=== PATIENT | male | born 1955 | race Caucasian/White ===

== ENCOUNTER 2017-01-23 15:02 | Emergency (ER) | payer MEDICAID ==
[~2017-01-23] VITALS: Ht 180.3 cm; Wt 107.5 kg
--- NOTE | 2017-01-23 15:13 | Emergency Room Report ---
History of Present Illness Time Seen by MD Lemons Presenting Problem in Triage Pt arrived: Presenting Problem: Onset of symptoms date/time:/ or onset unknown for: Treatment Prior to Arrival: [employer] Provided by: Sepsis Risk Assessment: Temp: B/P: MAP: Pulse: Resp: Recent fever? Clinical Suspician of Infection? Mental Status: Sepsis Risk: Have you (or family members/close friends) recently traveled outside the [place]? If Yes, where/when: Have you had exposure to infectious disease within the past month? TB? Other? Specify: Source patient, RN notes reviewed Exam Limitations no limitations Comment Pt has had this feeding tube since September. This morning the tip of the tube came off and he threw it away. He comes to the ED to see if he can get a replacement. He has no other problems at this time Cardiac Chest Pain Chest pain indicative of cardiac No ALLERGIES Coded Allergies: No Known Allergies (01/23/17) Home Medications Reported Medications Levetiracetam (Keppra 500 Mg Tablet) 1,500 MG PO QHS Levetiracetam (Keppra 500 Mg Tablet) 1,000 MG PO DAILY Levothyroxine Sodium (Levothroid) 0.2 MG PO DAILY ASPIRIN (Aspirin) 81 MG PO DAILY Allopurinol (Zyloprim 300MG Tab Generic) 300 MG PO QHS Lisinopril (Zestril 20MG Tab) 20 MG PO QHS Indomethacin (Indocin) 25 MG PO QHS Nortriptyline Hcl 50 MG PO QHS Atorvastatin Calcium (Atorvastatin) 40 MG PO DAILY Lansoprazole (Lansoprazole) 30 MG PO DAILY #30 History Medical History General Angina: No [place]: No Hypertension? Yes Hyperlipidemia? Yes CHF? No COPD? No Asthma? No CVA? Yes Seizures? Yes Diabetes? No GB Disease: No MRSA? No TB? No Cancer? No Immunization Hx DT/Tetanus > 10 Years Ago Surgical Hx Previous Surgery?Y RIGHT KNEE FEEDING TUBE Social History Smoking Hx Packs/day < 1 Pack Alcohol Alcohol: No Review of Systems All Other Systems Reviewed and Negative Constitutional see HPI Gastrointestinal see HPI Physical Exam Vital Signs Vital Signs Date Time Temp Pulse Resp B/P Pulse O2 O2 Flow FiO2 Ox Delivery Rate 01/23 1504 98.3 85 18 112/77 98 General Appearance no apparent distress Respiratory Status No: respiratory distress. Cardiovascular normal exam Gastrointestinal normal bowel sounds, feeding tube with the tip pulled off. 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 No Departure Departure Time of Disposition 152 Disposition DC Home or Self Care(routine) Clinical Impression Primary Impression: PEG tube malfunction Condition STABLE Referrals MICHEAL ABBASI (Family) Additional Instructions Pt's port on his feeding tube was replaced and he is ready to go home. Discharge Counseling Counseled pt/family regarding diagnosis, home care, follow up needs ED Critical Care Critical Care No If Critical Care minutes are documented, the time involved in the performance of seperately reportable procedures was not counted toward critical care time documented. I directly delivered medical care to this critically ill and/or injured patient. Timely evaluation and treatment was necessary to address the significant organ system(s) dysfunction present in this patient. at [id number]
--- NOTE | 2017-01-23 15:13 | Emergency Room Report ---
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 Clinical Suspician of Infection? Mental Status: Sepsis Risk: Have you (or family members/close friends) recently traveled outside the [place]? If Yes, where/when: Have you had exposure to infectious disease within the past month? TB? Other? Specify: Source patient, RN notes reviewed Exam Limitations no limitations Comment Pt has had this feeding tube since September. This morning the tip of the tube came off and he threw it away. He comes to the ED to see if he can get a replacement. He has no other problems at this time Cardiac Chest Pain Chest pain indicative of cardiac No ALLERGIES Coded Allergies: No Known Allergies (01/23/17) Home Medications Reported Medications Levetiracetam (Keppra 500 Mg Tablet) 1,500 MG PO QHS Levetiracetam (Keppra 500 Mg Tablet) 1,000 MG PO DAILY Levothyroxine Sodium (Levothroid) 0.2 MG PO DAILY ASPIRIN (Aspirin) 81 MG PO DAILY Allopurinol (Zyloprim 300MG Tab Generic) 300 MG PO QHS Lisinopril (Zestril 20MG Tab) 20 MG PO QHS Indomethacin (Indocin) 25 MG PO QHS Nortriptyline Hcl 50 MG PO QHS Atorvastatin Calcium (Atorvastatin) 40 MG PO DAILY Lansoprazole (Lansoprazole) 30 MG PO DAILY #30 History Medical History General Angina: No [place]: No Hypertension? Yes Hyperlipidemia? Yes CHF? No COPD? No Asthma? No CVA? Yes Seizures? Yes Diabetes? No GB Disease: No MRSA? No TB? No Cancer? No Immunization Hx DT/Tetanus > 10 Years Ago Surgical Hx Previous Surgery?Y RIGHT KNEE FEEDING TUBE Social History Smoking Hx Packs/day < 1 Pack Alcohol Alcohol: No Review of Systems All Other Systems Reviewed and Negative Constitutional see HPI Gastrointestinal see HPI Physical Exam Vital Signs Vital Signs Date Time Temp Pulse Resp B/P Pulse O2 O2 Flow FiO2 Ox Delivery Rate 01/23 1504 98.3 85 18 112/77 98 General Appearance no apparent distress Respiratory Status No: respiratory distress. Cardiovascular normal exam Gastrointestinal normal bowel sounds, feeding tube with the tip pulled off. 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 No Departure Departure Time of Disposition 152 Disposition DC Home or Self Care(routine) Clinical Impression Primary Impression: PEG tube malfunction Condition STABLE Referrals MICHEAL ABBASI (Family) Additional Instructions Pt's port on his feeding tube was replaced and he is ready to go home. Discharge Counseling Counseled pt/family regarding diagnosis, home care, follow up needs ED Critical Care Critical Care No If Critical Care minutes are documented, the time involved in the performance of seperately reportable procedures was not counted toward critical care time documented. I directly delivered medical care to this critically ill and/or injured patient. Timely evaluation and treatment was necessary to address the significant organ system(s) dysfunction present in this patient. at [id number]
[2017-01-23 15:27] VITALS: BP 110/75
--- OUTSIDE RECORDS SUMMARY | 2017-02-02 04:21 | External Medical Summary Rpt | CCD ---
Author Author , KITTY Organization [facility] Address Unknown Phone Care Team Providers Care Secondary Spanish Teacher Name Role Phone [employer] Unavailable Unavailable INC, [employer] Unavailable Unavailable INC, [employer] [facility], Unavailable Unavailable [facility] ELROY, ELROY Unavailable Unavailable ELROY TRO, Unavailable Unavailable ELROY TRO BATTA BROWN, BATTA BROWN Unavailable Unavailable [facility] Unavailable Unavailable [facility], [facility] BIRRER PAT, BIRRER Unavailable Unavailable PAT AGUAYO NORA, AGUAYO NORA Unavailable Unavailable SUMAYA III ALICIA, Unavailable Unavailable SUMAYA III ALICIA CALLI, CALLI Unavailable Unavailable CALLI LAW, CALLI Unavailable Unavailable LAW [facility], [facility] BROWN TY, BROWN TY Unavailable Unavailable MARY MICAH, MARY Unavailable Unavailable MICAH MOHINI DEL, Unavailable Unavailable MOHINI DEL CAMILLI, CAMILLI Unavailable Unavailable [facility]ANE E[facility], Unavailable Unavailable [facility] CLAYBON LORENZO, CLAYBON Unavailable Unavailable LORENZO [facility] Unavailable Unavailable PHYSICIANS, [facility] Unavailable Unavailable INC, [facility] COUCH, COUCH Unavailable Unavailable YURIDIA SHARLA, Unavailable Unavailable YURIDIA SHARLA [facility] Unavailable Unavailable BEHAVIORAL, [facility] DEVARAJAN VID, Unavailable Unavailable DEVARAJAN VID DAVILA WANDA, DAVILA WANDA Unavailable Unavailable DOERGER, DOERGER Unavailable Unavailable DOMET AP, DOMET AP Unavailable Unavailable [facility], Unavailable Unavailable [facility] LANE JAM, LANE JAM Unavailable Unavailable [facility] Unavailable Unavailable [facility], [facility] MINDA SALDIVAR, MINDA Unavailable Unavailable JANNA FERTIKH VINCENT, FERTIKH Unavailable Unavailable VINCENT EUGENIA MICAH, EUGENIA MICAH Unavailable Unavailable EUGENIA JEFF, EUGENIA JEFF Unavailable Unavailable SABRINA AP, SABRINA Unavailable Unavailable AP JACY CANDE, JACY Unavailable Unavailable CANDE JETER MEGAN, JETER MEGAN Unavailable [facility]available [facility] Un[facility], [facility] Unavailable Unavailable [facility]OC, [facility] Unavailable Unavailable [place] [facility], [facility] [place] [facility], Unavailable Unavailable [facility], Unavailable Unavailable [facility], [facility]available [facility]available [facility] HULLER RAL, HULLER Unavailable Unavailable RAL IMWALLE LLOYD, IMWALLE Unavailable Unavailable LLOYD IN[facility]END[facility] Unavailable Unavailable ANESTHESIOLOGIST, [facility] IN[facility] DISE[facility] Unavailable Unavailable CONSULTAN, INFECTIOUS DISEASE CONSULTAN WICHO SHERMAN, OD, Unavailable Unavailable [facility], [facility] SHERMAN, OD, PSC JIBRINI MHA, JIBRINI Unavailable Unavailable MHA JIBRINI MHA, JIBRINI Unavailable Unavailable MHA COREY MAR, COREY Unavailable Unavailable MAR KALFAS MIN, KALFAS Unavailable Unavailable MIN KEMPINERS, KEMPINERS Unavailable Unavailable KEMPINERS JAM, Unavailable Unavailable KEMPINERS JAM [facility] Unavailable Unavailable IMAGING [facility], [facility] Unavailable Unavailable CARE, [facility] KERMAN ISAIAH, KERMAN Unavailable Unavailable ISAIAH CHELITA GIA, CHELITA GIA Unavailable Unavailable FRIAS, FRIAS Unavailable Unavailable [facility] Unavailable Unavailable 9, [facility] 9 [facility] Unavailable Unavailable ACTION_I, [facility] ACTION_I [facility] N, Unavailable Unavailable [facility] N LUBBERS MARJ, LUBBERS Unavailable Unavailable MARJ AGOSTO BYR, AGOSTO BYR Unavailable Unavailable VANG DOMINGA, Unavailable Unavailable VANG DOMINGA MARY CARMEN AP, MARY CARMEN Unavailable Unavailable AP MCDANNOLD TER, Unavailable Unavailable MCDANNOLD TER MEDEYINLO JASMINA, Unavailable Unavailable MEDEYINLO JASMINA TIO MAR, TIO MAR Unavailable Unavailable Martin, Martin Unavailable Unavailable ARLINE ATT, ARLINE Unavailable Unavailable ATT MILES PAT, MILES PAT Unavailable Unavailable BUNCH BRA, BUNCH Unavailable Unavailable BRA ARGENTINA NORA, ARGENTINA Unavailable Unavailable NORA TONY NORA, TONY Unavailable Unavailable NORA [facility], Unavailable Unavailable [facility] Unavailable Unavailable CARE, [place], [facility], Unavailable Unavailable [facility], [facility], Unavailable Unavailable [facility], Unavailable Unavailable [facility] Unavailable [facility]available [facility] Unavailable Unavailable [facility], [facility] Unavailable Unavailable [facility], [facility] Unavailable Unavailable [facility], [facility] PETTEY JAM, PETTEY Unavailable Unavailable [facility] Unavailable Unavailable [facility], [facility] Unavailable Unavailable [facility], [facility] CEJA GUY, Unavailable Unavailable CEJA GUY [facility] Unavailable Unavailable [place], [facility], [facility] Unavailable Unavailable ROSS GUR, ROSS Unavailable Unavailable GUR POLI CHR, POLI CHR Unavailable Unavailable SCHACK DENIA, SCHACK Unavailable Unavailable DENIA ROCK AP, ROCK Unavailable Unavailable AP RALPH GAR, RALPH Unavailable Unavailable GAR RALPH JAM, RALPH Unavailable Unavailable JAM SCHUSSLER, SCHUSSLER Unavailable Unavailable ANKUR GAR, ANKUR Unavailable Unavailable GAR MORENO PRA, MORENO PRA Unavailable Unavailable QUIRZO BARNEY, QUIROZ BARNEY Unavailable Unavailable [facility] Unavailable Unavailable [facility] Unavailable Unavailable HEALTHCARE EDGE, [facility] Unavailable Unavailable CARE, [facility] Unavailable Unavailable HOSPITAL, [facility], Unavailable Unavailable [facility]available Unavailable JUICE SCALEMAN , [facility] JUICE SCALEMAN [facility] Unavailable Unavailable CENTER, [facility] Unavailable Unavailable MEDICALCENTER, [facility] Unavailable Unavailable PHYSICIANS, [facility] Unavailable Unavailable PHYSICIANS EKG, [facility] Unavailable Unavailable PHYSICIANS END, [facility] Unavailable Unavailable [facility] END, [facility] STEINKAMP NORA, Unavailable Unavailable STEINKAMP NORA [facility], Unavailable Unavailable [facility], Unavailable Unavailable [facility], Unavailable Unavailable [facility] Unavailable Unavailable #5, [facility] UPADHAYAY ROBLES, Unavailable Unavailable UPADHKENY ROBLES VEAZEY AP, VEAZEY Unavailable Unavailable AP WHATLEY, WHATLEY Unavailable Unavailable WELLS NATALIA, WELLS NATALIA Unavailable Unavailable WELLS SEA, WELLS SEA Unavailable Unavailable JAJA, JAJA Unavailable Unavailable MERRY COLON, Unavailable Unavailable MERRY COLON GRAY, GRAY Unavailable Unavailable ARCELIA JR, ARCELIA Unavailable Unavailable JR MONIKA ANT, Unavailable Unavailable MONIKA ANT Purpose Continuity of Care Document - 09-28-2009 through 2016 Problems Code Diagnosis DOS Provider Status [id number] LOC-REL SX 11-08-2016 EPILEPSY [facility] W/SPS NOT HOME CARE INTRACT W/O SE I10 ESSENTIAL 11-08-2016 PRIMARY [facility] HYPERTENSIO [facility] C[facility] N B71282 HEMIPLEGIA 11-08-2016 FLW [facility] CEREBRAL HOME CARE INFARCT AFF LT NON-DOM [id number] DYSPHAGIA 11-08-2016 FOLLOWING [facility] INFARCTION I739 PERIPHERAL 11-08-2016 VASCULAR [facility] DISEASE HOME CARE UNSPECIFIED R1312 DYSPHAGIA 11-08-2016 OROPHARYNGE [facility] AL PHASE HOME CARE C95198 PERSONAL 11-08-2016 HISTORY OF [facility] NICOTINE HOME CARE DEPENDENCE Z931 GASTROSTOMY 11-08-2016 STATUS [facility] G8114 SPASTIC 10-17-2016 HEMIPLEGIA [facility] AFFECTING PHYSICIANS LT NONDOMINANT SIDE R69 ILLNESS 10-17-2016 LKLP CAC UNSPECIFIED INC REGION 9 Z6836 BODY MASS 10-17-2016 INDEX BMI [facility] 36.0-36.9 PHYSICIANS ADULT Z8589 PERSONAL HX 10-17-2016 MALIG [facility] NEOPLASM PHYSICIANS OTH ORGANS & SYSTEMS Z8673 PERSONAL HX 10-17-2016 TIA & [facility] CEREB PHYSICIANS INFARCT NO RESID DEFICIT K222 ESOPHAGEAL 10-06-2016 OBSTRUCTION [facility] PHYSICIANS K9429 OTHER 10-06-2016 COMPLICATIO [facility] NS OF PHYSICIANS GASTROSTOMY R633 FEEDING 10-06-2016 DIFFICULTIE [facility] S PHYSICIANS Z431 ENCOUNTER 10-05-2016 FOR [facility] ATTENTION PHYSICIANS TO GASTROSTOMY C140 MALIGNANT 10-04-2016 NEOPLASM OF [facility]X [facility] UNSPECIFIED EDGE K9423 GASTROSTOMY 10-04-2016 [facility] MALFUNCTION HEALTHCARE EDGE M109 GOUT 10-04-2016 ST UNSPECIFIED [facility] PHYSICIANS R1310 DYSPHAGIA 10-04-2016 ST UNSPECIFIED [facility] PHYSICIANS R52 PAIN 10-04-2016 [facility] UNSPECIFIED CO AMBULANCE TAXIN R531 WEAKNESS 10-04-2016 [facility] CO AMBULANCE TAX[facility] [id number] OTH MECH 10-04-2016 ST COMP OTH GI [facility] IMPL GFT EDGE INIT ENC Z439 ENCOUNTER 10-04-2016 [facility] FOR CO ATTENTION AMBULANCE UNS TAXIN ARTIFICIAL OPENING Z743 NEED FOR 10-04-2016 [facility] CONTINUOUS CO SUPERVISION AMBULANCE TAXIN K9422 GASTROSTOMY 09-12-2016 INFECTION [facility] PHYSICIANS W01661 CELLULITIS 09-12-2016 ST OF TRUNK [facility] UNSPECIFIED PHYSICIANS G4733 OBSTRUCTIVE 08-31-2016 PATIENT SLEEP [facility] INC [facility] ADULT PEDIATRIC M5116 INTERVERTEB 08-15-2016 [facility] D/O C CENTER W/RADICULOP ATHY LUMB RGN M9901 SEGMENTAL & 08-15-2016 [facility] DYSFUNCTION C CENTER CERVICAL REGION M9902 SEGMENTAL & 08-15-2016 [facility] DYSFUNCTION C CENTER THORACIC REGION Y24856 OTHER 08-09-2016 [facility] [place] [facility] INFARCTION R262 DIFFICULTY 08-09-2016 [facility] IN WALKING [place] NOT [place] [facility] ELSEWHERE CLASSIFIED Z4689 ENCOUNTER 08-09-2016 [facility] FITTING & [place] ADJUSTMENT [place] [facility] OT SPEC DEVICES Z993 DEPENDENCE 08-09-2016 [facility] ON [place] WHEELCHAIR [place] [facility] M170 BILATERAL 07-28-2016 PRIMARY [facility] OSTEOARTHRI PHYSICIANS TIS OF KNEE Z6835 BODY MASS 07-28-2016 ST INDEX BMI [facility] 35.0-35.9 PHYSICIANS ADULT B9689 OTH SPEC 07-15-2016 BACTERIAL [facility] AGNT CAUSE PHYSICIANS DZ CLASSIFIED ELSW J0190 ACUTE 07-15-2016 SINUSITIS [facility] UNSPECIFIED PHYSICIANS K219 GASTRO-ESOP 07-15-2016 ST H REFLUX [facility] DISEASE PHYSICIANS WITHOUT ESOPHAGITIS R05 COUGH 07-15-2016 ST [facility] PHYSICIANS R110 NAUSEA 07-15-2016 ST [facility] PHYSICIANS R509 FEVER 07-15-2016 UNSPECIFIED [facility] PHYSICIANS Z6834 BODY MASS 07-15-2016 ST INDEX BMI [facility] 34.0-34.9 PHYSICIANS ADULT E785 HYPERLIPIDE 07-11-2016 ST JULIANE [facility] UNSPECIFIED HEALTHCARE EDGE I951 ORTHOSTATIC 07-11-2016 [facility] HYPOTENSION MED CTR I9589 OTHER 07-11-2016 HYPOTENSION [facility] PHYSICIANS I959 HYPOTENSION 07-11-2016 [facility] UNSPECIFIED OF NOTH M1990 UNSPECIFIED 07-11-2016 [facility] OSTEOARTHRI MED CTR TIS UNSPECIFIED SITE R000 TACHYCARDIA 07-11-2016 [facility] UNSPECIFIED PHYSICIANS R12 HEARTBURN 07-11-2016 ST [facility] HEALTHCARE ED[facility] R7302 IMPAIRED 07-11-2016 GLUCOSE [facility] ORAL EDGE Z08 ENCOUNTER 07-11-2016 ST F/U EXAM [facility] AFTER CMPL PHYSICIANS TX MALIG NEOPLASM D96581 PERSONAL HX 07-11-2016 MAL SADIE [facility] OTH SITE PHYSICIANS LIP ORL CAV&PHARYNX Z923 PERSONAL 07-11-2016 HISTORY OF [facility] IRRADIATION HEALTHCARE EDGE R0602 SHORTNESS 06-15-2016 [facility] OF BREATH CO AMBULANCE TAXIN R062 WHEEZING 06-15-2016 [facility] CO AMBULANCE TAXIN Z452 ENCOUNTER 06-13-2016 ADJUSTMENT& [facility] MGMT HEALTHCARE VASCULAR EDGE ACCESS DEVICE K5909 OTHER 06-06-2016 CONSTIPATIO [facility] N PHYSICIANS E7800 PURE 05-17-2016 HYPERCHOLES [facility] TEROLEMIA PHYSICIANS UNSPECIFIED Z1159 ENCOUNTER 05-17-2016 FOR [facility] SCREENING PHYSICIANS FOR OTHER VIRAL DISEASES Z09 ENC F/U 05-12-2016 ST EXAM AFTR [facility] CMPL TX OTH MED CTR THAN MALIG NEOPLSM E039 HYPOTHYROID 05-09-2016 ST ISM [facility] UNSPECIFIED HEALTHCARE EDGE E669 OBESITY 05-09-2016 UNSPECIFIED [facility] HEALTHCARE EDGE R1314 DYSPHAGIA 05-09-2016 PHARYNGOESO [facility]AL [facility] PHASE EDGE B73184M UNS FB RESP 04-19-2016 ST TRACT PART [facility] UNS CAUS PHYSICIANS OTH INJ INT ENC C760 MALIGNANT 03-29-2016 RADIOLOGY NEOPLASM OF ASSOCIATES HEAD FACE OF NOTH AND NECK I517 CARDIOMEGAL 03-29-2016 ST Y [facility] MED CTR JUICE SCALEM[facility] ST Z7982 CUSTODIAL 03-29-2016 ST CURRENT USE [facility] OF ASPIRIN MED CTR JUICE SCALEMAN ST O75365 OTHER LONG 03-29-2016 ST TERM [facility] CURRENT MED CTR JUICE SCALEMAN DRUG ST THERAPY R2689 OTHER 03-23-2016 [facility] ABNORMALITI CO ES OF GAIT AMBULANCE AND TAXIN MOBILITY L22376 FACIAL 03-23-2016 [facility] WEAKNESS CO AMBULANCE TAXIN R413 OTHER 03-23-2016 [place] AM[facility] R4182 ALTERED 03-23-2016 [place] MENTAL MEDICAL STATUS IMAGING ASS UNSPECIFIED R42 DIZZINESS 03-23-2016 SHAI AND CO GIDDINESS AMBULANCE TAXIN R569 UNSPECIFIED 03-23-2016 [facility]ANS, CONVULSIONS [facility] M179 OSTEOARTHRI 02-23-2016 PATIENT TIS OF KNEE AIDS INC UNSPECIFIED C024 MALIGNANT 02-09-2016 HEAD & NECK NEOPLASM OF SURGERY LINGUAL ASSOC TONSIL R490 DYSPHONIA 02-09-2016 [facility] SURGERY ASSOC R682 DRY MOUTH 02-09-2016 HEAD & NECK UNSPECIFIED SURGERY ASSOC K27637 CELLULITIS 01-19-2016 ST OF BUTTOCK [facility] PHYSICIANS Z23 ENCOUNTER 01-19-2016 ST FOR [facility] IMMUNIZATIO PHYSICIANS N Z6838 BODY MASS 01-19-2016 ST INDEX BMI [facility] 38.0-38.9 PHYSICIANS ADULT E780 PURE 11-06-2015 ST HYPERCHOLES [facility] TEROLEMIA PHYSICIANS M1711 UNILATERAL 11-06-2015 ST PRIMARY [facility] OSTEOARTHRI PHYSICIANS TIS RIGHT KNEE H905 UNSPECIFIED 10-20-2015 ST [facility] SENSORINEUR MED CTR JUICE SCALEMAN AL HEARING ST LOSS K117 DISTURBANCE 10-20-2015 ST S OF [facility] SALIVARY MED CTR JUICE SCALEMAN SECRETION ST J384 EDEMA OF 08-07-2015 HEAD & NECK LARYNX SURGERY ASSOC K81211 ENCOUNTER 08-04-2015 ST FOR OTHER [facility] PREPROCEDUR MED CTR AL EXAMINATION G8110 SPASTIC 08-03-2015 ST HEMIPLEGIA [facility] AFFECTING PHYSICIANS UNSPECIFIED SIDE R1319 OTHER 07-13-2015 ST DYSPHAGIA [facility] MED CTR JUICE SCALEMAN ST I313 PERICARDIAL 07-10-2015 ST EFFUSION [facility] NONINFLAMMA MED CTR JUICE SCALEMAN TORY ST J3800 PARALYSIS 07-10-2015 ST OF VOCAL [facility] CORDS AND MED CTR JUICE SCALEMAN LARYNX ST UNSPECIFIED J90 PLEURAL 07-10-2015 RAD[facility]OLOGY EFFUSION ASSOCIATES NOT OF NOTH ELSEWHERE CLASSIFIED S47927 PERSONAL HX 07-10-2015 ST MAL SADIE [facility] UNS SITE MED CTR JUICE SCALEMAN LIP ORL ST CAV&PHARYNX C099 MALIGNANT 06-30-2015 HEAD & NECK NEOPLASM OF SURGERY TONSIL ASSOC UNSPECIFIED H903 SENSORINEUR 06-30-2015 HEAD & NECK AL HEARING SURGERY LOSS ASSOC BILATERAL H9319 TINNITUS 06-30-2015 HEAD & NECK UNSPECIFIED SURGERY EAR ASSOC I6990 UNS 02-28-2015 PERSONAL SEQUELAE TOUCH HOME UNSPECIFIED CARE OF CEREBROVASC ULAR DISEASE R32 UNSPECIFIED 02-28-2015 PERSONAL URINARY TOUCH HOME INCONTINENC CARE OF E Z26602 REGULAR 02-23-2015 WICHO SHERMAN, OD, BILATERAL PSC H6123 IMPACTED 02-05-2015 HEAD & NECK CERUMEN SURGERY BILATERAL ASSOC Z430 ENCOUNTER 02-05-2015 HEAD & NECK FOR SURGERY ATTENTION ASSOC TO TRACHEOSTOM Y 2749 GOUT, 01-09-2015 ST UNSPECIFIED [facility] PHYSICIANS 85188 UNSPECIFIED 01-09-2015 ST ACUTE [facility] CONJUNCTIVI PHYSICIANS TIS 94172 01-09-2015 LKLP CAC INC REGION 9 9349 FOREIGN 01-09-2015 ST BODY IN [facility] RESPIRATORY PHYSICIANS TREE UNSPECIFIED 2114 BENIGN 01-07-2015 ST NEOPLASM OF [facility] RECTUM AND MED CTR JUICE SCALEMAN ANAL CANAL ST 5690 ANAL AND 01-07-2015 ST. RECTAL [facility] POLYP PHYSICIANS END V1002 PERS HX MAL 01-07-2015 ST NEOPLSM [facility] OTH&UNS MED CTR JUICE SCALEMAN PART ORL ST CAV&PHARYNX V7651 SPECIAL 01-07-2015 ST. SCREENING [facility] FOR PHYSICIANS MALIGNANT END NEOPLASMS COLON 4389 UNSPEC LATE 12-27-2014 PERSONAL EFF TOUCH HOME [place]EREBRVASC [place] [address] UNSPECIFIED 12-27-2014 PERSONAL URINARY TOUCH HOME INCONTINENC CARE OF E 1416 MALIGNANT 12-19-2014 ST NEOPLASM OF [facility] LINGUAL MED CTR JUICE SCALEMAN TONSIL ST 1619 MALIGNANT 12-19-2014 ONCOLOGY NEOPLASM OF HEMATOLOGY LARYNX CARE, IN UNSPECIFIED SITE V6759 OTHER 12-19-2014 ST FOLLOW-UP [facility] EXAMINATION MED CTR JUICE SC[place]EM[place] OTHER ST [address] OCCLUSION&S 11-10-2014 ST TENOSIS [facility] VERTEBRAL PHYSICIANS ARTERY W/INFARCT 7295 PAIN IN 11-10-2014 ST SOFT [facility] TISSUES OF PHYSICIANS LIMB 7871 HEARTBURN 11-10-2014 ST [facility] PHYSICIANS 4618 OTHER ACUTE 09-09-2014 HEAD & NECK SINUSITIS SURGERY ASSOC V672 CHEMOTHERAP 09-09-2014 HEAD & NECK Y FOLLOW-UP SURGERY ASSOC EXAMINATION 1460 MALIGNANT 09-01-2014 ST NEOPLASM OF [facility] TONSIL MED CTR JU[address] ST 15293 OSTEOARTHRO 09-01-2014 ST SIS UNSPEC [facility] WHETHER MED CTR JUICE SCALEMAN GEN/LOC ST ANK&FOOT 61717 OBSTRUCTIVE 08-11-2014 PATIENT SLEEP AIDS INC APNEA 11746 LOSS OF 08-05-2014 [place] [address] UNSPEC 07-03-2014 ST HEMIPLEGIA [facility] AFFECTING PHYSICIANS UNSPEC SIDE 20288 ATAXIA 07-03-2014 ST LATE EFFECT [facility] OF PHYSICIANS CEREBROVASC ULAR DISEASE 4400 ATHEROSCLER 06-24-2014 ST OSIS OF [facility] AORTA MED CTR JUICE SCALEM[facility] ST 5920 CALCULUS OF 06-24-2014 ST KIDNEY [facility] [address]52 UNSPECIFIED 05-02-2014 ST CEREBRAL [facility] ARTERY PHYSICIANS OCCLUSION W/INFARCT 71335 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 STAPH CONSULTAN AUREUS SEPTICEMIA 7907 BACTEREMIA 04-28-2014 INFECTIOUS DISEASE CONSULTAN V153 PERS HX 03-28-2014 ST IRRADIATION [facility] PRESENTING MED CTR JUICE SCALEMAN HAZARDS ST [facility]ALTH V5411 AFTERCARE 03-26-2014 [facility] MEDICAL TRAUMATIC IMAGING ASS FRACTURE UPPER ARM V7260 LABORATORY 03-24-2014 ST EXAMINATION [facility] MED CTR JUICE SCALEMAN UNSPECIFIED ST 36491 OTHER LATE 03-15-2014 PERSONAL EFFECTS OF TOUCH HOME CEREBROVASC CARE OF ULAR DISEASE V441 GASTROSTOMY 03-15-2014 [place] [address] CLOSED 03-14-2014 [place] FRACTURE OF [facility] UNSPECIFIED PART OF HUMERUS 05012 CLOSED 03-14-2014 [facility] FRACTURE OF PHYSICIANS SHAFT OF GROUP HUMERUS 1490 MALIGNANT 03-13-2014 RADIOLOGY NEOPLASM OF ASSOCIATES PHARYNX OF [facility] UNSPECIFIED 1990 OTHER 03-13-2014 ST MALIGNANT [facility] NEOPLASM OF MED CTR JUICE SCALEMAN ST UNSPECIFIED SITE 4730 CHRONIC 03-13-2014 ST MAXILLARY [facility] SINUSITIS MED CTR JUICE SCALEM[facility] ST 7856 ENLARGEMENT 03-13-2014 ST OF LYMPH [facility] NODES MED [facility] [place] [address] [address]87 GENERALIZED 03-07-2014 ST PAIN [facility] [address] 25393 CLOSED 03-07-2014 ST FRACTURE [facility] UNSPEC PART MED CTR JUICE SCALEMAN UPPER END ST HUMERUS 79663 CLOSED 03-07-2014 RADIOLOGY FRACTURE OF ASSOCIATES SURGICAL OF NOT NECK OF HUMERUS 10799 OTHER 03-07-2014 ADVANCED CLOSED TECHNOLOGIE FRACTURES S INC OF UPPER END OF HUMERUS 43239 LEUKOCYTOPE 02-25-2014 ST CHIVO [facility] UNSPECIFIED PHYSICIANS 3670 HYPERMETROP 02-20-2014 WICHO SHERMAN, OD, PSC 58606 VITREOUS 02-20-2014 WICHO SHERMAN, OD, N PSC 38579 VOMITING 02-18-2014 ST ALONE [facility] PHYSICIANS 2449 UNSPECIFIED 02-12-2014 JIBRINI MHA HYPOTHYROID ISM 45617 OTHER 02-12-2014 JIBRINI MHA CONVULSIONS V440 TRACHEOSTOM 02-12-2014 JIBRINI MHA Y STATUS 20731 FEVER 02-05-2014 JIBRINI MHA UNSPECIFIED V580 RADIOTHERAP 01-23-2014 ST Y [facility] CTR JUICE SCALEM[facility] ST V5811 ENCOUNTER 01-23-2014 ST FOR [facility] ANTINEOPLAS MED CTR JUICE SCALEMAN TIC ST CHEMOTHERAP Y V5869 LONG-TERM 01-23-2014 ST (CURRENT) [facility] USE OF MED CTR JUICE SCALEMAN OTHER ST MEDICATIONS 7850 UNSPECIFIED 01-22-2014 JIBRINI MHA TACHYCARDIA 92616 NAUSEA WITH 01-22-2014 JIBRINI MHA VOMITING 07040 ABDOMINAL 01-22-2014 JIBRINI MHA PAIN, UNSPECIFIED SITE 4019 UNSPECIFIED 01-15-2014 JIBRINI MHA ESSENTIAL HYPERTENSIO N 2761 HYPOSMOLALI 01-07-2014 ST TY AND/OR [facility] HYPONATREMI PHYSICIANS A 33772 CHEST PAIN 01-07-2014 ST UNSPECIFIED [facility] PHYSICIANS 1950 MALIGNANT 01-03-2014 ONCOLOGY NEOPLASM OF HEMATOLOGY HEAD FACE CARE, IN AND NECK 50751 NEUTROPENIA 01-03-2014 ST [facility] UNSPECIFIED PHYSICIANS 2859 UNSPECIFIED 12-30-2013 [place] [address] DRUG 12-29-2013 ST INDUCED [facility] NEUTROPENIA MED CTR JUICE SCALEM[facility] ST 4589 UNSPECIFIED 12-29-2013 ST [facility] HYPOTENSION MED [facility] 75434 DYSPLASIA 12-29-2013 ST OF ANUS [facility] PHYSICIANS 37806 OTHER 12-27-2013 RADIOLOGY NONSPECIFIC ASSOCIATES ABNORMAL OF [facility] FINDING OF LUNG FIELD 88224 DEHYDRATION 12-13-2013 ONCOLOGY HEMATOLOGY CARE, [place] 5277 DISTURBANCE 12-13-2013 ONCOLOGY OF HEMATOLOGY SALIVARY CARE, IN SECRETION V5881 FITTING AND 12-04-2013 RADIOLOGY ADJUSTMENT ASSOCIATES OF OF [facility] VASCULAR CATHETER 4660 ACUTE 11-22-2013 [facility] BRONCHITIS POINT C[facility] & REHABILI 7197 DIFFICULTY 11-22-2013 [facility] IN WALKING POINT CARE & REHABILI 19934 MUSCLE 11-22-2013 [facility] WEAKNESS POINT CARE (GENERALIZE & REHABILI D) 74947 DYSPHAGIA 11-22-2013 [facility] UNSPECIFIED POINT CARE & REHABILI V550 ATTENTION 11-22-2013 [facility] TO [facility] TRACHEOSTOM & REHABILI Y V551 ATTENTION 11-22-2013 [facility] TO [facility] GASTROSTOMY & REHABILI V5789 OTHER 11-22-2013 [facility] SPECIFIED [facility] REHABILITAT & REHABILI ION PROCEDURE OTHER 70823 UNSPECIFIED 11-04-2013 [place]AT[place] N [address] UNSPECIFIED 11-01-2013 INDEPENDENT DENTAL CARIES ANESTHESIOL OGIST 1471 MALIGNANT 10-31-2013 [facility]LASM [facility] POSTERIOR OF NOT WALL NASOPHARYNX 2390 NEOPLASM 10-31-2013 RADIOLOGY UNSPECIFIED ASSOCIATES NATURE OF [facility] DIGESTIVE SYSTEM V5882 ENCOUNTER 10-31-2013 RADIOLOGY FITTING&ADJ ASSOCIATES OF [facility] NON-VASCULA R CATHETER NEC 2639 UNSPECIFIED 10-29-2013 INDEPENDENT PROTEIN-LESLIE ANESTHESIOL ORIE OGIST MALNUTRITIO N 7833 FEEDING 10-29-2013 ST DIFFICULTIE [facility] S AND PHYS[facility] MISMANAGEME NT 7842 SWELLING 10-29-2013 ST MASS OR [facility] IN PHYSICIANS HEAD AND NECK 63975 HYPOXEMIA 10-29-2013 ST [facility] 7991 RESPIRATORY 10-28-2013 HEAD & NECK ARREST SURGERY ASSOC 46338 LOC-REL 10-22-2013 ST EPILEPSY & [facility] ES W/SPS FT CHEMO W/O INTRACTABL EPIL 42254 HYPERTROPHY 10-22-2013 INDEPENDENT OF TONSILS ALONE ANESTHESIOL OGIST V1254 PERSONAL HX 10-22-2013 ST TIA & CI [facility] W/O FT CHEMO RESIDUAL DEFICITS V1582 PERS HX 10-22-2013 ST TOBACCO USE [facility] PRESENTING FT CHEMO HAZARDS HEALTH V5866 LONG-TERM 10-22-2013 ST USE OF [facility] ASPIRIN FT CHEMO V7284 UNSPECIFIED 10-22-[facility] VE EKG EXAMINATION V8542 BODY MASS 10-22-2013 ST INDEX [facility] 45.0-49.9 FT CHEMO ADULT 2469 UNSPECIFIED 10-02-2013 ST DISORDER [facility] OF THYROID MED [facility] [address] [address] UNSPECIFIED 10-02-2013 ST SLEEP [facility] APNEA [facility] [facility] V641 SURG/OTH 10-02-2013 ST PROC NOT [facility] DONE MED CTR JUICE SCALEMAN BECAUSE ST CONTRAINDIC ATION 4748 OTHER 09-30-2013 CHRONIC [facility] DISEASE OF [place] TONSILS AND ADENOIDS 33355 OTHER 09-30-2013 DISEASES OF [facility] NASAL FT CHEMO CAVITY AND SINUSES 9330 FOREIGN 09-13-2013 ST BODY IN [place] [facility] 9085 LATE EFFECT 08-29-2013 SHAI OF FOREIGN CO BODY IN AMBULANCE ORIFICE TAXIN 9331 FOREIGN 08-29-2013 [place] BODY IN [facility] LARYNX INC 2724 OTHER AND 07-05-2013 UNSPECIFIED [facility] PHYSICIANS HYPERLIPIDE JULIANE 73202 OSTEOARTHRO 07-05-2013 SIS UNSPEC [facility] WHETHER PHYSICIANS GEN/LOC LOWER LEG [id number] IMPAIRED 07-05-2013 [facility] TEST [id number] OTHER ISSUE 07-05-2013 OF [facility] CERTIFICATE S V700 ROUTINE 07-05-2013 [facility] EXAM@HEALTH CARE FACL 2720 PURE 03-14-2013 HYPERCHOLES [facility] TEROLEMIA [facility] V0481 NEED 03-14-2013 PROPHYLACTI [facility] C [facility] VACCINATION &INOCULATIO N FLU V7644 SPECIAL 03-14-2013 SCREENING [facility] NEOPLASM OF PROSTATE 82411 OBESITY, 02-12-2013 UNSPECIFIED [facility] 54718 OTHER 02-12-2013 [facility] FATIGUE [facility] 11390 OTHER 02-12-2013 [facility] [place] [address] SPASM OF 01-01-2013 [facility] 7840 HEADACHE 10-15-2012 [facility] 7019 UNSPECIFIED 01-18-2012 [facility] HYPERTROPHI PHYSICIANS C&ATROPHIC CONDITION SKIN 7820 DISTURBANCE 01-18-2012 OF [facility] 92965 DIAB W/O 10-28-2011 COMP TYPE [facility] II/UNS NOT PHYSICIANS STATED UNCNTRL 7804 DIZZINESS 06-20-2011 [facility] GIDDINESS 3674 PRESBYOPIA 06-07-2011 WICHO SHERMAN, OD, PSC V571 OTHER 06-02-2011 [facility] [place] [address] OTH 06-07-2010 [facility] [place] [address] HEMIPL 04-28-2010 [facility] DUE CEREBRVASC DISEASE 88177 UNSPEC 01-15-2010 [facility]Y [facility] WITHOUT MEDICALCENT MENTION ER INTRACT EPILEPSY V4589 OTHER 01-15-2010 POSTSURGICA [facility] L STATUS MEDICALCENT OTHER ER 5849 ACUTE 12-11-2009 [facility] FAILURE [facility] UNSPECIFIED 76952 GEN CONVUL 12-10-2009 [facility] EPILEPSY HEALTHCARE W/O MENTION IN INTRACT EPILEPSY 46290 LOC-REL 12-10-2009 [facility] & [facility] W/SPS MED CTR W/INTRACTAB LE EPIL 16851 HTN CKD UNS 12-10-2009 W/CKD [facility] STAGE I [facility]ICALCENT THRU STAGE ER IV/UNS 4439 UNSPECIFIED 12-10-2009 PERIPHERAL [facility] DISEASE ER 5859 CHRONIC 12-10-2009 [facility]NEY [facility] DISEASE MEDICAL[facility]ENT UNSPECIFIED ER 7810 ABNORMAL 12-10-2009 [facility] MOVEMENTS AMBULANCE TAXIN V854 BODY MASS 12-10-2009 INDEX 40 [facility] ADULT ER 4011 ESSENTIAL 11-27-2009 HEAD & NECK HYPERTENSIO SURGERY N, BENIGN [facility] 00910 ACUTE 11-27-2009 HEAD & NECK GINGIVITIS SURGERY NONPLAQUE ASSOC INDUCED 51512 STOMATITIS 11-27-2009 HEAD & NECK AND SURGERY MUCOSITIS ASSOC UNSPECIFIED 7[address] AND 11-17-2009 ST COLLAPSE [facility] 58887 CEREBRAL 11-15-2009 THROMBOSIS [facility] WITH [facility] CTR CEREBRAL INFARCTION 19420 PAIN IN 11-03-2009 [facility] PSC 07414 PAIN IN 09-28-2009 [facility] Allergies, Adverse Reactions, Alerts Clinical Alert Notifications Alert Member has >/= 3 hosp admit & >/= 1 ED visit in 365 days Medications Na ND Rx Da Fi Fi Am Da Di Ph RX Ph St me C No te ll ll ou ys ag ar # ys at rm s nt no ma ic us Or Da si cy ia de te s n re d AT 60 09 10 30 30 00 TO Ac OR 50 -0 -0 .0 00 TA ti VA 52 5- 6- [address] 58 20 20 95 CA AT 00 17 17 69 RE IN 8 33 PH 40 AR MA MG CY TA #5 BL ET LE 16 09 10 15 30 00 TO Ac VE 71 -0 -0 0. 00 TA ti TI 40 5- 6- 00 00 L ve RA 35 20 20 0 95 CA CE 50 17 17 51 RE TA 1 67 M PH 50 AR 0 MA MG CY TA #5 BL ET AL 16 08 09 30 30 00 TO Ac LO 71 -2 -2 .0 00 TA ti PU 40 1- 2- 00 00 L ve RI 04 20 20 95 CA NO 21 17 17 63 RE L 1 15 30 PH 0 AR MG MA CY TA BL #5 ET NO 51 08 09 60 30 00 TO Ac RT 67 -2 -2 .0 00 TA ti RI 24 1- 2- 00 00 L ve PT 00 20 20 95 CA YL 30 17 17 17 RE IN 2 51 E PH HC AR L MA 50 CY MG #5 CA P LI 00 08 09 30 30 00 TO Ac SI 18 -2 -2 .0 00 TA ti NO 50 1- 2- 00 00 L ve MN 62 20 20 94 CA IL 01 17 17 73 RE 0 13 20 PH AR MG MA CY TA BL #5 ET LE 00 08 09 30 30 00 TO Ac VO 37 -0 -0 .0 00 TA ti TH 81 8- 1- 00 00 L ve YR 80 20 20 94 CA OX 31 17 17 44 RE IN 0 95 E PH 50 AR MA MC CY G TA #5 BL ET LE 16 08 09 15 30 00 TO Ac VE 71 -0 -0 0. 00 TA ti TI 40 4- 1- 00 00 L ve RA 35 20 20 0 95 CA CE 50 17 17 51 RE TA 1 67 M PH 50 AR 0 MA MG CY TA #5 BL ET AT 60 07 08 30 30 00 TO Ac OR 50 -2 -2 .0 00 TA ti VA 52 4- 5- [address] 58 20 20 95 CA AT 00 17 17 69 RE IN 8 33 PH 40 AR MA MG CY TA #5 BL ET NO 51 07 08 60 30 00 TO Ac RT 67 -2 -2 .0 00 TA ti RI 24 4- 5- 00 00 L ve PT 00 20 20 95 CA YL 30 17 17 17 RE IN 2 51 E PH HC AR L MA 50 CY MG #5 CA P SM 49 07 08 30 30 00 TO Ac 34 -1 -1 .0 00 TA ti LA 80 7- 8- 00 00 L ve NS 30 20 20 95 CA OP 16 17 17 62 RE RA 1 94 ZO PH LE AR MA DR CY 15 #5 MG CA P ME 00 07 08 12 30 00 TO TO 09 -2 -1 0. 00 TA ti CL 32 2- 8- 00 00 L ve OP 20 20 20 0 94 CA RA 40 17 17 56 RE MS 5 32 DE PH 5 AR MA MG CY TA #5 BL ET AL 16 07 08 30 30 00 TO LO 71 -1 -1 .0 00 TA ti PU 40 8- 8- 00 00 L ve RI 04 20 20 95 CA NO 21 17 17 63 RE L 1 15 30 PH 0 AR MG MA CY TA BL #5 ET LI 00 07 08 30 30 00 TO SI 18 -1 -1 .0 00 TA ti NO 50 7- 8- 00 00 L ve MN 62 20 20 94 CA IL 01 17 17 73 RE 0 13 20 PH AR MG MA CY TA BL #5 ET LE 16 07 08 15 30 00 TO Ac VE 71 -0 -0 0. 00 TA ti TI 40 6- 4- 00 00 L ve RA 35 20 20 0 95 CA CE 50 17 17 51 RE TA 1 67 M PH 50 AR 0 MA MG CY TA #5 BL ET LE 00 07 08 30 30 00 TO Ac VO 37 -0 -0 .0 00 TA ti TH 81 3- 4- 00 00 L ve YR 80 20 20 94 CA OX 31 17 17 44 RE IN 0 95 E PH 50 AR MA MC CY G TA #5 BL ET AT 69 06 07 30 30 00 TO Ac OR 09 -2 -2 .0 00 TA ti VA 70 6- 8- [address] 89 20 20 94 CA AT 91 17 17 18 RE IN 5 06 PH 40 AR MA MG CY TA #5 BL ET ME 00 06 07 12 30 00 TO Ac TO 09 -2 -2 0. 00 TA ti CL 32 6- 8- 00 00 L ve OP 20 20 20 0 94 CA RA 40 17 17 56 RE MS 5 32 DE PH 5 AR MA MG CY TA #5 BL ET ME 61 06 07 30 30 00 TO Ac LO 44 -1 -2 .0 00 TA ti XI 20 9- 1- 00 00 L ve CA 12 20 20 95 CA M 61 17 17 31 RE 7. 0 12 5 PH MG AR MA TA CY BL ET #5 NO 51 06 07 60 30 00 TO RT 67 -1 -2 .0 00 TA ti RI 24 9- 1- 00 00 L ve PT 00 20 20 95 CA YL 30 17 17 17 RE IN 2 51 E PH HC AR L MA 50 CY MG #5 CA P LI 00 06 07 30 30 00 TO SI 18 -1 -0 .0 00 TA ti NO 50 2- 7- 00 00 L ve MN 62 20 20 94 CA IL 01 17 17 73 RE 0 13 20 PH AR MG MA CY TA BL #5 ET AL 16 06 07 30 30 00 TO LO 71 -1 -0 .0 00 TA ti PU 40 2- 7- 00 00 L ve RI 04 20 20 92 CA NO 21 17 17 07 RE L 1 09 30 PH 0 AR MG MA CY TA BL #5 ET LA 55 06 07 30 30 00 TO Ac NS 11 -1 -0 .0 00 TA ti OP 10 2- 7- 00 00 L ve RA 39 20 20 94 CA ZO 90 17 17 37 RE LE [address] AR MA 30 CY MG #5 CA PS UL E LE 16 05 06 15 25 00 TO Ac VE 71 -3 -3 0. 00 TA ti TI 40 0- 0- 00 00 L ve RA 35 20 20 0 95 CA CE 50 17 17 18 RE TA 1 83 M PH 50 AR 0 MA MG CY TA #5 BL ET LE 00 05 06 30 30 00 TO Ac VO 37 -3 -3 .0 00 TA ti TH 81 0- 0- 00 00 L ve YR 80 20 20 94 CA OX 31 17 17 44 RE IN 0 95 E PH 50 AR MA MC CY G TA #5 BL ET NE 00 06 06 28 28 00 TO Ac XI 57 -0 -3 .0 00 TA ti UM 32 1- 0- 00 00 L ve 45 20 20 94 CA 24 02 17 17 56 RE HR 8 31 PH 22 AR .3 MA CY MG #5 CA PS UL E AT 69 05 06 30 30 00 TO Ac OR 09 -2 -2 .0 00 TA ti VA 70 3- 3- [address] 89 20 20 94 CA AT 91 17 17 18 RE IN 5 06 PH 40 AR MA MG CY TA #5 BL ET CE 00 05 06 40 10 00 TO PH 09 -2 -2 0. 00 TA ti AL 34 2- 3- 00 00 L ve EX 17 20 20 0 95 CA IN 77 17 17 11 RE 4 39 25 PH 0 AR MG MA /5 CY ML #5 JANE SP LE 16 05 06 15 30 00 TO VE 71 -0 -0 0. 00 TA ti TI 40 1- 2- 00 00 L ve RA 35 20 20 0 94 CA CE 50 17 17 24 RE TA 1 85 M PH 50 AR 0 MA MG CY TA #5 BL ET LA 55 05 06 30 30 00 TO NS 11 -0 -0 .0 00 TA ti OP 10 5- 2- 00 00 L ve RA 39 20 20 94 CA ZO 90 17 17 37 RE LE [address] AR MA 30 CY MG #5 CA PS UL E AL 16 05 06 30 30 00 TO LO 71 -1 -0 .0 00 TA ti PU 40 2- 2- 00 00 L ve RI 04 20 20 92 CA NO 21 17 17 07 RE L 1 09 30 PH 0 AR MG MA CY TA BL #5 ET NO 51 05 06 60 30 00 TO RT 67 -0 -0 .0 00 TA ti RI 24 8- 2- 00 00 L ve PT 00 20 20 94 CA YL 30 17 17 41 RE IN 2 22 E PH HC AR L MA 50 CY MG #5 CA P LI 00 05 06 30 30 00 TO SI 18 -0 -0 .0 00 TA ti NO 50 8- 2- 00 00 L ve MN 62 20 20 94 CA IL 01 17 17 73 RE 0 13 20 PH AR MG MA CY TA BL #5 ET LE 00 04 05 30 30 00 TO VO 37 -2 -1 .0 00 TA ti TH 81 6- 9- 00 00 L ve YR 80 20 20 94 CA OX 31 17 17 44 RE IN 0 95 E PH 50 AR MA MC CY G TA #5 BL ET ME 61 04 05 30 30 00 TO LO 44 -1 -1 .0 00 TA ti XI 20 9- 2- 00 00 L ve CA 12 20 20 94 CA M 61 17 17 41 RE 7. 0 23 5 PH MG AR MA TA CY BL ET #5 AT 69 04 05 30 30 00 TO OR 09 -2 -1 .0 00 TA ti VA 70 1- 2- [address] 89 20 20 94 CA AT 91 17 17 18 RE IN 5 06 PH 40 AR MA MG CY TA #5 BL ET NE 00 04 05 28 28 00 TO XI 57 -1 -1 .0 00 TA ti UM 32 9- 2- 00 00 L ve 45 20 20 94 CA 24 02 17 17 56 RE HR 8 31 PH 22 AR .3 MA CY MG #5 CA PS UL E LI 00 04 05 30 30 00 TO SI 18 -1 -0 .0 00 TA ti NO 50 0- 5- 00 00 L ve MN 62 20 20 92 CA IL 01 17 17 23 RE 0 59 20 PH AR MG MA CY TA BL #5 ET NO 51 04 05 60 30 00 TO RT 67 -1 -0 .0 00 TA ti RI 24 1- 5- 00 00 L ve PT 00 20 20 94 CA YL 30 17 17 41 RE IN 2 22 E PH HC AR L MA 50 CY MG #5 CA P AL 16 04 05 30 30 00 TO LO 71 -1 -0 .0 00 TA ti PU 40 0- 5- 00 00 L ve RI 04 20 20 92 CA NO 21 17 17 07 RE L 1 09 30 PH 0 AR MG MA CY TA BL #5 ET LA 55 04 04 30 30 00 TO NS 11 -0 -2 .0 00 TA ti OP 10 3- 8- 00 00 L ve RA 39 20 20 94 CA ZO 90 17 17 37 RE LE [address] AR MA 30 CY MG #5 CA PS UL E LE 16 03 04 15 30 00 TO VE 71 -2 -2 0. 00 TA ti TI 40 8- 1- 00 00 L ve RA 35 20 20 0 94 CA CE 50 17 17 24 RE TA 1 85 M PH 50 AR 0 MA MG CY TA #5 BL ET AZ 59 03 04 67 5 00 TO Ac IT 76 -2 -1 .5 00 TA ti HR 23 4- 4- 00 00 L ve OM 13 20 20 94 CA YC 00 17 17 56 RE IN 1 33 PH 20 AR 0 MA MG CY /5 #5 ML JANE SP ME 00 03 04 12 30 00 TO Ac TO 09 -2 -1 0. 00 TA ti CL 32 4- 4- 00 00 L ve OP 20 20 20 0 94 CA RA 40 17 17 56 RE MS 5 32 DE PH 5 AR MA MG CY TA #5 BL ET NE 00 03 04 28 28 00 TO Ac XI 57 -2 -1 .0 00 TA ti UM 32 4- 4- 00 00 L ve 45 20 20 94 CA 24 02 17 17 56 RE HR 8 31 PH 22 AR .3 MA CY MG #5 CA PS UL E MN 00 03 04 12 6 00 TO OM 60 -2 -1 0. 00 TA ti ET 31 1- 4- 00 00 L ve MINAYA 58 20 20 0 94 CA ZI 65 17 17 52 RE NE 8 58 -D PH M AR SY MA RU CY P #5 AT 60 03 04 30 30 00 TO Ac OR 50 -1 -0 .0 00 TA ti VA 52 7- 7- [address] 58 20 20 94 CA AT 00 17 17 18 RE IN 9 06 PH 40 AR MA MG CY TA #5 BL ET NO 51 03 03 60 30 00 TO RT 67 -1 -3 .0 00 TA ti RI 24 0- 1- 00 00 L ve PT 00 20 20 94 CA YL 30 17 17 41 RE IN 2 22 E PH HC AR L MA 50 CY MG #5 CA P LE 00 03 03 30 30 00 TO Ac VO 37 -1 -3 .0 00 TA ti TH 81 1- 1- 00 00 L ve YR 80 20 20 91 CA OX 31 17 17 20 RE IN 0 52 E PH 50 AR MA MC CY G TA #5 BL ET ME 61 03 03 30 30 00 TO Ac LO 44 -1 -3 .0 00 TA ti XI 20 0- 1- 00 00 L ve CA 12 20 20 94 CA M 61 17 17 41 RE 7. 0 23 5 PH MG AR MA TA CY BL ET #5 LA 55 03 03 30 30 00 TO Ac NS 11 -0 -3 .0 00 TA ti OP 10 7- 1- 00 00 L ve RA 39 20 20 94 CA ZO 90 17 17 37 RE LE [address] AR MA 30 CY MG #5 CA PS UL E LI 00 03 03 30 30 00 TO Ac SI 18 -0 -2 .0 00 TA ti NO 50 2- 4- 00 00 L ve MN 62 20 20 92 CA IL 01 17 17 23 RE 0 59 20 PH AR MG MA CY TA BL #5 ET AL 16 02 03 30 30 00 TO Ac LO 72 -2 -2 .0 00 TA ti PU 90 8- 4- 00 00 L ve RI 13 20 20 92 CA NO 51 17 17 07 RE L 6 09 30 PH 0 AR MG MA CY TA BL #5 ET LE 16 02 03 15 30 00 TO Ac VE 71 -2 -1 0. 00 TA ti TI 40 3- 7- 00 00 L ve RA 35 20 20 0 94 CA CE 50 17 17 24 RE TA 1 85 M PH 50 AR 0 MA MG CY TA #5 BL ET DO 49 02 03 20 10 00 TO Ac XY 88 -2 -1 .0 00 TA ti CY 40 3- 7- 00 00 L ve CL 72 20 20 94 CA IN 70 17 17 24 RE E 3 83 MO PH NO AR MA 10 CY 0 MG #5 CA P LE 00 02 03 30 30 00 TO Ac VO 37 -1 -1 .0 00 TA ti TH 81 3- 0- 00 00 L ve YR 80 20 20 91 CA OX 31 17 17 20 RE IN 0 52 E PH 50 AR MA MC CY G TA #5 BL ET AT 60 02 03 30 30 00 TO Ac OR 50 -1 -1 .0 00 TA ti VA 52 3- 0- [address] 58 20 20 92 CA AT 00 17 17 23 RE IN 9 60 PH 40 AR MA MG CY TA #5 BL ET PO 62 02 03 25 15 00 TO Ac LY 17 -1 -1 5. 00 TA ti ET 50 3- 0- 00 00 L ve HY 44 20 20 0 94 CA LE 21 17 17 14 RE NE 5 27 PH GL AR YC MA OL CY 33 #5 50 PO WD AL 16 01 02 30 30 00 TO Ac LO 71 -3 -2 .0 00 TA ti PU 40 0- 4- 00 00 L ve RI 04 20 20 92 CA NO 21 17 17 07 RE L 1 09 30 PH 0 AR MG MA CY TA BL #5 ET LI 00 02 02 30 30 00 TO Ac SI 18 -0 -2 .0 00 TA ti NO 50 1- 4- 00 00 L ve MN 62 20 20 92 CA IL 01 17 17 23 RE 0 59 20 PH AR MG MA CY TA BL #5 ET ME 29 01 02 30 30 00 TO LO 30 -2 -1 .0 00 TA ti XI 00 4- 7- 00 00 L ve CA 12 20 20 92 CA M 41 17 17 12 RE 7. 0 08 5 PH MG AR MA TA CY BL ET #5 NO 51 01 02 60 30 00 TO Ac RT 67 -2 -1 .0 00 TA ti RI 24 4- 7- 00 00 L ve PT 00 20 20 93 CA YL 30 17 17 17 RE IN 2 12 E PH HC AR L MA 50 CY MG #5 CA P LE 16 01 02 15 30 00 TO VE 71 -2 -1 0. 00 TA ti TI 40 5- 7- 00 00 L ve RA 35 20 20 0 90 CA CE 50 17 17 60 RE TA 1 94 M PH 50 AR 0 MA MG CY TA #5 BL ET ME 00 01 02 12 30 00 TO TO 09 -2 -1 0. 00 TA ti CL 32 7- 7- 00 00 L ve OP 20 20 20 0 93 CA RA 40 17 17 98 RE MS 5 85 DE PH 5 AR MA MG CY TA #5 BL ET LA 00 01 02 30 30 00 TO NS 37 -0 -1 .0 00 TA ti OP 88 9- 0- 00 00 L ve RA 03 20 20 92 CA ZO 00 17 17 12 RE LE [address] AR MA 30 CY MG #5 CA PS UL E LE 00 02 30 30 00 TO VO 37 -1 -1 .0 00 TA ti TH 81 7- 0- 00 00 L ve YR 80 20 20 91 CA OX 31 17 17 20 RE IN 0 52 E PH 50 AR MA MC CY G TA #5 BL ET NO 51 12 01 60 30 00 TO Ac RT 67 -2 -2 .0 00 TA ti RI 24 9- 0- 00 00 L ve PT 00 20 20 93 CA YL 30 16 17 17 RE IN 2 12 E PH HC AR L MA 50 CY MG #5 CA P AT 60 12 01 30 30 00 TO Ac OR 50 -2 -1 .0 00 TA ti VA 52 1- 3- [address] 58 20 20 92 CA AT 00 16 17 23 RE IN 9 60 PH 40 AR MA MG CY TA #5 BL ET LA 55 12 01 30 30 00 TO Ac NS 11 -1 -0 .0 00 TA ti OP 10 4- 9- 00 00 L ve RA 39 20 20 92 CA ZO 90 16 17 12 RE LE [address] AR MA 30 CY MG #5 CA PS UL E LE 16 02 02 11 15 30 TO 90 BR Ac VE 71 -1 -1 00 TA 60 OW ti TI 40 1- 7- .0 L 94 N ve RA 35 20 20 00 CA TY CE 50 16 16 RE D TA 1 M PH 50 AR 0 MA MG CY TA #5 BL ET PA 65 01 02 3 30 30 TO 90 SC Ac NT 86 -1 -1 0. TA 39 MINAYA ti OP 20 9- 5- 00 L 32 CK ve RA 56 20 20 0 CA ZO 09 16 16 RE BR LE 0 IA PH N SO AR D MA DR CY 40 #5 MG TA B AL 16 09 02 6 30 30 TO 89 SC Ac LO 71 -1 -1 0. TA 24 MINAYA ti PU 40 8- 2- 00 L 31 CK ve RI 04 20 20 0 CA NO 21 15 16 RE BR L 1 IA 30 PH N 0 AR MG MA CY TA BL #5 ET LI 00 01 02 3 30 30 TO 90 SC Ac SI 18 -0 -0 0. TA 23 MINAYA ti NO 50 4- 9- 00 L 58 FE ve MN 62 20 20 0 CA R IL 01 16 16 RE MS 0 CH 20 PH AE AR L MG MA G CY TA BL #5 ET AT 60 05 02 3 30 30 TO 88 SC Ac OR 50 -0 -0 0. TA 08 MINAYA ti VA 52 4- 9- 00 L [address] 58 20 20 0 CA R AT 00 15 16 RE MS IN 8 CH PH AE 40 AR L MA G MG CY TA #5 BL ET NO 51 12 02 2 60 30 TO 89 SC Ac RT 67 -0 -0 0. TA 99 MINAYA ti RI 24 9- 1- 00 L 82 CK ve PT 00 20 20 0 CA YL 30 15 16 RE BR IN 2 IA E PH N HC AR L MA 50 CY MG #5 CA P LE 16 12 01 6 15 30 TO 90 SC Ac VE 71 -2 -2 00 TA 10 MINAYA ti TI 40 1- 1- .0 L 89 FE ve RA 35 20 20 00 CA R CE 50 15 16 RE MS TA 1 CH M PH AE 50 AR L 0 MA G MG CY TA #5 BL ET PA 65 01 01 3 30 30 TO 90 SC Ac NT 86 -1 -1 0. TA 39 MINAYA ti OP 20 9- 9- 00 L 32 CK ve RA 56 20 20 0 CA ZO 09 16 16 RE BR LE 0 IA PH N SO AR D MA DR CY 40 #5 MG TA B NO 51 12 01 2 60 30 TO 89 SC Ac RT 67 -0 -0 0. TA 99 MINAYA ti RI 24 9- 5- 00 L 82 CK ve PT 00 20 20 0 CA YL 30 15 16 RE BR IN 2 IA E PH N HC AR L MA 50 CY MG #5 CA P AL 16 09 01 6 30 30 TO 89 SC Ac LO 71 -1 -0 0. TA 24 MINAYA ti PU 40 8- 4- 00 L 31 CK ve RI 04 20 20 0 CA NO 21 15 16 RE BR L 1 IA 30 PH N 0 AR MG MA CY TA BL #5 ET AT 60 05 01 3 30 30 TO 88 SC Ac OR 50 -0 -0 0. TA 08 MINAYA ti VA 52 4- 4- 00 L [address] 58 20 20 0 CA R AT 00 15 16 RE MS IN 8 CH PH AE 40 AR L MA G MG CY TA #5 BL ET LI 00 01 01 3 30 30 TO 90 SC Ac SI 59 -0 -0 0. TA 23 MINAYA ti NO 10 4- 4- 00 L 58 FE ve MN 40 20 20 0 CA R IL 81 16 16 RE MS 0 CH 20 PH AE AR L MG MA G CY TA BL #5 ET LE 00 10 01 11 30 30 TO 89 SC Ac VO 78 -2 -0 0. TA 59 MINAYA ti TH 15 7- 4- 00 L 38 FE ve YR 18 20 20 0 CA R OX 11 15 16 RE MS IN 0 CH E PH AE 50 AR L MA G MC CY G TA #5 BL ET LE 16 12 12 6 15 30 TO 90 SC Ac VE 71 -2 -2 00 TA 10 MINAYA ti TI 40 1- 1- .0 L 89 FE ve RA 35 20 20 00 CA R CE 50 15 15 RE MS TA 1 CH M PH AE 50 AR L 0 MA G MG CY TA #5 BL ET AZ 64 12 12 0 60 5 TO 90 SC Ac IT 67 -1 -1 .0 TA 04 MINAYA ti HR 90 4- 4- 00 L 19 CK ve OM 96 20 20 CA YC 10 15 15 RE BR IN 5 IA PH N 25 AR 0 MA MG CY TA #5 BL ET NO 51 12 12 2 60 30 TO 89 SC Ac RT 67 -0 -0 0. TA 99 MINAYA ti RI 24 9- 9- 00 L 82 CK ve PT 00 20 20 0 CA YL 30 15 15 RE BR IN 2 IA E PH N HC AR L MA 50 CY MG #5 CA P AM 00 12 12 0 14 7 TO 89 SC Ac OX 78 -0 -0 0. TA 98 MINAYA ti IC 12 8- 8- 00 L 44 CK ve IL 61 20 20 0 CA LI 37 15 15 RE BR N 6 IA 50 PH N 0 AR MG MA CY CA PS #5 UL E LI 16 08 11 3 30 30 TO 88 SC Ac SI 72 -1 -3 0. TA 97 MINAYA ti NO 90 9- 0- 00 L 33 FE ve MN 19 20 20 0 CA R IL 71 15 15 RE MS 7 CH 20 PH AE AR L MG MA G CY TA BL #5 ET LE 00 10 11 11 30 30 TO 89 SC Ac VO 78 -2 -3 0. TA 59 MINAYA ti TH 15 7- 0- 00 L 38 FE ve YR 18 20 20 0 CA R OX 11 15 15 RE MS IN 0 CH E PH AE 50 AR L MA G MC CY G TA #5 BL ET AT 60 05 11 3 30 30 TO 88 SC Ac OR 50 -0 -3 0. TA 08 MINAYA ti VA 52 4- 0- 00 L [address] 58 20 20 0 CA R AT 00 15 15 RE MS IN 8 CH PH AE 40 AR L MA G MG CY TA #5 BL ET PA 47 07 11 3 30 30 TO 88 SC Ac NT 33 -2 -3 0. TA 71 MINAYA ti OP 50 0- 0- 00 L 17 CK ve RA 58 20 20 0 CA ZO 08 15 15 RE BR LE 1 IA PH N SO AR D MA DR CY 40 #5 MG TA B AL 16 09 11 6 30 30 TO 89 SC Ac LO 71 -1 -3 0. TA 24 MINAYA ti PU 40 8- 0- 00 L 31 CK ve RI 04 20 20 0 CA NO 21 15 15 RE BR L 1 IA 30 PH N 0 AR MG MA CY TA BL #5 ET LE 31 05 11 6 15 30 TO 88 SC Ac VE 72 -0 -1 00 TA 09 MINAYA ti TI 20 5- 6- .0 L 84 FE ve RA 53 20 20 00 CA R CE 71 15 15 RE MS TA 2 CH M PH AE 50 AR L 0 MA G MG CY TA #5 BL ET NO 51 09 11 2 60 30 TO 89 SC Ac RT 67 -0 -0 0. TA 14 MINAYA ti RI 24 8- 9- 00 L 26 CK ve PT 00 20 20 0 CA YL 30 15 15 RE BR IN 2 IA E PH N HC AR L MA 50 CY MG #5 CA P ME 68 11 11 2 30 30 TO 89 SC Ac LO 38 -0 -0 0. TA 64 MINAYA ti XI 20 2- 2- 00 L 74 CK ve CA 05 20 20 0 CA M 10 15 15 RE BR 15 5 IA PH N MG AR MA TA CY BL ET #5 AL 16 09 11 6 30 30 TO 89 SC Ac LO 71 -1 -0 0. TA 24 MINAYA ti PU 40 8- 2- 00 L 31 CK ve RI 04 20 20 0 CA NO 21 15 15 RE BR L 1 IA 30 PH N 0 AR MG MA CY TA BL #5 ET LI 16 08 11 3 30 30 TO 88 SC Ac SI 72 -1 -0 0. TA 97 MINAYA ti NO 90 9- 2- 00 L 33 FE ve MN 19 20 20 0 CA R IL 71 15 15 RE MS 7 CH 20 PH AE AR L MG MA G CY TA BL #5 ET PA 66 07 10 3 30 30 TO 88 SC Ac NT 99 -2 -2 0. TA 71 MINAYA ti OP 30 0- 7- 00 L 17 CK ve RA 06 20 20 0 CA ZO 88 15 15 RE BR LE 5 IA PH N SO AR D MA DR CY 40 #5 MG TA B AT 60 05 10 3 30 30 TO 88 SC Ac OR 50 -0 -2 0. TA 08 MINAYA ti VA 52 4- 7- 00 L [address] 58 20 20 0 CA R AT 00 15 15 RE MS IN 8 CH PH AE 40 AR L MA G MG CY TA #5 BL ET LE 00 10 10 11 30 30 TO 89 SC Ac VO 37 -2 -2 0. TA 59 MINAYA ti TH 81 7- 7- 00 L 38 FE ve YR 80 20 20 0 CA R OX 30 15 15 RE MS IN 1 CH E PH AE 50 AR L MA G MC CY G TA #5 BL ET LE 68 05 10 6 15 30 TO 88 SC Ac VE 00 -0 -1 00 TA 09 MINAYA ti TI 10 5- 2- .0 L 84 FE ve RA 11 20 20 00 CA R CE 70 15 15 RE MS TA 3 CH M PH AE 50 AR L 0 MA G MG CY TA #5 BL ET NO 51 09 10 2 60 30 TO 89 SC Ac RT 67 -0 -0 0. TA 14 MINAYA ti RI 24 8- 5- 00 L 26 CK ve PT 00 20 20 0 CA YL 30 15 15 RE BR IN 2 IA E PH N HC AR L MA 50 CY MG #5 CA P ME 68 07 09 2 30 30 TO 88 SC Ac LO 38 -2 -2 0. TA 71 MINAYA ti XI 20 0- 9- 00 L 36 CK ve CA 05 20 20 0 CA M 10 15 15 RE BR 15 5 IA PH N MG AR MA TA CY BL ET #5 PO 24 09 09 0 10 32 TO 89 SC Ac LY 20 -1 -1 0. TA 24 MINAYA ti MY 80 8- 8- 00 L 30 CK ve XI 31 20 20 0 CA N 51 15 15 RE BR B- 0 IA TM PH N P AR EY MA E CY DR OP #5 S AL 00 09 09 6 30 30 TO 89 SC Ac LO 37 -1 -1 0. TA 24 MINAYA ti PU 80 8- 8- 00 L 31 CK ve RI 18 20 20 0 CA NO 10 15 15 RE BR L 5 IA 30 PH N 0 AR MG MA CY TA BL #5 ET LI 16 08 09 3 30 30 TO 88 SC Ac SI 72 -1 -1 0. TA 97 MINAYA ti NO 90 9- 7- 00 L 33 FE ve MN 19 20 20 0 CA R IL 71 15 15 RE MS 7 CH 20 PH AE AR L MG MA G CY TA BL #5 ET LE 68 05 09 6 15 30 TO 88 SC Ac VE 00 -0 -1 00 TA 09 MINAYA ti TI 10 5- 1- .0 L 84 FE ve RA 11 20 20 00 CA R CE 70 15 15 RE MS TA 3 CH M PH AE 50 AR L 0 MA G MG CY TA #5 BL ET PA 66 07 09 3 30 30 TO 88 SC Ac NT 99 -2 -1 0. TA 71 MINAYA ti OP 30 0- 1- 00 L 17 CK ve RA 06 20 20 0 CA ZO 88 15 15 RE BR LE 5 IA PH N SO AR D MA DR CY 40 #5 MG TA B AT 60 05 09 3 30 30 TO 88 SC Ac OR 50 -0 -1 0. TA 08 MINAYA ti VA 52 4- 1- 00 L [address] 58 20 20 0 CA R AT 00 15 15 RE MS IN 8 CH PH AE 40 AR L MA G MG CY TA #5 BL ET LE 00 12 09 11 30 30 TO 86 SC Ac VO 37 -0 -1 0. TA 73 MINAYA ti TH 81 2- 1- 00 L 82 FE ve YR 80 20 20 0 CA R OX 30 14 15 RE MS IN 1 CH E PH AE 50 AR L MA G MC CY G TA #5 BL ET NO 51 09 09 2 60 30 TO 89 SC Ac RT 67 -0 -0 0. TA 14 MINAYA ti RI 24 8- 8- 00 L 26 CK ve PT 00 20 20 0 CA YL 30 15 15 RE BR IN 2 IA E PH N HC AR L MA 50 CY MG #5 CA P LI 16 08 08 3 30 30 TO 88 SC Ac SI 72 -1 -1 0. TA 97 MINAYA ti NO 90 9- 9- 00 L 33 FE ve MN 19 20 20 0 CA R IL 71 15 15 RE MS 7 CH 20 PH AE AR L MG MA G CY TA BL #5 ET AL 00 06 08 11 30 30 TO 88 SC Ac LO 37 -1 -1 0. TA 42 MINAYA ti PU 80 2- 9- 00 L 15 FE ve RI 18 20 20 0 CA R NO 10 15 15 RE MS L 5 CH 30 PH AE 0 AR L MG MA G CY TA BL #5 ET ME 68 07 08 2 30 30 TO 88 SC Ac LO 38 -2 -1 0. TA 71 MINAYA ti XI 20 0- 9- 00 L 36 CK ve CA 05 20 20 0 CA M 10 15 15 RE BR 15 5 IA PH N MG AR MA TA CY BL ET #5 AT 55 05 08 3 30 30 TO 88 SC Ac OR 11 -0 -1 0. TA 08 MINAYA ti VA 10 4- 0- 00 L [address] 12 20 20 0 CA R AT 30 15 15 RE MS IN 5 CH PH AE 40 AR L MA G MG CY TA #5 BL ET LE 68 05 08 6 15 30 TO 88 SC Ac VE 00 -0 -0 00 TA 09 MINAYA ti TI 10 5- 7- .0 L 84 FE ve RA 11 20 20 00 CA R CE 70 15 15 RE MS TA 3 CH M PH AE 50 AR L 0 MA G MG CY TA #5 BL ET NO 00 06 08 2 60 30 TO 88 SC Ac RT 59 -0 -0 0. TA 37 MINAYA ti RI 15 8- 5- 00 L 38 CK ve PT 78 20 20 0 CA YL 80 15 15 RE BR IN 5 IA E PH N HC AR L MA 50 CY MG #5 CA P LE 00 12 07 11 30 30 TO 86 SC Ac VO 78 -0 -3 0. TA 73 MINAYA ti TH 15 2- 0- 00 L 82 FE ve YR 18 20 20 0 CA R OX 11 14 15 RE MS IN 0 CH E PH AE 50 AR L MA G MC CY G TA #5 BL ET PA 66 07 07 3 30 30 TO 88 SC Ac NT 99 -2 -2 0. TA 71 MINAYA ti OP 30 0- 7- 00 L 17 CK ve RA 06 20 20 0 CA ZO 88 15 15 RE BR LE 5 IA PH N SO AR D MA DR CY 40 #5 MG TA B LI 31 04 07 2 30 30 TO 88 SC Ac SI 72 -2 -2 0. TA 03 MINAYA ti NO 20 8- 0- 00 L 31 FE ve MN 42 20 20 0 CA R IL 00 15 15 RE MS 1 CH 20 PH AE AR L MG MA G CY TA BL #5 ET ME 68 07 07 2 30 30 TO 88 SC Ac LO 38 -2 -2 0. TA 71 MINAYA ti XI 20 0- 0- 00 L 36 CK ve CA 05 20 20 0 CA M 10 15 15 RE BR 15 5 IA PH N MG AR MA TA CY BL ET #5 AL 00 06 07 11 30 30 TO 88 SC Ac LO 59 -1 -2 0. TA 42 MINAYA ti PU 15 2- 0- 00 L 15 FE ve RI 54 20 20 0 CA R NO 40 15 15 RE MS L 5 CH 30 PH AE 0 AR L MG MA G CY TA BL #5 ET LE 68 05 07 6 15 30 TO 88 SC Ac VE 00 -0 -0 00 TA 09 MINAYA ti TI 10 5- 9- .0 L 84 FE ve RA 11 20 20 00 CA R CE 70 15 15 RE MS TA 3 CH M PH AE 50 AR L 0 MA G MG CY TA #5 BL ET NO 00 06 07 2 60 30 TO 88 SC Ac RT 59 -0 -0 0. TA 37 MINAYA ti RI 15 8- 7- 00 L 38 CK ve PT 78 20 20 0 CA YL 80 15 15 RE BR IN 5 IA E PH N HC AR L MA 50 CY MG #5 CA P LE 00 12 07 11 30 30 TO 86 SC Ac VO 78 -0 -0 0. TA 73 MINAYA ti TH 15 2- 3- 00 L 82 FE ve YR 18 20 20 0 CA R OX 11 14 15 RE MS IN 0 CH E PH AE 50 AR L MA G MC CY G TA #5 BL ET AT 55 05 07 3 30 30 TO 88 SC Ac OR 11 -0 -0 0. TA 08 MINAYA ti VA 10 4- 3- 00 L [address] 12 20 20 0 CA R AT 30 15 15 RE MS IN 5 CH PH AE 40 AR L MA G MG CY TA #5 BL ET PA 66 05 06 3 30 30 TO 88 SC Ac NT 99 -2 -2 0. TA 25 HI ti OP 30 2- 9- 00 L 99 ER ve RA 06 20 20 0 CA BE ZO 88 15 15 RE RG LE 5 PH KR SO AR IS D MA TI DR CY L 40 #5 MG TA B AL 00 06 06 11 30 30 TO 88 SC Ac LO 59 -1 -1 0. TA 42 MINAYA ti PU 15 2- 2- 00 L 15 FE ve RI 54 20 20 0 CA R NO 40 15 15 RE MS L 5 CH 30 PH AE 0 AR L MG MA G CY TA BL #5 ET NO 00 06 06 2 60 30 TO 88 SC Ac RT 59 -0 -0 0. TA 37 MINAYA ti RI 15 8- 8- 00 L 38 CK ve PT 78 20 20 0 CA YL 80 15 15 RE BR IN 5 IA E PH N HC AR L MA 50 CY MG #5 CA P LI 16 04 06 2 30 30 TO 88 SC Ac SI 72 -2 -0 0. TA 03 MINAYA ti NO 90 8- 8- 00 L 31 FE ve MN 19 20 20 0 CA R IL 71 15 15 RE MS 7 CH 20 PH AE AR L MG MA G CY TA BL #5 ET LE 68 05 06 6 15 30 TO 88 SC Ac VE 00 -0 -0 00 TA 09 MINAYA ti TI 10 5- 5- .0 L 84 FE ve RA 11 20 20 00 CA R CE 70 15 15 RE MS TA 3 CH M PH AE 50 AR L 0 MA G MG CY TA #5 BL ET LE 00 12 05 11 30 30 TO 86 SC Ac VO 78 -0 -2 0. TA 73 MINAYA ti TH 15 2- 7- 00 L 82 FE ve YR 18 20 20 0 CA R OX 11 14 15 RE MS IN 0 CH E PH AE 50 AR L MA G MC CY G TA #5 BL ET AT 55 05 05 3 30 30 TO 88 SC Ac OR 11 -0 -2 0. TA 08 MINAYA ti VA 10 4- 7- 00 L [address] 12 20 20 0 CA R AT 30 15 15 RE MS IN 5 CH PH AE 40 AR L MA G MG CY TA #5 BL ET PA 62 05 05 3 30 30 TO 88 SC Ac NT 17 -2 -2 0. TA 25 HI ti OP 50 2- 2- 00 L 99 ER ve RA 18 20 20 0 CA BE ZO 14 15 15 RE RG LE 6 PH KR SO AR IS D MA TI DR CY L 40 #5 MG TA B AM 65 05 05 0 20 10 TO 88 KE Ac OX 86 -1 -1 0. TA 22 MP ti -C 20 9- 9- 00 L 04 IN ve LA 50 20 20 0 CA ER V 30 15 15 RE S 87 1 JA 5- PH ME 12 AR S 5 MA J MG CY TA #5 BL ET LE 68 05 05 6 15 30 TO 88 SC Ac VE 00 -0 -0 00 TA 09 MINAYA ti TI 10 5- 5- .0 L 84 FE ve RA 11 20 20 00 CA R CE 70 15 15 RE MS TA 3 CH M PH AE 50 AR L 0 MA G MG CY TA #5 BL ET NO 00 03 05 2 60 30 TO 87 SC Ac RT 59 -0 -0 0. TA 56 MINAYA ti RI 15 4- 4- 00 L 49 FE ve PT 78 20 20 0 CA R YL 80 15 15 RE MS IN 5 CH E PH AE HC AR L L MA G 50 CY MG #5 CA P AT 55 04 04 3 30 30 TO 88 SC Ac OR 11 -3 -3 0. TA 05 MINAYA ti VA 10 0- 0- 00 L [address] 12 20 20 0 CA R AT 30 15 15 RE MS IN 5 CH PH AE 40 AR L MA G MG CY TA #5 BL ET AL 00 06 04 11 30 30 TO 85 SC Ac LO 59 -0 -3 0. TA 28 MINAYA ti PU 15 2- 0- 00 L 63 FE ve RI 54 20 20 0 CA R NO 40 14 15 RE MS L 5 CH 30 PH AE 0 AR L MG MA G CY TA BL #5 ET LI 68 04 04 2 30 30 TO 88 SC Ac SI 00 -2 -2 0. TA 03 MINAYA ti NO 10 8- 8- 00 L 31 FE ve MN 20 20 20 0 CA R IL 80 15 15 RE MS 8 CH 20 PH AE AR L MG MA G CY TA BL #5 ET LE 00 12 04 11 30 30 TO 86 SC Ac VO 78 -0 -1 0. TA 73 MINAYA ti TH 15 2- 6- 00 L 82 FE ve YR 18 20 20 0 CA R OX 11 14 15 RE MS IN 0 CH E PH AE 50 AR L MA G MC CY G TA #5 BL ET LE 68 04 04 6 15 30 TO 84 SC Ac VE 00 -2 -0 00 TA 95 MINAYA ti TI 10 1- 6- .0 L 14 FE ve RA 11 20 20 00 CA R CE 70 14 15 RE MS TA 3 CH M PH AE 50 AR L 0 MA G MG CY TA #5 BL ET NO 00 03 04 2 60 30 TO 87 SC Ac RT 59 -0 -0 0. TA 56 MINAYA ti RI 15 4- 6- 00 L 49 FE ve PT 78 20 20 0 CA R YL 80 15 15 RE MS IN 5 CH E PH AE HC AR L L MA G 50 CY MG #5 CA P AL 00 06 03 11 30 30 TO 85 SC Ac LO 59 -0 -2 0. TA 28 MINAYA ti PU 15 2- 7- 00 L 63 FE ve RI 54 20 20 0 CA R NO 40 14 15 RE MS L 5 CH 30 PH AE 0 AR L MG MA G CY TA BL #5 ET AT 55 04 03 3 30 30 TO 84 SC Ac OR 11 -0 -2 0. TA 80 MINAYA ti VA 10 2- 7- 00 L [address] 12 20 20 0 CA R AT 30 14 15 RE MS IN 5 CH PH AE 40 AR L MA G MG CY TA #5 BL ET LI 68 12 03 2 30 30 TO 87 SC Ac SI 00 -3 -2 0. TA 02 MINAYA ti NO 10 1- 5- 00 L 65 FE ve [place] 20 20 20 0 CA R IL 80 14 15 RE MS 8 CH 20 PH AE AR L MG MA G CY TA BL #5 ET NO 00 03 03 2 60 30 TO 87 SC Ac RT 59 -0 -0 0. TA 56 MINAYA ti RI 15 4- 4- 00 L 49 FE ve PT 78 20 20 0 CA R YL 80 15 15 RE MS IN 5 CH E PH AE HC AR L L MA G 50 CY MG #5 CA P ON 45 03 03 0 30 10 TO 87 SC Ac DA 96 -0 -0 0. TA 56 MINAYA ti NS 30 4- 4- 00 L 62 CK ve ET 53 20 20 0 CA RO 93 15 15 RE BR N 0 IA HC PH N L AR 8 MA MG CY TA #5 BL ET LE 68 04 03 6 15 30 TO 84 SC Ac VE 00 -2 -0 00 TA 95 MINAYA ti TI 10 1- 4- .0 L 14 FE ve RA 11 20 20 00 CA R CE 70 14 15 RE MS TA 3 CH M PH AE 50 AR L 0 MA G MG CY TA #5 BL ET LI 68 12 02 2 30 30 TO 87 SC Ac SI 00 -3 -2 0. TA 02 MINAYA ti NO 10 1- 1- 00 L 65 FE ve MN 20 20 20 0 CA R IL 80 14 15 RE MS 8 CH 20 PH AE AR L MG MA G CY TA BL #5 ET AL 00 06 02 11 30 30 TO 85 SC Ac LO 59 -0 -2 0. TA 28 MINAYA ti PU 15 2- 1- 00 L 63 FE ve RI 54 20 20 0 CA R NO 40 14 15 RE MS L 5 CH 30 PH AE 0 AR L MG MA G CY TA BL #5 ET AT 55 04 02 3 30 30 TO 84 SC Ac OR 11 -0 -1 0. TA 80 MINAYA ti VA 10 2- 9- 00 L [address] 12 20 20 0 CA R AT 30 14 15 RE MS IN 5 CH PH AE 40 AR L MA G MG CY TA #5 BL ET LE 00 12 02 11 30 30 TO 86 SC Ac VO 78 -0 -1 0. TA 73 MINAYA ti TH 15 2- 7- 00 L 82 FE ve YR 18 20 20 0 CA R OX 19 14 15 RE MS IN 2 CH E PH AE 50 AR L MA G MC CY G TA #5 BL ET LE 68 04 01 6 15 30 TO 84 SC Ac VE 00 -2 -2 00 TA 95 MINAYA ti TI 10 1- 9- .0 L 14 FE ve RA 11 20 20 00 CA R CE 70 14 15 RE MS TA 3 CH M PH AE 50 AR L 0 MA G MG CY TA #5 BL ET NO 00 06 01 2 60 30 TO 85 SC Ac RT 59 -0 -2 0. TA 28 MINAYA ti RI 15 2- 9- 00 L 65 FE ve PT 78 20 20 0 CA R YL 80 14 15 RE MS IN 5 CH E PH AE HC AR L L MA G 50 CY MG #5 CA P ON 45 12 01 0 30 10 TO 87 SC Ac DA 96 -3 -2 0. TA 03 MINAYA ti NS 30 1- 8- 00 L 02 CK ve ET 53 20 20 0 CA RO 93 14 15 RE BR N 0 IA HC PH N L AR 8 MA MG CY TA #5 BL ET LI 31 12 12 2 30 30 TO 87 SC Ac SI 72 -3 -3 0. TA 02 MINAYA ti NO 20 1- 1- 00 L 65 FE ve MN 42 20 20 0 CA R IL 01 14 14 RE MS 0 CH 20 PH AE AR L MG MA G CY TA BL #5 ET AL 00 06 12 11 30 30 TO 85 SC Ac LO 59 -0 -3 0. TA 28 MINAYA ti PU 15 2- 0- 00 L 63 FE ve RI 54 20 20 0 CA R NO 40 14 14 RE MS L 5 CH 30 PH AE 0 AR L MG MA G CY TA BL #5 ET ON 45 12 12 0 15 5 TO 86 SC Ac DA 96 -0 -3 0. TA 81 MINAYA ti NS 30 9- 0- 00 L 53 CK ve ET 53 20 20 0 CA RO 93 14 14 RE BR N 0 IA HC PH N L AR 8 MA MG CY TA #5 BL ET LE 68 04 12 6 15 30 TO 84 SC Ac VE 00 -2 -3 00 TA 95 MINAYA ti TI 10 1- 0- .0 L 14 FE ve RA 11 20 20 00 CA R CE 70 14 14 RE MS TA 3 CH M PH AE 50 AR L 0 MA G MG CY TA #5 BL ET AT 60 04 12 3 30 30 TO 84 SC Ac OR 50 -0 -3 0. TA 80 MINAYA ti VA 52 2- 0- 00 L [address] 58 20 20 0 CA R AT 00 14 14 RE MS IN 8 CH PH AE 40 AR L MA G MG CY TA #5 BL ET NO 00 06 12 2 60 30 TO 85 SC Ac RT 59 -0 -3 0. TA 28 MINAYA ti RI 15 2- 0- 00 L 65 FE ve PT 78 20 20 0 CA R YL 80 14 14 RE MS IN 5 CH E PH AE HC AR L L MA G 50 CY MG #5 CA P LE 00 12 12 11 30 30 TO 86 SC Ac VO 78 -0 -3 0. TA 73 MINAYA ti TH 15 2- 0- 00 L 82 FE ve YR 18 20 20 0 CA R OX 19 14 14 RE MS IN 2 CH E PH AE 50 AR L MA G MC CY G TA #5 BL ET LE 00 12 12 11 30 30 TO 86 SC Ac VO 78 -0 -0 0. TA 73 MINAYA ti TH 15 2- 2- 00 L 82 FE ve YR 18 20 20 0 CA R OX 11 14 14 RE MS IN 0 CH E PH AE 50 AR L MA G MC CY G TA #5 BL ET ON 45 12 12 0 30 10 TO 86 SC Ac DA 96 -0 -0 0. TA 74 MINAYA ti NS 30 2- 2- 00 L 00 CK ve ET 53 20 20 0 CA RO 93 14 14 RE BR N 0 IA HC PH N L AR 8 MA MG CY TA #5 BL ET AT 60 04 12 3 30 30 TO 84 SC Ac OR 50 -0 -0 0. TA 80 MINAYA ti VA 52 2- 2- 00 L [address] 58 20 20 0 CA R AT 00 14 14 RE MS IN 8 CH PH AE 40 AR L MA G MG CY TA #5 BL ET LI 00 05 12 2 30 30 TO 85 SC Ac SI 18 -0 -0 0. TA 04 MINAYA ti NO 50 1- 2- 00 L 71 FE ve MN 10 20 20 0 CA R IL 21 14 14 RE MS 0 CH 20 PH AE AR L MG MA G CY TA BL #5 ET AL 51 10 12 0 30 30 TO 86 JI Ac LO 07 -2 -0 0. TA 38 BR ti PU 90 2- 2- 00 L 12 IN ve RI 20 20 20 0 CA I NO 62 14 14 RE MH L 0 AM 30 PH AD 0 AR B MG MA CY TA BL #5 ET NO 00 10 11 0 60 30 TO 86 JI Ac RT 59 -2 -2 0. TA 38 BR ti RI 15 2- 2- 00 L 26 IN ve PT 78 20 20 0 CA I YL 80 14 14 RE MH IN 5 AM E PH AD HC AR B L MA 50 CY MG #5 CA P ON 45 11 11 0 30 10 TO 86 SC Ac DA 96 -1 -1 0. TA 60 MINAYA ti NS 30 4- 9- 00 L 16 CK ve ET 53 20 20 0 CA RO 93 14 14 RE BR N 0 IA HC PH N L AR 8 MA MG CY TA #5 BL ET ON 45 11 11 0 15 5 TO 86 SC Ac DA 96 -1 -1 0. TA 59 MINAYA ti NS 30 4- 4- 00 L 95 CK ve ET 53 20 20 0 CA RO 93 14 14 RE BR N 0 IA HC PH N L AR 8 MA MG CY TA #5 BL ET OX 00 10 10 0 60 15 TO 86 SC Ac YC 40 -2 -2 0. TA 43 MINAYA ti OD 60 8- 8- 00 L 93 CK ve ON 51 20 20 0 CA E- 20 14 14 RE BR AC 5 IA ET PH N AM AR IN MA OP CY HE N #5 5- 32 5 LE 16 10 10 0 75 30 TO 86 JI Ac VE 72 -2 -2 0. TA 38 BR ti TI 90 2- 2- 00 L 23 IN ve RA 06 20 20 0 CA I CE 71 14 14 RE MH TA 2 AM M PH AD 1, AR B 00 MA 0 CY MG #5 TA BL ET ON 45 10 10 0 15 5 TO 86 JI Ac DA 96 -2 -2 0. TA 38 BR ti NS 30 2- 2- 00 L 16 IN ve ET 53 20 20 0 CA I RO 93 14 14 RE MH N 0 AM HC PH AD L AR B 8 MA MG CY TA #5 BL ET AL 00 09 10 5 30 30 HO 84 JI Ac LO 37 -1 -2 0. ME 79 BR ti PU 80 6- 0- 00 19 IN ve RI 18 20 20 0 CA 8 I NO 10 14 14 RE MH L 5 AM 30 PH AD 0 AR B MG MA CY TA BL ET NO 00 09 10 5 60 30 HO 84 JI Ac RT 09 -1 -2 0. ME 79 BR ti RI 30 6- 0- 00 21 IN ve PT 81 20 20 0 CA 0 I YL 20 14 14 RE MH IN 5 AM E PH AD HC AR B L MA 50 CY MG CA P LE 00 09 10 5 30 30 HO 84 JI Ac VO 37 -1 -2 0. ME 79 BR ti TH 81 6- 0- 00 20 IN ve YR 80 20 20 0 CA 5 I OX 91 14 14 RE MH IN 0 AM E PH AD 10 AR B 0 MA MC CY G TA BL ET CE 00 10 10 5 30 2 HO 85 JI Ac FA 33 -0 -2 00 ME 34 BR ti ZO 83 6- 0- .0 94 IN ve LI 50 20 20 00 CA 1 I N 34 14 14 RE MH 1 1 AM G/ PH AD 50 AR B MA ML CY -D EX TR OS E LE 13 09 10 5 60 30 HO 84 JI Ac VE 66 -1 -2 0. ME 79 BR ti TI 80 6- 0- 00 20 IN ve RA 01 20 20 0 CA 3 I CE 76 14 14 RE MH TA 0 AM M PH AD 1, AR B 00 MA 0 CY MG TA BL ET 00 09 10 5 30 30 HO 84 JI Ac PI 90 -1 -1 0. ME 79 BR ti RI 44 6- 9- 00 19 IN ve N 04 20 20 0 CA 9 I 81 07 14 14 RE MH 3 AM MG PH AD AR B CH MA EW CY AB LE TA BL ET FU 00 09 10 5 30 30 HO 84 JI Ac RO 17 -1 -1 0. ME 79 BR ti SE 22 6- 7- 00 21 IN ve MS 90 20 20 0 CA 1 I DE 88 14 14 RE MH 0 AM 20 PH AD AR B MG MA CY TA BL ET CE 00 10 10 5 12 4 HO 85 JI Ac FA 33 -0 -1 00 ME 34 BR ti ZO 83 6- 6- 0. 94 IN ve LI 50 20 20 00 CA 1 I N 34 14 14 0 RE MH 1 1 AM G/ PH AD 50 AR B MA ML CY -D EX TR OS E AT 00 09 10 5 30 30 HO 84 JI Ac OR 37 -1 -1 0. ME 79 BR ti VA 83 6- 6- [address] 95 20 20 0 CA 0 I AT 20 14 14 RE MH IN 5 AM PH AD 40 AR B MA MG CY TA BL ET CE 00 10 10 5 90 3 HO 85 JI Ac FA 33 -0 -1 00 ME 34 BR ti ZO 83 6- 3- .0 94 IN ve LI 50 20 20 00 CA 1 I N 34 14 14 RE MH 1 1 AM G/ PH AD 50 AR B MA ML CY -D EX TR OS E FE 00 10 10 0 20 6 HO 85 JI Ac NT 37 -1 -1 .0 ME 56 BR ti AN 89 3- 3- 00 19 IN ve YL 12 20 20 CA 1 I 39 14 14 RE MH 75 8 AM PH AD MC AR B G/ MA HR CY PA TC H 0 09 10 5 24 12 HO 84 JI Ac -1 -1 00 ME 79 BR ti 6- 1- .0 29 IN ve 20 20 00 CA 2 I 14 14 RE MH AM PH AD AR B MA CY CE 00 10 10 5 12 4 HO 85 JI Ac FA 33 -0 -0 00 ME 34 BR ti ZO 83 6- 9- 0. 94 IN ve LI 50 20 20 00 CA 1 I N 34 14 14 0 RE MH 1 1 AM G/ PH AD 50 AR B MA ML CY -D EX TR OS E OX 00 10 10 0 36 3 HO 85 JI Ac YC 40 -0 -0 0. ME 35 BR ti OD 60 6- 6- 00 85 IN ve ON 51 20 20 0 CA 7 I E- 20 14 14 RE MH AC 5 AM ET PH AD AM AR B IN MA OP CY HE N 5- 32 5 FE 00 10 10 0 10 3 HO 85 JI Ac NT 37 -0 -0 .0 ME 35 BR ti AN 89 6- 6- 00 57 IN ve YL 12 20 20 CA 1 I 39 14 14 RE MH 75 8 AM PH AD MC AR B G/ MA HR CY PA TC H CE 00 10 10 5 90 3 HO 85 JI Ac FA 33 -0 -0 00 ME 34 BR ti ZO 83 6- 6- .0 94 IN ve LI 50 20 20 00 CA 1 I N 34 14 14 RE MH 1 1 AM G/ PH AD 50 AR B MA ML CY -D EX TR OS E ME 00 10 10 5 12 30 HO 85 JI Ac TO 09 -0 -0 00 ME 28 BR ti CL 32 3- 3- .0 23 IN ve OP 20 20 20 00 CA 6 I RA 40 14 14 RE MH MS 5 AM DE PH AD 5 AR B MA MG CY TA BL ET CE 00 09 10 5 12 4 HO 84 JI Ac FA 33 -1 -0 00 ME 79 BR ti ZO 83 6- 2- 0. 30 IN ve LI 50 20 20 00 CA 0 I N 34 14 14 0 RE MH 1 1 AM G/ PH AD 50 AR B MA ML CY -D EX TR OS E ME 57 10 10 5 60 30 HO 85 JI Ac TO 66 -0 -0 0. ME 22 BR ti MN 40 1- 1- 00 74 IN ve OL 47 20 20 0 CA 0 I OL 75 14 14 RE MH 8 AM TA PH AD RT AR B RA MA TE CY 50 MG TA B CE 00 09 09 5 90 3 HO 84 JI Ac FA 33 -1 -2 00 ME 79 BR ti ZO 83 6- 9- .0 30 IN ve LI 50 20 20 00 CA 0 I N 34 14 14 RE MH 1 1 AM G/ PH AD 50 AR B MA ML CY -D EX TR OS E FE 00 09 09 0 10 3 HO 85 JI Ac NT 37 -2 -2 .0 ME 12 BR ti AN 89 7- 7- 00 06 IN ve YL 12 20 20 CA 9 I 39 14 14 RE MH 75 8 AM PH AD MC AR B G/ MA HR CY PA TC H FE 00 09 09 0 50 15 HO 85 JI Ac NT 37 -2 -2 .0 ME 05 BR ti AN 89 5- 5- 00 32 IN ve YL 12 20 20 CA 1 I 19 14 14 RE MH 25 8 AM PH AD MC AR B G/ MA HR CY PA TC H CE 00 09 09 5 12 4 HO 84 JI Ac FA 33 -1 -2 00 ME 79 BR ti ZO 83 6- 5- 0. 30 IN ve LI 50 20 20 00 CA 0 I N 34 14 14 0 RE MH 1 1 AM G/ PH AD 50 AR B MA ML CY -D EX TR OS E OM 00 09 09 5 30 30 HO 85 JI Ac EP 78 -2 -2 0. ME 03 BR ti RA 12 4- 4- 00 49 IN ve ZO 23 20 20 0 CA 2 I LE 31 14 14 RE MH [address] PH AD AR B 20 MA CY MG CA PS UL E CE 00 09 09 5 90 3 HO 84 JI Ac FA 33 -1 -2 00 ME 79 BR ti ZO 83 6- 2- .0 30 IN ve LI 50 20 20 00 CA 0 I N 34 14 14 RE MH 1 1 AM G/ PH AD 50 AR B MA ML CY -D EX TR OS E CE 00 09 09 5 12 4 HO 84 JI Ac FA 33 -1 -1 00 ME 79 BR ti ZO 83 6- 8- 0. 30 IN ve LI 50 20 20 00 CA 0 I N 34 14 14 0 RE MH 1 1 AM G/ PH AD 50 AR B MA ML CY -D EX TR OS E FE 00 09 09 0 10 3 HO 84 JI Ac NT 37 -1 -1 .0 ME 81 BR ti AN 89 7- 7- 00 07 IN ve YL 12 20 20 CA 4 I 19 14 14 RE MH 25 8 AM PH AD MC AR B G/ MA HR CY PA TC H CE 00 09 09 5 90 3 HO 84 JI Ac FA 33 -1 -1 00 ME 79 BR ti ZO 83 6- 6- .0 30 IN ve LI 50 20 20 00 CA 0 I N 34 14 14 RE MH 1 1 AM G/ PH AD 50 AR B MA ML CY -D EX TR OS E FU 00 09 09 5 30 30 HO 84 JI Ac RO 17 -1 -1 0. ME 79 BR ti SE 22 6- 6- 00 21 IN ve MS 90 20 20 0 CA 1 I DE 88 14 14 RE MH 0 AM 20 PH AD AR B MG MA CY TA BL ET LE 13 09 09 5 60 30 HO 84 JI Ac VE 66 -1 -1 0. ME 79 BR ti TI 80 6- 6- 00 20 IN ve RA 01 20 20 0 CA 3 I CE 76 14 14 RE MH TA 0 AM M PH AD 1, AR B 00 MA 0 CY MG TA BL ET LE 00 09 09 5 30 30 HO 84 JI Ac VO 37 -1 -1 0. ME 79 BR ti TH 81 6- 6- 00 20 IN ve YR 80 20 20 0 CA 5 I OX 91 14 14 RE MH IN 0 AM E PH AD 10 AR B 0 MA MC CY G TA BL ET AT 00 09 09 5 30 30 HO 84 JI Ac OR 37 -1 -1 0. ME 79 BR ti VA 83 6- 6- [address] 95 20 20 0 CA 0 I AT 20 14 14 RE MH IN 5 AM PH AD 40 AR B MA MG CY TA BL ET 00 09 09 5 30 30 HO 84 JI Ac PI 90 -1 -1 0. ME 79 BR ti RI 44 6- 6- 00 19 IN ve N 04 20 20 0 CA 9 I 81 07 14 14 RE MH 3 AM MG PH AD AR B CH MA EW CY AB LE TA BL ET NO 00 09 09 5 60 30 HO 84 JI Ac RT 09 -1 -1 0. ME 79 BR ti RI 30 6- 6- 00 21 IN ve PT 81 20 20 0 CA 0 I YL 20 14 14 RE MH IN 5 AM E PH AD HC AR B L MA 50 CY MG CA P ON 00 09 09 5 30 10 HO 84 JI Ac DA 37 -1 -1 0. ME 79 BR ti NS 80 6- 6- 00 20 IN ve ET 34 20 20 0 CA 6 I RO 49 14 14 RE MH N 3 AM HC PH AD L AR B 8 MA MG CY TA BL ET AL 00 09 09 5 30 30 HO 84 JI Ac LO 37 -1 -1 0. ME 79 BR ti PU 80 6- 6- 00 19 IN ve RI 18 20 20 0 CA 8 I NO 10 14 14 RE MH L 5 AM 30 PH AD 0 AR B MG MA CY TA BL ET 0 09 09 5 24 12 HO 84 JI Ac -1 -1 00 ME 79 BR ti 6- 6- .0 29 IN ve 20 20 00 CA 2 I 14 14 RE MH AM PH AD AR B MA CY ME 00 09 09 5 25 13 HO 84 JI Ac TO 37 -1 -1 0. ME 79 BR ti MN 80 6- 6- 00 21 IN ve OL 01 20 20 0 CA 2 I OL 80 14 14 RE MH 5 AM TA PH AD RT AR B RA MA TE CY 25 MG TA B MN 00 09 09 5 40 1 HO 84 JI Ac OC 37 -1 -1 .0 ME 79 BR ti HL 85 6- 6- 00 20 IN ve OR 11 20 20 CA 8 I PE 00 14 14 RE MH RA 1 AM ZI PH AD NE AR B MA 10 CY MG TA B FE 00 09 09 0 50 15 HO 84 SA Ac NT 37 -0 -0 .0 ME 39 PP ti AN 89 2- 2- 00 25 ve YL 12 20 20 CA 7 CH 19 14 14 RE RI [address] PH Y MC AR M G/ MA HR CY PA TC H 0 08 08 5 24 3 HO 83 JI Ac -1 -3 00 ME 93 BR ti 8- 0- .0 87 IN ve 20 20 00 CA 2 I 14 14 RE MH AM PH AD AR B MA CY LE 00 07 08 5 90 9 HO 82 JI Ac VE 37 -1 -3 .0 ME 86 BR ti TI 85 1- 0- 00 50 IN ve RA 61 20 20 CA 5 I CE 50 14 14 RE MH TA 5 AM M PH AD 50 AR B 0 MA MG CY TA BL ET DE 49 08 08 5 20 1 HO 83 JI Ac XA 88 -0 -2 .0 ME 65 BR ti ME 40 7- 6- 00 52 IN ve TH 08 20 20 CA 9 I 70 14 14 RE MH ON 1 AM E PH AD 4 AR B MG MA CY TA BL ET 0 08 08 5 24 3 HO 83 JI Ac -1 -2 00 ME 93 BR ti 8- 5- .0 87 IN ve 20 20 00 CA 2 I 14 14 RE MH AM PH AD AR B MA CY 0 08 08 5 24 3 HO 83 JI Ac -1 -1 00 ME 93 BR ti 8- 8- .0 87 IN ve 20 20 00 CA 2 I 14 14 RE MH AM PH AD AR B MA CY OM 00 07 08 5 18 18 HO 83 JI Ac EP 78 -1 -1 0. ME 01 BR ti RA 12 7- 8- 00 31 IN ve ZO 23 20 20 0 CA 8 I LE 31 14 14 RE MH [address] PH AD AR B 20 MA CY MG CA PS UL E DE 49 08 08 5 80 2 HO 83 JI Ac XA 88 -0 -1 .0 ME 65 BR ti ME 40 7- 7- 00 52 IN ve TH 08 20 20 CA 9 I 70 14 14 RE MH ON 1 AM E PH AD 4 AR B MG MA CY TA BL ET AL 00 07 08 5 18 18 HO 82 JI Ac LO 37 -1 -1 0. ME 86 BR ti PU 80 1- 1- 00 50 IN ve RI 18 20 20 0 CA 1 I NO 10 14 14 RE MH L 5 AM 30 PH AD 0 AR B MG MA CY TA BL ET 00 07 08 5 18 18 HO 82 JI Ac PI 90 -1 -1 0. ME 86 BR ti RI 44 1- 1- 00 50 IN ve N 04 20 20 0 CA 2 I 81 07 14 14 RE MH 3 AM MG PH AD AR B CH MA EW CY AB LE TA BL ET LE 00 07 08 5 19 19 HO 82 JI Ac VO 37 -1 -1 0. ME 86 BR ti TH 81 1- 1- 00 50 IN ve YR 80 20 20 0 CA 6 I OX 91 14 14 RE MH IN 0 AM E PH AD 10 AR B 0 MA MC CY G TA BL ET LI 00 07 08 5 18 18 HO 82 JI Ac SI 18 -1 -1 0. ME 86 BR ti NO 50 1- 1- 00 50 IN ve MN 10 20 20 0 CA 7 I IL 21 14 14 RE MH 0 AM 20 PH AD AR B MG MA CY TA BL ET DE 49 08 08 5 10 3 HO 83 JI Ac XA 88 -0 -0 0. ME 65 BR ti ME 40 7- 7- 00 52 IN ve TH 08 20 20 0 CA 9 I 70 14 14 RE MH ON 1 AM E PH AD 4 AR B MG MA CY TA BL ET MN 00 08 08 5 70 2 HO 83 JI Ac OC 37 -0 -0 .0 ME 65 BR ti HL 85 7- 7- 00 53 IN ve OR 11 20 20 CA 0 I PE 00 14 14 RE MH RA 1 AM ZI PH AD NE AR B MA 10 CY MG TA B ON 00 08 08 5 23 8 HO 83 JI Ac DA 37 -0 -0 0. ME 65 BR ti NS 80 7- 7- 00 53 IN ve ET 34 20 20 0 CA 1 I RO 49 14 14 RE MH N 3 AM HC PH AD L AR B 8 MA MG CY TA BL ET NO 00 07 08 5 20 20 HO 82 JI Ac RT 09 -1 -0 0. ME 86 BR ti RI 30 1- 6- 00 50 IN ve PT 81 20 20 0 CA 0 I YL 20 14 14 RE MH IN 5 AM E PH AD HC AR B L MA 50 CY MG CA P AT 55 07 08 5 20 20 HO 82 JI Ac OR 11 -1 -0 0. ME 86 BR ti VA 10 1- 6- [address] 12 20 20 0 CA 3 I AT 30 14 14 RE MH IN 5 AM PH AD 40 AR B MA MG CY TA BL ET LE 13 07 08 5 40 20 HO 82 JI Ac VE 66 -1 -0 0. ME 86 BR ti TI 80 1- 5- 00 50 IN ve RA 01 20 20 0 CA 4 I CE 76 14 14 RE MH TA 0 AM M PH AD 1, AR B 00 MA 0 CY MG TA BL ET LO 00 07 07 5 20 2 HO 83 JI Ac VE 07 -2 -2 .0 ME 16 BR ti NO 50 2- 2- 00 33 IN ve X 62 20 20 CA 7 I 40 04 14 14 RE MH 0 AM MG PH AD /0 AR B .4 MA CY ML SY RI NG E OM 00 07 07 5 29 29 HO 83 JI Ac EP 78 -1 -1 0. ME 01 BR ti RA 12 7- 7- 00 31 IN ve ZO 23 20 20 0 CA 8 I LE 31 14 14 RE MH [address] PH AD AR B 20 MA CY MG CA PS UL E LE 00 07 07 5 30 30 HO 82 JI Ac VO 37 -1 -1 0. ME 86 BR ti TH 81 1- 1- 00 50 IN ve YR 80 20 20 0 CA 6 I OX 91 14 14 RE MH IN 0 AM E PH AD 10 AR B 0 MA MC CY G TA BL ET LE 13 07 07 5 60 30 HO 82 JI Ac VE 66 -1 -1 0. ME 86 BR ti TI 80 1- 1- 00 50 IN ve RA 01 20 20 0 CA 4 I CE 76 14 14 RE MH TA 0 AM M PH AD 1, AR B 00 MA 0 CY MG TA BL ET 00 07 07 5 30 30 HO 82 JI Ac PI 90 -1 -1 0. ME 86 BR ti RI 44 1- 1- 00 50 IN ve N 04 20 20 0 CA 2 I 81 07 14 14 RE MH 3 AM MG PH AD AR B CH MA EW CY AB LE TA BL ET AL 00 07 07 5 30 30 HO 82 JI Ac LO 37 -1 -1 0. ME 86 BR ti PU 80 1- 1- 00 50 IN ve RI 18 20 20 0 CA 1 I NO 10 14 14 RE MH L 5 AM 30 PH AD 0 AR B MG MA CY TA BL ET NO 00 07 07 5 30 30 HO 82 JI Ac RT 09 -1 -1 0. ME 86 BR ti RI 30 1- 1- 00 50 IN ve PT 81 20 20 0 CA 0 I YL 20 14 14 RE MH IN 5 AM E PH AD HC AR B L MA 50 CY MG CA P AT 00 07 07 5 30 30 HO 82 JI Ac OR 37 -1 -1 0. ME 86 BR ti VA 82 1- 1- [address] 12 20 20 0 CA 3 I AT 17 14 14 RE MH IN 7 AM PH AD 40 AR B MA MG CY TA BL ET LE 68 04 06 6 15 30 TO 84 SC Ac VE 00 -2 -2 00 TA 95 MINAYA ti TI 10 1- 6- .0 L 14 FE ve RA 11 20 20 00 CA R CE 70 14 14 RE MS TA 3 CH M PH AE 50 AR L 0 MA G MG CY TA BL ET LI 68 05 06 2 30 30 TO 85 SC Ac SI 00 -0 -2 0. TA 04 MINAYA ti NO 10 1- 6- 00 L 71 FE ve MN 20 20 20 0 CA R IL 80 14 14 RE MS 8 CH 20 PH AE AR L MG MA G CY TA BL ET AT 60 04 06 3 30 30 TO 84 SC Ac OR 50 -0 -0 0. TA 80 MINAYA ti VA 52 2- 3- 00 L [address] 58 20 20 0 CA R AT 00 14 14 RE MS IN 8 CH PH AE 40 AR L MA G MG CY TA BL ET NO 00 06 06 2 60 30 TO 85 SC Ac RT 59 -0 -0 0. TA 28 MINAYA ti RI 15 2- 2- 00 L 65 FE ve PT 78 20 20 0 CA R YL 80 14 14 RE MS IN 5 CH E PH AE HC AR L L MA G 50 CY MG CA P AL 00 06 06 11 30 30 TO 85 SC Ac LO 59 -0 -0 0. TA 28 MINAYA ti PU 15 2- 2- 00 L 63 FE ve RI 54 20 20 0 CA R NO 40 14 14 RE MS L 5 CH 30 PH AE 0 AR L MG MA G CY TA BL ET LE 68 04 05 6 15 30 TO 84 SC Ac VE 00 -2 -2 00 TA 95 MINAYA ti TI 10 1- 7- .0 L 14 FE ve RA 11 20 20 00 CA R CE 70 14 14 RE MS TA 3 CH M PH AE 50 AR L 0 MA G MG CY TA BL ET LI 68 05 05 2 30 30 TO 85 SC Ac SI 00 -0 -0 0. TA 04 MINAYA ti NO 10 1- 1- 00 L 71 FE ve MN 20 20 20 0 CA R IL 80 14 14 RE MS 8 CH 20 PH AE AR L MG MA G CY TA BL ET AT 60 04 05 3 30 30 TO 84 SC Ac OR 50 -0 -0 0. TA 80 MINAYA ti VA 52 2- 1- 00 L [address] 58 20 20 0 CA R AT 00 14 14 RE MS IN 8 CH PH AE 40 AR L MA G MG CY TA BL ET NO 00 02 05 2 60 30 TO 84 SC Ac RT 59 -1 -0 0. TA 44 MINAYA ti RI 15 8- 1- 00 L 13 FE ve PT 78 20 20 0 CA R YL 80 14 14 RE MS IN 5 CH E PH AE HC AR L L MA G 50 CY MG CA P LE 00 04 05 3 30 30 TO 84 SC Ac VO 78 -0 -0 0. TA 80 MINAYA ti TH 15 2- 1- 00 L 05 FE ve YR 18 20 20 0 CA R OX 41 14 14 RE MS IN 0 CH E PH AE 10 AR L 0 MA G MC CY G TA BL ET LE 68 04 04 6 15 30 TO 84 SC Ac VE 18 -2 -2 00 TA 95 MINAYA ti TI 00 1- 1- .0 L 14 FE ve RA 11 20 20 00 CA R CE 30 14 14 RE MS TA 2 CH M PH AE 50 AR L 0 MA G MG CY TA BL ET MN 68 02 04 3 30 30 TO 84 SC Ac AV 18 -1 -0 0. TA 44 MINAYA ti 00 8- 2- 00 L 12 FE ve TA 48 20 20 0 CA R TI 80 14 14 RE MS N 2 CH SO PH AE DI AR L UM MA G CY 80 MG TA B LI 00 07 04 2 30 30 TO 82 SC Ac SI 18 -3 -0 0. TA 93 MINAYA ti NO 50 1- 2- 00 L 25 FE ve MN 10 20 20 0 CA R IL 21 13 14 RE MS 0 CH 20 PH AE AR L MG MA G CY TA BL ET AT 60 04 04 3 30 30 TO 84 SC Ac OR 50 -0 -0 0. TA 80 MINAYA ti VA 52 2- 2- 00 L [address] 58 20 20 0 CA R AT 00 14 14 RE MS IN 8 CH PH AE 40 AR L MA G MG CY TA BL ET AL 00 05 04 11 30 30 TO 82 SC Ac LO 59 -3 -0 0. TA 50 MINAYA ti PU 15 0- 2- 00 L 79 FE ve RI 54 20 20 0 CA R NO 40 13 14 RE MS L 5 CH 30 PH AE 0 AR L MG MA G CY TA BL ET LE 00 04 04 3 30 30 TO 84 SC Ac VO 78 -0 -0 0. TA 80 MINAYA ti TH 15 2- 2- 00 L 05 FE ve YR 18 20 20 0 CA R OX 41 14 14 RE MS IN 0 CH E PH AE 10 AR L 0 MA G MC CY G TA BL ET LE 68 09 03 6 15 30 TO 83 SC Ac VE 18 -1 -1 00 TA 25 MINAYA ti TI 00 1- 9- .0 L 94 FE ve RA 11 20 20 00 CA R CE 30 13 14 RE MS TA 2 CH M PH AE 50 AR L 0 MA G MG CY TA BL ET NO 00 02 03 2 60 30 TO 84 SC Ac RT 59 -1 -1 0. TA 44 MINAYA ti RI 15 8- 7- 00 L 13 FE ve PT 78 20 20 0 CA R YL 80 14 14 RE MS IN 5 CH E PH AE HC AR L L MA G 50 CY MG CA P LI 00 10 02 2 30 30 TO 83 SC Ac SI 18 -3 -1 0. TA 64 MINAYA ti NO 50 1- 8- 00 L 87 FE ve MN 10 20 20 0 CA R IL 21 13 14 RE MS 0 CH 20 PH AE AR L MG MA G CY TA BL ET LE 68 09 02 6 15 30 TO 83 SC Ac VE 18 -1 -1 00 TA 25 MINAYA ti TI 00 1- 8- .0 L 94 FE ve RA 11 20 20 00 CA R CE 30 13 14 RE MS TA 2 CH M PH AE 50 AR L 0 MA G MG CY TA BL ET LE 00 12 02 11 30 30 TO 83 SC Ac VO 52 -1 -1 0. TA 95 MINAYA ti TH 71 2- 8- 00 L 40 FE ve YR 34 20 20 0 CA R OX 21 13 14 RE MS IN 0 CH E PH AE 50 AR L MA G MC CY G TA BL ET MN 68 02 02 3 30 30 TO 84 SC Ac AV 18 -1 -1 0. TA 44 MINAYA ti 00 8- 8- 00 L 12 FE ve TA 48 20 20 0 CA R TI 80 14 14 RE MS N 2 CH SO PH AE DI AR L UM MA G CY 80 MG TA B NO 00 02 02 2 60 30 TO 84 SC Ac RT 59 -1 -1 0. TA 44 MINAYA ti RI 15 8- 8- 00 L 13 FE ve PT 78 20 20 0 CA R YL 80 14 14 RE MS IN 5 CH E PH AE HC AR L L MA G 50 CY MG CA P AL 00 05 02 11 30 30 TO 82 SC Ac LO 59 -3 -1 0. TA 50 MINAYA ti PU 15 0- 8- 00 L 79 FE ve RI 54 20 20 0 CA R NO 40 13 14 RE MS L 5 CH 30 PH AE 0 AR L MG MA G CY TA BL ET LE 68 09 01 6 15 30 TO 83 SC Ac VE 18 -1 -1 00 TA 25 MINAYA ti TI 00 1- 8- .0 L 94 FE ve RA 11 20 20 00 CA R CE 30 13 14 RE MS TA 2 CH M PH AE 50 AR L 0 MA G MG CY TA BL ET LE 00 12 01 11 30 30 TO 83 SC Ac VO 52 -1 -1 0. TA 95 MINAYA ti TH 71 2- 5- 00 L 40 FE ve YR 34 20 20 0 CA R OX 21 13 14 RE MS IN 0 CH E PH AE 50 AR L MA G MC CY G TA BL ET NO 00 11 01 2 60 30 TO 83 SC Ac RT 59 -0 -1 0. TA 67 MINAYA ti RI 15 4- 5- 00 L 02 FE ve PT 78 20 20 0 CA R YL 80 13 14 RE MS IN 5 CH E PH AE HC AR L L MA G 50 CY MG CA P AL 00 05 01 11 30 30 TO 82 SC Ac LO 59 -3 -0 0. TA 50 MINAYA ti PU 15 0- 6- 00 L 79 FE ve RI 54 20 20 0 CA R NO 40 13 14 RE MS L 5 CH 30 PH AE 0 AR L MG MA G CY TA BL ET MN 68 02 01 3 30 30 TO 81 SC Ac AV 18 -0 -0 0. TA 58 MINAYA ti 00 1- 6- 00 L 78 FE ve TA 48 20 20 0 CA R TI 80 13 14 RE MS N 2 CH SO PH AE DI AR L UM MA G CY 80 MG TA B LI 00 10 12 2 30 30 TO 83 SC Ac SI 18 -3 -3 0. TA 64 MINAYA ti NO 50 1- 1- 00 L 87 FE ve MN 10 20 20 0 CA R IL 21 13 13 RE MS 0 CH 20 PH AE AR L MG MA G CY TA BL ET LE 68 09 12 6 15 30 TO 83 SC Ac VE 18 -1 -1 00 TA 25 MINAYA ti TI 00 1- 6- .0 L 94 FE ve RA 11 20 20 00 CA R CE 30 13 13 RE MS TA 2 CH M PH AE 50 AR L 0 MA G MG CY TA BL ET NO 00 11 12 2 60 30 TO 83 SC Ac RT 59 -0 -1 0. TA 67 MINAYA ti RI 15 4- 6- 00 L 02 FE ve PT 78 20 20 0 CA R YL 80 13 13 RE MS IN 5 CH E PH AE HC AR L L MA G 50 CY MG CA P LE 00 12 12 11 30 30 TO 83 SC Ac VO 52 -1 -1 0. TA 95 MINAYA ti TH 71 2- 2- 00 L 40 FE ve YR 34 20 20 0 CA R OX 21 13 13 RE MS IN 0 CH E PH AE 50 AR L MA G MC CY G TA BL ET MN 68 02 12 3 30 30 TO 81 SC Ac AV 18 -0 -0 0. TA 58 MINAYA ti 00 1- 2- 00 L 78 FE ve TA 48 20 20 0 CA R TI 80 13 13 RE MS N 2 CH SO PH AE DI AR L UM MA G CY 80 MG TA B AL 00 05 12 11 30 30 TO 82 SC Ac LO 59 -3 -0 0. TA 50 MINAYA ti PU 15 0- 2- 00 L 79 FE ve RI 54 20 20 0 CA R NO 40 13 13 RE MS L 5 CH 30 PH AE 0 AR L MG MA G CY TA BL ET LE 68 09 11 6 15 30 TO 83 SC Ac VE 18 -1 -1 00 TA 25 MINAYA ti TI 00 1- 8- .0 L 94 FE ve RA 11 20 20 00 CA R CE 30 13 13 RE MS TA 2 CH M PH AE 50 AR L 0 MA G MG CY TA BL ET LE 00 11 11 2 30 30 TO 83 SC Ac VO 78 -1 -1 0. TA 75 MINAYA ti TH 15 5- 5- 00 L 98 FE ve YR 18 20 20 0 CA R OX 01 13 13 RE MS IN 0 CH E PH AE 25 AR L MA G MC CY G TA BL ET LI 00 10 11 2 30 30 TO 83 SC Ac SI 18 -3 -0 0. TA 64 MINAYA ti NO 50 1- 7- 00 L 87 FE ve MN 10 20 20 0 CA R IL 21 13 13 RE MS 0 CH 20 PH AE AR L MG MA G CY TA BL ET NO 00 11 11 2 60 30 TO 83 SC Ac RT 59 -0 -0 0. TA 67 MINAYA ti RI 15 4- 4- 00 L 02 FE ve PT 78 20 20 0 CA R YL 80 13 13 RE MS IN 5 CH E PH AE HC AR L L MA G 50 CY MG CA P LE 68 09 10 6 15 30 TO 83 SC Ac VE 18 -1 -1 00 TA 25 MINAYA ti TI 00 1- 4- .0 L 94 FE ve RA 11 20 20 00 CA R CE 30 13 13 RE MS TA 2 CH M PH AE 50 AR L 0 MA G MG CY TA BL ET MN 68 02 10 3 30 30 TO 81 SC Ac AV 18 -0 -1 0. TA 58 MINAYA ti 00 1- 1- 00 L 78 FE ve TA 48 20 20 0 CA R TI 80 13 13 RE MS N 2 CH SO PH AE DI AR L UM MA G CY 80 MG TA B AL 00 05 10 11 30 30 TO 82 SC Ac LO 59 -3 -1 0. TA 50 MINAYA ti PU 15 0- 1- 00 L 79 FE ve RI 54 20 20 0 CA R NO 40 13 13 RE MS L 5 CH 30 PH AE 0 AR L MG MA G CY TA BL ET LI 00 07 10 2 30 30 TO 82 SC Ac SI 18 -3 -1 0. TA 93 MINAYA ti NO 50 1- 1- 00 L 25 FE ve MN 10 20 20 0 CA R IL 21 13 13 RE MS 0 CH 20 PH AE AR L MG MA G CY TA BL ET NO 00 07 10 2 60 30 TO 82 SC Ac RT 59 -3 -0 0. TA 93 MINAYA ti RI 15 1- 2- 00 L 24 FE ve PT 78 20 20 0 CA R YL 80 13 13 RE MS IN 5 CH E PH AE HC AR L L MA G 50 CY MG CA P LE 68 09 09 6 15 30 TO 83 SC Ac VE 18 -1 -1 00 TA 25 MINAYA ti TI 00 1- 1- .0 L 94 FE ve RA 11 20 20 00 CA R CE 30 13 13 RE MS TA 2 CH M PH AE 50 AR L 0 MA G MG CY TA #5 BL ET NO 00 07 09 2 60 30 TO 82 SC Ac RT 59 -3 -0 0. TA 93 MINAYA ti RI 15 1- 3- 00 L 24 FE ve PT 78 20 20 0 CA R YL 80 13 13 RE MS IN 5 CH E PH AE HC AR L L MA G 50 CY MG #5 CA P MN 68 02 08 3 30 30 TO 81 SC Ac AV 18 -0 -3 0. TA 58 MINAYA ti 00 1- 0- 00 L 78 FE ve TA 48 20 20 0 CA R TI 80 13 13 RE MS N 2 CH SO PH AE DI AR L UM MA G CY 80 #5 MG TA B AL 00 05 08 11 30 30 TO 82 SC Ac LO 59 -3 -3 0. TA 50 MINAYA ti PU 15 0- 0- 00 L 79 FE ve RI 54 20 20 0 CA R NO 40 13 13 RE MS L 5 CH 30 PH AE 0 AR L MG MA G CY TA BL #5 ET LI 00 07 08 2 30 30 TO 82 SC Ac SI 18 -3 -3 0. TA 93 MINAYA ti NO 50 1- 0- 00 L 25 FE ve MN 10 20 20 0 CA R IL 21 13 13 RE MS 0 CH 20 PH AE AR L MG MA G CY TA BL #5 ET LE 68 02 08 6 15 30 TO 81 SC Ac VE 18 -1 -1 00 TA 70 MINAYA ti TI 00 5- 3- .0 L 71 FE ve RA 11 20 20 00 CA R CE 30 13 13 RE MS TA 2 CH M PH AE 50 AR L 0 MA G MG CY TA BL ET NO 00 07 07 2 60 30 TO 82 SC Ac RT 59 -3 -3 0. TA 93 MINAYA ti RI 15 1- 1- 00 L 24 FE ve PT 78 20 20 0 CA R YL 80 13 13 RE MS IN 5 CH E PH AE HC AR L L MA G 50 CY MG CA P MN 68 02 07 3 30 30 TO 81 SC Ac AV 18 -0 -1 0. TA 58 MINAYA ti 00 1- 7- 00 L 78 FE ve TA 48 20 20 0 CA R TI 80 13 13 RE MS N 2 CH SO PH AE DI AR L UM MA G CY 80 MG TA B AL 00 05 07 11 30 30 TO 82 SC Ac LO 59 -3 -1 0. TA 50 MINAYA ti PU 15 0- 7- 00 L 79 FE ve RI 54 20 20 0 CA R NO 40 13 13 RE MS L 5 CH 30 PH AE 0 AR L MG MA G CY TA BL ET LE 68 02 07 6 15 30 TO 81 SC Ac VE 18 -1 -1 00 TA 70 MINAYA ti TI 00 5- 1- .0 L 71 FE ve RA 11 20 20 00 CA R CE 30 13 13 RE MS TA 2 CH M PH AE 50 AR L 0 MA G MG CY TA BL ET LI 00 07 07 0 30 30 TO 82 SC Ac SI 18 -0 -0 0. TA 77 MINAYA ti NO 50 9- 9- 00 L 54 FE ve MN 10 20 20 0 CA R IL 21 13 13 RE MS 0 CH 20 PH AE AR L MG MA G CY TA BL ET LE 00 05 07 2 30 30 TO 82 SC Ac VO 37 -0 -0 0. TA 34 MINAYA ti TH 81 8- 3- 00 L 41 FE ve YR 80 20 20 0 CA R OX 00 13 13 RE MS IN 1 CH E PH AE 25 AR L MA G MC CY G TA BL ET NO 00 04 06 2 60 30 TO 82 SC Ac RT 59 -1 -2 0. TA 17 MINAYA ti RI 15 5- 8- 00 L 15 FE ve PT 78 20 20 0 CA R YL 80 13 13 RE MS IN 5 CH E PH AE HC AR L L MA G 50 CY MG CA P DI 00 06 06 0 10 5 TO 82 GE Ac AZ 17 -2 -2 0. TA 67 IG ti EP 23 4- 4- 00 L 77 ER ve AM 92 20 20 0 CA 5 68 13 13 RE WI 0 LL MG PH IA AR M TA MA F BL CY ET LE 68 02 06 6 15 30 TO 81 SC Ac VE 18 -1 -1 00 TA 70 MINAYA ti TI 00 5- 1- .0 L 71 FE ve RA 11 20 20 00 CA R CE 30 13 13 RE MS TA 2 CH M PH AE 50 AR L 0 MA G MG CY TA BL ET LE 00 05 06 2 30 30 TO 82 SC Ac VO 37 -0 -0 0. TA 34 MINAYA ti TH 81 8- 5- 00 L 41 FE ve YR 80 20 20 0 CA R OX 00 13 13 RE MS IN 1 CH E PH AE 25 AR L MA G MC CY G TA BL ET AL 00 05 05 11 30 30 TO 82 SC Ac LO 59 -3 -3 0. TA 50 MINAYA ti PU 15 0- 0- 00 L 79 FE ve RI 54 20 20 0 CA R NO 40 13 13 RE MS L 5 CH 30 PH AE 0 AR L MG MA G CY TA BL ET NO 00 04 05 2 60 30 TO 82 SC Ac RT 59 -1 -3 0. TA 17 MINAYA ti RI 15 5- 0- 00 L 15 FE ve PT 78 20 20 0 CA R YL 80 13 13 RE MS IN 5 CH E PH AE HC AR L L MA G 50 CY MG CA P MN 68 02 05 3 30 30 TO 81 SC Ac AV 18 -0 -2 0. TA 58 MINAYA ti 00 1- 2- 00 L 78 FE ve TA 48 20 20 0 CA R TI 80 13 13 RE MS N 2 CH SO PH AE DI AR L UM MA G CY 80 MG TA B LE 68 02 05 6 15 30 TO 81 SC Ac VE 18 -1 -1 00 TA 70 MINAYA ti TI 00 5- 3- .0 L 71 FE ve RA 11 20 20 00 CA R CE 30 13 13 RE MS TA 2 CH M PH AE 50 AR L 0 MA G MG CY TA BL ET LE 00 05 05 2 30 30 TO 82 SC Ac VO 37 -0 -0 0. TA 34 MINAYA ti TH 81 8- 8- 00 L 41 FE ve YR 80 20 20 0 CA R OX 00 13 13 RE MS IN 1 CH E PH AE 25 AR L MA G MC CY G TA BL ET NO 00 04 04 2 60 30 TO 82 SC Ac RT 59 -1 -2 0. TA 17 MINAYA ti RI 15 5- 6- 00 L 15 FE ve PT 78 20 20 0 CA R YL 80 13 13 RE MS IN 5 CH E PH AE HC AR L L MA G 50 CY MG CA P AL 00 05 04 11 30 30 TO 79 SC Ac LO 59 -0 -1 0. TA 42 MINAYA ti PU 15 7- 8- 00 L 42 FE ve RI 54 20 20 0 CA R NO 40 12 13 RE MS L 5 CH 30 PH AE 0 AR L MG MA G CY TA BL ET LE 68 02 04 6 15 30 TO 81 SC Ac VE 18 -1 -1 00 TA 70 MINAYA ti TI 00 5- 5- .0 L 71 FE ve RA 11 20 20 00 CA R CE 30 13 13 RE MS TA 2 CH M PH AE 50 AR L 0 MA G MG CY TA BL ET NO 00 01 03 2 60 30 TO 81 SC Ac RT 59 -2 -2 0. TA 51 MINAYA ti RI 15 4- 8- 00 L 29 FE ve PT 78 20 20 0 CA R YL 80 13 13 RE MS IN 5 CH E PH AE HC AR L L MA G 50 CY MG CA P LE 68 02 03 6 15 30 TO 81 SC Ac VE 18 -1 -1 00 TA 70 MINAYA ti TI 00 5- 5- .0 L 71 FE ve RA 11 20 20 00 CA R CE 30 13 13 RE MS TA 2 CH M PH AE 50 AR L 0 MA G MG CY TA BL ET MN 68 02 03 3 30 30 TO 81 SC Ac AV 18 -0 -0 0. TA 58 MINAYA ti 00 1- 7- 00 L 78 FE ve TA 48 20 20 0 CA R TI 80 13 13 RE MS N 2 CH SO PH AE DI AR L UM MA G CY 80 MG TA B LI 00 07 03 3 90 90 TO 79 SC Ac SI 18 -0 -0 0. TA 88 MINAYA ti NO 50 6- 4- 00 L 56 FE ve MN 10 20 20 0 CA R IL 21 12 13 RE MS 0 CH 20 PH AE AR L MG MA G CY TA BL ET LE 00 11 02 2 30 30 TO 80 SC Ac VO 37 -1 -2 0. TA 90 MINAYA ti TH 81 2- 7- 00 L 11 FE ve YR 80 20 20 0 CA R OX 00 12 13 RE MS IN 1 CH E PH AE 25 AR L MA G MC CY G TA BL ET AL 00 05 02 11 30 30 TO 79 SC Ac LO 59 -0 -2 0. TA 42 MINAYA ti PU 15 7- 7- 00 L 42 FE ve RI 54 20 20 0 CA R NO 40 12 13 RE MS L 5 CH 30 PH AE 0 AR L MG MA G CY TA BL ET NO 00 01 02 2 60 30 TO 81 SC Ac RT 59 -2 -2 0. TA 51 MINAYA ti RI 15 4- 7- 00 L 29 FE ve PT 78 20 20 0 CA R YL 80 13 13 RE MS IN 5 CH E PH AE HC AR L L MA G 50 CY MG CA P LE 68 02 02 6 15 30 TO 81 SC Ac VE 18 -1 -1 00 TA 70 MINAYA ti TI 00 5- 5- .0 L 71 FE ve RA 11 20 20 00 CA R CE 30 13 13 RE MS TA 2 CH M PH AE 50 AR L 0 MA G MG CY TA #5 BL ET MN 68 02 02 3 30 30 TO 81 SC Ac AV 18 -0 -0 0. TA 58 MINAYA ti 00 1- 1- 00 L 78 FE ve TA 48 20 20 0 CA R TI 80 13 13 RE MS N 2 CH SO PH AE DI AR L UM MA G CY 80 #5 MG TA B NO 00 01 01 2 60 30 TO 81 SC Ac RT 59 -2 -2 0. TA 51 MINAYA ti RI 15 4- 4- 00 L 29 FE ve PT 78 20 20 0 CA R YL 80 13 13 RE MS IN 1 CH E PH AE HC AR L L MA G 50 CY MG #5 CA P LE 68 07 01 6 15 30 TO 79 SC Ac VE 18 -1 -1 00 TA 97 MINAYA ti TI 00 9- 6- .0 L 87 FE ve RA 11 20 20 00 CA R CE 30 12 13 RE MS TA 2 CH M PH AE 50 AR L 0 MA G MG CY TA #5 BL ET AL 00 05 01 11 30 30 TO 79 SC Ac LO 59 -0 -0 0. TA 42 MINAYA ti PU 15 7- 9- 00 L 42 FE ve RI 54 20 20 0 CA R NO 40 12 13 RE MS L 5 CH 30 PH AE 0 AR L MG MA G CY TA BL #5 ET LE 00 11 01 2 30 30 TO 80 SC Ac VO 37 -1 -0 0. TA 90 MINAYA ti TH 81 2- 9- 00 L 11 FE ve YR 80 20 20 0 CA R OX 00 12 13 RE MS IN 1 CH E PH AE 25 AR L MA G MC CY G TA #5 BL ET NO 00 10 12 2 60 30 TO 80 SC Ac RT 59 -2 -2 0. TA 75 MINAYA ti RI 15 4- 6- 00 L 26 FE ve PT 78 20 20 0 CA R YL 80 12 12 RE MS IN 1 CH E PH AE HC AR L L MA G 50 CY MG #5 CA P LE 68 07 12 6 15 30 TO 79 SC Ac VE 18 -1 -1 00 TA 97 MINAYA ti TI 00 9- 8- .0 L 87 FE ve RA 11 20 20 00 CA R CE 30 12 12 RE MS TA 2 CH M PH AE 50 AR L 0 MA G MG CY TA #5 BL ET MN 68 01 11 3 30 30 TO 78 SC Ac AV 18 -1 -2 0. TA 47 MINAYA ti 00 8- 3- 00 L 65 FE ve TA 48 20 20 0 CA R TI 80 12 12 RE MS N 2 CH SO PH AE DI AR L UM MA G CY 80 #5 MG TA B NO 00 10 11 2 60 30 TO 80 SC Ac RT 59 -2 -2 0. TA 75 MINAYA ti RI 15 4- 3- 00 L 26 FE ve PT 78 20 20 0 CA R YL 80 12 12 RE MS IN 1 CH E PH AE HC AR L L MA G 50 CY MG #5 CA P AL 00 05 11 11 30 30 TO 79 SC Ac LO 59 -0 -2 0. TA 42 MINAYA ti PU 15 7- 3- 00 L 42 FE ve RI 54 20 20 0 CA R NO 40 12 12 RE MS L 5 CH 30 PH AE 0 AR L MG MA G CY TA BL #5 ET LE 68 07 11 6 15 30 TO 79 SC Ac VE 18 -1 -1 00 TA 97 MINAYA ti TI 00 9- 9- .0 L 87 FE ve RA 11 20 20 00 CA R CE 30 12 12 RE MS TA 2 CH M PH AE 50 AR L 0 MA G MG CY TA #5 BL ET LE 00 11 11 2 30 30 TO 80 SC Ac VO 37 -1 -1 0. TA 90 MINAYA ti TH 81 2- 2- 00 L 11 FE ve YR 80 20 20 0 CA R OX 00 12 12 RE MS IN 1 CH E PH AE 25 AR L MA G MC CY G TA #5 BL ET LI 00 07 11 3 90 90 TO 79 SC Ac SI 18 -0 -0 0. TA 88 MINAYA ti NO 50 6- 7- 00 L 56 FE ve MN 10 20 20 0 CA R IL 21 12 12 RE MS 0 CH 20 PH AE AR L MG MA G CY TA BL #5 ET NO 00 10 10 2 60 30 TO 80 SC Ac RT 59 -2 -2 0. TA 75 MINAYA ti RI 15 4- 4- 00 L 26 FE ve PT 78 20 20 0 CA R YL 80 12 12 RE MS IN 1 CH E PH AE HC AR L L MA G 50 CY MG #5 CA P AL 00 05 10 11 30 30 TO 79 SC Ac LO 59 -0 -1 0. TA 42 MINAYA ti PU 15 7- 8- 00 L 42 FE ve RI 54 20 20 0 CA R NO 40 12 12 RE MS L 5 CH 30 PH AE 0 AR L MG MA G CY TA BL #5 ET LE 68 07 10 6 15 30 TO 79 SC Ac VE 18 -1 -1 00 TA 97 MINAYA ti TI 00 9- 7- .0 L 87 FE ve RA 11 20 20 00 CA R CE 30 12 12 RE MS TA 2 CH M PH AE 50 AR L 0 MA G MG CY TA #5 BL ET MN 68 01 10 3 30 30 TO 78 SC Ac AV 18 -1 -1 0. TA 47 MINAYA ti 00 8- 3- 00 L 65 FE ve TA 48 20 20 0 CA R TI 80 12 12 RE MS N 2 CH SO PH AE DI AR L UM MA G CY 80 #5 MG TA B LE 00 07 10 2 30 30 TO 79 SC Ac VO 37 -0 -0 0. TA 89 MINAYA ti TH 81 9- 3- 00 L 98 FE ve YR 80 20 20 0 CA R OX 00 12 12 RE MS IN 1 CH E PH AE 25 AR L MA G MC CY G TA #5 BL ET NO 00 09 09 0 60 30 TO 80 SC Ac RT 59 -2 -2 0. TA 48 MINAYA ti RI 15 1- 1- 00 L 36 FE ve PT 78 20 20 0 CA R YL 80 12 12 RE MS IN 1 CH E PH AE HC AR L L MA G 50 CY MG #5 CA P LE 68 07 09 6 15 30 TO 79 SC Ac VE 18 -1 -2 00 TA 97 MINAYA ti TI 00 9- 0- .0 L 87 FE ve RA 11 20 20 00 CA R CE 30 12 12 RE MS TA 2 CH M PH AE 50 AR L 0 MA G MG CY TA #5 BL ET AL 00 05 09 11 30 30 TO 79 SC Ac LO 59 -0 -0 0. TA 42 MINAYA ti PU 15 7- 5- 00 L 42 FE ve RI 54 20 20 0 CA R NO 40 12 12 RE MS L 5 CH 30 PH AE 0 AR L MG MA G CY TA BL #5 ET MN 68 01 09 3 30 30 TO 78 SC Ac AV 18 -1 -0 0. TA 47 MINAYA ti 00 8- 5- 00 L 65 FE ve TA 48 20 20 0 CA R TI 80 12 12 RE MS N 2 CH SO PH AE DI AR L UM MA G CY 80 #5 MG TA B NO 00 03 08 5 60 30 TO 78 SC Ac RT 59 -1 -2 0. TA 95 MINAYA ti RI 15 2- 0- 00 L 37 FE ve PT 78 20 20 0 CA R YL 80 12 12 RE MS IN 1 CH E PH AE HC AR L L MA G 50 CY MG #5 CA P LE 00 07 08 2 30 30 TO 79 SC Ac VO 37 -0 -2 0. TA 89 MINAYA ti TH 81 9- 0- 00 L 98 FE ve YR 80 20 20 0 CA R OX 00 12 12 RE MS IN 1 CH E PH AE 25 AR L MA G MC CY G TA #5 BL ET LE 68 07 08 6 15 30 TO 79 SC Ac VE 18 -1 -2 00 TA 97 MINAYA ti TI 00 9- 0- .0 L 87 FE ve RA 11 20 20 00 CA R CE 30 12 12 RE MS TA 2 CH M PH AE 50 AR L 0 MA G MG CY TA #5 BL ET AL 00 05 07 11 30 30 TO 79 SC Ac LO 59 -0 -3 0. TA 42 MINAYA ti PU 15 7- 1- 00 L 42 FE ve RI 54 20 20 0 CA R NO 40 12 12 RE MS L 5 CH 30 PH AE 0 AR L MG MA G CY TA BL #5 ET MN 68 01 07 3 30 30 TO 78 SC Ac AV 18 -1 -3 0. TA 47 MINAYA ti 00 8- 1- 00 L 65 FE ve TA 48 20 20 0 CA R TI 80 12 12 RE MS N 2 CH SO PH AE DI AR L UM MA G CY 80 #5 MG TA B NO 00 03 07 5 60 30 TO 78 SC Ac RT 59 -1 -2 0. TA 95 MINAYA ti RI 15 2- 3- 00 L 37 FE ve PT 78 20 20 0 CA R YL 80 12 12 RE MS IN 1 CH E PH AE HC AR L L MA G 50 CY MG #5 CA P LE 68 07 07 6 15 30 TO 79 SC Ac VE 18 -1 -1 00 TA 97 MINAYA ti TI 00 9- 9- .0 L 87 FE ve RA 11 20 20 00 CA R CE 30 12 12 RE MS TA 2 CH M PH AE 50 AR L 0 MA G MG CY TA #5 BL ET LE 00 07 07 2 30 30 TO 79 SC Ac VO 37 -0 -0 0. TA 89 MINAYA ti TH 81 9- 9- 00 L 98 FE ve YR 80 20 20 0 CA R OX 00 12 12 RE MS IN 1 CH E PH AE 25 AR L MA G MC CY G TA #5 BL ET LI 00 07 07 3 90 90 TO 79 SC Ac SI 18 -0 -0 0. TA 88 MINAYA ti NO 50 6- 6- 00 L 56 FE ve MN 10 20 20 0 CA R IL 21 12 12 RE MS 0 CH 20 PH AE AR L MG MA G CY TA BL #5 ET NO 00 03 06 5 60 30 TO 78 SC Ac RT 59 -1 -2 0. TA 95 MINAYA ti RI 15 2- 1- 00 L 37 FE ve PT 78 20 20 0 CA R YL 80 12 12 RE MS IN 1 CH E PH AE HC AR L L MA G 50 CY MG #5 CA P LE 68 12 06 6 15 30 TO 78 SC Ac VE 18 -2 -2 00 TA 22 MINAYA ti TI 00 0- 1- .0 L 69 FE ve RA 11 20 20 00 CA R CE 30 11 12 RE MS TA 2 CH M PH AE 50 AR L 0 MA G MG CY TA #5 BL ET MN 68 01 06 3 30 30 TO 78 SC Ac AV 18 -1 -1 0. TA 47 MINAYA ti 00 8- 5- 00 L 65 FE ve TA 48 20 20 0 CA R TI 80 12 12 RE MS N 2 CH SO PH AE DI AR L UM MA G CY 80 #5 MG TA B LE 00 03 06 3 90 90 TO 79 SC Ac VO 52 -2 -1 0. TA 07 MINAYA ti TH 71 6- 5- 00 L 23 FE ve YR 34 20 20 0 CA R OX 21 12 12 RE MS IN 0 CH E PH AE 50 AR L MA G MC CY G TA #5 BL ET AL 00 05 06 11 30 30 TO 79 SC Ac LO 59 -0 -1 0. TA 42 MINAYA ti PU 15 7- 5- 00 L 42 FE ve RI 54 20 20 0 CA R NO 40 12 12 RE MS L 5 CH 30 PH AE 0 AR L MG MA G CY TA BL #5 ET LI 00 09 06 11 30 30 TO 77 SC Ac SI 18 -0 -0 0. TA 30 MINAYA ti NO 50 7- 6- 00 L 88 FE ve MN 10 20 20 0 CA R IL 11 11 12 RE MS 0 CH 10 PH AE AR L MG MA G CY TA BL #5 ET ME 68 01 05 6 30 30 TO 78 SC Ac LO 38 -1 -3 0. TA 47 MINAYA ti XI 20 8- 1- 00 L 66 FE ve CA 05 20 20 0 CA R M 10 12 12 RE MS 15 5 CH PH AE MG AR L MA G TA CY BL ET #5 LE 68 12 05 6 15 30 TO 78 SC Ac VE 18 -2 -2 00 TA 22 MINAYA ti TI 00 0- 3- .0 L 69 FE ve RA 11 20 20 00 CA R CE 30 11 12 RE MS TA 2 CH M PH AE 50 AR L 0 MA G MG CY TA #5 BL ET NO 00 03 05 5 60 30 TO 78 SC Ac RT 59 -1 -2 0. TA 95 MINAYA ti RI 15 2- 1- 00 L 37 FE ve PT 78 20 20 0 CA R YL 80 12 12 RE MS IN 1 CH E PH AE HC AR L L MA G 50 CY MG #5 CA P AL 00 05 05 11 30 30 TO 79 SC Ac LO 59 -0 -0 0. TA 42 MINAYA ti PU 15 7- 7- 00 L 42 FE ve RI 54 20 20 0 CA R NO 40 12 12 RE MS L 5 CH 30 PH AE 0 AR L MG MA G CY TA BL #5 ET MN 68 01 05 3 30 30 TO 78 SC Ac AV 18 -1 -0 0. TA 47 MINAYA ti 00 8- 7- 00 L 65 FE ve TA 48 20 20 0 CA R TI 80 12 12 RE MS N 2 CH SO PH AE DI AR L UM MA G CY 80 #5 MG TA B LE 68 12 04 6 15 30 TO 78 SC Ac VE 18 -2 -2 00 TA 22 MINAYA ti TI 00 0- 1- .0 L 69 FE ve RA 11 20 20 00 CA R CE 30 11 12 RE MS TA 2 CH M PH AE 50 AR L 0 MA G MG CY TA #5 BL ET NO 00 03 04 5 60 30 TO 78 SC Ac RT 59 -1 -1 0. TA 95 MINAYA ti RI 15 2- 0- 00 L 37 FE ve PT 78 20 20 0 CA R YL 80 12 12 RE MS IN 1 CH E PH AE HC AR L L MA G 50 CY MG #5 CA P ME 68 01 04 6 30 30 TO 78 SC Ac LO 38 -1 -0 0. TA 47 MINAYA ti XI 20 8- 9- 00 L 66 FE ve CA 05 20 20 0 CA R M 10 12 12 RE MS 15 5 CH PH AE MG AR L MA G TA CY BL ET #5 LI 00 09 04 11 30 0 TO 77 SC Ac SI 18 -0 -0 0. TA 30 MINAYA ti NO 50 7- 3- 00 L 88 FE ve MN 10 20 20 0 CA R IL 11 11 12 RE MS 0 CH 10 PH AE AR L MG MA G CY TA BL #5 ET AL 00 08 04 6 30 0 TO 77 KA Ac LO 59 -2 -0 0. TA 22 LF ti PU 15 6- 3- 00 L 63 ve RI 54 20 20 0 CA NO 40 11 12 RE MS L 5 NA 30 PH C 0 AR MG MA CY TA BL #5 ET LE 00 03 03 3 90 0 TO 79 SC Ac VO 52 -2 -2 0. TA 07 MINAYA ti TH 71 6- 6- 00 L 23 FE ve YR 34 20 20 0 CA R OX 21 12 12 RE MS IN 0 CH E PH AE 50 AR L MA G MC CY G TA #5 BL ET LE 68 12 03 6 15 0 TO 78 SC Ac VE 18 -2 -2 00 TA 22 MINAYA ti TI 00 0- 2- .0 L 69 FE ve RA 11 20 20 00 CA R CE 30 11 12 RE MS TA 2 CH M PH AE 50 AR L 0 MA G MG CY TA #5 BL ET MN 68 01 03 3 30 0 TO 78 SC Ac AV 18 -1 -1 0. TA 47 MINAYA ti 00 8- 7- 00 L 65 FE ve TA 48 20 20 0 CA R TI 80 12 12 RE MS N 2 CH SO PH AE DI AR L UM MA G CY 80 #5 MG TA B NO 00 03 03 5 60 0 TO 78 SC Ac RT 59 -1 -1 0. TA 95 MINAYA ti RI 15 2- 2- 00 L 37 FE ve PT 78 20 20 0 CA R YL 80 12 12 RE MS IN 1 CH E PH AE HC AR L L MA G 50 CY MG #5 CA P AL 00 08 03 6 30 0 TO 77 KA Ac LO 59 -2 -0 0. TA 22 LF ti PU 15 6- 1- 00 L 63 ve RI 54 20 20 0 CA NO 40 11 12 RE MS L 5 NA 30 PH C 0 AR MG MA CY TA BL #5 ET LI 00 09 03 11 30 0 TO 77 SC Ac SI 18 -0 -0 0. TA 30 MINAYA ti NO 50 7- 1- 00 L 88 FE ve MN 10 20 20 0 CA R IL 11 11 12 RE MS 0 CH 10 PH AE AR L MG MA G CY TA BL #5 ET ME 68 01 02 6 30 0 TO 78 SC Ac LO 38 -1 -2 0. TA 47 MINAYA ti XI 20 8- 4- 00 L 66 FE ve CA 05 20 20 0 CA R M 10 12 12 RE MS 15 5 CH PH AE MG AR L MA G TA CY BL ET #5 LE 68 12 02 6 15 0 TO 78 SC Ac VE 18 -2 -2 00 TA 22 MINAYA ti TI 00 0- 1- .0 L 69 FE ve RA 11 20 20 00 CA R CE 30 11 12 RE MS TA 2 CH M PH AE 50 AR L 0 MA G MG CY TA #5 BL ET NO 00 01 02 1 60 0 TO 78 SC Ac RT 59 -0 -0 0. TA 37 MINAYA ti RI 15 9- 9- 00 L 63 FE ve PT 78 20 20 0 CA R YL 80 12 12 RE MS IN 1 CH E PH AE HC AR L L MA G 50 CY MG #5 CA P LI 00 09 02 11 30 0 TO 77 SC Ac SI 18 -0 -0 0. TA 30 MINAYA ti NO 50 7- 1- 00 L 88 FE ve MN 10 20 20 0 CA R IL 11 11 12 RE MS 0 CH 10 PH AE AR L MG MA G CY TA BL #5 ET AL 00 08 02 6 30 0 TO 77 KA Ac LO 59 -2 -0 0. TA 22 LF ti PU 15 6- 1- 00 L 63 ve RI 54 20 20 0 CA NO 40 11 12 RE MS L 5 NA 30 PH C 0 AR MG MA CY TA BL #5 ET TR 65 01 01 3 90 0 TO 78 SC Ac AM 16 -2 -2 0. TA 54 MINAYA ti AD 20 5- 5- 00 L 59 FE ve OL 62 20 20 0 CA R 71 12 12 RE MS HC 1 CH L PH AE 50 AR L MA G MG CY TA #5 BL ET LE 68 12 01 6 15 0 TO 78 SC Ac VE 18 -2 -2 00 TA 22 MINAYA ti TI 00 0- 0- .0 L 69 FE ve RA 11 20 20 00 CA R CE 30 11 12 RE MS TA 2 CH M PH AE 50 AR L 0 MA G MG CY TA #5 BL ET MN 68 01 01 3 30 0 TO 78 SC Ac AV 18 -1 -1 0. TA 47 MINAYA ti 00 8- 8- 00 L 65 FE ve TA 48 20 20 0 CA R TI 80 12 12 RE MS N 2 CH SO PH AE DI AR L UM MA G CY 80 #5 MG TA B ME 68 01 01 6 30 0 TO 78 SC Ac LO 38 -1 -1 0. TA 47 MINAYA ti XI 20 8- 8- 00 L 66 FE ve CA 05 20 20 0 CA R M 10 12 12 RE MS 15 5 CH PH AE MG AR L MA G TA CY BL ET #5 SI 68 11 01 4 30 0 TO 77 SC Ac MV 38 -0 -1 0. TA 81 MINAYA ti 20 2- 7- 00 L 52 FE ve TA 06 20 20 0 CA R TI 90 11 12 RE MS N 5 CH 80 PH AE AR L MG MA G CY TA BL #5 ET NO 00 01 01 1 60 0 TO 78 SC Ac RT 59 -0 -0 0. TA 37 MINAYA ti RI 15 9- 9- 00 L 63 FE ve PT 78 20 20 0 CA R YL 80 12 12 RE MS IN 1 CH E PH AE HC AR L L MA G 50 CY MG #5 CA P LI 00 09 12 11 30 0 TO 77 SC Ac SI 18 -0 -3 0. TA 30 MINAYA ti NO 50 7- 0- 00 L 88 FE ve MN 10 20 20 0 CA R IL 11 11 11 RE MS 0 CH 10 PH AE AR L MG MA G CY TA BL #5 ET AL 00 08 12 6 30 0 TO 77 KA Ac LO 59 -2 -3 0. TA 22 LF ti PU 15 6- 0- 00 L 63 ve RI 54 20 20 0 CA NO 40 11 11 RE MS L 5 NA 30 PH C 0 AR MG MA CY TA BL #5 ET LE 68 12 12 6 15 30 78 SC Ac VE 18 -2 -2 0. 22 MINAYA ti TI 00 0- 0- 00 69 FE ve RA 11 20 20 0 R CE 30 11 11 MS TA 2 CH M AE 50 L 0 G MG TA BL ET SI 68 11 12 4 30 30 77 SC Ac MV 38 -0 -0 .0 81 MINAYA ti 20 2- 7- 00 52 FE ve TA 06 20 20 R TI 90 11 11 MS N 5 CH 80 AE L MG G TA BL ET NO 00 11 12 1 60 30 77 SC Ac RT 59 -0 -0 .0 81 MINAYA ti RI 15 2 7 53 FE ve PT 78 20 20 R YL 80 11 11 MS IN 1 CH E AE HC L L G 50 MG CA P AL 00 08 11 6 30 30 77 KA Ac LO 59 -2 -2 .0 22 LF ti PU 15 6 63 ve RI 54 20 20 NO 40 11 11 MS L 5 NA 30 C 0 MG TA BL ET LI 00 09 11 11 30 30 77 SC Ac SI 18 -0 -2 .0 30 MINAYA ti NO 50 7 3 88 FE ve MN 10 20 20 R IL 11 11 11 MS 0 CH 10 AE L MG G TA BL ET LE 68 11 11 6 15 30 77 SC Ac VE 18 -1 -1 0. 96 MINAYA ti TI 00 58 FE ve RA 11 20 20 0 R CE 30 11 11 MS TA 2 CH M AE 50 L 0 G MG TA BL ET NO 00 11 11 1 60 30 77 SC Ac RT 59 -0 -0 .0 81 MINAYA ti RI 15 53 FE ve PT 78 20 20 R YL 80 11 11 MS IN 1 CH E AE HC L L G 50 MG CA P SI 68 11 11 4 30 30 77 SC Ac MV 38 -0 -0 .0 81 MINAYA ti 20 2 2 00 52 FE ve TA 06 20 20 R TI 90 11 11 MS N 5 CH 80 AE L MG G TA BL ET LI 00 09 10 11 30 30 77 SC Ac SI 18 -0 -2 .0 30 MINAYA ti NO 50 88 FE ve MN 10 20 20 R IL 11 11 11 MS 0 CH 10 AE L MG G TA BL ET LE 68 09 10 1 15 30 77 SC Ac VE 18 -1 -1 0. 40 MINAYA ti TI 00 99 FE ve RA 11 20 20 0 R CE 30 11 11 MS TA 2 CH M AE 50 L 0 G MG TA BL ET AC 64 10 10 3 90 90 77 SC Ac TO 76 -1 -1 .0 66 MINAYA ti S 40 02 FE ve 45 45 20 20 R 12 11 11 MS MG 4 CH AE TA L BL G ET TR 65 10 10 5 60 30 77 SC Ac AM 16 -1 -1 .0 66 MINAYA ti AD 20 13 FE ve OL 62 20 20 R 71 11 11 MS HC 1 CH L AE 50 L G MG TA BL ET AL 00 08 10 6 30 30 77 KA Ac LO 59 -2 -1 .0 22 LF ti PU 15 6- 3- 00 63 ve RI 54 20 20 NO 40 11 11 MS L 5 NA 30 C 0 MG TA BL ET NO 00 09 10 1 60 30 77 SC Ac RT 59 -0 -0 .0 27 MINAYA ti RI 15 2- 7- 00 87 FE ve PT 78 20 20 R YL 80 11 11 MS IN 1 CH E AE HC L L G 50 MG CA P SI 68 04 10 4 30 30 76 KA Ac MV 38 -0 -0 .0 08 LF ti 20 8- 1 00 95 ve TA 06 20 20 TI 90 11 11 MS N 5 NA 80 C MG TA BL ET LE 68 09 09 1 15 30 77 SC Ac VE 18 -1 -1 0. 40 MINAYA ti TI 00 99 FE ve RA 11 20 20 0 R CE 30 11 11 MS TA 2 CH M AE 50 L 0 G MG TA BL ET LI 00 09 09 11 30 30 77 SC Ac SI 18 -0 -0 .0 30 MINAYA ti NO 50 88 FE ve MN 10 20 20 R IL 11 11 11 MS 0 CH 10 AE L MG G TA BL ET NO 00 09 09 1 60 30 77 SC Ac RT 59 -0 -0 .0 27 MINAYA ti RI 15 2- 2- 00 87 FE ve PT 78 20 20 R YL 80 11 11 MS IN 1 CH E AE HC L L G 50 MG CA P AL 00 08 08 6 30 30 77 KA Ac LO 59 -2 -2 .0 22 LF ti PU 15 6- 6- 00 63 ve RI 54 20 20 NO 40 11 11 MS L 5 NA 30 C 0 MG TA BL ET LE 68 07 08 1 15 30 76 KA Ac VE 18 -1 -1 0. 88 LF ti TI 00 5 6 00 68 ve RA 11 20 20 0 CE 30 11 11 MS TA 2 NA M C 50 0 MG TA BL ET NO 00 01 08 3 60 30 75 KA Ac RT 59 -2 -0 .0 42 LF ti RI 15 8- 2- 00 31 ve PT 78 20 20 YL 80 11 11 MS IN 1 NA E C HC L 50 MG CA P SI 68 04 08 4 30 30 76 KA Ac MV 38 -0 -0 .0 08 LF ti 20 8- 2 00 95 ve TA 06 20 20 TI 90 11 11 MS N 5 NA 80 C MG TA BL ET LI 00 04 07 3 30 30 76 SC Ac SI 18 -1 -2 .0 13 MINAYA ti NO 50 4- 8- 00 54 CK ve MN 10 20 20 IL 11 11 11 BR 0 IA 10 N MG TA BL ET LE 68 07 07 1 15 30 76 KA Ac VE 18 -1 -1 0. 88 LF ti TI 00 5- 5- 00 68 ve RA 11 20 20 0 CE 30 11 11 MS TA 2 NA M C 50 0 MG TA BL ET AL 00 03 07 3 30 30 75 KA Ac LO 59 -2 -1 .0 94 LF ti PU 15 3- 3- 00 44 ve RI 54 20 20 NO 40 11 11 MS L 5 NA 30 C 0 MG TA BL ET NO 00 01 06 3 60 30 75 KA Ac RT 59 -2 -2 .0 42 LF ti RI 15 8- 9- 00 31 ve PT 78 20 20 YL 80 11 11 MS IN 1 NA E C HC L 50 MG CA P AC 00 06 06 0 60 30 76 KA Ac ET 40 -2 -2 .0 75 LF ti AM 60 8- 8- 00 38 ve IN 48 20 20 OP 41 11 11 MS HE 0 NA N- C CO D #3 TA BL ET SI 68 04 06 4 30 30 76 KA Ac MV 38 -0 -2 .0 08 LF ti 20 8- 0- 00 95 ve TA 06 20 20 TI 90 11 11 MS N 5 NA 80 C MG TA BL ET HY 00 06 06 1 30 [address] 17 -2 -2 .0 68 LF ti OC 22 0- 0- 00 50 ve HL 08 20 20 OR 38 11 11 MS OT 0 NA HI C AZ ID E 25 MG TA B LI 00 04 06 3 30 30 76 SC Ac SI 18 -1 -2 .0 13 MINAYA ti NO 50 4- 0- 00 54 CK ve MN 10 20 20 IL 11 11 11 BR 0 IA 10 N MG TA BL ET LE 68 05 06 1 15 30 76 KA Ac VE 18 -1 -1 0. 41 LF ti TI 00 7- 6- 00 34 ve RA 11 20 20 0 CE 30 11 11 MS TA 2 NA M C 50 0 MG TA BL ET NO 00 01 05 3 60 30 75 KA Ac RT 59 -2 -3 .0 42 LF ti RI 15 8- 1- 00 31 ve PT 78 20 20 YL 80 11 11 MS IN 1 NA E C HC L 50 MG CA P AL 00 03 05 3 30 30 75 KA Ac LO 59 -2 -3 .0 94 LF ti PU 15 3 44 ve RI 54 20 20 NO 40 11 11 MS L 5 NA 30 C 0 MG TA BL ET SI 68 04 05 4 30 30 76 KA Ac MV 38 -0 -1 .0 08 LF ti 20 95 ve TA 06 20 20 TI 90 11 11 MS N 5 NA 80 C MG TA BL ET LE 68 05 05 1 15 30 76 KA Ac VE 18 -1 -1 0. 41 LF ti TI 00 34 ve RA 11 20 20 0 CE 30 11 11 MS TA 2 NA M C 50 0 MG TA BL ET LI 00 04 05 3 30 30 76 SC Ac SI 18 -1 -1 .0 13 MINAYA ti NO 50 54 CK ve MN 10 20 20 IL 11 11 11 BR 0 IA 10 N MG TA BL ET HY 00 12 05 1 30 [address] 17 -1 -0 .0 03 LF ti OC 22 95 ve HL 08 20 20 OR 38 10 11 MS OT 0 NA HI C AZ ID E 25 MG TA B AC 00 01 05 2 60 30 75 KA Ac ET 40 -3 -0 .0 43 LF ti AM 60 70 ve IN 48 20 20 OP 41 11 11 MS HE 0 NA N- C CO D #3 TA BL ET NO 00 03 04 1 60 30 75 KA Ac RT 59 -2 -2 .0 93 LF ti RI 15 10 ve PT 78 20 20 YL 80 11 11 MS IN 1 NA E C HC L 50 MG CA P AL 00 03 04 3 30 30 75 KA Ac LO 59 -2 -1 .0 94 LF ti PU 15 3 44 ve RI 54 20 20 NO 40 11 11 MS L 5 NA 30 C 0 MG TA BL ET LE 68 03 04 1 15 30 75 KA Ac VE 18 -2 -1 0. 92 LF ti TI 00 43 ve RA 11 20 20 0 CE 30 11 11 MS TA 2 NA M C 50 0 MG TA BL ET LI 00 04 04 3 30 30 76 SC Ac SI 18 -1 -1 .0 13 MINAYA ti NO 50 4- 54 CK ve MN 10 20 20 IL 11 11 11 BR 0 IA 10 N MG TA BL ET SI 68 04 04 4 30 30 76 KA Ac MV 38 -0 -0 .0 08 LF ti 20 95 ve TA 06 20 20 TI 90 11 11 MS N 5 NA 80 C MG TA BL ET AL 00 03 03 3 30 30 75 KA Ac LO 59 -2 -2 .0 94 LF ti PU 15 3 44 ve RI 54 20 20 NO 40 11 11 MS L 5 NA 30 C 0 MG TA BL ET NO 00 03 03 1 60 30 75 KA Ac RT 59 -2 -2 .0 93 LF ti RI 15 2 00 10 ve PT 78 20 20 YL 80 11 11 MS IN 1 NA E C HC L 50 MG CA P LE 68 03 03 1 15 30 75 KA Ac VE 18 -2 -2 0. 92 LF ti TI 00 43 ve RA 11 20 20 0 CE 30 11 11 MS TA 2 NA M C 50 0 MG TA BL ET LI 00 01 03 2 30 30 75 KA Ac SI 18 -1 -1 .0 27 LF ti NO 50 05 ve MN 10 20 20 IL 11 11 11 MS 0 NA 10 C MG TA BL ET NO 00 11 03 1 30 30 74 KA Ac RT 59 -0 -0 .0 73 LF ti RI 15 93 ve PT 78 20 20 YL 80 10 11 MS IN 1 NA E C HC L 50 MG CA P AC 00 01 02 2 60 30 75 KA Ac ET 40 -3 -2 .0 43 LF ti AM 60 70 ve IN 48 20 20 OP 41 11 11 MS HE 0 NA N- C CO D #3 TA BL ET AL 53 12 02 2 30 30 74 KA Ac LO 48 -0 -1 .0 95 LF ti PU 90 3 06 ve RI 15 20 20 NO 71 10 11 MS L 0 NA 30 C 0 MG TA BL ET LE 68 01 02 1 15 30 75 KA Ac VE 18 -1 -1 0. 33 LF ti TI 00 36 ve RA 11 20 20 0 CE 30 11 11 MS TA 2 NA M C 50 0 MG TA BL ET LI 00 01 02 2 30 30 75 KA Ac SI 18 -1 -1 .0 27 LF ti NO 50 1- 4- 00 05 ve MN 10 20 20 IL 11 11 11 MS 0 NA 10 C MG TA BL ET AC 00 01 01 2 60 30 75 KA Ac ET 40 -3 -3 .0 43 LF ti AM 60 1- 00 70 ve IN 48 20 20 OP 41 11 11 MS HE 0 NA N- C CO D #3 TA BL ET NO 00 01 01 3 60 30 75 KA Ac RT 59 -2 -2 .0 42 LF ti RI 15 8 8- 00 31 ve PT 78 20 20 YL 80 11 11 MS IN 1 NA E C HC L 50 MG CA P HY 00 12 01 1 [address] 17 -1 -1 .0 03 LF ti OC 22 4 8 00 95 ve HL 08 20 20 OR 38 10 11 MS OT 0 NA HI C AZ ID E 25 MG TA B LE 68 01 01 1 15 30 75 KA Ac VE 18 -1 -1 0. 33 LF ti TI 00 8 36 ve RA 11 20 20 0 CE 30 11 11 MS TA 2 NA M C 50 0 MG TA BL ET SI 68 01 01 1 30 30 75 KA Ac MV 38 -1 -1 .0 33 LF ti 20 8 37 ve TA 06 20 20 TI 90 11 11 MS N 5 NA 80 C MG TA BL ET NO 00 11 01 1 30 30 74 KA Ac RT 59 -0 -1 .0 73 LF ti RI 15 9- 3- 00 93 ve PT 78 20 20 YL 80 10 11 MS IN 1 NA E C HC L 50 MG CA P LI 00 01 01 2 30 30 75 KA Ac SI 18 -1 -1 .0 27 LF ti NO 50 1- 1- 05 ve MN 10 20 20 IL 11 11 11 MS 0 NA 10 C MG TA BL ET AL 00 12 01 2 30 30 74 KA Ac LO 59 -0 -1 .0 95 LF ti PU 15 3- 0- 00 06 ve RI 54 20 20 NO 40 10 11 MS L 5 NA 30 C 0 MG TA BL ET AC 00 12 12 0 60 30 75 FCO Ac ET 40 -1 -1 .0 02 MINAYA ti AM 60 0- 5- 00 10 NA ve IN 48 20 20 N OP 41 10 10 PE HE 0 RR N- Y CO K D #3 TA BL ET NO 00 11 12 1 30 30 74 KA Ac RT 59 -1 -1 .0 79 LF ti RI 15 6- 4- 00 63 ve PT 78 20 20 YL 80 10 10 MS IN 1 NA E C HC L 50 MG CA P LE 68 11 12 1 15 30 74 KA Ac VE 18 -1 -1 0. 77 LF ti TI 00 2- 3- 00 12 ve RA 11 20 20 0 CE 30 10 10 MS TA 2 NA M C 50 0 MG TA BL ET HY 00 10 12 1 [address] 17 -1 -0 .0 50 LF ti OC 22 3- 9- 00 20 ve HL 08 20 20 OR 38 10 10 MS OT 0 NA HI C AZ ID E 25 MG TA B LI 00 10 12 1 30 30 74 KA Ac SI 18 -1 -0 .0 50 LF ti NO 50 3 9 21 ve MN 10 20 20 IL 21 10 10 MS 0 NA 20 C MG TA BL ET AL 00 12 12 2 30 30 74 KA Ac LO 59 -0 -0 .0 95 LF ti PU 15 3- 3- 06 ve RI 54 20 20 NO 40 10 10 MS L 5 NA 30 C 0 MG TA BL ET AM 00 11 11 0 20 10 74 KA Ac OX 78 -2 -2 .0 89 LF ti IC 15 9- 9- 00 53 ve IL 06 20 20 LI 10 10 10 MS N 1 NA 87 C 5 MG TA BL ET IN 00 08 11 2 90 30 73 KA Ac DO 09 -0 -2 .0 92 LF ti ME 34 4- 2- 00 73 ve TH 03 20 20 AC 00 10 10 MS IN 5 NA C 50 MG CA PS UL E AC 00 11 11 0 60 30 74 KA Ac ET 40 -1 -1 .0 81 LF ti AM 60 7- 7- 00 33 ve IN 48 20 20 OP 41 10 10 MS HE 0 NA N- C CO D #3 TA BL ET NO 00 11 11 1 30 30 74 KA Ac RT 59 -1 -1 .0 79 LF ti RI 15 6- 6- 00 63 ve PT 78 20 20 YL 80 10 10 MS IN 1 NA E C HC L 50 MG CA P LE 68 11 11 1 15 30 74 KA Ac VE 18 -1 -1 0. 77 LF ti TI 00 2- 2- 00 12 ve RA 11 20 20 0 CE 30 10 10 MS TA 2 NA M C 50 0 MG TA BL ET SI 68 10 11 1 30 30 74 KA Ac MV 38 -0 -0 .0 42 LF ti 20 5- 1- 00 30 ve TA 06 20 20 TI 90 10 10 MS N 5 NA 80 C MG TA BL ET HY 00 10 11 1 [address] 17 -1 -0 .0 50 LF ti OC 22 3- 1- 00 20 ve HL 08 20 20 OR 38 10 10 MS OT 0 NA HI C AZ ID E 25 MG TA B CA 68 09 10 2 60 30 74 KA Ac RV 38 -0 -2 .0 18 LF ti ED 20 7- 5- 00 41 ve IL 09 20 20 OL 30 10 10 MS 5 NA 6. C 25 MG TA BL ET NO 00 02 10 3 30 30 72 KA Ac RT 59 -0 -1 .0 41 LF ti RI 15 3 8 76 ve PT 78 20 20 YL 80 10 10 MS IN 1 NA E C HC L 50 MG CA P LE 68 08 10 3 12 30 74 KA Ac VE 18 -2 -1 0. 06 LF ti TI 00 0- 8- 08 ve RA 11 20 20 0 CE 30 10 10 MS TA 2 NA M C 50 0 MG TA BL ET CI 65 05 10 4 15 30 74 KA Ac TA 86 -2 -1 .0 07 LF ti LO 20 6- 3- 00 05 ve MN 00 20 20 AM 70 10 10 MS 5 NA HB C R 40 MG TA BL ET LI 00 05 10 0 28 28 74 KA Ac SI 18 -1 -1 .0 47 LF ti NO 50 0- 1- 00 15 ve MN 10 20 20 IL 21 10 10 MS 0 NA 20 C MG TA BL ET SI 68 10 10 1 30 30 74 KA Ac MV 38 -0 -0 .0 42 LF ti 20 5- 5- 00 30 ve TA 06 20 20 TI 90 10 10 MS N 5 NA 80 C MG TA BL ET HY 00 05 10 0 [address] 17 -1 -0 .0 41 LF ti OC 22 0- 4- 00 63 ve HL 08 20 20 OR 38 10 10 MS OT 0 NA HI C AZ ID E 25 MG TA B IN 00 08 10 2 90 30 73 KA Ac DO 09 -0 -0 .0 92 LF ti ME 34 4- 1- 00 73 ve TH 03 20 20 AC 00 10 10 MS IN 5 NA C 50 MG CA PS UL E AC 00 09 10 0 60 30 74 KA Ac ET 40 -1 -0 .0 27 LF ti AM 60 5- 1- 00 03 ve IN 48 20 20 OP 41 10 10 MS HE 0 NA N- C CO D #3 TA BL ET LE 68 08 09 3 12 30 74 KA Ac VE 18 -2 -2 0. 06 LF ti TI 00 0- 1- 00 08 ve RA 11 20 20 0 CE 31 10 10 MS TA 6 NA M C 50 0 MG TA BL ET NO 00 02 09 3 30 30 72 KA Ac RT 59 -0 -1 .0 41 LF ti RI 15 3- 0- 00 76 ve PT 78 20 20 YL 80 10 10 MS IN 1 NA E C HC L 50 MG CA P CA 68 09 09 2 60 30 74 KA Ac RV 38 -0 -0 .0 18 LF ti ED 20 7- 7- 00 41 ve IL 09 20 20 OL 30 10 10 MS 5 NA 6. C 25 MG TA BL ET SI 68 12 09 0 30 30 74 KA Ac MV 38 -3 -0 .0 15 LF ti 20 1- 2- 00 27 ve TA 06 20 20 TI 90 09 10 MS N 5 NA 80 C MG TA BL ET CI 65 08 08 4 15 30 74 KA Ac TA 16 -2 -2 .0 07 LF ti LO 20 3- 3- 00 05 ve MN 05 20 20 AM 45 10 10 MS 0 NA HB C R 40 MG TA BL ET AC 00 08 08 0 60 30 74 KA Ac ET 40 -2 -2 .0 06 LF ti AM 60 0- 0- 00 07 ve IN 48 20 20 OP 41 10 10 MS HE 0 NA N- C CO D #3 TA BL ET LE 68 08 08 3 12 30 74 KA Ac VE 18 -2 -2 0. 06 LF ti TI 00 0- 0- 00 08 ve RA 11 20 20 0 CE 31 10 10 MS TA 6 NA M C 50 0 MG TA BL ET IN 00 08 08 2 90 30 73 KA Ac DO 09 -0 -0 .0 92 LF ti ME 34 4- 4- 00 73 ve TH 03 20 20 AC 00 10 10 MS IN 1 NA C 50 MG CA PS UL E Immunization Name Date Rout CVX Reac Dose Comm Prov Is Faci e tion ent ider Refu lity Give sed n IIV4 09-[address] 7-20 RAFT SHEFALI VACC 16 TRO ABET H PRES PHYS RV ICIA FREE NS 0.5 ML FOR IM USE PPSV 04-[address] 23 1-20 RAFT SHEFALI VACC 16 TRO ABET INE H 2 PHYS YRS ICIA OR NS OLDE R FOR SUBQ /IM USE IIV3 11-[address] 1-20 AMY SHEFALI VACC 13 AP ABET INE H SPLI PHYS T ICIA VIRU NS S 0.5 ML DOSA GE IM USE IIV3 11-[address] 6-20 AMY SHEFALI VACC 12 AP ABET H PRES PHYS ERVA ICIA TIVE NS FREE 0.5 ML DOSA GE IM USE IIV3 11-[address] 9-20 SHEFALI SHEFALI VACC 10 ABET ABET INE H H SPLI PHYS PHYS T ICIA ICIA VIRU NS NS S 0.5 ML DOSA GE IM USE Procedures Procedure DOS Code Location Performer Comment DIRECT G0299 [facility] RN 7 BARBARA BARBAR[facility] HOME HOME HOME HEALTH/HO CARE CARE SPICE SET EA 15 MIN DIRECT G0299 [facility] RN 7 BARBARA BARBARA HOME HOME HOME HEALTH/HO CARE CARE SPICE SET EA 15 MIN DIRECT G0299 [facility] RN 7 BARBARA BARBARA HOME HOME HOME HEALTH/HO CARE CARE SPICE SET EA 15 MIN NONEMERGE A0130 [facility] 7 INC TRANSPORT TRANSPORT REGION 9 ATION CO ATION: L MARYCRUZ Vanegas VAN DIRECT G0299 [facility] SNS RN 7 BARBARA BARBARA HOME HOME HOME HEALTH/HO CARE CARE SPICE SET EA 15 MIN THER 15834 [facility] PROPH/DX 7 BARBARA JIMENEZ NJX EA SEQL IV HEALTHCAR HEALTHCAR PUSH E АНДРЕЙ CHIANG SBST/DRUG FAC OBSERVATI 72817 [facility] ON CARE 7 BARBARA ALFARO DISCHARGE PHYSICIAN MANAGEMEN S T INJECTION J0131 ST 7 BARBARA JIMENEZ ACETAMINO PHEN 10 HEALTHCAR HEALTHCAR MG E EDGE E EDGE INJECTION J1642 [facility] HEPARIN 7 BARBARA JIMENEZ SODIUM PER 10 HEALTHCAR HEALTHCAR UNITS E EDGE E EDGE INJECTION J1650 [facility] 7 BARBARA BARBARA ENOXAPARI N SODIUM HEALTHCAR HEALTHCAR 10 MG E EDGE E EDGE POTASSIUM 91330 [facility] SERUM 7 BARBARA BARBARA PLASMA/WH OLE BLOOD HEALTHCAR HEALTHCAR E EDGE E EDGE THERAPEUT 88935 [facility] IC 7 BARBARA BARBARA PROPHYLAC TIC/DX HEALTHCAR HEALTHCAR INJECTION E EDGE E EDGE SUBQ/IM NONEMERGE A0130 [facility] 7 INC TRANSPORT TRANSPORT REGION 9 ATION CO ATION: L [facility] 40099 [facility] DISCHARGE 7 BARBARA JR NASH MANAGEMEN PHYSICIAN T > 30 S MIN THERAPEUT 91276 [facility] IC 7 BARBARA BARBARA PROPHYLAC TIC/DX HEALTHCAR HEALTHCAR INJECTION E EDGE E EDGE SUBQ/[place] [address] [facility] MAGNESIUM 7 BARBARA BARBARA HEALTHCAR HEALTHCAR E EDGE E EDGE INJECTION J1650 [facility] 7 BARBARARED JIMENEZ ENOXAPARI N SODIUM HEALTHCAR HEALTHCAR 10 MG E EDGE E EDGE INJECTION J0131 [facility] 7 BARBARA BARBARA ACETAMINO PHEN 10 HEALTHCAR HEALTHCAR MG E EDGE E EDGE INJECTION J2250 [facility] 7 BARBARA BARBARA MIDAZOLAM HCL PER HEALTHCAR HEALTHCAR 1 MG E EDGE E EDGE MOD SED 47402 [facility] SAME 7 BARBARA PHYS/QHP INITIAL PHYSICIAN 15 MINS S 5/> YRS MOD SED 23283 [facility] SAME 7 BARBARA PHYS/QHP EACH ADDL PHYSICIAN 15 MINS S PREALBUMI 73108 [facility] N 7 BARBARA BARBARA HEALTHCAR HEALTHCAR E EDGE E EDGE EGD 29765 [facility] PERCUTANE 7 BARBARA OUS PLACEMENT PHYSICIAN S GASTROSTO MY TUBE THER 05997 [facility] PROPH/DX 7 BARBARA BARBARA NJX EA SEQL IV HEALTHCAR HEALTHCAR PUSH E EDGE E EDGE SBST/DRUG FAC INJECTION J1200 [place] [address] BARBARAJOSAFAT JIMENEZ DIPHENHYD RAMINE HEALTHCAR HEALTHCAR HCL UP TO E EDGE E EDGE 50 MG INJECTION J3010 [facility] FENTANYL 7 BARBARAJOSAFAT JIMENEZ CITRATE 0.1 MG HEALTHCAR HEALTHCAR E EDGE E EDGE MODERATE G0500 [facility] SEDAT 7 BARBARARED JIMENEZ SRVC PROV SAME HEALTHCAR HEALTHCAR [place] [address] [facility] INFUSION 7 BARBARA BARBARA HYDRATION EACH HEALTHCAR HEALTHCAR [place] [address] [facility] INFUSION 7 BARBARA BARBARA HYDRATION EACH HEALTHCAR HEALTHCAR ADDITIONA E EDGE E EDGE L HOUR [facility] G0378 [facility] OBSERVATI 7 BARBARA JIMENEZ ON SERVICE HEALTHCAR HEALTHCAR PER HOUR E EDGE E EDGE THER 77785 [facility] PROPH/DX 7 BARBARA JIMENEZ NJX EA SEQL IV HEALTHCAR HEALTHCAR PUSH E EDGE E EDGE SBST/DRUG FAC SBSQ 06352 [facility] 7 BARBARA JR CARE/DAY 25 PHYSICIAN MINUTES S INJECTION J0131 [place] [address] BARBARA JIMENEZ ACETAMINO PHEN 10 HEALTHCAR HEALTHCAR MG E EDGE E EDGE INJECTION J1650 [place] [address] BARBARA JIMENEZ ENOXAPARI N SODIUM HEALTHCAR HEALTHCAR 10 MG E EDGE E EDGE INITIAL 88635 [facility] 7 BARBARA CONSULT NEW/ESTAB PHYSICIAN PT 80 S MIN THERAPEUT 78693 [facility] IC 7 BARBARA BARBARA PROPHYLAC TIC/DX HEALTHCAR HEALTHCAR INJECTION E EDGE E EDGE SUBQ/IM THERAPEUT 41903 [facility] IC 7 BARBARA BARBARA PROPHYLAC TIC/DX HEALTHCAR HEALTHCAR INJECTION E EDGE E EDGE SUBQ/IM THER 99522 [facility] PROPH/DX 7 BARBARA BARBARA NJX IV PUSH HEALTHCAR HEALTHCAR SINGLE/1S E EDGE E EDGE T SBST/DRUG INJECTION J0131 ST 7 BARBARA BARBARA ACETAMINO PHEN 10 HEALTHCAR HEALTHCAR MG E EDGE E EDGE INJECTION J2270 [facility] MORPHINE 7 BARBARA BARBARA SULFATE UP TO 10 HEALTHCAR HEALTHCAR MG E EDGE E EDGE GROUND A0425 SHAI SHAI MILEAGE 7 CO CO PER AMBULANCE AMBULANCE STATUTE TAXIN TAXIN MILE AMBULANCE A0429 SHAI SHAI SERVICE 7 CO CO BLS AMBULANCE AMBULANCE EMERGENCY TAXIN TAXIN TRANSPORT INITIAL [address]/DAY 50 [place] [address] [facility] INFUSION 7 BARBARA BARBARA HYDRATION EACH HEALTHCAR HEALTHCAR ADDITIONA E EDGE E EDGE L HOUR NONEMERGE A0130 [facility] 7 INC TRANSPORT TRANSPORT REGION 9 ATION CO ATION: Alexandru WILLAMS PWR K0823 PATIENT PATIENT GRP 2 STD 7 AIDS INC AIDS INC CAPTAINS CHAIR PT TO &=300 LBS ACCSS E0973 PATIENT PATIENT ADJUSTBL 7 AIDS INC AIDS INC HT DTACH ARMRST CMPL ASSMBL EA CHIROPRAC 55661 [facility] TIC 7 CHIROPRAC CHIROPRAC MANIPULAT TIC TIC SUR[facility]DRA [place] CENTER CENTER SPINAL 1-2 REGIONS NONEMERGE A0130 [facility] 7 INC TRANSPORT TRANSPORT REGION 9 ATION CO ATION: Alexandru WILLAMS PHYSICAL 37329 [facility] 7 EVALU[facility]IO [facility] [place] COMPLEX 20 MINS NONEMERGE A0130 [facility] 7 INC TRANSPORT TRANSPORT REGION 9 ATION CO ATION: Alexandru WILLAMS NONEMERGE A0130 [facility] 7 INC TRANSPORT TRANSPORT REGION 9 ATION CO ATION: Alexandru WILLAMS NONEMERGE A0130 [facility] 7 INC COMMUNITY TRANSPORT REGION 9 ACTION_I ATION: MARYCRUZ Vanegas VAN INJECTION J1642 ST [facility] HEPARIN 7 BARBARA BARBARA SODIUM PER 10 HEALTHCAR HEALTHCAR UNITS E EDGE E EDGE THER [address] PROPH/DX 7 BARBARA BARBARA NJX IV PUSH HEALTHCAR HEALTHCAR SINGLE/1S E EDGE E EDGE T SBST/DRUG ECG [address] ROUTINE 7 BARBARA BARBARA ECG W/LEAST HEALTHCAR HEALTHCAR 12 LDS E EDGE E EDGE TRCG ONLY W/O I&R BASIC [address] METABOLIC 7 BARBARA BARBARA PANEL CALCIUM HEALTHCAR HEALTHCAR TOTAL E EDGE E EDGE COLLECTIO [address] N VENOUS 7 BARBARA BARBARA BLOOD VENIPUNCT HEALTHCAR HEALTHCAR URE E EDGE E EDGE ECG [address] ST JAJA ROUTINE 7 BARBARA ECG MED CTR W/LEAST 12 LDS I&R ONLY RADIOLOGI 64505 RADIOLOGY DOERGER C EXAM 7 CHEST 2 ASSOCIATE VIEWS S OF [facility] [place]ONT[place] [address] TROPONIN 7 BARBARA BARBARA QUANTITAT SURENDRA HEALTHCAR HEALTHCAR E EDGE E EDGE BLOOD [address] COUNT 7 BARBARA BARBARA COMPLETE AUTO&AUTO HEALTHCAR HEALTHCAR [place] [address] INFUSION 7 BARBARA BARBARA HYDRATION EACH HEALTHCAR HEALTHCAR [place] [address] LACTATE 7 BARBARA BARBARA HEALTHCAR HEALTHCAR E EDGE E EDGE NONEMERGE A0130 [facility] 7 INC TRANSPORT TRANSPORT REGION 9 ATION CO ATION: Alexandru WILLAMS AMB A0427 SHAI SHAI SERVICE 7 CO CO ALS AMBULANCE AMBULANCE EMERGENCY TAXIN TAXIN TRANSPORT LEVEL 1 RADIOLOGI 86919 RADIOLOGY DOERGER C EXAM 7 CHEST 2 ASSOCIATE VIEWS S OF [facility] FRONTAL&L ATERAL GROUND A0425 SHAI SHAI MILEAGE 7 CO CO PER AMBULANCE AMBULANCE STATUTE TAXIN TAXIN MILE IRRIGAJ 03184 [facility] IMPLNTD 7 BARBARAJOSAFAT BATISTABETH VENOUS ACCESS HEALTHCAR HEALTHCAR DRUG E EDGE E EDGE DELIVERY SYST NONEMERGE A0130 [facility] 7 INC TRANSPORT TRANSPORT REGION 9 ATION CO ATION: Alexandru WILLAMS HEPATITIS G0472 [facility] C ABO SC 7 BARBARA BARBARA IND HIGH RISK&OTH HEALTHCAR HEALTHCAR CVRD E EDGE E EDGE INDIC NONEMERGE A0130 [facility] 7 INC TRANSPORT TRANSPORT REGION 9 ATION CO ATION: Alexandru WILLAMS HEPATIC 49756 [facility] FUNCTION 7 BARBARA BARBARA PANEL HEALTHCAR HEALTHCAR E EDGE E EDGE LIPID 64773 [facility] PANEL 7 BARBARA BARBARA HEALTHCAR HEALTHCAR E EDGE E EDGE IRRIGAJ 28903 [facility] IMPLNTD 7 BARBARA BARBARA VENOUS ACCESS HEALTHCAR HEALTHCAR DRUG E EDGE E EDGE DELIVERY SYST COLLECTIO 17353 [facility] N VENOUS 7 BARBARA BARBARA BLOOD VENIPUNCT HEALTHCAR HEALTHCAR URE E EDGE E EDGE BLOOD 14108 [facility] COUNT 7 BARBARA BARBARA COMPLETE AUTO&AUTO HEALTHCAR HEALTHCAR DIFRNTL E EDGE E EDGE WBC NONEMERGE A0130 [facility] 7 INC TRANSPORT TRANSPORT REGION 9 ATION CO ATION: Alexandru WILLAMS COMPREHEN 90221 [facility] SIVE 7 BARBARA BARBARA METABOLIC PANEL HEALTHCAR HEALTHCAR E EDGE E EDGE INJECTION J0131 [facility] 7 BARBARA BARBARA ACETAMINO PHEN 10 HEALTHCAR HEALTHCAR MG E EDGE E EDGE INJECTION J2250 [facility] MID[facility]OLAM HCL PER HEALTHCAR HEALTHCAR 1 MG E EDGE E EDGE NONEMERGE A0130 [facility] 7 INC TRANSPORT TRANSPORT REGION 9 ATION CO ATION: Alexandru SANTA 60928 ANESTHESI CAMILLI UPPER GI 7 A GROUP ENDOSCOPY PRACTICE PROXIMAL TO DUODENUM EGD [address] PERCUTANE 7 BARBARA BARBARA OUS PLACEMENT HEALTHCAR HEALTHCAR E EDGE E EDGE GASTROSTO MY TUBE INJECTION J0295 ST ST AMPCLLN 7 BARBARA BARBARA SODIUM/JANE LBACTAM HEALTHCAR HEALTHCAR SODIUM-1. E EDGE E EDGE 5 G NONEMERGE A0130 [facility] 7 INC TRANSPORT TRANSPORT REGION 9 ATION CO ATION: Alexandru WILLAMS NONEMERGE A0130 [facility] 6 INC TRANSPORT TRANSPORT REGION 9 ATION CO ATION: Alexandru WILLAMS NONEMERGE A0130 [facility] 6 INC TRANSPORT TRANSPORT REGION 9 ATION CO ATION: Alexandru WILLAMS MOTION [address] FLUOR 6 BARBARA BARBARA EVAL MED CTR MED CTR SWLNG JUICE SCALEMAN ST J[place] ST FUNCJ C/[place] [address] SWALLOWIN 6 BARBARA BARBARA G MED CTR MED CTR DYSFUNCTI JUICE SCALEMAN ST JUICE SCALEMAN ST ON&/ORAL FUNCJ FEEDING SWALLOWIN [address] G FUNCJ 6 BARBARA BARBARA W/CINERAD MED CTR MED CTR IOGRAPY/V JUICE SCALEMAN ST JUICE SCALEMAN ST IDRADIOG LOCM Q9967 ST ST 300-399 6 BARBARA BARBARA MG/ML MED CTR MED CTR IODINE JUICE SCALEMAN ST JUICE SCALEMAN ST CONCENTRA TION PER ML CT SOFT 14063 RADIOLOGY WELLS SEA TISSUE 6 NECK ASSOCIATE W/CONTRAS S OF NOTH T MATERIAL INJECTION J1642 ST ST HEPARIN 6 BARBARA BARBARA SODIUM MED CTR MED CTR PER [address] UNITS CREATININ [address] E BLOOD 6 BARBARA BARBARA MED CTR MED CTR JUICE SCALEMAN ST JUICE SCALEMAN ST CT THORAX 50883 RADIOLOGY TONY 6 NORA W/CONTRAS ASSOCIATE T S OF NOT MATERIAL THER 65208 [place] [facility] PROPH/DX 6 [facility] NJX IV INC INC PUSH SINGLE/1S T SBST/DRUG COMPREHEN 80455 [place] [facility] SIVE 6 [facility] METABOLIC INC INC PANEL DRUG 84448 [facility] SCREEN 6 [facility] QUANTITAT INC INC SURENDRA LEVETIRAC ETAM CREATINE 81121 [facility] KINASE 6 [place] [address] [facility] HEAD/BRAI 6 [facility] N W/O INC INC CONTRAST MATERIAL RADIOLOGI 63061 [place] [facility] C 6 [facility] EXAMINATI INC INC ON CHEST SINGLE VIEW FRONTAL DRUG TEST G0481 [facility] DEFINITV [address] ID INC INC METH P DAY 8-14 DRUG CL GROUND A0425 SHAI SHAI MILEAGE 6 CO CO PER AMBULANCE AMBULANCE STATUTE TAXIN TAXIN MILE AMBULANCE A0429 SHAI SHAI SERVICE 6 CO CO BLS AMBULANCE AMBULANCE EMERGENCY TAXIN TAXIN TRANSPORT BLOOD 83993 [facility] COUNT 6 [facility] COMPLETE INC INC AUTO&[place] [address] [place] [facility] TROPONIN 6 [facility] QUANTITAT INC INC SURENDRA URNLS DIP 33932 [place] [facility] 6 [facility] STICK/TAB INC INC LET REAGENT AUTO MICROSCOP Y CREATINE 49155 [place] [facility] KINASE MB 6 [facility] FRACTION INC INC ONLY HOSPITAL G[address] [facility] ST OUTPATIEN 6 BARBARARED JIMENEZ T CLIN MED CTR MED CTR VISIT JUICE SCALEMAN ST JUICE SCALEMAN ST ASSESS & MGMT PT NONEMERGE A0130 [facility] 6 INC TRANSPORT TRANSPORT REGION 9 ATION CO ATION: L MARYCRUZ WILLAMS NONEMERGE A0130 [facility] 6 INC TRANSPORT TRANSPORT REGION 9 ATION CO ATION: L WHEELCHAI R VAN PWR WC E2361 PATIENT PATIENT ACSS 22NF 6 AIDS INC AIDS INC SEALED LEAD ACID BATTRY EA REPR/SRVC K0739 PATIENT PATIENT DME NOT 6 AIDS INC AIDS INC O2 RQR TECH CMPNT PER 15 MINS NONEMERGE A0130 [facility] 6 INC TRANSPORT TRANSPORT REGION 9 ATION CO ATION: Alexandru WILLAMS NONEMERGE A0130 [facility] 6 INC TRANSPORT TRANSPORT REGION 9 ATION CO ATION: Alexandru WILLAMS INJECTION J1642 [facility] HEPARIN 6 BARBARA BARBARA SODIUM MED CTR MED CTR PER [address] UNITS IRRIGAJ [address] IMPLNTD 6 BARBARA BARBARA VENOUS MED CTR MED CTR ACCESS JUICE SCALEMAN ST JUICE SCALEMAN ST DRUG DELIVERY SYST LARYNGOSC 82292 HEAD & KEMPINERS OPY 6 NECK JAM FLEXIBLE SURGERY DIAGNOSTI ASSOC C NONEMERGE A0130 [facility] 6 INC TRANSPORT TRANSPORT REGION 9 ATION CO ATION: Alexandru WILLAMS NONEMERGE A0130 [facility] 6 INC TRANSPORT TRANSPORT REGION 9 ATION CO ATION: Alexandru WILLAMS IM ADM [id number] [facility] PRQ ID 6 BARBARA TRO SUBQ/IM NJXS 1 PHYSICIAN VACCINE S IIV4 VACC 46570 [facility] PRESRV 6 BARBARA TRO FREE 0.5 ML FOR IM PHYSICIAN USE S NONEMERGE A0130 [facility] 6 INC TRANSPORT TRANSPORT REGION 9 ATION CO ATION: Alexandru WILLAMS NONEMERGE A0130 [facility] 6 INC TRANSPORT TRANSPORT REGION 9 ATION CO ATION: Alexandru WILLAMS LIPID [address] PANEL 6 BARBARA BARBARA MED CTR MED CTR JUICE SCALEMAN ST JUICE SCALEMAN ST HEPATIC [address] FUNCTION 6 BARBARA BARBARA PANEL MED CTR MED CTR JUICE SCALEMAN ST JUICE SCALEMAN ST NONEMERGE A0130 [facility] 6 INC TRANSPORT TRANSPORT REGION 9 ATION CO ATION: Alexandru WILLAMS NONEMERGE A0130 [facility] 6 INC TRANSPORT TRANSPORT REGION 9 ATION CO ATION: Alexandru Vanegas VAN NONEMERGE A0130 [facility] 6 INC TRANSPORT TRANSPORT REGION 9 ATION CO ATION: Alexandru WILLAMS NONEMERGE A0130 [facility] 6 INC TRANSPORT TRANSPORT REGION 9 ATION CO ATION: Alexandru Vanegas VAN NONEMERGE A0130 [facility] 6 INC TRANSPORT TRANSPORT REGION 9 ATION CO ATION: Alexandru WILLAMS NONEMERGE A0130 [facility] 6 INC TRANSPORT TRANSPORT REGION 9 ATION CO ATION: Alexandru WILLAMS NONEMERGE A0130 [facility] 6 INC TRANSPORT TRANSPORT REGION 9 ATION CO ATION: Alexandru WILLAMS ANES 14532 ANESTHESI MUCENSKI ESOPH 6 A GROUP CAT THYRD PRACTICE LARYNX TRACH & LYMPH NECK 1YR LARYNGOSC 80847 HEAD & KEMPINERS OPY W/WO 6 NECK TRACHEOSC SURGERY OPY DX ASSOC EXCEPT NONEMERGE A0130 [facility] 6 INC TRANSPORT TRANSPORT REGION 9 ATION CO ATION: Alexandru WILLAMS NONEMERGE A0130 [facility] 6 INC TRANSPORT TRANSPORT REGION 9 ATION CO ATION: Alexandru Vanegas VAN ECG [address] MCDANNOLD ROUTINE [address] ECG MED CTR W/LEAST 12 LDS I&R ONLY PPSV23 [address] [facility] VACCINE 2 6 BARBARA TRO YRS OR OLDER FOR PHYSICIAN SUBQ/IM S USE HEPATIC [address] FUNCTION 6 [facility] BARBAR[facility] PANEL MED CTR MED CTR JUICE SCALEMAN ST JUICE SCALEMAN ST LIPID [address] PANEL 6 [facility] BARBARA MED CTR MED CTR JUICE SCALEMAN ST JUICE SCALEMAN ST NONEMERGE A0130 [facility] 6 INC TRANSPORT TRANSPORT REGION 9 ATION CO ATION: Alexandru WILLAMS IM ADM [address] ST ELROY PRQ ID 6 BARBARA TRO SUBQ/IM NJXS 1 PHYSICIAN VACCINE S NONEMERGE A0130 [facility] 6 INC TRANSPORT TRANSPORT REGION 9 ATION CO ATION: Alexandru WILLAMS NONEMERGE A0130 [facility] 6 INC TRANSPORT TRANSPORT REGION 9 ATION CO ATION: Alexandru WILLAMS SWALLOWIN [address] G FUNCJ 6 BARBARA BARBARA W/CINERAD MED CTR MED CTR IOGRAPY/V JUICE SCALEMAN ST JUICE SCALEMAN ST IDRADIOG MOTION [address] FLUOR 6 BARBARA BARBARA EVAL MED CTR MED CTR SWLNG JUICE SCALEMAN ST JUICE SCALEMAN ST FUNCJ C/V REC INJECTION [id number] ST ST HEPARIN 6 BARBARA BARBARA SODIUM MED CTR MED CTR PER [address] JUICE [address] UNITS CT THORAX [address] 6 BARBARA BARBARA W/CONTRAS MED CTR MED CTR T JUICE SCALEMAN ST JUICE SCALEMAN ST MATERIAL NONEMERGE A0130 [facility] 6 INC TRANSPORT TRANSPORT REGION 9 ATION CO ATION: Alexandru WILLAMS CT SOFT [address] TISSUE 6 BARBARA BARBARA NECK MED CTR MED CTR W/CONTRAS JUICE SCALEMAN ST JUICE SCALEMAN ST T MATERIAL LOCM Q9967 ST ST [phone] 6 BARBARA BARBARA MG/ML MED CTR MED CTR IODINE JUICE SCALEMAN ST JUICE SCALEMAN ST CONCENTRA TION PER ML NONEMERGE A0130 [facility] 6 INC TRANSPORT TRANSPORT REGION 9 ATION CO ATION: Alexandru WILLAMS LARYNGOSC 16000 HEAD & KEMPINERS OPY 6 NECK JAM FLEXIBLE SURGERY DIAGNOSTI ASSOC C NONEMERGE A0130 [facility] 6 INC TRANSPORT TRANSPORT REGION 9 ATION CO ATION: Alexandru Vanegas VAN COMPRE 26214 HEAD & BATTA BROWN AUDIOMETR 6 NECK Y SURGERY THRESHOLD ASSOC EVAL SP RECOGNIJ TYMPANOME 15944 HEAD & BATTA BROWN TRY 6 NECK SURGERY ASSOC NONEMERGE A0130 [facility] 6 INC TRANSPORT TRANSPORT REGION 9 ATION CO ATION: Alexandru WILLAMS RADIOLOGI 33095 RADIOLOGY BUNCH C EXAM 6 BRA CHEST 2 ASSOCIATE VIEWS S OF [facility] FRONTAL&L ATERAL NONEMERGE A0130 [facility] 6 INC TRANSPORT TRANSPORT REGION 9 ATION CO ATION: Alexandru WILLAMS NONEMERGE A0130 [facility] 6 INC TRANSPORT TRANSPORT REGION 9 ATION CO ATION: Alexandru WILLAMS NONEMERGE A0130 [facility] 6 INC TRANSPORT TRANSPORT REGION 9 ATION CO ATION: Alexandru WILLAMS COMPREHEN 70450 ONCOLOGY CALLI SIVE 6 HEMATOLOG LAW METABOLIC Y CARE, PANEL IN BLOOD 66432 ONCOLOGY CALLI COUNT 6 HEMATOLOG LAW COMPLETE Y CARE, AUTO&AUTO IN DIFRNTL WBC COLLECTIO 32682 ONCOLOGY CALLI N 6 HEMATOLOG LAW CAPILLARY Y CARE, BLOOD IN SPECIMEN DETERMINA [address], REFRACTIV OD, PSC E STATE NONEMERGE A0130 [facility] 5 INC TRANSPORT TRANSPORT REGION 9 ATION CO ATION: Alexandru WILLAMS OPHTH [address], XM&EVAL OD, PSC COMPRHNSV ESTAB PT 1/> ADLT SZD [id number] PERSONAL PERSONAL DISPBL 5 TOUCH TOUCH INCONT HOME PENITENTIARY CARE PROD OF OF UNDWEAR XTRA LG EA NONEMERGE A0130 LKLP CAC BENNETTS NCY 5 INC TRANSPORT TRANSPORT REGION 9 ATION CO ATION: Alexandru MAEAApolinar 39165 ONCOLOGY EUGENIA MICAH IMPLNTD 5 HEMATOLOG VENOUS Y CARE, ACCESS IN DRUG DELIVERY SYST REMOVAL 25299 HEAD & KEMPINERS IMPACTED 5 NECK JAM CERUMEN SURGERY INSTRUMEN ASSOC TATION UNILAT LARYNGOSC 11845 HEAD & KEMPINERS OPY 5 NECK JAM FLEXIBLE SURGERY DIAGNOSTI ASSOC C NONEMERGE A0130 L[facility] CAC [facility] NCY 5 INC TRANSPORT TRANSPORT REGION 9 ATION CO ATION: Alexandru WILLAMS NONEMERGE A0130 LKLP CAC [facility] NCY 5 INC TRANSPORT TRANSPORT REGION 9 ATION CO ATION: Alexandru WILLAMS NONEMERGE A0130 [facility] NCY 5 INC TRANSPORT TRANSPORT REGION 9 [place]ION [place]: [place] [address] SURG 5 BARBARA JIMENEZ PATHOLOGY MED CTR MED CTR JUICE SCALEMAN ST JUICE SCALEMAN ST GROSS&AP [place]COPIC [place]AM [place] [address] W/RMVL 5 BARBARA JIMENEZ OF TUMOR POLYP PHYSICIAN PHYSICIAN LESION S END S END SNARE TQ NONEMERGE A0130 [facility] NC[facility] 5 INC TRANSPORT TRANSPORT REGION 9 ATION CO ATION: Alexandru WILLAMS NONEMERGE A0130 [facility] CAC [facility] NCY 5 INC TRANSPORT TRANSPORT REGION 9 ATION CO ATION: Alexandru WILLAMS NONEMERGE A0130 L[facility] CAC [facility] NCY 5 INC TRANSPORT TRANSPORT REGION 9 ATION CO ATION: Alexandru WILLAMS NONEMERGE A0130 L[facility] CAC [facility] NCY 5 INC TRANSPORT TRANSPORT REGION 9 ATION CO ATION: Alexandru WILLAMS NONEMERGE A0130 [facility] CAC [facility] NCY 5 INC TRANSPORT TRANSPORT REGION 9 ATION CO ATION: Alexandru WILLAMS IRRIGAJ 35956 ONCOLOGY CALLI IMPLNTD 5 HEMATOLOG LAW VENOUS Y CARE, ACCESS IN DRUG DELIVERY SYST ADLT SZD T4528 PERSONAL PERSONAL DISPBL 5 TOUCH TOUCH INCONT HOME PENITENTIARY CARE PROD OF OF UNDWEAR XTRA LG EA ADLT SZD T4528 PERSONAL PERSONAL DISPBL 5 TOUCH TOUCH INCONT HOME PENITENTIARY CARE PROD OF OF UNDWEAR XTRA LG EA NONEMERGE A0130 LK[facility] CAC [facility] NCY 5 INC TRANSPORT TRANSPORT REGION 9 ATION CO ATION: Alexandru MAEAApolinar 84549 ONCOLOGY EUGENIA MICAH IMPLNTD 5 HEMATOLOG VENOUS Y CARE, ACCESS IN DRUG DELIVERY SYST LARYNGOSC 32046 HEAD & KEMPINERS OPY 5 NECK JAM FLEXIBLE SURGERY DIAGNOSTI ASSOC C NONEMERGE A0130 L[facility] CAC [facility] NCY 5 INC TRANSPORT TRANSPORT REGION 9 ATION CO ATION: Alexandru WILLAMS RADEX [address] FOOT 5 BARBARA BARBARA COMPLETE MED CTR MED CTR MINIMUM [address] VIEWS NONEMERGE A0130 [facility] NC[facility] 5 INC TRANSPORT TRANSPORT REGION 9 ATION CO ATION: Alexandru WILLAMS RADIOLOGI [address] C EXAM 5 BARBARA BARBARA CHEST 2 MED CTR MED CTR VIEWS JUICE SCALEMAN ST JUICE SCALEMAN ST FRONTAL&L ATERAL NONEMERGE A0130 [facility] NCY 5 INC TRANSPORT TRANSPORT REGION 9 ATION CO ATION: Alexandru WILLAMS ADLT SZD T4528 PERSONAL PERSONAL DISPBL 5 TOUCH TOUCH INCONT HOME PENITENTIARY CARE PROD OF OF UNDWEAR XTRA LG EA NONEMERGE A0130 [facility] NC[facility] 5 INC TRANSPORT TRANSPORT REGION 9 ATION CO ATION: Alexandru WILLAMS PWR WC E2361 PATIENT PATIENT ACSS 22NF 5 AIDS INC AIDS INC SEALED LEAD ACID BATTRY EA REPR/SRVC K0739 PATIENT PATIENT DME NOT 5 AIDS INC AIDS INC O2 RQR TECH CMPNT PER 15 MINS NONEMERGE A0130 [facility] 5 INC TRANSPORT TRANSPORT REGION 9 ATION CO ATION: Alexandru FERREIRA 14001 ONCOLOGY CALLI SIVE 5 HEMATOLOG LAW METABOLIC Y CARE, PANEL IN BLOOD 41798 ONCOLOGY CALLI COUNT 5 HEMATOLOG LAW COMPLETE Y CARE, AUTO&AUTO IN DIFRNTL WBC NONEMERGE A0130 [facility] 5 INC TRANSPORT TRANSPORT REGION 9 ATION CO ATION: Alexandru WILLAMS ADLT SZD T4528 PERSONAL PERSONAL DISPBL 5 TOUCH TOUCH INCONT HOME PENITENTIARY CARE PROD OF OF UNDWEAR XTRA LG EA NONEMERGE A0130 [facility] NC[facility] 5 INC TRANSPORT TRANSPORT REGION 9 ATION CO ATION: Alexandru WILLAMS GLUC BLD [address] GLUC MNTR 5 BARBARA BARBARA DEV MED CTR MED CTR CLEARED JUICE SCALEMAN ST JUICE [place] [address] IMAGING [address] MED CTR MED CTR ATTENUATI JUICE SCALEMAN ST JUICE SCALEMAN ST ON SKULL BASE MID-THIGH IRRIGAJ 30683 ONCOLOGY LUCINDA IMPLNTD 5 HEMATOLOG N ISAIAH VENOUS Y CARE, ACCESS IN DRUG DELIVERY SYST NONEMERGE A0130 [facility] 5 INC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 ST JUICE SCALEMAN ST FLDS PLACEMENT THERAPEUT 89308 BRIDGE BRIDGE ACTVITY 4 POINT POINT DIRECT PT CARE & CARE & CONTACT REHABILI REHABILI EACH 15 [place] [address] BRIDGE BRIDGE 1/> AREAS 4 PO[place]INT EA 15 CARE & CARE & MIN GAIT REHABILI REHABILI TRAINJ W/STAIR THERAPEUT 04244 BRIDGE BRIDGE IC PX 1/> 4 POINT POINT AREAS CARE & CARE & EACH 15 REHABILI REHABILI MIN EXERCISES RADIATION 10167 ONCOLOGY MORENO PRA 4 HEMATOLOG TREATMENT Y CARE, IN MANAGEMEN T 5 TREATMENT S THERAPEUT 55447 BRIDGE BRIDGE IC PX 1/> 4 POINT POINT AREAS CARE & CARE & EACH 15 [place] [address] BRIDGE BRIDGE 1/> AREAS 4 [place] EACH 15 CARE & CARE & MIN REHABILI REHABILI NEUROMUSC REEDUCA THERAPEUT 92940 BRIDGE BRIDGE ACTVITY 4 POINT POINT DIRECT PT CARE & CARE & CONTACT REHABILI REHABILI EACH [address] TREATMENT 4 BARBARA BARBARA MED CTR MED CTR PROCEDURE JUICE SCALEMAN ST JUICE SCALEMAN ST NTSTY [address] MODUL 4 BARBARA BARBARA DLVR MED CTR MED CTR 1/FURNACE FILLER JUICE SCALEMAN ST JUICE SCALEMAN ST FLDS/[place] [address] GUIDANCE 4 BARBARA BARBARA RADIATION MED CTR MED CTR THERAPY JUICE SCALEMAN ST JUICE SCALEMAN ST FLDS PLACEMENT NONEMERGE A0130 LKLP CAC LKLP NCY 4 INC COMM[facility] TRANSPORT REGION 9 ACTION_I ATION: MARYCRUZ WILLAMS NONEMERGE A0130 LKLP CAC LKLP NCY 4 INC [facility] TRANSPORT REGION 9 ACTION_[place]: [place] [address] GUIDANCE 4 BARBARA BARBARA RADIATION MED CTR MED CTR THERAPY JUICE SCALEMAN ST JUICE SCALEMAN ST FLDS PLACEMENT NTSTY [address] MODUL 4 BARBARA BARBARA DLVR MED CTR MED CTR 1/FURNACE FILLER JUICE SCALEMAN ST JUICE SCALEMAN ST FLDS/ARCS [place] BLOOD 25860 ONCOLOGY CALLI COUNT 4 HEMATOLOG LAW COMPLETE Y CARE, AUTO&AUTO IN DIFRNTL WBC CONTINUIN [address] ST [address] G MEDICAL 4 BARBARA BARBARA PHYSICS MED CTR MED CTR CONSLTJ JUICE SCALEMAN ST JUICE SCALEMAN ST [place] WK COMPREHEN 45501 ONCOLOGY ONCOLOGY SIVE 4 HEMATOLOG HEMATOLOG METABOLIC Y CARE, Y CARE, PANEL IN [place] NTSTY [address] MODUL 4 BARBARA BARBARA DLVR MED CTR MED CTR 1/FURNACE FILLER JUICE SCALEMAN ST JUICE SCALEMAN ST FLDS/[place] [address] GUIDANCE 4 BARBARA BARBARA RADIATION MED CTR MED CTR THERAPY JUICE SCALEMAN ST JUICE SCALEMAN ST FLDS PLACEMENT NONEMERGE A0130 LKLP CAC LKLP NCY 4 INC COMMUNITY TRANSPORT REGION 9 ACTION_I ATION: MARYCRUZ WILLAMS NONEMERGE A0130 LKLP CAC LKLP NCY 4 INC COMMUNITY TRANSPORT REGION 9 ACTION_[place]: [place] [address] GUIDANCE 4 BARBARA BARBARA RADIATION MED CTR MED CTR THERAPY JUICE SCALEMAN ST JUICE SCALEMAN ST FLDS PLACEMENT NTSTY [address] MODUL 4 BARBARA BARBARA DLVR MED CTR MED CTR 1/FURNACE FILLER JUICE SCALEMAN ST JUICE SCALEMAN ST FLDS/ARCS [place] [address] SIMULAJ-A 4 BARBARA BARBARA IDED MED CTR MED CTR FIELD JUICE SCALEMAN ST JUICE SCALEMAN ST SETTING SIMPLE THERAPEUT 21594 BRIDGE BRIDGE IC PX 1/> 4 POINT POINT AREAS CARE & CARE & EACH 15 [place] [address] BRIDGE BRIDGE 1/> AREAS 4 PO[place] POINT EA 15 CARE & CARE & MIN GAIT REHABILI REHABILI TRAINJ W/STAIR THERAPEUT 94341 BRIDGE BRIDGE ACTVITY 4 POINT POINT DIRECT PT CARE & CARE & CONTACT REHABILI REHABILI EACH 15 MIN THERAPEUT 49775 BRIDGE BRIDGE IC PX 1/> 4 POINT POINT AREAS CARE & CARE & EACH 15 [place] [address] BRIDGE BRIDGE 1/> AREAS 4 PO[place]INT EA 15 CARE & CARE & MIN GAIT REHABILI REHABILI TRAINJ W/STAIR THERAPEUT 81565 BRIDGE BRIDGE IC PX 1/> 4 POINT POINT AREAS CARE & CARE & EACH 15 REHABILI REHABILI MIN EXERCISES THERAPEUT 65391 BRIDGE BRIDGE IC PX 1/> 4 POINT POINT AREAS CARE & CARE & EACH 15 REHABILI REHABILI MIN EXERCISES SELF-CARE 85734 BRIDGE BRIDGE /HOME 4 POINT POINT MGMT CARE & CARE & TRAINING REHABILI REHABILI EACH 15 [place] [address] BRIDGE BRIDGE 1/> AREAS 4 PO[place] POINT EA 15 CARE & CARE & MIN GAIT REHABILI REHABILI TRAINJ W/STAIR SPEC [address] MEDICAL 4 BARBARA JIMENEZ RADJ MED CTR MED CTR PHYSICS JUICE SCALEMAN ST JUICE SCALEMAN ST CONSLTJ MLC IMRT [address] DESIGN & 4 BARBARAJOSAFAT [facility] MED CTR ION PER JUICE SCALEMAN ST [place] [address] BRIDGE BRIDGE 1/> AREAS 4 PO[place] EA 15 CARE & CARE & MIN GAIT REHABILI REHABILI TRAINJ W/STAIR THERAPEUT 46945 BRIDGE BRIDGE ACTVITY 4 POINT POINT DIRECT PT CARE & CARE & CONTACT REHABILI REHABILI EACH [address] RADIATION 4 BARBARAJOSAFAT VITALETH MED CTR MED CTR DOSIMETRY JUICE SCALEMAN ST JUICE SCALEMAN ST CALCULATI ON NTSTY [address] ST [address] MODUL 4 BARBARA BARBARA RADTHX MED CTR MED CTR PLN JUICE SCALEMAN ST JUICE SCALEMAN ST DOSE-VOL HISTOS THERAPEUT 95096 BRIDGE BRIDGE IC PX 1/> 4 POINT POINT AREAS CARE & CARE & EACH 15 REHABILI REHABILI MIN EXERCISES THERAPEUT 79826 BRIDGE BRIDGE IC PX 1/> 4 POINT POINT AREAS CARE & CARE & EACH 15 [place] [address] BRIDGE BRIDGE 1/> AREAS 4 [place]INT EACH 15 CARE & CARE & MIN REHABILI [place] [address] BRIDGE BRIDGE 1/> AREAS 4 PO[place]INT EA 15 CARE & CARE & MIN GAIT REHABILI REHABILI TRAINJ W/[place] [address] BRIDGE BRIDGE SWALLOWIN 4 POINT POINT G CARE & CARE & DYSFUNCTI REHABILI REHABILI ON&/[place] [address] BRIDGE BRIDGE SWALLOWIN 4 POINT POINT G CARE & CARE & DYSFUNCTI REHABILI REHABILI ON&/[place] [address] BRIDGE BRIDGE 1/> AREAS 4 PO[place]INT EA 15 CARE & CARE & MIN GAIT REHABILI REHABILI TRAINJ W/STAIR THERAPEUT 64026 BRIDGE BRIDGE IC PX 1/> 4 POINT POINT AREAS CARE & CARE & EACH 15 [place] [address] BRIDGE BRIDGE SWALLOWIN 4 POINT POINT G CARE & CARE & DYSFUNCTI REHABILI REHABILI ON&/[place] [address] BRIDGE CUMBERLAN 1/> AREAS 4 [place] EACH 15 CARE & BEHAVIORA MIN REHABILI L NEUROMUSC REEDUCA THERAPEUT 75414 BRIDGE BRIDGE IC PX 1/> 4 POINT POINT AREAS CARE & CARE & EACH 15 REHABILI REHABILI MIN EXERCISES SELF-CARE 56272 BRIDGE BRIDGE /HOME 4 POINT POINT MGMT CARE & CARE & TRAINING REHABILI REHABILI EACH 15 [place] [address] BRIDGE BRIDGE 1/> AREAS 4 [place] EA 15 CARE & CARE & MIN GAIT REHABILI REHABILI TRAINJ W/[place] [address] BRIDGE CUMBERLAN 1/> AREAS 4 [place] EA 15 CARE & BEHAVIORA MIN GAIT REHABILI L TRAINJ W/STAIR THERAPEUT 71184 BRIDGE BRIDGE ACTVITY 4 POINT POINT DIRECT PT CARE & CARE & CONTACT REHABILI REHABILI EACH 15 MIN THERAPEUT 45818 BRIDGE BRIDGE IC PX 1/> 4 POINT POINT AREAS CARE & CARE & EACH 15 [place] [address] BRIDGE BRIDGE SWALLOWIN 4 POINT POINT G CARE & CARE & DYSFUNCTI REHABILI REHABILI ON&/[place] [address] BRIDGE BRIDGE SWALLOWIN 4 POINT POINT G CARE & CARE & DYSFUNCTI REHABILI REHABILI ON&/ORAL FUNCJ FEEDING THERAPEUT 78554 BRIDGE BRIDGE IC PX 1/> 4 POINT POINT AREAS CARE & CARE & EACH 15 [place] [address] BRIDGE BRIDGE 1/> AREAS 4 [place]INT EACH 15 CARE & CARE & MIN REHABILI REHABILI NEUROMUSC REEDUCA SELF-CARE 94849 BRIDGE BRIDGE /HOME 4 POINT POINT MGMT CARE & CARE & TRAINING REHABILI REHABILI EACH 15 [place] [address] BRIDGE BRIDGE 1/> AREAS 4 [place] EA 15 CARE & CARE & MIN GAIT REHABILI REHABILI TRAINJ W/[place] [address] BRIDGE BRIDGE 1/> AREAS 4 [place] EA 15 CARE & CARE & MIN GAIT REHABILI REHABILI TRAINJ W/STAIR SELF-CARE 67719 BRIDGE BRIDGE /HOME 4 POINT POINT MGMT CARE & CARE & TRAINING REHABILI REHABILI EACH 15 MINUTES THERAPEUT 94338 BRIDGE BRIDGE IC PX 1/> 4 POINT POINT AREAS CARE & CARE & EACH 15 [place] [address] BRIDGE BRIDGE SWALLOWIN 4 POINT POINT G CARE & CARE & DYSFUNCTI REHABILI REHABILI ON&/[place] [address] BRIDGE BRIDGE SWALLOWIN 4 POINT POINT G CARE & CARE & DYSFUNCTI REHABILI REHABILI ON&/ORAL FUNCJ FEEDING THERAPEUT 93926 BRIDGE BRIDGE IC PX 1/> 4 POINT POINT AREAS CARE & CARE & EACH 15 REHABILI REHABILI MIN EXERCISES SELF-CARE 71272 BRIDGE BRIDGE /HOME 4 POINT POINT MGMT CARE & CARE & TRAINING REHABILI REHABILI EACH 15 [place] [address] BRIDGE BRIDGE 1/> AREAS 4 [place]INT EA 15 CARE & CARE & MIN GAIT REHABILI REHABILI TRAINJ W/STAIR THERAPEUT 23249 ONCOLOGY JOSH STRAUSS IC 4 HEMATOLOG RADIOLOGY Y CARE, TX IN PLANNING COMPLEX THERAPEUT 15013 BRIDGE BRIDGE ACTVITY 4 POINT POINT DIRECT PT CARE & CARE & CONTACT REHABILI REHABILI EACH 15 [place] 55054 ONCOLOGY JOSH STRAUSS SIMULAJ-A 4 HEMATOLOG IDED [place], [place] [address] DEVICES 4 BARBARA JIMENEZ DESIGN & MED CTR MED CTR CONSTRUCT JUICE SCALEMAN ST JUICE SCALEMAN ST ION COMPLEX UNLIS [address] MEDICAL 4 BARBARA VITALETH RADJ MED CTR MED CTR DOSIM TX JUICE SCALEMAN [place] [address] RADIOLOGY [facility] GUIDANCE 4 RADIATION ASSOCIATE THERAPY S OF [facility] FLDS PLACEMENT THERAPEUT 03107 BRIDGE BRIDGE IC PX 1/> 4 POINT POINT AREAS CARE & CARE & EACH 15 REHABILI REHABILI MIN EXERCISES THERAPEUT 73305 BRIDGE BRIDGE IC PX 1/> 4 POINT POINT AREAS CARE & CARE & EACH 15 [place] [address] BRIDGE BRIDGE SWALLOWIN 4 POINT POINT G CARE & CARE & DYSFUNCTI REHABILI REHABILI ON&/ORAL FUNCJ FEEDING THERAPEUT 10404 BRIDGE BRIDGE ACTVITY 4 POINT POINT DIRECT PT CARE & CARE & CONTACT REHABILI REHABILI EACH [address] [place] [address] BRIDGE BRIDGE 1/> AREAS 4 [place] EA 15 CARE & CARE & MIN GAIT REHABILI REHABILI TRAINJ W/[place] [address] BRIDGE CUMBERLAN 1/> AREAS 4 [place] EA 15 CARE & BEHAVIORA MIN GAIT [place]HABIL[place] L TRAINJ W/[place] [address] BRIDGE BRIDGE SWALLOWIN 4 POINT POINT G CARE & CARE & DYSFUNCTI REHABILI REHABILI ON&/ORAL FUNCJ FEEDING THERAPEUT 56765 BRIDGE BRIDGE IC PX 1/> 4 POINT POINT AREAS CARE & CARE & EACH 15 REHABILI REHABILI MIN EXERCISES THERAPEUT 82260 BRIDGE BRIDGE IC PX 1/> 4 PO[place] POINT AREAS CARE & CARE & EACH 15 [place] [address] BRIDGE BRIDGE SWALLOWIN 4 POINT POINT G CARE & CARE & DYSFUNCTI REHABILI REHABILI ON&/[place] [address] BRIDGE BRIDGE 1/> AREAS 4 [place] EA 15 CARE & CARE & MIN GAIT REHABILI REHABILI TRAINJ W/STAIR THERAPEUT 86272 BRIDGE CUMBERLAN ACTVITY 4 [place] DIRECT PT CARE & BEHAVIORA CONTACT REHABILI L EACH 15 MIN TX SPEECH 46686 BRIDGE BRIDGE LANG 4 POINT POINT VOICE CARE & CARE & COMMJ REHABILI REHABILI &/CROWN IRONER Y PROC IND TX SPEECH 46373 BRIDGE BRIDGE LANG 4 [place]INT VOICE CARE & CARE & COMMJ REHABILI REHABILI &/CROWN IRONER Y PROC IND THERAPEUT 68937 BRIDGE BRIDGE ACTVITY 4 POINT POINT DIRECT PT CARE & CARE & CONTACT REHABILI REHABILI EACH [address] [place] [address] BRIDGE BRIDGE 1/> AREAS 4 [place] EA 15 CARE & CARE & MIN GAIT REHABILI REHABILI TRAINJ W/[place] [address] BRIDGE BRIDGE SWALLOWIN 4 POINT POINT G CARE & CARE & DYSFUNCTI REHABILI REHABILI ON&/ORAL FUNCJ FEEDING THERAPEUT 11403 BRIDGE BRIDGE IC PX 1/> 4 POINT POINT AREAS CARE & CARE & EACH 15 [place] [address] BRIDGE BRIDGE 1/> AREAS 4 [place] EACH 15 CARE & CARE & MIN REHABILI REHABILI NEUROMUSC REEDUCA SELF-CARE 61710 BRIDGE BRIDGE /HOME 4 POINT POINT MGMT CARE & CARE & TRAINING REHABILI REHABILI EACH 15 MINUTES PHYSICAL 31252 BRIDGE BRIDGE THERAPY 4 POINT POINT EVALUATIO CARE & CARE & N REHABILI REHABILI EVAL 23079 BRIDGE BRIDGE ORAL&PHAR 4 PO[place] YNGEAL CARE & CARE & SWLNG REHABILI REHABILI FUNCJ INITIAL 07719 JIBRINI JIBRINI NURSING [facility] CARE/DAY 45 MINUTES THERAPEUT 62293 BR[place] BR[place] ACTVITY 4 POINT POINT DIRECT PT CARE & CARE & CONTACT REHABILI REHABILI EACH 15 MIN OCCUPATIO 92498 BR[place] BR[place] NAL 4 [place] THERAPY CARE & CARE & EVALUATIO REHABILI REHABILI N ALVEOLOPL [address] ASTY 4 BARBARASARAH VITALETH FT [facility] ANESTHESI 82634 INDEPENDE CLAYBON A 4 NT LORENZO INTRAORAL ANESTHESI WITH OLOGIST BIOPSY NOS SBSQ 85480 [facility] 4 NECK JAM CARE/DAY SURG[place] [address] [place] [address] RADIOLOGY [facility]GOSTO BYR GUIDANCE 4 RADIATION ASSOCIATE [place] [address] ONCOLOGY JOSH STRAUSS DEVICES 4 HEMATOLOG DESIGN & Y CARE, CONSTRUCT IN ION COMPLEX [place]ER [place] 62400 ONCOLOGY JOSH STRAUSS SIMULAJ-A 4 HEMATOLOG IDED Y CARE, FIELD IN SETTING COMPLEX THERAPEUT 87254 ONCOLOGY [facility] IC 4 HEMATOLOG RADIOLOGY Y CARE, TX IN PLANNING COMPLEX SBSQ 13411 ONCOLOGY [facility] 4 HEMATOLOG CARE/DAY Y CARE, 15 IN MINUTES SBSQ [id number] CARE/DAY 25 PHYSICIAN MINUTES S PET 95886 RADIOLOGY [facility] [address] ASSOCIATE ATTENUATI S OF NOTH ON SKULL BASE MID-THIGH ANES 77448 [facility] 4 NT NORA ENDOSCOPY ANESTHESI PROXIMAL OLOGIST TO DUODENUM EGD 95047 [facility] PERCUTANE 4 [facility] OUS PLACEMENT PHYSICIAN S GASTROSTO MY TUBE SBSQ 75947 [facility] 4 NECK CARE/DAY SURGERY 15 ASSOC MINUTES INITIAL 03862 [facility] INPATIENT 4 [facility] CONSULT NEW/ESTAB PHYSICIAN PT 80 S MIN SBSQ [address] JASMINA CARE/DAY 25 PHYSICIAN MINUTES S SBSQ 33518 [facility] 4 NECK CARE/DAY SURGERY 15 ASSOC MINUTES SBSQ [address]191 [place] [address] NECK AP CARE/DAY SURGERY 25 ASSOC MINUTES RADIOLOGI 33938 RADIOLOGY [facility] 4 EXAMINATI ASSOCIATE ON CHEST S OF NOTH [place]ING[place] FRONTAL SBSQ [address] JASMINA CARE/DAY 25 PHYSICIAN MINUTES S SBSQ 45694 ONCOLOGY [place] [address] HEMATOLOG LAW CARE/DAY Y CARE, [address]BSQ [address] [facility] 4 BARBARA VINCENT CARE/DAY 35 PHYSICIAN MINUTES S SBSQ 94700 [facility] 4 [place] VINCENT CARE/DAY 35 PHYSICIAN MINUTES S INITIAL 55367 ONCOLOGY [facility] 4 HEMATOLOG LAW CARE/DAY Y CARE, 70 IN MINUTES ANES 55466 [facility] 4 NT N ANT THYRD ANESTHESI LARYNX OLOGIST TRACH & LYMPH NECK [address] [facility]KUR ROUTINE 4 BARBARA GAR ECG W/LEAST PHYSICIAN 12 LDS S EKG I&R ONLY PATH [address] [facility] CONSLTJ 4 BARBARA [place] SURG 1ST MED CTR BLK [place]CT[place] [address] [place] [address] [facility] SURG 4 [facility]BARA [facility] PATHOLOGY MED CTR GROSS&AP ROSCOPIC EXAM INITIAL 58009 [facility] INPATIENT 4 BARBARA VINCENT CONSULT NEW/ESTAB PHYSICIAN PT 80 S MIN RADIOLOGI 31692 RADIOLOGY RALPH C 4 GAR EXAMINATI ASSOCIATE ON CHEST S OF NOT SINGLE VIEW FRONTAL PHARYNGEA [address] L BIOPSY 4 BARBARA BARBARA FT FT CHEMO MCLAIN LARYNGOSC [address] OPY AND 4 BARBARA BARBARA OTHER FT FT TRACHEOSC CHEMO CHEMO OPY CONT [address] INVASIVE 4 BARBARA BARBARA MECH VENT FT FT < 96 CHEMO MCLAIN CONSECUTI VE HOURS TEMPORARY [address] 4 BARBARA BARBARA TRACHEOST FT FT STEVE CHEMO MCLAIN NONEMERGE A0130 [facility] 4 INC TRANSPORT TRANSPORT REGION 9 ATION CO ATION: Alexandru Vanegas VAN NONEMERGE A0130 [facility] 4 INC TRANSPORT TRANSPORT REGION 9 ATION CO ATION: Alexandru WILLAMS ECG [address] ROUTINE 4 BARBARA BARBARA ECG MED CTR MED CTR W/LEAST JUICE SCALEMAN ST JUICE SCALEMAN ST 12 LDS TRCG ONLY W/O I&R ECG [address] ST TIO MAR ROUTINE 4 BARBARA ECG MED CTR W/LEAST 12 LDS I&R ONLY CT THORAX [address] 4 BARBARA BARBARA W/CONTRAS FT FT T CHEMO CHEMO MATERIAL NONEMERGE A0130 [facility] 4 INC TRANSPORT TRANSPORT REGION 9 [facility] THUMB REGION ATION: Alexandru MARYCRUZ WILLAMS CT SOFT [address] TISSUE 4 BARBARA BARBARA NECK FT FT W/CONTRAS CHEMO CHEMO T MATERIAL ADLT SZD T4528 PERSONAL PERSONAL DISPBL 4 TOUCH TOUCH INCONT HOME PENITENTIARY CARE PROD OF OF UNDWEAR XTRA LG EA NONEMERGE A0130 [facility] NCY 4 INC [facility]SP[facility]: Alexandru MARYCRUZ WILLAMS LARYNGOSC 46774 HEAD & KEMPINERS OPY 4 NECK JAM FLEXIBLE SURGERY DIAGNOSTI ASSOC C NONEMERGE A0130 [facility]ANI[facility] NC[facility] 4 INC TRANSPORT TRANSPORT REGION 9 [facility] THUMB REGION ATION: Alexandru MARYCRUZ WILLAMS RESP ASST E0470 CONV[facility]ARE CONVACARE DEVC 4 SERVICES SERVICES BI-LEVL INC INC PRSS CAPABILIT Y W/O BACKU HUMDIFIR E0562 CONVACARE CONVACARE HEATED 4 SERVICES SERVICES USED INC INC W/POS ARWAY PRESSURE DEVICE AMBULANCE A0429 SHAI SHAI SERVICE 4 CO CO BLS AMBULANCE AMBULANCE EMERGENCY TAXIN TAXIN TRANSPORT GROUND A0425 SHAI SHAI MILEAGE 4 CO CO PER AMBULANCE AMBULANCE STATUTE TAXIN TAXIN MILE ADLT D T4528 PERSONAL PERSONAL DISPBL 4 TOUCH TOUCH INCONT HOME PENITENTIARY CARE PROD OF OF UNDWEAR XTRA LG EA HUMDIFIR E0562 CONVACARE CONVACARE HEATED 4 SERVICES SERVICES USED INC INC W/POS ARWAY PRESSURE DEVICE RESP ASST E0470 CONVACARE CONVACARE DEVC 4 SERVICES SERVICES BI-LEVL INC INC PRSS CAPABILIT Y W/O BACKU BASIC [address] METABOLIC 4 BARBARA BARBARA PANEL MED CTR MED CTR CALCIUM JUICE SCALEM[address] JU[address] SC[address] ST TOTAL HEMOGLOBI [address] N 4 BARBARA BARBARA GLYCOSYLA MED CTR MED CTR CASSIUS A1C JUICE SCAL[address] LIPID [address] PANEL 4 BARBARA BARBARA MED CTR MED CTR JUICE [address] HEPAT[address] FUNCTION 4 BARBARA BARBARA PANEL MED CTR MED CTR [address] [address] THYROID 4 BARBARA BARBARA STIMULATI MED CTR MED CTR NG JU[address] JUICE SCALEMAN ST HORMONE TSH RESP ASST E0470 CONVACARE CONVACARE DEVC 4 SERVICES SERVICES BI-LEVL INC INC PRSS CAPABILIT Y W/O BACKU HUMDIFIR E0562 CONVACARE CONVACARE HEATED 4 SERVICES SERVICES USED INC INC W/POS ARWAY PRESSURE DEVICE ADLT SZD T4528 PERSONAL PERSONAL DISPBL 4 TOUCH TOUCH INCONT HOME PENITENTIARY CARE PROD OF OF UNDWEAR XTRA LG EA NONEMERGE A0130 [facility] 4 INC TRANSPORT TRANSPORT REGION 9 ATION CO ATION: Alexandru WILLAMS NONEMERGE A0130 [facility] 4 INC TRANSPORT TRANSPORT REGION 9 ATION CO ATION: Alexandru WILLAMS POLYSOM [address]01[address] [facility] PAT 6/>YRS 4 BARBARA SLEEP MED CTR W/CPAP 4/> [place] [address] PROSTATE 3 BARBARA BARBARA SPECIFIC MED CTR MED CTR ANTIGEN JUICE SCALEMAN ST JUICE [facility] [facility] T[facility]PATIC [address] FUNCTION 3 BARBARA BARBARA PANEL MED CTR MED CTR JUICE SCALEMAN ST [facility] IIV[address] VACCINE 3 BARBARA AP SPLIT VIRUS 0.5 PHYSICIAN ML S DOSAGE IM USE HEMOGLOBI [address] N 3 BARBARA BARBARA GLYCOSYLA MED CTR MED CTR CASSIUS A1C JUICE SCALEMAN ST JUICE [address]ALEMAN [address] BASIC [address] METABOLIC 3 BARBARA BARBARA PANEL MED CTR MED CTR CALCIUM JUICE SCALEMAN ST JUICE [facility] ST TOTAL COLLECTIO [address] N VENOUS 3 BARBARA AP BLOOD VENIPUNCT PHYSICIAN URE S ADLT SZD T4528 PERSONAL PERSONAL DISPBL 3 TOUCH TOUCH INCONT HOME PENITENTIARY CARE [place]OD [place] [address] THYROID 3 BARBARA BARBARA STIMULATI MED CTR MED CTR NG JUICE SCALEMAN ST JUICE SCALEMAN ST HORMONE TSH ADLT SZD T4528 PERSONAL PERSONAL DISPBL 3 TOUCH TOUCH INCONT HOME PENITENTIARY CARE PROD OF OF UNDWEAR XTRA LG EA POLYSOM [address] ST MILES PAT 6/>YRS 3 BARBARA SLEEP 4/> MED CTR ADDL RHIANNA ATTND NONEMERGE A0130 LKLP CAC [facility] NCY 3 INC TRANSPORT TRANSPORT REGION 9 ATION CO ATION: Alexandru WILLAMS OPHTH [address], XM&EVAL OD, PSC COMPRE NEW PT 1/> VST DETERMINA [address], REFRACTIV OD, PSC E STATE NONEMERGE A0130 LKLP CAC [facility] NCY 3 INC TRANSPORT TRANSPORT REGION 9 ATION CO ATION: Alexandru WILLAMS ADLT SZD T4528 PERSONAL PERSONAL DISPBL 3 TOUCH TOUCH INCONT HOME PENITENTIARY CARE PROD OF OF UNDWEAR XTRA LG EA NONEMERGE A0130 LKLP CAC [facility] NCY 3 INC TRANSPORT TRANSPORT REGION 9 [place]: [place] [address] RADIOLOGY HARROD HEAD/BRAI 3 ISAIAH N W/O ASSOCIATE CONTRAST S OF NOT MATERIAL ECG [address] ST HULLER ROUTINE 3 BARBARA RAL ECG MED CTR W/LEAST 12 LDS I&R ONLY GROUND A0425 SHAI SHAI MILEAGE 3 CO CO PER AMBULANCE AMBULANCE STATUTE TAXIN TAXIN MILE AMB A0427 SHAI SHAI SERVICE 3 CO CO ALS AMBULANCE AMBULANCE EMERGENCY TAXIN TAXIN TRANSPORT LEVEL 1 ADLT SZD T4528 PERSONAL PERSONAL DISPBL 3 TOUCH TOUCH INCONT HOME PENITENTIARY CARE PROD OF OF UNDWEAR XTRA LG EA IIV3 VACC [address] 2 BARBARA [facility] PRESERVAT SURENDRA FREE PHYSICIAN 0.5 ML S DOSAGE IM USE REMOVAL [address] SKN TAGS 2 BARBARA MIC FURNACE FILLER FIBRQ TAGS ANY PHYSICIAN AREA S UPW/15 REPR/SRVC K0739 THE THE DME NOT 2 SCOOTER SCOOTER O2 RQR STORE STORE TECH CMPNT [place] [address] [place] [address] THYROID 2 BARBARA BARBARA STIMULATI NG MEDICALCE MEDICALCE [place] [address] PROSTATE 2 BARBARA BARBARA SPECIFIC ANTIGEN MEDICALCE MEDICALCE TOTAL NTER NTER AMB A0427 SHAI SHAI SERVICE 2 CO CO ALS AMBULANCE AMBULANCE EMERGENCY TAXIN TAXIN TRANSPORT LEVEL 1 GROUND A0425 SHAI SHAI MILEAGE 2 CO CO PER AMBULANCE AMBULANCE STATUTE TAXIN TAXIN MILE BASIC [address] METABOLIC 2 BARBARA BARBARA PANEL CALCIUM MEDICALCE MEDICALCE TOTAL NTER NTER HEMOGLOBI [address] N 2 BARBARA BARBARA GLYCOSYLA CASSIUS A1C MEDICALCE MEDICALCE NTER NTER COLLECTIO 20467 ST ROCK N VENOUS 2 BARBARA MIC BLOOD VENIPUNCT PHYSICIAN URE S HEPATIC [address] ST [address] FUNCTION 2 BARBARA BARBARA PANEL MEDICALCE MEDICALCE NTER NTER LIPID [address] PANEL 2 BARBARA BARBARA MEDICALCE MEDICALCE NTER NTER NONEMERGE A0100 LK KESHACOX BRANSON NCY 2 COMMUNITY TRANSPORT TRANSPORT ACTION ATION CO ATION; L TAXI ALBUMIN [address] ST URINE 2 BARBARA BARBARA MICROALBU MIN MEDICALCE MEDICAL[place] [address] THYROID 2 BARBARA BARBARA STIMULATI NG MEDICALCE MEDICAL[place] [address] FREE 2 BARBARAJOSAFAT JIMENEZ THYROXINE MEDICALCE MEDICALCE NTER NTER CREATININ [address] E OTHER 2 BARBARARED VITALETH SOURCE MEDICALCE MEDICALCE NTER NTER REPR/SRVC K0739 THE THE DME NOT 2 SCOOTER SCOOTER O2 RQR STORE STORE TECH CMPNT PER 15 MINS PWR WC K0825 THE THE GRP 2 2 SCOOTER SCOOTER HEVY DUTY STORE STORE CAPT CHAIR PT [phone] LBS PWR WC [id number] THE THE ACSS 22NF 2 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 2 Rhiannon SHERMAN EHR XM&EVAL OD, PSC COMPRE NEW PT 1/> VST DETERMINA 35525 [facility] Wood [facility] 2 Rhiannon SHERMAN EHR REFRACTIV OD, PSC E STATE PHYSICAL 37177 [facility] 2 EVALUATIO [facility] [place] NONEMERGE A0100 LKLP BENCOX BRANSON NCY 2 COMMUNITY TRANSPORT TRANSPORT ACTION ATION CO ATION; L TAXI COMPREHEN [address] SIVE 1 BARBARA JIMENEZ METABOLIC PANEL MEDICALCE MEDICALCE NTER NTER BLOOD [address] COUNT 1 BARBARA JIMENEZ COMPLETE AUTO&AUTO MEDICALCE MEDICALCE DIFRNTL NTER NTER WBC GROUND A0425 SHAI SHAI MILEAGE 1 CO CO PER AMBULANCE AMBULANCE STATUTE TAXIN TAXIN MILE ECG [address] ST MOHINI ROUTINE 1 BARBARA DEL ECG MED CTR W/LEAST 12 LDS I&R ONLY COLLECTIO [address] N VENOUS 1 BARBARA JIMENEZ BLOOD VENIPUNCT MEDICALCE MEDICALCE URE NTER NTER ECG [address] ROUTINE 1 BARBARA VITALETH ECG W/LEAST MEDICALCE MEDICALCE 12 LDS NTER NTER TRCG ONLY W/O I&R AMB A0427 SHAI SHAI SERVICE 1 CO CO ALS AMBULANCE AMBULANCE EMERGENCY TAXIN TAXIN TRANSPORT LEVEL [address] BLOOD 1 BARBARA BARBARA REAGENT STRIP [place] [address] BLOOD/URI 1 BARBARA BARBARA C ACID MEDICALCE MEDICALCE NTER NTER HEMOGLOBI [address] N 1 BARBARA BARBARA GLYCOSYLA CASSIUS A1C MEDICALCE MEDICALCE NTER NTER BASIC [address] METABOLIC 1 BARBARA BARBARA PANEL CALCIUM MEDICALCE MEDICALCE TOTAL NTER NTER LIPID [address] [facility] NTER NTER HEPATIC [address] FUNCTION 1 BARBARA BARBARA PANEL MEDICALCE MEDICALCE NTER NTER THERAPEUT [address] IC PX 1/> 1 [facility] E[facility] 15 MIN EXERCISES NONEMERGE A0100 LKLP [facility]TS NCY 1 COMMUNITY TRANSPORT TRANSPORT ACTION ATION CO ATION; L TAXI THERAPEUT [address] IC PX 1/> 1 [facility] 15 MIN EXERCISES NONEMERGE A0100 LKLP [facility]TS NCY 1 COMMUNITY TRANSPORT TRANSPORT ACTION ATION CO ATION; L TAXI NONEMERGE A0100 LKLP [facility] NCY 1 COMMUNITY TRANSPORT TRANSPORT ACTION ATION CO ATION; L TAXI NONEMERGE A0100 LKLP [facility] NCY 1 COMMUNITY TRANSPORT TRANSPORT ACTION ATION CO ATION; L TAXI THERAPEUT [address] ST ST IC PX 1/> 1 [facility] 15 MIN EXERCISES THERAPEUT [address] IC PX 1/> 0 [facility] 15 MIN EXERCISES NONEMERG A0120 LKLP LKLP TRNSPRT: 0 [facility] ACTION N [facility] AREA/OT SYS NONEMERG A0120 LKLP LKLP TRNSPRT: 0 [facility] ACTION N AKN AREA/OTH SYS THERAPEUT [address] IC PX 1/> 0 [facility] 15 MIN EXERCISES THERAPEUT [address] IC PX 1/> 0 [facility] 15 MIN EXERCISES PHYSICAL [address] THERAPY 0 [facility] N NONEMERG A0120 LK LK TRNSPRT: 0 [facility] ACTION N AKN AREA/OTH SYS NONEMERG A0120 LK LK TRNSPRT: 0 [facility] ACTION N AKN AREA/OTH SYS NONEMERG A0120 LK LK TRNSPRT: 0 [facility] ACTION N AKN AREA/OTH SYS IIV3 [address] VACCINE 0 BARBARA BARBARA SPLIT VIRUS 0.5 PHYSICIAN PHYSICIAN ML S S DOSAGE IM USE HEPATIC [address] FUNCTION 0 BARBARA BARBARA PANEL MEDICALCE MEDICALCE NTER NTER LIPID [address] PANEL 0 BARBARA BARBARA MEDICALCE MEDICALCE NTER NTER BASIC [address] METABOLIC 0 BARBARA BARBARA PANEL CALCIUM MEDICALCE [place] [address] BLOOD/URI 0 BARBARA BARBARA C ACID MEDICALCE MEDICALCE NTER NTER AMB A0427 SHAI SHAI SERVICE 0 CO CO ALS AMBULANCE AMBULANCE EMERGENCY TAXIN TAXIN TRANSPORT LEVEL [address] 0 BARBARA BARBARA STICK/TAB LET RGNT MEDICALCE MEDICALCE NON-AUTO NTER NTER W/[place] [address] MAGNESIUM 0 BARBARA BARBARA MEDICALCE MEDICALCE NTER NTER BASIC [address] METABOLIC 0 BARBARA BARBARA PANEL CALCIUM MEDICALCE MEDICALCE TOTAL NTER NTER BLOOD [address] COUNT 0 BARBARA BARBARA COMPLETE AUTO&AUTO MEDICALCE MEDICALCE DIFRNTL NTER NTER WBC GROUND A0425 SHAI SHAI MILEAGE 0 CO CO PER AMBULANCE AMBULANCE STATUTE TAXIN TAXIN MILE COLLECTIO [address] N VENOUS 0 BARBARA BARBARA BLOOD VENIPUNCT MEDICALCE MEDICALCE URE NTER [facility] [address] [place] DISCHARGE 0 BARBARA MIN DAY MANAGEMEN PHYSICIAN T 30 S MIN/< SBSQ 82047 [facility] 0 S CARE/DAY HEALTHCAR 25 E IN MINUTES ELECTROEN 31676 [facility] CEPHALOGR 0 S AM W/REC HEALTHCAR AWAKE&ASL E IN EEP RADIOLOGI 23021 RADIOLOGY YURIDIA C 0 SHARLA EXAMINATI ASSOCIATE ON CHEST S PSC SINGLE VIEW FRONTAL MRI BRAIN 56018 RADIOLOGY ARLINE BRAIN 0 ATT STEM W/O ASSOCIATE W/[place] [address] RADIOLOGY YURIDIA HEAD/BRAI 0 SHARLA N W/O ASSOCIATE CONTRAST S PSC MATERIAL ECG [address] ST TIO MAR ROUTINE 0 BARBARA ECG MED CTR W/LEAST 12 LDS I&R ONLY GROUND A0425 SHAI SHAI MILEAGE 0 CO CO PER AMBULANCE AMBULANCE STATUTE TAXIN TAXIN MILE AMBULANCE A0429 SHAI SHAI SERVICE 0 CO CO BLS AMBULANCE AMBULANCE EMERGENCY TAXIN TAXIN TRANSPORT INITIAL 55342 [facility] 0 S CARE/DAY HEALTHCAR 50 E IN MINUTES ECG [address] ST TIO MAR ROUTINE 0 BARBARA ECG MED CTR W/LEAST 12 LDS I&R ONLY HOSPITAL [address] [facility] DISCHARGE 0 BARBARA AP DAY MANAGEMEN PHYSICIAN T 30 S MIN/< CT SOFT 87895 RADIOLOGY [place] TISSUE 0 NORA NECK ASSOCIATE W/CONTRAS S PSC T MATERIAL ELECTROEN 19465 FIOR GALLARDO TY CEPHALOGR 0 S AM W/REC HEALTHCAR AWAKE&ASL E IN EEP MRA NECK 00103 RADIOLOGY RADIOLOGY W/O 0 &W/CONTRA ASSOCIATE ASSOCIATE ST S PSC S PSC MATERIAL MRI BRAIN 96870 RADIOLOGY SUMAYA BRAIN 0 III ALICIA STEM W/O ASSOCIATE W/CONTRAS S PSC T MATERIAL ECG 44683 [facility] MAR ROUTINE 0 BARBARA ECG MED CTR W/LEAST 12 LDS I&R ONLY INITIAL 83352 [facility] 0 BARBARA AP CARE/DAY 70 PHYSICIAN MINUTES S ECG 11909 [facility] MAR ROUTINE 0 BARBARA ECG MED CTR W/LEAST 12 LDS I&R ONLY GROUND A0425 SHAI SHAI MILEAGE 0 CO CO PER AMBULANCE AMBULANCE STATUTE SERVI SERVI MILE RADIOLOGI 25435 RADIOLOGY RALPH C 0 JAM EXAMINATI ASSOCIATE ON CHEST S PSC SINGLE VIEW FRONTAL AMB A0427 SHAI SHAI SERVICE 0 CO CO ALS AMBULANCE AMBULANCE EMERGENCY SERVI SERVI TRANSPORT LEVEL 1 AMB A0422 SHAI SHAI OXYGEN&O2 0 CO CO SUPPLIES AMBULANCE AMBULANCE LIFE SERVI SERVI SUSTAININ G SITUATION 3D [address] RENDERING 0 [facility]PROC[facility] SS SUPERVISI ON CT LOWER [address] EXTREMITY 0 [facility] CONTRAST MATERIAL RADEX [address] SHOULDER 0 [facility] MINIMUM [address] C EXAM 0 [facility] COMPLETE 4/MORE VIEWS Encounters Encounter Start End Date Code Location Performer Type Date HOME [address] [facility], 7 7 BARBARA INPATIENT HOME CARE OFFICE 24862 [facility] 7 7 BARBARA T VISIT 15 PHYSICIAN MINUTES S HOME [facility], 7 7 BARBARA INPATIENT HOME CARE EMERGENCY 12542 7 7 BARBARA DEPARTMEN T VISIT HEALTHCAR HIGH/URGE E EDGE NT SEVERITY [facility] ST - 7 7 BARBARA OUTPATIEN T HEALTHCAR E EDGE OFFICE 30713 [facility] 7 7 BARBARA T VISIT 25 PHYSICIAN MINUTES [facility] 7 [facility] [place] OFF[facility] 23483 [facility] 7 7 BARBARA T VISIT 25 PHYSICIAN MINUTES S OFFICE 65368 [facility] 7 7 BARBARA T VISIT 15 PHYSICIAN [address] S [facility] - 7 7 BARBARA OUTPATIEN T HEALTHCAR E EDGE OFFICE 96277 [facility] 7 7 BARBARA T VISIT 5 MINUTES HEALTHCAR E EDGE OFFICE 16507 [facility] BARBARA L T VISIT 25 PHYSICIAN MINUTES S EMERGENCY 29857 [facility] DE[facility] 7 7 EMERGENCY VISIT HIGH PHYSICIAN SEVERITY& S THREAT FUNCJ EMERGENCY 83998 7 7 BARBARA DEPARTMEN T VISIT HEALTHCAR MODERATE E EDGE SEVERITY EMERGENCY 02136 [facility] 7 7 EMERGENCY DEPARTMEN T VISIT PHYSICIAN HIGH/URGE S NT SEVERITY [facility]OSPITAL ST - 7 7 BARBARA OUTPATIEN T HEALTHCAR E EDGE OFFICE 48413 [facility] 7 7 BARBARA T VISIT 25 PHYSICIAN MINUTES S OFFICE 27649 [facility] 7 7 BARBARA T VISIT 25 PHYSICIAN MINUTES [facility] - 7 7 BARBARA OUTPATIEN T HEALTHCAR E EDGE OFFICE 52537 [facility] 7 7 BARBARA T VISIT MED CTR [address] - 7 7 BARBARA OUTPATIEN T HEALTHCAR E [facility] - 7 7 BARBARA OUTPATIEN T HEALTHCAR E EDGE OFFICE 48295 [facility] 7 7 BARBARA T VISIT 25 PHYSICIAN MINUTES S OFFICE 07420 [facility] 6 6 BARBARA TRO T VISIT 15 PHYSICIAN MINUTES [facility] - 6 6 BARBARA OUTPATIEN MED CTR T [facility] [place] [facility] - 6 6 BARBARA OUTPATIEN MED CTR T [facility] [place] - 6 6 [facility] OUTPATIEN INC T EMERGENCY 67360 [facility]T DEPT 6 6 PHYSICIAN AP VISIT S, [facility] HIGH SEVERITY& THREAT [facility]J EMERGENCY [address]24 [place] 6 6 [facility] DEPARTMEN INC T VISIT MODERATE SEVERITY OFFICE 31801 [facility]Y [facility] 6 HEMATOLOG T VISIT Y CARE, [address] - 6 6 BARBARA OUTPATIEN MED CTR T [facility] [place] [facility] - 6 6 BARBARA OUTPATIEN MED CTR T [facility] 75520 [facility] OUTPATIEN 6 6 NECK JAM T VISIT SURGERY 15 ASSOC MINUTES OFFICE 93708 [facility] 6 6 BARBARA TRO T VISIT 15 PHYSICIAN MINUTES [facility] ST - 6 6 BARBARA OUTPATIEN MED CTR T JUICE SC[address]EMAN [facility] OFFICE [address] [facility] E[facility] OUTPATIEN 6 6 BARBARA TRO T VISIT [address] - 6 6 BARBARA OUTPATIEN MED CTR T JUICE [facility] OFFICE [address] ST OUTPATIEN 6 6 BARBARA T VISIT 5 MED CTR MINUTES JUICE SCALEMAN ST OFFICE 60395 [facility] OUT[facility] 6 6 NECK JAM T VISIT SURGERY [address] - 6 6 BARBARA OUTPATIEN MED CTR T JUICE SCALEMAN OFFICE 92061 ST E[facility]OY OUTPATIEN 6 6 BARBARA TRO T VISIT 25 PHYSICIAN MINUTES [facility] - 6 6 BARBARA OUTPATIEN MED CTR T JUICE SCALEMAN [facility] ST - 6 6 BARBARA OUTPATIEN MED CTR T [facility] OFFICE 54874 [facility] OUTPATIEN 6 6 NECK JAM T VISIT SURGERY 25 ASSOC MINUTES OFFICE 99948 [facility] OUTPATIEN 6 6 BARBARA T VISIT 25 PHYSICIAN MINUTES S OFFICE [address]36 ST OUTPATIEN 6 6 BARBARA T VISIT 5 MED CTR MINUTES JUICE SCALEMAN ST OFFICE 97292 ONCOLOGY [facility]A OUTPATIEN 6 6 HEMATOLOG T VISIT Y CARE, [address] - 6 6 BARBARA OUTPATIEN MED CTR T JUICE SCALEMAN OFFICE 54828 ONCOLOGY CALLI OUTPATIEN 6 6 HEMATOLOG LAW T VISIT Y CARE, 15 IN MINUTES HOME [facility], 5 5 TOUCH OTHER HOME CARE OF HOME PERSONAL HEALTH, 5 5 TOUCH INPATIENT HOME CARE OF OFFICE 58973 [facility] OUTPATIEN 5 5 NECK JAM T VISIT SURGERY 15 ASSOC MINUTES HOME P[facility], 5 5 TOUCH OTHER HOME CARE OF OFFICE 16354 [facility] OUTPATIEN 5 5 BARBARA DENIA T VISIT 15 PHYSICIAN MINUTES S [facility] [address] - 5 5 BARBARA OUTPATIEN MED CTR T JUICE SCALEMAN [facility] HOME PERSONAL HEALTH, 5 5 TOUCH OTHER HOME CARE OF OFFICE 52050 ONCOLOGY [facility] OUTPATIEN 5 5 HEMATOLOG T VISIT Y CARE, 25 IN MIN[address] OFFICE [address] ST OUTPATIEN 5 5 BARBARA T VISIT 5 MED CTR MINUTES [facility] - 5 5 BARBARA OUTPATIEN MED CTR T JUICE SCALEMAN [facility] HOME PERSONAL HEALTH, 5 5 TOUCH OTHER HOME CARE OF OFFICE 80840 [facility] OUTPATIEN 5 5 BARBARA DENIA T VISIT 25 PHYSICIAN MINUTES S OFFICE 90517 ONCOLOGY CALLI OUTPATIEN 5 5 HEMATOLOG LAW T VISIT Y CARE, 15 IN MINUTES HOME PERSONAL HEALTH, 5 5 TOUCH OTHER HOME CARE OF HOME PERSONAL HEALTH, 5 5 TOUCH OUTPATIEN HOME CARE T OF HOME PERSONAL HEALTH, 5 5 TOUCH OTHER HOME CARE OF OFFICE 72240 [facility] OUTPATIEN 5 5 NECK JAM T VISIT SURGERY 15 ASSOC MINUTES HOME PERSONAL HEALTH, 5 5 TOUCH OUTPATIEN HOME CARE T OF HOSPITAL ST - 5 5 BARBARA OUTPATIEN MED CTR T JUICE SCALEMAN [facility] HOME PERSONAL HEALTH, 5 5 TOUCH OTHER HOME CARE OF OFFICE 56928 [facility] OUTPATIEN 5 5 BARBARA DENIA T VISIT 15 PHYSICIAN MINUTES S HOME [facility], 5 5 TOUCH OUTPATIEN HOME CARE T OF OFFICE 63368 ONCOLOGY MORENO PRA OUTPATIEN 5 5 HEMATOLOG T VISIT Y CARE, 25 IN MINUTES OFFICE 16908 ONCOLOGY LUCINDA OUTPATIEN 5 5 HEMATOLOG N ISAIAH T VISIT Y CARE, 15 IN MINUTES HOME PERSONAL HEALTH, 5 5 TOUCH OTHER HOME CARE OF OFFICE 44512 [facility] OUTPATIEN 5 5 BARBARA DENIA T VISIT 25 PHYSICIAN [address] [facility] - 5 5 BARBARA OUTPATIEN MED CTR T JUICE SC[facility]EMAN [facility] HOME PERSONAL HEALTH, 5 5 TOUCH OUTPATIEN HOME CARE T OF OFFICE 99898 ONCOLOGY MORENO PRA OUTPATIEN 5 5 HEMATOLOG T VISIT Y CARE, 25 IN MINUTES HOME PERSONAL HEALTH, 5 5 TOUCH OUTPATIEN HOME CARE T OF HOME PERSONAL HEALTH, 5 5 TOUCH OTHER HOME CARE OF HOME PERSONAL HEALTH, 5 5 TOUCH OTHER HOME CARE OF HOME PERSONAL HEALTH, 5 5 TOUCH OUTPATIEN HOME CARE T OF OFFICE 73040 ONCOLOGY CALLI OUTPATIEN 5 5 HEMATOLOG LAW T VISIT Y CARE, [address] - 5 5 BARBARA OUTPATIEN MED CTR T JUICE SCALEMAN [facility] OFFICE [address]7866 [facility] OUTPATIEN 5 5 BARBARA DENIA T VISIT 25 PHYSICIAN MINUTES S OFFICE 07760 INFECTIOU DEVARAJAN OUTPATIEN 5 5 S DISEASE VID T VISIT 25 CONSULTAN MINUTES OFFICE 36577 ST OUTPATIEN 4 4 BARBARA T VISIT 5 MED CTR MINUTES [facility] ST - 4 4 BARBARA OUTPATIEN MED CTR T [facility] [place] - 4 4 [facility] OUTPATIEN INC T OFFICE 00125 INFECTIOU DEVARAJAN OUTPATIEN 4 4 S DISEASE VID T VISIT 25 CONSULTAN MINUTES [facility] ST - 4 4 BARBARA OUTPATIEN MED CTR T [facility] PERSONAL HE[facility], 4 4 TOUCH OUTPATIEN HOME CARE T OF [place]ITAL [place] - 4 4 [facility]PATIEN INC [facility] ST - 4 4 BARBARA OUTPATIEN MED CTR T [facility] PERSONAL HE[facility], 4 4 TOUCH OTHER HOME CARE OF HOME PERSONAL HEALTH, 4 4 TOUCH OUTPATIEN HOME CARE T OF HOSPITAL ST - 4 4 BARBARA OUTPATIEN MED CTR T [facility] EMERGENCY 96743 [facility] 4 4 BARBARA DEPARTMEN MED CTR T VISIT MODERATE SEVERITY HOME PERSONAL HEALTH, 4 4 TOUCH OUTPATIEN HOME CARE T OF HOSPITAL ST - 4 4 BARBARA OUTPATIEN MED CTR T [facility] PERSONAL HE[facility], 4 4 TOUCH OUTPATIEN HOME CARE T OF HOME PERSONAL HEALTH, 4 4 TOUCH OUTPATIEN HOME CARE T OF OFFICE 84971 [facility] OUTPATIEN 4 4 BARBARA DENIA T VISIT 25 PHYSICIAN MINUTES S OFFICE 17101 INFECTIOU DEVARAJAN OUTPATIEN 4 4 S DISEASE VID T VISIT 40 CONSULTAN MINUTES OFFICE 56251 [facility] OUT[facility] 4 4 NECK JAM T VISIT SURGERY 10 ASSOC MINUTES OFFICE 62687 [facility] OUTPATIEN 4 4 NECK JAM T VISIT SURGERY 15 ASSOC MINUTES OFFICE 08314 ONCOLOGY CALLI OUTPATIEN 4 4 HEMATOLOG LAW T VISIT Y CARE, [address] - 4 4 BARBARA OUTPATIEN MED CTR T [facility] [place] [facility] - 4 4 BARBARA OUTPATIEN MED CTR T [facility] [place] [facility] - 4 4 BARBARA INPATIENT MED CTR [facility] OFFICE 10772 [facility] CONSULTAT 4 4 BARBARA ION NEW/ESTAB PHYSICIAN PATIENT S 60 MIN EMERGENCY 93084 [facility] DEPT 4 4 BARBARA MICAH VISIT MED CTR HIGH SEVERITY& THREAT FUNCJ OFFICE 11066 ONCOLOGY POLI CHR OUTPATIEN 4 4 HEMATOLOG T VISIT Y CARE, [address] - 4 4 BARBARA OUTPATIEN MED CTR T [facility] OFFICE 87419 ONCOLOGY POLI CHR OUTPATIEN 4 4 HEMATOLOG T VISIT Y CARE, 25 IN MINUTES OFFICE 79778 ONCOLOGY CALLI OUTPATIEN 4 4 HEMATOLOG LAW T VISIT Y CARE, [address] - 4 4 BARBARA OUTPATIEN MED CTR T [facility] 4 4 POINT - OTHER [facility] - 4 4 BARBARA OUTPATIEN MED CTR T [facility] OFFICE [address]89 ST OUTPATIEN 4 4 BARBARA T VISIT 5 MED CTR MINUTES [facility] 4 4 POINT - OTHER [facility] - [address] [facility] PERSONAL HEALTH, 4 4 TOUCH OTHER HOME CARE OF HOSPITAL ST - 4 4 BARBARA OUTPATIEN MED CTR [facility] - 4 4 BARBARA OUTPATIEN FT T CHEMO HOME PERSONAL HEALTH, 4 4 TOUCH OUTPATIEN HOME CARE T OF OFFICE 54155 [facility] 4 4 NECK JAM ION SURGERY NEW/ESTAB ASSOC PATIENT 80 MIN OFFICE 75368 [facility] OUTPATIEN 4 4 BARBARA DENIA T VISIT 25 PHYSICIAN MINUTES S [facility] [place] - 4 4 [facility] OUTPATIEN INC [place] [address] [place] 4 4 [facility] DEPARTMEN INC T VISIT LOW/MODER SEVERITY EMERGENCY 84314 [facility] 4 4 CHERIE DEPARTMEN EMERGENCY T VISIT PHYS MODERATE SEVERITY HOME PERSONAL HEALTH, 4 4 TOUCH OUTPATIEN HOME CARE T OF HOME PERSONAL HEALTH, 4 4 TOUCH OTHER HOME CARE OF HOME PERSONAL HEALTH, 4 4 TOUCH OTHER HOME CARE OF HOSPITAL ST - 4 4 BARBARA OUTPATIEN MED CTR T JUICE SCALEMAN PERIODIC [address] [facility] 4 4 [facility] AP E MED EST PATIENT PHYSICIAN 40-64YRS S HOME PERSONAL HEALTH, 4 4 TOUCH OTHER HOME CARE OF HOME PERSONAL HEALTH, 4 4 TOUCH OUTPATIEN HOME CARE T OF HOME PERSONAL HEALTH, 4 4 TOUCH OTHER HOME CARE OF [facility] ST - 4 4 [facility] OUTPATIEN [facility] CTR T JUICE SCALEMAN HOME PERSONAL HEALTH, 4 4 TOUCH OTHER HOME CARE OF HOME PERSONAL HEALTH, 3 3 TOUCH OTHER HOME CARE OF OFFICE [address]1862 ST OUTPATIEN 3 3 [facility] T VISIT 5 MED CTR MINUTES [facility] - 3 3 [facility] T JUICE SCALEMAN OFFICE [address] [facility] PAT OUTPATIEN 3 3 [facility] T VISIT MED CTR [address] - 3 3 [facility] OUTPATIEN MED [facility] T JUICE SCALEMAN HOME PERSONAL HEALTH, 3 3 TOUCH OUTPATIEN HOME CARE T OF HOME PERSONAL HEALTH, 3 3 TOUCH OTHER HOME CARE OF HOME PERSONAL HEALTH, 3 3 TOUCH OUTPATIEN HOME CARE T OF HOSPITAL ST - 3 3 [facility] OUTPATIEN MEDICAL T CENTER HOME PERSONAL HEALTH, 3 3 TOUCH OTHER HOME CARE OF OFFICE [address] [facility] PAT CONSULTAT 3 3 [facility] ION MED CTR NEW/ESTAB PATIENT 60 MIN OFFICE 98214 [facility] TY CONSULTAT 3 3 [facility] ION NEW/ESTAB PHYSICIAN PATIENT S 60 MIN HOME PERSONAL HEALTH, 3 3 TOUCH OTHER HOME CARE OF HOME PERSONAL HEALTH, 3 3 TOUCH OUTPATIEN HOME CARE T OF HOME PERSONAL HEALTH, 3 3 TOUCH OTHER HOME CARE OF OFFICE [address] [facility] [place] OUT[facility] 3 3 [facility] AP T VISIT 25 PHYSICIAN MINUTES S HOME PERSONAL HEALTH, 3 3 TOUCH OTHER HOME CARE OF EMERGENCY [address]79[address] ST [facility] 3 3 [facility] CANDE DEPARTMEN MED CTR T VISIT MODERATE SEVERITY EMERGENCY 74947 ST [facility] DEPT 3 3 [facility] CANDE VISIT MED CTR HIGH SEVERITY& THREAT FUNCJ HOME PERSONAL HEALTH, 3 3 TOUCH OTHER HOME CARE OF HOME PERSONAL HEALTH, 3 3 TOUCH OTHER HOME CARE OF HOME PERSONAL HEALTH, 3 3 TOUCH OUTPATIEN HOME CARE T OF HOME PERSONAL HEALTH, 3 3 TOUCH OTHER HOME CARE OF HOME PERSONAL HEALTH, 3 3 TOUCH OTHER HOME CARE OF HOME PERSONAL HEALTH, 3 3 TOUCH OTHER HOME CARE OF HOME PERSONAL HEALTH, 3 3 TOUCH OTHER HOME CARE OF HOME PERSONAL HEALTH, 3 3 TOUCH OTHER HOME CARE OF HOME PERSONAL HEALTH, 2 2 TOUCH OTHER HOME CARE OF HOME PERSONAL HEALTH, 2 2 TOUCH OTHER HOME CARE OF HOME PERSONAL HEALTH, 2 2 TOUCH OTHER HOME CARE OF HOME PERSONAL HEALTH, 2 2 TOUCH OTHER HOME CARE OF HOME PERSONAL HEALTH, 2 2 TOUCH OTHER HOME CARE OF OFFICE 90117 [facility] 2 2 BARBARA DE SOUZA T VISIT [address] [facility] - 2 2 [facility] MEDICALCE NTER HOME PERSONAL HEALTH, 2 2 TOUCH OTHER HOME CARE OF HOME PERSONAL HEALTH, 2 2 TOUCH OTHER HOME CARE OF HOME PERSONAL HEALTH, 2 2 TOUCH OTHER HOME CARE OF HOME PERSONAL HEALTH, 2 2 TOUCH OTHER HOME CARE OF HOME PERSONAL HEALTH, 2 2 TOUCH OTHER HOME CARE OF HOSPITAL ST - 2 2 [facility] T MEDICALCE NTER HOME PERSONAL HEALTH, 2 2 TOUCH OTHER HOME CARE [facility] - 2 2 TH OUTPATIEN [facility] [place] [facility] PERSONAL HEALTH, 2 2 TOUCH OTHER HOME CARE OF HOME PERSONAL HEALTH, 2 2 TOUCH OTHER HOME CARE OF HOME PERSONAL HEALTH, 1 1 TOUCH OTHER HOME CARE OF OFFICE 16530 [facility] 1 2 BARBARA AP T VISIT 15 PHYSICIAN MINUTES S OFFICE 04070 [facility] 1 2 [place] AP T VISIT 25 PHYSICIAN MINUTES S EMERGENCY 96229 [facility] DEPARTMEN MED CTR T VISIT HIGH/URGE NT SEVERITY EMERGENCY [address] ST 1 1 [facility] DEPARTMEN T VISIT MEDICALCE MODERATE NTER SEVERITY HOSPITAL ST - 1 1 [facility] OUTPATIEN T MEDICALCE NTER HOME PERSONAL HEALTH, 1 1 TOUCH OTHER HOME CARE OF OFFICE [id number] [facility] 1 1 [place] AP T VISIT [address] [facility] - 1 1 BARBARAJOSAFAT PEREZPATIEN T MEDICALCE NTER HOME PERSONAL HEALTH, 1 1 TOUCH OTHER HOME CARE OF HOME PERSONAL HEALTH, 1 1 TOUCH OTHER HOME CARE OF HOME PERSONAL HEALTH, 1 1 TOUCH OTHER HOME CARE OF HOME PERSONAL HEALTH, 1 1 TOUCH OTHER HOME CARE OF [facility] PERSONAL HEALTH, 1 1 TOUCH OTHER HOME CARE OF [facility] PERSONAL HE[facility], 1 1 TOUCH OTHER HOME CARE OF [facility] PERSONAL HEALTH, 1 1 TOUCH OTHER HOME [facility]ARE [facility], 1 1 TOUCH OTHER HOME CARE OF OFFICE [id number] [facility] 1 1 BARBAR[place] MIN T VISIT [address] [facility] - 1 1 [facility] T HOME PERSONAL HEALTH, 1 1 TOUCH OTHER HOME CARE OF OFFICE 52697 [facility] 1 1 [place]BAR[place] MIN T VISIT [address] [facility] - 1 1 [facility] T HOME PERSONAL HEALTH, 1 1 TOUCH OTHER HOME CARE [facility] - [facility] 45230 [facility] G[facility]ARDO [facility]1983 0 0 S T VISIT HEALTHCAR 25 E IN MINUTES HOME PERSONAL HEALTH, 0 0 TOUCH OTHER HOME CARE OF OFFICE 52732 [facility] 0 0 [place] MIN T VISIT 25 PHYSICIAN MINUTES S [facility] - 0 0 [place] OUTPATIEN T MEDICALCE NTER HOME PERSONAL HEALTH, 0 0 TOUCH OTHER HOME CARE OF HOME PERSONAL HEALTH, 0 0 TOUCH OTHER HOME CARE OF EMERGENCY [id number] ST 0 0 [place] DEPARTMEN T VISIT MEDICALCE HIGH/URGE NTER NT SEVERITY [facility] ST - 0 0 [place] OUTPATIEN T MEDICALCE NTER HOME [facility]AL [facility], 0 0 TOUCH OTHER HOME CARE OF [facility] ST - 0 0 [place] INPATIENT MEDICALCE NTER EMERGENCY 90217 [facility] [place] AP VISIT MED CTR HIGH SEVERITY& THREAT FUNCJ OFFICE [id number] [facility] 0 0 NECK ION SURGERY NEW/ESTAB ASSOC PATIENT 40 MIN OFFICE 46849 [facility] 0 0 [place] MIN T VISIT 25 PHYSICIAN MINUTES S EMERGENCY 12452 [facility] DEPT 0 0 [place] PAT VISIT MED CTR HIGH SEVERITY& THREAT [facility] ST - 0 0 [facility] - 0 0 [facility]
--- OUTSIDE RECORDS SUMMARY | 2017-02-02 04:21 | External Medical Summary Rpt | CCD ---
Author Author , KITTY Organization [facility] Address Unknown Phone Care Team Providers Care Performance Management Consultant Name Role Phone [employer] Unavailable Unavailable [...] Unavailable YURIDIA SHARLA, Unavailable Unavailable YURIDIA SHARLA [facility] Unavailable Unavailable BEHAVIORAL, [facility] DEVARAJAN VID, Unavailable Unavailable DEVARAJAN VID DAVILA WANDA, DAVILA WANDA Unavailable Unavailable DOERGER, DOERGER Unavailable Unavailable DOMET AP, DOMET AP Unavailable Unavailable [facility], Unavailable Unavailable [facility] LANE JAM, LANE JAM Unavailable Unavailable [facility] Unavailable Unavailable CENTER, [facility] MINDA SALDIVAR, MINDA Unavailable Unavailable [...] Unavailable ASSOC, [facility] Unavailable Unavailable [place], [facility] [place] [facility], Unavailable Unavailable [facility], Unavailable Unavailable [facility] [...] Unavailable KEMPINERS JAM, Unavailable Unavailable KEMPINERS JAM [facility] Unavailable Unavailable IMAGING ASS, [facility] Unavailable Unavailable CARE, [facility] KERMAN ISAIAH, KERMAN Unavailable Unavailable ISAIAH CHELITA GIA, CHELITA GIA Unavailable Unavailable FRIAS, FRIAS Unavailable Unavailable [facility] Unavailable Unavailable 9, [facility] Unavailable Unavailable ACTION_I, [facility] ACTION_I [facility] N, Unavailable Unavailable [facility] N LUBBERS MARJ, LUBBERS Unavailable [...] Unavailable [facility] Unavailable Unavailable [facility], [facility] Unavailable Unavailable [facility], [facility] CEJA GUY, Unavailable Unavailable CEJA GUY [facility] Unavailable Unavailable [place], [facility], [facility] Unavailable Unavailable ROSS GUR, ROSS Unavailable Unavailable GUR POLI CHR, POLI CHR Unavailable Unavailable SCHACK DENIA, SCHACK Unavailable Unavailable DENIA ROCK AP, ROCK Unavailable Unavailable AP RALPH GAR, RALPH Unavailable Unavailable GAR RALPH JAM, RALPH Unavailable Unavailable JAM SCHUSSLER, SCHUSSLER Unavailable Unavailable ANKUR GAR, ANKUR Unavailable Unavailable GAR MORENO PRA, MORENO PRA Unavailable Unavailable QUIROZ BARNEY, QUIROZ BARNEY Unavailable Unavailable [facility] Unavailable Unavailable [facility] Unavailable Unavailable [facility]ARE [facility], [facility] Unavailable Unavailable CARE, [facility] Unavailable Unavailable HOSPITAL, [facility], [facility]available Unavailable [facility] Unavailable Unavailable [facility] , [facility]available Unavailable CENTER, [facility] Unavailable Unavailable [facility]ICAL[facility]ENTER, [facility] Unavailable Unavailable PHYSICIANS, [facility] [...] Unavailable AP WHATLEY, WHATLEY Unavailable Unavailable WELLS ANTALIA, WELLS NATALIA Unavailable Unavailable WELLS SEA, WELLS SEA Unavailable Unavailable JAJA, JAJA Unavailable Unavailable MERRY COLON, Unavailable Unavailable MERRY COLON GRAY, GRAY Unavailable Unavailable ARCELIA JR, ARCELIA Unavailable Unavailable JR MONIKA ANT, Unavailable Unavailable MONIKA ANT Purpose Continuity of Care Document - 09-28-2009 through 2016 Problems Code Diagnosis DOS Provider Status [id number] LOC-REL SX 11-08-2016 EPILEPSY [facility] W/SPS NOT HOME CARE INTRACT W/O SE I10 ESSENTIAL 11-08-2016 PRIMARY [place] HYPERTENSIO HOME CARE N R12118 HEMIPLEGIA 11-08-2016 FLW [facility] CEREBRAL HOME CARE INFARCT AFF LT NON-DOM E83012 DYSPHAGIA 11-08-2016 FOLLOWING [place] CEREBRAL HOME CARE INFARCTION I739 PERIPHERAL 11-08-2016 VASCULAR [place] DISEASE HOME CARE UNSPECIFIED R1312 DYSPHAGIA 11-08-2016 OROPHARYNGE [facility] AL PHASE HOME CARE [id number] PERSONAL 11-08-2016 HISTORY OF [facility] NICOTINE HOME [...] OBSTRUCTION [facility] PHYSICIANS K9429 OTHER 10-06-2016 COMPLICATIO B[facility] NS OF PHYSICIANS GASTROSTOMY R633 FEEDING 10-06-2016 [...] R531 WEAKNESS 10-04-2016 [facility] CO AMBULANCE TAXIN [id number] OTH MECH 10-04-2016 ST COMP OTH GI [facility]OS [facility] IMPL GFT EDGE INIT ENC Z439 ENCOUNTER 10-04-2016 [facility] FOR CO ATTENTION AMBULANCE UNS TAXIN ARTIFICIAL OPENING Z743 NEED FOR 10-04-2016 [facility] CONTINUOUS CO SUPERVISION AMBULANCE TAXIN K9422 GASTROSTOMY 09-12-2016 INFECTION [facility] PHYSICIANS [id number] CELLULITIS 09-12-2016 ST OF TRUNK [facility] UNSPECIFIED PHYSICIANS G4733 OBSTRUCTIVE 08-31-2016 PATIENT SLEEP AIDS INC [facility] ADULT PEDIATRIC M5116 INTERVERTEB 08-15-2016 [facility] D/[facility] C C[facility] W/RADICULOP ATHY LUMB RGN M9901 SEGMENTAL & 08-15-2016 [facility] DYSFUNCTION C CENTER CERVICAL REGION M9902 SEGMENTAL & 08-15-2016 [facility] DYSFUNCTION C CENTER THORACIC REGION Z80338 OTHER 08-09-2016 [facility] SEQUELAE OF [place] [facility] INFARCTION [...] [facility] AFTER CMPL PHYSICIANS [place] MALIG NEOPLASM H22951 PERSONAL HX 07-11-2016 MAL SADIE [facility] OTH [...] [facility] HEALTHCARE EDGE R1314 DYSPHAGIA 05-09-2016 PHARYNGOESO [place] [facility] PHASE EDGE [id number] UNS FB RESP 04-19-2016 ST TRACT PART [facility] UNS CAUS PHYSICIANS OTH INJ INT ENC C760 MALIGNANT 03-29-2016 RADIOLOGY NEOPLASM OF ASSOCIATES HEAD FACE OF NOTH AND NECK I517 CARDIOMEGAL 03-29-2016 ST Y [facility] ST Z7982 MCC 03-29-2016 ST CURRENT USE [facility] OF ASPIRIN MED CTR [facility] ST A67726 OTHER LONG 03-29-2016 ST TERM [facility] CURRENT MED CTR [facility] DRUG ST THERAPY R2689 OTHER 03-23-2016 [facility] ABNORMALITI CO ES OF GAIT AMBULANCE AND TAXIN MOBILITY X07698 FACIAL 03-23-2016 [facility] WEAKNESS CO AMBULANCE TAXIN R413 OTHER 03-23-2016 [place] [facility] R4182 ALTERED 03-23-2016 [place] [facility] STATUS IMAGING ASS UNSPECIFIED R42 DIZZINESS 03-23-2016 [facility] AND CO GIDDINESS AMBULANCE TAXIN R569 UNSPECIFIED 03-23-2016 [facility] PHYSICIANS, CONVULSIONS [facility] M179 OSTEOARTHRI 02-23-2016 PATIENT TIS OF KNEE AIDS INC UNSPECIFIED C024 MALIGNANT 02-09-2016 HEAD & NECK NEOPLASM OF SURGERY LINGUAL ASSOC TONSIL R490 DYSPHONIA 02-09-2016 [facility] SURGERY ASS[facility] R682 DRY MOUTH 02-09-2016 HEAD & NECK UNSPECIFIED SURGERY ASSOC A43411 CELLULITIS 01-19-2016 ST OF BUTTOCK [facility] PHYSICIANS Z23 ENCOUNTER 01-19-2016 ST FOR [facility] IMMUNIZATIO PHYSICIANS N Z6838 BODY MASS 01-19-2016 ST INDEX BMI [facility] 38.0-38.9 PHYSICIANS ADULT E780 PURE 11-06-2015 ST HYPERCHOLES [facility] TEROLEMIA PHYSICIANS M1711 UNILATERAL 11-06-2015 ST PRIMARY [facility] OSTEOARTHRI PHYSICIANS TIS RIGHT KNEE H905 UNSPECIFIED 10-20-2015 ST [facility] SENSORINEUR MED CTR [facility] AL HEARING ST LOSS K117 DISTURBANCE 10-20-2015 ST S OF [facility] SALIVARY MED [facility] SECRETION ST J384 EDEMA OF 08-07-2015 HEAD & NECK LARYNX SURGERY ASSOC C42423 ENCOUNTER 08-04-2015 ST FOR OTHER [facility] PREPROCEDUR MED CTR AL EXAMINATION G8110 SPASTIC 08-03-2015 ST HEMIPLEGIA [facility] AFFECTING PHYSICIANS UNSPECIFIED SIDE R1319 OTHER 07-13-2015 ST DYSPHAGIA [facility] ST I313 PERICARDIAL 07-10-2015 ST EFFUSION [facility] NONINFLAMMA MED CTR [facility] TORY ST J3800 PARALYSIS 07-10-2015 ST OF VOCAL [facility] CORDS AND MED CTR [facility] LARYNX ST UNSPECIFIED J90 PLEURAL 07-10-2015 RADIOLOGY EFFUSION ASSOCIATES NOT OF NOTH ELSEWHERE CLASSIFIED P43199 PERSONAL HX 07-10-2015 ST MAL SADIE [facility] UNS SITE MED CTR [facility] LIP ORL ST CAV&PHARYNX C099 MALIGNANT 06-30-2015 HEAD & NECK NEOPLASM OF SURGERY TONSIL ASSOC UNSPECIFIED H903 SENSORINEUR 06-30-2015 HEAD & NECK AL HEARING SURGERY LOSS ASSOC BILATERAL H9319 TINNITUS 06-30-2015 HEAD & NECK UNSPECIFIED SURGERY EAR ASSOC I6990 UNS 02-28-2015 PERSONAL SEQUELAE TOUCH HOME UNSPECIFIED CARE OF CEREBROVASC ULAR DISEASE R32 UNSPECIFIED 02-28-2015 PERSONAL URINARY TOUCH HOME INCONTINENC CARE OF E K72085 REGULAR 02-23-2015 WICHO SHERMAN, OD, BILATERAL PSC H6123 IMPACTED 02-05-2015 HEAD & NECK CERUMEN SURGERY BILATERAL ASSOC Z430 ENCOUNTER 02-05-2015 HEAD & NECK FOR SURGERY ATTENTION ASSOC TO TRACHEOSTOM Y 2749 GOUT, 01-09-2015 ST UNSPECIFIED [facility] PHYSICIANS 05059 UNSPECIFIED 01-09-2015 ST ACUTE [facility] [place]YSICIANS [place] 54925 01-09-2015 [facility] 9 9349 FOREIGN 01-09-2015 ST BODY IN [facility] RESPIRATORY PHYSICIANS TREE UNSPECIFIED 2114 BENIGN 01-07-2015 ST NEOPLASM OF [facility] RECTUM AND MED CTR [facility] ANAL CANAL ST 5690 ANAL AND 01-07-2015 ST. RECTAL [facility] POLYP PHYSICIANS END V1002 PERS HX MAL 01-07-2015 ST NEOPLSM [facility] OTH&UNS MED CTR [facility] PART ORL ST CAV&PHARYNX V7651 SPECIAL 01-07-2015 ST. SCREENING [facility] FOR PHYSICIANS MALIGNANT END NEOPLASMS COLON 4389 UNSPEC LATE 12-27-2014 PERSONAL EFF TOUCH HOME CEREBRVASC CARE [place]ASC DZ 76822 UNSPECIFIED 12-27-2014 PERSONAL URINARY TOUCH HOME INCONTINENC CARE OF E 1416 MALIGNANT 12-19-2014 ST NEOPLASM OF [facility] LINGUAL MED [facility] TONSIL ST 1619 MALIGNANT 12-19-2014 ONCOLOGY NEOPLASM OF HEMATOLOGY LARYNX CARE, IN UNSPECIFIED SITE V6759 OTHER 12-19-2014 ST FOLLOW-UP [facility] EXAMINATION MED CTR [facility] OTHER ST [address]368 OCCLUSION&S 11-10-2014 ST TENOSIS [facility] VERTEBRAL PHYSICIANS ARTERY W/INFARCT 7295 PAIN IN 11-10-2014 ST SOFT [facility] TISSUES OF PHYSICIANS LIMB 7871 HEARTBURN 11-10-2014 ST [facility] PHYSICIANS 4618 OTHER ACUTE 09-09-2014 HEAD & NECK SINUSITIS SURGERY ASSOC V672 CHEMOTHERAP 09-09-2014 HEAD & NECK Y FOLLOW-UP SURGERY ASSOC EXAMINATION 1460 MALIGNANT 09-01-2014 ST NEOPLASM OF [facility] TONSIL MED CTR [facility] 13303 OSTEOARTHRO 09-01-2014 ST SIS UNSPEC [facility] WHETHER MED CTR [facility] GEN/LOC ST ANK&FOOT 49104 OBSTRUCTIVE 08-11-2014 PATIENT SLEEP AIDS INC APNEA 26789 LOSS OF 08-05-2014 [place] [address] UNSPEC 07-03-2014 ST HEMIPLEGIA [facility] AFFECTING PHYSICIANS UNSPEC SIDE 15427 ATAXIA 07-03-2014 ST LATE EFFECT [facility] OF PHYSICIANS CEREBROVASC ULAR DISEASE 4400 ATHEROSCLER 06-24-2014 ST OSIS OF [facility] AORTA MED CTR [facility] ST 5920 CALCULUS OF 06-24-2014 ST KIDNEY [facility] 77693 UNSPECIFIED 05-02-2014 ST CEREBRAL [facility] ARTERY PHYSICIANS OCCLUSION W/INFARCT 98537 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 STAPH CONSULTAN AUREUS SEPTICEMIA 7907 BACTEREMIA 04-28-2014 INFECTIOUS DISEASE CONSULTAN V153 PERS HX 03-28-2014 ST IRRADIATION [facility] PRESENTING MED CTR [facility] HAZARDS ST HEALTH V5411 AFTERCARE 03-26-2014 [facility] TRAUM[facility] IM[facility]ING ASS FRACTURE UPPER ARM V7260 LABORATORY 03-24-2014 ST EXAMINATION [facility] UNSPECIFIED ST 46681 OTHER LATE 03-15-2014 PERSONAL EFFECTS OF TOUCH HOME CEREBROVASC CARE OF ULAR DISEASE V441 GASTROSTOMY 03-15-2014 [place] [address] CLOSED 03-14-2014 [place] FRACTURE OF MEM HOSP INC UNSPECIFIED PART OF HUMERUS 70579 CLOSED 03-14-2014 [facility] FRACTURE OF PHYSICIANS SHAFT OF GROUP HUMERUS 1490 MALIGNANT 03-13-2014 RADIOLOGY NEOPLASM OF ASSOCIATES PHARYNX OF [facility] UNSPECIFIED 1990 OTHER 03-13-2014 ST MALIGNANT [facility] NEOPLASM OF MED CTR [facility] WOMEN[facility] ST UNSPECIFIED SITE 4730 CHRONIC 03-13-2014 ST MAXILLARY [facility] SINUSITIS MED CTR [facility] ST 7856 ENLARGEMENT 03-13-2014 ST OF LYMPH [facility] NODES [facility] [facility] [address] GENERALIZED 03-07-2014 ST PAIN [facility] 10993 CLOSED 03-07-2014 ST FRACTURE [facility] UNSPEC PART MED CTR [facility] UPPER END ST HUMERUS 22938 CLOSED 03-07-2014 RADIOLOGY FRACTURE OF ASSOCIATES SURGICAL OF NOT NECK OF HUMERUS 83815 OTHER 03-07-2014 ADVANCED CLOSED TECHNOLOGIE FRACTURES S INC OF UPPER END OF HUMERUS 53571 LEUKOCYTOPE 02-25-2014 ST CHIVO [facility] UNSPECIFIED PHYSICIANS 3670 HYPERMETROP 02-20-2014 WICHO SHERMAN, OD, PSC 32981 VITREOUS 02-20-2014 WICHO SHERMAN, OD, N PSC 97806 VOMITING 02-18-2014 ST ALONE [facility] PHYSICIANS 2449 UNSPECIFIED 02-12-2014 [place]IBRINI [place] HYPOTHYROID [place]M 79384 OTHER 02-12-2014 JIBRINI MHA CONVULSIONS V440 TRACHEOSTOM 02-12-2014 JIBRINI MHA Y STATUS 62476 FEVER 02-05-2014 JIBRINI MHA UNSPECIFIED V580 RADIOTHERAP 01-23-2014 ST Y [facility] ST V5811 ENCOUNTER 01-23-2014 ST FOR [facility] ANTINEOPLAS MED CTR [facility] TIC ST CHEMOTHERAP Y V5869 LONG-TERM 01-23-2014 ST (CURRENT) [facility] USE OF MED CTR [facility] OTHER ST MEDICATIONS 7850 UNSPECIFIED 01-22-2014 JIBRINI MHA TACHYCARDIA 61152 NAUSEA WITH 01-22-2014 JIBRINI MHA VOMITING 95389 ABDOMINAL 01-22-2014 JIBRINI MHA PAIN, UNSPECIFIED SITE 4019 UNSPECIFIED 01-15-2014 JIBRINI MHA ESSENTIAL HYPERTENSIO N 2761 HYPOSMOLALI 01-07-2014 ST TY AND/OR [facility] HYPONATREMI PHYSICIANS A 99887 CHEST PAIN 01-07-2014 ST UNSPECIFIED [facility] PHYSICIANS 1950 MALIGNANT 01-03-2014 ONCOLOGY NEOPLASM OF HEMATOLOGY HEAD FACE CARE, IN AND NECK 34727 NEUTROPENIA 01-03-2014 ST [facility] UNSPECIFIED PHYSICIANS 2859 UNSPECIFIED 12-30-2013 [place] [address] DRUG 12-29-2013 ST INDUCED [facility] NEUTROPENIA MED CTR [facility] ST 4589 UNSPECIFIED 12-29-2013 ST [facility] HYPOTENSION MED CTR [facility] [address]185 DYSPLASIA 12-29-2013 ST OF ANUS [facility] PHYSICIANS 65780 OTHER 12-27-2013 RADIOLOGY NONSPECIFIC ASSOCIATES ABNORMAL OF [facility] FINDING OF LUNG FIELD 14481 DEHYDRATION 12-13-2013 ONCOLOGY HEMATOLOGY CARE, IN 5277 DISTURBANCE 12-13-2013 ONCOLOGY OF HEMATOLOGY SALIVARY CARE, IN SECRETION V5881 FITTING AND 12-04-2013 RAD[facility] ADJUSTMENT ASSOCIATES OF OF [facility] VASCULAR CATHETER 4660 ACUTE 11-22-2013 [facility] BRONCHITIS [facility] & REHABILI 7197 DIFFICULTY 11-22-2013 [facility] IN WALKING POINT CARE & REHABILI 49844 MUSCLE 11-22-2013 [facility] WEAKNESS POINT CARE (GENERALIZE & REHABILI D) 44715 DYSPHAGIA 11-22-2013 [facility] UNSPECIFIED POINT CARE & REHABILI V550 ATTENTION 11-22-2013 [facility] TO POINT CARE TRACHEOSTOM & REHABILI Y V551 ATTENTION 11-22-2013 [facility] TO POINT CARE GASTROSTOMY & REHABILI V5789 OTHER 11-22-2013 [facility] SPECIFIED POINT CARE REHABILITAT & REHABILI ION PROCEDURE OTHER 30769 UNSPECIFIED 11-04-2013 JIBRINI MHA CONSTIPATIO N 42367 UNSPECIFIED 11-01-2013 INDEPENDENT DENTAL CARIES ANESTHESIOL OGIST 1471 MALIGNANT 10-31-2013 RADIOLOGY NEOPLASM ASSOCIATES POSTERIOR OF NOT WALL NASOPHARYNX 2390 NEOPLASM 10-31-2013 RADIOLOGY UNSPECIFIED ASSOCIATES NATURE OF [facility] DIGESTIVE SYSTEM V5882 ENCOUNTER 10-31-2013 RADIOLOGY FITTING&ADJ ASSOCIATES OF [facility] NON-VASCULA R CATHETER NEC 2639 UNSPECIFIED 10-29-2013 INDEPENDENT PROTEIN-LESLIE ANESTHESIOL ORIE OGIST MALNUTRITIO N 7833 FEEDING 10-29-2013 ST DIFFICULTIE [facility] S AND PHYSICIANS MISMANAGEME NT 7842 SWELLING 10-29-2013 ST MASS OR [facility] LUMP IN PHYSICIANS HEAD AND NECK 34369 HYPOXEMIA 10-29-2013 ST [facility] PHYSICIANS 7991 RESPIRATORY 10-28-2013 HEAD & NECK ARREST SURGERY ASSOC 07714 LOC-REL 10-22-2013 ST EPILEPSY & [facility] ES W/SPS FT CHEMO W/O INTRACTABL EPIL 08919 HYPERTROPHY 10-22-2013 INDEPENDENT OF TONSILS ALONE ANESTHESIOL OGIST V1254 PERSONAL HX 10-22-2013 ST TIA & CI [facility] W/O FT CHEMO RESIDUAL DEFICITS V1582 PERS HX 10-22-2013 ST TOBACCO USE [facility] PRESENTING FT CHEMO HAZARDS HEALTH V5866 LONG-TERM 10-22-2013 ST USE OF [facility] ASPIRIN FT CHEMO V7284 UNSPECIFIED 10-22-2013 [facility] PRE-OPERATI PHYSICIANS VE EKG EXAMINATION V8542 BODY MASS 10-22-2013 ST INDEX [facility] 45.0-49.9 FT CHEMO ADULT 2469 UNSPECIFIED 10-02-2013 ST DISORDER [facility] OF THYROID MED [facility] [place] [address] UNSPECIFIED 10-02-2013 ST SLEEP [facility] APNEA MED CTR [facility] ST V641 SURG/OTH 10-02-2013 ST PROC NOT [facility] DONE MED CTR [facility] BECAUSE ST CONTRAINDIC ATION 4748 OTHER 09-30-2013 CHRONIC [facility] DISEASE OF [place] MCALIN TONSILS AND ADENOIDS 80674 OTHER 09-30-2013 DISEASES OF [facility] NASAL FT CHEMO CAVITY AND SINUSES 9330 FOREIGN 09-13-2013 ST BODY IN [place] PHARYNX PHYSICIANS 9085 LATE EFFECT 08-29-2013 [facility] OF FOREIGN CO BODY IN AMBULANCE ORIFICE TAXIN 9331 FOREIGN 08-29-2013 [place] BODY IN MEM [facility]OS[facility] LARYNX INC 2724 OTHER AND 07-05-2013 UNSPECIFIED [facility] PHYSICIANS HYPERLIPIDE JULIANE 16798 OSTEOARTHRO 07-05-2013 SIS UNSPEC [facility] WHETHER PHYSICIANS GEN/LOC LOWER LEG 41819 IMPAIRED 07-05-2013 GLUCOSE [place] TOLERANCE PHYSICIANS TEST V6809 OTHER ISSUE 07-05-2013 OF MEDICAL [facility] PHYSICIANS CERTIFICATE S V700 ROUTINE 07-05-2013 GENERAL [facility] MEDICAL PHYSICIANS EXAM@HEALTH CARE FACL 2720 PURE 03-14-2013 HYPERCHOLES [facility] TEROLEMIA PHYSICIANS V0481 NEED 03-14-2013 PROPHYLACTI [facility] C PHYSICIANS VACCINATION &INOCULATIO N FLU V7644 SPECIAL 03-14-2013 SCREENING [place] MALIGNANT PHYSICIANS NEOPLASM OF PROSTATE 28241 OBESITY, 02-12-[address] [facility] 57254 OTHER 02-12-2013 MALAISE AND [place] FATIGUE [facility] 64293 OTHER 02-12-2013 [facility] [place] [address] SPASM OF 01-01-2013 MUSCLE [facility] PHYSICIANS 7840 HEADACHE 10-15-2012 [facility] ASSOCI[facility] OF [facility] 7019 UNSPECIFIED 01-18-2012 [facility] HYPERTROPHI PHYSICIANS C&ATROPHIC CONDITION SKIN 7820 DISTURBANCE 01-18-2012 OF SKIN [place] SENSATION PHYSICIANS 54000 DIAB W/O 10-28-2011 COMP TYPE [place] II/UNS NOT PHYSICIANS STATED UNCNTRL 7804 DIZZINESS 06-20-2011 [facility] GIDDINESS 3674 PRESBYOPIA 06-07-2011 WICHO SHERMAN, OD, PSC V571 OTHER 06-02-2011 [facility] [place] [address] OTH 06-07-2010 [facility] [place] [address] HEMIPL 04-28-2010 [facility] UNSPEC SIDE HOSPITAL DUE CEREBRVASC DISEASE 14634 UNSPEC 01-15-2010 [facility] [place] WITHOUT MEDICALCENT MENTION ER INTRACT EPILEPSY V4589 OTHER 01-15-2010 POSTSURGICA [place] L STATUS MEDICALCENT OTHER ER 5849 ACUTE 12-11-2009 KIDNEY [place] FAILURE PHYSICIANS UNSPECIFIED 28285 GEN CONVUL 12-10-2009 [facility] E[facility] HEALTHCARE W/O MENTION IN INTRACT EPILEPSY 04770 LOC-REL 12-10-2009 EPILEPSY & [facility] ES W/SPS MED CTR W/INTRACTAB LE EPIL 87007 HTN CKD UNS 12-10-2009 W/CKD [facility] STAGE I MEDICALCENT THRU STAGE ER IV/UNS 4439 UNSPECIFIED 12-10-2009 PERIPHERAL [place] VASCULAR MEDICALCENT DISEASE ER 5859 CHRONIC 12-10-2009 KIDNEY [place] DISEASE MEDICALCENT UNSPECIFIED ER 7810 ABNORMAL 12-10-2009 [facility] INVOLUNTARY CO MOVEMENTS AMBULANCE TAXIN V854 BODY MASS 12-10-2009 INDEX 40 [facility] AND OVER MEDICALCENT ADULT ER 4011 ESSENTIAL 11-27-2009 HEAD & NECK HYPERTENSIO SURGERY N, BENIGN ASSOC 71946 ACUTE 11-27-2009 HEAD & NECK GINGIVITIS SURGERY NONPLAQUE ASSOC INDUCED 64945 STOMATITIS 11-27-2009 HEAD & NECK AND SURGERY MUCOSITIS ASSOC UNSPECIFIED 7802 SYNCOPE AND 11-17-2009 ST COLLAPSE [place] PHYSICIANS 75747 CEREBRAL 11-15-2009 THROMBOSIS [place] WITH MED CTR CEREBRAL INFARCTION 34130 PAIN IN 11-03-2009 RADIOLOGY JOINT, ASSOCIATES LOWER LEG PSC 80075 PAIN IN 09-28-2009 [facility] Allergies, Adverse Reactions, Alerts Clinical [...] 50 1- 2- 00 00 L ve SC 62 20 20 94 CA IL 01 [...] CA RA 40 17 17 56 RE GA 5 32 DE PH 5 AR MA [...] 50 7- 8- 00 00 L ve SC 62 20 20 94 CA IL 01 [...] CA RA 40 17 17 56 RE GA 5 32 DE PH 5 AR MA [...] 50 2- 7- 00 00 L ve SC 62 20 20 94 CA IL 01 [...] 50 8- 2- 00 00 L ve SC 62 20 20 94 CA IL 01 [...] 50 0- 5- 00 00 L ve SC 62 20 20 92 CA IL 01 [...] CA RA 40 17 17 56 RE GA 5 32 DE PH 5 AR MA [...] CY MG #5 CA PS UL E SC 00 03 04 12 6 00 TO [...] 50 2- 4- 00 00 L ve SC 62 20 20 92 CA IL 01 [...] 50 1- 4- 00 00 L ve SC 62 20 20 92 CA IL 01 [...] CA RA 40 17 17 98 RE GA 5 85 DE PH 5 AR MA [...] 4- 9- 00 L 58 FE ve SC 62 20 20 0 CA R IL 01 16 16 RE GA 0 CH 20 PH AE AR L MG MA G CY TA BL #5 ET AT 60 05 02 3 30 30 TO 88 SC Ac OR 50 -0 -0 0. TA 08 MINAYA ti VA 52 4- 9- 00 L [address] 58 20 20 0 CA R AT 00 15 16 RE GA IN 8 CH PH AE 40 AR [...] CA R CE 50 15 16 RE GA TA 1 CH M PH AE 50 [...] CA R AT 00 15 16 RE GA IN 8 CH PH AE 40 AR L MA G MG CY TA #5 BL ET LI 00 01 01 3 30 30 TO 90 SC Ac SI 59 -0 -0 0. TA 23 MINAYA ti NO 10 4- 4- 00 L 58 FE ve SC 40 20 20 0 CA R [place] 81 16 16 RE GA 0 CH 20 PH AE AR L MG MA G CY TA BL #5 ET LE 00 10 01 11 30 30 TO 89 SC Ac VO 78 -2 -0 0. TA 59 MINAYA ti TH 15 7- 4- 00 L 38 FE ve YR 18 20 20 0 CA R OX 11 15 16 RE GA IN 0 CH E PH AE 50 AR L MA G MC CY G TA #5 BL ET LE 16 12 12 6 15 30 TO 90 SC Ac VE 71 -2 -2 00 TA 10 MINAYA ti TI 40 1- 1- .0 L 89 FE ve RA 35 20 20 00 CA R CE 50 15 15 RE GA TA 1 CH M PH AE 50 [...] 9- 0- 00 L 33 FE ve SC 19 20 20 0 CA R [place] 71 15 15 RE GA 7 CH 20 PH AE AR L MG MA G CY TA BL #5 ET LE 00 10 11 11 30 30 TO 89 SC Ac VO 78 -2 -3 0. TA 59 MINAYA ti TH 15 7- 0- 00 L 38 FE ve YR 18 20 20 0 CA R OX 11 15 15 RE GA IN 0 CH E PH AE 50 AR L MA G MC CY G TA #5 BL ET AT 60 05 11 3 30 30 TO 88 SC Ac OR 50 -0 -3 0. TA 08 MINAYA ti VA 52 4- 0- 00 L [address] 58 20 20 0 CA R AT 00 15 15 RE GA IN 8 CH PH AE 40 AR [...] CA R CE 71 15 15 RE GA TA 2 CH M PH AE 50 [...] 9- 2- 00 L 33 FE ve SC 19 20 20 0 CA R [place] 71 15 15 RE GA 7 CH 20 PH AE AR L [...] CA R AT 00 15 15 RE GA IN 8 CH PH AE 40 AR L MA G MG CY TA #5 BL ET LE 00 10 10 11 30 30 TO 89 SC Ac VO 37 -2 -2 0. TA 59 MINAYA ti TH 81 7- 7- 00 L 38 FE ve YR 80 20 20 0 CA R OX 30 15 15 RE GA IN 1 CH E PH AE 50 AR L MA G MC CY G TA #5 BL ET LE 68 05 10 6 15 30 TO 88 SC Ac VE 00 -0 -1 00 TA 09 MINAYA ti TI 10 5- 2- .0 L 84 FE ve RA 11 20 20 00 CA R CE 70 15 15 RE GA TA 3 CH M PH AE 50 [...] 9- 7- 00 L 33 FE ve SC 19 20 20 0 CA R [place] 71 15 15 RE GA 7 CH 20 PH AE AR L MG MA G CY TA BL #5 ET LE 68 05 09 6 15 30 TO 88 SC Ac VE 00 -0 -1 00 TA 09 MINAYA ti TI 10 5- 1- .0 L 84 FE ve RA 11 20 20 00 CA R CE 70 15 15 RE GA TA 3 CH M PH AE 50 [...] CA R AT 00 15 15 RE GA IN 8 CH PH AE 40 AR L MA G MG CY TA #5 BL ET LE 00 12 09 11 30 30 TO 86 SC Ac VO 37 -0 -1 0. TA 73 MINAYA ti TH 81 2- 1- 00 L 82 FE ve YR 80 20 20 0 CA R OX 30 14 15 RE GA IN 1 CH E PH AE 50 [...] 9- 9- 00 L 33 FE ve SC 19 20 20 0 CA R [place] 71 15 15 RE GA 7 CH 20 PH AE AR L MG MA G CY TA BL #5 ET AL 00 06 08 11 30 30 TO 88 SC Ac LO 37 -1 -1 0. TA 42 MINAYA ti PU 80 2- 9- 00 L 15 FE ve RI 18 20 20 0 CA R NO 10 15 15 RE GA L 5 CH 30 PH AE 0 [...] CA R AT 30 15 15 RE GA IN 5 CH PH AE 40 AR L MA G MG CY TA #5 BL ET LE 68 05 08 6 15 30 TO 88 SC Ac VE 00 -0 -0 00 TA 09 MINAYA ti TI 10 5- 7- .0 L 84 FE ve RA 11 20 20 00 CA R CE 70 15 15 RE GA TA 3 CH M PH AE 50 [...] CA R OX 11 14 15 RE GA IN 0 CH E PH AE 50 [...] 8- 0- 00 L 31 FE ve SC 42 20 20 0 CA R [place] 00 15 15 RE GA 1 CH 20 PH AE AR L [...] CA R NO 40 15 15 RE GA L 5 CH 30 PH AE 0 AR L MG MA G CY TA BL #5 ET LE 68 05 07 6 15 30 TO 88 SC Ac VE 00 -0 -0 00 TA 09 MINAYA ti TI 10 5- 9- .0 L 84 FE ve RA 11 20 20 00 CA R CE 70 15 15 RE GA TA 3 CH M PH AE 50 [...] CA R OX 11 14 15 RE GA IN 0 CH E PH AE 50 AR L MA G MC CY G TA #5 BL ET AT 55 05 07 3 30 30 TO 88 SC Ac OR 11 -0 -0 0. TA 08 MINAYA ti VA 10 4- 3- 00 L [address] 12 20 20 0 CA R AT 30 15 15 RE GA IN 5 CH PH AE 40 AR [...] CA R NO 40 15 15 RE GA L 5 CH 30 PH AE 0 [...] 8- 8- 00 L 31 FE ve SC 19 20 20 0 CA R [place] 71 15 15 RE GA 7 CH 20 PH AE AR L MG MA G CY TA BL #5 ET LE 68 05 06 6 15 30 TO 88 SC Ac VE 00 -0 -0 00 TA 09 MINAYA ti TI 10 5- 5- .0 L 84 FE ve RA 11 20 20 00 CA R CE 70 15 15 RE GA TA 3 CH M PH AE 50 AR L 0 MA G MG CY TA #5 BL ET LE 00 12 05 11 30 30 TO 86 SC Ac VO 78 -0 -2 0. TA 73 MINAYA ti TH 15 2- 7- 00 L 82 FE ve YR 18 20 20 0 CA R OX 11 14 15 RE GA IN 0 CH E PH AE 50 AR L MA G MC CY G TA #5 BL ET AT 55 05 05 3 30 30 TO 88 SC Ac OR 11 -0 -2 0. TA 08 MINAYA ti VA 10 4- 7- 00 L [address] 12 20 20 0 CA R AT 30 15 15 RE GA IN 5 CH PH AE 40 AR [...] CA R CE 70 15 15 RE GA TA 3 CH M PH AE 50 AR L 0 MA G MG CY TA #5 BL ET NO 00 03 05 2 60 30 TO 87 SC Ac RT 59 -0 -0 0. TA 56 MINAYA ti RI 15 4- 4- 00 L 49 FE ve PT 78 20 20 0 CA R YL 80 15 15 RE GA IN 5 CH E PH AE HC AR L L MA G 50 CY MG #5 CA P AT 55 04 04 3 30 30 TO 88 SC Ac OR 11 -3 -3 0. TA 05 MINAYA ti VA 10 0- 0- 00 L [address] 12 20 20 0 CA R AT 30 15 15 RE GA IN 5 CH PH AE 40 AR L MA G MG CY TA #5 BL ET AL 00 06 04 11 30 30 TO 85 SC Ac LO 59 -0 -3 0. TA 28 MINAYA ti PU 15 2- 0- 00 L 63 FE ve RI 54 20 20 0 CA R NO 40 14 15 RE GA L 5 CH 30 PH AE 0 AR L MG MA G CY TA BL #5 ET LI 68 04 04 2 30 30 TO 88 SC Ac SI 00 -2 -2 0. TA 03 MINAYA ti NO 10 8- 8- 00 L 31 FE ve SC 20 20 20 0 CA R [place] 80 15 15 RE GA 8 CH 20 PH AE AR L MG MA G CY TA BL #5 ET LE 00 12 04 11 30 30 TO 86 SC Ac VO 78 -0 -1 0. TA 73 MINAYA ti TH 15 2- 6- 00 L 82 FE ve YR 18 20 20 0 CA R OX 11 14 15 RE GA IN 0 CH E PH AE 50 AR L MA G MC CY G TA #5 BL ET LE 68 04 04 6 15 30 TO 84 SC Ac VE 00 -2 -0 00 TA 95 MINAYA ti TI 10 1- 6- .0 L 14 FE ve RA 11 20 20 00 CA R CE 70 14 15 RE GA TA 3 CH M PH AE 50 AR L 0 MA G MG CY TA #5 BL ET NO 00 03 04 2 60 30 TO 87 SC Ac RT 59 -0 -0 0. TA 56 MINAYA ti RI 15 4- 6- 00 L 49 FE ve PT 78 20 20 0 CA R YL 80 15 15 RE GA IN 5 CH E PH AE HC AR L L MA G 50 CY MG #5 CA P AL 00 06 03 11 30 30 TO 85 SC Ac LO 59 -0 -2 0. TA 28 MINAYA ti PU 15 2- 7- 00 L 63 FE ve RI 54 20 20 0 CA R NO 40 14 15 RE GA L 5 CH 30 PH AE 0 AR L MG MA G CY TA BL #5 ET AT 55 04 03 3 30 30 TO 84 SC Ac OR 11 -0 -2 0. TA 80 MINAYA ti VA 10 2- 7- 00 L [address] 12 20 20 0 CA R AT 30 14 15 RE GA IN 5 CH PH AE 40 AR L MA G MG CY TA #5 BL ET LI 68 12 03 2 30 30 TO 87 SC Ac SI 00 -3 -2 0. TA 02 MINAYA ti NO 10 1- 5- 00 L 65 FE ve SC 20 20 20 0 CA R [place] 80 14 15 RE GA 8 CH 20 PH AE AR L MG MA G CY TA BL #5 ET NO 00 03 03 2 60 30 TO 87 SC Ac RT 59 -0 -0 0. TA 56 MINAYA ti RI 15 4- 4- 00 L 49 FE ve PT 78 20 20 0 CA R YL 80 15 15 RE GA IN 5 CH E PH AE HC [...] CA R CE 70 14 15 RE GA TA 3 CH M PH AE 50 AR L 0 MA G MG CY TA #5 BL ET LI 68 12 02 2 30 30 TO 87 SC Ac SI 00 -3 -2 0. TA 02 MINAYA ti NO 10 1- 1- 00 L 65 FE ve SC 20 20 20 0 CA R [place] 80 14 15 RE GA 8 CH 20 PH AE AR L MG MA G CY TA BL #5 ET AL 00 06 02 11 30 30 TO 85 SC Ac LO 59 -0 -2 0. TA 28 MINAYA ti PU 15 2- 1- 00 L 63 FE ve RI 54 20 20 0 CA R NO 40 14 15 RE GA L 5 CH 30 PH AE 0 AR L MG MA G CY TA BL #5 ET AT 55 04 02 3 30 30 TO 84 SC Ac OR 11 -0 -1 0. TA 80 MINAYA ti VA 10 2- 9- 00 L [address] 12 20 20 0 CA R AT 30 14 15 RE GA IN 5 CH PH AE 40 AR L MA G MG CY TA #5 BL ET LE 00 12 02 11 30 30 TO 86 SC Ac VO 78 -0 -1 0. TA 73 MINAYA ti TH 15 2- 7- 00 L 82 FE ve YR 18 20 20 0 CA R OX 19 14 15 RE GA IN 2 CH E PH AE 50 AR L MA G MC CY G TA #5 BL ET LE 68 04 01 6 15 30 TO 84 SC Ac VE 00 -2 -2 00 TA 95 MINAYA ti TI 10 1- 9- .0 L 14 FE ve RA 11 20 20 00 CA R CE 70 14 15 RE GA TA 3 CH M PH AE 50 AR L 0 MA G MG CY TA #5 BL ET NO 00 06 01 2 60 30 TO 85 SC Ac RT 59 -0 -2 0. TA 28 MINAYA ti RI 15 2- 9- 00 L 65 FE ve PT 78 20 20 0 CA R YL 80 14 15 RE GA IN 5 CH E PH AE HC [...] 1- 1- 00 L 65 FE ve SC 42 20 20 0 CA R IL 01 14 14 RE GA 0 CH 20 PH AE AR L MG MA G CY TA BL #5 ET AL 00 06 12 11 30 30 TO 85 SC Ac LO 59 -0 -3 0. TA 28 MINAYA ti PU 15 2- 0- 00 L 63 FE ve RI 54 20 20 0 CA R NO 40 14 14 RE GA L 5 CH 30 PH AE 0 [...] CA R CE 70 14 14 RE GA TA 3 CH M PH AE 50 AR L 0 MA G MG CY TA #5 BL ET AT 60 04 12 3 30 30 TO 84 SC Ac OR 50 -0 -3 0. TA 80 MINAYA ti VA 52 2- 0- 00 [address] 58 20 20 0 CA R AT 00 14 14 RE GA IN 8 CH PH AE 40 AR L MA G MG CY TA #5 BL ET NO 00 06 12 2 60 30 TO 85 SC Ac RT 59 -0 -3 0. TA 28 MINAYA ti RI 15 2- 0- 00 L 65 FE ve PT 78 20 20 0 CA R YL 80 14 14 RE GA IN 5 CH E PH AE HC AR L L MA G 50 CY MG #5 CA P LE 00 12 12 11 30 30 TO 86 SC Ac VO 78 -0 -3 0. TA 73 MINAYA ti TH 15 2- 0- 00 L 82 FE ve YR 18 20 20 0 CA R OX 19 14 14 RE GA IN 2 CH E PH AE 50 AR L MA G MC CY G TA #5 BL ET LE 00 12 12 11 30 30 TO 86 SC Ac VO 78 -0 -0 0. TA 73 MINAYA ti TH 15 2- 2- 00 L 82 FE ve YR 18 20 20 0 CA R OX 11 14 14 RE GA IN 0 CH E PH AE 50 [...] CA R AT 00 14 14 RE GA IN 8 CH PH AE 40 AR L MA G MG CY TA #5 BL ET LI 00 05 12 2 30 30 TO 85 SC Ac SI 18 -0 -0 0. TA 04 MINAYA ti NO 50 1- 2- 00 L 71 FE ve SC 10 20 20 0 CA R IL 21 14 14 RE GA 0 CH 20 PH AE AR L [...] 22 6- 7- 00 21 IN ve GA 90 20 20 0 CA 1 I [...] I RA 40 14 14 RE MH GA 5 AM DE PH AD 5 AR [...] -0 -0 0. ME 22 BR ti SC 40 1- 1- 00 74 IN ve [...] 22 6- 6- 00 21 IN ve GA 90 20 20 0 CA 1 I [...] -1 -1 0. ME 79 BR ti SC 80 6- 6- 00 21 IN ve OL 01 20 20 0 CA 2 I OL 80 14 14 RE MH 5 AM TA PH AD RT AR B RA MA TE CY 25 MG TA B SC 00 09 09 5 40 1 HO [...] 50 1- 1- 00 50 IN ve SC 10 20 20 0 CA 7 I [...] B MG MA CY TA BL ET SC 00 08 08 5 70 2 HO [...] CA R CE 70 14 14 RE GA TA 3 CH M PH AE 50 AR L 0 MA G MG CY TA BL ET LI 68 05 06 2 30 30 TO 85 SC Ac SI 00 -0 -2 0. TA 04 MINAYA ti NO 10 1- 6- 00 L 71 FE ve SC 20 20 20 0 CA R IL 80 14 14 RE GA 8 CH 20 PH AE AR L MG MA G CY TA BL ET AT 60 04 06 3 30 30 TO 84 SC Ac OR 50 -0 -0 0. TA 80 MINAYA ti VA 52 2- 3- 00 L [address] 58 20 20 0 CA R AT 00 14 14 RE GA IN 8 CH PH AE 40 AR L MA G MG CY TA BL ET NO 00 06 06 2 60 30 TO 85 SC Ac RT 59 -0 -0 0. TA 28 MINAYA ti RI 15 2- 2- 00 L 65 FE ve PT 78 20 20 0 CA R YL 80 14 14 RE GA IN 5 CH E PH AE HC AR L L MA G 50 CY MG CA P AL 00 06 06 11 30 30 TO 85 SC Ac LO 59 -0 -0 0. TA 28 MINAYA ti PU 15 2- 2- 00 L 63 FE ve RI 54 20 20 0 CA R NO 40 14 14 RE GA L 5 CH 30 PH AE 0 AR L MG MA G CY TA BL ET LE 68 04 05 6 15 30 TO 84 SC Ac VE 00 -2 -2 00 TA 95 MINAYA ti TI 10 1- 7- .0 L 14 FE ve RA 11 20 20 00 CA R CE 70 14 14 RE GA TA 3 CH M PH AE 50 AR L 0 MA G MG CY TA BL ET LI 68 05 05 2 30 30 TO 85 SC Ac SI 00 -0 -0 0. TA 04 MINAYA ti NO 10 1- 1- 00 L 71 FE ve SC 20 20 20 0 CA R IL 80 14 14 RE GA 8 CH 20 PH AE AR L MG MA G CY TA BL ET AT 60 04 05 3 30 30 TO 84 SC Ac OR 50 -0 -0 0. TA 80 MINAYA ti VA 52 2- 1- 00 L [address] 58 20 20 0 CA R AT 00 14 14 RE GA IN 8 CH PH AE 40 AR L MA G MG CY TA BL ET NO 00 02 05 2 60 30 TO 84 SC Ac RT 59 -1 -0 0. TA 44 MINAYA ti RI 15 8- 1- 00 L 13 FE ve PT 78 20 20 0 CA R YL 80 14 14 RE GA IN 5 CH E PH AE HC AR L L MA G 50 CY MG CA P LE 00 04 05 3 30 30 TO 84 SC Ac VO 78 -0 -0 0. TA 80 MINAYA ti TH 15 2- 1- 00 L 05 FE ve YR 18 20 20 0 CA R OX 41 14 14 RE GA IN 0 CH E PH AE 10 AR L 0 MA G MC CY G TA BL ET LE 68 04 04 6 15 30 TO 84 SC Ac VE 18 -2 -2 00 TA 95 MINAYA ti TI 00 1- 1- .0 L 14 FE ve RA 11 20 20 00 CA R CE 30 14 14 RE GA TA 2 CH M PH AE 50 AR L 0 MA G MG CY TA BL ET SC 68 02 04 3 30 30 TO 84 SC Ac AV 18 -1 -0 0. TA 44 MINAYA ti 00 8- 2- 00 L 12 FE ve TA 48 20 20 0 CA R TI 80 14 14 RE GA N 2 CH SO PH AE DI AR L UM MA G CY 80 MG TA B LI 00 07 04 2 30 30 TO 82 SC Ac SI 18 -3 -0 0. TA 93 MINAYA ti NO 50 1- 2- 00 L 25 FE ve SC 10 20 20 0 CA R IL 21 13 14 RE GA 0 CH 20 PH AE AR L MG MA G CY TA BL ET AT 60 04 04 3 30 30 TO 84 SC Ac OR 50 -0 -0 0. TA 80 MINAYA ti VA 52 2- 2- 00 L [address] 58 20 20 0 CA R AT 00 14 14 RE GA IN 8 CH PH AE 40 AR L MA G MG CY TA BL ET AL 00 05 04 11 30 30 TO 82 SC Ac LO 59 -3 -0 0. TA 50 MINAYA ti PU 15 0- 2- 00 L 79 FE ve RI 54 20 20 0 CA R NO 40 13 14 RE GA L 5 CH 30 PH AE 0 AR L MG MA G CY TA BL ET LE 00 04 04 3 30 30 TO 84 SC Ac VO 78 -0 -0 0. TA 80 MINAYA ti TH 15 2- 2- 00 L 05 FE ve YR 18 20 20 0 CA R OX 41 14 14 RE GA IN 0 CH E PH AE 10 AR L 0 MA G MC CY G TA BL ET LE 68 09 03 6 15 30 TO 83 SC Ac VE 18 -1 -1 00 TA 25 MINAYA ti TI 00 1- 9- .0 L 94 FE ve RA 11 20 20 00 CA R CE 30 13 14 RE GA TA 2 CH M PH AE 50 AR L 0 MA G MG CY TA BL ET NO 00 02 03 2 60 30 TO 84 SC Ac RT 59 -1 -1 0. TA 44 MINAYA ti RI 15 8- 7- 00 L 13 FE ve PT 78 20 20 0 CA R YL 80 14 14 RE GA IN 5 CH E PH AE HC AR L L MA G 50 CY MG CA P LI 00 10 02 2 30 30 TO 83 SC Ac SI 18 -3 -1 0. TA 64 MINAYA ti NO 50 1- 8- 00 L 87 FE ve SC 10 20 20 0 CA R IL 21 13 14 RE GA 0 CH 20 PH AE AR L MG MA G CY TA BL ET LE 68 09 02 6 15 30 TO 83 SC Ac VE 18 -1 -1 00 TA 25 MINAYA ti TI 00 1- 8- .0 L 94 FE ve RA 11 20 20 00 CA R CE 30 13 14 RE GA TA 2 CH M PH AE 50 AR L 0 MA G MG CY TA BL ET LE 00 12 02 11 30 30 TO 83 SC Ac VO 52 -1 -1 0. TA 95 MINAYA ti TH 71 2- 8- 00 L 40 FE ve YR 34 20 20 0 CA R OX 21 13 14 RE GA IN 0 CH E PH AE 50 AR L MA G MC CY G TA BL ET SC 68 02 02 3 30 30 TO 84 SC Ac AV 18 -1 -1 0. TA 44 MINAYA ti 00 8- 8- 00 L 12 FE ve TA 48 20 20 0 CA R TI 80 14 14 RE GA N 2 CH SO PH AE DI AR L UM MA G CY 80 MG TA B NO 00 02 02 2 60 30 TO 84 SC Ac RT 59 -1 -1 0. TA 44 MINAYA ti RI 15 8- 8- 00 L 13 FE ve PT 78 20 20 0 CA R YL 80 14 14 RE GA IN 5 CH E PH AE HC AR L L MA G 50 CY MG CA P AL 00 05 02 11 30 30 TO 82 SC Ac LO 59 -3 -1 0. TA 50 MINAYA ti PU 15 0- 8- 00 L 79 FE ve RI 54 20 20 0 CA R NO 40 13 14 RE GA L 5 CH 30 PH AE 0 AR L MG MA G CY TA BL ET LE 68 09 01 6 15 30 TO 83 SC Ac VE 18 -1 -1 00 TA 25 MINAYA ti TI 00 1- 8- .0 L 94 FE ve RA 11 20 20 00 CA R CE 30 13 14 RE GA TA 2 CH M PH AE 50 AR L 0 MA G MG CY TA BL ET LE 00 12 01 11 30 30 TO 83 SC Ac VO 52 -1 -1 0. TA 95 MINAYA ti TH 71 2- 5- 00 L 40 FE ve YR 34 20 20 0 CA R OX 21 13 14 RE GA IN 0 CH E PH AE 50 AR L MA G MC CY G TA BL ET NO 00 11 01 2 60 30 TO 83 SC Ac RT 59 -0 -1 0. TA 67 MINAYA ti RI 15 4- 5- 00 L 02 FE ve PT 78 20 20 0 CA R YL 80 13 14 RE GA IN 5 CH E PH AE HC AR L L MA G 50 CY MG CA P AL 00 05 01 11 30 30 TO 82 SC Ac LO 59 -3 -0 0. TA 50 MINAYA ti PU 15 0- 6- 00 L 79 FE ve RI 54 20 20 0 CA R NO 40 13 14 RE GA L 5 CH 30 PH AE 0 AR L MG MA G CY TA BL ET SC 68 02 01 3 30 30 TO 81 SC Ac AV 18 -0 -0 0. TA 58 MINAYA ti 00 1- 6- 00 L 78 FE ve TA 48 20 20 0 CA R TI 80 13 14 RE GA N 2 CH SO PH AE DI AR L UM MA G CY 80 MG TA B LI 00 10 12 2 30 30 TO 83 SC Ac SI 18 -3 -3 0. TA 64 MINAYA ti NO 50 1- 1- 00 L 87 FE ve SC 10 20 20 0 CA R IL 21 13 13 RE GA 0 CH 20 PH AE AR L MG MA G CY TA BL ET LE 68 09 12 6 15 30 TO 83 SC Ac VE 18 -1 -1 00 TA 25 MINAYA ti TI 00 1- 6- .0 L 94 FE ve RA 11 20 20 00 CA R CE 30 13 13 RE GA TA 2 CH M PH AE 50 AR L 0 MA G MG CY TA BL ET NO 00 11 12 2 60 30 TO 83 SC Ac RT 59 -0 -1 0. TA 67 MINAYA ti RI 15 4- 6- 00 L 02 FE ve PT 78 20 20 0 CA R YL 80 13 13 RE GA IN 5 CH E PH AE HC AR L L MA G 50 CY MG CA P LE 00 12 12 11 30 30 TO 83 SC Ac VO 52 -1 -1 0. TA 95 MINAYA ti TH 71 2- 2- 00 L 40 FE ve YR 34 20 20 0 CA R OX 21 13 13 RE GA IN 0 CH E PH AE 50 AR L MA G MC CY G TA BL ET SC 68 02 12 3 30 30 TO 81 SC Ac AV 18 -0 -0 0. TA 58 MINAYA ti 00 1- 2- 00 L 78 FE ve TA 48 20 20 0 CA R TI 80 13 13 RE GA N 2 CH SO PH AE DI AR L UM MA G CY 80 MG TA B AL 00 05 12 11 30 30 TO 82 SC Ac LO 59 -3 -0 0. TA 50 MINAYA ti PU 15 0- 2- 00 L 79 FE ve RI 54 20 20 0 CA R NO 40 13 13 RE GA L 5 CH 30 PH AE 0 AR L MG MA G CY TA BL ET LE 68 09 11 6 15 30 TO 83 SC Ac VE 18 -1 -1 00 TA 25 MINAYA ti TI 00 1- 8- .0 L 94 FE ve RA 11 20 20 00 CA R CE 30 13 13 RE GA TA 2 CH M PH AE 50 AR L 0 MA G MG CY TA BL ET LE 00 11 11 2 30 30 TO 83 SC Ac VO 78 -1 -1 0. TA 75 MINAYA ti TH 15 5- 5- 00 L 98 FE ve YR 18 20 20 0 CA R OX 01 13 13 RE GA IN 0 CH E PH AE 25 AR L MA G MC CY G TA BL ET LI 00 10 11 2 30 30 TO 83 SC Ac SI 18 -3 -0 0. TA 64 MINAYA ti NO 50 1- 7- 00 L 87 FE ve SC 10 20 20 0 CA R IL 21 13 13 RE GA 0 CH 20 PH AE AR L MG MA G CY TA BL ET NO 00 11 11 2 60 30 TO 83 SC Ac RT 59 -0 -0 0. TA 67 MINAYA ti RI 15 4- 4- 00 L 02 FE ve PT 78 20 20 0 CA R YL 80 13 13 RE GA IN 5 CH E PH AE HC AR L L MA G 50 CY MG CA P LE 68 09 10 6 15 30 TO 83 SC Ac VE 18 -1 -1 00 TA 25 MINAYA ti TI 00 1- 4- .0 L 94 FE ve RA 11 20 20 00 CA R CE 30 13 13 RE GA TA 2 CH M PH AE 50 AR L 0 MA G MG CY TA BL ET SC 68 02 10 3 30 30 TO 81 SC Ac AV 18 -0 -1 0. TA 58 MINAYA ti 00 1- 1- 00 L 78 FE ve TA 48 20 20 0 CA R TI 80 13 13 RE GA N 2 CH SO PH AE DI AR L UM MA G CY 80 MG TA B AL 00 05 10 11 30 30 TO 82 SC Ac LO 59 -3 -1 0. TA 50 MINAYA ti PU 15 0- 1- 00 L 79 FE ve RI 54 20 20 0 CA R NO 40 13 13 RE GA L 5 CH 30 PH AE 0 AR L MG MA G CY TA BL ET LI 00 07 10 2 30 30 TO 82 SC Ac SI 18 -3 -1 0. TA 93 MINAYA ti NO 50 1- 1- 00 L 25 FE ve SC 10 20 20 0 CA R IL 21 13 13 RE GA 0 CH 20 PH AE AR L MG MA G CY TA BL ET NO 00 07 10 2 60 30 TO 82 SC Ac RT 59 -3 -0 0. TA 93 MINAYA ti RI 15 1- 2- 00 L 24 FE ve PT 78 20 20 0 CA R YL 80 13 13 RE GA IN 5 CH E PH AE HC AR L L MA G 50 CY MG CA P LE 68 09 09 6 15 30 TO 83 SC Ac VE 18 -1 -1 00 TA 25 MINAYA ti TI 00 1- 1- .0 L 94 FE ve RA 11 20 20 00 CA R CE 30 13 13 RE GA TA 2 CH M PH AE 50 AR L 0 MA G MG CY TA #5 BL ET NO 00 07 09 2 60 30 TO 82 SC Ac RT 59 -3 -0 0. TA 93 MINAYA ti RI 15 1- 3- 00 L 24 FE ve PT 78 20 20 0 CA R YL 80 13 13 RE GA IN 5 CH E PH AE HC AR L L MA G 50 CY MG #5 CA P SC 68 02 08 3 30 30 TO 81 SC Ac AV 18 -0 -3 0. TA 58 MINAYA ti 00 1- 0- 00 L 78 FE ve TA 48 20 20 0 CA R TI 80 13 13 RE GA N 2 CH SO PH AE DI AR L UM MA G CY 80 #5 MG TA B AL 00 05 08 11 30 30 TO 82 SC Ac LO 59 -3 -3 0. TA 50 MINAYA ti PU 15 0- 0- 00 L 79 FE ve RI 54 20 20 0 CA R NO 40 13 13 RE GA L 5 CH 30 PH AE 0 AR L MG MA G CY TA BL #5 ET LI 00 07 08 2 30 30 TO 82 SC Ac SI 18 -3 -3 0. TA 93 MINAYA ti NO 50 1- 0- 00 L 25 FE ve SC 10 20 20 0 CA R IL 21 13 13 RE GA 0 CH 20 PH AE AR L MG MA G CY TA BL #5 ET LE 68 02 08 6 15 30 TO 81 SC Ac VE 18 -1 -1 00 TA 70 MINAYA ti TI 00 5- 3- .0 L 71 FE ve RA 11 20 20 00 CA R CE 30 13 13 RE GA TA 2 CH M PH AE 50 AR L 0 MA G MG CY TA BL ET NO 00 07 07 2 60 30 TO 82 SC Ac RT 59 -3 -3 0. TA 93 MINAYA ti RI 15 1- 1- 00 L 24 FE ve PT 78 20 20 0 CA R YL 80 13 13 RE GA IN 5 CH E PH AE HC AR L L MA G 50 CY MG CA P SC 68 02 07 3 30 30 TO 81 SC Ac AV 18 -0 -1 0. TA 58 MINAYA ti 00 1- 7- 00 L 78 FE ve TA 48 20 20 0 CA R TI 80 13 13 RE GA N 2 CH SO PH AE DI AR L UM MA G CY 80 MG TA B AL 00 05 07 11 30 30 TO 82 SC Ac LO 59 -3 -1 0. TA 50 MINAYA ti PU 15 0- 7- 00 L 79 FE ve RI 54 20 20 0 CA R NO 40 13 13 RE GA L 5 CH 30 PH AE 0 AR L MG MA G CY TA BL ET LE 68 02 07 6 15 30 TO 81 SC Ac VE 18 -1 -1 00 TA 70 MINAYA ti TI 00 5- 1- .0 L 71 FE ve RA 11 20 20 00 CA R CE 30 13 13 RE GA TA 2 CH M PH AE 50 AR L 0 MA G MG CY TA BL ET LI 00 07 07 0 30 30 TO 82 SC Ac SI 18 -0 -0 0. TA 77 MINAYA ti NO 50 9- 9- 00 L 54 FE ve SC 10 20 20 0 CA R IL 21 13 13 RE GA 0 CH 20 PH AE AR L MG MA G CY TA BL ET LE 00 05 07 2 30 30 TO 82 SC Ac VO 37 -0 -0 0. TA 34 MINAYA ti TH 81 8- 3- 00 L 41 FE ve YR 80 20 20 0 CA R OX 00 13 13 RE GA IN 1 CH E PH AE 25 AR L MA G MC CY G TA BL ET NO 00 04 06 2 60 30 TO 82 SC Ac RT 59 -1 -2 0. TA 17 MINAYA ti RI 15 5- 8- 00 L 15 FE ve PT 78 20 20 0 CA R YL 80 13 13 RE GA IN 5 CH E PH AE HC [...] CA R CE 30 13 13 RE GA TA 2 CH M PH AE 50 AR L 0 MA G MG CY TA BL ET LE 00 05 06 2 30 30 TO 82 SC Ac VO 37 -0 -0 0. TA 34 MINAYA ti TH 81 8- 5- 00 L 41 FE ve YR 80 20 20 0 CA R OX 00 13 13 RE GA IN 1 CH E PH AE 25 AR L MA G MC CY G TA BL ET AL 00 05 05 11 30 30 TO 82 SC Ac LO 59 -3 -3 0. TA 50 MINAYA ti PU 15 0- 0- 00 L 79 FE ve RI 54 20 20 0 CA R NO 40 13 13 RE GA L 5 CH 30 PH AE 0 AR L MG MA G CY TA BL ET NO 00 04 05 2 60 30 TO 82 SC Ac RT 59 -1 -3 0. TA 17 MINAYA ti RI 15 5- 0- 00 L 15 FE ve PT 78 20 20 0 CA R YL 80 13 13 RE GA IN 5 CH E PH AE HC AR L L MA G 50 CY MG CA P SC 68 02 05 3 30 30 TO 81 SC Ac AV 18 -0 -2 0. TA 58 MINAYA ti 00 1- 2- 00 L 78 FE ve TA 48 20 20 0 CA R TI 80 13 13 RE GA N 2 CH SO PH AE DI AR L UM MA G CY 80 MG TA B LE 68 02 05 6 15 30 TO 81 SC Ac VE 18 -1 -1 00 TA 70 MINAYA ti TI 00 5- 3- .0 L 71 FE ve RA 11 20 20 00 CA R CE 30 13 13 RE GA TA 2 CH M PH AE 50 AR L 0 MA G MG CY TA BL ET LE 00 05 05 2 30 30 TO 82 SC Ac VO 37 -0 -0 0. TA 34 MINAYA ti TH 81 8- 8- 00 L 41 FE ve YR 80 20 20 0 CA R OX 00 13 13 RE GA IN 1 CH E PH AE 25 AR L MA G MC CY G TA BL ET NO 00 04 04 2 60 30 TO 82 SC Ac RT 59 -1 -2 0. TA 17 MINAYA ti RI 15 5- 6- 00 L 15 FE ve PT 78 20 20 0 CA R YL 80 13 13 RE GA IN 5 CH E PH AE HC AR L L MA G 50 CY MG CA P AL 00 05 04 11 30 30 TO 79 SC Ac LO 59 -0 -1 0. TA 42 MINAYA ti PU 15 7- 8- 00 L 42 FE ve RI 54 20 20 0 CA R NO 40 12 13 RE GA L 5 CH 30 PH AE 0 AR L MG MA G CY TA BL ET LE 68 02 04 6 15 30 TO 81 SC Ac VE 18 -1 -1 00 TA 70 MINAYA ti TI 00 5- 5- .0 L 71 FE ve RA 11 20 20 00 CA R CE 30 13 13 RE GA TA 2 CH M PH AE 50 AR L 0 MA G MG CY TA BL ET NO 00 01 03 2 60 30 TO 81 SC Ac RT 59 -2 -2 0. TA 51 MINAYA ti RI 15 4- 8- 00 L 29 FE ve PT 78 20 20 0 CA R YL 80 13 13 RE GA IN 5 CH E PH AE HC AR L L MA G 50 CY MG CA P LE 68 02 03 6 15 30 TO 81 SC Ac VE 18 -1 -1 00 TA 70 MINAYA ti TI 00 5- 5- .0 L 71 FE ve RA 11 20 20 00 CA R CE 30 13 13 RE GA TA 2 CH M PH AE 50 AR L 0 MA G MG CY TA BL ET SC 68 02 03 3 30 30 TO 81 SC Ac AV 18 -0 -0 0. TA 58 MINAYA ti 00 1- 7- 00 L 78 FE ve TA 48 20 20 0 CA R TI 80 13 13 RE GA N 2 CH SO PH AE DI AR L UM MA G CY 80 MG TA B LI 00 07 03 3 90 90 TO 79 SC Ac SI 18 -0 -0 0. TA 88 MINAYA ti NO 50 6- 4- 00 L 56 FE ve SC 10 20 20 0 CA R IL 21 12 13 RE GA 0 CH 20 PH AE AR L MG MA G CY TA BL ET LE 00 11 02 2 30 30 TO 80 SC Ac VO 37 -1 -2 0. TA 90 MINAYA ti TH 81 2- 7- 00 L 11 FE ve YR 80 20 20 0 CA R OX 00 12 13 RE GA IN 1 CH E PH AE 25 AR L MA G MC CY G TA BL ET AL 00 05 02 11 30 30 TO 79 SC Ac LO 59 -0 -2 0. TA 42 MINAYA ti PU 15 7- 7- 00 L 42 FE ve RI 54 20 20 0 CA R NO 40 12 13 RE GA L 5 CH 30 PH AE 0 AR L MG MA G CY TA BL ET NO 00 01 02 2 60 30 TO 81 SC Ac RT 59 -2 -2 0. TA 51 MINAYA ti RI 15 4- 7- 00 L 29 FE ve PT 78 20 20 0 CA R YL 80 13 13 RE GA IN 5 CH E PH AE HC AR L L MA G 50 CY MG CA P LE 68 02 02 6 15 30 TO 81 SC Ac VE 18 -1 -1 00 TA 70 MINAYA ti TI 00 5- 5- .0 L 71 FE ve RA 11 20 20 00 CA R CE 30 13 13 RE GA TA 2 CH M PH AE 50 AR L 0 MA G MG CY TA #5 BL ET SC 68 02 02 3 30 30 TO 81 SC Ac AV 18 -0 -0 0. TA 58 MINAYA ti 00 1- 1- 00 L 78 FE ve TA 48 20 20 0 CA R TI 80 13 13 RE GA N 2 CH SO PH AE DI AR L UM MA G CY 80 #5 MG TA B NO 00 01 01 2 60 30 TO 81 SC Ac RT 59 -2 -2 0. TA 51 MINAYA ti RI 15 4- 4- 00 L 29 FE ve PT 78 20 20 0 CA R YL 80 13 13 RE GA IN 1 CH E PH AE HC AR L L MA G 50 CY MG #5 CA P LE 68 07 01 6 15 30 TO 79 SC Ac VE 18 -1 -1 00 TA 97 MINAYA ti TI 00 9- 6- .0 L 87 FE ve RA 11 20 20 00 CA R CE 30 12 13 RE GA TA 2 CH M PH AE 50 AR L 0 MA G MG CY TA #5 BL ET AL 00 05 01 11 30 30 TO 79 SC Ac LO 59 -0 -0 0. TA 42 [facility]AY[facility] ti PU 15 7- 9- 00 L 42 FE ve RI 54 20 20 0 CA R NO 40 12 13 RE GA L 5 CH 30 PH AE 0 AR L MG MA G CY TA BL #5 ET LE 00 11 01 2 30 30 TO 80 SC Ac VO 37 -1 -0 0. TA 90 MINAYA ti TH 81 2- 9- 00 L 11 FE ve YR 80 20 20 0 CA R OX 00 12 13 RE GA IN 1 CH E PH AE 25 AR L MA G MC CY G TA #5 BL ET NO 00 10 12 2 60 30 TO 80 SC Ac RT 59 -2 -2 0. TA 75 MINAYA ti RI 15 4- 6- 00 L 26 FE ve PT 78 20 20 0 CA R YL 80 12 12 RE GA IN 1 CH E PH AE HC AR L L MA G 50 CY MG #5 CA P LE 68 07 12 6 15 30 TO 79 SC Ac VE 18 -1 -1 00 TA 97 MINAYA ti TI 00 9- 8- .0 L 87 FE ve RA 11 20 20 00 CA R CE 30 12 12 RE GA TA 2 CH M PH AE 50 AR L 0 MA G MG CY TA #5 BL ET SC 68 01 11 3 30 30 TO 78 SC Ac AV 18 -1 -2 0. TA 47 MINAYA ti 00 8- 3- 00 L 65 FE ve TA 48 20 20 0 CA R TI 80 12 12 RE GA N 2 CH SO PH AE DI AR L UM MA G CY 80 #5 MG TA B NO 00 10 11 2 60 30 TO 80 SC Ac RT 59 -2 -2 0. TA 75 MINAYA ti RI 15 4- 3- 00 L 26 FE ve PT 78 20 20 0 CA R YL 80 12 12 RE GA IN 1 CH E PH AE HC AR L L MA G 50 CY MG #5 CA P AL 00 05 11 11 30 30 TO 79 SC Ac LO 59 -0 -2 0. TA 42 [facility]AYA ti PU 15 7- 3- 00 L 42 FE ve RI 54 20 20 0 CA R NO 40 12 12 RE GA L 5 CH 30 PH AE 0 AR L MG MA G CY TA BL #5 ET LE 68 07 11 6 15 30 TO 79 SC Ac VE 18 -1 -1 00 TA 97 MINAYA ti TI 00 9- 9- .0 L 87 FE ve RA 11 20 20 00 CA R CE 30 12 12 RE GA TA 2 CH M PH AE 50 AR L 0 MA G MG CY TA #5 BL ET LE 00 11 11 2 30 30 TO 80 SC Ac VO 37 -1 -1 0. TA 90 MINAYA ti TH 81 2- 2- 00 L 11 FE ve YR 80 20 20 0 CA R OX 00 12 12 RE GA IN 1 CH E PH AE 25 AR L MA G MC CY G TA #5 BL ET LI 00 07 11 3 90 90 TO 79 SC Ac SI 18 -0 -0 0. TA 88 MINAYA ti NO 50 6- 7- 00 L 56 FE ve SC 10 20 20 0 CA R IL 21 12 12 RE GA 0 CH 20 PH AE AR L MG MA G CY TA BL #5 ET NO 00 10 10 2 60 30 TO 80 SC Ac RT 59 -2 -2 0. TA 75 MINAYA ti RI 15 4- 4- 00 L 26 FE ve PT 78 20 20 0 CA R YL 80 12 12 RE GA IN 1 CH E PH AE HC AR L L MA G 50 CY MG #5 CA P AL 00 05 10 11 30 30 TO 79 SC Ac LO 59 -0 -1 0. TA 42 [facility]AYA ti PU 15 7- 8- 00 L 42 FE ve RI 54 20 20 0 CA R NO 40 12 12 RE GA L 5 CH 30 PH AE 0 AR L MG MA G CY TA BL #5 ET LE 68 07 10 6 15 30 TO 79 SC Ac VE 18 -1 -1 00 TA 97 MINAYA ti TI 00 9- 7- .0 L 87 FE ve RA 11 20 20 00 CA R CE 30 12 12 RE GA TA 2 CH M PH AE 50 AR L 0 MA G MG CY TA #5 BL ET SC 68 01 10 3 30 30 TO 78 SC Ac AV 18 -1 -1 0. TA 47 MINAYA ti 00 8- 3- 00 L 65 FE ve TA 48 20 20 0 CA R TI 80 12 12 RE GA N 2 CH SO PH AE DI AR L UM MA G CY 80 #5 MG TA B LE 00 07 10 2 30 30 TO 79 SC Ac VO 37 -0 -0 0. TA 89 MINAYA ti TH 81 9- 3- 00 L 98 FE ve YR 80 20 20 0 CA R OX 00 12 12 RE GA IN 1 CH E PH AE 25 AR L MA G MC CY G TA #5 BL ET NO 00 09 09 0 60 30 TO 80 SC Ac RT 59 -2 -2 0. TA 48 MINAYA ti RI 15 1- 1- 00 L 36 FE ve PT 78 20 20 0 CA R YL 80 12 12 RE GA IN 1 CH E PH AE HC AR L L MA G 50 CY MG #5 CA P LE 68 07 09 6 15 30 TO 79 SC Ac VE 18 -1 -2 00 TA 97 MINAYA ti TI 00 9- 0- .0 L 87 FE ve RA 11 20 20 00 CA R CE 30 12 12 RE GA TA 2 CH M PH AE 50 AR L 0 MA G MG CY TA #5 BL ET AL 00 05 09 11 30 30 TO 79 SC Ac LO 59 -0 -0 0. TA 42 MINAYA ti PU 15 7- 5- 00 L 42 FE ve RI 54 20 20 0 CA R NO 40 12 12 RE GA L 5 CH 30 PH AE 0 AR L MG MA G CY TA BL #5 ET SC 68 01 09 3 30 30 TO 78 SC Ac AV 18 -1 -0 0. TA 47 MINAYA ti 00 8- 5- 00 L 65 FE ve TA 48 20 20 0 CA R TI 80 12 12 RE GA N 2 CH SO PH AE DI AR L UM MA G CY 80 #5 MG TA B NO 00 03 08 5 60 30 TO 78 SC Ac RT 59 -1 -2 0. TA 95 MINAYA ti RI 15 2- 0- 00 L 37 FE ve PT 78 20 20 0 CA R YL 80 12 12 RE GA IN 1 CH E PH AE HC AR L L MA G 50 CY MG #5 CA P LE 00 07 08 2 30 30 TO 79 SC Ac VO 37 -0 -2 0. TA 89 MINAYA ti TH 81 9- 0- 00 L 98 FE ve YR 80 20 20 0 CA R OX 00 12 12 RE GA IN 1 CH E PH AE 25 AR L MA G MC CY G TA #5 BL ET LE 68 07 08 6 15 30 TO 79 SC Ac VE 18 -1 -2 00 TA 97 MINAYA ti TI 00 9- 0- .0 L 87 FE ve RA 11 20 20 00 CA R CE 30 12 12 RE GA TA 2 CH M PH AE 50 AR L 0 MA G MG CY TA #5 BL ET AL 00 05 07 11 30 30 TO 79 SC Ac LO 59 -0 -3 0. TA 42 MINAYA ti PU 15 7- 1- 00 L 42 FE ve RI 54 20 20 0 CA R NO 40 12 12 RE GA L 5 CH 30 PH AE 0 AR L MG MA G CY TA BL #5 ET SC 68 01 07 3 30 30 TO 78 SC Ac AV 18 -1 -3 0. TA 47 MINAYA ti 00 8- 1- 00 L 65 FE ve TA 48 20 20 0 CA R TI 80 12 12 RE GA N 2 CH SO PH AE DI AR L UM MA G CY 80 #5 MG TA B NO 00 03 07 5 60 30 TO 78 SC Ac RT 59 -1 -2 0. TA 95 MINAYA ti RI 15 2- 3- 00 L 37 FE ve PT 78 20 20 0 CA R YL 80 12 12 RE GA IN 1 CH E PH AE HC AR L L MA G 50 CY MG #5 CA P LE 68 07 07 6 15 30 TO 79 SC Ac VE 18 -1 -1 00 TA 97 MINAYA ti TI 00 9- 9- .0 L 87 FE ve RA 11 20 20 00 CA R CE 30 12 12 RE GA TA 2 CH M PH AE 50 AR L 0 MA G MG CY TA #5 BL ET LE 00 07 07 2 30 30 TO 79 SC Ac VO 37 -0 -0 0. TA 89 MINAYA ti TH 81 9- 9- 00 L 98 FE ve YR 80 20 20 0 CA R OX 00 12 12 RE GA IN 1 CH E PH AE 25 AR L MA G MC CY G TA #5 BL ET LI 00 07 07 3 90 90 TO 79 SC Ac SI 18 -0 -0 0. TA 88 MIANYA ti NO 50 6- 6- 00 L 56 FE ve SC 10 20 20 0 CA R IL 21 12 12 RE GA 0 CH 20 PH AE AR L MG MA G CY TA BL #5 ET NO 00 03 06 5 60 30 TO 78 SC Ac RT 59 -1 -2 0. TA 95 MINAYA ti RI 15 2- 1- 00 L 37 FE ve PT 78 20 20 0 CA R YL 80 12 12 RE GA IN 1 CH E PH AE HC AR L L MA G 50 CY MG #5 CA P LE 68 12 06 6 15 30 TO 78 SC Ac VE 18 -2 -2 00 TA 22 MINAYA ti TI 00 0- 1- .0 L 69 FE ve RA 11 20 20 00 CA R CE 30 11 12 RE GA TA 2 CH M PH AE 50 AR L 0 MA G MG CY TA #5 BL ET SC 68 01 06 3 30 30 TO 78 SC Ac AV 18 -1 -1 0. TA 47 MINAYA ti 00 8- 5- 00 L 65 FE ve TA 48 20 20 0 CA R TI 80 12 12 RE GA N 2 CH SO PH AE DI AR L UM MA G CY 80 #5 MG TA B LE 00 03 06 3 90 90 TO 79 SC Ac VO 52 -2 -1 0. TA 07 MINAYA ti TH 71 6- 5- 00 L 23 FE ve YR 34 20 20 0 CA R OX 21 12 12 RE GA IN 0 CH E PH AE 50 AR L MA G MC CY G TA #5 BL ET AL 00 05 06 11 30 30 TO 79 SC Ac LO 59 -0 -1 0. TA 42 MINAYA ti PU 15 7- 5- 00 L 42 FE ve RI 54 20 20 0 CA R NO 40 12 12 RE GA L 5 CH 30 PH AE 0 AR L MG MA G CY TA BL #5 ET LI 00 09 06 11 30 30 TO 77 SC Ac SI 18 -0 -0 0. TA 30 MINAYA ti NO 50 7- 6- 00 L 88 FE ve SC 10 20 20 0 CA R IL 11 11 12 RE GA 0 CH 10 PH AE AR L MG MA G CY TA BL #5 ET ME 68 01 05 6 30 30 TO 78 SC Ac LO 38 -1 -3 0. TA 47 MINAYA ti XI 20 8- 1- 00 L 66 FE ve CA 05 20 20 0 CA R M 10 12 12 RE GA 15 5 CH PH AE MG AR L MA G TA CY BL ET #5 LE 68 12 05 6 15 30 TO 78 SC Ac VE 18 -2 -2 00 TA 22 MINAYA ti TI 00 0- 3- .0 L 69 FE ve RA 11 20 20 00 CA R CE 30 11 12 RE GA TA 2 CH M PH AE 50 AR L 0 MA G MG CY TA #5 BL ET NO 00 03 05 5 60 30 TO 78 SC Ac RT 59 -1 -2 0. TA 95 MINAYA ti RI 15 2- 1- 00 L 37 FE ve PT 78 20 20 0 CA R YL 80 12 12 RE GA IN 1 CH E PH AE HC AR L L MA G 50 CY MG #5 CA P AL 00 05 05 11 30 30 TO 79 SC Ac LO 59 -0 -0 0. TA 42 MINAYA ti PU 15 7- 7- 00 L 42 FE ve RI 54 20 20 0 CA R NO 40 12 12 RE GA L 5 CH 30 PH AE 0 AR L MG MA G CY TA BL #5 ET SC 68 01 05 3 30 30 TO 78 SC Ac AV 18 -1 -0 0. TA 47 MIANYA ti 00 8- 7- 00 L 65 FE ve TA 48 20 20 0 CA R TI 80 12 12 RE GA N 2 CH SO PH AE DI AR L UM MA G CY 80 #5 MG TA B LE 68 12 04 6 15 30 TO 78 SC Ac VE 18 -2 -2 00 TA 22 MINAYA ti TI 00 0- 1- .0 L 69 FE ve RA 11 20 20 00 CA R CE 30 11 12 RE GA TA 2 CH M PH AE 50 AR L 0 MA G MG CY TA #5 BL ET NO 00 03 04 5 60 30 TO 78 SC Ac RT 59 -1 -1 0. TA 95 MINAYA ti RI 15 2- 0- 00 L 37 FE ve PT 78 20 20 0 CA R YL 80 12 12 RE GA IN 1 CH E PH AE HC AR L L MA G 50 CY MG #5 CA P ME 68 01 04 6 30 30 TO 78 SC Ac LO 38 -1 -0 0. TA 47 MINAYA ti XI 20 8- 9- 00 L 66 FE ve CA 05 20 20 0 CA R M 10 12 12 RE GA 15 5 CH PH AE MG AR L MA G TA CY BL ET #5 LI 00 09 04 11 30 0 TO 77 SC Ac SI 18 -0 -0 0. TA 30 MINAYA ti NO 50 7- 3- 00 L 88 FE ve SC 10 20 20 0 CA R IL 11 11 12 RE GA 0 CH 10 PH AE AR L MG MA G CY TA BL #5 ET AL 00 08 04 6 30 0 TO 77 KA Ac LO 59 -2 -0 0. TA 22 LF ti PU 15 6- 3- 00 L 63 ve RI 54 20 20 0 CA NO 40 11 12 RE GA L 5 NA 30 PH C 0 AR MG MA CY TA BL #5 ET LE 00 03 03 3 90 0 TO 79 SC Ac VO 52 -2 -2 0. TA 07 MINAYA ti TH 71 6- 6- 00 L 23 FE ve YR 34 20 20 0 CA R OX 21 12 12 RE GA IN 0 CH E PH AE 50 AR L MA G MC CY G TA #5 BL ET LE 68 12 03 6 15 0 TO 78 SC Ac VE 18 -2 -2 00 TA 22 MINAYA ti TI 00 0- 2- .0 L 69 FE ve RA 11 20 20 00 CA R CE 30 11 12 RE GA TA 2 CH M PH AE 50 AR L 0 MA G MG CY TA #5 BL ET SC 68 01 03 3 30 0 TO 78 SC Ac AV 18 -1 -1 0. TA 47 MINAYA ti 00 8- 7- 00 L 65 FE ve TA 48 20 20 0 CA R TI 80 12 12 RE GA N 2 CH SO PH AE DI AR L UM MA G CY 80 #5 MG TA B NO 00 03 03 5 60 0 TO 78 SC Ac RT 59 -1 -1 0. TA 95 MINAYA ti RI 15 2- 2- 00 L 37 FE ve PT 78 20 20 0 CA R YL 80 12 12 RE GA IN 1 CH E PH AE HC AR L L MA G 50 CY MG #5 CA P AL 00 08 03 6 30 0 TO 77 KA Ac LO 59 -2 -0 0. TA 22 LF ti PU 15 6- 1- 00 L 63 ve RI 54 20 20 0 CA NO 40 11 12 RE GA L 5 NA 30 PH C 0 AR MG MA CY TA BL #5 ET LI 00 09 03 11 30 0 TO 77 SC Ac SI 18 -0 -0 0. TA 30 MINAYA ti NO 50 7- 1- 00 L 88 FE ve SC 10 20 20 0 CA R IL 11 11 12 RE GA 0 CH 10 PH AE AR L MG MA G CY TA BL #5 ET ME 68 01 02 6 30 0 TO 78 SC Ac LO 38 -1 -2 0. TA 47 MINAYA ti XI 20 8- 4- 00 L 66 FE ve CA 05 20 20 0 CA R M 10 12 12 RE GA 15 5 CH PH AE MG AR L MA G TA CY BL ET #5 LE 68 12 02 6 15 0 TO 78 SC Ac VE 18 -2 -2 00 TA 22 MINAYA ti TI 00 0- 1- .0 L 69 FE ve RA 11 20 20 00 CA R CE 30 11 12 RE GA TA 2 CH M PH AE 50 AR L 0 MA G MG CY TA #5 BL ET NO 00 01 02 1 60 0 TO 78 SC Ac RT 59 -0 -0 0. TA 37 MINAYA ti RI 15 9- 9- 00 L 63 FE ve PT 78 20 20 0 CA R YL 80 12 12 RE GA IN 1 CH E PH AE HC AR L L MA G 50 CY MG #5 CA P LI 00 09 02 11 30 0 TO 77 SC Ac SI 18 -0 -0 0. TA 30 MINAYA ti NO 50 7- 1- 00 L 88 FE ve SC 10 20 20 0 CA R IL 11 11 12 RE GA 0 CH 10 PH AE AR L MG MA G CY TA BL #5 ET AL 00 08 02 6 30 0 TO 77 KA Ac LO 59 -2 -0 0. TA 22 LF ti PU 15 6- 1- 00 L 63 ve RI 54 20 20 0 CA NO 40 11 12 RE GA L 5 NA 30 PH C 0 AR MG MA CY TA BL #5 ET TR 65 01 01 3 90 0 TO 78 SC Ac AM 16 -2 -2 0. TA 54 MINAYA ti AD 20 5- 5- 00 L 59 FE ve OL 62 20 20 0 CA R 71 12 12 RE GA HC 1 CH L PH AE 50 AR L MA G MG CY TA #5 BL ET LE 68 12 01 6 15 0 TO 78 SC Ac VE 18 -2 -2 00 TA 22 MINAYA ti TI 00 0- 0- .0 L 69 FE ve RA 11 20 20 00 CA R CE 30 11 12 RE GA TA 2 CH M PH AE 50 AR L 0 MA G MG CY TA #5 BL ET SC 68 01 01 3 30 0 TO 78 SC Ac AV 18 -1 -1 0. TA 47 MINAYA ti 00 8- 8- 00 L 65 FE ve TA 48 20 20 0 CA R TI 80 12 12 RE GA N 2 CH SO PH AE DI AR L UM MA G CY 80 #5 MG TA B ME 68 01 01 6 30 0 TO 78 SC Ac LO 38 -1 -1 0. TA 47 MINAYA ti XI 20 8- 8- 00 L 66 FE ve CA 05 20 20 0 CA R M 10 12 12 RE GA 15 5 CH PH AE MG AR L MA G TA CY BL ET #5 SI 68 11 01 4 30 0 TO 77 SC Ac MV 38 -0 -1 0. TA 81 MINAYA ti 20 2- 7- 00 L 52 FE ve TA 06 20 20 0 CA R TI 90 11 12 RE GA N 5 CH 80 PH AE AR L MG MA G CY TA BL #5 ET NO 00 01 01 1 60 0 TO 78 SC Ac RT 59 -0 -0 0. TA 37 MINAYA ti RI 15 9- 9- 00 L 63 FE ve PT 78 20 20 0 CA R YL 80 12 12 RE GA IN 1 CH E PH AE HC AR L L MA G 50 CY MG #5 CA P LI 00 09 12 11 30 0 TO 77 SC Ac SI 18 -0 -3 0. TA 30 MINAYA ti NO 50 7- 0- 00 L 88 FE ve SC 10 20 20 0 CA R IL 11 11 11 RE GA 0 CH 10 PH AE AR L MG MA G CY TA BL #5 ET AL 00 08 12 6 30 0 TO 77 KA Ac LO 59 -2 -3 0. TA 22 LF ti PU 15 6- 0- 00 L 63 ve RI 54 20 20 0 CA NO 40 11 11 RE GA L 5 NA 30 PH C 0 AR MG MA CY TA BL #5 ET LE 68 12 12 6 15 30 78 SC Ac VE 18 -2 -2 0. 22 MINAYA ti TI 00 0- 0- 00 69 FE ve RA 11 20 20 0 R CE 30 11 11 GA TA 2 CH M AE 50 L 0 G MG TA BL ET SI 68 11 12 4 30 30 77 SC Ac MV 38 -0 -0 .0 81 MINAYA ti 20 2- 7- 00 52 FE ve TA 06 20 20 R TI 90 11 11 GA N 5 CH 80 AE L MG G TA BL ET NO 00 11 12 1 60 30 77 SC Ac RT 59 -0 -0 .0 81 MINAYA ti RI 15 2 7 53 FE ve PT 78 20 20 R YL 80 11 11 GA IN 1 CH E AE HC L L G 50 MG CA P AL 00 08 11 6 30 30 77 KA Ac LO 59 -2 -2 .0 22 LF ti PU 15 6 63 ve RI 54 20 20 NO 40 11 11 GA L 5 NA 30 C 0 MG TA BL ET LI 00 09 11 11 30 30 77 SC Ac SI 18 -0 -2 .0 30 MINAYA ti NO 50 7 3 88 FE ve SC 10 20 20 R IL 11 11 11 GA 0 CH 10 AE L MG G TA BL ET LE 68 11 11 6 15 30 77 SC Ac VE 18 -1 -1 0. 96 MINAYA ti TI 00 58 FE ve RA 11 20 20 0 R CE 30 11 11 GA TA 2 CH M AE 50 L 0 G MG TA BL ET NO 00 11 11 1 60 30 77 SC Ac RT 59 -0 -0 .0 81 MINAYA ti RI 15 53 FE ve PT 78 20 20 R YL 80 11 11 GA IN 1 CH E AE HC L L G 50 MG CA P SI 68 11 11 4 30 30 77 SC Ac MV 38 -0 -0 .0 81 MINAYA ti 20 2 2 00 52 FE ve TA 06 20 20 R TI 90 11 11 GA N 5 CH 80 AE L MG G TA BL ET LI 00 09 10 11 30 30 77 SC Ac SI 18 -0 -2 .0 30 MINAYA ti NO 50 88 FE ve SC 10 20 20 R IL 11 11 11 GA 0 CH 10 AE L MG G TA BL ET LE 68 09 10 1 15 30 77 SC Ac VE 18 -1 -1 0. 40 MINAYA ti TI 00 99 FE ve RA 11 20 20 0 R CE 30 11 11 GA TA 2 CH M AE 50 L 0 G MG TA BL ET AC 64 10 10 3 90 90 77 SC Ac TO 76 -1 -1 .0 66 MINAYA ti S 40 02 FE ve 45 45 20 20 R 12 11 11 GA MG 4 CH AE TA L BL G ET TR 65 10 10 5 60 30 77 SC Ac AM 16 -1 -1 .0 66 MINAYA ti AD 20 13 FE ve OL 62 20 20 R 71 11 11 GA HC 1 CH L AE 50 L G MG TA BL ET AL 00 08 10 6 30 30 77 KA Ac LO 59 -2 -1 .0 22 LF ti PU 15 6- 3- 00 63 ve RI 54 20 20 NO 40 11 11 GA L 5 NA 30 C 0 MG TA BL ET NO 00 09 10 1 60 30 77 SC Ac RT 59 -0 -0 .0 27 MINAYA ti RI 15 2- 7- 00 87 FE ve PT 78 20 20 R YL 80 11 11 GA IN 1 CH E AE HC L L G 50 MG CA P SI 68 04 10 4 30 30 76 KA Ac MV 38 -0 -0 .0 08 LF ti 20 8- 1 00 95 ve TA 06 20 20 TI 90 11 11 GA N 5 NA 80 C MG TA BL ET LE 68 09 09 1 15 30 77 SC Ac VE 18 -1 -1 0. 40 MINAYA ti TI 00 99 FE ve RA 11 20 20 0 R CE 30 11 11 GA TA 2 CH M AE 50 L 0 G MG TA BL ET LI 00 09 09 11 30 30 77 SC Ac SI 18 -0 -0 .0 30 MINAYA ti NO 50 88 FE ve SC 10 20 20 R IL 11 11 11 GA 0 CH 10 AE L MG G TA BL ET NO 00 09 09 1 60 30 77 SC Ac RT 59 -0 -0 .0 27 MINAYA ti RI 15 2- 2- 00 87 FE ve PT 78 20 20 R YL 80 11 11 GA IN 1 CH E AE HC L L G 50 MG CA P AL 00 08 08 6 30 30 77 KA Ac LO 59 -2 -2 .0 22 LF ti PU 15 6- 6- 00 63 ve RI 54 20 20 NO 40 11 11 GA L 5 NA 30 C 0 MG TA BL ET LE 68 07 08 1 15 30 76 KA Ac VE 18 -1 -1 0. 88 LF ti TI 00 5 6 00 68 ve RA 11 20 20 0 CE 30 11 11 GA TA 2 NA M C 50 0 MG TA BL ET NO 00 01 08 3 60 30 75 KA Ac RT 59 -2 -0 .0 42 LF ti RI 15 8- 2- 00 31 ve PT 78 20 20 YL 80 11 11 GA IN 1 NA E C HC L 50 MG CA P SI 68 04 08 4 30 30 76 KA Ac MV 38 -0 -0 .0 08 LF ti 20 8- 2 00 95 ve TA 06 20 20 TI 90 11 11 GA N 5 NA 80 C MG TA BL ET LI 00 04 07 3 30 30 76 SC Ac SI 18 -1 -2 .0 13 MINAYA ti NO 50 4- 8- 00 54 CK ve SC 10 20 20 IL 11 11 11 BR 0 IA 10 N MG TA BL ET LE 68 07 07 1 15 30 76 KA Ac VE 18 -1 -1 0. 88 LF ti TI 00 5- 5- 00 68 ve RA 11 20 20 0 CE 30 11 11 GA TA 2 NA M C 50 0 MG TA BL ET AL 00 03 07 3 30 30 75 KA Ac LO 59 -2 -1 .0 94 LF ti PU 15 3- 3- 00 44 ve RI 54 20 20 NO 40 11 11 GA L 5 NA 30 C 0 MG TA BL ET NO 00 01 06 3 60 30 75 KA Ac RT 59 -2 -2 .0 42 LF ti RI 15 8- 9- 00 31 ve PT 78 20 20 YL 80 11 11 GA IN 1 NA E C HC L 50 MG CA P AC 00 06 06 0 60 30 76 KA Ac ET 40 -2 -2 .0 75 LF ti AM 60 8- 8- 00 38 ve IN 48 20 20 OP 41 11 11 GA HE 0 NA N- C CO D #3 TA BL ET SI 68 04 06 4 30 30 76 KA Ac MV 38 -0 -2 .0 08 LF ti 20 8- 0- 00 95 ve TA 06 20 20 TI 90 11 11 GA N 5 NA 80 C MG TA BL ET HY 00 06 06 1 30 [address] 17 -2 -2 .0 68 LF ti OC 22 0- 0- 00 50 ve HL 08 20 20 OR 38 11 11 GA OT 0 NA HI C AZ ID E 25 MG TA B LI 00 04 06 3 30 30 76 SC Ac SI 18 -1 -2 .0 13 MINAYA ti NO 50 4- 0- 00 54 CK ve SC 10 20 20 IL 11 11 11 BR 0 IA 10 N MG TA BL ET LE 68 05 06 1 15 30 76 KA Ac VE 18 -1 -1 0. 41 LF ti TI 00 7- 6- 00 34 ve RA 11 20 20 0 CE 30 11 11 GA TA 2 NA M C 50 0 MG TA BL ET NO 00 01 05 3 60 30 75 KA Ac RT 59 -2 -3 .0 42 LF ti RI 15 8- 1- 00 31 ve PT 78 20 20 YL 80 11 11 GA IN 1 NA E C HC L 50 MG CA P AL 00 03 05 3 30 30 75 KA Ac LO 59 -2 -3 .0 94 LF ti PU 15 3 44 ve RI 54 20 20 NO 40 11 11 GA L 5 NA 30 C 0 MG TA BL ET SI 68 04 05 4 30 30 76 KA Ac MV 38 -0 -1 .0 08 LF ti 20 95 ve TA 06 20 20 TI 90 11 11 GA N 5 NA 80 C MG TA BL ET LE 68 05 05 1 15 30 76 KA Ac VE 18 -1 -1 0. 41 LF ti TI 00 34 ve RA 11 20 20 0 CE 30 11 11 GA TA 2 NA M C 50 0 MG TA BL ET LI 00 04 05 3 30 30 76 SC Ac SI 18 -1 -1 .0 13 MINAYA ti NO 50 54 CK ve SC 10 20 20 IL 11 11 11 BR 0 IA 10 N MG TA BL ET HY 00 12 05 1 30 [address] 17 -1 -0 .0 03 LF ti OC 22 95 ve HL 08 20 20 OR 38 10 11 GA OT 0 NA HI C AZ ID E 25 MG TA B AC 00 01 05 2 60 30 75 KA Ac ET 40 -3 -0 .0 43 LF ti AM 60 70 ve IN 48 20 20 OP 41 11 11 GA HE 0 NA N- C CO D #3 TA BL ET NO 00 03 04 1 60 30 75 KA Ac RT 59 -2 -2 .0 93 LF ti RI 15 10 ve PT 78 20 20 YL 80 11 11 GA IN 1 NA E C HC L 50 MG CA P AL 00 03 04 3 30 30 75 KA Ac LO 59 -2 -1 .0 94 LF ti PU 15 3 44 ve RI 54 20 20 NO 40 11 11 GA L 5 NA 30 C 0 MG TA BL ET LE 68 03 04 1 15 30 75 KA Ac VE 18 -2 -1 0. 92 LF ti TI 00 43 ve RA 11 20 20 0 CE 30 11 11 GA TA 2 NA M C 50 0 MG TA BL ET LI 00 04 04 3 30 30 76 SC Ac SI 18 -1 -1 .0 13 MINAYA ti NO 50 4- 54 CK ve SC 10 20 20 IL 11 11 11 BR 0 IA 10 N MG TA BL ET SI 68 04 04 4 30 30 76 KA Ac MV 38 -0 -0 .0 08 LF ti 20 95 ve TA 06 20 20 TI 90 11 11 GA N 5 NA 80 C MG TA BL ET AL 00 03 03 3 30 30 75 KA Ac LO 59 -2 -2 .0 94 LF ti PU 15 3 44 ve RI 54 20 20 NO 40 11 11 GA L 5 NA 30 C 0 MG TA BL ET NO 00 03 03 1 60 30 75 KA Ac RT 59 -2 -2 .0 93 LF ti RI 15 2 00 10 ve PT 78 20 20 YL 80 11 11 GA IN 1 NA E C HC L 50 MG CA P LE 68 03 03 1 15 30 75 KA Ac VE 18 -2 -2 0. 92 LF ti TI 00 43 ve RA 11 20 20 0 CE 30 11 11 GA TA 2 NA M C 50 0 MG TA BL ET LI 00 01 03 2 30 30 75 KA Ac SI 18 -1 -1 .0 27 LF ti NO 50 05 ve SC 10 20 20 IL 11 11 11 GA 0 NA 10 C MG TA BL ET NO 00 11 03 1 30 30 74 KA Ac RT 59 -0 -0 .0 73 LF ti RI 15 93 ve PT 78 20 20 YL 80 10 11 GA IN 1 NA E C HC L 50 MG CA P AC 00 01 02 2 60 30 75 KA Ac ET 40 -3 -2 .0 43 LF ti AM 60 70 ve IN 48 20 20 OP 41 11 11 GA HE 0 NA N- C CO D #3 TA BL ET AL 53 12 02 2 30 30 74 KA Ac LO 48 -0 -1 .0 95 LF ti PU 90 3 06 ve RI 15 20 20 NO 71 10 11 GA L 0 NA 30 C 0 MG TA BL ET LE 68 01 02 1 15 30 75 KA Ac VE 18 -1 -1 0. 33 LF ti TI 00 36 ve RA 11 20 20 0 CE 30 11 11 GA TA 2 NA M C 50 0 MG TA BL ET LI 00 01 02 2 30 30 75 KA Ac SI 18 -1 -1 .0 27 LF ti NO 50 1- 4- 00 05 ve SC 10 20 20 IL 11 11 11 GA 0 NA 10 C MG TA BL ET AC 00 01 01 2 60 30 75 KA Ac ET 40 -3 -3 .0 43 LF ti AM 60 1- 00 70 ve IN 48 20 20 OP 41 11 11 GA HE 0 NA N- C CO D #3 TA BL ET NO 00 01 01 3 60 30 75 KA Ac RT 59 -2 -2 .0 42 LF ti RI 15 8 8- 00 31 ve PT 78 20 20 YL 80 11 11 GA IN 1 NA E C HC L 50 MG CA P HY 00 12 01 1 30 [address] 17 -1 -1 .0 03 LF ti OC 22 4 8 00 95 ve HL 08 20 20 OR 38 10 11 GA OT 0 NA HI C AZ ID E 25 MG TA B LE 68 01 01 1 15 30 75 KA Ac VE 18 -1 -1 0. 33 LF ti TI 00 8 36 ve RA 11 20 20 0 CE 30 11 11 GA TA 2 NA M C 50 0 MG TA BL ET SI 68 01 01 1 30 30 75 KA Ac MV 38 -1 -1 .0 33 LF ti 20 8 37 ve TA 06 20 20 TI 90 11 11 GA N 5 NA 80 C MG TA BL ET NO 00 11 01 1 30 30 74 KA Ac RT 59 -0 -1 .0 73 LF ti RI 15 9- 3- 00 93 ve PT 78 20 20 YL 80 10 11 GA IN 1 NA E C HC L 50 MG CA P LI 00 01 01 2 30 30 75 KA Ac SI 18 -1 -1 .0 27 LF ti NO 50 1- 1- 05 ve SC 10 20 20 IL 11 11 11 GA 0 NA 10 C MG TA BL ET AL 00 12 01 2 30 30 74 KA Ac LO 59 -0 -1 .0 95 LF ti PU 15 3- 0- 00 06 ve RI 54 20 20 NO 40 10 11 GA L 5 NA 30 C 0 MG [...] 78 20 20 YL 80 10 10 GA IN 1 NA E C HC L 50 MG CA P LE 68 11 12 1 15 30 74 KA Ac VE 18 -1 -1 0. 77 LF ti TI 00 2- 3- 00 12 ve RA 11 20 20 0 CE 30 10 10 GA TA 2 NA M C 50 0 MG TA BL ET HY 00 10 12 1 30 [address] 17 -1 -0 .0 50 LF ti OC 22 3- 9- 00 20 ve HL 08 20 20 OR 38 10 10 GA OT 0 NA HI C AZ ID E 25 MG TA B LI 00 10 12 1 30 30 74 KA Ac SI 18 -1 -0 .0 50 LF ti NO 50 3 9 21 ve SC 10 20 20 IL 21 10 10 GA 0 NA 20 C MG TA BL ET AL 00 12 12 2 30 30 74 KA Ac LO 59 -0 -0 .0 95 LF ti PU 15 3- 3- 06 ve RI 54 20 20 NO 40 10 10 GA L 5 NA 30 C 0 MG TA BL ET AM 00 11 11 0 20 10 74 KA Ac OX 78 -2 -2 .0 89 LF ti IC 15 9- 9- 00 53 ve IL 06 20 20 LI 10 10 10 GA N 1 NA 87 C 5 MG TA BL ET IN 00 08 11 2 90 30 73 KA Ac DO 09 -0 -2 .0 92 LF ti ME 34 4- 2- 00 73 ve TH 03 20 20 AC 00 10 10 GA IN 5 NA C 50 MG CA PS UL E AC 00 11 11 0 60 30 74 KA Ac ET 40 -1 -1 .0 81 LF ti AM 60 7- 7- 00 33 ve IN 48 20 20 OP 41 10 10 GA HE 0 NA N- C CO D #3 TA BL ET NO 00 11 11 1 30 30 74 KA Ac RT 59 -1 -1 .0 79 LF ti RI 15 6- 6- 00 63 ve PT 78 20 20 YL 80 10 10 GA IN 1 NA E C HC L 50 MG CA P LE 68 11 11 1 15 30 74 KA Ac VE 18 -1 -1 0. 77 LF ti TI 00 2- 2- 00 12 ve RA 11 20 20 0 CE 30 10 10 GA TA 2 NA M C 50 0 MG TA BL ET SI 68 10 11 1 30 30 74 KA Ac MV 38 -0 -0 .0 42 LF ti 20 5- 1- 00 30 ve TA 06 20 20 TI 90 10 10 GA N 5 NA 80 C MG TA BL ET HY 00 10 11 1 30 [address] 17 -1 -0 .0 50 LF ti OC 22 3- 1- 00 20 ve HL 08 20 20 OR 38 10 10 GA OT 0 NA HI C AZ ID E 25 MG TA B CA 68 09 10 2 60 30 74 KA Ac RV 38 -0 -2 .0 18 LF ti ED 20 7- 5- 00 41 ve IL 09 20 20 OL 30 10 10 GA 5 NA 6. C 25 MG TA BL ET NO 00 02 10 3 30 30 72 KA Ac RT 59 -0 -1 .0 41 LF ti RI 15 3 8 76 ve PT 78 20 20 YL 80 10 10 GA IN 1 NA E C HC L 50 MG CA P LE 68 08 10 3 12 30 74 KA Ac VE 18 -2 -1 0. 06 LF ti TI 00 0- 8- 08 ve RA 11 20 20 0 CE 30 10 10 GA TA 2 NA M C 50 0 MG TA BL ET CI 65 05 10 4 15 30 74 KA Ac TA 86 -2 -1 .0 07 LF ti LO 20 6- 3- 00 05 ve SC 00 20 20 AM 70 10 10 GA 5 NA HB C R 40 MG TA BL ET LI 00 05 10 0 28 28 74 KA Ac SI 18 -1 -1 .0 47 LF ti NO 50 0- 1- 00 15 ve SC 10 20 20 IL 21 10 10 GA 0 NA 20 C MG TA BL ET SI 68 10 10 1 30 30 74 KA Ac MV 38 -0 -0 .0 42 LF ti 20 5- 5- 00 30 ve TA 06 20 20 TI 90 10 10 GA N 5 NA 80 C MG TA BL ET HY 00 05 10 0 28 [address] 17 -1 -0 .0 41 LF ti OC 22 0- 4- 00 63 ve HL 08 20 20 OR 38 10 10 GA OT 0 NA HI C AZ ID E 25 MG TA B IN 00 08 10 2 90 30 73 KA Ac DO 09 -0 -0 .0 92 LF ti ME 34 4- 1- 00 73 ve TH 03 20 20 AC 00 10 10 GA IN 5 NA C 50 MG CA PS UL E AC 00 09 10 0 60 30 74 KA Ac ET 40 -1 -0 .0 27 LF ti AM 60 5- 1- 00 03 ve IN 48 20 20 OP 41 10 10 GA HE 0 NA N- C CO D #3 TA BL ET LE 68 08 09 3 12 30 74 KA Ac VE 18 -2 -2 0. 06 LF ti TI 00 0- 1- 00 08 ve RA 11 20 20 0 CE 31 10 10 GA TA 6 NA M C 50 0 MG TA BL ET NO 00 02 09 3 30 30 72 KA Ac RT 59 -0 -1 .0 41 LF ti RI 15 3- 0- 00 76 ve PT 78 20 20 YL 80 10 10 GA IN 1 NA E C HC L 50 MG CA P CA 68 09 09 2 60 30 74 KA Ac RV 38 -0 -0 .0 18 LF ti ED 20 7- 7- 00 41 ve IL 09 20 20 OL 30 10 10 GA 5 NA 6. C 25 MG TA BL ET SI 68 12 09 0 30 30 74 KA Ac MV 38 -3 -0 .0 15 LF ti 20 1- 2- 00 27 ve TA 06 20 20 TI 90 09 10 GA N 5 NA 80 C MG TA BL ET CI 65 08 08 4 15 30 74 KA Ac TA 16 -2 -2 .0 07 LF ti LO 20 3- 3- 00 05 ve SC 05 20 20 AM 45 10 10 GA 0 NA HB C R 40 MG TA BL ET AC 00 08 08 0 60 30 74 KA Ac ET 40 -2 -2 .0 06 LF ti AM 60 0- 0- 00 07 ve IN 48 20 20 OP 41 10 10 GA HE 0 NA N- C CO D #3 TA BL ET LE 68 08 08 3 12 30 74 KA Ac VE 18 -2 -2 0. 06 LF ti TI 00 0- 0- 00 08 ve RA 11 20 20 0 CE 31 10 10 GA TA 6 NA M C 50 0 MG TA BL ET IN 00 08 08 2 90 30 73 KA Ac DO 09 -0 -0 .0 92 LF ti ME 34 4- 4- 00 73 ve TH 03 20 20 AC 00 10 10 GA IN 1 NA C 50 MG CA [...] DOS Code Location Performer Comment DIRECT G0299 [facility] RN [facility]HO CARE CARE SPICE SET EA 15 MIN DIRECT G0299 [facility] RN 7 [facility]/HO CARE CARE SPICE SET EA 15 MIN DIRECT G0299 [facility] RN 7 [facility] HOME HE[facility]/HO CARE CARE SPICE SET EA 15 MIN NONEMERGE A0130 [facility] 7 INC TRANSPORT TRANSPORT REGION 9 ATION CO ATION: L MARYCRUZ Vanegas VAN DIRECT G0299 [facility] SNS RN 7 BARBARA [facility] HOME HOME HOME HEALTH/HO CARE CARE SPICE SET EA 15 MIN THER [id number] [facility] PROPH/DX 7 BARBARA JIMENEZ NJX EA SEQL IV HEALTHCAR HEALTHCAR PUSH E АНДРЕЙ CHIANG SBST/DRUG FAC OBSERVATI 39844 [facility] ON CARE 7 BARBARA ALFARO DISCHARGE PHYSICIAN MANAGEMEN S T INJECTION J0131 ST 7 BARBARA JIMENEZ ACETAMINO PHEN 10 HEALTHCAR HEALTHCAR MG E EDGE E EDGE INJECTION J1642 [facility] HEPARIN 7 BARBARA JIMENEZ SODIUM PER 10 HEALTHCAR HEALTHCAR UNITS E EDGE E EDGE INJECTION J1650 [facility] 7 BARBARA BARBARA ENOXAPARI N SODIUM HEALTHCAR HEALTHCAR 10 MG E EDGE E EDGE POTASSIUM [id number] [facility] SERUM 7 BARBARA BARBARA PLASMA/WH OLE BLOOD HEALTHCAR HEALTHCAR E EDGE E EDGE THERAPEUT 09313 [facility] IC 7 BARBARA BARBARA PROPHYLAC TIC/DX HEALTHCAR HEALTHCAR INJECTION E EDGE E EDGE SUBQ/IM NONEMERGE A0130 LKLP CAC [facility] NCY 7 INC TRANSPORT TRANSPORT REGION 9 ATION CO ATION: L [facility] [id number] [facility] DISCHARGE 7 BARBARA JR NASH MANAGEMEN PHYSICIAN T > 30 S MIN THERAPEUT 93701 [facility] IC 7 BARBARA BARBARA PROPHYLAC TIC/DX HEALTHCAR HEALTHCAR INJECTION E EDGE E EDGE SUBQ/[place] [address] [facility] MAGNESIUM 7 BARBARA BARBARA HEALTHCAR HEALTHCAR E EDGE E EDGE INJECTION J1650 [facility] 7 BARBARARED JIMENEZ ENOXAPARI N SODIUM HEALTHCAR HEALTHCAR 10 MG E EDGE E EDGE INJECTION J0131 [facility] 7 BARBARA BARBARA ACETAMINO PHEN 10 HEALTHCAR HEALTHCAR MG E EDGE E EDGE INJECTION J2250 [facility] 7 BARBARA BARBARA MIDAZOLAM HCL PER HEALTHCAR HEALTHCAR 1 MG E EDGE E EDGE MOD SED 94181 [facility] SAME 7 BARBARA PHYS/QHP INITIAL PHYSICIAN 15 MINS S 5/> YRS MOD SED 15747 [facility] SAME 7 BARBARA PHYS/QHP EACH ADDL PHYSICIAN 15 MINS S PREALBUMI [id number] [facility] N 7 BARBARA BARBARA HEALTHCAR HEALTHCAR E EDGE E EDGE EGD 89768 [facility] PERCUTANE 7 BARBARA OUS PLACEMENT PHYSICIAN S GASTROSTO MY TUBE THER 31431 [facility] PROPH/DX 7 BARBARA BARBARA NJX EA SEQL IV HEALTHCAR HEALTHCAR PUSH E EDGE E EDGE SBST/DRUG FAC INJECTION J1200 [place] [address] BARBARAJOSAFAT JIMENEZ DIPHENHYD RAMINE HEALTHCAR HEALTHCAR HCL UP TO E EDGE E EDGE 50 MG INJECTION J3010 [facility] FENTANYL 7 BARBARAJOSAFAT JIMENEZ CITRATE 0.1 MG HEALTHCAR HEALTHCAR E EDGE E EDGE MODERATE G0500 [facility] SEDAT 7 BARBARARED JIMENEZ SRVC PROV SAME HEALTHCAR HEALTHCAR PHYS [place] [address] [facility] INFUSION 7 BARBARA BARBARA HYDRATION EACH HEALTHCAR HEALTHCAR [place] [address] [facility] INFUSION 7 BARBARA BARBARA HYDRATION EACH HEALTHCAR HEALTHCAR ADDITIONA E EDGE E EDGE L [facility] G0378 [facility] OBSERVATI 7 BARBARA JIMENEZ ON SERVICE HEALTHCAR HEALTHCAR PER HOUR E EDGE E EDGE THER 35064 [facility] PROPH/DX 7 BARBARA JIMENEZ NJX EA SEQL IV HEALTHCAR HEALTHCAR PUSH E EDGE E EDGE SBST/DRUG FAC SBSQ 26873 [facility] 7 BARBARA JR CARE/DAY 25 PHYSICIAN MINUTES S INJECTION J0131 [place] [address] BARBARA JIMENEZ ACETAMINO PHEN 10 HEALTHCAR HEALTHCAR MG E EDGE E EDGE INJECTION J1650 [place] [address] BARBARA JIMENEZ ENOXAPARI N SODIUM HEALTHCAR HEALTHCAR 10 MG E EDGE E EDGE INITIAL [address] [facility] 7 BARBARA CONSULT NEW/ESTAB PHYSICIAN PT 80 S MIN THERAPEUT [address]40 [facility] IC 7 BARBARA BARBARA PROPHYLAC TIC/DX HEALTHCAR HEALTHCAR INJECTION E EDGE E EDGE SUBQ/IM THERAPEUT 88560 [facility] IC 7 BARBARA BARBARA PROPHYLAC TIC/DX HEALTHCAR HEALTHCAR INJECTION E EDGE E EDGE SUBQ/IM THER 71127 [facility] PROPH/DX 7 BARBARA BARBARA NJX IV PUSH HEALTHCAR HEALTHCAR SINGLE/1S E EDGE E EDGE T SBST/DRUG INJECTION J0131 ST 7 BARBARA BARBARA ACETAMINO PHEN 10 HEALTHCAR HEALTHCAR MG E EDGE E EDGE INJECTION J2270 [facility] MORPHINE 7 BARBARA BARBARA SULFATE UP TO 10 HEALTHCAR HEALTHCAR MG E EDGE E EDGE GROUND A0425 SHAI SHAI MILEAGE 7 CO CO PER AMBULANCE AMBULANCE STATUTE TAXIN TAXIN MILE AMBULANCE A0429 SHAI SHAI SERVICE 7 CO CO BLS AMBULANCE AMBULANCE EMERGENCY TAXIN TAXIN TRANSPORT INITIAL [address]/DAY [place] [address] [facility] INFUSION 7 BARBARA BARBARA HYDRATION EACH HEALTHCAR [...] HT DTACH ARMRST CMPL ASSMBL EA CHIROPRAC [address]228 [facility] TIC 7 CHIROPRAC CHIROPRAC MANIPULAT TIC TIC [facility] CENTER SPINAL 1-2 REGIONS NONEMERGE A0130 LK[facility] CAC [facility] 7 INC TRANSPORT TRANSPORT REGION 9 ATION CO ATION: Alexandru WILLAMS PHYSICAL 99367 [facility] THERAP[facility] 7 [facility] [...] [facility]ALTH[facility] UNITS E EDGE E EDGE THER [address] PROPH/DX 7 BARBARA BARBARA NJX IV PUSH HEALTHCAR HEALTHCAR SINGLE/1S E EDGE E EDGE T SBST/DRUG ECG [address] ROUTINE 7 BARBARA BARBARA ECG W/LEAST HEALTHCAR HEALTHCAR 12 LDS E EDGE E EDGE TRCG ONLY W/O I&R BASIC [address] METABOLIC 7 BARBARA BARBARA PANEL CALCIUM HEALTHCAR HEALTHCAR TOTAL E EDGE E EDGE COLLECTIO [address] N VENOUS 7 BARBARA BARBARA BLOOD VENIPUNCT HEALTHCAR HEALTHCAR URE E EDGE E EDGE ECG [address] ST JAJA ROUTINE 7 BARBARA ECG MED CTR W/LEAST 12 LDS I&R ONLY RADIOLOGI 43177 RADIOLOGY DOERGER C EXAM 7 CHEST 2 ASSOCIATE VIEWS S OF [facility] [place] [address] TROPONIN 7 BARBARA BARBARA QUANTITAT SURNEDRA HEALTHCAR HEALTHCAR E EDGE E EDGE BLOOD [address] COUNT 7 BARBARA BARBARA COMPLETE AUTO&AUTO HEALTHCAR HEALTHCAR [place] [address] INFUSION 7 BARBARA BARBARA HYDRATION EACH HEALTHCAR HEALTHCAR ADDITION[place] [address] LACTATE 7 BARBARA BARBARA HEALTHCAR HEALTHCAR E EDGE E EDGE NONEMERGE A0130 [facility] 7 INC TRANSPORT TRANSPORT REGION 9 ATION CO ATION: Alexandru WILLAMS AMB A0427 SHAI SHAI SERVICE 7 CO CO ALS AMBULANCE AMBULANCE EMERGENCY TAXIN TAXIN TRANSPORT LEVEL 1 RADIOLOGI 54379 RADIOLOGY DOERGER C EXAM 7 CHEST 2 ASSOCIATE VIEWS S OF [facility] FRONTAL&L ATERAL GROUND A0425 SHAI SHAI MILEAGE 7 CO CO PER AMBULANCE AMBULANCE STATUTE TAXIN TAXIN MILE IRRIGAJ 51520 [facility] IMPLNTD 7 BARBARAJOSAFAT BATISTABETH VENOUS ACCESS HEALTHCAR HEALTHCAR DRUG E EDGE E EDGE DELIVERY SYST NONEMERGE A0130 LKLP CAC [facility] NCY 7 INC TRANSPORT TRANSPORT REGION 9 ATION CO ATION: Alexandru WILLAMS HEPATITIS G0472 [facility] C ABO SC 7 BARBARA BARBARA IND HIGH RISK&OTH HEALTHCAR HEALTHCAR CVRD E EDGE E EDGE INDIC NONEMERGE A0130 [facility] 7 INC TRANSPORT TRANSPORT REGION 9 ATION CO ATION: Alexandru WILLAMS HEPATIC 56855 [facility] FUNCTION 7 BARBARA BARBARA PANEL HEALTHCAR HEALTHCAR E EDGE E EDGE LIPID 45385 [facility] PANEL 7 BARBARA BARBARA HEALTHCAR HEALTHCAR E EDGE E EDGE IRRIGAJ 40188 [facility] IMPLNTD 7 BARBARA BARBARA VENOUS ACCESS HEALTHCAR HEALTHCAR DRUG E EDGE E EDGE DELIVERY SYST COLLECTIO 54192 [facility] N VENOUS 7 BARBARA BARBARA BLOOD VENIPUNCT HEALTHCAR HEALTHCAR URE E EDGE E EDGE BLOOD 68666 [facility] COUNT 7 BARBARA BARBARA COMPLETE AUTO&AUTO HEALTHCAR HEALTHCAR DIFRNTL E EDGE E EDGE WBC NONEMERGE A0130 [facility] 7 INC TRANSPORT TRANSPORT REGION 9 ATION CO ATION: Alexandru WILLAMS COMPREHEN 37191 [facility] SIVE 7 BARBARA BARBARA METABOLIC PANEL HEALTHCAR HEALTHCAR E EDGE E EDGE INJECTION J0131 [facility] 7 BARBARA BARBARA ACETAMINO PHEN 10 HEALTHCAR HEALTHCAR MG E EDGE E EDGE INJECTION J2250 [facility] 7 [facility] PER HEALTHCAR HEALTHCAR 1 MG E EDGE E EDGE NONEMERGE A0130 [facility] 7 INC TRANSPORT TRANSPORT REGION 9 ATION CO ATION: Alexandru SANTA 90239 ANESTHESI CAMILLI UPPER GI 7 A GROUP ENDOSCOPY PRACTICE PROXIMAL TO DUODENUM EGD [address] PERCUTANE 7 BARBARA BARBARA OUS [...] 9 ATION CO ATION: Alexandru WILLAMS MOTION [address] FLUOR 6 BARBARA BARBARA EVAL MED CTR MED CTR SWLNG [facility]ESPERSON [facility] SALESPERSON [facility] [place] FUNCJ C/[place] [address] SWALLOWIN 6 BARBARA BARBARA G MED CTR MED CTR DYSFUNCTI [facility]ERSON [facility]ESPERSON [facility] ON&/ORAL FUNCJ FEEDING SWALLOWIN [address] G FUNCJ 6 BARBARA BARBARA W/CINERAD MED CTR MED CTR IOGRAPY/V [facility]ESPERSON [facility]ESPERSON [facility] IDRADIOG LOCM Q[address] 300-399 6 BARBARA BARBARA MG/ML MED CTR MED CTR IODINE SALESPERSON [facility] SALESPERSON [facility] CONCENTRA TION PER ML CT SOFT 58385 RADIOLOGY WELLS SEA TISSUE 6 NECK ASSOCIATE W/CONTRAS S OF NOTH T MATERIAL INJECTION J1642 ST ST HEPARIN 6 BARBARA BARBARA SODIUM MED CTR MED CTR PER [address]ESPERSON [facility] UNITS CREATININ [address] E BLOOD 6 BARBARA BARBARA MED CTR MED CTR SALESPERSON [facility] SALESPERSON [facility] CT THORAX 31214 RADIOLOGY TONY 6 NORA W/CONTRAS ASSOCIATE T S OF NOT MAT[place] [address] [place] PROPH/DX 6 [facility] NJX IV INC INC PUSH SINGLE/1S T SBST/DRUG COMPREHEN 60401 [place] SIVE 6 [facility] METABOLIC INC INC PANEL [place]UG 87046 [place] SCREEN 6 [facility] QUANTITAT INC INC SURENDRA LEVETIRAC ETAM CREATINE 80974 [place] KINASE 6 [place] [place] [address] [place] HEAD/BRAI 6 [facility] N W/O INC INC CONTRAST MATERIAL RADIOLOGI 24968 [place] C 6 [facility] MEM [...] AMBULANCE AMBULANCE EMERGENCY TAXIN TAXIN TRANSPORT BLOOD 93977 [place] COUNT 6 [facility] COMPLETE INC INC AUTO&[place] [address] [place] TROPONIN 6 [facility] QUANTITAT INC INC SURENDRA URNLS DIP 29966 [place] 6 [facility] STICK/TAB INC INC LET REAGENT AUTO MICROSCOP Y CREATINE 41752 [place] KINASE MB 6 [facility] FRACTION INC INC ONLY H[facility] G0463 ST ST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 SALESPERSON WOMEN[facility]ATS ST SC WK THERAPEUT 83702 [place] IC PX 1/> 4 [place] AREAS CARE & CARE & EACH 15 REHABILI REHABILI MIN EXERCISES NONEMERGE A0130 LKLP CAC LKLP NCY 4 INC [facility] 9 ACTION_I ATION: GAYLACHETNAHillary WILLAMS NONEMERGE A0130 LKLP CAC LKLP NCY 4 INC [facility] 9 ACTION_[place]: [place] [address] GUIDANCE 4 BARBARA BARBARA RADIATION MED CTR MED CTR THERAPY SALESPERSON [facility]EN[facility] ST SALESPERSON WOMEN[facility]ATS ST FLDS PLACEMENT NTSTY [address] MODUL 4 BARBARA BARBARA DLVR MED CTR MED CTR 1/CENTER CONSULTANT SALESPERSON WOMEN[facility] ST SALESPERSON WOMEN'S HATS ST FLDS/ARCS SC TX SESSION NTSTY [address] MODUL 4 BARBARA BARBARA DLVR MED CTR MED CTR 1/CENTER CONSULTANT SALESPERSON WOMEN[facility] ST SALESPERSON WOMEN'[facility]ATS ST FLDS/[place] [address] GUIDANCE 4 BARBARA BARBARA RADIATION MED CTR MED CTR THERAPY SALESPERSON WOMEN[facility] ST SALESPERSON WOMEN'[facility] ST FLDS PLACEMENT THERAPEUT 74871 [place] IC PX 1/> 4 [place] AREAS CARE & CARE & EACH 15 REHABILI REHABILI MIN EXERCISES RADIATION 99372 ONCOLOGY MORENO PRA 4 HEMATOLOG TREATMENT Y CARE, IN MANAGEMEN T 5 [place] [address] [place] 1/> AREAS 4 [place] EA 15 CARE & CARE & MIN GAIT REHABILI REHABILI TRAINJ W/STAIR THERAPEUT 84938 [place] IC PX 1/> 4 [place] AREAS CARE & CARE & EACH 15 REHABILI REHABILI MIN EXERCISES INJECTION J1453 ONCOLOGY POLI CHR 4 HEMATOLOG FOSAPREPI Y CARE, TANT 1 [place] [address] ST MAGNESIUM 4 BARBARA BARBARA MED CTR MED CTR SALESPERSON [facility] ST SALESPERSON [facility]OMEN[facility] ST COMPREHEN 67912 ONCOLOGY CALLI SIVE 4 HEMATOLOG LAW METABOLIC Y CARE[place] [address] [facility]UIDANCE 4 BARBARA BARBARA RADIATION MED CTR MED CTR THERAPY SALESPERSON [facility]OMEN[facility] ST SALESPERSON WOMEN'[facility] ST FLDS PLACEMENT NTSTY 09187 [facility] MODUL 4 [place] DLVR MED CTR COMM CARE 1/CENTER CONSULTANT SALESPERSON WOMEN'S HATS ST FLDS/ARCS SC TX SESSION BLOOD 44410 ONCOLOGY CALLI COUNT 4 HEMATOLOG LAW COMPLETE Y CARE, AUTO&AUTO IN DIFRNTL WBC THERAPEUT 94458 ONCOLOGY POLI CHR IC 4 HEMATOLOG INJECTION Y CARE, IV PUSH IN EACH NEW DRUG COLLECTIO 93542 ONCOLOGY POLI CHR N 4 HEMATOLOG CAPILLARY Y CARE, BLOOD IN SPECIMEN NONEMERGE A0130 LKLP CAC LKLP NCY 4 [facility] TRANSPORT REGION 9 ACTION_I ATION: MARYCRUZ Vanegas VAN INJECTION J9060 ONCOLOGY POLI CHR 4 HEMATOLOG CISPLATIN Y CARE, POWDER IN OR SOLUTION 10 MG INJECTION J2469 ONCOLOGY POLI CHR 4 HEMATOLOG PALONOSET Y CARE, VICENTE HCL IN 25 MCG CHEMOTX 55330 ONCOLOGY POLI CHR ADMN IV 4 HEMATOLOG NFS TQ UP Y CARE, 1 HR IN SBST/[place] [address] ONCOLOGY POLI CHR INFUSION 4 HEMATOLOG THER Y CARE, PROPH IN ADDL SE[place]ENT[place] L [place] [address] ONCOLOGY POLI CHR INFUSION 4 HEMATOLOG HYDRATION Y CARE, EACH IN ADDITIONA L HOUR NTSTY 94480 [facility] MODUL 4 [place] DLVR MED CTR COMM CARE 1/CENTER CONSULTANT SALESPERSON WOMEN[facility]ATS ST FLDS/[place] [address] ST GUIDANCE 4 BARBARA BARBARA RADIATION MED CTR MED CTR THERAPY SALESPERSON [facility] ST SALESPERSON [facility] [place] [address] [place] 1/> AREAS 4 [place] EACH 15 CARE & CARE & MIN REHABILI REHABILI NEUROMUSC REEDUCA THERAPEUT 61842 [place] IC PX 1/> 4 [place] AREAS CARE & CARE & EACH 15 REHABILI REHABILI MIN EXERCISES THERAPEUT 48915 [place] IC PX 1/> 4 [place] AREAS CARE & CARE & EACH 15 [place] [address] [place] 1/> AREAS 4 [place] EACH 15 CARE & CARE & [place] [address] [facility] GUIDANCE 4 BARBARA BARBARA RADIATION MED CTR MED CTR THERAPY SALESPERSON [facility]EN[facility] ST SALESPERSON WOMEN[facility] ST FLDS PLACEMENT NTSTY [address]74 ST MODUL 4 BARBARA BARBARA DLVR MED CTR MED CTR 1/CENTER CONSULTANT SALESPERSON WOMEN[facility]ATS ST SALESPERSON WOMEN'S HATS ST FLDS/ARCS SC TX SESSION CONTINUIN 25441 [facility] MEDICAL 4 BARBARA BARBARA PHYSICS MED CTR MED CTR CONSLTJ SALESPERSON WOMEN'S HATS ST SALESPERSON WOMEN'S HATS ST SC WK NONEMERGE A0130 LKLP CAC LKLP NCY 4 [facility] TRANSPORT REGION 9 ACTION_I ATION: MARYCRUZ WILLAMS NONEMERGE A0130 LKLP CAC LKLP NCY 4 INC [facility] 9 ACTION_I ATION: MARYCRUZ WILLAMS NTSTY [address] MODUL 4 BARBARA BARBARA DLVR MED CTR MED CTR 1/CENTER CONSULTANT SALESPERSON W[facility]EN[facility]ATS ST SALESPERSON WOMEN'S HATS ST FLDS/ARCS SC TX SESSION THERAPEUT 95792 [place] ACTVITY 4 [place] DIRECT PT CARE & CARE & CONTACT REHABILI REHABILI E[place] [address] [place] [address] GUIDANCE 4 BARBARA BARBARA RADIATION MED CTR MED CTR THERAPY SALESPERSON [facility] ST SALESPERSON WOMEN[facility]ATS ST FLDS PLACEMENT THERAPEUT 51444 [place] IC PX 1/> 4 [place] AREAS CARE & CARE & EACH 15 REHABILI REHABILI MIN EXERCISES THERAPEUT 55555 [place] IC PX 1/> 4 [place] AREAS CARE & CARE & EACH 15 REHABILI REHABILI MIN EXERCISES RADIATION 11246 ONCOLOGY MORENO PRA 4 HEMATOLOG TREATMENT Y CARE, IN MANAGEMEN T 5 [place] [address] [place] 1/> AREAS 4 [place] EA 15 CARE & CARE & MIN GAIT REHABILI REHABILI TRAINJ W/[place] [address] GUIDANCE 4 BARBARA BARBARA RADIATION MED CTR MED CTR THERAPY SALESPERSON [facility]EN[facility] ST SALESPERSON WOMEN[facility]ATS ST FLDS PLACEMENT NTSTY [address] MODUL 4 BARBARA BARBARA DLVR MED CTR MED CTR 1/CENTER CONSULTANT SALESPERSON WOMEN[facility] HATS ST SALESPERSON WOMEN'S HATS ST FLDS/ARCS SC TX SESSION NONEMERGE A0130 LKLP CAC LKLP NCY 4 INC [facility] 9 ACTION_I ATION: MARYCRUZ WILLAMS NONEMERGE A0130 LKLP CAC LKLP NCY 4 INC [facility] 9 ACTION_I ATION: MARYCRUZ WILLAMS CHEMOTX 04455 ONCOLOGY CALLI ADMN IV 4 HEMATOLOG LAW NFS TQ UP Y CARE, 1 HR IN SBST/DRUG INJECTION J2469 ONCOLOGY CALLI 4 HEMATOLOG LAW PALONOSET Y CARE, VICENTE HCL IN 25 MCG INJECTION J9060 ONCOLOGY CALLI 4 HEMATOLOG LAW CISPLATIN Y CARE, POWDER IN OR SOLUTION 10 [place] [address] ONCOLOGY CALLI INFUSION 4 HEMATOLOG LAW THER Y CARE, PROPH IN ADDL SEQUENTIA L TO [address] MODUL 4 BARBARA BARBARA DLVR MED CTR MED CTR 1/CENTER CONSULTANT SALESPERSON [facility]EN[facility]ATS ST SALESPERSON WOMEN'S H[facility] ST FLDS/[place] [address] [facility]UIDANCE 4 BARBARA BARBARA RADIATION MED CTR MED CTR THERAPY SALESPERSON WOMEN[facility]ATS ST SALESPERSON WOMEN[facility]ATS ST FLDS PLACEMENT BLOOD 87094 ONCOLOGY CALLI COUNT 4 HEMATOLOG LAW COMPLETE Y CARE, AUTO&AUTO IN DIFRNTL WBC THERAPEUT 83540 ONCOLOGY CALLI IC 4 HEMATOLOG LAW INJECTION Y CARE, IV PUSH IN EACH NEW DRUG COMPREHEN 35976 ONCOLOGY CALLI SIVE 4 HEMATOLOG LAW METABOLIC Y CARE, PANEL IN INJECTION J1453 ONCOLOGY CALLI 4 HEMATOLOG LAW FOSAPREPI Y CARE, TANT 1 [place] [address] [place] 1/> AREAS 4 [place] EACH 15 CARE & CARE & MIN REHABILI REHABILI NEUROMUSC REEDUCA THERAPEUT 86120 [place] IC PX 1/> 4 [place] AREAS CARE & CARE & EACH 15 REHABILI REHABILI MIN EXERCISES SELF-CARE 36699 [place] /HOME 4 [place] MGMT CARE & CARE & TRAINING REHABILI REHABILI EACH [address] [place] [address] GUIDANCE 4 BARBARA BARBARA RADIATION MED CTR MED CTR THERAPY SALESPERSON [facility]OMEN[facility] ST SALESPERSON WOMEN[facility] ST FLDS PLACEMENT NTSTY [address] MODUL 4 BARBARA BARBARA DLVR MED CTR MED CTR 1/CENTER CONSULTANT SALESPERSON WOMEN[facility]ATS ST SALESPERSON WOMEN'S HATS ST FLDS/ARCS SC TX SESSION NONEMERGE A0130 LKLP CAC LKLP NCY 4 INC [facility]SP[facility] REGION 9 ACTION_I ATION: MARYCRUZ WILLAMS NONEMERGE A0130 LKLP CAC LKLP NCY 4 INC [facility] TRANSPORT REGION 9 ACTION_I ATION: MARYCRUZ WILLAMS NTSTY [address] MODUL 4 BARBARA BARBARA DLVR MED CTR MED CTR 1/CENTER CONSULTANT SALESPERSON WOMEN[facility]ATS ST SALESPERSON WOMEN'[facility]ATS ST FLDS/[place] [address] GUIDANCE 4 BARBARA BARBARA RADIATION MED CTR MED CTR THERAPY SALESPERSON [facility] SALESPERSON [facility] FLDS PLACEMENT [place] VASC [address] ACCESS 4 BARBARA BARBARA SITS VSL MED CTR MED CTR PATENCY SALESPERSON [facility] SALESPERSON [facility] ST NDL ENTRY INSJ [address] TUNNELED 4 BARBARA BARBARA CTR VAD MED CTR MED CTR W/SUBQ SALESPERSON WOMEN[facility] ST SALESPERSON WOMEN[facility] HATS ST PORT AGE 5 YR/> CONTINUIN [address] G MEDICAL 4 BARBARA BARBARA PHYSICS MED CTR MED CTR CONSLTJ SALESPERSON WOMEN[facility] ST SALESPERSON WOMEN[facility]ATS ST SC WK FLUORO 24246 RADIOLOGY [place] CENTRAL 4 BRA VENOUS ASSOCIATE ACCESS S OF [facility] DEV PLACEMENT PROTHROMB 09027 [facility] IN TIME 4 [place] MED CTR COMM CARE SALESPERSON WOMEN[facility]S HATS ST THERAPEUT 68140 [place] IC PX 1/> 4 [place] AREAS CARE & CARE & EACH 15 REHABILI REHABILI MIN EXERCISES BLOOD [address] COUNT 4 BARBARA BARBARA COMPLETE MED CTR MED CTR AUTO&AUTO SALESPERSON [facility] ST SALESPERSON WOMEN[facility]ATS ST DIFRNTL WBC COLLECTIO [address] N VENOUS 4 BARBARA BARBARA BLOOD MED CTR MED CTR VENIPUNCT SALESPERSON WOMEN[facility] ST SALESP[place] [address] [place] 1/> AREAS 4 [place] EA 15 CARE & CARE & MIN GAIT REHABILI REHABILI TRAINJ W/[place] [address] GUIDANCE 4 BARBARA BARBARA RADIATION MED CTR MED CTR THERAPY SALESPERSON WOMEN[facility] ST SALESPERSON WOMEN[facility] ST FLDS PLACEMENT NTSTY [address] MODUL 4 BARBARA BABR[place] DLVR MED CTR MED CTR 1/CENTER CONSULTANT SALESPERSON WOMEN'S HATS ST SALESPERSON WOMEN'S HATS ST FLDS/ARCS SC TX SESSION NONEMERGE A0130 LKLP CAC LKLP NCY 4 INC [facility]SP[facility] REGION 9 ACTION_I ATION: MARYCRUZ WILLAMS NONEMERGE A0130 LKLP CAC LKLP NCY 4 INC [facility] TRANSPORT REGION 9 ACTION_I ATION: MARYCRUZ WILLAMS NTSTY [address] MODUL 4 BARBARA BARBARA DLVR MED CTR MED CTR 1/CENTER CONSULTANT SALESPERSON WOMEN[facility]ATS ST SALESPERSON WOMEN'[facility]ATS ST FLDS/[place] [address] GUIDANCE 4 BARBARA BARBARA RADIATION MED CTR MED CTR THERAPY SALESPERSON WOMEN[facility] ST SALESPERSON WOMEN'[facility]ATS ST FLDS PLACEMENT THERAPEUT 01663 [place] ACTVITY 4 [place] DIRECT PT CARE & CARE & CONTACT REHABILI REHABILI EACH [address] [place] [address] [place] 1/> AREAS 4 [place] EA 15 CARE & CARE & MIN GAIT REHABILI REHABILI TRAINJ W/STAIR THERAPEUT 75295 [facility] IC PX 1/> 4 [place] AREAS CARE & CARE & EACH 15 REHABILI REHABILI MIN EXERCISES RADIATION 53720 ONCOLOGY MORENO PRA 4 HEMATOLOG TREATMENT Y CARE, IN MANAGEMEN T 5 TREATMENT S THERAPEUT 16801 [place] IC PX 1/> 4 [place] AREAS CARE & CARE & EACH 15 [place] [address] [place] 1/> AREAS 4 [place] EACH 15 CARE & CARE & MIN REHABILI REHABILI NEUROMUSC REEDUCA THERAPEUT 17809 [place] ACTVITY 4 [place] DIRECT PT CARE & CARE & CONTACT REHABILI REHABILI EACH 15 MIN [address] TREATMENT 4 BARBARA BARBARA MED CTR MED CTR PROCEDURE SALESPERSON [facility]OMEN[facility] ST SALESPERSON WOM[facility] ST NTSTY [address] MODUL 4 BARBARA BARBARA DLVR MED CTR MED CTR 1/CENTER CONSULTANT SALESPERSON WOMEN'[facility] HATS ST SALESPERSON WOMEN'[facility] ST FLDS/[place] [address] GUIDANCE 4 BARBARA BARBARA RADIATION MED CTR MED CTR THERAPY SALESPERSON WOMEN'S HATS ST SALESPERSON WOMEN'S HATS ST FLDS PLACEMENT NONEMERGE A0130 LKLP CAC LKLP NCY 4 INC [facility] TRANSPORT REGION 9 ACTION_I ATION: MARYCRUZ WILLAMS NONEMERGE A0130 LKLP CAC LKLP NCY 4 INC COMM[facility] TRANSPORT REGION 9 ACTION_[place]: [place] [address] GUIDANCE 4 BARBARA BARBARA RADIATION MED CTR MED CTR THERAPY SALESPERSON WOMEN[facility]ATS ST SALESPERSON WOMEN[facility]ATS ST FLDS PLACEMENT NTSTY [address] MODUL 4 BARBARA BARBARA DLVR MED CTR MED CTR 1/CENTER CONSULTANT SALESPERSON WOMEN[facility]ATS ST SALESPERSON WOMEN'S HATS ST FLDS/ARCS SC TX SESSION BLOOD 10897 ONCOLOGY CALLI COUNT 4 HEMATOLOG LAW COMPLETE Y CARE, AUTO&AUTO IN DIFRNTL WBC CONTINUIN [address] G MEDICAL 4 BARBARA BARBARA PHYSICS MED CTR MED CTR CONSLTJ SALESPERSON WOMEN[facility]ATS ST SALESPERSON WOMEN[facility] HATS ST SC WK COMPREHEN 23057 ONCOLOGY ONCOLOGY SIVE 4 HEMATOLOG HEMATOLOG METABOLIC Y CARE, Y CARE, PANEL IN [place] NTSTY [address] MODUL 4 BARBARA BARBARA DLVR MED CTR MED CTR 1/CENTER CONSULTANT SALESPERSON WOMEN[facility]ATS ST SALESPERSON WOMEN'S [facility]ATS ST FLDS/[place] [address] GUIDANCE 4 BARBARA BARBARA RADIATION MED CTR MED CTR THERAPY SALESPERSON WOMEN'S HATS ST SALESPERSON WOMEN'S HATS ST FLDS PLACEMENT NONEMERGE A0130 LKLP CAC LKLP NCY 4 INC [facility] TRANSPORT REGION 9 ACTION_I ATION: MARYCRUZ WILLAMS NONEMERGE A0130 LKLP CAC LKLP NCY 4 INC COMMUNITY TRANSPORT REGION 9 ACTION_[place]: [place] [address] GUIDANCE 4 BARBARA BARBARA RADIATION MED CTR MED CTR THERAPY SALESPERSON WOMEN[facility] ST SALESPERSON WOMEN'S HATS ST FLDS PLACEMENT NTSTY [address] MODUL 4 BARBARA BARBARA DLVR MED CTR MED CTR 1/CENTER CONSULTANT SALESPERSON WOMEN[facility]ATS ST SALESPERSON WOMEN'S HATS ST FLDS/ARCS [place] S[place] [address] SIMULAJ-A 4 BARBARA BARBARA IDED MED CTR MED CTR FIELD SALESPERSON [facility] ST SALESPERSON WOMEN[facility] ST SETTING SIMPLE THERAPEUT 53266 [place] IC PX 1/> 4 [place] AREAS CARE & CARE & EACH 15 [place] [address] [place] 1/> AREAS 4 [place] EA 15 CARE & CARE & MIN GAIT REHABILI REHABILI TRAINJ W/STAIR THERAPEUT 15704 [place] ACTVITY 4 [place] DIRECT PT CARE & CARE & CONTACT REHABILI REHABILI EACH 15 MIN THERAPEUT 54278 [place] IC PX 1/> 4 [place] AREAS CARE & CARE & EACH 15 [place] [address] [place] 1/> AREAS 4 [place] EA 15 CARE & CARE & MIN GAIT REHABILI REHABILI TRAINJ W/STAIR THERAPEUT 50928 [place] IC PX 1/> 4 [place] AREAS CARE & CARE & EACH 15 REHABILI REHABILI MIN EXERCISES THERAPEUT 80387 [place] IC PX 1/> 4 [place] AREAS CARE & CARE & EACH 15 REHABILI REHABILI MIN EXERCISES SELF-CARE 26277 [place] /HOME 4 [place] MGMT CARE & CARE & TRAINING REHABILI REHABILI EACH 15 [place] [address] [place] 1/> AREAS 4 [place] EA 15 CARE & CARE & MIN GAIT REHABILI REHABILI TRAINJ W/STAIR SPEC [address] MEDICAL 4 BARBARA JIMENEZ RADJ MED CTR MED CTR PHYSICS SALESPERSON [facility] ST SALESPERSON WOM[facility] CONSLTJ MLC IMRT [address] [facility] & [facility] ION PER SALESPERSON WOMEN'[facility] HATS ST SALESPERSON [facility] [address] [place] 1/> AREAS 4 [place] EA 15 CARE & CARE & MIN GAIT REHABILI REHABILI TRAINJ W/STAIR THERAPEUT 47873 [place] ACTVITY 4 [place] DIRECT PT CARE & CARE & CONTACT REHABILI REHABILI EACH [address] RADIATION 4 BARBARAJOSAFAT VITALETH MED CTR MED CTR DOSIMETRY SALESPERSON [facility] SALESPERSON [facility] CALCULATI ON NTSTY [address] MODUL 4 BARBARA BARBARA RADTHX MED [facility] MED [facility] PLN SALESPERSON [facility] SALESPERSON [facility] DOSE-VOL HISTOS THERAPEUT 41628 BRIDGE BRIDGE IC PX 1/> 4 POINT POINT AREAS CARE & CARE & EACH 15 REHABILI REHABILI MIN EXERCISES THERAPEUT 16669 BRIDGE BRIDGE IC PX 1/> 4 POINT POINT AREAS CARE & CARE & EACH 15 [place] [address] BRIDGE BRIDGE 1/> AREAS 4 POINT POINT EACH 15 CARE & CARE & MIN REHABILI [place] [address] BRIDGE BRIDGE 1/> AREAS 4 POINT POINT EA 15 CARE & CARE & MIN GAIT REHABILI REHABILI TRAINJ W/[place] [address] BRIDGE BRIDGE SWALLOWIN 4 POINT POINT G CARE & CARE & DYSFUNCTI REHABILI REHABILI ON&/[place] [address] BRIDGE BRIDGE SWALLOWIN 4 POINT POINT G CARE & CARE & DYSFUNCTI REHABILI REHABILI ON&/[place] [address] BRIDGE BRIDGE 1/> AREAS 4 POINT POINT EA 15 CARE & CARE & MIN GAIT REHABILI REHABILI TRAINJ W/STAIR THERAPEUT 05853 BRIDGE BRIDGE IC PX 1/> 4 POINT POINT AREAS CARE & CARE & EACH 15 [place]HAB[place] [address] BRIDGE BRIDGE SWALLOWIN 4 POINT POINT G CARE & CARE & DYSFUNCTI REHABILI REHABILI ON&/[place] [address] BRIDGE CUMBERLAN 1/> AREAS 4 [place] EACH 15 CARE & BEHAVIORA MIN REHABILI L NEUROMUSC REEDUCA THERAPEUT 55742 BRIDGE BRIDGE IC PX 1/> 4 POINT POINT AREAS CARE & CARE & EACH 15 REHABILI REHABILI MIN EXERCISES SELF-CARE 93685 BRIDGE BRIDGE /HOME 4 POINT POINT MGMT CARE & CARE & TRAINING REHABILI REHABILI EACH 15 [place] [address] BRIDGE BRIDGE 1/> AREAS 4 POINT POINT EA 15 CARE & CARE & MIN GAIT REHABILI REHABILI TRAINJ W/[place] [address] BRIDGE CUMBERLAN 1/> AREAS 4 [place] EA 15 CARE & BEHAVIORA MIN GAIT REHABILI L TRAINJ W/STAIR THERAPEUT 49396 BRIDGE BRIDGE ACTVITY 4 POINT POINT DIRECT PT CARE & CARE & CONTACT REHABILI REHABILI EACH 15 MIN THERAPEUT 30993 BRIDGE BRIDGE IC PX 1/> 4 POINT POINT AREAS CARE & CARE & EACH 15 [place] [address] BRIDGE BRIDGE SWALLOWIN 4 POINT POINT G CARE & CARE & DYSFUNCTI REHABILI REHABILI ON&/[place] [address] BRIDGE BRIDGE SWALLOWIN 4 POINT POINT G CARE & CARE & DYSFUNCTI REHABILI REHABILI ON&/ORAL FUNCJ FEEDING THERAPEUT 89653 BRIDGE BRIDGE IC PX 1/> 4 POINT POINT AREAS CARE & CARE & EACH 15 [place] [address] BRIDGE BRIDGE 1/> AREAS 4 POINT POINT EACH 15 CARE & CARE & MIN REHABILI REHABILI NEUROMUSC REEDUCA SELF-CARE 38143 BRIDGE BRIDGE /HOME 4 POINT POINT MGMT CARE & CARE & TRAINING REHABILI REHABILI EACH 15 [place] [address] BRIDGE BRIDGE 1/> AREAS 4 POINT POINT EA 15 CARE & CARE & MIN GAIT REHABILI REHABILI TRAINJ W/[place] [address] BRIDGE BRIDGE 1/> AREAS 4 POINT POINT EA 15 CARE & CARE & MIN GAIT REHABILI REHABILI TRAINJ W/STAIR SELF-CARE 40806 BRIDGE BRIDGE /HOME 4 POINT POINT MGMT CARE & CARE & TRAINING REHABILI REHABILI EACH 15 MINUTES THERAPEUT 28994 BRIDGE BRIDGE IC PX 1/> 4 POINT POINT AREAS CARE & CARE & EACH 15 [place] [address] BRIDGE BRIDGE SWALLOWIN 4 POINT POINT G CARE & CARE & DYSFUNCTI REHABILI REHABILI ON&/[place] [address] BRIDGE BRIDGE SWALLOWIN 4 POINT POINT G CARE & CARE & DYSFUNCTI REHABILI REHABILI ON&/ORAL FUNCJ FEEDING THERAPEUT 98120 BRIDGE BRIDGE IC PX 1/> 4 POINT POINT AREAS CARE & CARE & EACH 15 REHABILI REHABILI MIN EXERCISES SELF-CARE 43959 BRIDGE BRIDGE /HOME 4 POINT POINT MGMT CARE & CARE & TRAINING REHABILI REHABILI EACH [address] [place] [address] BRIDGE BRIDGE 1/> AREAS 4 POINT POINT EA 15 CARE & CARE & MIN GAIT REHABILI REHABILI TRAINJ W/STAIR THERAPEUT 58101 ONCOLOGY JOSH STRAUSS IC 4 HEMATOLOG RADIOLOGY Y CARE, [place] IN PLANNING COMPLEX THERAPEUT 79908 [facility] [facility] ACTVITY 4 [place] DIRECT PT CARE & CARE & CONTACT REHABILI REHABILI EACH 15 MIN THER RAD 34607 ONCOLOGY JOSH STRAUSS SIMULAJ-A 4 HEMATOLOG IDED [place], [place] [address] DEVICES 4 BARBARA JIMENEZ DESIGN & MED CTR MED CTR CONSTRUCT SALESPERSON WOMEN'S HATS ST SALESPERSON WOMEN[facility] ST ION COMPLEX UNLIS [address] MEDICAL 4 BARBARA VITALETH RADJ MED CTR MED CTR DOSIM TX SALESPERSON WOMEN'S HATS ST SALESPERSON [place] [address] RADIOLOGY [facility] GUIDANCE 4 RADIATION ASSOCIATE THERAPY S OF [facility] FLDS PLACEMENT THERAPEUT 90042 [place] IC PX 1/> 4 [place] AREAS CARE & CARE & EACH 15 REHABILI REHABILI MIN EXERCISES THERAPEUT 56387 [place] IC PX 1/> 4 [place] AREAS CARE & CARE & EACH 15 [place] [address] [place] SWALLOWIN 4 POINT POINT G CARE & CARE & DYSFUNCTI REHABILI REHABILI ON&/ORAL FUNCJ FEEDING THERAPEUT 23272 [facility] ACTVITY 4 PO[place]INT DIRECT PT CARE & CARE & CONTACT REHABILI REHABILI EACH [place] [address] [place] 1/> AREAS 4 [place] EA 15 CARE & CARE & MIN GAIT REHABILI REHABILI TRAINJ W/[place] [address] BR[place]GE CUMBERLAN 1/> AREAS [place] EA 15 CARE & BEHAVIORA MIN GAIT [place]HABIL[place] L TRAINJ W/[place] [address] [place] SWALLOWIN 4 [place] G CARE & CARE & DYSFUNCTI REHABILI REHABILI ON&/ORAL FUNCJ FEEDING THERAPEUT 89895 [place] IC PX 1/> 4 [place] AREAS CARE & CARE & EACH 15 REHABILI REHABILI MIN EXERCISES THERAPEUT 71590 [place] IC PX 1/> 4 POINT [place]INT AREAS CARE & CARE & EACH 15 [place] [address] [place] SWALLOWIN 4 POINT POINT G CARE & CARE & DYSFUNCTI REHABILI REHABILI ON&/[place] [address] [place] 1/> AREAS 4 [place] EA 15 CARE & CARE & MIN GAIT REHABILI REHABILI TRAINJ W/STAIR THERAPEUT 81417 [place] ACTVITY 4 [place] DIRECT PT CARE & BEHAVIORA CONTACT REHABILI L EACH 15 MIN TX SPEECH 92446 [place] LANG 4 [place] VOICE CARE & CARE & COMMJ REHABILI REHABILI &/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 Y PROC IND [place] SPEECH 64200 [place] LANG 4 [place] VOICE CARE & CARE & COMMJ REHABILI REHABILI &/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 Y PROC IND THERAPEUT 74908 [facility] ACTVITY 4 [place] DIRECT PT CARE & CARE & CONTACT REHABILI REHABILI EACH [address] [place] [address] [place] 1/> AREAS 4 [place] EA 15 CARE & CARE & MIN GAIT REHABILI REHABILI TRAINJ W/[place] [address] [place] SWALLOWIN 4 [place] G CARE & CARE & DYSFUNCTI REHABILI REHABILI ON&/ORAL FUNCJ FEEDING THERAPEUT 75107 [place] IC PX 1/> 4 [place] AREAS CARE & CARE & EACH 15 [place] [address] [place] 1/> AREAS 4 [place] EACH 15 CARE & CARE & MIN REHABILI REHABILI NEUROMUSC REEDUCA SELF-CARE 09940 [place] /HOME 4 [place] MGMT CARE & CARE & TRAINING REHABILI REHABILI EACH 15 MINUTES PHYSICAL 12733 [facility] [facility] THERAPY 4 [place] EVALUATIO CARE & CARE & N REHABILI REHABILI EVAL 85229 [facility] ORAL&PHAR 4 [place] YNGEAL CARE & CARE & SWLNG REHABILI REHABILI FUNCJ INITIAL 59178 JIBRINI JIBRINI NURSING 4 [facility] FACILITY CARE/DAY 45 MINUTES THERAPEUT 97164 [place] ACTVITY 4 [place] DIRECT PT CARE & CARE & CONTACT REHABILI REHABILI EACH 15 MIN OCCUPATIO 85396 [place] NAL 4 [place] THERAPY CARE & CARE & EVALUATIO REHABILI REHABILI N ALVEOLOPL [address] ASTY 4 BARBARASARAH VITALETH FT [facility] ANESTHESI 53759 INDEPENDE CLAYBON A 4 NT LORENZO INTRAORAL ANESTHESI WITH OLOGIST BIOPSY NOS SBSQ 54205 [facility] 4 NECK JAM CARE/DAY SURG[place] [address] [place] [address] RADIOLOGY AGOSTO BYR GUIDANCE 4 RADIATION ASSOCIATE [place] [address] ONCOLOGY JOSH STRAUSS DEVICES 4 HEMATOLOG DESIGN & Y CARE, CONSTRUCT IN ION COMPLEX [place]ER RAD 81718 ONCOLOGY JOSH STRAUSS SIMULAJ-A 4 HEMATOLOG IDED Y CARE, FIELD IN SETTING COMPLEX THERAPEUT 08722 ONCOLOGY [facility] IC 4 HEMATOLOG RADIOLOGY Y CARE, [place] IN PLANNING COMPLEX SBSQ 69072 ONCOLOGY [facility] 4 HEMATOLOG CARE/DAY Y CARE, 15 IN MINUTES SBSQ [address] CARE/DAY 25 [place] [address] RADIOLOGY YURIDIA IMAGING [address] ASSOCIATE ATTENUATI S OF NOTH ON SKULL BASE MID-THIGH ANES 26858 [facility] UPP[facility] GI 4 NT NORA ENDOSCOPY ANESTHESI PROXIMAL OLOGIST TO DUODENUM EGD 47727 [facility] PERCUTANE 4 [facility] OUS PLACEMENT PHYSICIAN S GASTROSTO MY TUBE SBSQ 34394 [facility] 4 NECK CARE/DAY SURGERY 15 ASSOC MINUTES INITIAL 45112 [facility] INPATIENT 4 [facility] CONSULT NEW/ESTAB PHYSICIAN PT 80 S MIN SBSQ [address] JASMINA CARE/DAY 25 PHYSICIAN MINUTES S SBSQ 00338 [facility] 4 NECK CARE/DAY SURGERY 15 ASSOC MINUTES SBSQ 27105 [place] [address] NECK AP CARE/DAY SURGERY 25 ASSOC MINUTES RADIOLOGI 75241 RADIOLOGY [facility] 4 EXAMINATI ASSOCIATE ON CHEST S OF NOTH [place] FRONTAL SBSQ [address] JASMINA CARE/DAY 25 PHYSICIAN MINUTES S SBSQ 47331 ONCOLOGY [place] [address] HEMATOLOG LAW CARE/DAY Y CARE, [address] [facility] 4 BARBARA VINCENT CARE/DAY 35 PHYSICIAN MINUTES S SBSQ 06373 [facility] 4 [place] VINCENT CARE/DAY 35 PHYSICIAN MINUTES S INITIAL 63015 ONCOLOGY [facility] 4 HEMATOLOG LAW CARE/DAY Y CARE, 70 IN MINUTES ANES 93558 [facility] 4 NT N ANT THYRD ANESTHESI LARYNX OLOGIST TRACH & LYMPH NECK [address] ANKUR ROUTINE 4 BARBARA GAR ECG W/LEAST PHYSICIAN 12 LDS S EKG I&R ONLY PATH [address] [facility] CONSLTJ 4 BARBARA DOMINGA SURG 1ST MED CTR BLK [place]CT[place] 1 [place] [address] [facility] SURG 4 BARBARA DOMINGA PATHOLOGY MED CTR GROSS&AP ROSCOPIC EXAM INITIAL 39787 [facility] INPATIENT 4 BARBARA VINCENT CONSULT NEW/ESTAB PHYSICIAN PT 80 S MIN RADIOLOGI 63582 RADIOLOGY RALPH C 4 GAR EXAMINATI ASSOCIATE [...] BARBARA BARBARA TRACHEOST FT FT STEVE CHEMO MLCAIN NONEMERGE A0130 LKLP CAC BENNETTS NCY 4 INC TRANSPORT TRANSPORT REGION 9 ATION CO ATION: Alexandru Vanegas VAN NONEMERGE A0130 LKLP CAC BENNETTS NCY 4 INC TRANSPORT TRANSPORT REGION 9 ATION CO ATION: Alexandru WILLAMS ECG [address] ROUTINE 4 BARBARA BARBARA ECG MED CTR MED CTR W/LEAST SALESPERSON WOMEN'S HATS ST SALESPERSON WOMEN'S HATS ST 12 LDS TRCG ONLY W/O I&R ECG [address]58 ST TIO MAR ROUTINE 4 BARBARA ECG MED CTR W/LEAST 12 LDS I&R ONLY CT THORAX [address] 4 BARBARA BARBARA W/CONTRAS FT FT T CHEMO CHEMO MATERIAL NONEMERGE A0130 LKLP CAC DANIELS NCY 4 INC TRANSPORT TRANSPORT REGION 9 [facility] ATION: Alexandru MARYCRUZ WILLAMS CT SOFT [address] TISSUE 4 BARBARA BARBARA NECK FT FT W/CONTRAS CHEMO CHEMO T MATERIAL ADLT SZD T4528 PERSONAL PERSONAL DISPBL 4 TOUCH TOUCH INCONT HOME CORRECTION CARE PROD OF OF UNDWEAR XTRA LG EA NONEMERGE A0130 LKLP CAC KESHANETTS NCY 4 INC TRANSPORT TRANSPORT REGION 9 [facility] ATION: Alexandru MARYCRUZ WILLAMS LARYNGOSC 40528 [facility] & KEMPINERS OPY 4 NECK JAM FLEXIBLE SURGERY DIAGNOSTI ASSOC C NONEMERGE A0130 LKLP CAC DANIELS NCY 4 INC TRANSPORT TRANSPORT REGION 9 [facility] ATION: Alexandru MARYCRUZ WILLAMS RESP ASST E0470 [...] PERSONAL DISPBL 4 TOUCH TOUCH INCONT HOME CORRECTION CARE PROD OF OF UNDWEAR XTRA LG EA HUMDIFIR E0562 [facility] HEATED 4 SERVICES SERVICES USED INC INC W/POS ARWAY PRESSURE DEVICE RESP ASST E0470 [facility] DEVC 4 SERVICES SERVICES BI-LEVL INC INC PRSS CAPABILIT Y W/O BACKU BASIC [address] METABOLIC 4 BARBARA BARBARA PANEL MED CTR MED CTR CALCIUM SALESPERSON WOMEN[facility]S HATS ST SALESPERSON WOMEN[facility]S HATS ST TOTAL HEMOGLOBI [address] N 4 BARBARA BARBARA GLYCOSYLA MED CTR MED CTR CASSIUS A1C SALESPERSON WOMEN[facility]S HATS ST SALESPERSON WOMEN'S HATS ST LIPID [address] PANEL 4 BARBARA BARBARA MED CTR MED CTR SALESPERSON WOMEN'S HATS ST SALESPERSON WOMEN[facility]ATS ST HEPATIC [address] FUNCTION 4 BARBARA BARBARA PANEL MED CTR MED CTR SALESPERSON WOMEN'S HATS [place] [address] THYROID 4 BARBARA BARBARA STIMULATI MED CTR MED CTR NG SALESPERSON WOMEN'S HATS ST SALESPERSON WOMEN'S HATS ST HORMONE TSH RESP ASST E0470 CON[facility]ARE CONVACARE DEVC 4 SERVICES SERVICES BI-LEVL INC INC PRSS CAPABILIT Y W/O BACKU HUMDIFIR E0562 CONV[facility]ARE CONVACARE HEATED 4 SERVICES SERVICES USED INC INC W/POS ARWAY PRESSURE DEVICE ADLT SZD T4528 PERSONAL PERSONAL DISPBL 4 TOUCH TOUCH INCONT HOME CORRECTION CARE PROD OF OF UNDWEAR XTRA LG EA NONEMERGE A0130 LKLP CAC BENNETTS NCY 4 INC TRANSPORT TRANSPORT REGION 9 ATION CO ATION: Alexandru WILLAMS NONEMERGE A0130 LKLP CAC BENNETTS NCY 4 INC TRANSPORT TRANSPORT REGION 9 ATION CO ATION: Alexandru WILLAMS POLYSOM [address] [facility] [place] PAT 6/>YRS 4 BARBARA SLEEP MED CTR W/CPAP 4/> [place] [address] PROSTATE 3 BARBARA BARBARA SPECIFIC MED CTR MED CTR ANTIGEN SALESPERSON WOMEN'S HATS ST SALESPERSON WOMEN'[facility] HATS ST TOTAL HEPATIC [address] FUNCTION 3 BARBARA BARBARA PANEL MED CTR MED CTR SALESPERSON WOMEN'S HATS ST SALESPERSON WOMEN'S HATS ST IIV3 [address] [place] VACCINE 3 BARBARA AP SPLIT VIRUS 0.5 PHYSICIAN ML S DOSAGE IM USE HEMOGLOBI [address] N 3 BARBARA BARBARA GLYCOSYLA MED CTR MED CTR CASSIUS A1C SALESPERSON WOMEN'S HATS ST SALESPERSON WOMEN'S HATS ST BASIC [address] METABOLIC 3 BARBARA BARBARA PANEL MED CTR MED CTR CALCIUM SALESPERSON WOMEN'S HATS ST SALESPERSON WOMEN'S HATS ST TOTAL COLLECTIO 07797 ST ROCK N VENOUS 3 BARBARA AP BLOOD VENIPUNCT PHYSICIAN URE S ADLT SZD T4528 PERSONAL PERSONAL DISPBL 3 TOUCH TOUCH INCONT HOME CORRECTION CARE [place] [address] THYROID 3 BARBARA BARBARA STIMULATI MED CTR MED CTR NG SALESPERSON WOMEN'S HATS ST SALESPERSON WOMEN'S HATS ST HORMONE TSH ADLT SZD T4528 PERSONAL PERSONAL DISPBL 3 TOUCH TOUCH INCONT HOME CORRECTION CARE PROD OF OF UNDWEAR XTRA LG EA POLYSOM 63945 ST MILES PAT 6/>YRS 3 BARBARA SLEEP 4/> MED CTR ADDL RHIANNA ATTND NONEMERGE A0130 LKLP CAC [facility]EN[facility]TS NCY 3 INC TRANSPORT TRANSPORT REGION 9 ATION CO ATION: Alexandru WILLAMS OPHTH [address], XM&EVAL OD, PSC COMPRE NEW PT 1/> VST DETERMINA [address], REFRACTIV OD, PSC E STATE NONEMERGE A0130 LKLP CAC BENNETTS NCY 3 INC TRANSPORT TRANSPORT REGION 9 ATION CO ATION: Alexandru WILLAMS ADLT SZD T4528 PERSONAL PERSONAL DISPBL 3 TOUCH TOUCH INCONT HOME CORRECTION CARE PROD OF OF UNDWEAR XTRA LG EA NONEMERGE A0130 LKLP CAC BENNETTS NCY 3 INC TRANSPORT TRANSPORT REGION 9 [place]: [place] [address] RADIOLOGY CHANTILLY HEAD/BRAI 3 ISAIAH N W/O ASSOCIATE CONTRAST S OF NOT MATERIAL ECG [address] ST HULLER ROUTINE 3 BARBARA RAL ECG MED CTR W/LEAST 12 LDS I&R ONLY GROUND A0425 SHAI SHAI MILEAGE 3 CO CO PER AMBULANCE AMBULANCE STATUTE TAXIN TAXIN MILE AMB A0427 SHAI SHAI SERVICE 3 CO CO ALS AMBULANCE AMBULANCE EMERGENCY TAXIN TAXIN TRANSPORT LEVEL 1 ADLT SZD T4528 PERSONAL PERSONAL DISPBL 3 TOUCH TOUCH INCONT HOME CORRECTION CARE PROD OF OF UNDWEAR XTRA LG EA IIV3 VACC [address] 2 BARBARA [facility] PRESERVAT SURENDRA FREE PHYSICIAN 0.5 ML S DOSAGE IM USE REMOVAL [address] [facility] SKN TAGS 2 BARBARA [facility]ENTER CONSULTANT FIBRQ TAGS ANY PHYSICIAN AREA S UPW/15 REPR/SRVC K0739 THE THE DME NOT 2 SCOOTER SCOOTER O2 RQR STORE STORE TECH CMPNT PER [address] [place] [address] THYROID 2 BARBARA BARBARA STIMULATI NG MEDICALCE MEDICAL[place] [address] PROSTATE 2 BARBARA BARBARA SPECIFIC ANTIGEN MEDICALCE MEDICALCE TOTAL NTER NTER AMB A0427 SHAI SHAI SERVICE 2 CO CO ALS AMBULANCE AMBULANCE EMERGENCY TAXIN TAXIN TRANSPORT LEVEL 1 GROUND A0425 SHAI SHAI MILEAGE 2 CO CO PER AMBULANCE AMBULANCE STATUTE TAXIN TAXIN MILE BASIC [address] METABOLIC 2 BARBARA BARBARA PANEL CALCIUM MEDICALCE MEDICALCE TOTAL NTER NTER HEMOGLOBI [address] N 2 BARBARA BARBARA GLYCOSYLA CASSIUS A1C MEDICALCE MEDICALCE NTER NTER COLLECTIO 98127 ST ROCK N VENOUS 2 BARBARA MIC BLOOD VENIPUNCT PHYSICIAN URE S HEPATIC [address] FUNCTION 2 BARBARA BARBARA PANEL MEDICALCE MEDICALCE NTER NTER LIPID [address] PANEL 2 BARBARA BARBARA MEDICALCE MEDICALCE NTER NTER NONEMERGE A0100 LK [facility] NCY 2 COMMUNITY TRANSPORT TRANSPORT ACTION ATION CO ATION; L TAXI ALBUMIN [address] ST ST URINE 2 BARBARA BARBARA MICROALBU MIN MEDICALCE MEDICAL[place] [address] THYROID 2 BARBARA BARBARA STIMULATI NG MEDICALCE MEDICAL[place] [address] FREE 2 BARBARAJOSAFAT JIMEENZ THYROXINE MEDICALCE MEDICALCE NTER NTER CREATININ [address] E OTHER 2 BARBARARED VITALETH SOURCE MEDICALCE MEDICALCE NTER NTER REPR/SRVC K0739 THE THE DME NOT 2 SCOOTER SCOOTER O2 RQR STORE STORE TECH CMPNT PER 15 MINS PWR WC K0825 THE THE GRP 2 2 SCOOTER SCOOTER HEVY DUTY STORE STORE CAPT CHAIR PT 301-450 LBS PWR WC E2361 THE THE ACSS 22NF 2 SCOOTER 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 [place] NONEMERGE A0100 LKLP [facility] NCY 2 COMMUNITY TRANSPORT TRANSPORT ACTION ATION CO ATION; L TAXI COMPREHEN [address] SIVE 1 BARBARA JIMENEZ METABOLIC PANEL MEDICALCE MEDICALCE NTER NTER BLOOD [address] COUNT 1 BARBARA JIMENEZ COMPLETE AUTO&AUTO MEDICALCE MEDICALCE DIFRNTL NTER NTER WBC GROUND A0425 SHAI SHAI MILEAGE 1 CO CO PER AMBULANCE AMBULANCE STATUTE TAXIN TAXIN MILE ECG [address] ST MOHINI ROUTINE 1 BARBARA DEL ECG MED CTR W/LEAST 12 LDS I&R ONLY COLLECTIO [address] N VENOUS 1 BARBARA JIMENEZ BLOOD VENIPUNCT MEDICALCE MEDICALCE URE NTER NTER ECG [address] ROUTINE 1 BARBARA VITALETH ECG W/LEAST MEDICALCE MEDICALCE 12 LDS NTER NTER TRCG ONLY W/O I&R AMB A0427 SHAI SHAI SERVICE 1 CO CO ALS AMBULANCE AMBULANCE EMERGENCY TAXIN TAXIN TRANSPORT LEVEL [address] BLOOD 1 BARBARA BARBARA REAGENT STRIP [place] [address] BLOOD/URI 1 BARBARA BARBARA C ACID MEDICALCE MEDICALCE NTER NTER HEMOGLOBI [address] N 1 BARBARA BARBARA GLYCOSYLA CASSIUS A1C MEDICALCE MEDICALCE NTER NTER BASIC [address] METABOLIC 1 BARBARA BARBARA PANEL CALCIUM MEDICALCE MEDICALCE TOTAL NTER NTER LIPID [address] PANEL 1 BARBARASYMMES [facility]OSPITAL[facility] MEDICALCE MEDICALCE NTER NTER HEPATIC [address] FUNCTION 1 BARBARA BABRARA PANEL MEDICALCE MEDICALCE NTER NTER THERAPEUT [address] IC PX 1/> 1 [facility] E[facility] 15 MIN EXERCISES NONEMERGE A0100 LKLP BENNETTS NCY 1 COMMUNITY TRANSPORT TRANSPORT ACTION ATION CO ATION; L TAXI THERAPEUT [address] IC PX 1/> 1 [facility] 15 MIN EXERCISES NONEMERGE A0100 LKLP BEN[place]TS NCY 1 COMMUNITY TRANSPORT TRANSPORT ACTION ATION CO ATION; L TAXI NONEMERGE A0100 LKLP [place]TS NCY 1 COMMUNITY TRANSPORT TRANSPORT ACTION ATION CO ATION; L TAXI NONEMERGE A0100 LKLP [place] NCY 1 COMMUNITY TRANSPORT TRANSPORT ACTION ATION CO ATION; L TAXI THERAPEUT [address] IC PX 1/> 1 [facility] 15 MIN EXERCISES THERAPEUT [address] IC PX 1/> 0 [facility] 15 MIN EXERCISES NONEMERG A0120 LKLP LKLP TRNSPRT: 0 [facility] ACTION N [facility] AREA/OT SYS NONEMERG A0120 LKLP LKLP TRNSPRT: 0 [facility] ACTION N SDN AREA/OTH SYS THERAPEUT [address] IC PX 1/> 0 [facility] 15 MIN EXERCISES THERAPEUT [address] IC PX 1/> 0 [facility] 15 MIN EXERCISES PHYSICAL [address] THERAPY 0 [facility] N NONEMERG A0120 LK LK TRNSPRT: 0 [facility] ACTION N SDN AREA/OTH SYS NONEMERG A0120 LK LK TRNSPRT: 0 [facility] ACTION N SDN AREA/OTH SYS NONEMERG A0120 LK LK TRNSPRT: 0 [facility] ACTION N SDN AREA/OTH SYS IIV3 [address] VACCINE 0 BARBARA BARBARA SPLIT VIRUS 0.5 PHYSICIAN PHYSICIAN ML S S DOSAGE IM USE HEPATIC [address] FUNCTION 0 BARBARA BARBARA PANEL MEDICALCE MEDICALCE NTER NTER LIPID [address] PANEL 0 BARBARA BARBARA MEDICALCE MEDICALCE NTER NTER BASIC [address] METABOLIC 0 BARBARA BARBARA PANEL CALCIUM MEDICALCE [place] [address] BLOOD/URI 0 BARBARA BARBARA C ACID MEDICALCE MEDICALCE NTER NTER AMB A0427 SHAI SHAI SERVICE 0 CO CO ALS AMBULANCE AMBULANCE EMERGENCY TAXIN TAXIN TRANSPORT LEVEL [address] 0 BARBARA BARBARA STICK/TAB LET RGNT MEDICALCE MEDICALCE NON-AUTO NTER NTER W/[place] [address] MAGNESIUM 0 BARBARA BARBARA MEDICALCE MEDICALCE NTER NTER BASIC [address] METABOLIC 0 BARBARA BARBARA PANEL CALCIUM MEDICALCE MEDICALCE TOTAL NTER NTER BLOOD [address] COUNT 0 BARBARA BARBARA COMPLETE AUTO&AUTO MEDICALCE MEDICALCE DIFRNTL NTER NTER WBC GROUND A0425 SHAI SHAI MILEAGE 0 CO CO PER AMBULANCE AMBULANCE STATUTE TAXIN TAXIN MILE COLLECTIO [address] N VENOUS 0 BARBARA BARBARA BLOOD VENIPUNCT MEDICALCE MEDICALCE URE NTER [facility] [address] ST [place] DISCHARGE 0 BARBARA MIN DAY MANAGEMEN PHYSICIAN T 30 S MIN/< SBSQ 52439 [facility] 0 S CARE/DAY HEALTHCAR 25 E IN MINUTES ELECTROEN 23549 [facility] CEPHALOGR 0 S AM W/REC HEALTHCAR AWAKE&ASL E IN EEP RADIOLOGI 32027 RADIOLOGY YURIDIA C 0 SHARLA EXAMINATI ASSOCIATE ON CHEST S PSC SINGLE VIEW FRONTAL MRI BRAIN 54192 RADIOLOGY ARLINE BRAIN 0 ATT STEM W/O ASSOCIATE W/[place] [address] RADIOLOGY YURIDIA HEAD/BRAI 0 SHARLA N W/O ASSOCIATE CONTRAST S PSC MATERIAL ECG [address] ST TIO MAR ROUTINE 0 BARBARA ECG MED CTR W/LEAST 12 LDS I&R ONLY GROUND A0425 SHAI SHAI MILEAGE 0 CO CO PER AMBULANCE AMBULANCE STATUTE TAXIN TAXIN MILE AMBULANCE A0429 SHAI SHAI SERVICE 0 CO CO BLS AMBULANCE AMBULANCE EMERGENCY TAXIN TAXIN TRANSPORT INITIAL 58346 [facility] 0 S CARE/DAY HEALTHCAR 50 E IN MINUTES ECG [address] ST TIO MAR ROUTINE 0 BARBARA ECG MED CTR W/LEAST 12 LDS I&R ONLY HOSPITAL [address] [facility] DISCHARGE 0 BARBARA AP DAY MANAGEMEN PHYSICIAN T 30 S MIN/< CT SOFT 15005 RADIOLOGY [place] TISSUE 0 NORA NECK ASSOCIATE W/CONTRAS S PSC T MATERIAL ELECTROEN 54924 FIOR GALLARDO TY CEPHALOGR 0 S AM W/REC HEALTHCAR AWAKE&ASL E IN EEP MRA NECK 45459 RADIOLOGY RADIOLOGY W/O 0 &W/CONTRA ASSOCIATE ASSOCIATE ST S PSC S PSC MATERIAL MRI BRAIN 45247 RADIOLOGY SUMAYA BRAIN 0 III ALICIA STEM W/O ASSOCIATE W/CONTRAS S PSC T MATERIAL ECG 09817 [facility] MAR ROUTINE 0 BARBARA ECG MED CTR W/LEAST 12 LDS I&R ONLY INITIAL 33989 [facility] 0 BARBARA AP CARE/DAY 70 PHYSICIAN MINUTES S ECG 87769 [facility] MAR ROUTINE 0 BARBARA ECG MED CTR W/LEAST 12 LDS I&R ONLY GROUND A0425 SHAI SHAI MILEAGE 0 CO CO PER AMBULANCE AMBULANCE STATUTE SERVI SERVI MILE RADIOLOGI 04573 RADIOLOGY RALPH C 0 JAM EXAMINATI ASSOCIATE ON CHEST S PSC SINGLE VIEW FRONTAL AMB A0427 SHAI SHAI SERVICE 0 CO CO ALS AMBULANCE AMBULANCE EMERGENCY SERVI SERVI TRANSPORT LEVEL 1 AMB A0422 SHAI SHAI OXYGEN&O2 0 CO CO SUPPLIES AMBULANCE AMBULANCE LIFE SERVI SERVI SUSTAININ G SITUATION 3D [address] RENDERING 0 [facility] SS SUPERVISI ON [facility] LOWER [address] EXTREMITY 0 [facility] CONTRAST MATERIAL RADEX [address] SHOULDER 0 [facility] MINIMUM [address] C EXAM 0 [facility] COMPLETE 4/MORE VIEWS Encounters Encounter Start End Date Code Location Performer Type Date HOME [address] [facility] 7 7 BARBARA INPATIENT HOME CARE OFFICE 32693 [facility] 7 7 BARBARA T VISIT 15 PHYSICIAN MINUTES S HOME [facility], 7 7 BARBARA INPATIENT HOME CARE EMERGENCY 73632 7 7 BARBARA DEPARTMEN T VISIT [facility] HIGH/URGE E [facility] - 7 7 BARBARA OUTPATIEN T [facility] E EDGE OFFICE 03111 [facility] 7 7 [facility] T VISIT 25 PHYSICIAN MINUTES [facility] [place] [facility] 82104 [facility] 7 7 [facility] T VISIT 25 PHYSICIAN MINUTES S OFFICE 50761 [facility] access hospital 7 7 [facility] T VISIT 15 PHYSICIAN MINUTES S [facility] - 7 7 [facility] OUTPATIEN T HEALTHCAR E EDGE OFFICE 49626 [facility] 7 7 [facility] T VISIT 5 MINUTES HEALTHCAR E EDGE OFFICE 88035 [facility] 7 7 [facility] L T VISIT 25 PHYSICIAN MINUTES S EMERGENCY 00876 [facility] DE[facility] 7 7 EMERGENCY VISIT HIGH PHYSICIAN SEVERITY& S THREAT [facility] EMERGENCY 20997 7 7 [facility] DEPARTMEN T VISIT HEALTHCAR MODERATE E EDGE SEVERITY EMERGENCY 86867 [facility] 7 7 EMERGENCY DEPARTMEN T VISIT PHYSICIAN HIGH/URGE S NT SEVERITY [facility] ST - 7 7 [facility] OUTPATIEN T HEALTHCAR E EDGE OFFICE 88053 [facility] 7 7 [facility] T VISIT 25 PHYSICIAN MINUTES S OFFICE 60523 [facility] T VISIT 25 PHYSICIAN MINUTES [facility] - 7 7 [facility] OUTPATIEN T HEALTHCAR E EDGE OFFICE 02850 [facility] 7 [facility] T VISIT [facility] [address] - 7 7 [facility] - 7 7 [facility] OUTPATIEN T HEALTHCAR E EDGE OFFICE 01483 [facility] 7 [facility] T VISIT 25 PHYSICIAN MINUTES S OFFICE 58714 [facility] 6 6 [facility] TRO T VISIT 15 PHYSICIAN MINUTES [facility] - 6 6 [facility] OUTPATIEN MED CTR T [facility] ST - 6 6 [facility] OUTPATIEN MED CTR T [facility] [place] - 6 6 [facility] OUTPATIEN INC T EMERGENCY 56154 [facility] DEPT 6 6 PHYSICIAN AP VISIT S, [facility] HIGH SEVERITY& THREAT FUNJ EMERGENCY 37175 [place] 6 6 MEM HOS[facility] DEPARTMEN INC T VISIT MODERATE SEVERITY OFFICE 29969 [facility] HEMATOLOG T VISIT Y CARE, [address] - 6 6 [facility] OUTPATIEN [facility] T [facility] ST - 6 6 [facility] OUTPATIEN MED CTR T [facility] 40878 [facility] OUT[facility] 6 6 NECK JAM T VISIT SURGERY 15 ASSOC MINUTES OFFICE 11156 [facility] 6 6 [facility] TRO T VISIT 15 PHYSICIAN MINUTES [facility] - 6 6 [facility] OFF[facility] [address] [facility] OUTPATIEN 6 6 [facility] TRO T VISIT [address] [facility] - 6 6 [facility]EN [facility] OFFICE [address] ST OUTPATIEN 6 6 [facility] T VISIT 5 MED CTR MINUTES [facility] OFFICE 16486 [facility] 6 6 NECK JAM T VISIT SURGERY [address] - 6 6 [facility] [address] [facility] OUTPATIEN 6 6 [facility] TRO T VISIT 25 PHYSICIAN MINUTES [facility] - 6 6 [facility] OUTPATIEN MED CTR T [facility] ST - 6 6 [facility] OUTPATIEN [facility] OFF[facility] 59525 [facility] OUTPAT[facility] 6 6 NECK JAM T VISIT SURGERY 25 ASSOC MINUTES OFFICE [address] [facility] OUTPATIEN 6 6 [facility] T VISIT 25 PHYSICIAN MINUTES [address] OFFICE [address] ST OUTPATIEN 6 6 [facility] T VISIT 5 MED CTR MINUTES [facility] OFFICE 99736 [facility]A OUTPATIEN 6 6 HEMATOLOG T VISIT Y CARE, [address] - 6 6 [facility] OUTPATIEN [facility] T [facility] OFFICE 81665 ONCOL[facility]Y CALLI OUTPATIEN 6 6 HEMATOLOG LAW T VISIT Y CARE, 15 IN MINUTES HOME PERSONAL HEALTH, 5 5 TOUCH OTHER HOME CARE OF HOME PERSONAL HEALTH, 5 5 TOUCH INPATIENT HOME CARE OF OFFICE 29118 [facility] OUTPATIEN 5 5 NECK JAM T VISIT SURGERY 15 ASSOC MINUTES HOME PERSONAL HEALTH, 5 5 TOUCH OTHER HOME CARE OF OFFICE [address] [facility] OUTPATIEN 5 5 [facility] DENIA T VISIT 15 PHYSICIAN MINUTES S [facility] - 5 5 [facility] OUTPATIEN MED CTR T [facility] HOME PERSONAL HEALTH, 5 5 TOUCH OTHER HOME CARE OF OFFICE 50830 ONCOLOGY MORENO PRA OUTPATIEN 5 5 HEMATOLOG T VISIT Y CARE, 25 IN MIN[address] OFF[address] OUTPATIEN 5 5 BARBARA T VISIT 5 MED CTR MINUTES [facility] - 5 5 [facility] OUTPATIEN MED CTR T [facility] HOME PERSONAL HEALTH, 5 5 TOUCH OTHER HOME CARE OF OFFICE 670[address] [facility] OUTPATIEN 5 5 BARBARA DENIA T VISIT 25 PHYSICIAN MINUTES S OFFICE 99809 ONCOLOGY CALLI OUTPATIEN 5 5 HEMATOLOG LAW T VISIT Y CARE, 15 IN MINUTES HOME PERSONAL HEALTH, 5 5 TOUCH OTHER HOME CARE OF HOME PERSONAL HEALTH, 5 5 TOUCH OUTPATIEN HOME CARE T OF HOME PERSONAL HEALTH, 5 5 TOUCH OTHER HOME CARE OF OFFICE 21818 [facility] OUTPATIEN 5 5 NECK JAM T VISIT SURGERY 15 ASSOC MINUTES HOME PERSONAL HEALTH, 5 5 TOUCH OUTPATIEN HOME CARE T OF HOSPITAL ST - 5 5 [facility] OUTPATIEN MED CTR T [facility] HOME PERSONAL HEALTH, 5 5 TOUCH OTHER HOME CARE OF OFFICE [address] [facility] OUTPATIEN 5 5 BARBARA DENIA T VISIT 15 PHYSICIAN MINUTES S HOME PERSONAL HEALTH, 5 5 TOUCH OUTPATIEN HOME CARE T OF OFFICE 89160 ONCOLOGY MORENO PRA OUTPATIEN 5 5 HEMATOLOG T VISIT Y CARE, 25 IN MINUTES OFFICE 58456 ONCOLOGY LUCINDA OUTPATIEN 5 5 HEMATOLOG N ISAIAH T VISIT Y CARE, 15 IN MINUTES HOME PERSONAL HEALTH, 5 5 TOUCH OTHER HOME CARE OF OFFICE [address] [facility] OUTPATIEN 5 5 BARBARA DENIA T VISIT [address] PHYSIC[address] [facility] - 5 5 [facility] OUTPATIEN MED CTR T [facility] HOME PERSONAL HEALTH, 5 5 TOUCH OUTPATIEN HOME CARE T OF OFFICE 54465 ONCOLOGY MORENO PRA OUTPATIEN 5 5 HEMATOLOG T VISIT Y CARE, 25 IN MINUTES HOME PERSONAL HEALTH, 5 5 TOUCH OUTPATIEN HOME CARE T OF HOME PERSONAL HEALTH, 5 5 TOUCH OTHER HOME CARE OF HOME PERSONAL HEALTH, 5 5 TOUCH OTHER HOME CARE OF HOME PERSONAL HEALTH, 5 5 TOUCH OUTPATIEN HOME CARE T OF OFFICE 38735 ONCOLOGY CALLI OUTPATIEN 5 5 HEMATOLOG LAW T VISIT Y CARE, [address] - 5 5 [facility] OUTPATIEN MED CTR T [facility] OFFICE 736[address] [facility] OUTPATIEN 5 5 BARBAR[facility] DENIA T VISIT 25 PHYSICIAN MINUTES S OFFICE 92518 INFECTIOU DEVARAJAN OUTPATIEN 5 5 S DISEASE VID T VISIT 25 CONSULTAN MINUTES OFFICE 54512 ST OUTPATIEN 4 4 [facility]BAR[facility] T VISIT 5 MED CTR MINUTES [facility] - 4 4 [facility] OUTPATIEN MED CTR T [facility] [place] - [facility] 4 [facility] OUTPATIEN INC T OFFICE 89597 INFECTIOU DEVARAJAN OUTPATIEN 4 4 S DISEASE VID T VISIT 25 CONSULTAN MINUTES [facility] ST - 4 4 [facility] OUTPATIEN MED CTR T [facility] PERSONAL HEALTH, 4 4 TOUCH OUTPATIEN HOME CARE T [facility] [place] - 4 4 [facility]EN INC [facility] ST - 4 4 [facility] OUTPATIEN MED CTR T [facility] PERSONAL [facility], 4 4 TOUCH OTHER HOME CARE OF HOME PERSONAL HEALTH, 4 4 TOUCH OUTPATIEN HOME CARE T OF HOSPITAL ST - 4 4 [facility] OUTPATIEN MED CTR T [facility] EMERGENCY 04595 [facility] 4 4 [facility] DEPARTMEN MED CTR T VISIT MODERATE SEVERITY HOME PERSONAL HEALTH, 4 4 TOUCH OUTPATIEN HOME CARE T OF HOSPITAL ST - 4 4 [facility] OUTPATIEN MED CTR T [facility] P[facility], 4 4 TOUCH OUTPATIEN HOME CARE T OF HOME PERSONAL HEALTH, 4 4 TOUCH OUTPATIEN HOME CARE T OF OFFICE [address]2502 [facility] OUTPATIEN 4 4 [place] DENIA T VISIT 25 PHYSICIAN MINUTES S OFFICE 49650 INFECTIOU DEVARAJAN OUTPATIEN 4 4 S DISEASE VID T VISIT 40 CONSULTAN MINUTES OFFICE 91330 [facility] OUT[facility] 4 4 NECK JAM T VISIT SURGERY 10 ASSOC MINUTES OFFICE 21342 [facility] OUTPATIEN 4 4 NECK JAM T VISIT SURGERY 15 ASSOC MINUTES OFFICE 78667 ONCOLOGY CALLI OUTPATIEN 4 4 HEMATOLOG LAW T VISIT Y CARE, [address] - 4 4 [facility] OUTPATIEN MED CTR T [facility] ST - 4 4 [facility] OUTPATIEN MED CTR T [facility] ST - 4 4 [facility] INPATIENT MED CTR [facility] OFFICE 18264 [facility] CONSULTAT 4 4 BARBARA ION NEW/ESTAB PHYSICIAN PATIENT S 60 MIN EMERGENCY 46869 [facility] DEPT 4 4 BARBARA MICAH VISIT MED CTR HIGH SEVERITY& THREAT FUNCJ OFFICE 42187 ONCOLOGY POLI CHR OUTPATIEN 4 4 HEMATOLOG T VISIT Y CARE, [address] - 4 4 [facility] OUTPATIEN MED CTR T [facility] OFFICE 06146 ONCOLOGY POLI CHR OUTPATIEN 4 4 HEMATOLOG T VISIT Y CARE, 25 IN MINUTES OFFICE 88619 ONCOLOGY CALLI OUTPATIEN 4 4 HEMATOLOG LAW T VISIT Y CARE, [address] - 4 4 [facility] OUTPATIEN MED CTR T [facility] 4 4 POINT - [facility] - 4 4 [facility] OUTPATIEN MED CTR T [facility] OFFICE [address] ST OUTPATIEN 4 4 BARBARA T VISIT 5 MED CTR MINUTES [facility] 4 4 POINT - OTHER [facility] - 4 4 [facility] INPATIENT [facility] PERSONAL HEALTH, 4 4 TOUCH OTHER HOME CARE OF HOSPITAL ST - 4 4 [facility] OUTPATIEN MED CTR T [facility] - 4 4 [facility]A OUTPATIEN FT T CHEMO HOME PERSONAL HEALTH, 4 4 TOUCH OUTPATIEN HOME CARE T OF OFFICE 67320 [facility] 4 4 NECK JAM ION SURGERY NEW/ESTAB ASSOC PATIENT 80 MIN OFFICE 96878 [facility] OUTPATIEN 4 4 BARBAR[place] DENIA T VISIT 25 PHYSICIAN MINUTES S [facility] [place] - 4 4 [facility] OUTPATIEN INC [place]Y [address] [place] 4 4 [facility] DEPARTMEN INC T VISIT LOW/MODER SEVERITY EMERGENCY 52810 [facility] 4 4 CHERIE DEPARTMEN EMERGENCY T VISIT PHYS MODERATE SEVERITY HOME PERSONAL HEALTH, 4 4 TOUCH OUTPATIEN HOME CARE T OF HOME PERSONAL HEALTH, 4 4 TOUCH OTHER HOME CARE OF HOME PERSONAL HEALTH, 4 4 TOUCH OTHER HOME CARE OF HOSPITAL ST - 4 4 [facility] OUTPATIEN MED CTR T [facility] [address] [facility] 4 4 BARBARA AP E MED EST PATIENT PHYSICIAN 40-64YRS S HOME PERSONAL HEALTH, 4 4 TOUCH OTHER HOME CARE OF HOME PERSONAL HEALTH, 4 4 TOUCH OUTPATIEN HOME CARE T OF HOME PERSONAL HEALTH, 4 4 TOUCH OTHER HOME CARE OF HOSPITAL ST - 4 4 [facility] OUTPATIEN MED CTR T [facility] HOME PERSONAL HEALTH, 4 4 TOUCH OTHER HOME CARE OF HOME PERSONAL HEALTH, 3 3 TOUCH OTHER HOME CARE OF OFFICE 09064 ST OUTPATIEN 3 3 BARBARA T VISIT 5 MED CTR MINUTES [facility] - 3 3 [facility] OUTPATIEN MED CTR T [facility]ICE [address] [facility] OUTPATIEN 3 3 BARBRAA T VISIT MED CTR [address] - 3 3 [facility]A OUTPATIEN MED CTR T [facility] HOME PERSONAL HEALTH, 3 3 TOUCH OUTPATIEN HOME CARE T OF HOME PERSONAL HEALTH, 3 3 TOUCH OTHER HOME CARE OF HOME PERSONAL HEALTH, 3 3 TOUCH OUTPATIEN HOME CARE T OF HOSPITAL ST - 3 3 [facility] OUTPATIEN [facility]ICAL T CENTER HOME PERSONAL HEALTH, 3 3 TOUCH OTHER HOME CARE OF OFFICE [address] [facility] PAT CONSULTAT 3 3 BARBARA ION MED CTR NEW/ESTAB PATIENT 60 MIN OFFICE 35576 [facility] TY CONSULTAT 3 3 BARBARA ION NEW/ESTAB PHYSICIAN PATIENT S 60 MIN HOME PERSONAL HEALTH, 3 3 TOUCH OTHER HOME CARE OF HOME PERSONAL HEALTH, 3 3 TOUCH OUTPATIEN HOME CARE T OF HOME PERSONAL HEALTH, 3 3 TOUCH OTHER HOME CARE OF OFFICE [address] [facility] OUTPATIEN 3 3 BARBARA AP T VISIT 25 PHYSICIAN MINUTES S HOME PERSONAL HEALTH, 3 3 TOUCH OTHER HOME CARE OF EMERGENCY 65297 ST [facility] 3 3 [facility] CANDE DEPARTMEN MED CTR T VISIT MODERATE SEVERITY EMERGENCY 61130 ST [facility] DEPT 3 3 BARBARA CANDE [...] 2 TOUCH OTHER HOME CARE OF OFFICE 75958 [facility] 2 2 BARBARA DE SOUZA T VISIT [address] [facility] - 2 2 [facility] HOME PERSONAL HEALTH, 2 2 TOUCH OTHER HOME CARE OF HOME PERSONAL HEALTH, 2 2 TOUCH OTHER HOME CARE OF HOME PERSONAL HEALTH, 2 2 TOUCH OTHER HOME CARE OF HOME PERSONAL HEALTH, 2 2 TOUCH OTHER HOME CARE OF HOME PERSONAL HEALTH, 2 2 TOUCH OTHER HOME CARE OF [facility] ST - 2 2 [facility] PERSONAL HEALTH, 2 2 TOUCH OTHER HOME [facility] [address] [place] [facility] HOME PERSONAL HEALTH, 2 2 TOUCH OTHER HOME CARE OF HOME PERSONAL HEALTH, 2 2 TOUCH OTHER HOME CARE OF HOME PERSONAL HEALTH, 1 1 TOUCH OTHER HOME CARE OF OFFICE 20130 [facility] 1 2 BARBARA AP T VISIT 15 PHYSICIAN MINUTES S OFFICE 41928 [facility] 1 2 BARBARA AP T VISIT 25 PHYSICIAN MINUTES S EMERGENCY [address] [facility] N GUY DEPARTMEN MED CTR T VISIT HIGH/URGE NT SEVERITY EMERGENCY 88669 ST 1 1 BARBARA DEPARTMEN T VISIT MEDICALCE MODERATE NTER SEVERITY [facility]OSPITAL ST - 1 1 [facility] OUTPATIEN T MEDICALCE NTER HOME PERSONAL HEALTH, 1 1 TOUCH OTHER HOME CARE OF OFFICE 99696 [facility] 1 1 BARBARA AP T VISIT 25 [...] CARE OF [facility] ST - [facility], 1 1 TOUCH OTHER HOME CARE OF OFFICE 14672 [facility] 1 1 BARBARA MIN T VISIT [address] [facility] - 1 1 [facility] T HOME PERSONAL HEALTH, 1 1 TOUCH OTHER HOME CARE OF OFFICE 21686 [facility] 1 1 BARBARA MIN T VISIT [address] [facility] - 1 1 [facility] T HOME PERSONAL HEALTH, 1 1 TOUCH OTHER HOME CARE [facility] 47285 FIOR GALLARDO [facility] 0 0 S T VISIT HEALTHCAR 25 E IN MINUTES HOME PERSONAL HEALTH, 0 0 TOUCH OTHER HOME CARE OF OFFICE 10016 [facility] 0 0 BARBARA MIN T VISIT 25 PHYSICIAN MINUTES S [facility] ST - 0 0 [facility]BARA OUTPATIEN T MEDICALCE NTER HOME PERSONAL HEALTH, 0 0 TOUCH OTHER HOME CARE OF HOME PERSONAL HEALTH, 0 0 TOUCH OTHER HOME CARE OF EMERGENCY 42609 ST 0 0 BARBARA DEPARTMEN T VISIT MEDICALCE HIGH/URGE NTER NT SEVERITY [facility] ST - 0 0 [facility] OUTPATIEN T MEDICALCE NTER HOME PERSONAL HEALTH, 0 0 TOUCH OTHER HOME CARE OF H[facility]PITAL ST - 0 0 [facility] INPATIENT MEDICALCE NTER [facility]ERGENCY 25223 [facility]A AP VISIT MED CTR HIGH SEVERITY& THREAT FUNCJ OFFICE 21733 [facility] 0 0 NECK ION SURGERY NEW/ESTAB ASSOC PATIENT 40 MIN OFFICE 53440 [facility] 0 0 BARBARA MIN T VISIT 25 PHYSICIAN MINUTES S EMERGENCY 75105 [facility] 0 0 BAR[facility]A PAT VISIT MED CTR HIGH [facility]VERITY& THREAT [facility] ST - 0 0 [facility] - 0 0 [facility]
--- OUTSIDE RECORDS SUMMARY | 2017-02-02 04:47 | External Medical Summary Rpt | CCD ---
Author Author , KITTY Organization KITTY Address Unknown Phone [email or web address] Care Team Providers Care Hooker On Name Role Phone [employer] Unavailable Unavailable INC, [employer] Unavailable Unavailable INC, [employer] [facility], Unavailable Unavailable [facility] ELROY, ELROY Unavailable Unavailable ELROY TRO, Unavailable Unavailable ELROY TRO BATTA BROWN, BATTA BROWN Unavailable Unavailable [facility] Unavailable [facility] BIRRER PAT, BIRRER Unavailable Unavailable PAT PARNELL ALL, PARNELL ALL Unavailable Unavailable AGUAYO NORA, AGUAYO NORA Unavailable Unavailable SUMAYA III ALICIA, Unavailable Unavailable SUMAYA III ALICIA BRANDSER GUY, Unavailable Unavailable BRANDSER GUY CALLI, CALLI Unavailable Unavailable CALLI LAW, CALLI [...] Unavailable YURIDIA SHARLA, Unavailable Unavailable YURIDIA SHARLA [facility] Unavailable Unavailable BEHAVIORAL, [facility] DEVARAJAN VID, Unavailable Unavailable DEVARAJAN VID DAVILA WANDA, DAVILA WANDA Unavailable Unavailable DOERGER, DOERGER Unavailable Unavailable DOERGER KIR, DOERGER Unavailable Unavailable KIR DOMET AP, DOMET AP Unavailable Unavailable [facility], Unavailable Unavailable [facility] LANE JAM, LANE JAM Unavailable Unavailable [facility] Unavailable Unavailable CENTER, [facility] MINDA JANNA, MINDA Unavailable Unavailable JANNA FERTIKH VINCENT, FERTIKH Unavailable Unavailable VINCENT EUGENIA MICAH, EUGENIA MICAH Unavailable Unavailable EUGENIA JEFF, EUGENIA JEFF Unavailable Unavailable SABRINA AP, SABRINA Unavailable Unavailable AP JACY CANDE, JACY Unavailable Unavailable CANDE JETER MEGAN, JETER MEGAN Unavailable Unavailable [facility] Unavailable Unavailable INC, [facility] Unavailable Unavailable [facility], [facility] Unavailable Unavailable [place], [facility] [place] [facility], Unavailable Unavailable [facility], Unavailable Unavailable [facility] [...] Unavailable [facility] J[facility], Unavailable Unavailable [facility] KERRI CHR, KERRI Unavailable Unavailable [facility] Unavailable Unavailable [facility], [facility] Unavailable Unavailable CARE, [facility] KERMAN ISAIAH, KERMAN Unavailable Unavailable ISAIAH CHELITA GIA, CHELITA GIA Unavailable Unavailable FRIAS, FRIAS Unavailable Unavailable [facility] Unavailable Unavailable 9, [facility] 9 [facility] Unavailable Unavailable ACTION_I, [facility] ACTION_I [facility] N, Unavailable Unavailable [facility] N LUBBERS MARJ, LUBBERS Unavailable [...] MILES PAT, MILES PAT Unavailable Unavailable BUNCH THE, BUNCH Unavailable Unavailable THE ARGENTINA NORA, ARGENTINA Unavailable Unavailable NORA TONY [...] Unavailable [facility] Unavailable Unavailable OF NOTH, [facility] Unavailable Unavailable [facility], [facility] CEJA GUY, Unavailable Unavailable CEJA GUY [facility] Unavailable Unavailable IN, [facility] ROEBKER JAM, ROEBKER Unavailable Unavailable JAM DARYL MAR, DARYL Unavailable Unavailable MAR BLAIR ZAH, BLAIR ZAH Unavailable Unavailable ROSS GUR, ROSS Unavailable Unavailable GUR POLI CHR, POLI CHR Unavailable Unavailable SCHACK DENIA, SCHACK Unavailable Unavailable DENIA ROCK AP, ROCK Unavailable Unavailable AP RALPH GAR, RALPH Unavailable Unavailable GAR RALPH JAM, RALPH Unavailable Unavailable RACQUEL SCHUSSLER, SCHUSSLER Unavailable Unavailable ANKUR GAR, ANKUR Unavailable Unavailable GAR MORENO PRA, MORENO PRA Unavailable Unavailable QUIROZ BARNEY, QUIROZ BARNEY Unavailable Unavailable [facility] Unavailable Unavailable CHEMO, [facility] Unavailable Unavailable [facility], [facility] Unavailable Unavailable CARE, [facility] Unavailable [facility]available [facility], [facility], Unavailable Unavailable [facility] Unavailable Unavailable 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 , [facility] Unavailable Unavailable BLOOMERY, [facility] Unavailable Unavailable MEDICAL[facility]ENTER, [facility] Unavailable Unavailable PHYSICIANS, [facility] Unavailable Unavailable PHYSICIANS EKG, [facility] Unavailable Unavailable PH[facility]ICIANS END, [facility] Unavailable Unavailable [facility] END, [facility] STEINKAMP NORA, Unavailable Unavailable STEINKAMP NORA [facility], Unavailable Unavailable [facility], Unavailable Unavailable [facility], Unavailable Unavailable [facility] Unavailable Unavailable #5, [facility] ROBLES, Unavailable Unavailable [facility] VEAZEY AP, VEAZEY Unavailable Unavailable AP WHATLEY, WHATLEY Unavailable Unavailable WELLS NATALIA, [facility]LL[facility] NATALIA Unavailable Unavailable WELLS SEA, WELLS SEA Unavailable Unavailable JAJA, JAJA Unavailable Unavailable MERRY ISAIAH, Unavailable Unavailable WINQUITAMANN ISAIAH GRAY, GRAY Unavailable Unavailable WYROBINSON JR, WYENANDT Unavailable Unavailable JR MONIKA ANT, Unavailable Unavailable MONIKA ANT Purpose Continuity of Care Document - 09-28-2009 through 2016 Problems Code Diagnosis DOS Provider Status [id number] LOC-REL SX 11-08-2016 EPILEPSY [facility] W/SPS NOT HOME CARE INTRACT W/O SE I10 ESSENTIAL 11-08-2016 PRIMARY [facility] HYPERTENSIO HOME CARE N B32489 HEMIPLEGIA 11-08-2016 FLW [facility] CEREBRAL HOME CARE INFARCT AFF LT NON-DOM M00441 DYSPHAGIA 11-08-2016 FOLLOWING [facility] CERE[facility]AL [facility] C[facility] INFARCTION I739 PERIPHERAL 11-08-2016 VASCULAR [facility] DISEASE HOME CARE UNSPECIFIED R1312 DYSPHAGIA 11-08-2016 OROPHARYNGE [facility] AL PHASE HOME CARE [id number] PERSONAL 11-08-2016 HISTORY OF [facility] NICOTINE HOME [...] ATTENTION PHYSICIANS TO GASTROSTOMY C140 MALIGNANT 10-04-2016 ST NEOPLASM OF [facility]X [facility] UNSPECIFIED EDGE K9423 GASTROSTOMY 10-04-2016 ST [facility] MALFUNCTION HEALTHCARE EDGE M109 GOUT 10-04-2016 ST UNSPECIFIED [facility] PHYSICIANS R1310 DYSPHAGIA 10-04-2016 ST UNSPECIFIED [facility] PHYSICIANS R52 PAIN 10-04-2016 [facility] UNSPECIFIED CO AMBULANCE TAXIN R531 WEAKNESS 10-04-2016 [facility] CO AMBULANCE TAXIN H57368G OTH MECH 10-04-2016 ST COMP OTH GI [facility] PROS [facility] IMPL GFT EDGE INIT ENC Z439 ENCOUNTER 10-04-2016 [facility] FOR CO ATTENTION AMBULANCE UNS TAXIN ARTIFICIAL OPENING Z743 NEED FOR 10-04-2016 [facility] CONTINUOUS CO SUPERVISION AMBULANCE TAXIN K9422 GASTROSTOMY 09-12-2016 ST INFECTION [facility] PHYSICIANS U11332 CELLULITIS 09-12-2016 ST OF TRUNK [facility] UNSPECIFIED PHYSICIANS G4733 OBSTRUCTIVE 08-31-2016 PATIENT SLEEP AIDS INC [facility] ADULT PEDIATRIC M5116 INTERVERTEB 08-15-2016 [facility] D/O C CENTER W/RADICULOP ATHY LUMB RGN M9901 SEGMENTAL & 08-15-2016 [facility] DYSFUNCTION C CENTER CERVICAL REGION M9902 SEGMENTAL & 08-15-2016 [facility] DYSFUNCTION C CENTER THORACIC REGION V48296 OTHER 08-09-2016 [facility] [facility] [place] [facility] INFARCTION R262 DIFFICULTY 08-09-2016 [facility] WALKING [place] [facility] ELSEWHERE CLASSIFIED Z4689 ENCOUNTER 08-09-2016 [facility] [facility] [place] [facility] OTH SPEC DEVICES Z993 DEPENDENCE 08-09-2016 [facility] WHE[place]IR [place] [facility] M170 BILATERAL 07-28-2016 ST PRIMARY [facility] OSTEOARTHRI PHYSICIANS TIS OF KNEE Z6835 BODY MASS 07-28-2016 ST INDEX BMI [facility] 35.0-35.9 PHYSICIANS ADULT B9689 OTH SPEC 07-15-2016 ST BACTERIAL [facility] AGNT CAUSE PHYSICIANS DZ CLASSIFIED ELSW J0190 ACUTE 07-15-2016 ST SINUSITIS [facility] UNSPECIFIED PHYSICIANS K219 GASTRO-ESOP 07-15-2016 ST H REFLUX [facility] DISEASE PHYSICIANS WITHOUT ESOPHAGITIS R05 COUGH 07-15-2016 ST [facility] PHYSICIANS R110 NAUSEA 07-15-2016 ST [facility] PHYSICIANS R509 FEVER 07-15-2016 UNSPECIFIED [facility] PHYSICIANS Z6834 BODY MASS 07-15-2016 INDEX BMI [facility] [facility] 34.0-34.9 PHYSICIANS ADULT E785 HYPERLIPIDE 07-11-2016 JULIANE [facility] UNSPECIFIED HEALTHCARE EDGE I951 ORTHOSTATIC 07-11-2016 [facility] HYPOTENSION MED CTR I9589 OTHER 07-11-2016 HYPOTENSION [facility] PHYSICIANS I959 HYPOTENSION 07-11-2016 [facility] UNSPECIFIED OF NOTH M1990 UNSPECIFIED 07-11-2016 [facility] OSTEOARTHRI MED CTR TIS UNSPECIFIED SITE R000 TACHYCARDIA 07-11-2016 [facility] UNSPECIFIED PHYSICIANS R12 HEARTBURN 07-11-2016 [facility] ED[facility] R7302 IMPAIRED 07-11-2016 GLUCOSE [facility] ORAL EDGE Z08 ENCOUNTER 07-11-2016 ST F/U EXAM [facility] AFTER CMPL PHYSICIANS [place] MALIG NEOPLASM I03051 PERSONAL HX 07-11-2016 MAL SADIE [facility] OTH [...] CTR THAN MALIG NEOPLSM E039 HYPOTHYROID 05-09-2016 ISM [facility] UNSPECIFIED HEALTHCARE EDGE E669 OBESITY 05-09-2016 UNSPECIFIED [facility]CARE ED[facility] R1314 DYSPHAGIA 05-09-2016 [facility] PHASE [facility] G90700R UNS FB RESP 04-19-2016 ST TRACT PART [facility] UNS CAUS PHYSICIANS OTH INJ INT ENC C760 MALIGNANT 03-29-2016 RADIOLOGY NEOPLASM OF ASSOCIATES HEAD FACE OF NOTH AND NECK I517 CARDIOMEGAL 03-29-2016 Y [facility] MED CTR 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 ST Z7982 SKILLED NURSING 03-29-2016 ST CURRENT USE [facility] OF ASPIRIN MED CTR 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 ST K05000 OTHER LONG 03-29-2016 ST TERM [facility] CURRENT MED CTR 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 DRUG ST THERAPY R2689 OTHER 03-23-2016 [facility] ABNORMALITI CO ES OF GAIT AMBULANCE AND TAXIN MOBILITY T24703 FACIAL 03-23-2016 [facility] WEAKNESS CO AMBULANCE TAXIN R413 OTHER 03-23-2016 [facility] R4182 ALTERED 03-23-2016 [place] [facility] STATUS [facility] ASS UNSPECIFIED R42 DIZZINESS 03-23-2016 [facility] AND CO GIDDINESS AMBULANCE TAXIN R569 UNSPECIFIED 03-23-2016 MICHELLE PHYSICIANS, CONVULSIONS [facility] M179 OSTEOARTHRI 02-23-2016 PATIENT TIS OF KNEE AIDS INC UNSPECIFIED C024 MALIGNANT 02-09-2016 HEAD & NECK NEOPLASM OF SURGERY LINGUAL ASSOC TONSIL R490 DYSPHONIA 02-09-2016 HEAD & NECK SURGERY ASSOC R682 DRY MOUTH 02-09-2016 HEAD & NECK UNSPECIFIED SURGERY ASSOC F81601 CELLULITIS 01-19-2016 ST OF BUTTOCK [facility] PHYSICIANS Z23 ENCOUNTER 01-19-2016 ST FOR [facility] IMMUNIZATIO PHYSICIANS N Z6838 BODY MASS 01-19-2016 ST INDEX BMI [facility] 38.0-38.9 PHYSICIANS ADULT E780 PURE 11-06-2015 ST HYPERCHOLES [facility] TEROLEMIA PHYSICIANS M1711 UNILATERAL 11-06-2015 ST PRIMARY [facility] OSTEOARTHRI PHYSICIANS TIS RIGHT KNEE H905 UNSPECIFIED 10-20-2015 [facility] SENSORINEUR MED CTR 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 AL HEARING ST LOSS K117 DISTURBANCE 10-20-2015 ST S OF [facility] SALIVARY MED CTR 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 SECRETION ST J384 EDEMA OF 08-07-2015 HEAD & NECK LARYNX SURGERY ASSOC J50647 ENCOUNTER 08-04-2015 ST FOR OTHER [facility] PREPROCEDUR MED CTR AL EXAMINATION G8110 SPASTIC 08-03-2015 ST HEMIPLEGIA [facility] AFFECTING PHYSICIANS UNSPECIFIED SIDE R1319 OTHER 07-13-2015 ST DYSPHAGIA [facility] MED CTR 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 ST I313 PERICARDIAL 07-10-2015 ST EFFUSION [facility] NONINFLAMMA MED CTR 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 TORY ST J3800 PARALYSIS 07-10-2015 ST OF VOCAL [facility] CORDS AND MED CTR 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 LARYNX ST UNSPECIFIED J90 PLEURAL 07-10-2015 RADIOLOGY EFFUSION ASSOCIATES NOT OF NOT ELSEWHERE CLASSIFIED S84972 PERSONAL HX 07-10-2015 ST MAL SADIE [facility] UNS SITE MED CTR 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 LIP ORL ST CAV&PHARYNX C099 MALIGNANT 06-30-2015 HEAD & NECK NEOPLASM OF SURGERY TONSIL ASSOC UNSPECIFIED H903 SENSORINEUR 06-30-2015 HEAD & NECK AL HEARING SURGERY LOSS ASSOC BILATERAL H9319 TINNITUS 06-30-2015 HEAD & NECK UNSPECIFIED SURGERY EAR ASSOC I6990 UNS 02-28-2015 PERSONAL SEQUELAE TOUCH HOME UNSPECIFIED CARE OF CEREBROVASC ULAR DISEASE R32 UNSPECIFIED 02-28-2015 PERSONAL URINARY TOUCH HOME INCONTINENC CARE OF E G80962 REGULAR 02-23-2015 WICHO SHERMAN, OD, BILATERAL PSC H6123 IMPACTED 02-05-2015 HEAD & NECK CERUMEN SURGERY BILATERAL ASSOC Z430 ENCOUNTER 02-05-2015 HEAD & NECK FOR SURGERY ATTENTION ASSOC TO TRACHEOSTOM Y 2749 GOUT, 01-09-[address] ST UNSPECIFIED [facility] PHYSICIANS 82816 UNSPECIFIED 01-09-2015 ST ACUTE [facility] CONJUNCTIVI PHYSICIANS TIS 89173 01-09-2015 L[facility] CAC INC REGION 9 9349 FOREIGN 01-09-2015 ST BODY IN [facility] RESPIRATORY PHYSICIANS TREE UNSPECIFIED 2114 BENIGN 01-07-2015 ST NEOPLASM OF [facility] RECTUM AND MED CTR 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 ANAL CANAL ST 5690 ANAL AND 01-07-2015 ST. RECTAL [facility] POLYP PHYSICIANS END V1002 PERS HX MAL 01-07-2015 ST NEOPLSM [facility] OTH&UNS MED CTR 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 PART ORL ST CAV&PHARYNX V7651 SPECIAL 01-07-2015 ST. SCREENING [facility] FOR PHYSICIANS MALIGNANT END NEOPLASMS COLON 4389 UNSPEC LATE 12-27-2014 PERSONAL EFF TOUCH HOME CEREBRVASC [place] [address]782 UNSPECIFIED 12-27-2014 PERSONAL URINARY TOUCH HOME INCONTINENC CARE OF E 1416 MALIGNANT 12-19-2014 ST NEOPLASM OF [facility] LINGUAL MED CTR 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 TONSIL ST 1619 MALIGNANT 12-19-2014 ONCOLOGY NEOPLASM OF HEMATOLOGY LARYNX CARE, IN UNSPECIFIED SITE V6759 OTHER 12-19-2014 ST FOLLOW-UP [facility] EXAMINATION MED CTR 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 OTHER ST 60794 OCCLUSION&S 11-10-2014 ST TENOSIS [facility] VERTEBRAL PHYSICIANS ARTERY W/INFARCT 7295 PAIN IN 11-10-2014 ST SOFT [facility] TISSUES OF PHYSICIANS LIMB 7871 HEARTBURN 11-10-2014 ST [facility] PHYSICIANS 4618 OTHER ACUTE 09-09-2014 HEAD & NECK SINUSITIS SURGERY ASSOC V672 CHEMOTHERAP 09-09-2014 HEAD & NECK Y FOLLOW-UP SURGERY ASSOC EXAMINATION 1460 MALIGNANT 09-01-2014 ST NEOPLASM OF [facility] TONSIL MED CTR 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 ST 77352 OSTEOARTHRO 09-01-2014 ST SIS UNSPEC [facility] WHETHER MED CTR 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 GEN/LOC ST ANK&FOOT 48453 OBSTRUCTIVE 08-11-2014 PATIENT SLEEP AIDS INC APNEA 18091 LOSS OF 08-05-2014 [place] [address] UNSPEC 07-03-2014 ST HEMIPLEGIA [facility] AFFECTING PHYSICIANS UNSPEC SIDE 12988 ATAXIA 07-03-2014 ST LATE EFFECT [facility] OF PHYSICIANS CEREBROVASC ULAR DISEASE 4400 ATHEROSCLER 06-24-2014 ST OSIS OF [facility] AORTA MED CTR 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 ST 5920 CALCULUS OF 06-24-2014 ST KIDNEY [facility] MED CTR 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 [facility] [address]7490 UNSPECIFIED 05-02-2014 ST CEREBRAL [facility] ARTERY PHYSICIANS OCCLUSION W/INFARCT 82101 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 STAPH CONSULTAN AUREUS SEPTICEMIA 7907 BACTEREMIA 04-28-2014 INFECTIOUS DISEASE CONSULTAN V153 PERS HX 03-28-2014 ST IRRADIATION [facility] PRESENTING MED CTR 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 HAZARDS ST HEALTH V5411 AFTERCARE 03-26-2014 [facility] MEDICAL TRAUMATIC IMAGING ASS FRACTURE UPPER ARM V7260 LABORATORY 03-24-2014 ST EXAMINATION [facility] MED [facility] 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 UNSPECIFIED ST 94598 OTHER LATE 03-15-2014 PERSONAL EFFECTS OF TOUCH HOME CEREBROVASC CARE OF ULAR DISEASE V441 GASTROSTOMY 03-15-2014 [place] [address] CLOSED 03-14-2014 [place] FRACTURE OF [facility] UNSPECIFIED PART OF HUMERUS 54460 CLOSED 03-14-2014 [facility] FRACTURE OF PHYSICIANS SHAFT OF GROUP HUMERUS 1490 MALIGNANT 03-13-2014 RADIOLOGY NEOPLASM OF ASSOCIATES PHARYNX OF [facility] UNSPECIFIED 1991 OTHER 03-13-2014 ST MALIGNANT [facility] NEOPLASM OF MED CTR 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 ST UNSPECIFIED SITE 4730 CHRONIC 03-13-2014 ST MAXILLARY [facility] SINUSITIS MED CTR 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 ST 7856 ENLARGEMENT 03-13-2014 ST OF LYMPH [facility] NODES MED CTR 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 [facility] [address]23 GENERALIZED 03-07-2014 ST PAIN [facility] 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 ST 18568 CLOSED 03-07-2014 ST FRACTURE [facility] UNSPEC PART MED CTR 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 UPPER END ST HUMERUS 14028 CLOSED 03-07-2014 RADIOLOGY FRACTURE OF ASSOCIATES SURGICAL OF [facility] NECK OF HUMERUS 20975 OTHER 03-07-2014 ADVANCED CLOSED TECHNOLOGIE FRACTURES S INC OF UPPER END OF HUMERUS 34091 LEUKOCYTOPE 02-25-2014 ST CHIVO [facility] UNSPECIFIED PHYSICIANS 3670 HYPERMETROP 02-20-2014 WICHO SHERMAN, OD, PSC 62248 VITREOUS 02-20-2014 WICHO SHERMAN, OD, N PSC 78651 VOMITING 02-18-2014 ST ALONE [facility] PHYSICIANS 2449 UNSPECIFIED 02-12-2014 JIBRINI MHA HYPOTHYROID ISM 93021 OTHER 02-12-2014 JIBRINI MHA CONVULSIONS V440 TRACHEOSTOM 02-12-2014 JIBRINI MHA Y STATUS 67137 FEVER 02-05-2014 JIBRINI MHA UNSPECIFIED V580 RADIOTHERAP 01-23-2014 ST Y [facility] MED CTR 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 ST V5811 ENCOUNTER 01-23-2014 ST FOR [facility] ANTINEOPLAS MED CTR 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 TIC ST CHEMOTHERAP Y V5869 LONG-TERM 01-23-2014 ST (CURRENT) [facility] USE OF MED CTR 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 OTHER ST MEDICATIONS 7850 UNSPECIFIED 01-22-2014 JIBRINI MHA TACHYCARDIA 69120 NAUSEA WITH 01-22-2014 JIBRINI MHA VOMITING 87153 ABDOMINAL 01-22-2014 JIBRINI MHA PAIN, UNSPECIFIED SITE 4019 UNSPECIFIED 01-15-2014 JIBRINI MHA ESSENTIAL HYPERTENSIO N 2761 HYPOSMOLALI 01-07-2014 ST TY AND/OR [facility] HYPONATREMI PHYSICIANS A 29685 CHEST PAIN 01-07-2014 ST UNSPECIFIED [facility] PHYSICIANS 1950 MALIGNANT 01-03-2014 ONCOLOGY NEOPLASM OF HEMATOLOGY HEAD FACE CARE, IN AND NECK 27966 NEUTROPENIA 01-03-2014 ST [facility] UNSPECIFIED PHYSICIANS 2859 UNSPECIFIED 12-30-2013 [place] [address] DRUG 12-29-2013 ST INDUCED [facility] NEUTROPENIA MED CTR 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 ST 4589 UNSPECIFIED 12-29-2013 ST [facility] HYPOTENSION MED CTR 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 ST 18575 DYSPLASIA 12-29-2013 ST OF ANUS [facility] PHYSICIANS 19184 OTHER 12-27-2013 RADIOLOGY NONSPECIFIC ASSOCIATES ABNORMAL OF [facility] FINDING OF LUNG FIELD 22104 DEHYDRATION 12-13-2013 ONCOLOGY HEMATOLOGY CARE, IN 5277 DISTURBANCE 12-13-2013 ONCOLOGY OF HEMATOLOGY SALIVARY CARE, IN SECRETION V5881 FITTING AND 12-04-2013 RADI[facility] ADJUSTMENT ASSOCIATES OF OF [facility] VASCULAR CATHETER 4660 ACUTE 11-22-2013 [facility] BRONCHITIS [facility] & REHABILI 7197 DIFFICULTY 11-22-2013 [facility] IN WALKING POINT CARE & REHABILI 55823 MUSCLE 11-22-2013 [facility] WEAKNESS POINT CARE (GENERALIZE & REHABILI D) 80569 DYSPHAGIA 11-22-2013 [facility] UNSPECIFIED POINT CARE & REHABILI V550 ATTENTION 11-22-2013 [facility] TO POINT CARE TRACHEOSTOM & REHABILI Y V551 ATTENTION 11-22-2013 [facility] TO POINT CARE GASTROSTOMY & REHABILI V5789 OTHER 11-22-2013 [facility] SPECIFIED POINT CARE REHABILITAT & REHABILI ION PROCEDURE OTHER 92883 UNSPECIFIED 11-04-2013 JIBRINI MHA CONSTIPATIO N 45792 UNSPECIFIED 11-01-2013 INDEPENDENT DENTAL CARIES ANESTHESIOL OGIST 1471 MALIGNANT 10-31-2013 RADIOLOGY NEOPLASM ASSOCIATES POSTERIOR OF NOT WALL NASOPHARYNX 2390 NEOPLASM 10-31-2013 RADIOLOGY UNSPECIFIED ASSOCIATES NATURE OF [facility] DIGESTIVE SYSTEM V5882 ENCOUNTER 10-31-2013 RADIOLOGY FITTING&ADJ ASSOCIATES OF [facility] NON-VASCULA R CATHETER NEC 2639 UNSPECIFIED 10-29-2013 INDEPENDENT PROTEIN-LESLIE ANESTHESIOL ORIE OGIST MALNUTRITIO N 7833 FEEDING 10-29-2013 ST ROYALIE [facility] S AND PHYSICIANS MISMANAGEME NT 7842 SWELLING 10-29-2013 ST MASS OR [facility] LUMP IN PHYSICIANS HEAD AND NECK 65613 HYPOXEMIA 10-29-2013 ST [facility] PHYSICIANS 7991 RESPIRATORY 10-28-2013 HEAD & NECK ARREST SURGERY ASSOC 92121 LOC-REL 10-22-2013 ST EPILEPSY & [facility] ES W/SPS FT CHEMO W/O INTRACTABL EPIL 35427 HYPERTROPHY 10-22-2013 INDEPENDENT OF TONSILS ALONE ANESTHESIOL OGIST V1254 PERSONAL HX 10-22-2013 ST TIA & CI [facility] W/O FT CHEMO RESIDUAL DEFICITS V1582 PERS HX 10-22-2013 ST TOBACCO USE [facility] PRESENTING FT CHEMO [facility] V5866 LONG-TERM 10-22-2013 ST USE OF [facility] ASPIRIN FT CHEMO V7284 UNSPECIFIED 10-22-2013 ST [facility] PRE-OPERATI PHYSICIANS VE EKG EXAMINATION V8542 BODY MASS 10-22-2013 ST INDEX [facility] 45.0-49.9 FT CHEMO ADULT 2469 UNSPECIFIED 10-02-2013 ST DISORDER [facility] OF THYROID MED CTR 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 ST 69647 UNSPECIFIED 10-02-2013 ST SLEEP [facility] APNEA MED CTR 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 ST V641 SURG/OTH 10-02-2013 ST PROC NOT [facility] DONE MED CTR 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 BECAUSE ST CONTRAINDIC ATION 4748 OTHER 09-30-2013 ST CHRONIC [facility] DISEASE OF FT CHEMO TONSILS AND ADENOIDS 63319 OTHER 09-30-2013 ST DISEASES OF [facility] NASAL FT CHEMO CAVITY AND SINUSES 9330 FOREIGN 09-13-2013 ST BODY IN [facility] PHARYNX PHYSICIANS 9085 LATE EFFECT 08-29-2013 SHAI OF FOREIGN CO BODY IN AMBULANCE ORIFICE TAXIN 9331 FOREIGN 08-29-2013 [place] BODY IN [facility] LARYNX INC 2724 OTHER AND 07-05-[address] UNSPECIFIED [facility] PHYSICIANS HYPERLIPIDE JULIANE 54901 OSTEOARTHRO 07-05-2013 ST SIS UNSPEC [facility] WHETHER PHYSICIANS GEN/LOC LOWER LEG 23414 IMPAIRED 07-05-2013 GLUCOSE [facility] TOLERANCE PHYSICIANS TEST V6809 OTHER ISSUE 07-05-2013 OF MEDICAL [facility] PHYSICIANS CERTIFICATE S V700 ROUTINE 07-05-2013 GENERAL [facility] MEDICAL PHYSICIANS EXAM@HEALTH CARE FACL 2720 PURE 03-14-2013 ST HYPERCHOLES [facility] TEROLEMIA PHYSICIANS V0481 NEED 03-14-2013 PROPHYLACTI [facility] C PHYSICIANS VACCINATION &INOCULATIO N FLU V7644 SPECIAL 03-14-2013 SCREENING [facility] MALIGNANT PHYSICIANS NEOPLASM OF PROSTATE 82633 OBESITY, 02-12-2013 UNSPECIFIED [facility] 68243 OTHER 02-12-2013 [facility] FATIGUE [facility] 09282 OTHER 02-12-2013 [facility] [place] [address] SPASM OF 01-01-2013 MUSCLE [facility] 7840 HEADACHE 10-15-2012 [facility] 7019 UNSPECIFIED 01-18-2012 [facility] HYPERTROPHI PHYSICIANS C&ATROPHIC CONDITION SKIN 7820 DISTURBANCE 01-18-2012 OF SKIN [facility] SENSATION PHYSICIANS 69527 DIAB W/O 10-28-2011 COMP TYPE [facility] II/UNS NOT PHYSICIANS STATED UNCNTRL 7804 DIZZINESS 06-20-2011 [facility] GIDDINESS 3674 PRESBYOPIA 06-07-2011 [facility]ERMAN OD, PSC V571 OTHER 06-02-2011 [facility] [place] [address] OTH 06-07-2010 [facility] [place] [address] HEMIPL 04-28-2010 [facility] UNSPEC SIDE HOSPITAL DUE CEREBRVASC DISEASE 87857 UNSPEC 01-15-2010 EPILEPSY [facility] WITHOUT MEDICALCENT MENTION ER INTRACT EPILEPSY V4589 OTHER 01-15-2010 POSTSURGICA [facility] L STATUS MEDICALCENT OTHER ER 5849 ACUTE 12-11-2009 KIDNEY [facility] FAILURE PHYSICIANS UNSPECIFIED 18912 GEN CONVUL 12-10-2009 [facility] EPILEPSY HEALTHCARE W/O MENTION IN INTRACT EPILEPSY 75443 LOC-REL 12-10-2009 E[facility]LEPSY & [facility] ES W/SPS MED CTR W/INTRACTAB LE EPIL 85515 HTN CKD UNS 12-10-2009 ST W/CKD [facility] STAGE I MEDICALCENT THRU STAGE ER IV/UNS 4439 UNSPECIFIED 12-10-2009 PERIPHERAL [facility] VASCULAR [facility]ICAL[facility]ENT DISEASE ER 5859 CHRONIC 12-10-2009 KIDNEY [facility] DISEASE [facility]ICAL[facility]ENT UNSPECIFIED ER 7810 ABNORMAL 12-10-2009 [facility] TAXIN V854 BODY MASS 12-10-2009 ST INDEX 40 [facility] AND OVER [facility]ICAL[facility] ADULT ER 4011 ESSENTIAL 11-27-2009 HEAD & NECK HYPERTENSIO SURGERY N, [facility] 44602 ACUTE 11-27-2009 HEAD & NECK GINGIVITIS SURGERY NONPLAQUE ASSOC INDUCED 86005 STOMATITIS 11-27-2009 HEAD & NECK AND SURGERY MUCOSITIS ASSOC UNSPECIFIED 7802 SYNCOPE AND 11-17-2009 [facility] PHYSICIANS 03028 CEREBRAL 11-15-2009 [facility] WITH MED CTR CEREBRAL INFARCTION 45499 PAIN IN 11-03-2009 [facility] LOWER LEG PSC 92582 PAIN IN 09-28-2009 [facility] [facility] Medic[facility] Na ND Rx Da Fi Fi Am Da Di Ph RX Ph St me C No te ll ll ou ys ag ar # ys at rm s nt no ma ic us Or Da si cy ia de te s n re d LE 16 09 10 15 30 00 TO Ac VE 71 -0 -0 0. 00 TA ti TI 40 5- 6- 00 00 L ve RA 35 20 20 0 95 CA CE 50 17 17 51 RE TA 1 67 M PH 50 AR 0 MA MG CY TA #5 BL ET AT 60 09 10 30 30 00 [...] 50 1- 2- 00 00 L ve NC 62 20 20 94 CA IL 01 17 17 73 RE 0 13 20 PH AR MG MA CY TA BL #5 ET LE 16 08 09 15 30 00 TO Ac VE 71 -0 -0 0. 00 TA ti TI 40 4- 1- 00 00 L ve RA 35 20 20 0 95 CA CE 50 17 17 51 RE TA 1 67 M PH 50 AR 0 MA MG CY TA #5 BL ET LE 00 08 09 30 30 00 TO Ac VO 37 -0 -0 .0 00 TA ti TH 81 8- 1- 00 00 L ve YR 80 20 20 94 CA OX 31 17 17 44 RE IN 0 95 E PH 50 AR MA MC CY G TA #5 BL ET AT 60 07 [...] 00 07 08 12 30 00 TO Ac TO 09 -2 -1 0. 00 TA ti CL 32 2- 8- 00 00 L ve OP 20 20 20 0 94 CA RA 40 17 17 56 RE NE 5 32 DE PH 5 AR MA MG CY TA #5 BL ET AL 16 07 08 30 30 00 TO Ac LO 71 -1 -1 .0 00 TA ti PU 40 8- 8- 00 00 L ve RI 04 20 20 95 CA NO 21 17 17 63 RE L 1 15 30 PH 0 AR MG MA CY TA BL #5 ET LI 00 07 08 30 30 00 TO Ac SI 18 -1 -1 .0 00 TA ti NO 50 7- 8- 00 00 L ve NC 62 20 20 94 CA IL 01 [...] CA RA 40 17 17 56 RE NE 5 32 DE PH 5 AR MA [...] 50 2- 7- 00 00 L ve NC 62 20 20 94 CA IL 01 [...] 55 06 07 30 30 00 TO NS 11 -1 -0 .0 00 TA [...] CY TA #5 BL ET NE 00 06 06 28 28 00 TO Ac XI 57 -0 -3 .0 00 TA ti UM 32 1- 0- 00 00 L ve 45 20 20 94 CA 24 02 17 17 56 RE HR 8 31 PH 22 AR .3 MA CY MG #5 CA PS UL E LE 00 05 06 30 30 00 TO Ac VO 37 -3 -3 .0 00 TA ti TH 81 0- 0- 00 00 L ve YR 80 20 20 94 CA OX 31 17 17 44 RE IN 0 95 E PH 50 AR MA MC CY G TA #5 BL ET AT 69 05 06 30 30 00 [...] 50 8- 2- 00 00 L ve NC 62 20 20 94 CA IL 01 17 17 73 RE 0 13 20 PH AR MG MA CY TA BL #5 ET LE 00 04 05 30 30 00 TO Ac VO 37 -2 -1 .0 00 TA ti TH 81 6- 9- 00 00 L ve YR 80 20 20 94 CA OX 31 17 17 44 RE IN 0 95 E PH 50 AR MA MC CY G TA #5 BL ET AT 69 04 05 30 30 00 TO Ac OR 09 -2 -1 .0 00 TA ti VA 70 1- 2- [address] 89 20 20 94 CA AT 91 17 17 18 RE IN 5 06 PH 40 AR MA MG CY TA #5 BL ET NE 00 04 05 28 28 00 TO Ac XI 57 -1 -1 .0 00 TA ti UM 32 9- 2- 00 00 L ve 45 20 20 94 CA 24 02 17 17 56 RE HR 8 31 PH 22 AR .3 MA CY MG #5 CA PS UL E ME 61 04 05 30 30 00 TO LO 44 -1 -1 .0 00 TA ti XI 20 9- 2- 00 00 L ve CA 12 20 20 94 CA M 61 17 17 41 RE 7. 0 23 5 PH MG AR MA TA CY BL ET #5 LI 00 04 05 30 30 00 TO SI 18 -1 -0 .0 00 TA ti NO 50 0- 5- 00 00 L ve NC 62 20 20 92 CA IL 01 [...] CA RA 40 17 17 56 RE NE 5 32 DE PH 5 AR MA [...] CY MG #5 CA PS UL E NC 00 03 04 12 6 00 TO [...] 00 03 03 30 30 00 TO SI 18 -0 -2 .0 00 TA ti NO 50 2- 4- 00 00 L ve NC 62 20 20 92 CA IL 01 17 17 23 RE 0 59 20 PH AR MG MA CY TA BL #5 ET AL 16 02 03 30 30 00 TO LO 72 -2 -2 .0 00 TA ti PU 90 8- 4- 00 00 L ve RI 13 20 20 92 CA NO 51 17 17 07 RE L 6 09 30 PH 0 AR MG MA CY TA BL #5 ET LE 16 02 03 15 30 00 TO VE 71 -2 -1 0. 00 TA ti TI 40 3- 7- 00 00 L ve RA 35 20 20 0 94 CA CE 50 17 17 24 RE TA 1 85 M PH 50 AR 0 MA MG CY TA #5 BL ET DO 49 02 03 20 10 00 TO XY 88 -2 -1 .0 00 TA ti CY 40 3- 7- 00 00 L ve CL 72 20 20 94 CA IN 70 17 17 24 RE E 3 83 MO PH NO AR MA 10 CY 0 MG #5 CA P LE 00 02 03 30 30 00 TO VO 37 -1 -1 .0 00 TA ti TH 81 3- 0- 00 00 L ve YR 80 20 20 91 CA OX 31 17 17 20 RE IN 0 52 E PH 50 AR MA MC CY G TA #5 BL ET AT 60 02 03 30 30 00 TO OR 50 -1 -1 .0 00 TA ti VA 52 3- 0- [address] 58 20 20 92 CA AT 00 17 17 23 RE IN 9 60 PH 40 AR MA MG CY TA #5 BL ET PO 62 02 03 25 15 00 TO LY 17 -1 -1 5. 00 TA ti ET 50 3- 0- 00 00 L ve HY 44 20 20 0 94 CA LE 21 17 17 14 RE NE 5 27 PH GL AR YC MA OL CY 33 #5 50 PO WD AL 16 01 02 30 30 00 TO LO 71 -3 -2 .0 00 TA ti PU 40 0- 4- 00 00 L ve RI 04 20 20 92 CA NO 21 17 17 07 RE L 1 09 30 PH 0 AR MG MA CY TA BL #5 ET LI 00 02 02 30 30 00 TO SI 18 -0 -2 .0 00 TA ti NO 50 1- 4- 00 00 L ve NC 62 20 20 92 CA IL 01 17 17 23 RE 0 59 20 PH AR MG MA CY TA BL #5 ET ME 29 02 30 30 00 TO LO 30 -2 -1 .0 00 TA ti XI 00 4- 7- 00 00 L ve CA 12 20 20 92 CA M 41 17 17 12 RE 7. 0 08 5 PH MG AR MA TA CY BL ET #5 NO 51 01 02 60 30 00 TO RT 67 -2 -1 .0 00 TA [...] CY TA #5 BL ET ME 00 02 12 30 00 TO TO 09 -2 -1 0. 00 TA ti CL 32 7- 7- 00 00 L ve OP 20 20 20 0 93 CA RA 40 17 17 98 RE NE 5 85 DE PH 5 AR MA MG CY TA #5 BL ET LA 00 02 30 30 00 TO NS 37 [...] TA #5 BL ET NO 51 12 60 30 00 TO RT 67 -2 -2 .0 00 TA ti RI 24 9- 0- 00 00 L ve PT 00 20 20 93 CA YL 30 16 17 17 RE IN 2 12 E PH HC AR L MA 50 CY MG #5 CA P AT 60 12 01 30 30 00 TO OR 50 -2 -1 .0 00 TA [...] 4- 9- 00 L 58 FE ve NC 62 20 20 0 CA R IL 01 16 16 RE NE 0 CH 20 PH AE AR L MG MA G CY TA BL #5 ET AT 60 05 02 3 30 30 TO 88 SC Ac OR 50 -0 -0 0. TA 08 MINAYA ti VA 52 4- 9- 00 L [address] 58 20 20 0 CA R AT 00 15 16 RE NE IN 8 CH PH AE 40 AR [...] CA R CE 50 15 16 RE NE TA 1 CH M PH AE 50 [...] CA R AT 00 15 16 RE NE IN 8 CH PH AE 40 AR L MA G MG CY TA #5 BL ET LI 00 01 01 3 30 30 TO 90 SC Ac SI 59 -0 -0 0. TA 23 MINAYA ti NO 10 4- 4- 00 L 58 FE ve NC 40 20 20 0 CA R IL 81 16 16 RE NE 0 CH 20 PH AE AR L MG MA G CY TA BL #5 ET LE 00 10 01 11 30 30 TO 89 SC Ac VO 78 -2 -0 0. TA 59 MINAYA ti TH 15 7- 4- 00 L 38 FE ve YR 18 20 20 0 CA R OX 11 15 16 RE NE IN 0 CH E PH AE 50 AR L MA G MC CY G TA #5 BL ET LE 16 12 12 6 15 30 TO 90 SC Ac VE 71 -2 -2 00 TA 10 MINAYA ti TI 40 1- 1- .0 L 89 FE ve RA 35 20 20 00 CA R CE 50 15 15 RE NE TA 1 CH M PH AE 50 [...] 9- 0- 00 L 33 FE ve NC 19 20 20 0 CA R IL 71 15 15 RE NE 7 CH 20 PH AE AR L MG MA G CY TA BL #5 ET LE 00 10 11 11 30 30 TO 89 SC Ac VO 78 -2 -3 0. TA 59 MINAYA ti TH 15 7- 0- 00 L 38 FE ve YR 18 20 20 0 CA R OX 11 15 15 RE NE IN 0 CH E PH AE 50 AR L MA G MC CY G TA #5 BL ET AT 60 05 11 3 30 30 TO 88 SC Ac OR 50 -0 -3 0. TA 08 MINAYA ti VA 52 4- 0- 00 L [address] 58 20 20 0 CA R AT 00 15 15 RE NE IN 8 CH PH AE 40 AR [...] CA R CE 71 15 15 RE NE TA 2 CH M PH AE 50 [...] AR MA TA CY BL ET #5 LI 16 08 11 3 30 30 TO 88 SC Ac SI 72 -1 -0 0. TA 97 MINAYA ti NO 90 9- 2- 00 L 33 FE ve NC 19 20 20 0 CA R IL 71 15 15 RE NE 7 CH 20 PH AE AR L MG MA G CY TA BL #5 ET AL 16 09 11 6 30 30 TO 89 SC Ac LO 71 -1 -0 0. TA 24 MINAYA ti PU 40 8- 2- 00 L 31 CK ve RI 04 20 20 0 CA NO 21 15 15 RE BR L 1 IA 30 PH N 0 AR MG MA CY TA BL #5 ET PA 66 [...] CA R AT 00 15 15 RE NE IN 8 CH PH AE 40 AR L MA G MG CY TA #5 BL ET LE 00 10 10 11 30 30 TO 89 SC Ac VO 37 -2 -2 0. TA 59 MINAYA ti TH 81 7- 7- 00 L 38 FE ve YR 80 20 20 0 CA R OX 30 15 15 RE NE IN 1 CH E PH AE 50 AR L MA G MC CY G TA #5 BL ET LE 68 05 10 6 15 30 TO 88 SC Ac VE 00 -0 -1 00 TA 09 MINAYA ti TI 10 5- 2- .0 L 84 FE ve RA 11 20 20 00 CA R CE 70 15 15 RE NE TA 3 CH M PH AE 50 [...] 9- 7- 00 L 33 FE ve NC 19 20 20 0 CA R IL 71 15 15 RE NE 7 CH 20 PH AE AR L MG MA G CY TA BL #5 ET LE 68 05 09 6 15 30 TO 88 SC Ac VE 00 -0 -1 00 TA 09 MINAYA ti TI 10 5- 1- .0 L 84 FE ve RA 11 20 20 00 CA R CE 70 15 15 RE NE TA 3 CH M PH AE 50 [...] CA R AT 00 15 15 RE NE IN 8 CH PH AE 40 AR L MA G MG CY TA #5 BL ET LE 00 12 09 11 30 30 TO 86 SC Ac VO 37 -0 -1 0. TA 73 MINAYA ti TH 81 2- 1- 00 L 82 FE ve YR 80 20 20 0 CA R OX 30 14 15 RE NE IN 1 CH E PH AE 50 [...] 9- 9- 00 L 33 FE ve NC 19 20 20 0 CA R IL 71 15 15 RE NE 7 CH 20 PH AE AR L MG MA G CY TA BL #5 ET AL 00 06 08 11 30 30 TO 88 SC Ac LO 37 -1 -1 0. TA 42 MINAYA ti PU 80 2- 9- 00 L 15 FE ve RI 18 20 20 0 CA R NO 10 15 15 RE NE L 5 CH 30 PH AE 0 [...] CA R AT 30 15 15 RE NE IN 5 CH PH AE 40 AR L MA G MG CY TA #5 BL ET LE 68 05 08 6 15 30 TO 88 SC Ac VE 00 -0 -0 00 TA 09 MINAYA ti TI 10 5- 7- .0 L 84 FE ve RA 11 20 20 00 CA R CE 70 15 15 RE NE TA 3 CH M PH AE 50 [...] CA R OX 11 14 15 RE NE IN 0 CH E PH AE 50 [...] CY 40 #5 MG TA B AL 00 06 07 11 30 30 TO 88 SC Ac LO 59 -1 -2 0. TA 42 MINAYA ti PU 15 2- 0- 00 L 15 FE ve RI 54 20 20 0 CA R NO 40 15 15 RE NE L 5 CH 30 PH AE 0 AR L MG MA G CY TA BL #5 ET LI 31 04 07 2 30 30 TO 88 SC Ac SI 72 -2 -2 0. TA 03 MINAYA ti NO 20 8- 0- 00 L 31 FE ve NC 42 20 20 0 CA R IL 00 15 15 RE NE 1 CH 20 PH AE AR L [...] AR MA TA CY BL ET #5 LE 68 05 07 6 15 30 TO 88 SC Ac VE 00 -0 -0 00 TA 09 MINAYA ti TI 10 5- 9- .0 L 84 FE ve RA 11 20 20 00 CA R CE 70 15 15 RE NE TA 3 CH M PH AE 50 [...] CA R OX 11 14 15 RE NE IN 0 CH E PH AE 50 AR L MA G MC CY G TA #5 BL ET AT 55 05 07 3 30 30 TO 88 SC Ac OR 11 -0 -0 0. TA 08 MINAYA ti VA 10 4- 3- 00 L [address] 12 20 20 0 CA R AT 30 15 15 RE NE IN 5 CH PH AE 40 AR [...] CA R NO 40 15 15 RE NE L 5 CH 30 PH AE 0 [...] 8- 8- 00 L 31 FE ve NC 19 20 20 0 CA R IL 71 15 15 RE NE 7 CH 20 PH AE AR L MG MA G CY TA BL #5 ET LE 68 05 06 6 15 30 TO 88 SC Ac VE 00 -0 -0 00 TA 09 MINAYA ti TI 10 5- 5- .0 L 84 FE ve RA 11 20 20 00 CA R CE 70 15 15 RE NE TA 3 CH M PH AE 50 AR L 0 MA G MG CY TA #5 BL ET LE 00 12 05 11 30 30 TO 86 SC Ac VO 78 -0 -2 0. TA 73 MINAYA ti TH 15 2- 7- 00 L 82 FE ve YR 18 20 20 0 CA R OX 11 14 15 RE NE IN 0 CH E PH AE 50 AR L MA G MC CY G TA #5 BL ET AT 55 05 05 3 30 30 TO 88 SC Ac OR 11 -0 -2 0. TA 08 MINAYA ti VA 10 4- 7- 00 L [address] 12 20 20 0 CA R AT 30 15 15 RE NE IN 5 CH PH AE 40 AR [...] CA R CE 70 15 15 RE NE TA 3 CH M PH AE 50 AR L 0 MA G MG CY TA #5 BL ET NO 00 03 05 2 60 30 TO 87 SC Ac RT 59 -0 -0 0. TA 56 MINAYA ti RI 15 4- 4- 00 L 49 FE ve PT 78 20 20 0 CA R YL 80 15 15 RE NE IN 5 CH E PH AE HC AR L L MA G 50 CY MG #5 CA P AT 55 04 04 3 30 30 TO 88 SC Ac OR 11 -3 -3 0. TA 05 MINAYA ti VA 10 0- 0- 00 L [address] 12 20 20 0 CA R AT 30 15 15 RE NE IN 5 CH PH AE 40 AR L MA G MG CY TA #5 BL ET AL 00 06 04 11 30 30 TO 85 SC Ac LO 59 -0 -3 0. TA 28 MINAYA ti PU 15 2- 0- 00 L 63 FE ve RI 54 20 20 0 CA R NO 40 14 15 RE NE L 5 CH 30 PH AE 0 AR L MG MA G CY TA BL #5 ET LI 68 04 04 2 30 30 TO 88 SC Ac SI 00 -2 -2 0. TA 03 MINAYA ti NO 10 8- 8- 00 L 31 FE ve NC 20 20 20 0 CA R IL 80 15 15 RE NE 8 CH 20 PH AE AR L MG MA G CY TA BL #5 ET LE 00 12 04 11 30 30 TO 86 SC Ac VO 78 -0 -1 0. TA 73 MINAYA ti TH 15 2- 6- 00 L 82 FE ve YR 18 20 20 0 CA R OX 11 14 15 RE NE IN 0 CH E PH AE 50 AR L MA G MC CY G TA #5 BL ET LE 68 04 04 6 15 30 TO 84 SC Ac VE 00 -2 -0 00 TA 95 MINAYA ti TI 10 1- 6- .0 L 14 FE ve RA 11 20 20 00 CA R CE 70 14 15 RE NE TA 3 CH M PH AE 50 AR L 0 MA G MG CY TA #5 BL ET NO 00 03 04 2 60 30 TO 87 SC Ac RT 59 -0 -0 0. TA 56 MINAYA ti RI 15 4- 6- 00 L 49 FE ve PT 78 20 20 0 CA R YL 80 15 15 RE NE IN 5 CH E PH AE HC AR L L MA G 50 CY MG #5 CA P AL 00 06 03 11 30 30 TO 85 SC Ac LO 59 -0 -2 0. TA 28 MINAYA ti PU 15 2- 7- 00 L 63 FE ve RI 54 20 20 0 CA R NO 40 14 15 RE NE L 5 CH 30 PH AE 0 AR L MG MA G CY TA BL #5 ET AT 55 04 03 3 30 30 TO 84 SC Ac OR 11 -0 -2 0. TA 80 MINAYA ti VA 10 2- 7- 00 L [address] 12 20 20 0 CA R AT 30 14 15 RE NE IN 5 CH PH AE 40 AR L MA G MG CY TA #5 BL ET LI 68 12 03 2 30 30 TO 87 SC Ac SI 00 -3 -2 0. TA 02 MINAYA ti NO 10 1- 5- 00 L 65 FE ve NC 20 20 20 0 CA R IL 80 14 15 RE NE 8 CH 20 PH AE AR L MG MA G CY TA BL #5 ET LE 68 04 03 6 15 30 TO 84 SC Ac VE 00 -2 -0 00 TA 95 MINAYA ti TI 10 1- 4- .0 L 14 FE ve RA 11 20 20 00 CA R CE 70 14 15 RE NE TA 3 CH M PH AE 50 AR L 0 MA G MG CY TA #5 BL ET NO 00 03 03 2 60 30 TO 87 SC Ac RT 59 -0 -0 0. TA 56 MINAYA ti RI 15 4- 4- 00 L 49 FE ve PT 78 20 20 0 CA R YL 80 15 15 RE NE IN 5 CH E PH AE HC [...] TA #5 BL ET AL 00 06 02 11 30 30 TO 85 SC Ac LO 59 -0 -2 0. TA 28 MINAYA ti PU 15 2- 1- 00 L 63 FE ve RI 54 20 20 0 CA R NO 40 14 15 RE NE L 5 CH 30 PH AE 0 AR L MG MA G CY TA BL #5 ET LI 68 12 02 2 30 30 TO 87 SC Ac SI 00 -3 -2 0. TA 02 MINAYA ti NO 10 1- 1- 00 L 65 FE ve NC 20 20 20 0 CA R IL 80 14 15 RE NE 8 CH 20 PH AE AR L MG MA G CY TA BL #5 ET AT 55 04 02 3 30 30 TO 84 SC Ac OR 11 -0 -1 0. TA 80 MINAYA ti VA 10 2- 9- 00 L [address] 12 20 20 0 CA R AT 30 14 15 RE NE IN 5 CH PH AE 40 AR L MA G MG CY TA #5 BL ET LE 00 12 02 11 30 30 TO 86 SC Ac VO 78 -0 -1 0. TA 73 MINAYA ti TH 15 2- 7- 00 L 82 FE ve YR 18 20 20 0 CA R OX 19 14 15 RE NE IN 2 CH E PH AE 50 AR L MA G MC CY G TA #5 BL ET NO 00 06 01 2 60 30 TO 85 SC Ac RT 59 -0 -2 0. TA 28 MINAYA ti RI 15 2- 9- 00 L 65 FE ve PT 78 20 20 0 CA R YL 80 14 15 RE NE IN 5 CH E PH AE HC AR L L MA G 50 CY MG #5 CA P LE 68 04 01 6 15 30 TO 84 SC Ac VE 00 -2 -2 00 TA 95 MINAYA ti TI 10 1- 9- .0 L 14 FE ve RA 11 20 20 00 CA R CE 70 14 15 RE NE TA 3 CH M PH AE 50 AR L 0 MA G MG CY TA #5 BL ET ON 45 12 01 0 30 10 [...] 1- 1- 00 L 65 FE ve NC 42 20 20 0 CA R IL 01 14 14 RE NE 0 CH 20 PH AE AR L MG MA G CY TA BL #5 ET LE 68 04 12 6 15 30 TO 84 SC Ac VE 00 -2 -3 00 TA 95 MINAYA ti TI 10 1- 0- .0 L 14 FE ve RA 11 20 20 00 CA R CE 70 14 14 RE NE TA 3 CH M PH AE 50 AR L 0 MA G MG CY TA #5 BL ET AL 00 06 12 11 30 30 TO 85 SC Ac LO 59 -0 -3 0. TA 28 MINAYA ti PU 15 2- 0- 00 L 63 FE ve RI 54 20 20 0 CA R NO 40 14 14 RE NE L 5 CH 30 PH AE 0 AR L MG MA G CY TA BL #5 ET AT 60 04 12 3 30 30 TO 84 SC Ac OR 50 -0 -3 0. TA 80 MINAYA ti VA 52 2- 0- 00 L [address] 58 20 20 0 CA R AT 00 14 14 RE NE IN 8 CH PH AE 40 AR L MA G MG CY TA #5 BL ET NO 00 06 12 2 60 30 TO 85 SC Ac RT 59 -0 -3 0. TA 28 MINAYA ti RI 15 2- 0- 00 L 65 FE ve PT 78 20 20 0 CA R YL 80 14 14 RE NE IN 5 CH E PH AE HC AR L L MA G 50 CY MG #5 CA P LE 00 12 12 11 30 30 TO 86 SC Ac VO 78 -0 -3 0. TA 73 MINAYA ti TH 15 2- 0- 00 L 82 FE ve YR 18 20 20 0 CA R OX 19 14 14 RE NE IN 2 CH E PH AE 50 AR L MA G MC CY G TA #5 BL ET ON 45 12 12 0 15 5 TO 86 SC Ac DA 96 -0 -3 0. TA 81 MINAYA ti NS 30 9- 0- 00 L 53 CK ve ET 53 20 20 0 CA RO 93 14 14 RE BR N 0 IA HC PH N L AR 8 MA MG CY TA #5 BL ET ON 45 12 [...] CA R AT 00 14 14 RE NE IN 8 CH PH AE 40 AR L MA G MG CY TA #5 BL ET LI 00 05 12 2 30 30 TO 85 SC Ac SI 18 -0 -0 0. TA 04 MINAYA ti NO 50 1- 2- 00 L 71 FE ve NC 10 20 20 0 CA R IL 21 14 14 RE NE 0 CH 20 PH AE AR L MG MA G CY TA BL #5 ET LE 00 12 12 11 30 30 TO 86 SC Ac VO 78 -0 -0 0. TA 73 MINAYA ti TH 15 2- 2- 00 L 82 FE ve YR 18 20 20 0 CA R OX 11 14 14 RE NE IN 0 CH E PH AE 50 AR L MA G MC CY G TA #5 BL ET AL 51 10 12 0 30 [...] CY HE N #5 5- 32 5 ON 45 10 10 0 15 5 TO 86 JI Ac DA 96 -2 -2 0. TA 38 BR ti NS 30 2- 2- 00 L 16 IN ve ET 53 20 20 0 CA I RO 93 14 14 RE MH N 0 AM HC PH AD L AR B 8 MA MG CY TA #5 BL ET LE 16 10 10 0 75 30 TO 86 JI Ac VE 72 -2 -2 0. TA 38 BR ti TI 90 2- 2- 00 L 23 IN ve RA 06 20 20 0 CA I CE 71 14 14 RE MH TA 2 AM M PH AD 1, AR B 00 MA 0 CY MG #5 TA BL ET AL 00 09 10 5 30 30 HO 84 JI Ac LO 37 -1 -2 0. ME 79 BR ti PU 80 6- 0- 00 19 IN ve RI 18 20 20 0 CA 8 I NO 10 14 14 RE MH L 5 AM 30 PH AD 0 AR B MG MA CY TA BL ET LE 13 09 10 5 60 30 HO 84 JI Ac VE 66 -1 -2 0. ME 79 BR ti TI 80 6- 0- 00 20 IN ve RA 01 20 20 0 CA 3 I CE 76 14 14 RE MH TA 0 AM M PH AD 1, AR B 00 MA 0 CY MG TA BL ET CE 00 10 10 5 30 2 HO 85 JI Ac FA 33 -0 -2 00 ME 34 BR ti ZO 83 6- 0- .0 94 IN ve LI 50 20 20 00 CA 1 I N 34 14 14 RE MH 1 1 AM G/ PH AD 50 AR B MA ML CY -D EX TR OS E LE 00 09 10 5 30 30 HO 84 JI Ac VO 37 -1 -2 0. ME 79 BR ti TH 81 6- 0- 00 20 IN ve YR 80 20 20 0 CA 5 I OX 91 14 14 RE MH IN 0 AM E PH AD 10 AR B 0 MA MC CY G TA BL ET NO 00 09 10 5 60 30 HO 84 JI Ac RT 09 -1 -2 0. ME 79 BR ti RI 30 6- 0- 00 21 IN ve PT 81 20 20 0 CA 0 I YL 20 14 14 RE MH IN 5 AM E PH AD HC AR B L MA 50 CY MG CA P 00 09 10 5 30 30 HO [...] 22 6- 7- 00 21 IN ve NE 90 20 20 0 CA 1 I DE 88 14 14 RE MH 0 AM 20 PH AD AR B MG MA CY TA BL ET AT 00 09 10 5 30 30 [...] -D EX TR OS E CE 00 10 10 5 90 3 [...] I RA 40 14 14 RE MH NE 5 AM DE PH AD 5 AR [...] -0 -0 0. ME 22 BR ti NC 40 1- 1- 00 74 IN ve [...] OS E FE 00 09 09 0 50 15 HO 85 JI Ac NT 37 -2 -2 .0 ME 05 BR ti AN 89 5- 5- 00 32 IN ve YL 12 20 20 CA 1 I 19 14 14 RE MH 25 8 AM PH AD MC AR B G/ MA HR CY PA TC H OM 00 09 09 5 30 30 [...] 22 6- 6- 00 21 IN ve NE 90 20 20 0 CA 1 I [...] -1 -1 0. ME 79 BR ti NC 80 6- 6- 00 21 IN ve OL 01 20 20 0 CA 2 I OL 80 14 14 RE MH 5 AM TA PH AD RT AR B RA MA TE CY 25 MG TA B NC 00 09 09 5 40 1 HO [...] MG MA CY TA BL ET LE 00 07 08 [...] 50 1- 1- 00 50 IN ve NC 10 20 20 0 CA 7 I [...] EW CY AB LE TA BL ET ON 00 08 08 5 23 8 HO 83 JI Ac DA 37 -0 -0 0. ME 65 BR ti NS 80 7- 7- 00 53 IN ve ET 34 20 20 0 CA 1 I RO 49 14 14 RE MH N 3 AM HC PH AD L AR B 8 MA MG CY TA BL ET NC 00 08 08 5 70 2 HO 83 JI Ac OC 37 -0 -0 .0 ME 65 BR ti HL 85 7- 7- 00 53 IN ve OR 11 20 20 CA 0 I PE 00 14 14 RE MH RA 1 AM ZI PH AD NE AR B MA 10 CY MG TA B DE 49 08 08 5 10 3 [...] CA R CE 70 14 14 RE NE TA 3 CH M PH AE 50 AR L 0 MA G MG CY TA BL ET LI 68 05 06 2 30 30 TO 85 SC Ac SI 00 -0 -2 0. TA 04 MINAYA ti NO 10 1- 6- 00 L 71 FE ve NC 20 20 20 0 CA R IL 80 14 14 RE NE 8 CH 20 PH AE AR L MG MA G CY TA BL ET AT 60 04 06 3 30 30 TO 84 SC Ac OR 50 -0 -0 0. TA 80 MINAYA ti VA 52 2- 3- 00 [address] 58 20 20 0 CA R AT 00 14 14 RE NE IN 8 CH PH AE 40 AR L MA G MG CY TA BL ET NO 00 06 06 2 60 30 TO 85 SC Ac RT 59 -0 -0 0. TA 28 MINAYA ti RI 15 2- 2- 00 L 65 FE ve PT 78 20 20 0 CA R YL 80 14 14 RE NE IN 5 CH E PH AE HC AR L L MA G 50 CY MG CA P AL 00 06 06 11 30 30 TO 85 SC Ac LO 59 -0 -0 0. TA 28 MINAYA ti PU 15 2- 2- 00 L 63 FE ve RI 54 20 20 0 CA R NO 40 14 14 RE NE L 5 CH 30 PH AE 0 AR L MG MA G CY TA BL ET LE 68 04 05 6 15 30 TO 84 SC Ac VE 00 -2 -2 00 TA 95 MINAYA ti TI 10 1- 7- .0 L 14 FE ve RA 11 20 20 00 CA R CE 70 14 14 RE NE TA 3 CH M PH AE 50 AR L 0 MA G MG CY TA BL ET LI 68 05 05 2 30 30 TO 85 SC Ac SI 00 -0 -0 0. TA 04 MINAYA ti NO 10 1- 1- 00 L 71 FE ve NC 20 20 20 0 CA R IL 80 14 14 RE NE 8 CH 20 PH AE AR L MG MA G CY TA BL ET AT 60 04 05 3 30 30 TO 84 SC Ac OR 50 -0 -0 0. TA 80 MINAYA ti VA 52 2- 1- 00 [address] 58 20 20 0 CA R AT 00 14 14 RE NE IN 8 CH PH AE 40 AR L MA G MG CY TA BL ET NO 00 02 05 2 60 30 TO 84 SC Ac RT 59 -1 -0 0. TA 44 MINAYA ti RI 15 8- 1- 00 L 13 FE ve PT 78 20 20 0 CA R YL 80 14 14 RE NE IN 5 CH E PH AE HC AR L L MA G 50 CY MG CA P LE 00 04 05 3 30 30 TO 84 SC Ac VO 78 -0 -0 0. TA 80 MINAYA ti TH 15 2- 1- 00 L 05 FE ve YR 18 20 20 0 CA R OX 41 14 14 RE NE IN 0 CH E PH AE 10 AR L 0 MA G MC CY G TA BL ET LE 68 04 04 6 15 30 TO 84 SC Ac VE 18 -2 -2 00 TA 95 MINAYA ti TI 00 1- 1- .0 L 14 FE ve RA 11 20 20 00 CA R CE 30 14 14 RE NE TA 2 CH M PH AE 50 AR L 0 MA G MG CY TA BL ET NC 68 02 04 3 30 30 TO 84 SC Ac AV 18 -1 -0 0. TA 44 MINAYA ti 00 8- 2- 00 L 12 FE ve TA 48 20 20 0 CA R TI 80 14 14 RE NE N 2 CH SO PH AE DI AR L UM MA G CY 80 MG TA B LI 00 07 04 2 30 30 TO 82 SC Ac SI 18 -3 -0 0. TA 93 MINAYA ti NO 50 1- 2- 00 L 25 FE ve NC 10 20 20 0 CA R IL 21 13 14 RE NE 0 CH 20 PH AE AR L MG MA G CY TA BL ET AT 60 04 04 3 30 30 TO 84 SC Ac OR 50 -0 -0 0. TA 80 MINAYA ti VA 52 2- 2- 00 L [address] 58 20 20 0 CA R AT 00 14 14 RE NE IN 8 CH PH AE 40 AR L MA G MG CY TA BL ET AL 00 05 04 11 30 30 TO 82 SC Ac LO 59 -3 -0 0. TA 50 MINAYA ti PU 15 0- 2- 00 L 79 FE ve RI 54 20 20 0 CA R NO 40 13 14 RE NE L 5 CH 30 PH AE 0 AR L MG MA G CY TA BL ET LE 00 04 04 3 30 30 TO 84 SC Ac VO 78 -0 -0 0. TA 80 MINAYA ti TH 15 2- 2- 00 L 05 FE ve YR 18 20 20 0 CA R OX 41 14 14 RE NE IN 0 CH E PH AE 10 AR L 0 MA G MC CY G TA BL ET LE 68 09 03 6 15 30 TO 83 SC Ac VE 18 -1 -1 00 TA 25 MINAYA ti TI 00 1- 9- .0 L 94 FE ve RA 11 20 20 00 CA R CE 30 13 14 RE NE TA 2 CH M PH AE 50 AR L 0 MA G MG CY TA BL ET NO 00 02 03 2 60 30 TO 84 SC Ac RT 59 -1 -1 0. TA 44 MINAYA ti RI 15 8- 7- 00 L 13 FE ve PT 78 20 20 0 CA R YL 80 14 14 RE NE IN 5 CH E PH AE HC AR L L MA G 50 CY MG CA P LI 00 10 02 2 30 30 TO 83 SC Ac SI 18 -3 -1 0. TA 64 MINAYA ti NO 50 1- 8- 00 L 87 FE ve NC 10 20 20 0 CA R IL 21 13 14 RE NE 0 CH 20 PH AE AR L MG MA G CY TA BL ET LE 68 09 02 6 15 30 TO 83 SC Ac VE 18 -1 -1 00 TA 25 MINAYA ti TI 00 1- 8- .0 L 94 FE ve RA 11 20 20 00 CA R CE 30 13 14 RE NE TA 2 CH M PH AE 50 AR L 0 MA G MG CY TA BL ET LE 00 12 02 11 30 30 TO 83 SC Ac VO 52 -1 -1 0. TA 95 MINAYA ti TH 71 2- 8- 00 L 40 FE ve YR 34 20 20 0 CA R OX 21 13 14 RE NE IN 0 CH E PH AE 50 AR L MA G MC CY G TA BL ET NC 68 02 02 3 30 30 TO 84 SC Ac AV 18 -1 -1 0. TA 44 MINAYA ti 00 8- 8- 00 L 12 FE ve TA 48 20 20 0 CA R TI 80 14 14 RE NE N 2 CH SO PH AE DI AR L UM MA G CY 80 MG TA B NO 00 02 02 2 60 30 TO 84 SC Ac RT 59 -1 -1 0. TA 44 MINAYA ti RI 15 8- 8- 00 L 13 FE ve PT 78 20 20 0 CA R YL 80 14 14 RE NE IN 5 CH E PH AE HC AR L L MA G 50 CY MG CA P AL 00 05 02 11 30 30 TO 82 SC Ac LO 59 -3 -1 0. TA 50 MINAYA ti PU 15 0- 8- 00 L 79 FE ve RI 54 20 20 0 CA R NO 40 13 14 RE NE L 5 CH 30 PH AE 0 AR L MG MA G CY TA BL ET LE 68 09 01 6 15 30 TO 83 SC Ac VE 18 -1 -1 00 TA 25 MINAYA ti TI 00 1- 8- .0 L 94 FE ve RA 11 20 20 00 CA R CE 30 13 14 RE NE TA 2 CH M PH AE 50 AR L 0 MA G MG CY TA BL ET LE 00 12 01 11 30 30 TO 83 SC Ac VO 52 -1 -1 0. TA 95 MINAYA ti TH 71 2- 5- 00 L 40 FE ve YR 34 20 20 0 CA R OX 21 13 14 RE NE IN 0 CH E PH AE 50 AR L MA G MC CY G TA BL ET NO 00 11 01 2 60 30 TO 83 SC Ac RT 59 -0 -1 0. TA 67 MINAYA ti RI 15 4- 5- 00 L 02 FE ve PT 78 20 20 0 CA R YL 80 13 14 RE NE IN 5 CH E PH AE HC AR L L MA G 50 CY MG CA P AL 00 05 01 11 30 30 TO 82 SC Ac LO 59 -3 -0 0. TA 50 MINAYA ti PU 15 0- 6- 00 L 79 FE ve RI 54 20 20 0 CA R NO 40 13 14 RE NE L 5 CH 30 PH AE 0 AR L MG MA G CY TA BL ET NC 68 02 01 3 30 30 TO 81 SC Ac AV 18 -0 -0 0. TA 58 MINAYA ti 00 1- 6- 00 L 78 FE ve TA 48 20 20 0 CA R TI 80 13 14 RE NE N 2 CH SO PH AE DI AR L UM MA G CY 80 MG TA B LI 00 10 12 2 30 30 TO 83 SC Ac SI 18 -3 -3 0. TA 64 MINAYA ti NO 50 1- 1- 00 L 87 FE ve NC 10 20 20 0 CA R IL 21 13 13 RE NE 0 CH 20 PH AE AR L MG MA G CY TA BL ET LE 68 09 12 6 15 30 TO 83 SC Ac VE 18 -1 -1 00 TA 25 MINAYA ti TI 00 1- 6- .0 L 94 FE ve RA 11 20 20 00 CA R CE 30 13 13 RE NE TA 2 CH M PH AE 50 AR L 0 MA G MG CY TA BL ET NO 00 11 12 2 60 30 TO 83 SC Ac RT 59 -0 -1 0. TA 67 MNIAYA ti RI 15 4- 6- 00 L 02 FE ve PT 78 20 20 0 CA R YL 80 13 13 RE NE IN 5 CH E PH AE HC AR L L MA G 50 CY MG CA P LE 00 12 12 11 30 30 TO 83 SC Ac VO 52 -1 -1 0. TA 95 MINAYA ti TH 71 2- 2- 00 L 40 FE ve YR 34 20 20 0 CA R OX 21 13 13 RE NE IN 0 CH E PH AE 50 AR L MA G MC CY G TA BL ET NC 68 02 12 3 30 30 TO 81 SC Ac AV 18 -0 -0 0. TA 58 MINAYA ti 00 1- 2- 00 L 78 FE ve TA 48 20 20 0 CA R TI 80 13 13 RE NE N 2 CH SO PH AE DI AR L UM MA G CY 80 MG TA B AL 00 05 12 11 30 30 TO 82 SC Ac LO 59 -3 -0 0. TA 50 MINAYA ti PU 15 0- 2- 00 L 79 FE ve RI 54 20 20 0 CA R NO 40 13 13 RE NE L 5 CH 30 PH AE 0 AR L MG MA G CY TA BL ET LE 68 09 11 6 15 30 TO 83 SC Ac VE 18 -1 -1 00 TA 25 MINAYA ti TI 00 1- 8- .0 L 94 FE ve RA 11 20 20 00 CA R CE 30 13 13 RE NE TA 2 CH M PH AE 50 AR L 0 MA G MG CY TA BL ET LE 00 11 11 2 30 30 TO 83 SC Ac VO 78 -1 -1 0. TA 75 MINAYA ti TH 15 5- 5- 00 L 98 FE ve YR 18 20 20 0 CA R OX 01 13 13 RE NE IN 0 CH E PH AE 25 AR L MA G MC CY G TA BL ET LI 00 10 11 2 30 30 TO 83 SC Ac SI 18 -3 -0 0. TA 64 MINAYA ti NO 50 1- 7- 00 L 87 FE ve NC 10 20 20 0 CA R IL 21 13 13 RE NE 0 CH 20 PH AE AR L MG MA G CY TA BL ET NO 00 11 11 2 60 30 TO 83 SC Ac RT 59 -0 -0 0. TA 67 MINAYA ti RI 15 4- 4- 00 L 02 FE ve PT 78 20 20 0 CA R YL 80 13 13 RE NE IN 5 CH E PH AE HC AR L L MA G 50 CY MG CA P LE 68 09 10 6 15 30 TO 83 SC Ac VE 18 -1 -1 00 TA 25 MINAYA ti TI 00 1- 4- .0 L 94 FE ve RA 11 20 20 00 CA R CE 30 13 13 RE NE TA 2 CH M PH AE 50 AR L 0 MA G MG CY TA BL ET NC 68 02 10 3 30 30 TO 81 SC Ac AV 18 -0 -1 0. TA 58 MINAYA ti 00 1- 1- 00 L 78 FE ve TA 48 20 20 0 CA R TI 80 13 13 RE NE N 2 CH SO PH AE DI AR L UM MA G CY 80 MG TA B AL 00 05 10 11 30 30 TO 82 SC Ac LO 59 -3 -1 0. TA 50 MINAYA ti PU 15 0- 1- 00 L 79 FE ve RI 54 20 20 0 CA R NO 40 13 13 RE NE L 5 CH 30 PH AE 0 AR L MG MA G CY TA BL ET LI 00 07 10 2 30 30 TO 82 SC Ac SI 18 -3 -1 0. TA 93 MINAYA ti NO 50 1- 1- 00 L 25 FE ve NC 10 20 20 0 CA R IL 21 13 13 RE NE 0 CH 20 PH AE AR L MG MA G CY TA BL ET NO 00 07 10 2 60 30 TO 82 SC Ac RT 59 -3 -0 0. TA 93 MINAYA ti RI 15 1- 2- 00 L 24 FE ve PT 78 20 20 0 CA R YL 80 13 13 RE NE IN 5 CH E PH AE HC AR L L MA G 50 CY MG CA P LE 68 09 09 6 15 30 TO 83 SC Ac VE 18 -1 -1 00 TA 25 MINAYA ti TI 00 1- 1- .0 L 94 FE ve RA 11 20 20 00 CA R CE 30 13 13 RE NE TA 2 CH M PH AE 50 AR L 0 MA G MG CY TA #5 BL ET NO 00 07 09 2 60 30 TO 82 SC Ac RT 59 -3 -0 0. TA 93 MINAYA ti RI 15 1- 3- 00 L 24 FE ve PT 78 20 20 0 CA R YL 80 13 13 RE NE IN 5 CH E PH AE HC AR L L MA G 50 CY MG #5 CA P NC 68 02 08 3 30 30 TO 81 SC Ac AV 18 -0 -3 0. TA 58 MINAYA ti 00 1- 0- 00 L 78 FE ve TA 48 20 20 0 CA R TI 80 13 13 RE NE N 2 CH SO PH AE DI AR L UM MA G CY 80 #5 MG TA B AL 00 05 08 11 30 30 TO 82 SC Ac LO 59 -3 -3 0. TA 50 MINAYA ti PU 15 0- 0- 00 L 79 FE ve RI 54 20 20 0 CA R NO 40 13 13 RE NE L 5 CH 30 PH AE 0 AR L MG MA G CY TA BL #5 ET LI 00 07 08 2 30 30 TO 82 SC Ac SI 18 -3 -3 0. TA 93 MINAYA ti NO 50 1- 0- 00 L 25 FE ve NC 10 20 20 0 CA R IL 21 13 13 RE NE 0 CH 20 PH AE AR L MG MA G CY TA BL #5 ET LE 68 02 08 6 15 30 TO 81 SC Ac VE 18 -1 -1 00 TA 70 MINAYA ti TI 00 5- 3- .0 L 71 FE ve RA 11 20 20 00 CA R CE 30 13 13 RE NE TA 2 CH M PH AE 50 AR L 0 MA G MG CY TA BL ET NO 00 07 07 2 60 30 TO 82 SC Ac RT 59 -3 -3 0. TA 93 MINAYA ti RI 15 1- 1- 00 L 24 FE ve PT 78 20 20 0 CA R YL 80 13 13 RE NE IN 5 CH E PH AE HC AR L L MA G 50 CY MG CA P NC 68 02 07 3 30 30 TO 81 SC Ac AV 18 -0 -1 0. TA 58 MINAYA ti 00 1- 7- 00 L 78 FE ve TA 48 20 20 0 CA R TI 80 13 13 RE NE N 2 CH SO PH AE DI AR L UM MA G CY 80 MG TA B AL 00 05 07 11 30 30 TO 82 SC Ac LO 59 -3 -1 0. TA 50 MINAYA ti PU 15 0- 7- 00 L 79 FE ve RI 54 20 20 0 CA R NO 40 13 13 RE NE L 5 CH 30 PH AE 0 AR L MG MA G CY TA BL ET LE 68 02 07 6 15 30 TO 81 SC Ac VE 18 -1 -1 00 TA 70 MINAYA ti TI 00 5- 1- .0 L 71 FE ve RA 11 20 20 00 CA R CE 30 13 13 RE NE TA 2 CH M PH AE 50 AR L 0 MA G MG CY TA BL ET LI 00 07 07 0 30 30 TO 82 SC Ac SI 18 -0 -0 0. TA 77 MINAYA ti NO 50 9- 9- 00 L 54 FE ve NC 10 20 20 0 CA R IL 21 13 13 RE NE 0 CH 20 PH AE AR L MG MA G CY TA BL ET LE 00 05 07 2 30 30 TO 82 SC Ac VO 37 -0 -0 0. TA 34 MINAYA ti TH 81 8- 3- 00 L 41 FE ve YR 80 20 20 0 CA R OX 00 13 13 RE NE IN 1 CH E PH AE 25 AR L MA G MC CY G TA BL ET NO 00 04 06 2 60 30 TO 82 SC Ac RT 59 -1 -2 0. TA 17 MINAYA ti RI 15 5- 8- 00 L 15 FE ve PT 78 20 20 0 CA R YL 80 13 13 RE NE IN 5 CH E PH AE HC [...] CA R CE 30 13 13 RE NE TA 2 CH M PH AE 50 AR L 0 MA G MG CY TA BL ET LE 00 05 06 2 30 30 TO 82 SC Ac VO 37 -0 -0 0. TA 34 MINAYA ti TH 81 8- 5- 00 L 41 FE ve YR 80 20 20 0 CA R OX 00 13 13 RE NE IN 1 CH E PH AE 25 AR L MA G MC CY G TA BL ET AL 00 05 05 11 30 30 TO 82 SC Ac LO 59 -3 -3 0. TA 50 MINAYA ti PU 15 0- 0- 00 L 79 FE ve RI 54 20 20 0 CA R NO 40 13 13 RE NE L 5 CH 30 PH AE 0 AR L MG MA G CY TA BL ET NO 00 04 05 2 60 30 TO 82 SC Ac RT 59 -1 -3 0. TA 17 MINAYA ti RI 15 5- 0- 00 L 15 FE ve PT 78 20 20 0 CA R YL 80 13 13 RE NE IN 5 CH E PH AE HC AR L L MA G 50 CY MG CA P NC 68 02 05 3 30 30 TO 81 SC Ac AV 18 -0 -2 0. TA 58 MINAYA ti 00 1- 2- 00 L 78 FE ve TA 48 20 20 0 CA R TI 80 13 13 RE NE N 2 CH SO PH AE DI AR L UM MA G CY 80 MG TA B LE 68 02 05 6 15 30 TO 81 SC Ac VE 18 -1 -1 00 TA 70 MINAYA ti TI 00 5- 3- .0 L 71 FE ve RA 11 20 20 00 CA R CE 30 13 13 RE NE TA 2 CH M PH AE 50 AR L 0 MA G MG CY TA BL ET LE 00 05 05 2 30 30 TO 82 SC Ac VO 37 -0 -0 0. TA 34 MINAYA ti TH 81 8- 8- 00 L 41 FE ve YR 80 20 20 0 CA R OX 00 13 13 RE NE IN 1 CH E PH AE 25 AR L MA G MC CY G TA BL ET NO 00 04 04 2 60 30 TO 82 SC Ac RT 59 -1 -2 0. TA 17 MINAYA ti RI 15 5- 6- 00 L 15 FE ve PT 78 20 20 0 CA R YL 80 13 13 RE NE IN 5 CH E PH AE HC AR L L MA G 50 CY MG CA P AL 00 05 04 11 30 30 TO 79 SC Ac LO 59 -0 -1 0. TA 42 MINAYA ti PU 15 7- 8- 00 L 42 FE ve RI 54 20 20 0 CA R NO 40 12 13 RE NE L 5 CH 30 PH AE 0 AR L MG MA G CY TA BL ET LE 68 02 04 6 15 30 TO 81 SC Ac VE 18 -1 -1 00 TA 70 MINAYA ti TI 00 5- 5- .0 L 71 FE ve RA 11 20 20 00 CA R CE 30 13 13 RE NE TA 2 CH M PH AE 50 AR L 0 MA G MG CY TA BL ET NO 00 01 03 2 60 30 TO 81 SC Ac RT 59 -2 -2 0. TA 51 MINAYA ti RI 15 4- 8- 00 L 29 FE ve PT 78 20 20 0 CA R YL 80 13 13 RE NE IN 5 CH E PH AE HC AR L L MA G 50 CY MG CA P LE 68 02 03 6 15 30 TO 81 SC Ac VE 18 -1 -1 00 TA 70 MINAYA ti TI 00 5- 5- .0 L 71 FE ve RA 11 20 20 00 CA R CE 30 13 13 RE NE TA 2 CH M PH AE 50 AR L 0 MA G MG CY TA BL ET NC 68 02 03 3 30 30 TO 81 SC Ac AV 18 -0 -0 0. TA 58 MINAYA ti 00 1- 7- 00 L 78 FE ve TA 48 20 20 0 CA R TI 80 13 13 RE NE N 2 CH SO PH AE DI AR L UM MA G CY 80 MG TA B LI 00 07 03 3 90 90 TO 79 SC Ac SI 18 -0 -0 0. TA 88 MINAYA ti NO 50 6- 4- 00 L 56 FE ve NC 10 20 20 0 CA R IL 21 12 13 RE NE 0 CH 20 PH AE AR L MG MA G CY TA BL ET LE 00 11 02 2 30 30 TO 80 SC Ac VO 37 -1 -2 0. TA 90 MINAYA ti TH 81 2- 7- 00 L 11 FE ve YR 80 20 20 0 CA R OX 00 12 13 RE NE IN 1 CH E PH AE 25 AR L MA G MC CY G TA BL ET AL 00 05 02 11 30 30 TO 79 SC Ac LO 59 -0 -2 0. TA 42 MINAYA ti PU 15 7- 7- 00 L 42 FE ve RI 54 20 20 0 CA R NO 40 12 13 RE NE L 5 CH 30 PH AE 0 AR L MG MA G CY TA BL ET NO 00 01 02 2 60 30 TO 81 SC Ac RT 59 -2 -2 0. TA 51 MINAYA ti RI 15 4- 7- 00 L 29 FE ve PT 78 20 20 0 CA R YL 80 13 13 RE NE IN 5 CH E PH AE HC AR L L MA G 50 CY MG CA P LE 68 02 02 6 15 30 TO 81 SC Ac VE 18 -1 -1 00 TA 70 MINAYA ti TI 00 5- 5- .0 L 71 FE ve RA 11 20 20 00 CA R CE 30 13 13 RE NE TA 2 CH M PH AE 50 AR L 0 MA G MG CY TA #5 BL ET NC 68 02 02 3 30 30 TO 81 SC Ac AV 18 -0 -0 0. TA 58 MINAYA ti 00 1- 1- 00 L 78 FE ve TA 48 20 20 0 CA R TI 80 13 13 RE NE N 2 CH SO PH AE DI AR L UM MA G CY 80 #5 MG TA B NO 00 01 01 2 60 30 TO 81 SC Ac RT 59 -2 -2 0. TA 51 MINAYA ti RI 15 4- 4- 00 L 29 FE ve PT 78 20 20 0 CA R YL 80 13 13 RE NE IN 1 CH E PH AE HC AR L L MA G 50 CY MG #5 CA P LE 68 07 01 6 15 30 TO 79 SC Ac VE 18 -1 -1 00 TA 97 MINAYA ti TI 00 9- 6- .0 L 87 FE ve RA 11 20 20 00 CA R CE 30 12 13 RE NE TA 2 CH M PH AE 50 AR L 0 MA G MG CY TA #5 BL ET AL 00 05 01 11 30 30 TO 79 SC Ac LO 59 -0 -0 0. TA 42 MINAYA ti PU 15 7- 9- 00 L 42 FE ve RI 54 20 20 0 CA R NO 40 12 13 RE NE L 5 CH 30 PH AE 0 AR L MG MA G CY TA BL #5 ET LE 00 11 01 2 30 30 TO 80 SC Ac VO 37 -1 -0 0. TA 90 MINAYA ti TH 81 2- 9- 00 L 11 FE ve YR 80 20 20 0 CA R OX 00 12 13 RE NE IN 1 CH E PH AE 25 AR L MA G MC CY G TA #5 BL ET NO 00 10 12 2 60 30 TO 80 SC Ac RT 59 -2 -2 0. TA 75 MINAYA ti RI 15 4- 6- 00 L 26 FE ve PT 78 20 20 0 CA R YL 80 12 12 RE NE IN 1 CH E PH AE HC AR L L MA G 50 CY MG #5 CA P LE 68 07 12 6 15 30 TO 79 SC Ac VE 18 -1 -1 00 TA 97 MINAYA ti TI 00 9- 8- .0 L 87 FE ve RA 11 20 20 00 CA R CE 30 12 12 RE NE TA 2 CH M PH AE 50 AR L 0 MA G MG CY TA #5 BL ET NC 68 01 11 3 30 30 TO 78 SC Ac AV 18 -1 -2 0. TA 47 MINAYA ti 00 8- 3- 00 L 65 FE ve TA 48 20 20 0 CA R TI 80 12 12 RE NE N 2 CH SO PH AE DI AR L UM MA G CY 80 #5 MG TA B NO 00 10 11 2 60 30 TO 80 SC Ac RT 59 -2 -2 0. TA 75 MINAYA ti RI 15 4- 3- 00 L 26 FE ve PT 78 20 20 0 CA R YL 80 12 12 RE NE IN 1 CH E PH AE HC AR L L MA G 50 CY MG #5 CA P AL 00 05 11 11 30 30 TO 79 SC Ac LO 59 -0 -2 0. TA 42 MINAYA ti PU 15 7- 3- 00 L 42 FE ve RI 54 20 20 0 CA R NO 40 12 12 RE NE L 5 CH 30 PH AE 0 AR L MG MA G CY TA BL #5 ET LE 68 07 11 6 15 30 TO 79 SC Ac VE 18 -1 -1 00 TA 97 MINAYA ti TI 00 9- 9- .0 L 87 FE ve RA 11 20 20 00 CA R CE 30 12 12 RE NE TA 2 CH M PH AE 50 AR L 0 MA G MG CY TA #5 BL ET LE 00 11 11 2 30 30 TO 80 SC Ac VO 37 -1 -1 0. TA 90 MINAYA ti TH 81 2- 2- 00 L 11 FE ve YR 80 20 20 0 CA R OX 00 12 12 RE NE IN 1 CH E PH AE 25 AR L MA G MC CY G TA #5 BL ET LI 00 07 11 3 90 90 TO 79 SC Ac SI 18 -0 -0 0. TA 88 MINAYA ti NO 50 6- 7- 00 L 56 FE ve NC 10 20 20 0 CA R IL 21 12 12 RE NE 0 CH 20 PH AE AR L MG MA G CY TA BL #5 ET NO 00 10 10 2 60 30 TO 80 SC Ac RT 59 -2 -2 0. TA 75 MINAYA ti RI 15 4- 4- 00 L 26 FE ve PT 78 20 20 0 CA R YL 80 12 12 RE NE IN 1 CH E PH AE HC AR L L MA G 50 CY MG #5 CA P AL 00 05 10 11 30 30 TO 79 SC Ac LO 59 -0 -1 0. TA 42 MINAYA ti PU 15 7- 8- 00 L 42 FE ve RI 54 20 20 0 CA R NO 40 12 12 RE NE L 5 CH 30 PH AE 0 AR L MG MA G CY TA BL #5 ET LE 68 07 10 6 15 30 TO 79 SC Ac VE 18 -1 -1 00 TA 97 MINAYA ti TI 00 9- 7- .0 L 87 FE ve RA 11 20 20 00 CA R CE 30 12 12 RE NE TA 2 CH M PH AE 50 AR L 0 MA G MG CY TA #5 BL ET NC 68 01 10 3 30 30 TO 78 SC Ac AV 18 -1 -1 0. TA 47 MINAYA ti 00 8- 3- 00 L 65 FE ve TA 48 20 20 0 CA R TI 80 12 12 RE NE N 2 CH SO PH AE DI AR L UM MA G CY 80 #5 MG TA B LE 00 07 10 2 30 30 TO 79 SC Ac VO 37 -0 -0 0. TA 89 MINAYA ti TH 81 9- 3- 00 L 98 FE ve YR 80 20 20 0 CA R OX 00 12 12 RE NE IN 1 CH E PH AE 25 AR L MA G MC CY G TA #5 BL ET NO 00 09 09 0 60 30 TO 80 SC Ac RT 59 -2 -2 0. TA 48 MINAYA ti RI 15 1- 1- 00 L 36 FE ve PT 78 20 20 0 CA R YL 80 12 12 RE NE IN 1 CH E PH AE HC AR L L MA G 50 CY MG #5 CA P LE 68 07 09 6 15 30 TO 79 SC Ac VE 18 -1 -2 00 TA 97 MINAYA ti TI 00 9- 0- .0 L 87 FE ve RA 11 20 20 00 CA R CE 30 12 12 RE NE TA 2 CH M PH AE 50 AR L 0 MA G MG CY TA #5 BL ET AL 00 05 09 11 30 30 TO 79 SC Ac LO 59 -0 -0 0. TA 42 MINAYA ti PU 15 7- 5- 00 L 42 FE ve RI 54 20 20 0 CA R NO 40 12 12 RE NE L 5 CH 30 PH AE 0 AR L MG MA G CY TA BL #5 ET NC 68 01 09 3 30 30 TO 78 SC Ac AV 18 -1 -0 0. TA 47 MINAYA ti 00 8- 5- 00 L 65 FE ve TA 48 20 20 0 CA R TI 80 12 12 RE NE N 2 CH SO PH AE DI AR L UM MA G CY 80 #5 MG TA B NO 00 03 08 5 60 30 TO 78 SC Ac RT 59 -1 -2 0. TA 95 MINAYA ti RI 15 2- 0- 00 L 37 FE ve PT 78 20 20 0 CA R YL 80 12 12 RE NE IN 1 CH E PH AE HC AR L L MA G 50 CY MG #5 CA P LE 00 07 08 2 30 30 TO 79 SC Ac VO 37 -0 -2 0. TA 89 MINAYA ti TH 81 9- 0- 00 L 98 FE ve YR 80 20 20 0 CA R OX 00 12 12 RE NE IN 1 CH E PH AE 25 AR L MA G MC CY G TA #5 BL ET LE 68 07 08 6 15 30 TO 79 SC Ac VE 18 -1 -2 00 TA 97 MINAYA ti TI 00 9- 0- .0 L 87 FE ve RA 11 20 20 00 CA R CE 30 12 12 RE NE TA 2 CH M PH AE 50 AR L 0 MA G MG CY TA #5 BL ET AL 00 05 07 11 30 30 TO 79 SC Ac LO 59 -0 -3 0. TA 42 MINAYA ti PU 15 7- 1- 00 L 42 FE ve RI 54 20 20 0 CA R NO 40 12 12 RE NE L 5 CH 30 PH AE 0 AR L MG MA G CY TA BL #5 ET NC 68 01 07 3 30 30 TO 78 SC Ac AV 18 -1 -3 0. TA 47 MINAYA ti 00 8- 1- 00 L 65 FE ve TA 48 20 20 0 CA R TI 80 12 12 RE NE N 2 CH SO PH AE DI AR L UM MA G CY 80 #5 MG TA B NO 00 03 07 5 60 30 TO 78 SC Ac RT 59 -1 -2 0. TA 95 MINAYA ti RI 15 2- 3- 00 L 37 FE ve PT 78 20 20 0 CA R YL 80 12 12 RE NE IN 1 CH E PH AE HC AR L L MA G 50 CY MG #5 CA P LE 68 07 07 6 15 30 TO 79 SC Ac VE 18 -1 -1 00 TA 97 MINAYA ti TI 00 9- 9- .0 L 87 FE ve RA 11 20 20 00 CA R CE 30 12 12 RE NE TA 2 CH M PH AE 50 AR L 0 MA G MG CY TA #5 BL ET LE 00 07 07 2 30 30 TO 79 SC Ac VO 37 -0 -0 0. TA 89 MINAYA ti TH 81 9- 9- 00 L 98 FE ve YR 80 20 20 0 CA R OX 00 12 12 RE NE IN 1 CH E PH AE 25 AR L MA G MC CY G TA #5 BL ET LI 00 07 07 3 90 90 TO 79 SC Ac SI 18 -0 -0 0. TA 88 MINAYA ti NO 50 6- 6- 00 L 56 FE ve NC 10 20 20 0 CA R IL 21 12 12 RE NE 0 CH 20 PH AE AR L MG MA G CY TA BL #5 ET NO 00 03 06 5 60 30 TO 78 SC Ac RT 59 -1 -2 0. TA 95 MINAYA ti RI 15 2- 1- 00 L 37 FE ve PT 78 20 20 0 CA R YL 80 12 12 RE NE IN 1 CH E PH AE HC AR L L MA G 50 CY MG #5 CA P LE 68 12 06 6 15 30 TO 78 SC Ac VE 18 -2 -2 00 TA 22 MINAYA ti TI 00 0- 1- .0 L 69 FE ve RA 11 20 20 00 CA R CE 30 11 12 RE NE TA 2 CH M PH AE 50 AR L 0 MA G MG CY TA #5 BL ET NC 68 01 06 3 30 30 TO 78 SC Ac AV 18 -1 -1 0. TA 47 MINAYA ti 00 8- 5- 00 L 65 FE ve TA 48 20 20 0 CA R TI 80 12 12 RE NE N 2 CH SO PH AE DI AR L UM MA G CY 80 #5 MG TA B LE 00 03 06 3 90 90 TO 79 SC Ac VO 52 -2 -1 0. TA 07 MINAYA ti TH 71 6- 5- 00 L 23 FE ve YR 34 20 20 0 CA R OX 21 12 12 RE NE IN 0 CH E PH AE 50 AR L MA G MC CY G TA #5 BL ET AL 00 05 06 11 30 30 TO 79 SC Ac LO 59 -0 -1 0. TA 42 MINAYA ti PU 15 7- 5- 00 L 42 FE ve RI 54 20 20 0 CA R NO 40 12 12 RE NE L 5 CH 30 PH AE 0 AR L MG MA G CY TA BL #5 ET LI 00 09 06 11 30 30 TO 77 SC Ac SI 18 -0 -0 0. TA 30 MINAYA ti NO 50 7- 6- 00 L 88 FE ve NC 10 20 20 0 CA R IL 11 11 12 RE NE 0 CH 10 PH AE AR L MG MA G CY TA BL #5 ET ME 68 01 05 6 30 30 TO 78 SC Ac LO 38 -1 -3 0. TA 47 MINAYA ti XI 20 8- 1- 00 L 66 FE ve CA 05 20 20 0 CA R M 10 12 12 RE NE 15 5 CH PH AE MG AR L MA G TA CY BL ET #5 LE 68 12 05 6 15 30 TO 78 SC Ac VE 18 -2 -2 00 TA 22 MINAYA ti TI 00 0- 3- .0 L 69 FE ve RA 11 20 20 00 CA R CE 30 11 12 RE NE TA 2 CH M PH AE 50 AR L 0 MA G MG CY TA #5 BL ET NO 00 03 05 5 60 30 TO 78 SC Ac RT 59 -1 -2 0. TA 95 MINAYA ti RI 15 2- 1- 00 L 37 FE ve PT 78 20 20 0 CA R YL 80 12 12 RE NE IN 1 CH E PH AE HC AR L L MA G 50 CY MG #5 CA P AL 00 05 05 11 30 30 TO 79 SC Ac LO 59 -0 -0 0. TA 42 MINAYA ti PU 15 7- 7- 00 L 42 FE ve RI 54 20 20 0 CA R NO 40 12 12 RE NE L 5 CH 30 PH AE 0 AR L MG MA G CY TA BL #5 ET NC 68 01 05 3 30 30 TO 78 SC Ac AV 18 -1 -0 0. TA 47 MINAYA ti 00 8- 7- 00 L 65 FE ve TA 48 20 20 0 CA R TI 80 12 12 RE NE N 2 CH SO PH AE DI AR L UM MA G CY 80 #5 MG TA B LE 68 12 04 6 15 30 TO 78 SC Ac VE 18 -2 -2 00 TA 22 MINAYA ti TI 00 0- 1- .0 L 69 FE ve RA 11 20 20 00 CA R CE 30 11 12 RE NE TA 2 CH M PH AE 50 AR L 0 MA G MG CY TA #5 BL ET NO 00 03 04 5 60 30 TO 78 SC Ac RT 59 -1 -1 0. TA 95 MINAYA ti RI 15 2- 0- 00 L 37 FE ve PT 78 20 20 0 CA R YL 80 12 12 RE NE IN 1 CH E PH AE HC AR L L MA G 50 CY MG #5 CA P ME 68 01 04 6 30 30 TO 78 SC Ac LO 38 -1 -0 0. TA 47 MINAYA ti XI 20 8- 9- 00 L 66 FE ve CA 05 20 20 0 CA R M 10 12 12 RE NE 15 5 CH PH AE MG AR L MA G TA CY BL ET #5 LI 00 09 04 11 30 0 TO 77 SC Ac SI 18 -0 -0 0. TA 30 MINAYA ti NO 50 7- 3- 00 L 88 FE ve NC 10 20 20 0 CA R IL 11 11 12 RE NE 0 CH 10 PH AE AR L MG MA G CY TA BL #5 ET AL 00 08 04 6 30 0 TO 77 KA Ac LO 59 -2 -0 0. TA 22 LF ti PU 15 6- 3- 00 L 63 ve RI 54 20 20 0 CA NO 40 11 12 RE NE L 5 NA 30 PH C 0 AR MG MA CY TA BL #5 ET LE 00 03 03 3 90 0 TO 79 SC Ac VO 52 -2 -2 0. TA 07 MINAYA ti TH 71 6- 6- 00 L 23 FE ve YR 34 20 20 0 CA R OX 21 12 12 RE NE IN 0 CH E PH AE 50 AR L MA G MC CY G TA #5 BL ET LE 68 12 03 6 15 0 TO 78 SC Ac VE 18 -2 -2 00 TA 22 MINAYA ti TI 00 0- 2- .0 L 69 FE ve RA 11 20 20 00 CA R CE 30 11 12 RE NE TA 2 CH M PH AE 50 AR L 0 MA G MG CY TA #5 BL ET NC 68 01 03 3 30 0 TO 78 SC Ac AV 18 -1 -1 0. TA 47 MINAYA ti 00 8- 7- 00 L 65 FE ve TA 48 20 20 0 CA R TI 80 12 12 RE NE N 2 CH SO PH AE DI AR L UM MA G CY 80 #5 MG TA B NO 00 03 03 5 60 0 TO 78 SC Ac RT 59 -1 -1 0. TA 95 MINAYA ti RI 15 2- 2- 00 L 37 FE ve PT 78 20 20 0 CA R YL 80 12 12 RE NE IN 1 CH E PH AE HC AR L L MA G 50 CY MG #5 CA P AL 00 08 03 6 30 0 TO 77 KA Ac LO 59 -2 -0 0. TA 22 LF ti PU 15 6- 1- 00 L 63 ve RI 54 20 20 0 CA NO 40 11 12 RE NE L 5 NA 30 PH C 0 AR MG MA CY TA BL #5 ET LI 00 09 03 11 30 0 TO 77 SC Ac SI 18 -0 -0 0. TA 30 MINAYA ti NO 50 7- 1- 00 L 88 FE ve NC 10 20 20 0 CA R IL 11 11 12 RE NE 0 CH 10 PH AE AR L MG MA G CY TA BL #5 ET ME 68 01 02 6 30 0 TO 78 SC Ac LO 38 -1 -2 0. TA 47 MINAYA ti XI 20 8- 4- 00 L 66 FE ve CA 05 20 20 0 CA R M 10 12 12 RE NE 15 5 CH PH AE MG AR L MA G TA CY BL ET #5 LE 68 12 02 6 15 0 TO 78 SC Ac VE 18 -2 -2 00 TA 22 MINAYA ti TI 00 0- 1- .0 L 69 FE ve RA 11 20 20 00 CA R CE 30 11 12 RE NE TA 2 CH M PH AE 50 AR L 0 MA G MG CY TA #5 BL ET NO 00 01 02 1 60 0 TO 78 SC Ac RT 59 -0 -0 0. TA 37 MINAYA ti RI 15 9- 9- 00 L 63 FE ve PT 78 20 20 0 CA R YL 80 12 12 RE NE IN 1 CH E PH AE HC AR L L MA G 50 CY MG #5 CA P LI 00 09 02 11 30 0 TO 77 SC Ac SI 18 -0 -0 0. TA 30 MINAYA ti NO 50 7- 1- 00 L 88 FE ve NC 10 20 20 0 CA R IL 11 11 12 RE NE 0 CH 10 PH AE AR L MG MA G CY TA BL #5 ET AL 00 08 02 6 30 0 TO 77 KA Ac LO 59 -2 -0 0. TA 22 LF ti PU 15 6- 1- 00 L 63 ve RI 54 20 20 0 CA NO 40 11 12 RE NE L 5 NA 30 PH C 0 AR MG MA CY TA BL #5 ET TR 65 01 01 3 90 0 TO 78 SC Ac AM 16 -2 -2 0. TA 54 MINAYA ti AD 20 5- 5- 00 L 59 FE ve OL 62 20 20 0 CA R 71 12 12 RE NE HC 1 CH L PH AE 50 AR L MA G MG CY TA #5 BL ET LE 68 12 01 6 15 0 TO 78 SC Ac VE 18 -2 -2 00 TA 22 MINAYA ti TI 00 0- 0- .0 L 69 FE ve RA 11 20 20 00 CA R CE 30 11 12 RE NE TA 2 CH M PH AE 50 AR L 0 MA G MG CY TA #5 BL ET NC 68 01 01 3 30 0 TO 78 SC Ac AV 18 -1 -1 0. TA 47 MINAYA ti 00 8- 8- 00 L 65 FE ve TA 48 20 20 0 CA R TI 80 12 12 RE NE N 2 CH SO PH AE DI AR L UM MA G CY 80 #5 MG TA B ME 68 01 01 6 30 0 TO 78 SC Ac LO 38 -1 -1 0. TA 47 MINAYA ti XI 20 8- 8- 00 L 66 FE ve CA 05 20 20 0 CA R M 10 12 12 RE NE 15 5 CH PH AE MG AR L MA G TA CY BL ET #5 SI 68 11 01 4 30 0 TO 77 SC Ac MV 38 -0 -1 0. TA 81 MINAYA ti 20 2- 7- 00 L 52 FE ve TA 06 20 20 0 CA R TI 90 11 12 RE NE N 5 CH 80 PH AE AR L MG MA G CY TA BL #5 ET NO 00 01 01 1 60 0 TO 78 SC Ac RT 59 -0 -0 0. TA 37 MINAYA ti RI 15 9- 9- 00 L 63 FE ve PT 78 20 20 0 CA R YL 80 12 12 RE NE IN 1 CH E PH AE HC AR L L MA G 50 CY MG #5 CA P LI 00 09 12 11 30 0 TO 77 SC Ac SI 18 -0 -3 0. TA 30 MINAYA ti NO 50 7- 0- 00 L 88 FE ve NC 10 20 20 0 CA R IL 11 11 11 RE NE 0 CH 10 PH AE AR L MG MA G CY TA BL #5 ET AL 00 08 12 6 30 0 TO 77 KA Ac LO 59 -2 -3 0. TA 22 LF ti PU 15 6- 0- 00 L 63 ve RI 54 20 20 0 CA NO 40 11 11 RE NE L 5 NA 30 PH C 0 AR MG MA CY TA BL #5 ET LE 68 12 12 6 15 30 78 SC Ac VE 18 -2 -2 0. 22 MINAYA ti TI 00 0- 0- 00 69 FE ve RA 11 20 20 0 R CE 30 11 11 NE TA 2 CH M AE 50 L 0 G MG TA BL ET SI 68 11 12 4 30 30 77 SC Ac MV 38 -0 -0 .0 81 MINAYA ti 20 2- 7- 00 52 FE ve TA 06 20 20 R TI 90 11 11 NE N 5 CH 80 AE L MG G TA BL ET NO 00 11 12 1 60 30 77 SC Ac RT 59 -0 -0 .0 81 MINAYA ti RI 15 2- 7- 00 53 FE ve PT 78 20 20 R YL 80 11 11 NE IN 1 CH E AE HC L L G 50 MG CA P AL 00 08 11 6 30 30 77 KA Ac LO 59 -2 -2 .0 22 LF ti PU 15 6- 3 00 63 ve RI 54 20 20 NO 40 11 11 NE L 5 NA 30 C 0 MG TA BL ET LI 00 09 11 11 30 30 77 SC Ac SI 18 -0 -2 .0 30 MINAYA ti NO 50 7- 3 88 FE ve NC 10 20 20 R IL 11 11 11 NE 0 CH 10 AE L MG G TA BL ET LE 68 11 11 6 15 30 77 SC Ac VE 18 -1 -1 0. 96 MINAYA ti TI 00 58 FE ve RA 11 20 20 0 R CE 30 11 11 NE TA 2 CH M AE 50 L 0 G MG TA BL ET NO 00 11 11 1 60 30 77 SC Ac RT 59 -0 -0 .0 81 MINAYA ti RI 15 2 7 53 FE ve PT 78 20 20 R YL 80 11 11 NE IN 1 CH E AE HC L L G 50 MG CA P SI 68 11 11 4 30 30 77 SC Ac MV 38 -0 -0 .0 81 MINAYA ti 20 2- 2- 00 52 FE ve TA 06 20 20 R TI 90 11 11 NE N 5 CH 80 AE L MG G TA BL ET LI 00 09 10 11 30 30 77 SC Ac SI 18 -0 -2 .0 30 MINAYA ti NO 50 7 88 FE ve NC 10 20 20 R IL 11 11 11 NE 0 CH 10 AE L MG G TA BL ET LE 68 09 10 1 15 30 77 SC Ac VE 18 -1 -1 0. 40 MINAYA ti TI 00 99 FE ve RA 11 20 20 0 R CE 30 11 11 NE TA 2 CH M AE 50 L 0 G MG TA BL ET AC 64 10 10 3 90 90 77 SC Ac TO 76 -1 -1 .0 66 MINAYA ti S 40 4- 4- 02 FE ve 45 45 20 20 R 12 11 11 NE MG 4 CH AE TA L BL G ET TR 65 10 10 5 60 30 77 SC Ac AM 16 -1 -1 .0 66 MINAYA ti AD 20 4 13 FE ve OL 62 20 20 R 71 11 11 NE HC 1 CH L AE 50 L G MG TA BL ET AL 00 08 10 6 30 30 77 KA Ac LO 59 -2 -1 .0 22 LF ti PU 15 6- 3- 00 63 ve RI 54 20 20 NO 40 11 11 NE L 5 NA 30 C 0 MG TA BL ET NO 00 09 10 1 60 30 77 SC Ac RT 59 -0 -0 .0 27 MINAYA ti RI 15 2- 7- 00 87 FE ve PT 78 20 20 R YL 80 11 11 NE IN 1 CH E AE HC L L G 50 MG CA P SI 68 04 10 4 30 30 76 KA Ac MV 38 -0 -0 .0 08 LF ti 20 8- 00 95 ve TA 06 20 20 TI 90 11 11 NE N 5 NA 80 C MG TA BL ET LE 68 09 09 1 15 30 77 SC Ac VE 18 -1 -1 0. 40 MINAYA ti TI 00 9 99 FE ve RA 11 20 20 0 R CE 30 11 11 NE TA 2 CH M AE 50 L 0 G MG TA BL ET LI 00 09 09 11 30 30 77 SC Ac SI 18 -0 -0 .0 30 MINAYA ti NO 50 7 7 88 FE ve NC 10 20 20 R IL 11 11 11 NE 0 CH 10 AE L MG G TA BL ET NO 00 09 09 1 60 30 77 SC Ac RT 59 -0 -0 .0 27 MINAYA ti RI 15 2- 2- 00 87 FE ve PT 78 20 20 R YL 80 11 11 NE IN 1 CH E AE HC L L G 50 MG CA P AL 00 08 08 6 30 30 77 KA Ac LO 59 -2 -2 .0 22 LF ti PU 15 6- 6 00 63 ve RI 54 20 20 NO 40 11 11 NE L 5 NA 30 C 0 MG TA BL ET LE 68 07 08 1 15 30 76 KA Ac VE 18 -1 -1 0. 88 LF ti TI 00 5 00 68 ve RA 11 20 20 0 CE 30 11 11 NE TA 2 NA M C 50 0 MG TA BL ET NO 00 01 08 3 60 30 75 KA Ac RT 59 -2 -0 .0 42 LF ti RI 15 8- 2- 00 31 ve PT 78 20 20 YL 80 11 11 NE IN 1 NA E C HC L 50 MG CA P SI 68 04 08 4 30 30 76 KA Ac MV 38 -0 -0 .0 08 LF ti 20 8- 2 00 95 ve TA 06 20 20 TI 90 11 11 NE N 5 NA 80 C MG TA BL ET LI 00 04 07 3 30 30 76 SC Ac SI 18 -1 -2 .0 13 MINAYA ti NO 50 4- 8- 00 54 CK ve NC 10 20 20 IL 11 11 11 BR 0 IA 10 N MG TA BL ET LE 68 07 07 1 15 30 76 KA Ac VE 18 -1 -1 0. 88 LF ti TI 00 5- 5 00 68 ve RA 11 20 20 0 CE 30 11 11 NE TA 2 NA M C 50 0 MG TA BL ET AL 00 03 07 3 30 30 75 KA Ac LO 59 -2 -1 .0 94 LF ti PU 15 3- 3- 00 44 ve RI 54 20 20 NO 40 11 11 NE L 5 NA 30 C 0 MG TA BL ET NO 00 01 06 3 60 30 75 KA Ac RT 59 -2 -2 .0 42 LF ti RI 15 8 9 31 ve PT 78 20 20 YL 80 11 11 NE IN 1 NA E C HC L 50 MG CA P AC 00 06 06 0 60 30 76 KA Ac ET 40 -2 -2 .0 75 LF ti AM 60 8- 8- 00 38 ve IN 48 20 20 OP 41 11 11 NE HE 0 NA N- C CO D #3 TA BL ET SI 68 04 06 4 30 30 76 KA Ac MV 38 -0 -2 .0 08 LF ti 20 8- 0- 00 95 ve TA 06 20 20 TI 90 11 11 NE N 5 NA 80 C MG TA BL ET HY 00 06 06 1 30 [address] 17 -2 -2 .0 68 LF ti OC 22 0- 0- 00 50 ve HL 08 20 20 OR 38 11 11 NE OT 0 NA HI C AZ ID E 25 MG TA B LI 00 04 06 3 30 30 76 SC Ac SI 18 -1 -2 .0 13 MINAYA ti NO 50 4- 0- 00 54 CK ve NC 10 20 20 IL 11 11 11 BR 0 IA 10 N MG TA BL ET LE 68 05 06 1 15 30 76 KA Ac VE 18 -1 -1 0. 41 LF ti TI 00 7 6 00 34 ve RA 11 20 20 0 CE 30 11 11 NE TA 2 NA M C 50 0 MG TA BL ET NO 00 01 05 3 60 30 75 KA Ac RT 59 -2 -3 .0 42 LF ti RI 15 8- 1- 00 31 ve PT 78 20 20 YL 80 11 11 NE IN 1 NA E C HC L 50 MG CA P AL 00 03 05 3 30 30 75 KA Ac LO 59 -2 -3 .0 94 LF ti PU 15 3- 44 ve RI 54 20 20 NO 40 11 11 NE L 5 NA 30 C 0 MG TA BL ET SI 68 04 05 4 30 30 76 KA Ac MV 38 -0 -1 .0 08 LF ti 20 8 95 ve TA 06 20 20 TI 90 11 11 NE N 5 NA 80 C MG TA BL ET LE 68 05 05 1 15 30 76 KA Ac VE 18 -1 -1 0. 41 LF ti TI 00 34 ve RA 11 20 20 0 CE 30 11 11 NE TA 2 NA M C 50 0 MG TA BL ET LI 00 04 05 3 30 30 76 SC Ac SI 18 -1 -1 .0 13 MINAYA ti NO 50 4 54 CK ve NC 10 20 20 IL 11 11 11 BR 0 IA 10 N MG TA BL ET HY 00 12 05 1 30 [address] 17 -1 -0 .0 03 LF ti OC 22 4 95 ve HL 08 20 20 OR 38 10 11 NE OT 0 NA HI C AZ ID E 25 MG TA B AC 00 01 05 2 60 30 75 KA Ac ET 40 -3 -0 .0 43 LF ti AM 60 1- 4 00 70 ve IN 48 20 20 OP 41 11 11 NE HE 0 NA N- C CO D #3 TA BL ET NO 00 03 04 1 60 30 75 KA Ac RT 59 -2 -2 .0 93 LF ti RI 15 2 10 ve PT 78 20 20 YL 80 11 11 NE IN 1 NA E C HC L 50 MG CA P AL 00 03 04 3 30 30 75 KA Ac LO 59 -2 -1 .0 94 LF ti PU 15 3 00 44 ve RI 54 20 20 NO 40 11 11 NE L 5 NA 30 C 0 MG TA BL ET LE 68 03 04 1 15 30 75 KA Ac VE 18 -2 -1 0. 92 LF ti TI 00 1 8 43 ve RA 11 20 20 0 CE 30 11 11 NE TA 2 NA M C 50 0 MG TA BL ET LI 00 04 04 3 30 30 76 SC Ac SI 18 -1 -1 .0 13 MINAYA ti NO 50 4- 4- 00 54 CK ve NC 10 20 20 IL 11 11 11 BR 0 IA 10 N MG TA BL ET SI 68 04 04 4 30 30 76 KA Ac MV 38 -0 -0 .0 08 LF ti 20 8- 8 00 95 ve TA 06 20 20 TI 90 11 11 NE N 5 NA 80 C MG TA BL ET AL 00 03 03 3 30 30 75 KA Ac LO 59 -2 -2 .0 94 LF ti PU 15 3- 3 00 44 ve RI 54 20 20 NO 40 11 11 NE L 5 NA 30 C 0 MG TA BL ET NO 00 03 03 1 60 30 75 KA Ac RT 59 -2 -2 .0 93 LF ti RI 15 2- 2- 00 10 ve PT 78 20 20 YL 80 11 11 NE IN 1 NA E C HC L 50 MG CA P LE 68 03 03 1 15 30 75 KA Ac VE 18 -2 -2 0. 92 LF ti TI 00 43 ve RA 11 20 20 0 CE 30 11 11 NE TA 2 NA M C 50 0 MG TA BL ET LI 00 01 03 2 30 30 75 KA Ac SI 18 -1 -1 .0 27 LF ti NO 50 05 ve NC 10 20 20 IL 11 11 11 NE 0 NA 10 C MG TA BL ET NO 00 11 03 1 30 30 74 KA Ac RT 59 -0 -0 .0 73 LF ti RI 15 9 7 93 ve PT 78 20 20 YL 80 10 11 NE IN 1 NA E C HC L 50 MG CA P AC 00 01 02 2 60 30 75 KA Ac ET 40 -3 -2 .0 43 LF ti AM 60 70 ve IN 48 20 20 OP 41 11 11 NE HE 0 NA N- C CO D #3 TA BL ET AL 53 12 02 2 30 30 74 KA Ac LO 48 -0 -1 .0 95 LF ti PU 90 3- 6 06 ve RI 15 20 20 NO 71 10 11 NE L 0 NA 30 C 0 MG TA BL ET LE 68 01 02 1 15 30 75 KA Ac VE 18 -1 -1 0. 33 LF ti TI 00 8 6 36 ve RA 11 20 20 0 CE 30 11 11 NE TA 2 NA M C 50 0 MG TA BL ET LI 00 01 02 2 30 30 75 KA Ac SI 18 -1 -1 .0 27 LF ti NO 50 1- 4- 00 05 ve NC 10 20 20 IL 11 11 11 NE 0 NA 10 C MG TA BL ET AC 00 01 01 2 60 30 75 KA Ac ET 40 -3 -3 .0 43 LF ti AM 60 1- 1- 00 70 ve IN 48 20 20 OP 41 11 11 NE HE 0 NA N- C CO D #3 TA BL ET NO 00 01 01 3 60 30 75 KA Ac RT 59 -2 -2 .0 42 LF ti RI 15 8- 8- 00 31 ve PT 78 20 20 YL 80 11 11 NE IN 1 NA E C HC L 50 MG CA P HY 00 12 01 1 30 [address] 17 -1 -1 .0 03 LF ti OC 22 4 8 00 95 ve HL 08 20 20 OR 38 10 11 NE OT 0 NA HI C AZ ID E 25 MG TA B LE 68 01 01 1 15 30 75 KA Ac VE 18 -1 -1 0. 33 LF ti TI 00 8 36 ve RA 11 20 20 0 CE 30 11 11 NE TA 2 NA M C 50 0 MG TA BL ET SI 68 01 01 1 30 30 75 KA Ac MV 38 -1 -1 .0 33 LF ti 20 8 8- 00 37 ve TA 06 20 20 TI 90 11 11 NE N 5 NA 80 C MG TA BL ET NO 00 11 01 1 30 30 74 KA Ac RT 59 -0 -1 .0 73 LF ti RI 15 9- 3- 00 93 ve PT 78 20 20 YL 80 10 11 NE IN 1 NA E C HC L 50 MG CA P LI 00 01 01 2 30 30 75 KA Ac SI 18 -1 -1 .0 27 LF ti NO 50 1- 1- 00 05 ve NC 10 20 20 IL 11 11 11 NE 0 NA 10 C MG TA BL ET AL 00 12 01 2 30 30 74 KA Ac LO 59 -0 -1 .0 95 LF ti PU 15 3- 0- 00 06 ve RI 54 20 20 NO 40 10 11 NE L 5 NA 30 C 0 MG [...] 78 20 20 YL 80 10 10 NE IN 1 NA E C HC L 50 MG CA P LE 68 11 12 1 15 30 74 KA Ac VE 18 -1 -1 0. 77 LF ti TI 00 2 3 12 ve RA 11 20 20 0 CE 30 10 10 NE TA 2 NA M C 50 0 MG TA BL ET HY 00 10 12 1 30 [address] 17 -1 -0 .0 50 LF ti OC 22 3 9 00 20 ve HL 08 20 20 OR 38 10 10 NE OT 0 NA HI C AZ ID E 25 MG TA B LI 00 10 12 1 30 30 74 KA Ac SI 18 -1 -0 .0 50 LF ti NO 50 21 ve NC 10 20 20 IL 21 10 10 NE 0 NA 20 C MG TA BL ET AL 00 12 12 2 30 30 74 KA Ac LO 59 -0 -0 .0 95 LF ti PU 15 3 06 ve RI 54 20 20 NO 40 10 10 NE L 5 NA 30 C 0 MG TA BL ET AM 00 11 11 0 20 10 74 KA Ac OX 78 -2 -2 .0 89 LF ti IC 15 9 9 53 ve IL 06 20 20 LI 10 10 10 NE N 1 NA 87 C 5 MG TA BL ET IN 00 08 11 2 90 30 73 KA Ac DO 09 -0 -2 .0 92 LF ti ME 34 4- 2- 00 73 ve TH 03 20 20 AC 00 10 10 NE IN 5 NA C 50 MG CA PS UL E AC 00 11 11 0 60 30 74 KA Ac ET 40 -1 -1 .0 81 LF ti AM 60 7- 7- 00 33 ve IN 48 20 20 OP 41 10 10 NE HE 0 NA N- C CO D #3 TA BL ET NO 00 11 11 1 30 30 74 KA Ac RT 59 -1 -1 .0 79 LF ti RI 15 6- 6 00 63 ve PT 78 20 20 YL 80 10 10 NE IN 1 NA E C HC L 50 MG CA P LE 68 11 11 1 15 30 74 KA Ac VE 18 -1 -1 0. 77 LF ti TI 00 2 2 12 ve RA 11 20 20 0 CE 30 10 10 NE TA 2 NA M C 50 0 MG TA BL ET SI 68 10 11 1 30 30 74 KA Ac MV 38 -0 -0 .0 42 LF ti 20 5- 1- 00 30 ve TA 06 20 20 TI 90 10 10 NE N 5 NA 80 C MG TA BL ET HY 00 10 11 1 [address] 17 -1 -0 .0 50 LF ti OC 22 3- 1- 00 20 ve HL 08 20 20 OR 38 10 10 NE OT 0 NA HI C AZ ID E 25 MG TA B CA 68 09 10 2 60 30 74 KA Ac RV 38 -0 -2 .0 18 LF ti ED 20 7- 5- 00 41 ve IL 09 20 20 OL 30 10 10 NE 5 NA 6. C 25 MG TA BL ET NO 00 02 10 3 30 30 72 KA Ac RT 59 -0 -1 .0 41 LF ti RI 15 3- 8- 76 ve PT 78 20 20 YL 80 10 10 NE IN 1 NA E C HC L 50 MG CA P LE 68 08 10 3 12 30 74 KA Ac VE 18 -2 -1 0. 06 LF ti TI 00 0- 8- 08 ve RA 11 20 20 0 CE 30 10 10 NE TA 2 NA M C 50 0 MG TA BL ET CI 65 05 10 4 15 30 74 KA Ac TA 86 -2 -1 .0 07 LF ti LO 20 6- 3- 00 05 ve NC 00 20 20 AM 70 10 10 NE 5 NA HB C R 40 MG TA BL ET LI 00 05 10 0 28 28 74 KA Ac SI 18 -1 -1 .0 47 LF ti NO 50 0- 1- 00 15 ve NC 10 20 20 IL 21 10 10 NE 0 NA 20 C MG TA BL ET SI 68 10 10 1 30 30 74 KA Ac MV 38 -0 -0 .0 42 LF ti 20 5- 5- 00 30 ve TA 06 20 20 TI 90 10 10 NE N 5 NA 80 C MG TA BL ET HY 00 05 10 0 [address] 17 -1 -0 .0 41 LF ti OC 22 0- 4- 00 63 ve HL 08 20 20 OR 38 10 10 NE OT 0 NA HI C AZ ID E 25 MG TA B IN 00 08 10 2 90 30 73 KA Ac DO 09 -0 -0 .0 92 LF ti ME 34 4- 1- 00 73 ve TH 03 20 20 AC 00 10 10 NE IN 5 NA C 50 MG CA PS UL E AC 00 09 10 0 60 30 74 KA Ac ET 40 -1 -0 .0 27 LF ti AM 60 5- 1- 00 03 ve IN 48 20 20 OP 41 10 10 NE HE 0 NA N- C CO D #3 TA BL ET LE 68 08 09 3 12 30 74 KA Ac VE 18 -2 -2 0. 06 LF ti TI 00 0- 1- 00 08 ve RA 11 20 20 0 CE 31 10 10 NE TA 6 NA M C 50 0 MG TA BL ET NO 00 02 09 3 30 30 72 KA Ac RT 59 -0 -1 .0 41 LF ti RI 15 3- 0- 00 76 ve PT 78 20 20 YL 80 10 10 NE IN 1 NA E C HC L 50 MG CA P CA 68 09 09 2 60 30 74 KA Ac RV 38 -0 -0 .0 18 LF ti ED 20 7- 7- 00 41 ve IL 09 20 20 OL 30 10 10 NE 5 NA 6. C 25 MG TA BL ET SI 68 12 09 0 30 30 74 KA Ac MV 38 -3 -0 .0 15 LF ti 20 1- 2- 00 27 ve TA 06 20 20 TI 90 09 10 NE N 5 NA 80 C MG TA BL ET CI 65 08 08 4 15 30 74 KA Ac TA 16 -2 -2 .0 07 LF ti LO 20 3- 3- 00 05 ve NC 05 20 20 AM 45 10 10 NE 0 NA HB C R 40 MG TA BL ET AC 00 08 08 0 60 30 74 KA Ac ET 40 -2 -2 .0 06 LF ti AM 60 0- 0- 00 07 ve IN 48 20 20 OP 41 10 10 NE HE 0 NA N- C CO D #3 TA BL ET LE 68 08 08 3 12 30 74 KA Ac VE 18 -2 -2 0. 06 LF ti TI 00 0- 0- 00 08 ve RA 11 20 20 0 CE 31 10 10 NE TA 6 NA M C 50 0 MG TA BL ET IN 00 08 08 2 90 30 73 KA Ac DO 09 -0 -0 .0 92 LF ti ME 34 4- 4- 00 73 ve TH 03 20 20 AC 00 10 10 NE IN 1 NA C 50 MG CA PS UL E Immunization Name Date Rout CVX Reac Dose Comm Prov Is Faci e tion ent ider Refu lity Give sed n IIV4 09-[address] 7-20 RAFT SHEFALI VACC 16 TRO ABET H PRES PHYS RV ICIA FREE NS 0.5 ML FOR IM USE PPSV 04-[address] 23 1-20 RAFT SHEFALI VACC [...] DOS Code Location Performer Comment DIRECT [id number] [facility] RN [facility] HOME HOME HOME HEALTH/HO CARE CARE SPICE SET EA 15 MIN DIRECT G0299 [facility] RN 7 [facility] HOME HOME HOME HEALTH/HO CARE CARE SPICE SET EA 15 MIN DIRECT G0299 [facility]HO CARE CARE SPICE SET EA 15 MIN NONEMERGE A0130 [facility] 7 INC TRANSPORT TRANSPORT REGION 9 ATION CO ATION: Alexandru Vanegas VAN DIRECT G0299 [facility] RN [facility]/HO CARE CARE SPICE SET EA 15 MIN THER 35569 [facility] PROPH/DX 7 BARBARA BARBARA NJX EA SEQL IV HEALTHCAR HEALTHCAR PUSH E EDGE E EDGE SBST/DRUG FAC NONEMERGE A0130 [facility] 7 INC TRANSPORT TRANSPORT REGION 9 ATION CO ATION: Alexandru Vanegas VAN INJECTION J0131 [facility] 7 BARBARA BARBARA ACETAMINO PHEN 10 HEALTHCAR HEALTHCAR MG E EDGE E EDGE INJECTION J1642 [facility] HEPARIN 7 BARBARA BARBARA SODIUM PER 10 HEALTHCAR HEALTHCAR UNITS E EDGE E EDGE INJECTION J1650 [facility] 7 BARBARA BARBARA ENOXAPARI N SODIUM HEALTHCAR HEALTHCAR 10 MG E EDGE E EDGE THERAPEUT 38423 [facility] IC 7 BARBARA BARBARA PROPHYLAC TIC/DX HEALTHCAR HEALTHCAR INJECTION E EDGE E EDGE SUBQ/IM OBSERVATI 59027 [facility] ON CARE 7 BARBARA JR DISCHARGE PHYSICIAN MANAGEMEN S T POTASSIUM 51574 [facility] SERUM 7 BARBARA BARBARA PLASMA/WH OLE BLOOD HEALTHCAR [place] [address] [facility] MAGNESIUM 7 BARBARA BARBARA HEALTHCAR HEALTHCAR E EDGE E ED[place] [address] [facility] 7 BARBARA PHYS/QHP INITIAL PHYSICIAN 15 MINS S 5/> YRS MODERATE G0500 [facility] SEDAT 7 BARBARA BARBARA SRVC PROV SAME HEALTHCAR HEALTHCAR PHYS PERF E EDGE E EDGE [facility] 11953 [facility] DIS[facility] 7 BARBARA JR DAY MANAGEMEN PHYSICIAN T > 30 S MIN THERAPEUT 77207 [facility] IC 7 BARBARA BARBARA PROPHYLAC TIC/DX HEALTHCAR HEALTHCAR INJECTION E EDGE E EDGE SUBQ/IM MOD SED 48404 [facility] 7 BARBARA PHYS/QHP EACH ADDL PHYSICIAN 15 MINS S INJECTION J1650 [facility] 7 BARBARA BARBARA ENOXAPARI N SODIUM HEALTHCAR HEALTHCAR 10 MG E EDGE E EDGE INJECTION J2250 [facility] 7 BARBARA BARBARA MIDAZOLAM HCL PER HEALTHCAR HEALTHCAR 1 MG E EDGE E EDGE PREALBUMI 11603 [facility] N 7 BARBARA BARBARA HEALTHCAR HEALTHCAR E EDGE E EDGE INJECTION J0131 [facility] 7 BARBARA BARBARA ACETAMINO PHEN 10 HEALTHCAR HEALTHCAR MG E EDGE E EDGE EGD 37125 [facility] PERCUTANE 7 BARBARA OUS PLACEMENT PHYSICIAN S GASTROSTO MY TUBE THER 41347 [facility] PROPH/DX 7 BARBARARED JIMENEZ NJX EA SEQL IV HEALTHCAR HEALTHCAR PUSH E EDGE E EDGE SBST/DRUG FAC INJECTION J1200 [place] [address] BARBARA BARBARA DIPHENHYD RAMINE HEALTHCAR HEALTHCAR HCL UP TO E EDGE E EDGE 50 MG INJECTION J3010 [facility] FENTANYL 7 BARBARA BARBARA CITRATE 0.1 [place] [address] [facility] INFUSION 7 BARBARA BARBARA HYDRATION EACH HEALTHCAR HEALTHCAR [place] [address] [facility] INFUSION 7 BARBARA BARBARA HYDRATION EACH HEALTHCAR HEALTHCAR ADDITIONA E EDGE E EDGE L HOUR THER [address]86 [facility] PROPH/DX 7 BARBARAJOSAFAT JIMENEZ NJX EA SEQL IV HEALTHCAR HEALTHCAR PUSH E EDGE E EDGE SBST/DRUG FAC HOSPITAL G0378 [facility] OBSERVATI 7 BARBARA JIMENEZ ON SERVICE HEALTHCAR HEALTHCAR PER HOUR E EDGE E EDGE INITIAL 06876 [facility] INPATIENT 7 BARBARA CONSULT NEW/ESTAB PHYSICIAN PT 80 S MIN INJECTION J0131 [place] [address] BARBARA JIMENEZ ACETAMINO PHEN 10 HEALTHCAR HEALTHCAR MG E EDGE E EDGE INJECTION J1650 [place] [address] BARBARA BARBARA ENOXAPARI N SODIUM HEALTHCAR HEALTHCAR 10 MG E EDGE E EDGE THERAPEUT 60442 [facility] IC 7 BARBARASARAH JIMENEZ PROPHYLAC TIC/DX HEALTHCAR HEALTHCAR INJECTION E EDGE E EDGE SUBQ/IM SBSQ 84179 [place] [address] BARBARA JR CARE/DAY 25 PHYSICIAN MINUTES S AMBULANCE A0429 SHAI SHAI SERVICE 7 CO CO BLS AMBULANCE AMBULANCE EMERGENCY TAXIN TAXIN TRANSPORT THER 81527 [facility] PROPH/DX 7 BARBARA BARBARA NJX IV PUSH HEALTHCAR HEALTHCAR SINGLE/1S E EDGE E EDGE T SBST/DRUG GROUND A0425 SHAI SHAI MILEAGE 7 CO CO PER AMBULANCE AMBULANCE STATUTE TAXIN TAXIN MILE THERAPEUT 13398 [facility] IC 7 BARBARA BARBARA PROPHYLAC TIC/DX HEALTHCAR HEALTHCAR INJECTION E EDGE E EDGE SUBQ/IM INITIAL 23052 [facility] 7 [facility] CARE/DAY 50 PHYSICIAN MINUTES S INJECTION J0131 [facility] 7 BARBARA BARBARA ACETAMINO PHEN 10 HEALTHCAR HEALTHCAR MG E EDGE E EDGE INJECTION J2270 [facility] MORPHINE 7 BARBARA BARBARA SULFATE UP TO 10 HEALTH[place] [address] [facility] INFUSION 7 BARBARA BARBARA HYDRATION EACH HEALTHCAR HEALTHCAR ADDITIONA E EDGE E EDGE L HOUR NONEMERGE A0130 [facility] 7 INC TRANSPORT TRANSPORT REGION 9 ATION CO ATION: Alexandru WILLAMS WC ACCSS E0973 PATIENT PATIENT ADJUSTBL 7 AIDS INC AIDS INC HT DTACH ARMRST CMPL ASSMBL EA PWR K0823 PATIENT PATIENT GRP 2 STD 7 AIDS INC AIDS INC CAPTAINS CHAIR PT TO &=300 LBS CHIROPRAC 69942 [facility] TIC 7 CHIROPRA CHIROPRAC MANIPULAT TIC TIC [facility] [place] CENTER CENTER SPINAL 1-2 REGIONS NONEMERGE A0130 [facility] 7 INC TRANSPORT TRANSPORT REGION 9 ATION CO ATION: Alexandru WILLAMS PHYSICAL 26095 [facility] EVAL[facility] [place] COMPLEX 20 MINS NONEMERGE A0130 [facility] 7 INC TRANSPORT TRANSPORT REGION 9 ATION CO ATION: Alexandru WILLAMS NONEMERGE A0130 [facility] 7 INC TRANSPORT TRANSPORT REGION 9 ATION CO ATION: L MARYCRUZ Vanegas VAN NONEMERGE A0130 [facility] CAC [facility] NCY 7 INC COMMUNITY TRANSPORT REGION 9 ACTION_I ATION: MARYCRUZ Vanegas VAN ECG [address] ST JAJA ROUTINE 7 BARBARA ECG MED CTR W/LEAST 12 LDS I&[place] [address] INFUSION 7 BARBARA BARBARA HYDRATION EACH HEALTHCAR HEALTHCAR ADDITION[place] [address] LACTATE 7 BARBARA BARBARA HEALTHCAR HEALTHCAR E EDGE E EDGE RADIOLOGI [address] ST ST C EXAM 7 BARBARA BARBARA CHEST 2 VIEWS HEALTHCAR HEALTHCAR FRONTAL&L E EDGE E EDGE ATERAL BASIC [address] METABOLIC 7 BARBARA BARBARA PANEL CALCIUM HEALTHCAR HEALTHCAR TOTAL E EDGE E EDGE THER [address] PROPH/DX 7 BARBARA BARBARA NJX IV PUSH HEALTHCAR HEALTHCAR SINGLE/1S E EDGE E EDGE T SBST/DRUG INJECTION J1642 ST ST HEPARIN 7 BARBARA BARBARA SODIUM PER 10 HEALTHCAR HEALTH[place] [address] TROPONIN 7 BARBARA BARBARA QUANTITAT SURENDRA HEALTHCAR HEALTHCAR E EDGE E EDGE BLOOD [address] COUNT 7 BARBARA BARBARA COMPLETE AUTO&AUTO HEALTHCAR HEALTHCAR DIFRNTL E EDGE E EDGE WBC ECG [address] ROUTINE 7 BARBARA BARBARA ECG W/LEAST HEALTHCAR HEALTHCAR 12 LDS E EDGE E EDGE TRCG ONLY W/O I&R COLLECTIO [address] N VENOUS 7 BARBARA BARBARA BLOOD VENIPUNCT HEALTHCAR HEALTHCAR URE E EDGE E EDGE NONEMERGE A0130 [facility] 7 INC TRANSPORT TRANSPORT REGION 9 ATION CO ATION: L MARYCRUZ Vanegas VAN RADIOLOGI 63123 RADIOLOGY DOERGER C EXAM 7 CHEST 2 ASSOCIATE VIEWS S OF NOTH FRONTAL&L ATERAL GROUND A0425 SHAI SHAI MILEAGE 7 CO CO PER AMBULANCE AMBULANCE STATUTE TAXIN TAXIN MILE AMB A0427 SHAI SHAI SERVICE 7 CO CO ALS AMBULANCE AMBULANCE EMERGENCY TAXIN TAXIN TRANSPORT LEVEL 1 IRRIGAJ 94049 [facility] IMPLNTD 7 [facility] VENOUS ACCESS HEALTHCAR HEALTHCAR DRUG E EDGE E EDGE DELIVERY SYST NONEMERGE A0130 [facility] 7 INC TRANSPORT TRANSPORT REGION 9 ATION CO ATION: Alexandru WILLAMS NONEMERGE A0130 [facility] 7 INC TRANSPORT TRANSPORT REGION 9 ATION CO ATION: Alexandru WILLAMS LIPID 56750 [facility] PANEL 7 [facility] HEALTHCAR HEALTHCAR E EDGE E EDGE HEPATIC 41891 [facility] FUNCTION 7 [facility] PANEL HEALTHCAR HEALTHCAR E EDGE E EDGE HEPATITIS G0472 [facility] C ABO SC 7 [facility] IND HIGH RISK&OTH HEALTHCAR HEALTHCAR CVRD E EDGE E EDGE INDIC COLLECTIO 82576 [facility] N VENOUS 7 [facility] BLOOD VENIPUNCT HEALTHCAR HEALTHCAR URE E EDGE E EDGE IRRIGAJ 96490 [facility] IMPLNTD 7 [facility] VENOUS ACCESS HEALTHCAR HEALTHCAR DRUG E EDGE E EDGE DELIVERY SYST BLOOD 20597 [facility] COUNT 7 [facility] COMPLETE AUTO&AUTO HEALTHCAR HEALTHCAR DIFRNTL E EDGE E EDGE WBC NONEMERGE A0130 [facility] 7 INC TRANSPORT TRANSPORT REGION 9 ATION CO ATION: Alexandru WILLAMS COMPREHEN 73607 [facility] SIVE 7 [facility] METABOLIC PANEL HEALTHCAR HEALTHCAR E EDGE E EDGE EGD 59286 [facility] PERCUTANE 7 [facility] OUS PLACEMENT HEALTHCAR HEALTHCAR E EDGE E EDGE GASTROSTO MY TUBE NONEMERGE A0130 [facility] 7 INC TRANSPORT TRANSPORT REGION 9 ATION CO ATION: Alexandru Vanegas VAN INJECTION J0295 ST ST AMPCLLN 7 BARBARA BARBARA SODIUM/JANE LBACTAM HEALTHCAR HEALTHCAR SODIUM-1. E EDGE E EDGE [address] 7 BARBARA BARBARA MIDAZOLAM HCL PER HEALTHCAR HEALTHCAR 1 MG E EDGE E EDGE INJECTION J01[address] ST [address] 7 BARBARA BARBARA ACETAMINO PHEN 10 HEALTHCAR HEALTHCAR MG E EDGE E EDGE ANES 90213 ANESTHESI CAMILLI UPPER GI 7 A GROUP ENDOSCOPY PRACTICE PROXIMAL TO DUODENUM NONEMERGE A0130 [facility] 7 INC TRANSPORT TRANSPORT REGION 9 ATION CO ATION: Alexandru WILLAMS NONEMERGE A0130 [facility] 6 INC TRANSPORT TRANSPORT REGION 9 ATION CO ATION: Alexandru WILLAMS NONEMERGE A0130 [facility] 6 INC TRANSPORT TRANSPORT REGION 9 ATION CO ATION: Alexandru Vanegas VAN MOTION [address] FLUOR 6 BARBARA BARBARA EVAL MED CTR MED CTR SWLNG 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 ST 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 ST FUNCJ C/[place] [address] SWALLOWIN 6 BARBARA BARBARA G MED CTR MED CTR DYSFUNCTI 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 ST 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 ST ON&/ORAL FUNCJ FEEDING SWALLOWIN [address] G FUNCJ 6 BARBARA BARBARA W/CINERAD MED CTR MED CTR IOGRAPY/V 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 ST 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 ST IDRADIOG CT SOFT 03776 RADIOLOGY WELLS SEA TISSUE 6 NECK ASSOCIATE W/CONTRAS S OF NOTH T MATERIAL CT THORAX 46083 RADIOLOGY TONY 6 NORA W/CONTRAS ASSOCIATE T S OF NOTH MATERIAL INJECTION J1642 ST ST HEPARIN 6 BARBARA BARBARA SODIUM MED CTR MED CTR PER 10 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 ST 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 ST UNITS CREATININ [address] E BLOOD 6 BARBARA BARBARA MED CTR MED CTR 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 ST 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 ST LOCM Q9967 ST ST 300-399 6 BARBARA BARBARA MG/ML MED CTR MED CTR IODINE 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 ST [facility] ST CONCENTRA TION PER [place] [address] [place] [facility] PROPH/DX 6 [facility] NJX IV INC INC PUSH SINGLE/1S T SBST/DRUG AMBULANCE A0429 SHAI SHAI SERVICE 6 CO CO BLS AMBULANCE AMBULANCE EMERGENCY TAXIN TAXIN TRANSPORT GROUND A0425 SHAI SHAI MILEAGE 6 CO CO PER AMBULANCE AMBULANCE STATUTE TAXIN TAXIN MILE DRUG TEST G0481 [place] [facility] DEFINITV [address] ID INC INC METH P DAY 8-14 [place] [address] [place] [facility] TROPONIN 6 [facility] QUANTITAT INC INC SURENDRA BLOOD 19494 [place] [facility] COUNT 6 [facility] COMPLETE INC INC AUTO&AUTO DIFRNTL WBC URNLS DIP 38213 [place] [facility] 6 [facility] STICK/TAB INC INC LET REAGENT AUTO MICROSCOP Y RADIOLOGI 15726 [place] [facility] C 6 MEDICAL EXAMINATI IMAGING [place] [address] [place] [facility] HEAD/BRAI 6 MEDICAL N W/O IMAGING CONTRAST ASS MATERIAL CREATINE 17015 [place] [facility] KINASE MB 6 [facility] FRACTION INC INC ONLY DRUG 44789 [place] [facility] SCREEN 6 [facility] QUANTITAT INC INC SURENDRA LEVETIRAC ETAM COMPREHEN 53606 [place] [facility] SIVE 6 [facility] METABOLIC INC INC PANEL CREATINE 28133 [place] [facility] KINASE 6 [facility] TOTAL INC INC HOSPITAL G0463 ST ST OUTPATIEN 6 BARBARA BARBARA T CLIN MED CTR MED CTR VISIT 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 ST [facility] ST ASSESS & MGMT PT NONEMERGE A0130 [facility] KERRY DUMONT NCY 6 INC TRANSPORT TRANSPORT REGION 9 ATION CO ATION: L MARYCRUZ WILLAMS NONEMERGE A0130 [facility] 6 INC TRANSPORT TRANSPORT REGION 9 ATION CO ATION: Alexandru WILLAMS REPR/SRVC [id number] PATIENT PATIENT DME NOT 6 AIDS INC AIDS INC O2 RQR TECH CMPNT PER 15 MINS PWR WC E2361 PATIENT PATIENT ACSS 22NF 6 AIDS INC AIDS INC SEALED LEAD ACID BATTRY EA NONEMERGE A0130 [facility] 6 INC TRANSPORT TRANSPORT REGION 9 ATION CO ATION: Alexandru WILLAMS NONEMERGE A0130 [facility] 6 INC TRANSPORT TRANSPORT REGION 9 ATION CO ATION: Alexandru WILLAMS IRRIGAJ [address] IMPLNTD 6 BARBARA BARBARA VENOUS MED CTR MED CTR ACCESS 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 ST 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 ST DRUG DELIVERY SYST INJECTION J1642 ST ST HEPARIN 6 BARBARA BARBARA SODIUM MED CTR MED CTR PER 10 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 ST 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 ST UNITS LARYNGOSC 64806 HEAD & KEMPINERS OPY 6 NECK JAM FLEXIBLE SURGERY DIAGNOSTI ASSOC C NONEMERGE A0130 [facility] 6 INC TRANSPORT TRANSPORT REGION 9 ATION CO ATION: Alexandru WILLAMS NONEMERGE A0130 [facility] 6 INC TRANSPORT TRANSPORT REGION 9 ATION CO ATION: Alexandru WILLAMS IIV4 VACC [address] [facility] PRESRV 6 BARBARA TRO FREE 0.5 ML FOR IM PHYSICIAN USE S IM ADM [address] [facility] PRQ ID 6 BARBARA TRO SUBQ/IM NJXS 1 PHYSICIAN VACCINE S NONEMERGE A0130 [facility] 6 INC TRANSPORT TRANSPORT REGION 9 ATION CO ATION: Alexandru WILLAMS NONEMERGE A0130 [facility] 6 INC TRANSPORT TRANSPORT REGION 9 ATION CO ATION: Alexandru WILLAMS HEPATIC [address] FUNCTION 6 BARBARA BARBARA PANEL MED CTR MED CTR 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 ST 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 ST LIPID [address] PANEL 6 [facility] CTR 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 ST 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 ST NONEMERGE A0130 [facility]Y [...] 9 ATION CO ATION: Alexandru WILLAMS ANES 22158 ANESTHESI MUCENSKI ESOPH 6 A GROUP CAT THYRD PRACTICE LARYNX TRACH & LYMPH NECK 1YR LARYNGOSC 61183 HEAD & KEMPINERS OPY W/WO 6 NECK TRACHEOSC SURGERY OPY DX ASSOC EXCEPT NONEMERGE A0130 [facility] 6 INC TRANSPORT TRANSPORT REGION 9 ATION CO ATION: Alexandru WILLAMS NONEMERGE A0130 [facility] 6 INC TRANSPORT TRANSPORT REGION 9 ATION CO ATION: Alexandru WILLAMS ECG [address] MCDANNOLD ROUTINE [address] ECG MED CTR W/LEAST 12 LDS I&R ONLY NONEMERGE A0130 [facility] 6 INC TRANSPORT TRANSPORT REGION 9 ATION CO ATION: Alexandru WILLAMS PPSV23 [address] [facility] VACCINE 2 6 BARBARA TRO YRS OR OLDER FOR PHYSICIAN SUBQ/IM S USE LIPID [address] PANEL 6 BARBARA BARBARA MED CTR MED CTR 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 ST 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 ST HEPATIC [address] FUNCTION 6 BARBARA BARBARA PANEL MED CTR MED CTR 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 ST 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 ST IM ADM [address]0836 [facility] PRQ ID 6 BARBARA TRO SUBQ/IM NJXS 1 PHYSICIAN VACCINE S NONEMERGE A0130 [facility] 6 INC TRANSPORT TRANSPORT REGION 9 ATION CO ATION: Alexandru WILLAMS NONEMERGE A0130 [facility] 6 INC TRANSPORT TRANSPORT REGION 9 ATION CO ATION: Alexandru WILLAMS MOTION [address] FLUOR 6 BARBARA BARBARA EVAL MED CTR MED CTR SWLNG 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 ST 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 ST FUNCJ C/V REC SWALLOWIN [address] G FUNCJ 6 BARBARA BARBARA W/CINERAD MED CTR MED CTR IOGRAPY/V 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 ST 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 ST IDRADIOG CT SOFT [address] TISSUE 6 BARBARA BARBARA NECK MED CTR MED CTR W/CONTRAS 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 ST 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 ST T MATERIAL CT THORAX [address] 6 BARBARA BARBARA W/CONTRAS MED CTR MED CTR T 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 ST 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 ST MATERIAL NONEMERGE A0130 [facility] 6 INC TRANSPORT TRANSPORT REGION 9 ATION CO ATION: Alexandru WILLAMS INJECTION J1642 ST ST HEPARIN 6 BARBARA BARBARA SODIUM MED CTR MED CTR PER 10 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 ST 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 ST UNITS LOCM Q9967 ST ST 300-399 6 BARBARA BARBARA MG/ML MED CTR MED CTR IODINE 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 ST 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 ST CONCENTRA TION PER ML NONEMERGE A0130 [facility] 6 INC TRANSPORT TRANSPORT REGION 9 ATION CO ATION: Alexandru WILLAMS NONEMERGE A0130 [facility] 6 INC TRANSPORT TRANSPORT REGION 9 ATION CO ATION: Alexandru WILLAMS COMPRE 12788 HEAD & BATTA BROWN AUDIOMETR 6 NECK Y SURGERY THRESHOLD ASSOC EVAL SP RECOGNIJ TYMPANOME 46009 HEAD & BATTA BROWN TRY 6 NECK SURGERY ASSOC LARYNGOSC 46125 HEAD & KEMPINERS OPY 6 NECK JAM FLEXIBLE SURGERY DIAGNOSTI ASSOC C NONEMERGE A0130 [facility] 6 INC TRANSPORT TRANSPORT REGION 9 ATION CO ATION: Alexandru WILLAMS NONEMERGE A0130 [facility] 6 INC TRANSPORT TRANSPORT REGION 9 ATION CO ATION: Alexandru WILLAMS RADIOLOGI [address] C EXAM 6 ABRBARA BARBARA CHEST 2 MED CTR MED CTR VIEWS 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 ST 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 ST FRONTAL&L ATERAL NONEMERGE A0130 [facility] 6 INC TRANSPORT TRANSPORT REGION 9 ATION CO ATION: Alexandru WILLAMS NONEMERGE A0130 [facility] 6 INC TRANSPORT TRANSPORT REGION 9 ATION CO ATION: Alexandru WILLAMS COMPREHEN 59694 ONCOLOGY CALLI SIVE 6 HEMATOLOG LAW METABOLIC Y CARE, PANEL IN BLOOD 70588 ONCOLOGY CALLI COUNT 6 HEMATOLOG LAW COMPLETE Y CARE, AUTO&AUTO IN DIFRNTL WBC COLLECTIO 26723 ONCOLOGY CALLI N 6 HEMATOLOG LAW CAPILLARY Y CARE, BLOOD IN SPECIMEN DETERMINA [address], REFRACTIV OD, PSC E STATE NONEMERGE A0130 [facility] 5 INC TRANSPORT TRANSPORT REGION 9 ATION CO ATION: Alexandru WILLAMS OPHTH [id number] 5 [address], XM&EVAL OD, PSC COMPRHNSV ESTAB PT 1/> ADLT SZD [id number] PERSONAL PERSONAL DISPBL 5 TOUCH TOUCH INCONT HOME INTERMEDIATE CARE PROD OF OF UNDWEAR XTRA LG EA NONEMERGE A0130 [facility] 5 INC TRANSPORT TRANSPORT REGION 9 ATION CO ATION: Alexandru WILLAMS IRRIGAJ 10668 ONCOLOGY EUGENIA MICAH IMPLNTD 5 HEMATOLOG VENOUS Y CARE, ACCESS IN DRUG DELIVERY SYST NONEMERGE A0130 [facility] 5 INC TRANSPORT TRANSPORT REGION 9 ATION CO ATION: Alexandru WILLAMS REMOVAL 03052 HEAD & KEMPINERS IMPACTED 5 NECK JAM CERUMEN SURGERY INSTRUMEN ASSOC TATION UNILAT LARYNGOSC 78845 HEAD & KEMPINERS OPY 5 NECK JAM FLEXIBLE SURGERY DIAGNOSTI ASSOC C NONEMERGE A0130 [facility] 5 INC TRANSPORT TRANSPORT REGION 9 ATION CO ATION: Alexandru WILLAMS NONEMERGE A0130 [facility] 5 INC TRANSPORT TRANSPORT REGION 9 ATION [place]: [place] [address] SURG 5 [facility]BAR[facility]IMENEZ PATHOLOGY MED CTR MED CTR 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 ST 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 ST GROSS&[place] [address] W/RMVL 5 BARBARA JIMENEZ OF [...] REGION 9 ATION CO ATION: Alexandru WILLAMS IRRIGAApolinar 43420 ONCOLOGY CALLI IMPLNTD 5 HEMATOLOG LAW VENOUS Y CARE, ACCESS IN DRUG DELIVERY SYST ADLT SZD T4528 PERSONAL PERSONAL DISPBL 5 TOUCH TOUCH INCONT HOME INTERMEDIATE CARE PROD OF OF UNDWEAR XTRA LG EA ADLT SZD T4528 PERSONAL PERSONAL DISPBL 5 TOUCH TOUCH INCONT HOME INTERMEDIATE CARE PROD OF OF UNDWEAR XTRA LG EA IRRIGAJ 42224 ONCOLOGY EUGENIA MICAH IMPLNTD 5 HEMATOLOG VENOUS Y CARE, ACCESS IN DRUG DELIVERY SYST NONEMERGE A0130 [facility] 5 INC TRANSPORT TRANSPORT REGION 9 ATION CO ATION: Alexandru WILLAMS LARYNGOSC 70789 HEAD & KEMPINERS OPY 5 NECK JAM FLEXIBLE SURGERY DIAGNOSTI ASSOC C NONEMERGE A0130 [facility] 5 INC TRANSPORT TRANSPORT REGION 9 ATION CO ATION: Alexandru WILLAMS RADIOLOGI [address] C EXAM 5 BARBARA BARBARA CHEST 2 MED CTR MED CTR VIEWS 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 ST 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 ST FRONTAL&L ATERAL RADEX [address] FOOT 5 BARBARA BARBARA COMPLETE MED CTR MED CTR MINIMUM 3 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 ST 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 ST VIEWS NONEMERGE A0130 [facility] 5 INC TRANSPORT TRANSPORT REGION 9 ATION CO ATION: Alexandru WILLAMS NONEMERGE A0130 LKLP CAC [facility] NCY 5 INC TRANSPORT TRANSPORT REGION 9 ATION CO ATION: Alexandru WILLAMS ADLT SZD [id number] PERSONAL PERSONAL DISPBL 5 TOUCH TOUCH INCONT HOME INTERMEDIATE CARE PROD OF OF UNDWEAR XTRA LG EA NONEMERGE A0130 LKLP CAC [facility] NCY 5 INC TRANSPORT TRANSPORT REGION 9 ATION CO ATION: Alexandru WILLAMS PWR WC [id number] PATIENT PATIENT ACSS 22NF 5 AIDS INC AIDS INC SEALED LEAD ACID BATTRY EA REPR/SRVC [id number] PATIENT PATIENT DME NOT 5 AIDS INC AIDS INC O2 RQR TECH CMPNT PER 15 MINS COMPREHEN 59713 ONCOLOGY CALLI SIVE 5 HEMATOLOG LAW METABOLIC Y CARE, PANEL IN BLOOD 85130 ONCOLOGY CALLI COUNT 5 HEMATOLOG LAW COMPLETE Y CARE, AUTO&AUTO IN DIFRNTL WBC NONEMERGE A0130 LKLP CAC [facility] NC[facility] 5 INC TRANSPORT TRANSPORT REGION 9 ATION CO ATION: Alexandru WILLAMS NONEMERGE A0130 LKLP CAC [facility] NCY 5 INC TRANSPORT TRANSPORT REGION 9 ATION CO ATION: Alexandru WILLAMS ADLT SZD T4528 PERSONAL PERSONAL DISPBL 5 TOUCH TOUCH INCONT HOME INTERMEDIATE CARE PROD [place] [address] IMAGING [address] MED CTR ATTENUATI 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 ST 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 ST ON SKULL BASE MID-THIGH NONEMERGE A0130 LKLP CAC [facility] NCY 5 INC TRANSPORT TRANSPORT REGION 9 ATION CO ATION: Alexandru WILLAMS GLUC BLD [address] GLUC MNTR 5 BARBARA BARBARA DEV MED CTR MED CTR CLEARED 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 ST 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 ST FDA SPEC HOME USE NONEMERGE A0130 LKLP CAC [facility] NCY 5 INC TRANSPORT TRANSPORT REGION 9 ATION CO ATION: Alexandru MORRIS 55787 ONCOLOGY [place] IMPLNTD 5 HEMATOLOG N ISAIAH VENOUS Y CARE, ACCESS IN DRUG DELIVERY SYST NONEMERGE A0130 LKLP CAC [facility] NC[facility] 5 INC TRANSPORT TRANSPORT REGION 9 ATION CO ATION: Alexandru WILLAMS ADLT SZD T4528 PERSONAL PERSONAL DISPBL 5 TOUCH TOUCH INCONT HOME INTERMEDIATE CARE PROD OF OF UNDWEAR XTRA LG EA ADLT SZD T4528 PERSONAL PERSONAL DISPBL 5 TOUCH TOUCH INCONT HOME INTERMEDIATE CARE PROD OF OF UNDWEAR XTRA LG EA NONEMERGE A0130 LKLP CAC [facility] NCY 5 INC TRANSPORT TRANSPORT REGION 9 ATION CO ATION: Alexandru WILLAMS NONEMERGE A0130 LKLP CAC [facility] 5 INC TRANSPORT TRANSPORT REGION 9 ATION CO ATION: Alexandru WILLAMS BLOOD [address] COUNT 5 BARBARA BARBARA COMPLETE MED CTR MED CTR 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 ST COMPREHEN [address] SIVE 5 BARBARA BARBARA METABOLIC MED CTR MED CTR 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 ST W/ID ISOLATES RADEX [address] [place] [facility]UM[facility] 4 [facility] MINIMUM 2 [place] [address] [facility] PETTEY HUMERAL 4 PHYSICIAN JAM SHAFT S GROUP FRACTURE W/O MANIPULAT ION CT SOFT 50138 RADIOLOGY AGOSTO BYR TISSUE 4 NECK ASSOCIATE W/CONTRAS S OF [facility] T MATERIAL NONEMERGE A0130 LKLP CAC [facility] NCY 4 INC TRANSPORT TRANSPORT REGION 9 ATION CO ATION: Alexandru WILLAMS NONEMERGE A0130 LKLP CAC [facility] 4 INC TRANSPORT TRANSPORT REGION 9 ATION CO ATION: Alexandru WILLAMS SHOULDER L3650 ADVANCED ADVANCED ORTHOSIS 4 TECHNOLOG TECHNOLOG FIG 8 IES INC IES INC ABDUCT RESTRAINE R PREFAB RADEX [address] SHOULDER 4 BARBARA BARBARA COMPLETE MED CTR MED CTR MINIMUM 2 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 ST 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 ST VIEWS NONEMERGE A0130 LKLP CAC [facility] NCY 4 INC TRANSPORT TRANSPORT REGION 9 ATION CO ATION: Alexandru MARYCRUZ WILLAMS NONEMERGE A0130 LKLP CAC [facility] NCY 4 INC TRANSPORT TRANSPORT REGION 9 ATION CO ATION: Alexandru Vanegas ЕКАТЕИРНА BLOOD [address] COUNT 4 BARBARA JIMENEZ COMPLETE MED CTR MED CTR AUTO&AUTO 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 ST 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 ST DIFRNTL WBC COMPREHEN [address] SIVE 4 P & S SURGERY CENTERZABETH METABOLIC MED CTR MED CTR PANEL 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 ST 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 ST COLLECTIO [address] ST SCHACK N VENOUS 4 BARBARA DENIA BLOOD VENIPUNCT PHYSICIAN WHITNEY S ENTRAL F B4152 PERSONAL PERSONAL NUTRITION 4 TOUCH TOUCH CMPL LESLIE HOME INTERMEDIATE CARE DENSE OF OF INTACT NUTRNTS NONEMERGE A0130 LKLP CAC [facility] 4 INC [facility]SP[facility]: Alexandru MARYRCUZ WILLAMS DETERMINA [address], REFRACTIV OD, PSC E STATE ADLT SZD T4528 PERSONAL PERSONAL DISPBL 4 TOUCH TOUCH INCONT HOME INTERMEDIATE CARE PROD OF OF UNDWEAR XTRA LG EA OPHTH [address], XM&EVAL OD, PSC COMPRHNSV ESTAB PT 1/> NURSING 91770 [facility] F[facility] 4 MHA MHA DISCHARGE MANAGEMEN T 30 MINUTES NONEMERG A0120 LKLP CAC LKLP TRNSPRT: 4 INC [facility] REGION 9 N MTN AREA/OTH SYS SBSQ 33200 [facility] NURSING 4 MHA MHA FACIL CARE/DAY MINOR COMPLJ 15 MIN LARYNGOSC 61133 HEAD & KEMPINERS OPY 4 NECK JAM FLEXIBLE SURGERY DIAGNOSTI ASSOC C NONEMERG A0120 LKLP CAC LKLP TRNSPRT: 4 [facility] MINI-BUS REGION 9 N MTN AREA/OTH SYS NONEMERGE A0130 LKLP CAC LKLP NCY 4 INC COMM[facility]ITY [facility] TRANSPORT REGION 9 ACTION_I ATION: MARYCRUZ WILLAMS CONTINUIN [address] G MEDICAL 4 BARBARA BARBARA PHYSICS MED CTR MED CTR CONSLTJ 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 ST 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 ST NC WK RADIATION 63566 ONCOLOGY MORENO PRA 4 HEMATOLOG TREATMENT Y CARE, IN MANAGEMEN [place] [address] [place] [address] GUIDANCE 4 BARBARA BARBARA RADIATION MED CTR MED CTR THERAPY 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 ST 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 ST FLDS PLACEMENT NTSTY [address] MODUL 4 BARBARA BARBARA DLVR MED CTR MED CTR 1/MANAGER RESIDENTIAL 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 ST 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 ST FLDS/ARCS [place] SESSION NTSTY [address] MODUL 4 BARBARA BARBARA DLVR MED CTR MED CTR 1/MANAGER RESIDENTIAL 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 ST 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 ST FLDS/[place] [address] GUIDANCE 4 BARBARA BARBARA RADIATION MED CTR MED CTR THERAPY 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 ST 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 ST FLDS PLACEMENT NONEMERGE A0130 LKLP CAC LKLP NCY [facility] TRANSPORT REGION 9 ACTION_I ATION: MARYCRUZ WILLAMS NONEMERGE A0130 LKLP CAC LKLP NCY 4 [facility] TRANSPORT REGION 9 ACTION_[place]: [place] [address] GUIDANCE 4 BARBARA BARBARA RADIATION MED CTR MED CTR THERAPY 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 ST 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 ST FLDS PLACEMENT NTSTY [address] MODUL 4 BARBARA BARBRAA DLVR MED CTR MED CTR 1/MANAGER RESIDENTIAL 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 ST 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 ST FLDS/ARCS [place] SESSION NTSTY [address] MODUL 4 BARBARA BARBARA DLVR MED CTR MED CTR 1/MANAGER RESIDENTIAL 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 ST 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 ST FLDS/[place] [address] GUIDANCE 4 BARBARA BARBARA RADIATION MED CTR MED CTR THERAPY 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 ST 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 ST FLDS PLACEMENT COLLECTIO 82908 ONCOLOGY CALLI N 4 HEMATOLOG LAW CAPILLARY Y CARE, BLOOD IN SPECIMEN BLOOD 38138 ONCOLOGY CALLI COUNT 4 HEMATOLOG LAW COMPLETE Y CARE, AUTO&AUTO IN DIFRNTL WBC THERAPEUT [address] IC 4 BARBARA BARBARA INJECTION MED CTR MED CTR IV PUSH 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 ST 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 ST EACH NEW DRUG CHEMOTHER [address] APY ADMN 4 BARBARA BARBARA IV MED CTR MED CTR INFUSION 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 ST 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 ST TQ EA HR CONTINUIN [address] ST ST G MEDICAL 4 BARBARA BARBARA PHYSICS MED CTR MED CTR CONSLTJ 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 ST 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 [address] ST INFUSION 4 BARBARA BARBARA THER MED CTR MED CTR PROPH 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 ST 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 ST ADDL SEQUENTIA L TO [address] ADMN IV 4 BARBARA BARBARA NFS TQ UP MED CTR MED CTR 1 HR 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 ST 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 ST 1/ SBST/DRUG SBSQ 41386 J[facility]I JIBRINI NURSING 4 MHA MHA FACIL CARE/DAY NEW PROBLEM 25 MIN NONEMERGE A0130 LKLP CAC LKLP NCY 4 INC COMMUNITY TRANSPORT REGION 9 ACTION_I [place]: [place] [address] GUIDANCE 4 BARBARA BARBARA RADIATION MED CTR MED CTR THERAPY 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 ST 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 ST FLDS PLACEMENT NTSTY [address] MODUL 4 BARBARA BABRARA DLVR MED CTR MED CTR 1/MANAGER RESIDENTIAL 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 ST 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 ST FLDS/ARCS [place] SESSION NTSTY [address] MODUL 4 BARBARA BARBARA DLVR MED CTR MED CTR 1/MANAGER RESIDENTIAL 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 ST 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 ST FLDS/[place] [address] GUIDANCE 4 BARBARA BARBARA RADIATION MED CTR MED CTR THERAPY 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 ST 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 ST FLDS PLACEMENT NONEMERGE A0130 LKLP CAC LKLP NCY 4 INC COMMUNITY TRANSPORT REGION 9 ACTION_I ATION: MARYCRUZ Vanegas VAN RADIATION 47235 ONCOLOGY [place] PRA 4 HEMATOLOG TREATMENT Y CARE, IN MANAGEMEN T 5 TREATMENT S CONTINUIN [address] G MEDICAL 4 BARBARA BARBARA PHYSICS MED CTR MED CTR CONSLTJ 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 ST 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 ST NC WK NONEMERGE A0130 LKLP CAC LKLP NCY 4 INC COMMUNITY TRANSPORT REGION 9 ACTION_[place]: [place] [address] ONCOLOGY MINDA GUIDANCE 4 HEMATOLOG JANNA RADIATION Y CARE, THERAPY IN FLDS PLACEMENT NTSTY [address] MODUL 4 BARBARA BARBARA DLVR MED CTR MED CTR 1/MANAGER RESIDENTIAL 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 ST 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 ST FLDS/ARCS [place] SESSION SBSQ 80199 J[facility]I J[facility]I NURSING 4 MHA MHA FACIL CARE/DAY NEW PROBLEM 25 MIN NONEMERGE A0130 LKLP CAC LKLP NCY 4 INC COMMUNITY TRANSPORT REGION 9 ACTION_I ATION: MARYCRUZ WILLAMS NTSTY [address] MODUL 4 BARBARA BARBARA DLVR MED CTR MED CTR 1/MANAGER RESIDENTIAL 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 ST 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 ST FLDS/[place] [address] GUIDANCE 4 BARBARA BARBARA RADIATION MED CTR MED CTR THERAPY 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 ST 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 [address] GUIDANCE 4 BARBARA BARBARA RADIATION MED CTR MED CTR THERAPY 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 ST 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 ST FLDS PLACEMENT NTSTY [address] MODUL 4 BARBARA BARBARA DLVR MED CTR MED CTR 1/MANAGER RESIDENTIAL 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 ST 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 ST FLDS/ARCS NC TX SESSION INITIAL 21559 [facility]I [facility]I NURSING 4 MHA MHA FACILITY CARE/DAY 45 MINUTES NONEMERGE A0130 LKLP CAC LKLP NCY 4 INC COMMUNITY TRANSPORT REGION 9 ACTION_I ATION: MARYCRUZ WILLAMS NONEMERGE A0130 LKLP CAC LKLP NCY 4 INC COMMUNITY TRANSPORT REGION 9 ACTION_I ATION: MARYCRUZ WILLAMS [facility] [address] [facility] 4 BARBARA BARBARA PHYSICS MED CTR MED CTR CONSLTJ 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 ST 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 ST [place] NTSTY [address] MODUL 4 BARBARA BARBARA DLVR MED CTR MED CTR 1/MANAGER RESIDENTIAL 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 ST 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 ST FLDS/[place] [address] ONCOLOGY MINDA GUIDANCE 4 HEMATOLOG JANNA RADIATION Y CARE, [place] [address] GUIDANCE 4 BARBARA BARBARA RADIATION MED CTR MED CTR THERAPY 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 ST 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 ST FLDS PLACEMENT NTSTY [address] MODUL 4 BARBARA BARBARA DLVR MED CTR MED CTR 1/MANAGER RESIDENTIAL 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 ST 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 ST FLDS/ARCS NC TX SESSION RADIATION 37645 ONCOLOGY [place] PRA 4 HEMATOLOG TREATMENT Y CARE, IN MANAGEMEN T 5 TREATMENT S NONEMERGE A0130 LKLP CAC LKLP NCY 4 INC COMMUNITY TRANSPORT REGION 9 ACTION_I ATION: MARYCRUZ WILLAMS NONEMERGE A0130 LKLP CAC LKLP NCY 4 INC COMMUNITY TRANSPORT REGION 9 ACTION_I ATION: MARYCRUZ WILLAMS NTSTY [address] MODUL 4 BARBARA BARBARA DLVR MED CTR MED CTR 1/MANAGER RESIDENTIAL 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 ST 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 ST FLDS/[place] [address] [facility] GUIDANCE 4 BARBARA BARBARA RADIATION MED CTR MED CTR THERAPY 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 ST [facility] 68[address] [facility] MANAG[facility]EN PHYSICIAN T > 30 S MIN [facility] [address] ROBLES CARE/DAY 25 PHYSICIAN MINUTES S [facility] 32201 [facility] 4 S DISEASE VID CARE/DAY 35 CONSULTAN MINUTES SBSQ 85611 [facility] 4 BARBARA GUR CARE/DAY 25 PHYSICIAN MINUTES S SBSQ [address] CARE/DAY 25 PHYSICIAN MINUTES S [facility] 27953 [facility] 4 S DISEASE VID CARE/DAY 25 CONSULTAN MINUTES [facility] 75794 [facility] 4 HEMATOLOG CARE/DAY Y CARE, 15 IN MINUTES TRANSFUSI 9904 ST ON OF 4 BARBARA BARBARA PACKED MED CTR MED CTR CELLS 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 ST 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 ST SBSQ 82458 [facility] 4 BARBARA GUR CARE/DAY 25 PHYSICIAN MINUTES S SBSQ 27489 ONCOLOGY [facility] 4 HEMATOLOG N ISAIAH CARE/DAY Y CARE, 35 IN MINUTES SBSQ 87926 ONCOLOGY [facility] 4 HEMATOLOG N ISAIAH CARE/DAY Y CARE, 35 IN MINUTES SBSQ 17457 [facility] 4 BARBARA GUR CARE/DAY 25 PHYSICIAN MINUTES S SBSQ 08866 [facility] 4 BARBARA GUR CARE/DAY 25 PHYSICIAN MINUTES S [facility] 56328 ONCOLOGY [facility] 4 HEMATOLOG N [facility] CARE/DAY Y CARE, 35 IN MINUTES SBSQ 22618 ONCOLOGY [facility] 4 HEMATOLOG N [facility] CARE/DAY Y CARE, 35 IN MINUTES CV STRS 63601 [facility] TST 4 BARBARA CORONADO XERS&/OR RX CONT PHYSICIAN ECG I&R S ONLY SBSQ 92260 [facility] 4 BARBARA GUR CARE/DAY 25 PHYSICIAN MINUTES S CV STRS 98832 [facility] TST 4 BARBARA CORONADO XERS&/OR RX CONT PHYSICIAN ECG W/O S I&R RADIOLOGI 81077 RADIOLOGY RALPH C 4 GAR EXAMINATI ASSOCIATE ON CHEST S OF NOTH [place] [facility] [address] [facility] 4 HEMATOLOG N [facility] CARE/DAY Y CARE, 35 IN MINUTES ECHO 93616 [facility] TTHRC R-T 4 BARBARA 2D W/WOM-MOD PHYSICIAN E COMPL S SPEC&COLR D INITIAL 84949 [facility] 4 S DISEASE VID CARE/DAY 70 CONSULTAN MINUTES [facility] 78445 ONCOLOGY [facility] 4 HEMATOLOG N [facility] CARE/DAY Y CARE, 35 IN MINUTES INITIAL 96370 [facility] INPATIENT 4 BARBARA [place] NEW/ESTAB PHYSICIAN PT 80 S [place] [address] DAVIL[facility] WANDA L SPECT 4 [facility] PHYSICIAN S SBSQ 68267 [facility] 4 [facility]/DAY 25 PHYSICIAN MINUTES S GROUND A0425 [facility] MILEAGE 4 FIRE & FIRE & PER EMS EMS STATUTE MILE NONEMERGE A0130 LKLP CAC LKLP NCY 4 INC COMM[facility] TRANSPORT REGION 9 ACTION_I ATION: MARYCRUZ WILLAMS INITIAL 13782 [facility] 4 BARBARA GUR CARE/DAY 50 PHYSICIAN MINUTES S ECG [address] [facility] ROUTINE 4 BARBARA RAL ECG MED CTR W/LEAST 12 LDS I&R ONLY RADIOLOGI 44649 RADIOLOGY [facility] C 4 MARJ EXAMINATI ASSOCIATE ON CHEST S OF NOTH [place]ONTAL AMB A0427 [facility] SERVICE 4 FIRE & FIRE & ALS EMS EMS EMERGENCY TRANSPORT LEVEL 1 NONEMERGE A0130 LKLP CAC LKLP NCY 4 INC COMM[facility] TRANSPORT REGION 9 ACTION_I ATION: MARYCRUZ WILLAMS NONEMERGE A0130 LKLP CAC LKLP NCY 4 [facility] TRANSPORT REGION 9 ACTION_I ATION: MARYCRUZ WILLAMS NTSTY [address] MODUL 4 BARBARA BARBARA DLVR MED CTR MED CTR 1/MANAGER RESIDENTIAL 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 ST 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 ST FLDS/[place] [address] ONCOLOGY [facility] GUIDANCE 4 HEMATOLOG L[place] RADIATION Y CARE, [place] [address] GUIDANCE 4 BARBARA BARBARA RADIATION MED CTR MED CTR THERAPY 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 ST 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 [address] MAGNESIUM 4 BARBARA BARBARA MED CTR MED CTR 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 ST 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 ST INJECTION J1453 ONCOLOGY POLI CHR 4 HEMATOLOG FOSAPREPI Y CARE, TANT 1 [place] [address]STY [address] MODUL 4 BARBARA BARBARA DLVR MED CTR MED CTR 1/MANAGER RESIDENTIAL 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 ST 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 ST FLDS/ARCS [place] TX SESSION COLLECTIO 54760 ONCOLOGY POLI CHR N 4 HEMATOLOG CAPILLARY Y CARE, BLOOD IN SPECIMEN NONEMERGE A0130 LKLP CAC LKLP NCY 4 INC [facility] TRANSPORT REGION 9 ACTION_[place]: [place] [address] ONCOLOGY [facility] THERAPY 4 HEMATOLOG PROPHYLAX Y CARE, IS/DX IN CONCURREN T NFS BLOOD 53072 ONCOLOGY POLI CHR COUNT 4 HEMATOLOG COMPLETE Y CARE, AUTO&AUTO IN DIFRNTL WBC CHEMOTX 63553 ONCOLOGY POLI CHR ADMN IV 4 HEMATOLOG NFS TQ UP Y CARE, 1 HR IN SBST/DRUG INJECTION J2469 ONCOLOGY POLI CHR 4 HEMATOLOG [place] Y CARE, VICENTE HCL IN 25 MCG INJECTION J9060 ONCOLOGY POLI CHR 4 HEMATOLOG CISPLATIN Y CARE, POWDER IN OR SOLUTION 10 [place] [address] ONCOLOGY POLI CHR INFUSION 4 HEMATOLOG HYDRATION Y CARE, [place] [address] ONCOLOGY POLI CHR INFUSION 4 HEMATOLOG THER Y CARE, PROPH IN ADDL SEQUENTIA L TO 1 HR THERAPEUT 74816 ONCOLOGY POLI CHR IC 4 HEMATOLOG INJECTION Y CARE, IV PUSH IN EACH NEW DRUG RADIATION 09390 ONCOLOGY JOSH STRAUSS 4 HEMATOLOG TREATMENT Y CARE, IN MANAGEMEN T 5 TREATMENT S COMPREHEN 15041 ONCOLOGY POLI CHR SIVE 4 HEMATOLOG METABOLIC Y CARE, PANEL IN NONEMERGE A0130 LKLP CAC LKLP NCY 4 [facility] TRANSPORT REGION 9 ACTION_I ATION: MARYCRUZ WILLAMS THERAPEUT 33545 [place] IC PX 1/> 4 [place] ARE[place] CARE & CARE & EACH 15 REHABILI REHABILI MIN EXERCISES THERAPEUT 50688 [place] ACTVITY 4 [place] DIRECT PT CARE & CARE & CONTACT REHABILI REHABILI EACH 15 MIN THERAPEUT 45652 [place] IC PX 1/> 4 [place] AREAS CARE & CARE & EACH [address] [place] [address] ONCOLOGY JOSH STRAUSS GUIDANCE 4 HEMATOLOG RADIATION Y CARE, THERAPY IN FLDS PLACEMENT NTSTY [address] MODUL 4 BARBARA BARBARA DLVR MED CTR MED CTR 1/MANAGER RESIDENTIAL 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 ST 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 ST FLDS/ARCS NC TX SESSION NONEMERGE A0130 LKLP CAC LKLP NCY 4 INC COMMUNITY TRANSPORT REGION 9 ACTION_I ATION: MARYCRUZ WILLAMS NONEMERGE A0130 LKLP CAC LKLP NCY 4 INC COMMUNITY TRANSPORT REGION 9 ACTION_[place]: [place] [address] GUIDANCE 4 BARBARA BARBARA RADIATION MED CTR MED CTR THERAPY 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 ST 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 ST FLDS PLACEMENT NTSTY [address] MODUL 4 BARBARA BARBARA DLVR MED CTR MED CTR 1/MANAGER RESIDENTIAL 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 ST 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 ST FLDS/ARCS [place] SESSION NTSTY [address] MODUL 4 BARBARA BARBARA DLVR MED CTR MED CTR 1/MANAGER RESIDENTIAL 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 ST 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 ST FL[place] [address] GUIDANCE 4 BARBARA BARBARA RADIATION MED CTR MED CTR THERAPY 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 ST 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 ST FLDS PLACEMENT NONEMERGE A0130 LKLP CAC LKLP NCY 4 INC COMMUNITY TRANSPORT REGION 9 ACTION_I ATION: MARYCRUZ WILLAMS THERAPEUT 42070 [place] IC PX 1/> 4 [place] AREAS CARE & CARE & EACH 15 REHABILI REHABILI MIN EXERCISES THERAPEUT 78364 [place] ACTVITY 4 [place] DIRECT PT CARE & CARE & CONTACT REHABILI REHABILI [place]ACH 15 [place] [address] [place] 1/> AREAS 4 [place] EA 15 CARE & CARE & MIN GAIT REHABILI REHABILI TRAINJ W/STAIR CONTINUIN [address] [facility] 4 BARBARA BARBARA PHYSICS MED CTR MED CTR CONSLTJ 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 ST 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 ST NC WK NONEMERGE A0130 LKLP CAC LKLP NCY 4 INC COMMUNITY TRANSPORT REGION 9 ACTION_[place]: [place] [address] GUIDANCE 4 BARBARA BARBARA RADIATION MED CTR MED CTR THERAPY 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 ST 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 ST FLDS PLACEMENT NTSTY [address] MODUL 4 BARBARA BARBARA DLVR MED CTR MED CTR 1/MANAGER RESIDENTIAL 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 ST 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 ST FLDS/ARCS [place] SESSION NTSTY [address] MODUL 4 BARBARA BARBARA DLVR MED CTR MED CTR 1/MANAGER RESIDENTIAL 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 ST 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 ST FLDS/[place] [address] GUIDANCE 4 BARBARA BARBARA RADIATION MED CTR MED CTR THERAPY 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 ST 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 ST FLDS PLACEMENT RADIATION 62013 ONCOLOGY [facility] PRA 4 HEMATOLOG TREATMENT Y CARE, IN MANAGEMEN T [place] [address] [place] 1/> AREAS 4 [place] EA 15 CARE & CARE & MIN GAIT REHABILI REHABILI TRAINJ W/STAIR THERAPEUT 81801 [place] IC PX 1/> 4 [place] AREAS CARE & CARE & EACH 15 REHABILI REHABILI MIN EXERCISES THERAPEUT 57421 [place] IC PX 1/> 4 [place] AREAS CARE & CARE & EACH 15 REHABILI REHABILI MIN EXERCISES BLOOD 78800 ONCOLOGY CALLI COUNT 4 HEMATOLOG LAW COMPLETE Y CARE, AUTO&AUTO IN DIFRNTL WBC COMPREHEN 12922 ONCOLOGY CALLI SIVE 4 HEMATOLOG LAW METABOLIC Y CARE, PANEL IN THERAPEUT 35599 ONCOLOGY POLI CHR IC 4 HEMATOLOG INJECTION Y CARE, [place] [address] ONCOLOGY POLI CHR INFUSION 4 HEMATOLOG HYDRATION Y CARE, [place] [address] ONCOLOGY POLI CHR INFUSION 4 HEMATOLOG THER Y CARE, PROPH IN ADDL SEQUENTIA L TO 1 HR INJECTION J9060 ONCOLOGY POLI CHR 4 HEMATOLOG CISPLATIN Y CARE, POWDER IN OR SOLUTION 10 MG INJECTION J2469 ONCOLOGY POLI CHR 4 HEMATOLOG PALONOSET Y CARE, VICENTE HCL IN 25 MCG CHEMOTX 10143 ONCOLOGY POLI CHR ADMN IV 4 HEMATOLOG NFS TQ UP Y CARE, 1 HR IN SBST/[place] [address] GUIDANCE 4 [facility] CTR THERAPY 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 ST 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 ST FLDS PLACEMENT NONEMERGE A0130 LKLP CAC LKLP NCY 4 INC COMMUNITY TRANSPORT REGION 9 ACTION_I ATION: MARYCRUZ Vanegas VAN INJECTION J1453 ONCOLOGY POLI CHR 4 HEMATOLOG FOSAPREPI Y CARE, T[place] 1 [place] [address] MAGNESIUM 4 [facility] 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 ST 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 ST NTSTY 83587 [facility] MODUL 4 [place] [facility] COMM CARE 1/MANAGER RESIDENTIAL 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 ST FLDS/ARCS [place] SESSION COLLECTIO 03310 ONCOLOGY POLI CHR N 4 HEMATOLOG CAPILLARY Y CARE, BLOOD IN SPECIMEN NTSTY 55820 [facility] MOD[facility] 4 [place] [facility] COMM CARE 1/MANAGER RESIDENTIAL 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 ST FLDS/[place] [address] [place] 1/> AREAS 4 [place] EACH 15 CARE & CARE & MIN REHABIL[place] [address] GUIDANCE 4 [facility] MED CTR THERAPY 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 ST 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 ST FLDS PLACEMENT THERAPEUT 06254 [place] PX 1/> 4 [place] AREAS CARE & CARE & EACH 15 REHABILI REHABILI MIN EXERCISES THERAPEUT 83309 [place] PX 1/> 4 [place] AREAS CARE & CARE & EACH 15 [place] [address] [place] 1/> AREAS 4 [place] EACH 15 CARE & CARE & MIN REHABILI REHABILI NEUROMUSC REEDUCA CONTINUIN [address] G MEDICAL 4 [facility] PHYS[facility] MED CTR CONSLTJ 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 ST 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 [address] GUIDANCE 4 [facility] THERAPY 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 ST 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 ST FLDS PLACEMENT NONEMERGE A0130 LKLP CAC LKLP [facility] COMMUNITY TRANSPORT REGION 9 ACTION_I ATION: MARYCRUZ WILLAMS NTSTY [address]22 ST MODUL 4 BARBARA BARBARA DLVR MED CTR MED CTR 1/MANAGER RESIDENTIAL 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 ST 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 ST FLDS/ARCS [place] S[place] NTSTY [address] MODUL 4 BARBARA BARBARA DLVR MED CTR MED CTR 1/MANAGER RESIDENTIAL 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 ST 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 ST FLDS/[place] [address] GUIDANCE 4 BARBARA BARBARA RADIATION MED CTR MED CTR THERAPY 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 ST 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 ST FLDS PLACEMENT THERAPEUT 61669 [place] IC PX 1/> 4 [place] AREAS CARE & CARE & EACH 15 REHABILI REHABILI MIN EXERCISES NONEMERGE A0130 LKLP CAC LKLP [facility] COMMUNITY TRANSPORT REGION 9 ACTION_I ATION: MARYCRUZ WILLAMS THERAPEUT 54522 [place] ACTVITY 4 [place] DIRECT PT CARE & CARE & CONTACT REHABILI REHABILI [place]ACH 15 [place] [address] [place] 1/> AREAS 4 [place] EA 15 CARE & CARE & MIN GAIT REHABILI REHABILI TRAINJ W/STAIR THERAPEUT 54263 [place] IC PX 1/> 4 [place] AREAS CARE & CARE & EACH 15 REHABILI REHABILI MIN EXERCISES RADIATION 75233 ONCOLOGY [facility] 4 HEMATOLOG TREATMENT Y CARE, [place]NA[place]EM[place] [address] [place] [address] GUIDANCE 4 BARBARA BARBARA RADIATION MED CTR MED CTR THERAPY SOLAR INSTALLATION SUPERVISOR ST SOLAR INSTALLATION SUPERVISOR ST FLDS PLACEMENT NTSTY [address] MODUL 4 BARBARA BARBARA DLVR MED CTR MED CTR 1/MANAGER RESIDENTIAL SOLAR INSTALLATION SUPERVISOR ST SOLAR INSTALLATION SUPERVISOR ST FLDS/ARCS NC TX SESSION NONEMERGE A0130 LKLP CAC LKLP [facility] COMMUNITY TRANSPORT REGION 9 ACTION_I ATION: MARYCRUZ WILLAMS NTSTY [address] MODUL 4 BARBARA BARBARA DLVR MED CTR MED CTR 1/MANAGER RESIDENTIAL SOLAR INSTALLATION SUPERVISOR ST SOLAR INSTALLATION SUPERVISOR ST FLDS/ARCS NC TX SESSION NONEMERGE A0130 LKLP CAC LKLP [facility] COMMUNITY TRANSPORT REGION 9 ACTION_[place]: [place] [address] GUIDANCE 4 BARBARA BARBARA RADIATION MED CTR MED CTR THERAPY SOLAR INSTALLATION SUPERVISOR ST SOLAR INSTALLATION SUPERVISOR ST FLDS PLACEMENT INJECTION J1453 ONCOLOGY CALLI 4 HEMATOLOG LAW FOSAPREPI Y CARE, TANT 1 MG IN COMPREHEN 49238 ONCOLOGY CALLI SIVE 4 HEMATOLOG LAW METABOLIC Y CARE, PANEL IN THERAPEUT 61561 ONCOLOGY CALLI IC 4 HEMATOLOG LAW INJECTION Y CARE, [place] [address] ONCOLOGY CALLI INFUSION 4 HEMATOLOG LAW THER Y CARE, PROPH IN ADDL SEQUENTIA L TO 1 HR CHEMOTX 59457 ONCOLOGY CALLI ADMN IV 4 HEMATOLOG LAW NFS TQ UP Y CARE, 1 HR IN SBST/DRUG INJECTION J9060 ONCOLOGY CALLI 4 HEMATOLOG LAW CISPLATIN Y CARE, POWDER IN OR SOLUTION 10 MG INJECTION J2469 ONCOLOGY CALLI 4 HEMATOLOG LAW PALONOSET Y CARE, VICENTE HCL IN 25 MCG BLOOD 79108 ONCOLOGY CALLI COUNT 4 HEMATOLOG LAW COMPLETE Y CARE, AUTO&AUTO IN DIFRNTL WBC THERAPEUT 98933 [place] PX 1/> 4 [place] AREAS CARE & CARE & EACH 15 [place] [address] [place] 1/> AREAS 4 [place] EACH 15 CARE & CARE & MIN REHABILI REHABILI NEUROMUSC REEDUCA SELF-CARE 66917 [place] /HOME 4 [place] MGMT CARE & CARE & TRAINING REHABILI REHABILI EACH [address] [place] [address] GUIDANCE 4 BARBARA BARBARA RADIATION MED CTR MED CTR THERAPY SOLAR INSTALLATION SUPERVISOR ST SOLAR INSTALLATION SUPERVISOR ST FLDS PLACEMENT NONEMERGE A0130 LKLP CAC LKLP [facility] INC COMMUNITY TRANSPORT REGION 9 ACTION_I ATION: MARYCRUZ WILLAMS NTSTY [address] MODUL 4 BARBARA BARBARA DLVR MED CTR MED CTR 1/MANAGER RESIDENTIAL SOLAR INSTALLATION SUPERVISOR ST SOLAR INSTALLATION SUPERVISOR ST FLDS/ARCS [place] SESSION NTSTY [address] MODUL 4 BARBARA BARBARA DLVR MED CTR MED CTR 1/MANAGER RESIDENTIAL SOLAR INSTALLATION SUPERVISOR ST SOLAR INSTALLATION SUPERVISOR ST FLDS/ARCS NC TX SESSION NONEMERGE A0130 LKLP CAC LKLP [facility] COMMUNITY TRANSPORT REGION 9 ACTION_[place]: [place] [address] ONCOLOGY [facility] GUIDANCE 4 HEMATOLOG LLOYD RADIATION Y CARE, THERAPY IN FLDS PLACEMENT VASC [address] ACCESS 4 BARBARA BARBARA SITS VSL MED CTR MED CTR PATENCY SOLAR INSTALLATION SUPERVISOR ST SOLAR INSTALLATION SUPERVISOR ST NDL ENTRY INSJ [address] TUNNELED 4 BARBARA BARBARA CTR VAD MED CTR MED CTR W/SUBQ SOLAR INSTALLATION SUPERVISOR ST SOLAR INSTALLATION SUPERVISOR ST PORT AGE 5 YR/> [place]UORO [address] CENTRAL 4 BARBARA BARBARA VENOUS MED CTR MED CTR ACCESS SOLAR INSTALLATION SUPERVISOR ST SOLAR INSTALLATION SUPERVISOR ST DEV PLACEMENT CONTINUIN 03508 ST ST G MEDICAL 4 BARBARA BARBARA PHYSICS MED CTR MED CTR CONSLTJ SOLAR INSTALLATION SUPERVISOR ST SOLAR INSTALLATION SUPERVISOR ST NC WK THERAPEUT 92403 [place] IC PX 1/> 4 [place] AREAS CARE & CARE & EACH 15 REHABILI REHABILI MIN EXERCISES BLOOD [address] COUNT 4 BARBARA BARBARA COMPLETE MED CTR MED CTR AUTO&AUTO SOLAR INSTALLATION SUPERVISOR ST SOLAR INSTALLATION SU[place] [address] [place] 1/> AREAS 4 [place] EA 15 CARE & CARE & MIN GAIT REHABILI REHABILI TRAINJ W/STAIR COLLECTIO [address] ST ST N VENOUS 4 BARBARA BARBARA BLOOD MED CTR MED CTR VENIPUNCT SOLAR INSTALLATION SUPERVISOR ST SOLAR INSTALLATION SUPERVISOR ST URE PROTHROMB 17987 [facility] IN TIME 4 [place] RIVER MED CTR COMM CARE SOL[place] [address] ONCOLOGY MINDA GUIDANCE 4 HEMATOLOG JANNA RADIATION Y CARE, THERAPY IN FLDS PLACEMENT NONEMERGE A0130 LKLP CAC LKLP [facility] TRANSPORT REGION 9 ACTION_I ATION: MARYCRUZ WILLAMS NTSTY [address] MODUL 4 BARBARA BARBARA DLVR MED CTR MED CTR 1/MANAGER RESIDENTIAL SOLAR INSTALLATION SUPERVISOR ST SOLAR INSTALLATION SUPERVISOR ST FLDS/ARCS NC TX SESSION NTSTY [address] MODUL 4 BARBARA BARBARA DLVR MED CTR MED CTR 1/MANAGER RESIDENTIAL SOLAR INSTALLATION SUPERVISOR ST SOLAR INSTALLATION SUPERVISOR ST FLDS/[place] [address] GUIDANCE 4 BARBARA BARBARA RADIATION MED CTR MED CTR THERAPY SOLAR INSTALLATION SUPERVISOR ST SOLAR INSTALLATION SUPERVISOR ST FLDS PLACEMENT NONEMERGE A0130 LKLP CAC LKLP [facility] COMMUNITY TRANSPORT REGION 9 ACTION_[place]: [place] [address] [place] 1/> AREAS 4 [place] EA 15 CARE & CARE & MIN GAIT REHABILI REHABILI TRAINJ W/STAIR THERAPEUT 43942 [place] ACTVITY 4 [place] DIRECT PT CARE & CARE & CONTACT REHABILI REHABILI EACH 15 MIN THERAPEUT 18652 [place] IC PX 1/> 4 [place] AREAS CARE & CARE & EACH 15 REHABILI REHABILI MIN EXERCISES RADIATION 24459 ONCOLOGY [facility] 4 HEMATOLOG TREATMENT Y CARE, IN MANAGEMEN T 5 TREATMENT S THERAPEUT 66506 [place] IC PX 1/> 4 [place] AREAS CARE & CARE & EACH 15 [place] [address] [place] 1/> AREAS 4 [place] EACH 15 CARE & CARE & MIN REHABILI REHABILI NEUROMUSC REEDUCA THERAPEUT 13832 [place] ACTVITY 4 [place] DIRECT PT CARE & CARE & CONTACT REHABILI REHABILI EACH 15 MIN SPECIAL [address] TREATMENT 4 BARBARA BARBARA MED CTR MED CTR PROCEDURE SOLAR INSTALLATION SUPERVISOR ST SOLAR INSTALLATION SUPERVISOR ST NONEMERGE A0130 LKLP CAC LKLP [facility] COMMUNITY TRANSPORT REGION 9 ACTION_[place]: [place] [address] GUIDANCE 4 BARBARA BARBARA RADIATION MED CTR MED CTR THERAPY SOLAR INSTALLATION SUPERVISOR ST SOLAR INSTALLATION SUPERVISOR ST FLDS PLACEMENT NTSTY [address] MODUL 4 BARBARA BARBARA DLVR MED CTR MED CTR 1/MANAGER RESIDENTIAL SOLAR INSTALLATION SUPERVISOR ST SOLAR INSTALLATION SUPERVISOR ST FLDS/ARCS [place] SESSION NTSTY [address] MODUL 4 BARBARA BARBARA DLVR MED CTR MED CTR 1/MANAGER RESIDENTIAL SOLAR INSTALLATION SUPERVISOR ST SOLAR INSTALLATION SUPERVISOR ST [place] [address] GUIDANCE 4 BARBARA BARBARA RADIATION MED CTR MED CTR THERAPY SOLAR INSTALLATION SUPERVISOR ST SOLAR INSTALLATION SUPERVISOR ST FLDS PLACEMENT NONEMERGE A0130 LKLP CAC LKLP NCY [facility] TRANSPORT REGION 9 ACTION_I ATION: MARYCRUZ WILLAMS BLOOD 42501 ONCOLOGY CALLI COUNT 4 HEMATOLOG LAW COMPLETE Y CARE, AUTO&AUTO IN DIFRNTL WBC COMPREHEN 17868 ONCOLOGY ONCOLOGY SIVE 4 HEMATOLOG HEMATOLOG METABOLIC Y CARE, Y CARE, PANEL IN IN CONTINUIN [address] G MEDICAL 4 BARBARA BARBARA PHYSICS MED CTR MED CTR CONSLTJ SOLAR INSTALLATION SUPERVISOR ST SOLAR INSTALLATION SUPERVISOR ST NC WK NONEMERGE A0130 LKLP CAC LKLP NCY [facility] TRANSPORT REGION 9 ACTION_I ATION: MARYCRUZ WILLAMS NTSTY [address] MODUL 4 BARBARA BARBARA DLVR MED CTR MED CTR 1/MANAGER RESIDENTIAL SOLAR INSTALLATION SUPERVISOR ST SOLAR INSTALLATION SUPERVISOR ST FLDS/[place] [address] GUIDANCE 4 BARBARA BARBARA RADIATION MED CTR MED CTR THERAPY SOLAR INSTALLATION SUPERVISOR ST SOLAR INSTALLATION [place] [address] GUIDANCE 4 BARBARA BARBARA RADIATION MED CTR MED CTR THERAPY SOLAR INSTALLATION SUPERVISOR ST SOLAR INSTALLATION SUPERVISOR ST FLDS PLACEMENT NTSTY [address] MODUL 4 BARBARA BARBARA DLVR MED CTR MED CTR 1/MANAGER RESIDENTIAL SOLAR INSTALLATION SUPERVISOR ST SOLAR INSTALLATION SUPERVISOR ST FLDS/ARCS NC TX SESSION NONEMERGE A0130 LKLP CAC LKLP [facility] TRANSPORT REGION 9 ACTION_I ATION: [place]CRU[place] [address] SIMULAJ-A 4 BARBARA BARBARA IDED MED CTR MED CTR FIELD SOLAR INSTALLATION SUPERVISOR ST SOLAR INSTALLATION SUPERVISOR ST SETTING SIMPLE THERAPEUT 69448 [place] PX 1/> 4 [place] AREAS CARE & CARE & EACH 15 [place] [address] [place] 1/> AREAS 4 [place] EA 15 CARE & CARE & MIN GAIT REHABILI REHABILI TRAINJ W/STAIR THERAPEUT 38271 [place] ACTVITY 4 [place] DIRECT PT CARE & CARE & CONTACT REHABILI REHABILI EACH 15 MIN THERAPEUT 17663 [place] IC PX 1/> 4 [place] AREAS CARE & CARE & EACH 15 [place] [address] [place] 1/> AREAS 4 [place] EA 15 CARE & CARE & MIN GAIT REHABILI REHABILI TRAINJ W/STAIR THERAPEUT 05860 [place] IC PX 1/> 4 [place] AREAS CARE & CARE & EACH 15 REHABILI REHABILI MIN EXERCISES THERAPEUT 75762 [place] IC PX 1/> 4 [place] AREAS CARE & CARE & EACH 15 [place] [address] [place] 1/> AREAS 4 [place] EA 15 CARE & CARE & MIN GAIT REHABILI REHABILI TRAINJ W/STAIR SELF-CARE 66598 [place] /HOME 4 [place] MGMT CARE & CARE & TRAINING REHABILI REHABILI EACH [address] MEDICAL 4 BARBARA BARBARA RADJ MED CTR MED CTR PHYSICS SOLAR INSTALLATION SUPERVISOR ST SOLAR INSTALLATION SUPERVISOR ST CONSLTJ MLC IMRT [address] DESIGN & 4 BARBARA BARBARA CONSTRUCT MED CTR MED CTR ION PER SOLAR INSTALLATION SUPERVISOR ST SOLAR INSTALLATION SUPERVISOR ST IMRT PLAN NTSTY [address] MODUL 4 BARBARA BARBARA RADTHX MED CTR MED CTR PLN SOLAR INSTALLATION SUPERVISOR ST SOLAR INSTALLATION SUPER[place] [address] [place] 1/> AREAS 4 [place] EA 15 CARE & CARE & MIN GAIT REHABILI REHABILI TRAINJ W/STAIR THERAPEUT 47211 [place] ACTVITY 4 [place] DIRECT PT CARE & CARE & CONTACT REHABILI REHABILI EACH 15 MIN THERAPEUT 38041 [place] IC PX 1/> 4 [place] AREAS CARE & CARE & EACH 15 REHABILI REHABILI MIN EXERCISES BASIC [address] RADIATION 4 BARBARA BARBARA MED CTR MED CTR DOSIMETRY SOLAR INSTALLATION SUPERVISOR ST SOLAR INSTALLATION [place] [address] [place] 1/> AREAS 4 [place] EACH 15 CARE & CARE & MIN REHABILI REHABILI NEUROMUSC REEDUCA THERAPEUT 51084 [place] IC PX 1/> 4 [place] AREAS CARE & CARE & EACH 15 [place] [address] [place] 1/> AREAS 4 [place] EA 15 CARE & CARE & MIN GAIT REHABILI REHABILI TRAINJ W/[place] [address] [place] SWALLOWIN 4 [place] G CARE & CARE & DYSFUNCTI REHABILI REHABILI ON&/[place] [address] [place] SWALLOWIN 4 [place] G CARE & CARE & DYSFUNCTI REHABILI REHABILI ON&/[place] [address] [place] 1/> AREAS 4 [place] EA 15 CARE & CARE & MIN GAIT REHABILI REHABILI TRAINJ W/STAIR THERAPEUT 67520 [place] IC PX 1/> 4 [place] AREAS CARE & CARE & EACH 15 [place] [address] [place] SWALLOWIN 4 [place] G CARE & CARE & DYSFUNCTI REHABILI REHABILI ON&/ORAL FUNCJ FEEDING SELF-CARE 42198 [place] /HOME 4 [place] MGMT CARE & CARE & TRAINING REHABILI REHABILI EACH 15 MINUTES THERAPEUT 07109 [place] IC PX 1/> 4 [place] AREAS CARE & CARE & EACH 15 [place] [address] [place] 1/> AREAS 4 [place] EA 15 CARE & CARE & MIN GAIT REHABILI REHABILI TRAINJ W/[place] [address] [place]UM[place] 1/> AREAS 4 [place] EACH 15 CARE & BEHAVIORA [place] [address] [place]UM[place]LAN 1/> AREAS 4 [place] EA 15 CARE & BEHAVIORA MIN GAIT REHABILI L TRAINJ W/STAIR THERAPEUT 82083 [place] ACTVITY 4 [place] DIRECT PT CARE & CARE & CONTACT REHABILI REHABILI EACH 15 MIN THERAPEUT 79146 [place] IC PX 1/> 4 [place] AREAS CARE & CARE & EACH 15 [place] [address] [place] SWALLOWIN 4 [place] G CARE & CARE & DYSFUNCTI REHABILI REHABILI ON&/[place] [address] [place] SWALLOWIN 4 [place] G CARE & CARE & DYSFUNCTI REHABILI REHABILI ON&/ORAL FUNCJ FEEDING SELF-CARE 47128 [place] /HOME 4 [place] MGMT CARE & CARE & TRAINING REHABILI REHABILI EACH 15 MINUTES THERAPEUT 92995 [place] IC PX 1/> 4 [place] AREAS CARE & CARE & EACH 15 [place] [address] [place] 1/> AREAS 4 [place] EA 15 CARE & CARE & MIN GAIT REHABILI REHABILI TRAINJ W/[place] [address] [place] 1/> AREAS 4 [place] EACH 15 CARE & CARE & MIN REHABILI [place] [address] [place] 1/> AREAS 4 [place] EA 15 CARE & CARE & MIN GAIT REHABILI REHABILI TRAINJ W/STAIR THERAPEUT 93226 [place] IC PX 1/> 4 [place] AREAS CARE & CARE & EACH 15 REHABILI REHABILI MIN EXERCISES SELF-CARE 22520 [place] /HOME 4 [place] MGMT CARE & CARE & TRAINING REHABILI REHABILI EACH 15 [place] [address] [place] SWALLOWIN 4 [place] G CARE & CARE & DYSFUNCTI REHABILI REHABILI ON&/[place] [address] [place] SWALLOWIN 4 [place] G CARE & CARE & DYSFUNCTI REHABILI REHABILI ON&/ORAL FUNCJ FEEDING SELF-CARE 94378 [place] /HOME 4 [place] MGMT CARE & CARE & TRAINING REHABILI REHABILI EACH 15 MINUTES THERAPEUT 95957 [place] IC PX 1/> 4 [place] AREAS CARE & CARE & EACH 15 [place] [address] [place] 1/> AREAS 4 [place] EA 15 CARE & CARE & MIN GAIT REHABILI REHABILI TRAINJ W/STAIR THERAPEUT 25616 [place] ACTVITY 4 [place] DIRECT PT CARE & CARE & CONTACT REHABILI REHABILI EACH 15 [place] 47162 ONCOLOGY JOSH DIAZ-A 4 HEMATOLOG IDED Y CARE, FIELD IN SETTING COMPLEX THERAPEUT 01528 [place] IC PX 1/> 4 [place] AREAS CARE & CARE & EACH 15 REHABILI REHABILI MIN EXERCISES THERAPEUT 97424 ONCOLOGY MORENO PRA IC 4 HEMATOLOG RADIOLOGY Y CARE, [place] [address] GUIDANCE 4 [facility] RADIATION MED CTR MED CTR THERAPY SOLAR INSTALLATION SUPERVISOR ST SOLAR INSTALLATION [place] [address] DEVICES 4 [facility] DESIGN & MED CTR MED CTR CONSTRUCT SOLAR INSTALLATION SUPERVISOR ST SOLAR INSTALLATION SUPERVISOR ST ION COMPLEX UNLIS [address] MEDICAL 4 BARBARA BARBARA RADJ MED CTR MED CTR DOSIM TX SOLAR INSTALLATION SUPERVISOR ST SOLAR INSTALLATION [place] [address] [place] SWALLOWIN 4 [place] G CARE & CARE & DYSFUNCTI REHABILI REHABILI ON&/ORAL FUNCJ FEEDING THERAPEUT 28638 [place] IC PX 1/> 4 [place] AREAS CARE & CARE & EACH 15 REHABILI REHABILI MIN EXERCISES THERAPEUT 31705 [place] ACTVITY 4 [place] DIRECT PT CARE & CARE & CONTACT REHABILI REHABILI EACH 15 [place] [address] [place] 1/> AREAS 4 [place] EA 15 CARE & CARE & MIN GAIT REHABILI REHABILI TRAINJ W/[place] [address] [place]UMBERLAN 1/> AREAS 4 [place] EA 15 CARE & BEHAVIORA MIN GAIT REHABILI L TRAINJ W/STAIR THERAPEUT 83498 [place] IC PX 1/> 4 [place] AREAS CARE & CARE & EACH 15 [place] [address] [place] SWALLOWIN 4 [place] G CARE & CARE & DYSFUNCTI REHABILI REHABILI ON&/[place] [address] [place] SWALLOWIN 4 [place] G CARE & CARE & DYSFUNCTI REHABILI REHABILI ON&/ORAL FUNCJ FEEDING TX SPEECH 41521 [place] LANG 4 [place] VOICE CARE & CARE & COMMJ REHABILI REHABILI &/TALENT DEVELOPMENT MANAGER Y PROC IND THERAPEUT 49541 [place] IC PX 1/> 4 [place] AREAS CARE & CARE & EACH 15 [place] [address] [place] 1/> AREAS 4 [place] EA 15 CARE & CARE & MIN GAIT REHABILI REHABILI TRAINJ W/STAIR THERAPEUT 17511 [place] ACTVITY 4 [place] DIRECT PT CARE & BEHAVIORA CONTACT REHABILI L EACH 15 MIN EVAL 72255 [place] ORAL&PHAR 4 [place] YNGEAL CARE & CARE & SWLNG REHABILI REHABILI FUNCJ THERAPEUT 89033 [place] ACTVITY 4 [place] DIRECT PT CARE & CARE & CONTACT REHABILI REHABILI EACH 15 [place] [address] [place] 1/> AREAS 4 [place] EA 15 CARE & CARE & MIN GAIT REHABILI REHABILI TRAINJ W/STAIR THERAPEUT 71049 [place] IC PX 1/> 4 [place] AREAS CARE & CARE & EACH 15 REHABILI REHABILI MIN EXERCISES PHYSICAL 00731 [place] THERAPY 4 [place] EVALUATIO CARE & CARE & N REHABILI REHABILI TX SPEECH 25019 [place] LANG 4 [place] VOICE CARE & CARE & COMMJ REHABILI REHABILI &/T[place]ENT [place] [address] [place] SWALLOWIN 4 [place] G CARE & CARE & DYSFUNCTI REHABILI REHABILI ON&/ORAL FUNCJ FEEDING SELF-CARE 71020 [place] /HOME 4 [place] MGMT CARE & CARE & TRAINING REHABILI REHABILI EACH 15 [place] [address] [place] 1/> AREAS 4 [place] EACH 15 CARE & CARE & MIN REHABILI REHABILI NEUROMUSC REEDUCA INITIAL 18630 JIBRINI JIBRINI NURSING [facility] CARE/DAY 45 MINUTES OCCUPATIO 97278 [place] NAL 4 [place] THERAPY CARE & CARE & EVALUATIO REHABILI REHABILI N THERAPEUT 58846 [place] ACTVITY 4 [place] DIRECT PT CARE & CARE & CONTACT REHABILI REHABILI EACH 15 MIN ANESTHESI 69094 INDEPENDE CLAYBON A 4 NT LORENZO INTRAORAL ANESTHESI WITH OLOGIST BIOPSY NOS SBSQ 15766 [facility] 4 NECK JAM CARE/DAY SURGERY 15 ASSOC MINUTES ALVEOLOPL 245 [facility] ASTY 4 BARBARA BARBAAR [place] [address] RADIOLOGY AGOSTO BYR GUIDANCE 4 RADIATION ASSOCIATE [place] [address] ONCOLOGY MORENO RICA DEVICES 4 HEMATOLOG DESIGN & Y CARE, CONSTRUCT IN ION COMPLEX THER RAD 74808 ONCOLOGY JOSH STRAUSS SIMULAJ-A 4 HEMATOLOG IDED Y CARE, FIELD IN SETTING COMPLEX THERAPEUT 37683 ONCOLOGY [facility] IC 4 HEMATOLOG RADIOLOGY Y CARE, TX IN PLANNING COMPLEX SBSQ 69451 [facility] 4 [facility] CARE/DAY 25 PHYSICIAN MINUTES S SBSQ 54724 [place] [address] NECK THE CARE/DAY SURGERY 15 ASSOC MINUTES ANES 28173 INDEPENDE ROSANGELA UPPER GI 4 NT NORA ENDOSCOPY ANESTHESI PROXIMAL OLOGIST TO DUODENUM EGD 40792 [facility] PERCUTANE 4 [facility] OUS PLACEMENT PHYSICIAN S GASTROSTO MY TUBE PET 97669 RADIOLOGY YURIDIA IMAGING [address] ASSOCIATE ATTENUATI S OF NOTH ON SKULL BASE MID-THIGH INITIAL 47023 [facility] INPATIENT 4 [facility] CONSULT NEW/ESTAB PHYSICIAN PT 80 S MIN SBSQ 42036 [place] [address] NECK CARE/DAY SURGERY 15 ASSOC MINUTES SBSQ 82892 [facility] 4 NECK CARE/DAY SURGERY 15 ASSOC MINUTES SBSQ [address] CARE/DAY 25 PHYSICIAN MINUTES S SBSQ 19460 [place] [address] NECK AP CARE/DAY SURGERY 25 ASSOC MINUTES RADIOLOGI 68548 RADIOLOGY ART IVAN ASSOCIATE ON CHEST S OF NOTH [place] FRONTAL SBSQ [address] CARE/DAY 25 PHYSICIAN MINUTES S SBSQ 90653 ONCOLOGY [place] [address] HEMATOLOG LAW CARE/DAY Y CARE, 25 IN MINUTES SBSQ 85122 [facility] 4 BARBARA VINCENT CARE/DAY 35 PHYSICIAN MINUTES S SBSQ 35511 [facility] 4 BARBARA VINCENT CARE/DAY 35 PHYSICIAN MINUTES S INITIAL 53914 ONCOLOGY [facility] 4 HEMATOLOG LAW CARE/DAY Y CARE, 70 IN MINUTES PHARYNGEA [address] L BIOPSY 4 BARBARA BARBARA FT FT CHEMO CHEMO CONT [address] INVASIVE 4 BARBARA BARBARA MECH VENT FT FT < 96 CHEMO [place] CONSECUTI VE HOURS TEMPORARY [address] 4 BARBARA BARBARA TRACHEOST FT FT STEVE CHEMO MCLAIN LARYNGOSC [address] OPY AND 4 BARBARA BARBARA OTHER FT FT TRACHEOSC CHEMO MCLAIN OPY PATH 12611 [facility] CONSLTJ 4 BARBARA DOMINGA SURG 1ST MED CTR BLK [place] 1 [place] [address] ST VANG SURG 4 BARBARA DOMINGA PATHOLOGY MED CTR GROSS&AP ROSCOPIC EXAM INITIAL 43801 [facility] 4 BARBARA VINCENT CONSULT NEW/ESTAB PHYSICIAN PT 80 S MIN ECG [address] ANKUR ROUTINE 4 BARBARA GAR ECG W/LEAST PHYSICIAN 12 LDS S EKG I&R ONLY RADIOLOGI 84125 RADI[facility] RALPH C 4 GAR EXAMINATI ASSOCIATE ON CHEST S OF NOTH [place] [facility] N ANT THYRD ANESTHESI LARYNX OLOGIST TRACH & LYMPH NECK 1YR NONEMERGE A0130 [facility]Y 4 INC TRANSPORT TRANSPORT REGION 9 ATION CO ATION: Alexandru WILLAMS NONEMERGE A0130 [facility] 4 INC TRANSPORT TRANSPORT REGION 9 ATION CO ATION: Alexandru WILLAMS ECG [address] ROUTINE 4 BARBARA BARBARA ECG MED CTR MED CTR W/LEAST SOLAR INSTALLATION SUPERVISOR ST SOLAR INSTALLATION SUPERVISOR ST 12 LDS TRCG ONLY W/O I&R ECG [address]18 ST TIO MAR ROUTINE 4 BARBARA ECG MED CTR W/LEAST 12 LDS I&R ONLY CT THORAX 91913 RADIOLOGY KERRI 4 CHR W/CONTRAS ASSOCIATE T S OF NOTH MATERIAL CT SOFT 68917 RADIOLOGY DARYL TISSUE 4 MAR NECK ASSOCIATE W/CONTRAS S OF NOTH T MATERIAL NONEMERGE A0130 [facility] 4 INC TRANSPORT TRANSPORT REGION 9 ATION CO ATION: Alexandru Vanegas VAN ADLT D T4528 PERSONAL PERSONAL DISPBL 4 TOUCH TOUCH INCONT HOME INTERMEDIATE CARE PROD OF OF UNDWEAR XTRA LG EA LARYNGOSC 94207 [facility] OPY 4 NECK JAM FLEXIBLE SURGERY DIAGNOSTI ASSOC C NONEMERGE A0130 [facility] 4 INC TRANSPORT TRANSPORT REGION 9 ATION CO ATION: Alexandru WILLAMS NONEMERGE A0130 [facility] 4 INC TRANSPORT TRANSPORT REGION 9 ATION CO ATION: Alexandru WILLAMS RESP ASST E0470 [facility]ARE CONVACARE DEVC [...] PERSONAL DISPBL 4 TOUCH TOUCH INCONT HOME INTERMEDIATE CARE PROD OF OF UNDWEAR XTRA LG EA HUMDIFIR E0562 [facility]ARE CONVACARE HEATED 4 SERVICES SERVICES USED INC INC W/POS ARWAY PRESSURE DEVICE RESP ASST E0470 [facility]VAC[facility] DEVC 4 SERVICES SERVICES BI-LEVL INC INC PRSS CAPABILIT Y W/O BACKU BASIC [address] METABOLIC 4 BARBARA BARBARA PANEL MED CTR MED CTR CALCIUM SOLAR INSTALLATION SUPERVISOR ST SOLAR [place] [address] THYROID 4 P & S SURGERY CENTERZABETH STIMULATI MED CTR MED CTR NG SOLAR INSTALLATION SUPERVISOR ST SOLAR INSTALLATION SUPERVISOR ST HORMONE TSH LIPID [address] PANEL [facility] MED [facility] MED CTR SOLAR INSTALLATION SUPERVISOR ST SOLAR INSTALLATION SUPERVISOR ST HEPATIC [address] FUNCTION [facility] PANEL MED CTR MED CTR SOLAR INSTALLATION SUPERVISOR ST SOLAR INSTALLATION SUPERVISOR ST HEMOGLOBI [address] [facility] GLYCOSYLA MED CTR MED CTR CASSIUS A1C SOLAR INSTALLATION SUPERVISOR ST SOLAR INSTALLATION SUPERVISOR ST RESP ASST E0470 CONVACARE CONVACARE DEVC 4 SERVICES SERVICES BI-LEVL INC INC PRSS CAPABILIT Y W/O BACKU HUMDIFIR E0562 CONVACARE CONVACARE HEATED 4 SERVICES SERVICES USED INC INC W/POS ARWAY PRESSURE DEVICE ADLT SZD T4528 PERSONAL PERSONAL DISPBL 4 TOUCH TOUCH INCONT HOME INTERMEDIATE CARE PROD OF OF UNDWEAR XTRA LG EA NONEMERGE A0130 [facility] 4 INC TRANSPORT TRANSPORT REGION 9 ATION CO ATION: Alexandru WILLAMS NONEMERGE A0130 [facility] 4 INC TRANSPORT TRANSPORT REGION 9 ATION CO ATION: Alexandru WILLAMS POLYSOM [address] 6/>YRS 4 BARBARA BARBARA SLEEP MED CTR MED CTR W/CPAP SOLAR INSTALLATION SUPERVISOR ST SOLAR INSTALLATION SUPERVISOR ST 4/> ADDL RHIANNA ATTND HEPATIC [address] FUNCTION 3 P & S SURGERY CENTERZABETH PANEL MED CTR MED CTR SOLAR INSTALLATION SUPERVISOR ST SOLAR INSTALLATION SUPERVISOR ST HEMOGLOBI [address] N [address] [facility] GLYCOSYLA MED CTR MED CTR CASSIUS A1C SOLAR INSTALLATION SUPERVISOR ST SOLAR INSTALLATION SUPERVISOR ST IIV[address] ROCK VACCINE 3 BARBARA PA SPLIT VIRUS 0.5 PHYSICIAN ML S DOSAGE IM USE ADLT SZD T4528 PERSONAL PERSONAL DISPBL 3 TOUCH TOUCH INCONT HOME INTERMEDIATE CARE PROD OF OF UNDWEAR XTRA LG EA BASIC [address] ST ST METABOLIC 3 BARBARA BARBARA PANEL MED CTR MED CTR CALCIUM SOLAR INSTALLATION SUPERVISOR ST SOLAR [place] [address] THYROID 3 BARBARA BARBARA STIMULATI MED CTR MED CTR NG SOLAR INSTALLATION SUPERVISOR ST SOLAR INSTALLATION [place] [address] PROSTATE [address] [facility] SPECIFIC MED CTR MED CTR ANTIGEN SOLAR INSTALLATION SUPERVISOR ST SOLAR INSTALLATION SUPERVISOR ST TOTAL COLLECTIO [address] ST ROCK N VENOUS 3 [facility] BLOOD VENIPUNCT PHYSICIAN WHITNEY GUPTA SZD T4528 PERSONAL PERSONAL DISPBL 3 TOUCH TOUCH INCONT HOME INTERMEDIATE CARE PROD OF OF UNDWEAR XTRA LG EA POLYSOM [address] 6/>YRS 3 BARBARA BARBARA SLEEP 4/> MEDICAL MEDICAL ADDL CENTER CENTER RHIANNA ATTND NONEMERGE A0130 LKLP CAC BENNETTS NCY 3 INC TRANSPORT TRANSPORT REGION 9 ATION CO ATION: Alexandru WILLAMS DETERMINA [address], REFRACTIV OD, PSC E STATE OPHTH [address] MEDICAL 3 L[address], XM&EVAL OD, PSC COMPRE NEW PT 1/> VST NONEMERGE A0130 LKLP CAC BENNETTS NCY 3 INC TRANSPORT TRANSPORT REGION 9 ATION CO ATION: Alexandru WILLAMS ADLT SZD T4528 PERSONAL PERSONAL DISPBL 3 TOUCH TOUCH INCONT HOME INTERMEDIATE CARE PROD OF OF UNDWEAR XTRA LG EA NONEMERGE A0130 LKLP CAC BENNETTS NCY 3 INC TRANSPORT TRANSPORT REGION 9 ATION CO ATION: Alexandru WILLAMS ECG [address] [facility] ROUTINE 3 BARBARA RAL ECG MED CTR W/LEAST 12 LDS I&[place] [address] RADIOLOGY [place]GE HEAD/BRAI 3 ISAIAH N W/O ASSOCIATE CONTRAST S OF NOT MATERIAL GROUND A0425 SHAI SHAI MILEAGE 3 CO CO PER AMBULANCE AMBULANCE STATUTE TAXIN TAXIN MILE AMB A0427 SHAI SHAI SERVICE 3 CO CO ALS AMBULANCE AMBULANCE EMERGENCY TAXIN TAXIN TRANSPORT LEVEL 1 ADLT SZD T4528 PERSONAL PERSONAL DISPBL 3 TOUCH TOUCH INCONT HOME INTERMEDIATE CARE PROD OF OF JAIDA SHOOK LG EA IIV3 VACC [address] ROCK 2 BARBARA AP PRESERVAT SURENDRA FREE PHYSICIAN 0.5 ML S DOSAGE IM USE REMOVAL 66324 [facility] SKN TAGS 2 BARBARA AP MANAGER RESIDENTIAL FIBRQ TAGS ANY PHYSICIAN AREA S UPW/15 REPR/SRVC [id number] THE THE DME NOT 2 SCOOTER SCOOTER O2 RQR STORE STORE TECH CMPNT [place] [address] [place] [address] THYROID 2 BARBARA BARBARA STIMULATI NG MEDICALCE MEDICAL[place] [address] PROSTATE 2 BARBARA BARBARA SPECIFIC ANTIGEN MEDICALCE MEDICALCE TOTAL NTER NTER AMB A0427 SHAI SHAI SERVICE 2 CO CO ALS AMBULANCE AMBULANCE EMERGENCY TAXIN TAXIN TRANSPORT LEVEL 1 GROUND A0425 SHAI SHAI MILEAGE 2 CO CO PER AMBULANCE AMBULANCE STATUTE TAXIN TAXIN MILE HEPATIC [address] FUNCTION 2 BARBARA BARBARA PANEL MEDICALCE MEDICALCE NTER NTER LIPID [address] ST [address] PANEL 2 BARBARA BARBARA MEDICALCE MEDICALCE NTER NTER HEMOGLOBI [address] N 2 BARBARA BARBARA GLYCOSYLA CASSIUS A1C MEDICALCE MEDICALCE NTER NTER BASIC [address] METABOLIC 2 BARBARA BARBARA PANEL CALCIUM MEDICALCE MEDICALCE TOTAL NTER NTER CREATININ [address] E OTHER 2 BARBARA BARBARA SOURCE [place] [address] FREE 2 BARBARA BARBARA THYROXINE [place]ICAL[place] [address] THYROID 2 BARBARA BARBARA STIMULATI NG MEDICALCE MEDICALCE HORMONE NTER NTER TSH [facility]GE A0100 [facility] TRANSPORT ACTION ATION CO ATION; L TAXI ALBUMIN [address] URINE 2 BARBARARED JIMENEZ MICROALBU MIN MEDICALCE MEDICALCE QUANTIATI NTER NTER VE COLLECTIO 38219 ST ROCK N VENOUS 2 BARBARA AP BLOOD VENIPUNCT PHYSICIAN URE S PWR K0825 THE THE GRP 2 2 SCOOTER SCOOTER HEVY DUTY STORE STORE CAPT CHAIR PT [phone] LBS REPR/SRVC [id number] THE THE DME NOT 2 SCOOTER SCOOTER O2 RQR STORE STORE TECH CMPNT PER 15 MINS PWR E2361 THE THE ACSS 22NF 2 SCOOTER SCOOTER 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 Rhiannon SHERMAN EHR REFRACTIV OD, PSC E STATE PHYSICAL 64523 [facility] [place] NONEMERGE A0100 [facility] 2 COMMUNITY TRANSPORT TRANSPORT ACTION ATION CO ATION; L TAXI BLOOD [address]23[address] ST ST COUNT 1 BARBARA JIMENEZ COMPLETE AUTO&AUTO MEDICALCE MEDICALCE DIFRNTL NTER NTER WBC COMPREHEN [address] SIVE 1 BARBARA BARBARA METABOLIC PANEL MEDICALCE MEDICALCE NTER NTER ECG [address] ST MOHINI ROUTINE 1 BARBARA DEL ECG MED CTR W/LEAST 12 LDS I&R ONLY GLUCOSE [address] BLOOD 1 BARBARA BARBARA REAGENT STRIP MEDICALCE MEDICALCE NTER NTER ECG [address] ROUTINE 1 BARBARA BARBARA ECG W/LEAST MEDICALCE MEDICALCE 12 LDS NTER NTER TRCG ONLY W/O I&R GROUND A0425 SHAI SHAI MILEAGE 1 CO CO PER AMBULANCE AMBULANCE STATUTE TAXIN TAXIN MILE AMB A0427 SHAI SHAI SERVICE 1 CO CO ALS AMBULANCE AMBULANCE EMERGENCY TAXIN TAXIN TRANSPORT LEVEL [address] N VENOUS [address] [facility] BLOOD VENIPUNCT MEDICALCE MEDICALCE URE NTER NTER LIPID [address] PANEL 1 BARBARA BARBARA MEDICALCE MEDICALCE NTER NTER HEPATIC [address] FUNCTION 1 BARBARA BARBARA PANEL MEDICALCE MEDICALCE NTER NTER HEMOGLOBI [address] N [facility] CASSIUS A1C [place] [address] BLOOD/URI [address] [facility] C ACID MEDICALCE MEDICALCE NTER NTER BASIC [address] METABOLIC [address] [facility] PANEL CALCIUM MEDICALCE MEDICALCE TOTAL NTER NTER THERAPEUT [address] IC PX 1/> 1 [facility] EACH 15 MIN EXERCISES NONEMERGE A0100 [facility] 1 COMMUNITY TRANSPORT TRANSPORT ACTION ATION CO ATION; L TAXI THERAPEUT [address] IC PX 1/> 1 [facility] EACH 15 MIN EXERCISES NONEMERGE A0100 LKLP [facility] NCY 1 COMMUNITY TRANSPORT TRANSPORT ACTION ATION CO ATION; L TAXI NONEMERGE A0100 LKLP [facility] NCY 1 COMMUNITY TRANSPORT TRANSPORT ACTION ATION CO ATION; L TAXI NONEMERGE A0100 LK [facility]TS NCY 1 COMMUNITY TRANSPORT TRANSPORT ACTION ATION CO ATION; L TAXI THERAPEUT [address] IC PX 1/> 1 [facility] EACH 15 MIN EXERCISES THERAPEUT [address] IC PX 1/> 0 [facility] EACH 15 MIN EXERCISES NONEMERG A0120 LKLP LKLP TRNSPRT: 0 [facility] ACTION N [facility]/OT SYS THERAPEUT [address] IC PX 1/> 0 [facility] EACH 15 MIN EXERCISES NONEMERG A0120 LKLP LKLP TRNSPRT: 0 [facility] MINI-BUS ACTION N [facility]/OT SYS THERAPEUT [address] IC PX 1/> 0 [facility] EACH 15 MIN EXERCISES PHYSICAL [address] THERAPY 0 [facility] N NONEMERG A0120 LKLP LKLP TRNSPRT: 0 [facility]-BUS ACTION N [facility]/OT SYS NONEMERG A0120 LKLP LKLP TRNSPRT: 0 [facility] ACTION N [facility]/OT SYS HEPATIC [address] FUNCTION 0 BARBARA BARBARA PANEL MEDICALCE MEDICALCE NTER NTER LIPID [address] PANEL 0 BARBARA BARBARA MEDICALCE MEDICALCE NTER NTER NONEMERG A0120 LKLP LKLP TRNSPRT: 0 [facility] ACTION N [facility]/OT SYS IIV3 [address] VACCINE 0 BARBARA BARBARA SPLIT VIRUS 0.5 PHYSICIAN PHYSICIAN ML S S DOSAGE IM USE BASIC [address] ST ST METABOLIC 0 BARBARA BARBARA PANEL CALCIUM MEDICALCE [place] [address] BLOOD/URI 0 BARBARA BARBARA C ACID MEDICALCE MEDICALCE NTER NTER BASIC [address] METABOLIC 0 BARBARA BARBARA PANEL CALCIUM MEDICALCE MEDICALCE TOTAL NTER NTER URNLS DIP [address] 0 BARBARA BARBARA STICK/TAB LET RGNT MEDICALCE MEDICALCE NON-AUTO NTER NTER W/O MICRSCP GROUND A0425 SHAI SHAI MILEAGE 0 CO CO PER AMBULANCE AMBULANCE STATUTE TAXIN TAXIN MILE BLOOD [address] COUNT 0 BARBARA BARBARA COMPLETE AUTO&AUTO MEDICALCE MEDICALCE DIFRNTL NTER NTER WBC AMB A0427 SHAI SHAI SERVICE 0 CO CO ALS AMBULANCE AMBULANCE EMERGENCY TAXIN TAXIN TRANSPORT L[place] [address] [place] [address] MAGNESIUM 0 ABRBARA BARBARA MEDICALCE MEDICALCE NTER NTER COLLECTIO [address] N [facility]OUS [facility] VENIPUNCT MEDICALCE MEDICALCE [facility] [address] [facility] [place] DISCHARGE 0 BARBARA MIN DAY MANAGEMEN PHYSICIAN T 30 S MIN/< SBSQ 96789 [facility] 0 S CARE/DAY HEALTHCAR 25 E IN MINUTES ELECTROEN 56240 [facility] CEPHALOGR 0 S AM W/REC HEALTHCAR AWAKE&[place] [address] RADIOLOGY YURIDIA HEAD/BRAI 0 SHARLA N W/O ASSOCIATE CONTRAST S PSC MATERIAL MRI BRAIN 34699 RADIOLOGY ARLINE BRAIN 0 ATT STEM W/O ASSOCIATE W/CONTRAS S PSC T MATERIAL RADIOLOGI 53934 RADIOLOGY YURIDIA C 0 SHARLA EXAMINATI ASSOCIATE ON CHEST S PSC [place] FRONTAL ECG [address] ST TIO MAR ROUTINE 0 BARBARA ECG MED CTR W/LEAST 12 LDS I&R ONLY GROUND A0425 SHAI SHAI MILEAGE 0 CO CO PER AMBULANCE AMBULANCE STATUTE TAXIN TAXIN MILE AMBULANCE A0429 SHAI SHAI SERVICE 0 CO CO BLS AMBULANCE AMBULANCE EMERGENCY TAXIN TAXIN TRANSPORT INITIAL 89529 [facility] 0 BARBARA AP CARE/DAY 50 PHYSICIAN MINUTES S ECG [address] TIO MAR ROUTINE 0 BARBARA ECG MED CTR W/LEAST 12 LDS I&R ONLY CT SOFT 72538 RADIOLOGY [place] TISSUE 0 NORA NECK ASSOCIATE W/CONTRAS S PSC T MATERIAL [facility] 01953 [facility] DISCHARGE 0 BARBARA AP DAY MANAGEMEN PHYSICIAN T 30 S MIN/< INITIAL 62988 [facility] 0 BARBARA AP CARE/DAY 70 PHYSICIAN MINUTES S MRI BRAIN 84338 RADIOLOGY SUMAYA BRAIN 0 III ALICIA STEM W/O ASSOCIATE W/CONTRAS S PSC T MATERIAL ELECTROEN 72103 FIOR GALLARDO TY CEPHALOGR 0 S AM W/REC HEALTHCAR AWAKE&ASL E IN EEP ECG 37554 [facility] ROUTINE 0 BARBARA ECG MED CTR W/LEAST 12 LDS I&R ONLY MRA NECK 39042 RADIOLOGY RADIOLOGY W/O 0 &W/CONTRA ASSOCIATE ASSOCIATE ST S PSC S PSC MATERIAL GROUND A0425 SHAI SHAI MILEAGE 0 CO CO PER AMBULANCE AMBULANCE STATUTE SERVI SERVI MILE ECG 67813 [facility] MAR ROUTINE 0 BARBARA ECG MED CTR W/LEAST 12 LDS I&R ONLY RADIOLOGI 73188 RADIOLOGY RALPH C 0 JAM EXAMINATI ASSOCIATE ON CHEST S PSC [place] FRONTAL AMB A0422 SHAI SHAI OXYGEN&O2 0 CO CO SUPPLIES AMBULANCE AMBULANCE LIFE SERVI SERVI SUSTAININ G SITUATION AMB A0427 SHAI SHAI SERVICE 0 CO CO ALS AMBULANCE AMBULANCE EMERGENCY SERVI SERVI TRANSPORT LEVEL 1 CT LOWER 00008 RADIOLOGY BRANDSER EXTREMITY 0 GUY W/O ASSOCIATE CONTRAST S PSC MATERIAL 3D 55933 RADIOLOGY BRANDSER RENDERING 0 GUY W/INTERP ASSOCIATE & S PSC POSTPROCE SS SUPERVISI ON RADIOLOGI 77571 RADIOLOGY DOERGER C EXAM 0 KIR KNEE ASSOCIATE COMPLETE S PSC 4/MORE VIEWS RADEX 13394 RADIOLOGY ROEBKER SHOULDER 0 JAM COMPLETE ASSOCIATE MINIMUM 2 S PSC VIEWS Encounters Encounter Start End Date Code Location Performer Type Date HOME [place] [address] 7 [facility] HOME INTERMEDIATE [facility], 7 7 BARBARA INPATIENT HOME CARE OFFICE 59814 [facility] T VISIT 15 PHYSICIAN MINUTES S HOME [facility], 7 7 BARBARA INPATIENT HOME CARE [facility] - 7 7 BARBARA OUTPATIEN [facility] 06328 7 7 BARBARA DEPARTMEN T VISIT HEALTHCAR HIGH/URGE E EDGE NT SEVERITY OFFICE 34438 [facility] 7 7 BARBARA T VISIT 25 PHYSICIAN MINUTES [facility] 7 [facility] [place] OFFICE 95222 [facility] 7 7 BARBARA T VISIT 25 PHYSICIAN MINUTES S OFFICE 37596 [facility] 7 7 BARBARA T VISIT 15 PHYSICIAN MINUTES S OFFICE 09744 [facility] 7 7 BARBARA T VISIT 5 MINUTES [facility] 76637 7 7 BARBARA DEPARTMEN T VISIT [facility]ALTHCAR MODERATE E EDGE SEVERITY OFFICE 60325 [facility] 7 7 BARBARA L T VISIT 25 PHYSICIAN MINUTES S EMERGENCY 37142 [facility] 7 7 EMERGENCY VISIT HIGH PHYSICIAN SEVERITY& S THREAT [facility] ST - 7 7 BARBARA OUTPATIEN T [facility] 82276 [facility] 7 7 EMERGENCY DEPARTMEN T VISIT PHYSICIAN HIGH/URGE S NT SEVERITY [facility] ST - 7 7 BARBARA OUTPATIEN T [facility] OFFICE 58705 [facility] 7 7 BARBARA T VISIT [address] - 7 7 BARBARA OUTPATIEN T [facility] OFFICE 09796 [facility] T VISIT 25 PHYSICIAN MINUTES S OFFICE 75760 [facility] 7 BAR[facility]A T VISIT MED CTR [address] - 7 7 [facility]BAR[facility] 7 BARBARA OUTPATIEN T [facility]ALTH[facility] E EDGE OFFICE 12890 [facility] BARBARA T VISIT 25 PHYSICIAN MINUTES S OFFICE 97011 [facility] 6 6 BARBARA TRO T VISIT 15 PHYSICIAN MINUTES [facility] ST - 6 6 BARBARA OUTPATIEN MED CTR [facility] ST - 6 6 BARBARA OUTPATIEN MED CTR T [facility] EMERGENCY 57642 MICHELLE BENNETT DEPT 6 6 PHYSICIAN AP VISIT S, [facility] HIGH SEVERITY& THREAT [facility] [place] 63009 [place] 6 6 [facility] DEPARTMEN INC T VISIT MODERATE SEVERITY [place]OSP[place] - 6 6 [facility] OUTPATIEN INC T OFFICE 05074 ONCOLOGY [facility] OUTPATIEN 6 6 HEMATOLOG T VISIT Y CARE, 15 IN MINUTES [facility] ST - 6 6 BARBARA OUTPATIEN MED CTR T [facility] ST - 6 6 BARBARA OUTPATIEN MED CTR T [facility] OFFICE 13943 [facility] OUTPATIEN 6 6 NECK JAM T VISIT SURGERY 15 ASSOC MINUTES OFFICE 77038 [facility] 6 6 BARBARA TRO T VISIT 15 PHYSICIAN MINUTES [facility] ST - 6 6 BARBARA OUTPATIEN MED CTR T [facility] OFFICE [address] ST [facility] OUTPATIEN 6 6 BARBARA TRO T VISIT 25 PHYSICIAN MINUTES S OFFICE [address]291 ST OUTPATIEN 6 6 BARBARA T VISIT 5 MED CTR MINUTES [facility] ST - 6 6 BARBARA OUTPATIEN MED CTR T [facility] OFFICE 23002 [facility] OUTPATIEN 6 6 NECK JAM T VISIT SURGERY 15 ASSOC MINUTES OFFICE [address] [facility] E[facility] OUTPATIEN 6 6 BARBARA TRO T VISIT 25 PHYSICIAN MINUTES [facility] ST - 6 6 BARBARA OUTPATIEN MED CTR T [facility] ST - 6 6 BARBARA OUTPATIEN MED CTR T [facility] ST - 6 6 BARBARA OUTPATIEN MED CTR T [facility] OFFICE 14599 [facility] OUTPATIEN 6 6 NECK JAM T VISIT SURGERY 25 ASSOC MINUTES OFFICE 36795 [facility] OUTPATIEN 6 6 BARBARA T VISIT 25 PHYSICIAN MINUTES [facility] ST - 6 6 BARBARA OUTPATIEN MED CTR T [facility] OFFICE [address]02 ST OUTPATIEN 6 6 BRABARA T VISIT 5 MED CTR MINUTES [facility] OFFICE 97809 ON[facility]Y [facility] OUTPATIEN 6 6 HEMATOLOG T VISIT Y CARE, 25 IN MINUTES OFFICE 97307 ONCOLOGY CALLI OUTPATIEN 6 6 HEMATOLOG LAW T VISIT Y CARE, 15 IN MINUTES [facility], 5 5 TOUCH OTHER HOME CARE OF HOME PERSONAL HEALTH, 5 5 TOUCH INPATIENT HOME CARE OF OFFICE 37385 [facility] OUTPATIEN 5 5 NECK JAM T VISIT SURGERY 15 ASSOC MINUTES HOME PERSON[facility] HEALTH, 5 5 TOUCH OTHER HOME CARE OF OFFICE 16934 [facility] OUT[facility]IEN 5 5 BARBARA DENIA T VISIT 15 PHYSICIAN MIN[address] S [facility] [address] - 5 5 BARBARA OUTPATIEN MED CTR T 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 ST HOME PERSONAL HEALTH, 5 5 TOUCH OTHER HOME CARE OF OFFICE 35865 ST OUTPATIEN 5 5 BARBARA T VISIT 5 MED CTR MINUTES SOLAR INSTALLATION SUPERVISOR ST OFFICE 78297 ONCOLOGY [facility] OUTPATIEN 5 5 HEMATOLOG T VISIT Y CARE, [address] - 5 5 BARBARA OUTPATIEN MED CTR T 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 ST HOME PERSONAL HEALTH, 5 5 TOUCH OTHER HOME CARE OF OFFICE 22793 [facility] OUTPATIEN 5 5 BARBARA DENIA T VISIT 25 PHYSICIAN MINUTES S OFFICE 44524 ONCOLOGY CALLI OUTPATIEN 5 5 HEMATOLOG LAW T VISIT Y CARE, 15 IN MINUTES HOME PERSONAL HEALTH, 5 5 TOUCH OTHER HOME CARE OF HOME PERSONAL HEALTH, 5 5 TOUCH OUTPATIEN HOME CARE T OF HOME PERSONAL HEALTH, 5 5 TOUCH OTHER HOME CARE OF OFFICE 80439 [facility] OUTPATIEN 5 5 NECK JAM T VISIT SURGERY 15 ASSOC MINUTES HOME PERSONAL HEALTH, 5 5 TOUCH OUTPATIEN HOME CARE T OF HOSPITAL ST - 5 5 BARBARA OUTPATIEN MED CTR T 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 ST HOME PERSONAL HEALTH, 5 5 TOUCH OTHER HOME CARE OF OFFICE 12[address] [facility] OUT[facility]IEN 5 5 BARBARA DENIA T VISIT 15 PHYSICIAN MINUTES S HOME PERSONAL HEALTH, 5 5 TOUCH OUTPATIEN HOME CARE T OF OFFICE 24417 ONCOL[facility]Y [facility] OUTPATIEN 5 5 HEMATOLOG T VISIT Y CARE, 25 IN MINUTES OFFICE 17525 ONCOLOGY LUCINDA OUTPATIEN 5 5 HEMATOLOG N ISAIAH T VISIT Y CARE, 15 IN MINUTES HOME PERSONAL HEALTH, 5 5 TOUCH OTHER HOME CARE OF OFFICE 48693 [facility] OUT[facility]IEN 5 5 BARBARA DENIA T VISIT [address]YSIC[address] [facility] - 5 5 BARBARA OUTPATIEN MED CTR T 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 ST HOME 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 HEALTH, 5 5 TOUCH OUTPATIEN HOME CARE T OF OFFICE 21292 ONCOLOGY M[facility]ENO PRA OUTPATIEN 5 5 HEMATOLOG T VISIT Y CARE, 25 IN MINUTES HOME PERSONAL HEALTH, 5 5 TOUCH OUTPATIEN HOME CARE T OF HOME PERSONAL HEALTH, 5 5 TOUCH OTHER HOME CARE OF HOME PERSONAL HEALTH, 5 5 TOUCH OTHER HOME CARE OF HOME PERSONAL HEALTH, 5 5 TOUCH OUTPATIEN HOME CARE T OF OFFICE 35517 ONCOLOGY CALLI OUTPATIEN 5 5 HEMATOLOG LAW T VISIT Y CARE, 15 IN [address] OFFICE [address] [facility] OUT[facility]IEN 5 5 BARBARA DENIA T VISIT [address]IC[address] [facility] - 5 5 BARBARA OUTPATIEN MED CTR T SOLAR INSTALLATION SUPERVISOR ST OFFICE 44898 INFECTIOU DEVARAJAN OUTPATIEN 5 5 S DISEASE VID T VISIT 25 [place] [address] [facility] [facility] - 4 4 BARBARA OUTPATIEN MED CTR T SOLAR INSTALLATION SUPERVISOR OFFICE [address]5061 ST OUTPATIEN 4 4 BARBARA T VISIT 5 MED CTR MINUTES [facility] [place] - 4 4 [facility] OUTPATIEN INC T OFFICE 51311 INFECTIOU DEVARAJAN OUTPATIEN 4 4 S DISEASE VID T VISIT [address] [place] [address] - 4 4 BARBARA OUTPATIEN MED CTR T [facility] HOME PERSONAL HEALTH, 4 4 TOUCH OUTPATIEN HOME CARE T OF [place]ITAL [place] - 4 4 [facility] OUTPATIEN INC [facility]PITAL ST - 4 4 BARBARA OUTPATIEN MED CTR T [facility] PERSONAL HEALTH, 4 4 TOUCH OTHER HOME CARE OF HOME PERSONAL HEALTH, 4 4 TOUCH OUTPATIEN HOME CARE T OF HOSPITAL ST - 4 4 BARBARA OUTPATIEN MED CTR T [facility] EMERGENCY 81460 [facility] 4 4 BARBARA DEPARTMEN MED CTR T VISIT MODERATE SEVERITY HOME PERSONAL HEALTH, 4 4 TOUCH OUTPATIEN HOME CARE T OF HOSPITAL ST - 4 4 BARBARA OUTPATIEN MED CTR T [facility] HOME PERSONAL HEALTH, 4 4 TOUCH OUTPATIEN HOME CARE T OF HOME PERSONAL HEALTH, 4 4 TOUCH OUTPATIEN HOME CARE T OF OFFICE 57752 [facility] OUTPATIEN 4 4 BARBARA DENIA T VISIT 25 PHYSICIAN MINUTES S OFFICE 05109 INFECTIOU DEVARAJAN OUTPATIEN 4 4 S DISEASE VID T VISIT 40 CONSULT[place] MINUTES OFFICE 87822 [facility] OUTPATIEN 4 4 NECK JAM T VISIT SURGERY 10 ASSOC MINUTES OFFICE 99943 [facility] OUTPATIEN 4 4 NECK JAM T VISIT SURGERY [address] - 4 4 BARBARA OUTPATIEN MED CTR T SOLAR INSTALLATION SUPERVISOR ST OFFICE 90969 ONCOLOGY CALLI OUTPATIEN 4 4 HEMATOLOG LAW T VISIT Y CARE, [address] - 4 4 BARBARA OUTPATIEN MED CTR T SOLAR INSTALLATION SUPERVISOR [facility] ST - 4 4 BARBARA INPATIENT MED CTR SOLAR INSTALLATION SUPERVISOR OFFICE 18387 [facility] CONSULTAT 4 4 BARBARA ION NEW/ESTAB PHYSICIAN PATIENT S 60 MIN EMERGENCY 53903 [facility] DEPT 4 4 BARBARA MICAH VISIT MED CTR HIGH SEVERITY& THREAT FUNCJ OFFICE 05854 ONCOLOGY POLI CHR OUTPATIEN 4 4 HEMATOLOG T VISIT Y CARE, [address] - 4 4 BARBARA OUTPATIEN MED CTR T [facility] OFFICE 63651 ONCOLOGY POLI CHR OUTPATIEN 4 4 HEMATOLOG T VISIT Y CARE, 25 IN MINUTES OFFICE 33537 ONCOLOGY CALLI OUTPATIEN 4 4 HEMATOLOG LAW T VISIT Y CARE, [address] - 4 4 BARBARA OUTPATIEN MED CTR T [facility] 4 4 POINT - OTHER [facility] - 4 4 BARBARA OUTPATIEN MED CTR T [facility] OFFICE 35250 ST OUTPATIEN 4 4 BARBARA T VISIT 5 MED CTR MINUTES [facility] 4 4 POINT - OTHER [facility] ST - 4 4 BARBARA INPATIENT [facility] PERSONAL HEALTH, 4 4 TOUCH OTHER HOME CARE OF HOSPITAL ST - 4 4 BARBARA OUTPATIEN MED CTR T SOLAR INSTALLATION SUPERVISOR HOSPITAL ST - 4 4 BARBARA OUTPATIEN FT T CHEMO HOME PERSONAL HEALTH, 4 4 TOUCH OUTPATIEN HOME CARE T OF OFFICE 14026 [facility] 4 4 NECK JAM ION SURGERY NEW/ESTAB ASSOC PATIENT 80 MIN OFFICE [id number] [facility] OUTPATIEN 4 4 [facility] DENIA T VISIT 25 PHYSICIAN MINUTES S [facility] [place] - 4 4 [facility] OUTPATIEN INC T [place]ER[place]ENCY [address]66 [place] 4 4 [facility] DEPARTMEN INC T VISIT LOW/MODER SEVERITY EMERGENCY 16938 [facility] 4 4 CHERIE DEPARTMEN EMERGENCY T VISIT PHYS MODERATE SEVERITY HOME PERSONAL HEALTH, 4 4 TOUCH OUTPATIEN HOME CARE T OF HOME PERSONAL HEALTH, 4 4 TOUCH OTHER HOME CARE OF HOME PERSONAL HEALTH, 4 4 TOUCH OTHER HOME CARE OF [facility] ST - 4 4 [facility] OUTPATIEN MED CTR T SOLAR INSTALLATION SUPERVISOR PERIODIC [address] [facility] 4 4 [facility] AP E MED EST PATIENT PHYSICIAN 40-64YRS S HOME PERSONAL HEALTH, 4 4 TOUCH OTHER HOME CARE OF HOME PERSONAL HEALTH, 4 4 TOUCH OUTPATIEN HOME CARE T OF HOME PERSONAL HEALTH, 4 4 TOUCH OTHER HOME CARE OF [facility] ST - 4 4 [facility] OUTPATIEN MED CTR T SOLAR INSTALLATION SUPERVISOR HOME PERSONAL HEALTH, 4 4 TOUCH OTHER HOME CARE OF HOME PERSONAL HEALTH, 3 3 TOUCH OTHER HOME CARE OF OFFICE 03227 ST OUTPATIEN 3 3 [facility] T VISIT 5 MED CTR MINUTES [facility] SUPER[facility] - 3 3 [facility] OUTPATIEN MED CTR T SOLAR INSTALLATION SUPERVISOR OFFICE [address] [facility] PAT OUTPATIEN 3 3 [facility] T VISIT MED CTR [address] - 3 3 [facility] OUTPATIEN MED CTR T SOLAR INSTALLATION SUPERVISOR HOME PERSONAL HEALTH, 3 3 TOUCH OUTPATIEN HOME CARE T OF HOME PERSONAL HEALTH, 3 3 TOUCH OTHER HOME CARE OF HOME PERSONAL HEALTH, 3 3 TOUCH OUTPATIEN HOME CARE T OF HOSPITAL ST - 3 3 [facility] OUTPATIEN MEDICAL T CENTER HOME PERSONAL HEALTH, 3 3 TOUCH OTHER HOME CARE OF OFFICE [address] [facility] PAT CONSULTAT 3 3 [facility] ION MED CTR NEW/ESTAB PATIENT 60 MIN OFFICE 28414 PA[facility] TY CONSULTAT 3 3 [facility] ION NEW/ESTAB PHYSICIAN PATIENT S 60 MIN HOME PERSONAL HEALTH, 3 3 TOUCH OTHER HOME CARE OF HOME PERSONAL HEALTH, 3 3 TOUCH OUTPATIEN HOME CARE T OF HOME PERSONAL HEALTH, 3 3 TOUCH OTHER HOME CARE OF OFFICE [address] [facility] [place] OUTPATIEN 3 3 [facility] AP T VISIT 25 PHYSICIAN MINUTES S HOME PERSONAL HEALTH, 3 3 TOUCH OTHER HOME CARE OF EMERGENCY [address]24[address] ST [facility]AC[facility] DEPT 3 3 [facility] CANDE VISIT MED CTR HIGH SEVERITY& THREAT [facility] EMERGENCY [address] ST JACY 3 3 [facility] CANDE DEPARTMEN MED CTR T VISIT MODERATE SEVERITY HOME PERSONAL HEALTH, 3 3 TOUCH OTHER [...] OF HOSPITAL ST - 2 2 [facility]ado MEDICALDIVYA NT OFFICE 10027 [facility] 2 2 BARBARA DE SOUZA T VISIT 25 PHYSICIAN MINUTES S HOME PERSONAL HEALTH, 2 2 TOUCH OTHER HOME CARE OF HOME PERSONAL HEALTH, 2 2 TOUCH OTHER HOME CARE OF HOME PERSONAL HEALTH, 2 2 TOUCH OTHER HOME CARE OF HOME PERSONAL HEALTH, 2 2 TOUCH OTHER HOME CARE OF HOME PERSONAL HEALTH, 2 2 TOUCH OTHER HOME CARE OF HOSPITAL ST - 2 2 [facility] HOME PERSONAL HEALTH, 2 2 TOUCH OTHER HOME CARE OF HOSPITAL HEALTHSOU - [facility] 2 2 TOUCH OTHER HOME CARE OF HOME PERSONAL HEALTH, 2 2 TOUCH OTHER HOME CARE OF [facility] PERSONAL HEALTH, 1 1 TOUCH OTHER HOME CARE OF OFFICE [id number] [facility] 1 2 [place] AP T VISIT 15 PHYSICIAN MINUTES S OFFICE [id number] [facility] 1 2 [place] AP T VISIT 25 PHYSICIAN MINUTES S EMERGENCY 20535 ST 1 1 [place] DEPARTMEN T VISIT MEDICALCE MODERATE NTER SEVERITY [facility]PITAL ST - 1 1 [place] OUTPATIEN T MEDICALCE NTER EMERGENCY 48432 [facility] 1 1 [facility]AFAT [facility] VISIT HIGH/URGE NT SEVERITY HOME PERSONAL HEALTH, 1 1 TOUCH OTHER HOME CARE OF [facility] ST - 1 1 [facility] 14461 [facility] 1 1 [place] AP T VISIT 25 PHYSICIAN MINUTES S HOME PERSONAL HEALTH, 1 1 TOUCH OTHER [...] CARE OF HOSPITAL ST - [facility], 1 1 TOUCH OTHER HOME CARE [facility] OFFICE [id number] [facility] MIN T VISIT 25 PHYSICIAN MINUTES S [facility] - 1 1 [facility] T HOME PERSONAL HEALTH, 1 1 TOUCH OTHER HOME CARE [facility] OFFICE 41237 [facility] [place] MIN T VISIT 25 PHYSICIAN MINUTES [facility] ST - 1 1 [facility] T HOME PERSONAL HEALTH, 1 1 TOUCH OTHER [facility] 38066 [facility]ALLARD[facility] OUTPATI 0 0 S T VISIT [facility] 25 E IN MINUTES HOME PERSONAL HEALTH, 0 0 TOUCH OTHER HOME CARE OF OFFICE 64405 [facility] 0 0 [place] MIN T VISIT 25 PHYSICIAN MINUTES [facility] ST - 0 0 [place] OUTPATIEN T MEDICALCE NTER HOME PERSONAL HEALTH, 0 0 TOUCH OTHER HOME CARE OF HOME PERSONAL HEALTH, 0 0 TOUCH OTHER [facility] ST - 0 0 [facility] OUTPATIEN T MEDICALCE NTER EMERGENCY 96423 JACY 0 0 [facility] CANDE DEPARTMEN MED CTR T VISIT HIGH/URGE NT SEVERITY HOME PERSONAL HEALTH, 0 0 TOUCH OTHER HOME CARE OF EMERGENCY 29732 [facility] DEPT 0 0 [facility] AP VISIT MED CTR HIGH SEVERITY& [facility] INPATIENT MEDICALCE NTER OFFICE 89533 [facility] 0 0 NECK ION SURGERY NEW/ESTAB ASSOC PATIENT 40 MIN OFFICE 09166 [facility] 0 0 [place] MIN T VISIT 25 PHYSICIAN MINUTES S EMERGENCY 36654 [facility] DEPT 0 0 [place] PAT VISIT MED CTR HIGH SEVERITY& THREAT [facility] ST - 0 0 [facility] ST - 0 0 [facility]
--- OUTSIDE RECORDS SUMMARY | 2017-02-02 04:47 | External Medical Summary Rpt | CCD ---
Author Author , [facility] Organization [facility] Address Unknown Phone Care Team Providers Care Manager Media Relations Name Role Phone [employer] Unavailable Unavailable [...] ALICIA, Unavailable Unavailable SUMAYA III ALICIA BRANDSER UGY, Unavailable Unavailable BRANDSER GUY CALLI, CALLI Unavailable [...] [facility] COUCH, COUCH Unavailable Unavailable YRUIDIA SHARLA, Unavailable Unavailable YURIDIA SHARLA [facility] Unavailable Unavailable BEHAVIORAL, [facility] DEVARAJAN VID, Unavailable Unavailable DEVARAJAN VID DAVILA WANDA, DAVILA WANDA Unavailable Unavailable DOERGER, DOERGER Unavailable Unavailable DOERGER KIR, DOERGER Unavailable Unavailable KIR DOMET AP, DOMET AP Unavailable Unavailable [facility], Unavailable Unavailable [facility] LANE JAM, LANE JAM Unavailable Unavailable [facility] Unavailable Unavailable [facility], [facility] MINDA JANNA, MINDA Unavailable Unavailable [...] Unavailable ASSOC, [facility] Unavailable Unavailable [place], [facility] [place] [facility], [...] JAM KERRI CHR, KERRI Unavailable Unavailable [facility] Unavailable Unavailable [facility], [facility] Unavailable Unavailable CARE, [facility] KERMAN ISAIAH, KERMAN Unavailable Unavailable ISAIAH CHELITA GIA, CHELITA GIA Unavailable Unavailable FRIAS, FRIAS Unavailable Unavailable [facility] Unavailable Unavailable 9, [facility] 9 [facility] Unavailable Unavailable ACTION_I, [facility] ACTION_I [facility] N, Unavailable Unavailable [facility] N LUBBERS MARJ, LUBBERS Unavailable [...] Unavailable Unavailable OF NOTH, [facility] Unavailable Unavailable [facility], [facility] CEJA GUY, Unavailable Unavailable CEJA GUY [facility] Unavailable [place]available [place], [facility] ROEBKER JAM, ROEBKER Unavailable Unavailable [...] Unavailable [facility] Unavailable Unavailable CHEMO, [facility] Unavailable Unavailable [facility]ALTHCARE ED[facility], [facility] Unavailable Unavailable CARE, [facility] Unavailable Unavailable [facility], [facility], Unavailable Unavailable [facility] Unavailable Unavailable WATER GAS OPERATOR , [facility] Unavailable Unavailable SIEPER, [facility] Unavailable Unavailable MEDICALCENTER, [facility] Unavailable Unavailable PHYSICIANS, [facility] Unavailable Unavailable PHYSICIANS EKG, [...] 2016 Problems Code Diagnosis DOS Provider Status [id number] LOC-REL SX 11-08-2016 EPILEPSY [facility] W/SPS NOT HOME CARE INTRACT W/O SE I10 ESSENTIAL 11-08-2016 PRIMARY [facility] HYPERTENSIO HOME CARE N Q79796 HEMIPLEGIA 11-08-2016 FLW [facility] CEREBRAL HOME CARE INFARCT AFF LT NON-DOM J55293 DYSPHAGIA 11-08-2016 FOLLOWING [facility] CEREBRAL HOME CARE INFARCTION I739 PERIPHERAL 11-08-2016 VASCULAR [facility] DISEASE HOME CARE UNSPECIFIED R1312 DYSPHAGIA 11-08-2016 OROPHARYNGE [facility] AL PHASE HOME CARE Z00227 PERSONAL 11-08-2016 HISTORY OF [facility] NICOTINE HOME [...] R531 WEAKNESS 10-04-2016 [facility] CO AMBULANCE TAXIN [id number] OTH MECH 10-04-2016 ST COMP OTH GI [facility]OS [facility] IMPL GFT EDGE INIT ENC Z439 ENCOUNTER 10-04-2016 [facility] FOR CO ATTENTION AMBULANCE UNS TAXIN ARTIFICIAL OPENING Z743 NEED FOR 10-04-2016 [facility] CONTINUOUS CO SUPERVISION AMBULANCE TAXIN K9422 GASTROSTOMY 09-12-2016 ST INFECTION [facility] PHYSICIANS R00420 CELLULITIS 09-12-2016 ST OF TRUNK [facility] UNSPECIFIED PHYSICIANS G4733 OBSTRUCTIVE 08-31-2016 PATIENT SLEEP AIDS INC APNEA ADULT PEDIATRIC M5116 INTERVERTEB 08-15-2016 [facility] D/[facility] C CENTER W/RADICULOP ATHY LUMB RGN M9901 SEGMENTAL & 08-15-2016 [facility] DYSFUNCTION C CENTER CERVICAL REGION M9902 SEGMENTAL & 08-15-2016 [facility] DYSFUNCTION C CENTER THORACIC REGION R27634 OTHER 08-09-2016 [facility] SEQU[facility] OF [facility] CERE[place]AL [place] [facility] INFARCTION R262 DIFFICULTY 08-09-2016 [facility] IN WALKING [place] NOT [place] [facility] ELSEWHERE CLASSIFIED Z4689 ENCOUNTER 08-09-2016 [facility] & [facility] ADJUSTMENT [place] [facility] OTH SPEC DEVICES Z993 DEPENDENCE 08-09-2016 [facility] ON [facility] WHEELCHAIR [place] [facility] M170 [...] PHYSICIANS Z6834 BODY MASS 07-15-2016 INDEX BMI MORAN 34.0-34.9 PHYSICIANS ADULT E785 HYPERLIPIDE 07-11-2016 JULIANE [facility] UNSPECIFIED HEALTHCARE EDGE I951 ORTHOSTATIC 07-11-2016 [facility] HYPOTENSION MED CTR I9589 OTHER 07-11-2016 HYPOTENSION [facility] PHYSICIANS I959 HYPOTENSION 07-11-2016 [facility] UNSPECIFIED OF NOTH M1990 UNSPECIFIED 07-11-2016 [facility] OSTEOARTHRI MED CTR TIS UNSPECIFIED SITE R000 TACHYCARDIA 07-11-2016 [facility] UNSPECIFIED PHYSICIANS R12 HEARTBURN 07-11-2016 [facility] R7302 IMPAIRED 07-11-2016 GLUCOSE [facility] ORAL [facility] Z08 ENCOUNTER 07-11-2016 ST F/U EXAM [facility] AFTER CMPL PHYSICIANS [place] MALIG NEOPLASM S57545 PERSONAL HX 07-11-2016 MAL SADIE [facility] OTH [...] UNSPECIFIED [facility]ALTHCARE EDGE R1314 DYSPHAGIA 05-09-2016 [facility] [id number] UNS FB RESP 04-19-2016 ST TRACT PART [facility] UNS CAUS PHYSICIANS OTH INJ INT ENC C760 MALIGNANT 03-29-2016 RADIOLOGY NEOPLASM OF ASSOCIATES HEAD FACE OF NOTH AND NECK I517 CARDIOMEGAL 03-29-2016 Y [facility] MED CTR WATER GAS OPERATOR ST Z7982 SENIOR LIVING 03-29-2016 ST CURRENT USE [facility] OF ASPIRIN MED CTR WATER GAS OPERATOR ST O96333 OTHER LONG 03-29-2016 ST TERM [facility] CURRENT MED CTR WATER GAS OPERATOR DRUG ST THERAPY R2689 OTHER 03-23-2016 [facility] ABNORMALITI CO ES OF GAIT AMBULANCE AND TAXIN MOBILITY W63203 FACIAL 03-23-2016 [facility] WEAKNESS CO AMBULANCE TAXIN R413 OTHER 03-23-2016 [facility] R4182 ALTERED 03-23-2016 [facility] STATUS IMAGING ASS UNSPECIFIED R42 DIZZINESS 03-23-2016 SHAI AND CO GIDDINESS AMBULANCE TAXIN R569 UNSPECIFIED 03-23-2016 MICHELLE PHYSICIANS, CONVULSIONS [facility] M179 OSTEOARTHRI 02-23-2016 PATIENT TIS OF KNEE AIDS INC UNSPECIFIED C024 MALIGNANT 02-09-2016 HEAD & NECK NEOPLASM OF SURGERY LINGUAL ASSOC TONSIL R490 DYSPHONIA 02-09-2016 [facility] R682 DRY MOUTH 02-09-2016 HEAD & NECK UNSPECIFIED SURGERY ASSOC H63811 CELLULITIS 01-19-2016 ST OF BUTTOCK [facility] PHYSICIANS Z23 ENCOUNTER 01-19-2016 ST FOR [facility] IMMUNIZATIO PHYSICIANS N Z6838 BODY MASS 01-19-2016 ST INDEX BMI [facility] 38.0-38.9 PHYSICIANS ADULT E780 PURE 11-06-2015 ST HYPERCHOLES [facility] TEROLEMIA PHYSICIANS M1711 UNILATERAL 11-06-2015 ST PRIMARY [facility] OSTEOARTHRI PHYSICIANS TIS RIGHT KNEE H905 UNSPECIFIED 10-20-2015 [facility] SENSORINEUR MED CTR WATER GAS OPERATOR AL HEARING ST LOSS K117 DISTURBANCE 10-20-2015 ST S OF [facility] SALIVARY MED CTR WATER GAS OPERATOR SECRETION ST J384 EDEMA OF 08-07-2015 HEAD & NECK LARYNX SURGERY ASSOC W84620 ENCOUNTER 08-04-2015 ST FOR OTHER [facility] PREPROCEDUR MED CTR AL EXAMINATION G8110 SPASTIC 08-03-2015 ST HEMIPLEGIA [facility] AFFECTING PHYSICIANS UNSPECIFIED SIDE R1319 OTHER 07-13-2015 ST DYSPHAGIA [facility] MED CTR WATER GAS OPERATOR ST I313 PERICARDIAL 07-10-2015 ST EFFUSION [facility] NONINFLAMMA MED CTR WATER GAS OPERATOR TORY ST J3800 PARALYSIS 07-10-2015 ST OF VOCAL [facility] CORDS AND MED CTR WATER GAS OPERATOR LARYNX ST UNSPECIFIED J90 PLEURAL 07-10-2015 RADIOLOGY EFFUSION ASSOCIATES NOT OF NOT ELSEWHERE CLASSIFIED Q38211 PERSONAL HX 07-10-2015 ST MAL SADIE [facility] UNS SITE MED CTR WATER GAS OPERATOR LIP ORL ST CAV&PHARYNX C099 MALIGNANT 06-30-2015 HEAD & NECK NEOPLASM OF SURGERY TONSIL ASSOC UNSPECIFIED H903 SENSORINEUR 06-30-2015 HEAD & NECK AL HEARING SURGERY LOSS ASSOC BILATERAL H9319 TINNITUS 06-30-2015 HEAD & NECK UNSPECIFIED SURGERY EAR ASSOC I6990 UNS 02-28-2015 PERSONAL SEQUELAE TOUCH HOME UNSPECIFIED CARE OF CEREBROVASC ULAR DISEASE R32 UNSPECIFIED 02-28-2015 PERSONAL URINARY TOUCH HOME INCONTINENC CARE OF E U28361 REGULAR 02-23-2015 WICHO SHERMAN, OD, BILATERAL PSC H6123 IMPACTED 02-05-2015 HEAD & NECK CERUMEN SURGERY BILATERAL ASSOC Z430 ENCOUNTER 02-05-2015 HEAD & NECK FOR SURGERY ATTENTION ASSOC TO TRACHEOSTOM Y 2749 GOUT, 01-09-2015 ST UNSPECIFIED [facility] PHYSICIANS 73906 UNSPECIFIED 01-09-2015 ST ACUTE [facility] [place]CTIVI PHYSICIANS [place] 31476 01-09-2015 [facility] REGION 9 9349 FOREIGN 01-09-2015 ST BODY IN [facility] RESPIRATORY PHYSICIANS TREE UNSPECIFIED 2114 BENIGN 01-07-2015 ST NEOPLASM OF [facility] RECTUM AND MED CTR WATER GAS OPERATOR ANAL CANAL ST 5690 ANAL AND 01-07-2015 ST. RECTAL [facility] POLYP PHYSICIANS END V1002 PERS HX MAL 01-07-2015 ST NEOPLSM [facility] OTH&UNS MED CTR WATER GAS OPERATOR PART ORL ST CAV&PHARYNX V7651 SPECIAL 01-07-2015 ST. SCREENING [facility] FOR PHYSICIANS MALIGNANT END NEOPLASMS COLON 4389 UNSPEC LATE 12-27-2014 PERSONAL EFF TOUCH HOME CEREBRVASC CARE OF DZ DUE CEREBRVASC DZ 03996 UNSPECIFIED 12-27-2014 PERSONAL URINARY TOUCH HOME INCONTINENC CARE OF E 1416 MALIGNANT 12-19-2014 ST NEOPLASM OF [facility] LINGUAL MED CTR WATER GAS OPERATOR TONSIL ST 1619 MALIGNANT 12-19-2014 ONCOLOGY NEOPLASM OF HEMATOLOGY LARYNX CARE, IN UNSPECIFIED SITE V6759 OTHER 12-19-2014 ST FOLLOW-UP [facility] EXAMINATION MED CTR WATER GAS OPERATOR OTHER ST 65536 OCCLUSION&S 11-10-2014 ST TENOSIS [facility] VERTEBRAL PHYSICIANS ARTERY W/INFARCT 7295 PAIN IN 11-10-2014 ST SOFT [facility] TISSUES OF PHYSICIANS LIMB 7871 HEARTBURN 11-10-2014 ST [facility] PHYSICIANS 4618 OTHER ACUTE 09-09-2014 HEAD & NECK SINUSITIS SURGERY ASSOC V672 CHEMOTHERAP 09-09-2014 HEAD & NECK Y FOLLOW-UP SURGERY ASSOC EXAMINATION 1460 MALIGNANT 09-01-2014 ST NEOPLASM OF [facility] TONSIL MED CTR WATER GAS [place] ST 91792 OSTEOARTHRO 09-01-2014 ST SIS UNSPEC [facility] WHETHER MED CTR WATER GAS OPERATOR GEN/LOC ST ANK&FOOT 41266 OBSTRUCTIVE 08-11-2014 PATIENT SLEEP AIDS INC APNEA 77009 LOSS OF 08-05-2014 [place] [address] UNSPEC 07-03-2014 ST HEMIPLEGIA [facility] AFFECTING PHYSICIANS UNSPEC SIDE 65167 ATAXIA 07-03-2014 ST LATE EFFECT [facility] OF PHYSICIANS CEREBROVASC ULAR DISEASE 4400 ATHEROSCLER 06-24-2014 ST OSIS OF [facility] AORTA MED CTR WATER GAS OPERATOR ST 5920 CALCULUS OF 06-24-2014 ST KIDNEY [facility] MED CTR WATER GAS [facility] [facility] 67645 UNSPECIFIED 05-02-2014 ST CEREBRAL [facility] ARTERY PHYSICIANS OCCLUSION W/INFARCT 61167 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 STAPH CONSULTAN AUREUS SEPTICEMIA 7907 BACTEREMIA 04-28-2014 INFECTIOUS DISEASE CONSULTAN V153 PERS HX 03-28-2014 ST IRRADIATION [facility] PRESENTING MED CTR WATER GAS OPERATOR HAZARDS ST HEALTH V5411 AFTERCARE 03-26-2014 [facility] MEDICAL TRAUMATIC IMAGING ASS FRACTURE UPPER ARM V7260 LABORATORY 03-24-2014 ST EXAMINATION [facility] MED CTR WATER GAS OPERATOR UNSPECIFIED ST 74654 OTHER LATE 03-15-2014 PERSONAL EFFECTS OF TOUCH HOME CEREBROVASC CARE OF ULAR DISEASE V441 GASTROSTOMY 03-15-2014 [place] [address] CLOSED 03-14-2014 [place] FRACTURE OF MEM HOS[facility] INC UNSPECIFIED PART OF HUMERUS 51276 CLOSED 03-14-2014 [facility] FRACTURE OF PHYSICIANS SHAFT OF GROUP HUMERUS 1490 MALIGNANT 03-13-2014 RADIOLOGY NEOPLASM OF ASSOCIATES PHARYNX OF [facility] UNSPECIFIED 1991 OTHER 03-13-2014 ST MALIGNANT [facility] NEOPLASM OF MED CTR WATER GAS OPERATOR ST UNSPECIFIED SITE 4730 CHRONIC 03-13-2014 ST MAXILLARY [facility] SINUSITIS MED CTR WATER GAS OPERATOR ST 7856 ENLARGEMENT 03-13-2014 ST OF LYMPH [facility] NODES MED CTR [place] [address] GENERALIZED 03-07-2014 ST PAIN [facility] MED CTR W[place] 64625 CLOSED 03-07-2014 ST FRACTURE [facility] UNSPEC PART MED CTR WATER GAS OPERATOR UPPER END ST HUMERUS 29843 CLOSED 03-07-2014 RADIOLOGY FRACTURE OF ASSOCIATES SURGICAL OF [facility] NECK OF HUMERUS 70398 OTHER 03-07-2014 ADVANCED CLOSED TECHNOLOGIE FRACTURES S INC OF UPPER END OF HUMERUS 46508 LEUKOCYTOPE 02-25-2014 ST CHIVO [facility] UNSPECIFIED PHYSICIANS 3670 HYPERMETROP 02-20-2014 WICHO SHERMAN, OD, PSC 12061 VITREOUS 02-20-2014 WICHO SHERMAN, OD, N PSC 00761 VOMITING 02-18-2014 ST ALONE [facility] PHYSICIANS 2449 UNSPECIFIED 02-12-2014 JIBRINI MHA HYPOTHYROID ISM 91240 OTHER 02-12-2014 JIBRINI MHA CONVULSIONS V440 TRACHEOSTOM 02-12-2014 JIBRINI MHA Y STATUS 05219 FEVER 02-05-2014 JIBRINI MHA UNSPECIFIED V580 RADIOTHERAP 01-23-2014 ST Y [facility] MED CTR WATER GAS OPERATOR ST V5811 ENCOUNTER 01-23-2014 ST FOR [facility] ANTINEOPLAS MED CTR WATER GAS OPERATOR TIC ST CHEMOTHERAP Y V5869 LONG-TERM 01-23-2014 ST (CURRENT) [facility] USE OF MED CTR WATER GAS OPERATOR OTHER ST MEDICATIONS 7850 UNSPECIFIED 01-22-2014 JIBRINI MHA TACHYCARDIA 83056 NAUSEA WITH 01-22-2014 JIBRINI MHA VOMITING 39648 ABDOMINAL 01-22-2014 JIBRINI MHA PAIN, UNSPECIFIED SITE 4019 UNSPECIFIED 01-15-2014 JIBRINI MHA ESSENTIAL HYPERTENSIO N 2761 HYPOSMOLALI 01-07-2014 ST TY AND/OR BAR[facility]A HYPONATREMI PHYSICIANS A 05184 CHEST PAIN 01-07-2014 ST UNSPECIFIED [facility] PHYSICIANS 1950 MALIGNANT 01-03-2014 ONCOLOGY NEOPLASM OF HEMATOLOGY HEAD FACE CARE, IN AND NECK 41473 NEUTROPENIA 01-03-2014 ST [facility] UNSPECIFIED PHYSICIANS 2859 UNSPECIFIED 12-30-2013 [place] [address] DRUG 12-29-2013 ST INDUCED [facility] NEUTROPENIA MED CTR WATER GAS OPERATOR ST 4589 UNSPECIFIED 12-29-2013 ST [facility] HYPOTENSION MED CTR WATER GAS [place] [facility] 31438 DYSPLASIA 12-29-2013 ST OF ANUS [facility] PHYSICIANS 63247 OTHER 12-27-2013 RADIOLOGY NONSPECIFIC ASSOCIATES ABNORMAL OF [facility] FINDING OF LUNG FIELD 56658 DEHYDRATION 12-13-2013 ONCOLOGY HEMATOLOGY CARE, [place] 5277 DISTURBANCE 12-13-2013 ONCOLOGY OF HEMATOLOGY SALIVARY CARE, IN SECRETION V5881 FITTING AND 12-04-2013 RADIOLOGY ADJUSTMENT ASSOCIATES OF OF [facility] VASCULAR CATHETER 4660 ACUTE 11-22-2013 [facility] BRONCHITIS [facility] & REHABILI 7197 DIFFICULTY 11-22-2013 [facility] IN WALKING POINT C[facility] & REHABILI 85989 MUSCLE 11-22-2013 [facility] WEAKNESS POINT CARE (GENERALIZE & REHABILI D) 56834 DYSPHAGIA 11-22-2013 [facility] UNSPECIFIED POINT CARE & REHABILI V550 ATTENTION 11-22-2013 [facility] TO POINT CARE TRACHEOSTOM & REHABILI Y V551 ATTENTION 11-22-2013 [facility] TO POINT CARE GASTROSTOMY & REHABILI V5789 OTHER 11-22-2013 [facility] SPECIFIED POINT CARE REHABILITAT & REHABILI ION PROCEDURE OTHER 75142 UNSPECIFIED 11-04-2013 JIBRINI MHA CONSTIPATIO N 15720 UNSPECIFIED 11-01-2013 INDEPENDENT DENTAL CARIES ANESTHESIOL OGIST 1471 MALIGNANT 10-31-2013 RADIOLOGY NEOPLASM ASSOCIATES POSTERIOR OF NOT WALL NASOPHARYNX 2390 NEOPLASM 10-31-2013 RADIOLOGY UNSPECIFIED ASSOCIATES NATURE OF [facility] DIGESTIVE SYSTEM V5882 ENCOUNTER 10-31-2013 RADIOLOGY FITTING&ADJ ASSOCIATES OF [facility] NON-VASCULA R CATHETER NEC 2639 UNSPECIFIED 10-29-2013 INDEPENDENT PROTEIN-LESLIE ANESTHESIOL ORIE OGIST MALNUTRITIO N 7833 FEEDING 10-29-2013 ST ROYALIE [facility] S AND PHYSICIANS MISMANAGEME NT 7842 SWELLING 10-29-2013 ST MASS OR [facility] LUMP IN PHYSICIANS HEAD AND NECK 22067 HYPOXEMIA 10-29-2013 ST [facility] PHYSICIANS 7991 RESPIRATORY 10-28-2013 HEAD & NECK ARREST SURGERY ASSOC 41646 LOC-REL 10-22-2013 ST EPILEPSY & BARBARA ES W/SPS FT CHEMO W/O INTRACTABL EPIL 19564 HYPERTROPHY 10-22-2013 INDEPENDENT OF TONSILS ALONE ANESTHESIOL OGIST V1254 PERSONAL HX 10-22-2013 ST TIA & CI [facility] W/O FT CHEMO RESIDUAL DEFICITS V1582 PERS HX 10-22-2013 ST TOBACCO USE [facility] PRESENTING FT CHEMO [facility] V5866 LONG-TERM 10-22-2013 ST USE OF BAR[facility] ASPIRIN FT CHEMO V7284 UNSPECIFIED 10-22-2013 ST [facility] PRE-OPERATI PHYSICIANS VE EKG EXAMINATION V8542 BODY MASS 10-22-2013 ST INDEX [facility]A 45.0-49.9 FT CHEMO ADULT 2469 UNSPECIFIED 10-02-2013 ST DISORDER [facility] OF THYROID MED CTR WATER GAS [place]ATOR [facility] 57290 UNSPECIFIED 10-02-2013 ST SLEEP [facility] APNEA MED CTR WATER GAS OPERATOR ST V641 SURG/OTH 10-02-2013 ST PROC NOT [facility] DONE MED CTR WATER GAS OPERATOR BECAUSE ST CONTRAINDIC ATION 4748 OTHER 09-30-2013 ST CHRONIC [facility] DISEASE OF FT CHEMO TONSILS AND ADENOIDS 50916 OTHER 09-30-2013 ST DISEASES OF [facility] NASAL FT CHEMO CAVITY AND SINUSES 9330 FOREIGN 09-13-2013 ST BODY IN [facility] PHARYNX PHYSICIANS 9085 LATE EFFECT 08-29-2013 SHAI OF FOREIGN CO BODY IN AMBULANCE ORIFICE TAXIN 9331 FOREIGN 08-29-2013 [place] BODY IN [facility] LARYNX INC 2724 OTHER AND 07-05-[address] UNSPECIFIED [facility] PHYSICIANS HYPERLIPIDE JULIANE 79124 OSTEOARTHRO 07-05-2013 ST SIS UNSPEC [facility] WHETHER PHYSICIANS GEN/LOC LOWER LEG 70422 IMPAIRED 07-05-2013 GLUCOSE [facility] TOLERANCE PHYSICIANS TEST V6809 OTHER ISSUE 07-05-2013 OF MEDICAL [facility] PHYSICIANS CERTIFICATE S V700 ROUTINE 07-05-2013 GENERAL [facility] MEDICAL PHYSICIANS EXAM@HEALTH CARE FACL 2720 PURE 03-14-2013 ST HYPERCHOLES [facility] TEROLEMIA PHYSICIANS V0481 NEED 03-14-2013 PROPHYLACTI BARBAR[facility] C PHYSICIANS VACCINATION &INOCULATIO N FLU V7644 SPECIAL 03-14-2013 SCREENING BAR[facility] MALIGNANT PHYSICIANS NEOPLASM OF PROSTATE 62123 OBESITY, 02-12-2013 UNSPECIFIED [facility] 53635 OTHER 02-12-2013 MALAISE [facility] FATIGUE [facility] CENTER 85524 OTHER 02-12-2013 [facility] [place] [address] SPASM OF 01-01-2013 MUSCLE [facility]AN PHYSICIANS 7840 HEADACHE 10-15-2012 [facility] ASSOCIATES OF [facility] 7019 UNSPECIFIED 01-18-2012 [facility] HYPERTROPHI PHYSICIANS C&ATROPHIC CONDITION SKIN 7820 DISTURBANCE 01-18-2012 OF SKIN [facility] SENSATION PHYSICIANS 17792 DIAB W/O 10-28-2011 COMP TYPE M[facility]AN II/UNS NOT PHYSICIANS STATED UNCNTRL 7804 DIZZINESS 06-20-2011 THE [facility] ST[facility] GIDDINESS 3674 PRESBYOPIA 06-07-2011 WICHO SHERMAN OD, PSC V571 OTHER 06-02-2011 [facility] [place] [address] OTH 06-07-2010 MUSCULOS[place]EL [facility] [address] HEMIPL 04-28-2010 [facility] UNSPEC SIDE HOSPITAL DUE CEREBRVASC DISEASE 77582 UNSPEC 01-15-2010 EPILEPSY [facility] WITHOUT MEDICALCENT MENTION ER INTRACT EPILEPSY V4589 OTHER 01-15-2010 POSTSURGICA [facility] L STATUS MEDICALCENT OTHER ER 5849 ACUTE 12-11-2009 [facility]IDNEY [facility] FAILURE PHYSICIANS UNSPECIFIED 51180 GEN CONVUL 12-10-2009 [facility] EPILEPSY HEALTHCARE W/O MENTION IN INTRACT EPILEPSY 42279 LOC-REL 12-10-2009 EPILEPSY & BAR[facility]A ES W/SPS MED CTR W/INTRACTAB LE EPIL 41568 HTN CKD UNS 12-10-2009 ST W/CKD [facility] STAGE I MEDICALCENT THRU STAGE ER IV/UNS 4439 UNSPECIFIED 12-10-2009 PERIPHERAL [facility] VASCULAR MEDICALCENT DISEASE ER 5859 CHRONIC 12-10-2009 KIDNEY [facility] DISEASE MEDICALCENT UNSPECIFIED ER 7810 ABNORMAL 12-10-2009 [facility] INVOLUNTARY CO MOVEMENTS AMBULANCE TAXIN V854 BODY MASS 12-10-2009 ST INDEX 40 [facility] AND OVER MEDICALCENT ADULT ER 4011 ESSENTIAL 11-27-2009 HEAD & NECK HYPERTENSIO SURGERY N, BENIGN ASSOC 48966 ACUTE 11-27-2009 HEAD & NECK GINGIVITIS SURGERY NONPLAQUE ASSOC INDUCED 33915 STOMATITIS 11-27-2009 HEAD & NECK AND SURGERY MUCOSITIS ASSOC UNSPECIFIED 7802 SYNCOPE AND 11-17-2009 [facility] PHYSICIANS 67515 CEREBRAL 11-15-2009 [facility] WITH MED CTR CEREBRAL INFARCTION 17475 PAIN IN 11-03-2009 RADIOLOGY JOINT, ASSOCIATES LOWER LEG PSC 87866 PAIN IN 09-28-2009 [facility] Medications Na ND Rx Da Fi [...] 50 1- 2- 00 00 L ve [place] 62 20 20 94 [place] 01 [...] CA RA 40 17 17 56 RE [place] 5 32 DE PH 5 AR MA [...] 50 7- 8- 00 00 L ve W[place] 62 20 20 94 [place] 01 [...] CA RA 40 17 17 56 RE [place] 5 32 DE PH 5 AR MA [...] 50 2- 7- 00 00 L ve [place] 62 20 20 94 [place] 01 [...] 50 8- 2- 00 00 L ve [place] 62 20 20 94 [place] IL 01 [...] 50 0- 5- 00 00 L ve [place] 62 20 20 92 [place] IL 01 [...] CA RA 40 17 17 56 RE [place] 5 32 DE PH 5 AR MA [...] CY MG #5 CA PS UL E WY 00 03 04 12 6 00 TO [...] 50 2- 4- 00 00 L ve WY 62 20 20 92 [place] IL 01 [...] 50 1- 4- 00 00 L ve WY 62 20 20 92 CA IL 01 [...] CA RA 40 17 17 98 RE NJ 5 85 DE PH 5 AR MA [...] 4- 9- 00 L 58 FE ve WY 62 20 20 0 CA R IL 01 16 16 RE NJ 0 CH 20 PH AE AR L MG MA G CY TA BL #5 ET AT 60 05 02 3 30 30 TO 88 SC Ac OR 50 -0 -0 0. TA 08 MINAYA ti VA 52 4- 9- 00 L [address] 58 20 20 0 CA R AT 00 15 16 RE NJ IN 8 CH PH AE 40 AR [...] CA R CE 50 15 16 RE NJ TA 1 CH M PH AE 50 [...] CA R AT 00 15 16 RE NJ IN 8 CH PH AE 40 AR L MA G MG CY TA #5 BL ET LI 00 01 01 3 30 30 TO 90 SC Ac SI 59 -0 -0 0. TA 23 MINAYA ti NO 10 4- 4- 00 L 58 FE ve [place] 40 20 20 0 CA R [place] 81 16 16 RE NJ 0 CH 20 PH AE AR L MG MA G CY TA BL #5 ET LE 00 10 01 11 30 30 TO 89 SC Ac VO 78 -2 -0 0. TA 59 MINAYA ti TH 15 7- 4- 00 L 38 FE ve YR 18 20 20 0 CA R OX 11 15 16 RE NJ IN 0 CH E PH AE 50 AR L MA G MC CY G TA #5 BL ET LE 16 12 12 6 15 30 TO 90 SC Ac VE 71 -2 -2 00 TA 10 MINAYA ti TI 40 1- 1- .0 L 89 FE ve RA 35 20 20 00 CA R CE 50 15 15 RE NJ TA 1 CH M PH AE 50 [...] 9- 0- 00 L 33 FE ve [place] 19 20 20 0 CA R [place] 71 15 15 RE NJ 7 CH 20 PH AE AR L MG MA G CY TA BL #5 ET LE 00 10 11 11 30 30 TO 89 SC Ac VO 78 -2 -3 0. TA 59 MINAYA ti TH 15 7- 0- 00 L 38 FE ve YR 18 20 20 0 CA R OX 11 15 15 RE NJ IN 0 CH E PH AE 50 AR L MA G MC CY G TA #5 BL ET AT 60 05 11 3 30 30 TO 88 SC Ac OR 50 -0 -3 0. TA 08 MINAYA ti VA 52 4- 0- 00 L [address] 58 20 20 0 CA R AT 00 15 15 RE NJ IN 8 CH PH AE 40 AR [...] CA R CE 71 15 15 RE NJ TA 2 CH M PH AE 50 [...] 9- 2- 00 L 33 FE ve [place] 19 20 20 0 CA R [place] 71 15 15 RE NJ 7 CH 20 PH AE AR L [...] CA R AT 00 15 15 RE NJ IN 8 CH PH AE 40 AR L MA G MG CY TA #5 BL ET LE 00 10 10 11 30 30 TO 89 SC Ac VO 37 -2 -2 0. TA 59 MINAYA ti TH 81 7- 7- 00 L 38 FE ve YR 80 20 20 0 CA R OX 30 15 15 RE NJ IN 1 CH E PH AE 50 AR L MA G MC CY G TA #5 BL ET LE 68 05 10 6 15 30 TO 88 SC Ac VE 00 -0 -1 00 TA 09 MINAYA ti TI 10 5- 2- .0 L 84 FE ve RA 11 20 20 00 CA R CE 70 15 15 RE NJ TA 3 CH M PH AE 50 [...] 9- 7- 00 L 33 FE ve [place] 19 20 20 0 CA R [place] 71 15 15 RE NJ 7 CH 20 PH AE AR L MG MA G CY TA BL #5 ET LE 68 05 09 6 15 30 TO 88 SC Ac VE 00 -0 -1 00 TA 09 MINAYA ti TI 10 5- 1- .0 L 84 FE ve RA 11 20 20 00 CA R CE 70 15 15 RE NJ TA 3 CH M PH AE 50 [...] CA R AT 00 15 15 RE NJ IN 8 CH PH AE 40 AR L MA G MG CY TA #5 BL ET LE 00 12 09 11 30 30 TO 86 SC Ac VO 37 -0 -1 0. TA 73 MINAYA ti TH 81 2- 1- 00 L 82 FE ve YR 80 20 20 0 CA R OX 30 14 15 RE NJ IN 1 CH E PH AE 50 [...] 9- 9- 00 L 33 FE ve [place] 19 20 20 0 CA R [place] 71 15 15 RE NJ 7 CH 20 PH AE AR L MG MA G CY TA BL #5 ET AL 00 06 08 11 30 30 TO 88 SC Ac LO 37 -1 -1 0. TA 42 MINAYA ti PU 80 2- 9- 00 L 15 FE ve RI 18 20 20 0 CA R NO 10 15 15 RE NJ L 5 CH 30 PH AE 0 [...] CA R AT 30 15 15 RE NJ IN 5 CH PH AE 40 AR L MA G MG CY TA #5 BL ET LE 68 05 08 6 15 30 TO 88 SC Ac VE 00 -0 -0 00 TA 09 MINAYA ti TI 10 5- 7- .0 L 84 FE ve RA 11 20 20 00 CA R CE 70 15 15 RE NJ TA 3 CH M PH AE 50 [...] CA R OX 11 14 15 RE NJ IN 0 CH E PH AE 50 [...] CA R NO 40 15 15 RE NJ L 5 CH 30 PH AE 0 AR L MG MA G CY TA BL #5 ET LI 31 04 07 2 30 30 TO 88 SC Ac SI 72 -2 -2 0. TA 03 MINAYA ti NO 20 8- 0- 00 L 31 FE ve [place] 42 20 20 0 CA R [place] 00 15 15 RE NJ 1 CH 20 PH AE AR L [...] CA R CE 70 15 15 RE NJ TA 3 CH M PH AE 50 [...] CA R OX 11 14 15 RE NJ IN 0 CH E PH AE 50 AR L MA G MC CY G TA #5 BL ET AT 55 05 07 3 30 30 TO 88 SC Ac OR 11 -0 -0 0. TA 08 MINAYA ti VA 10 4- 3- 00 L [address] 12 20 20 0 CA R AT 30 15 15 RE NJ IN 5 CH PH AE 40 AR [...] CA R NO 40 15 15 RE NJ L 5 CH 30 PH AE 0 [...] 8- 8- 00 L 31 FE ve [place] 19 20 20 0 CA R [place] 71 15 15 RE NJ 7 CH 20 PH AE AR L MG MA G CY TA BL #5 ET LE 68 05 06 6 15 30 TO 88 SC Ac VE 00 -0 -0 00 TA 09 MINAYA ti TI 10 5- 5- .0 L 84 FE ve RA 11 20 20 00 CA R CE 70 15 15 RE NJ TA 3 CH M PH AE 50 AR L 0 MA G MG CY TA #5 BL ET LE 00 12 05 11 30 30 TO 86 SC Ac VO 78 -0 -2 0. TA 73 MINAYA ti TH 15 2- 7- 00 L 82 FE ve YR 18 20 20 0 CA R OX 11 14 15 RE NJ IN 0 CH E PH AE 50 AR L MA G MC CY G TA #5 BL ET AT 55 05 05 3 30 30 TO 88 SC Ac OR 11 -0 -2 0. TA 08 MINAYA ti VA 10 4- 7- 00 L [address] 12 20 20 0 CA R AT 30 15 15 RE NJ IN 5 CH PH AE 40 AR [...] CA R CE 70 15 15 RE NJ TA 3 CH M PH AE 50 AR L 0 MA G MG CY TA #5 BL ET NO 00 03 05 2 60 30 TO 87 SC Ac RT 59 -0 -0 0. TA 56 MINAYA ti RI 15 4- 4- 00 L 49 FE ve PT 78 20 20 0 CA R YL 80 15 15 RE NJ IN 5 CH E PH AE HC AR L L MA G 50 CY MG #5 CA P AT 55 04 04 3 30 30 TO 88 SC Ac OR 11 -3 -3 0. TA 05 MINAYA ti VA 10 0- 0- 00 L [address] 12 20 20 0 CA R AT 30 15 15 RE NJ IN 5 CH PH AE 40 AR L MA G MG CY TA #5 BL ET AL 00 06 04 11 30 30 TO 85 SC Ac LO 59 -0 -3 0. TA 28 MINAYA ti PU 15 2- 0- 00 L 63 FE ve RI 54 20 20 0 CA R NO 40 14 15 RE NJ L 5 CH 30 PH AE 0 AR L MG MA G CY TA BL #5 ET LI 68 04 04 2 30 30 TO 88 SC Ac SI 00 -2 -2 0. TA 03 MINAYA ti NO 10 8- 8- 00 L 31 FE ve [place] 20 20 20 0 CA R [place] 80 15 15 RE NJ 8 CH 20 PH AE AR L MG MA G CY TA BL #5 ET LE 00 12 04 11 30 30 TO 86 SC Ac VO 78 -0 -1 0. TA 73 MINAYA ti TH 15 2- 6- 00 L 82 FE ve YR 18 20 20 0 CA R OX 11 14 15 RE NJ IN 0 CH E PH AE 50 AR L MA G MC CY G TA #5 BL ET LE 68 04 04 6 15 30 TO 84 SC Ac VE 00 -2 -0 00 TA 95 MINAYA ti TI 10 1- 6- .0 L 14 FE ve RA 11 20 20 00 CA R CE 70 14 15 RE NJ TA 3 CH M PH AE 50 AR L 0 MA G MG CY TA #5 BL ET NO 00 03 04 2 60 30 TO 87 SC Ac RT 59 -0 -0 0. TA 56 MINAYA ti RI 15 4- 6- 00 L 49 FE ve PT 78 20 20 0 CA R YL 80 15 15 RE NJ IN 5 CH E PH AE HC AR L L MA G 50 CY MG #5 CA P AL 00 06 03 11 30 30 TO 85 SC Ac LO 59 -0 -2 0. TA 28 MINAYA ti PU 15 2- 7- 00 L 63 FE ve RI 54 20 20 0 CA R NO 40 14 15 RE NJ L 5 CH 30 PH AE 0 AR L MG MA G CY TA BL #5 ET AT 55 04 03 3 30 30 TO 84 SC Ac OR 11 -0 -2 0. TA 80 MINAYA ti VA 10 2- 7- 00 L [address] 12 20 20 0 CA R AT 30 14 15 RE NJ IN 5 CH PH AE 40 AR L MA G MG CY TA #5 BL ET LI 68 12 03 2 30 30 TO 87 SC Ac SI 00 -3 -2 0. TA 02 MINAYA ti NO 10 1- 5- 00 L 65 FE ve [place] 20 20 20 0 CA R [place] 80 14 15 RE NJ 8 CH 20 PH AE AR L MG MA G CY TA BL #5 ET LE 68 04 03 6 15 30 TO 84 SC Ac VE 00 -2 -0 00 TA 95 MINAYA ti TI 10 1- 4- .0 L 14 FE ve RA 11 20 20 00 CA R CE 70 14 15 RE NJ TA 3 CH M PH AE 50 AR L 0 MA G MG CY TA #5 BL ET NO 00 03 03 2 60 30 TO 87 SC Ac RT 59 -0 -0 0. TA 56 MINAYA ti RI 15 4- 4- 00 L 49 FE ve PT 78 20 20 0 CA R YL 80 15 15 RE NJ IN 5 CH E PH AE HC [...] CA R NO 40 14 15 RE NJ L 5 CH 30 PH AE 0 AR L MG MA G CY TA BL #5 ET LI 68 12 02 2 30 30 TO 87 SC Ac SI 00 -3 -2 0. TA 02 MINAYA ti NO 10 1- 1- 00 L 65 FE ve [place] 20 20 20 0 CA R [place] 80 14 15 RE NJ 8 CH 20 PH AE AR L MG MA G CY TA BL #5 ET AT 55 04 02 3 30 30 TO 84 SC Ac OR 11 -0 -1 0. TA 80 MINAYA ti VA 10 2- 9- 00 L [address] 12 20 20 0 CA R AT 30 14 15 RE NJ IN 5 CH PH AE 40 AR L MA G MG CY TA #5 BL ET LE 00 12 02 11 30 30 TO 86 SC Ac VO 78 -0 -1 0. TA 73 MINAYA ti TH 15 2- 7- 00 L 82 FE ve YR 18 20 20 0 CA R OX 19 14 15 RE NJ IN 2 CH E PH AE 50 AR L MA G MC CY G TA #5 BL ET NO 00 06 01 2 60 30 TO 85 SC Ac RT 59 -0 -2 0. TA 28 MINAYA ti RI 15 2- 9- 00 L 65 FE ve PT 78 20 20 0 CA R YL 80 14 15 RE NJ IN 5 CH E PH AE HC AR L L MA G 50 CY MG #5 CA P LE 68 04 01 6 15 30 TO 84 SC Ac VE 00 -2 -2 00 TA 95 MINAYA ti TI 10 1- 9- .0 L 14 FE ve RA 11 20 20 00 CA R CE 70 14 15 RE NJ TA 3 CH M PH AE 50 [...] 1- 1- 00 L 65 FE ve [place] 42 20 20 0 CA R [place] 01 14 14 RE NJ 0 CH 20 PH AE AR L MG MA G CY TA BL #5 ET LE 68 04 12 6 15 30 TO 84 SC Ac VE 00 -2 -3 00 TA 95 MINAYA ti TI 10 1- 0- .0 L 14 FE ve RA 11 20 20 00 CA R CE 70 14 14 RE NJ TA 3 CH M PH AE 50 AR L 0 MA G MG CY TA #5 BL ET AL 00 06 12 11 30 30 TO 85 SC Ac LO 59 -0 -3 0. TA 28 MINAYA ti PU 15 2- 0- 00 L 63 FE ve RI 54 20 20 0 CA R NO 40 14 14 RE NJ L 5 CH 30 PH AE 0 AR L MG MA G CY TA BL #5 ET AT 60 04 12 3 30 30 TO 84 SC Ac OR 50 -0 -3 0. TA 80 MINAYA ti VA 52 2- 0- 00 L [address] 58 20 20 0 CA R AT 00 14 14 RE NJ IN 8 CH PH AE 40 AR L MA G MG CY TA #5 BL ET NO 00 06 12 2 60 30 TO 85 SC Ac RT 59 -0 -3 0. TA 28 MINAYA ti RI 15 2- 0- 00 L 65 FE ve PT 78 20 20 0 CA R YL 80 14 14 RE NJ IN 5 CH E PH AE HC AR L L MA G 50 CY MG #5 CA P LE 00 12 12 11 30 30 TO 86 SC Ac VO 78 -0 -3 0. TA 73 MINAYA ti TH 15 2- 0- 00 L 82 FE ve YR 18 20 20 0 CA R OX 19 14 14 RE NJ IN 2 CH E PH AE 50 [...] CA R AT 00 14 14 RE NJ IN 8 CH PH AE 40 AR L MA G MG CY TA #5 BL ET LI 00 05 12 2 30 30 TO 85 SC Ac SI 18 -0 -0 0. TA 04 MINAYA ti NO 50 1- 2- 00 L 71 FE ve [place] 10 20 20 0 CA R IL 21 14 14 RE NJ 0 CH 20 PH AE AR L MG MA G CY TA BL #5 ET LE 00 12 12 11 30 30 TO 86 SC Ac VO 78 -0 -0 0. TA 73 MINAYA ti TH 15 2- 2- 00 L 82 FE ve YR 18 20 20 0 CA R OX 11 14 14 RE NJ IN 0 CH E PH AE 50 [...] 22 6- 7- 00 21 IN ve NJ 90 20 20 0 CA 1 I [...] I RA 40 14 14 RE MH NJ 5 AM DE PH AD 5 AR [...] -0 -0 0. ME 22 BR ti [place] 40 1- 1- 00 74 IN ve [...] 22 6- 6- 00 21 IN ve NJ 90 20 20 0 CA 1 I [...] -1 -1 0. ME 79 BR ti [place] 80 6- 6- 00 21 IN ve OL 01 20 20 0 CA 2 I OL 80 14 14 RE MH 5 AM TA PH AD RT AR B RA MA TE CY 25 MG TA B W[place] 00 09 09 5 40 1 HO [...] 50 1- 1- 00 50 IN ve W[place] 10 20 20 0 CA 7 I [...] 8 MA MG CY TA BL ET WY 00 08 08 5 70 2 HO [...] CA R CE 70 14 14 RE NJ TA 3 CH M PH AE 50 AR L 0 MA G MG CY TA BL ET LI 68 05 06 2 30 30 TO 85 SC Ac SI 00 -0 -2 0. TA 04 MINAYA ti NO 10 1- 6- 00 L 71 FE ve [place] 20 20 20 0 CA R [place] 80 14 14 RE NJ 8 CH 20 PH AE AR L MG MA G CY TA BL ET AT 60 04 06 3 30 30 TO 84 SC Ac OR 50 -0 -0 0. TA 80 MINAYA ti VA 52 2- 3- 00 L [address] 58 20 20 0 CA R AT 00 14 14 RE NJ IN 8 CH PH AE 40 AR L MA G MG CY TA BL ET NO 00 06 06 2 60 30 TO 85 SC Ac RT 59 -0 -0 0. TA 28 MINAYA ti RI 15 2- 2- 00 L 65 FE ve PT 78 20 20 0 CA R YL 80 14 14 RE NJ IN 5 CH E PH AE HC AR L L MA G 50 CY MG CA P AL 00 06 06 11 30 30 TO 85 SC Ac LO 59 -0 -0 0. TA 28 MINAYA ti PU 15 2- 2- 00 L 63 FE ve RI 54 20 20 0 CA R NO 40 14 14 RE NJ L 5 CH 30 PH AE 0 AR L MG MA G CY TA BL ET LE 68 04 05 6 15 30 TO 84 SC Ac VE 00 -2 -2 00 TA 95 MINAYA ti TI 10 1- 7- .0 L 14 FE ve RA 11 20 20 00 CA R CE 70 14 14 RE NJ TA 3 CH M PH AE 50 AR L 0 MA G MG CY TA BL ET LI 68 05 05 2 30 30 TO 85 SC Ac SI 00 -0 -0 0. TA 04 MINAYA ti NO 10 1- 1- 00 L 71 FE ve [place] 20 20 20 0 CA R [place] 80 14 14 RE NJ 8 CH 20 PH AE AR L MG MA G CY TA BL ET AT 60 04 05 3 30 30 TO 84 SC Ac OR 50 -0 -0 0. TA 80 MINAYA ti VA 52 2- 1- 00 L [address] 58 20 20 0 CA R AT 00 14 14 RE NJ IN 8 CH PH AE 40 AR L MA G MG CY TA BL ET NO 00 02 05 2 60 30 TO 84 SC Ac RT 59 -1 -0 0. TA 44 MINAYA ti RI 15 8- 1- 00 L 13 FE ve PT 78 20 20 0 CA R YL 80 14 14 RE NJ IN 5 CH E PH AE HC AR L L MA G 50 CY MG CA P LE 00 04 05 3 30 30 TO 84 SC Ac VO 78 -0 -0 0. TA 80 MINAYA ti TH 15 2- 1- 00 L 05 FE ve YR 18 20 20 0 CA R OX 41 14 14 RE NJ IN 0 CH E PH AE 10 AR L 0 MA G MC CY G TA BL ET LE 68 04 04 6 15 30 TO 84 SC Ac VE 18 -2 -2 00 TA 95 MINAYA ti TI 00 1- 1- .0 L 14 FE ve RA 11 20 20 00 CA R CE 30 14 14 RE NJ TA 2 CH M PH AE 50 AR L 0 MA G MG CY TA BL ET W[place] 68 02 04 3 30 30 TO 84 SC Ac AV 18 -1 -0 0. TA 44 MINAYA ti 00 8- 2- 00 L 12 FE ve TA 48 20 20 0 CA R TI 80 14 14 RE NJ N 2 CH SO PH AE DI AR L UM MA G CY 80 MG TA B LI 00 07 04 2 30 30 TO 82 SC Ac SI 18 -3 -0 0. TA 93 MINAYA ti NO 50 1- 2- 00 L 25 FE ve W[place] 10 20 20 0 CA R IL 21 13 14 RE NJ 0 CH 20 PH AE AR L MG MA G CY TA BL ET AT 60 04 04 3 30 30 TO 84 SC Ac OR 50 -0 -0 0. TA 80 MINAYA ti VA 52 2- 2- 00 L [address] 58 20 20 0 CA R AT 00 14 14 RE NJ IN 8 CH PH AE 40 AR L MA G MG CY TA BL ET AL 00 05 04 11 30 30 TO 82 SC Ac LO 59 -3 -0 0. TA 50 MINAYA ti PU 15 0- 2- 00 L 79 FE ve RI 54 20 20 0 CA R NO 40 13 14 RE NJ L 5 CH 30 PH AE 0 AR L MG MA G CY TA BL ET LE 00 04 04 3 30 30 TO 84 SC Ac VO 78 -0 -0 0. TA 80 MINAYA ti TH 15 2- 2- 00 L 05 FE ve YR 18 20 20 0 CA R OX 41 14 14 RE NJ IN 0 CH E PH AE 10 AR L 0 MA G MC CY G TA BL ET LE 68 09 03 6 15 30 TO 83 SC Ac VE 18 -1 -1 00 TA 25 MINAYA ti TI 00 1- 9- .0 L 94 FE ve RA 11 20 20 00 CA R CE 30 13 14 RE NJ TA 2 CH M PH AE 50 AR L 0 MA G MG CY TA BL ET NO 00 02 03 2 60 30 TO 84 SC Ac RT 59 -1 -1 0. TA 44 MINAYA ti RI 15 8- 7- 00 L 13 FE ve PT 78 20 20 0 CA R YL 80 14 14 RE NJ IN 5 CH E PH AE HC AR L L MA G 50 CY MG CA P LI 00 10 02 2 30 30 TO 83 SC Ac SI 18 -3 -1 0. TA 64 MINAYA ti NO 50 1- 8- 00 L 87 FE ve [place] 10 20 20 0 CA R IL 21 13 14 RE NJ 0 CH 20 PH AE AR L MG MA G CY TA BL ET LE 68 09 02 6 15 30 TO 83 SC Ac VE 18 -1 -1 00 TA 25 MINAYA ti TI 00 1- 8- .0 L 94 FE ve RA 11 20 20 00 CA R CE 30 13 14 RE NJ TA 2 CH M PH AE 50 AR L 0 MA G MG CY TA BL ET LE 00 12 02 11 30 30 TO 83 SC Ac VO 52 -1 -1 0. TA 95 MINAYA ti TH 71 2- 8- 00 L 40 FE ve YR 34 20 20 0 CA R OX 21 13 14 RE NJ IN 0 CH E PH AE 50 AR L MA G MC CY G TA BL ET W[place] 68 02 02 3 30 30 TO 84 SC Ac AV 18 -1 -1 0. TA 44 MINAYA ti 00 8- 8- 00 L 12 FE ve TA 48 20 20 0 CA R TI 80 14 14 RE NJ N 2 CH SO PH AE DI AR L UM MA G CY 80 MG TA B NO 00 02 02 2 60 30 TO 84 SC Ac RT 59 -1 -1 0. TA 44 MINAYA ti RI 15 8- 8- 00 L 13 FE ve PT 78 20 20 0 CA R YL 80 14 14 RE NJ IN 5 CH E PH AE HC AR L L MA G 50 CY MG CA P AL 00 05 02 11 30 30 TO 82 SC Ac LO 59 -3 -1 0. TA 50 MINAYA ti PU 15 0- 8- 00 L 79 FE ve RI 54 20 20 0 CA R NO 40 13 14 RE NJ L 5 CH 30 PH AE 0 AR L MG MA G CY TA BL ET LE 68 09 01 6 15 30 TO 83 SC Ac VE 18 -1 -1 00 TA 25 MINAYA ti TI 00 1- 8- .0 L 94 FE ve RA 11 20 20 00 CA R CE 30 13 14 RE NJ TA 2 CH M PH AE 50 AR L 0 MA G MG CY TA BL ET LE 00 12 01 11 30 30 TO 83 SC Ac VO 52 -1 -1 0. TA 95 MINAYA ti TH 71 2- 5- 00 L 40 FE ve YR 34 20 20 0 CA R OX 21 13 14 RE NJ IN 0 CH E PH AE 50 AR L MA G MC CY G TA BL ET NO 00 11 01 2 60 30 TO 83 SC Ac RT 59 -0 -1 0. TA 67 MINAYA ti RI 15 4- 5- 00 L 02 FE ve PT 78 20 20 0 CA R YL 80 13 14 RE NJ IN 5 CH E PH AE HC AR L L MA G 50 CY MG CA P AL 00 05 01 11 30 30 TO 82 SC Ac LO 59 -3 -0 0. TA 50 MINAYA ti PU 15 0- 6- 00 L 79 FE ve RI 54 20 20 0 CA R NO 40 13 14 RE NJ L 5 CH 30 PH AE 0 AR L MG MA G CY TA BL ET [place] 68 02 01 3 30 30 TO 81 SC Ac AV 18 -0 -0 0. TA 58 MINAYA ti 00 1- 6- 00 L 78 FE ve TA 48 20 20 0 CA R TI 80 13 14 RE NJ N 2 CH SO PH AE DI AR L UM MA G CY 80 MG TA B LI 00 10 12 2 30 30 TO 83 SC Ac SI 18 -3 -3 0. TA 64 MINAYA ti NO 50 1- 1- 00 L 87 FE ve [place] 10 20 20 0 CA R IL 21 13 13 RE NJ 0 CH 20 PH AE AR L MG MA G CY TA BL ET LE 68 09 12 6 15 30 TO 83 SC Ac VE 18 -1 -1 00 TA 25 MINAYA ti TI 00 1- 6- .0 L 94 FE ve RA 11 20 20 00 CA R CE 30 13 13 RE NJ TA 2 CH M PH AE 50 AR L 0 MA G MG CY TA BL ET NO 00 11 12 2 60 30 TO 83 SC Ac RT 59 -0 -1 0. TA 67 MINAYA ti RI 15 4- 6- 00 L 02 FE ve PT 78 20 20 0 CA R YL 80 13 13 RE NJ IN 5 CH E PH AE HC AR L L MA G 50 CY MG CA P LE 00 12 12 11 30 30 TO 83 SC Ac VO 52 -1 -1 0. TA 95 MINAYA ti TH 71 2- 2- 00 L 40 FE ve YR 34 20 20 0 CA R OX 21 13 13 RE NJ IN 0 CH E PH AE 50 AR L MA G MC CY G TA BL ET [place] 68 02 12 3 30 30 TO 81 SC Ac AV 18 -0 -0 0. TA 58 MINAYA ti 00 1- 2- 00 L 78 FE ve TA 48 20 20 0 CA R TI 80 13 13 RE NJ N 2 CH SO PH AE DI AR L UM MA G CY 80 MG TA B AL 00 05 12 11 30 30 TO 82 SC Ac LO 59 -3 -0 0. TA 50 MINAYA ti PU 15 0- 2- 00 L 79 FE ve RI 54 20 20 0 CA R NO 40 13 13 RE NJ L 5 CH 30 PH AE 0 AR L MG MA G CY TA BL ET LE 68 09 11 6 15 30 TO 83 SC Ac VE 18 -1 -1 00 TA 25 MINAYA ti TI 00 1- 8- .0 L 94 FE ve RA 11 20 20 00 CA R CE 30 13 13 RE NJ TA 2 CH M PH AE 50 AR L 0 MA G MG CY TA BL ET LE 00 11 11 2 30 30 TO 83 SC Ac VO 78 -1 -1 0. TA 75 MINAYA ti TH 15 5- 5- 00 L 98 FE ve YR 18 20 20 0 CA R OX 01 13 13 RE NJ IN 0 CH E PH AE 25 AR L MA G MC CY G TA BL ET LI 00 10 11 2 30 30 TO 83 SC Ac SI 18 -3 -0 0. TA 64 MINAYA ti NO 50 1- 7- 00 L 87 FE ve [place] 10 20 20 0 CA R IL 21 13 13 RE NJ 0 CH 20 PH AE AR L MG MA G CY TA BL ET NO 00 11 11 2 60 30 TO 83 SC Ac RT 59 -0 -0 0. TA 67 MINAYA ti RI 15 4- 4- 00 L 02 FE ve PT 78 20 20 0 CA R YL 80 13 13 RE NJ IN 5 CH E PH AE HC AR L L MA G 50 CY MG CA P LE 68 09 10 6 15 30 TO 83 SC Ac VE 18 -1 -1 00 TA 25 MINAYA ti TI 00 1- 4- .0 L 94 FE ve RA 11 20 20 00 CA R CE 30 13 13 RE NJ TA 2 CH M PH AE 50 AR L 0 MA G MG CY TA BL ET [place] 68 02 10 3 30 30 TO 81 SC Ac AV 18 -0 -1 0. TA 58 MINAYA ti 00 1- 1- 00 L 78 FE ve TA 48 20 20 0 CA R TI 80 13 13 RE NJ N 2 CH SO PH AE DI AR L UM MA G CY 80 MG TA B AL 00 05 10 11 30 30 TO 82 SC Ac LO 59 -3 -1 0. TA 50 MINAYA ti PU 15 0- 1- 00 L 79 FE ve RI 54 20 20 0 CA R NO 40 13 13 RE NJ L 5 CH 30 PH AE 0 AR L MG MA G CY TA BL ET LI 00 07 10 2 30 30 TO 82 SC Ac SI 18 -3 -1 0. TA 93 MINAYA ti NO 50 1- 1- 00 L 25 FE ve [place] 10 20 20 0 CA R IL 21 13 13 RE NJ 0 CH 20 PH AE AR L MG MA G CY TA BL ET NO 00 07 10 2 60 30 TO 82 SC Ac RT 59 -3 -0 0. TA 93 MINAYA ti RI 15 1- 2- 00 L 24 FE ve PT 78 20 20 0 CA R YL 80 13 13 RE NJ IN 5 CH E PH AE HC AR L L MA G 50 CY MG CA P LE 68 09 09 6 15 30 TO 83 SC Ac VE 18 -1 -1 00 TA 25 MINAYA ti TI 00 1- 1- .0 L 94 FE ve RA 11 20 20 00 CA R CE 30 13 13 RE NJ TA 2 CH M PH AE 50 AR L 0 MA G MG CY TA #5 BL ET NO 00 07 09 2 60 30 TO 82 SC Ac RT 59 -3 -0 0. TA 93 MINAYA ti RI 15 1- 3- 00 L 24 FE ve PT 78 20 20 0 CA R YL 80 13 13 RE NJ IN 5 CH E PH AE HC AR L L MA G 50 CY MG #5 CA P [place] 68 02 08 3 30 30 TO 81 SC Ac AV 18 -0 -3 0. TA 58 MINAYA ti 00 1- 0- 00 L 78 FE ve TA 48 20 20 0 CA R TI 80 13 13 RE NJ N 2 CH SO PH AE DI AR L UM MA G CY 80 #5 MG TA B AL 00 05 08 11 30 30 TO 82 SC Ac LO 59 -3 -3 0. TA 50 MINAYA ti PU 15 0- 0- 00 L 79 FE ve RI 54 20 20 0 CA R NO 40 13 13 RE NJ L 5 CH 30 PH AE 0 AR L MG MA G CY TA BL #5 ET LI 00 07 08 2 30 30 TO 82 SC Ac SI 18 -3 -3 0. TA 93 MINAYA ti NO 50 1- 0- 00 L 25 FE ve [place] 10 20 20 0 CA R IL 21 13 13 RE NJ 0 CH 20 PH AE AR L MG MA G CY TA BL #5 ET LE 68 02 08 6 15 30 TO 81 SC Ac VE 18 -1 -1 00 TA 70 MINAYA ti TI 00 5- 3- .0 L 71 FE ve RA 11 20 20 00 CA R CE 30 13 13 RE NJ TA 2 CH M PH AE 50 AR L 0 MA G MG CY TA BL ET NO 00 07 07 2 60 30 TO 82 SC Ac RT 59 -3 -3 0. TA 93 MINAYA ti RI 15 1- 1- 00 L 24 FE ve PT 78 20 20 0 CA R YL 80 13 13 RE NJ IN 5 CH E PH AE HC AR L L MA G 50 CY MG CA P [place] 68 02 07 3 30 30 TO 81 SC Ac AV 18 -0 -1 0. TA 58 MINAYA ti 00 1- 7- 00 L 78 FE ve TA 48 20 20 0 CA R TI 80 13 13 RE NJ N 2 CH SO PH AE DI AR L UM MA G CY 80 MG TA B AL 00 05 07 11 30 30 TO 82 SC Ac LO 59 -3 -1 0. TA 50 MINAYA ti PU 15 0- 7- 00 L 79 FE ve RI 54 20 20 0 CA R NO 40 13 13 RE NJ L 5 CH 30 PH AE 0 AR L MG MA G CY TA BL ET LE 68 02 07 6 15 30 TO 81 SC Ac VE 18 -1 -1 00 TA 70 MINAYA ti TI 00 5- 1- .0 L 71 FE ve RA 11 20 20 00 CA R CE 30 13 13 RE NJ TA 2 CH M PH AE 50 AR L 0 MA G MG CY TA BL ET LI 00 07 07 0 30 30 TO 82 SC Ac SI 18 -0 -0 0. TA 77 MINAYA ti NO 50 9- 9- 00 L 54 FE ve [place] 10 20 20 0 CA R IL 21 13 13 RE NJ 0 CH 20 PH AE AR L MG MA G CY TA BL ET LE 00 05 07 2 30 30 TO 82 SC Ac VO 37 -0 -0 0. TA 34 MINAYA ti TH 81 8- 3- 00 L 41 FE ve YR 80 20 20 0 CA R OX 00 13 13 RE NJ IN 1 CH E PH AE 25 AR L MA G MC CY G TA BL ET NO 00 04 06 2 60 30 TO 82 SC Ac RT 59 -1 -2 0. TA 17 MINAYA ti RI 15 5- 8- 00 L 15 FE ve PT 78 20 20 0 CA R YL 80 13 13 RE NJ IN 5 CH E PH AE HC [...] CA R CE 30 13 13 RE NJ TA 2 CH M PH AE 50 AR L 0 MA G MG CY TA BL ET LE 00 05 06 2 30 30 TO 82 SC Ac VO 37 -0 -0 0. TA 34 MINAYA ti TH 81 8- 5- 00 L 41 FE ve YR 80 20 20 0 CA R OX 00 13 13 RE NJ IN 1 CH E PH AE 25 AR L MA G MC CY G TA BL ET AL 00 05 05 11 30 30 TO 82 SC Ac LO 59 -3 -3 0. TA 50 MINAYA ti PU 15 0- 0- 00 L 79 FE ve RI 54 20 20 0 CA R NO 40 13 13 RE NJ L 5 CH 30 PH AE 0 AR L MG MA G CY TA BL ET NO 00 04 05 2 60 30 TO 82 SC Ac RT 59 -1 -3 0. TA 17 MINAYA ti RI 15 5- 0- 00 L 15 FE ve PT 78 20 20 0 CA R YL 80 13 13 RE NJ IN 5 CH E PH AE HC AR L L MA G 50 CY MG CA P [place] 68 02 05 3 30 30 TO 81 SC Ac AV 18 -0 -2 0. TA 58 MINAYA ti 00 1- 2- 00 L 78 FE ve TA 48 20 20 0 CA R TI 80 13 13 RE NJ N 2 CH SO PH AE DI AR L UM MA G CY 80 MG TA B LE 68 02 05 6 15 30 TO 81 SC Ac VE 18 -1 -1 00 TA 70 MINAYA ti TI 00 5- 3- .0 L 71 FE ve RA 11 20 20 00 CA R CE 30 13 13 RE NJ TA 2 CH M PH AE 50 AR L 0 MA G MG CY TA BL ET LE 00 05 05 2 30 30 TO 82 SC Ac VO 37 -0 -0 0. TA 34 MINAYA ti TH 81 8- 8- 00 L 41 FE ve YR 80 20 20 0 CA R OX 00 13 13 RE NJ IN 1 CH E PH AE 25 AR L MA G MC CY G TA BL ET NO 00 04 04 2 60 30 TO 82 SC Ac RT 59 -1 -2 0. TA 17 MINAYA ti RI 15 5- 6- 00 L 15 FE ve PT 78 20 20 0 CA R YL 80 13 13 RE NJ IN 5 CH E PH AE HC AR L L MA G 50 CY MG CA P AL 00 05 04 11 30 30 TO 79 SC Ac LO 59 -0 -1 0. TA 42 MINAYA ti PU 15 7- 8- 00 L 42 FE ve RI 54 20 20 0 CA R NO 40 12 13 RE NJ L 5 CH 30 PH AE 0 AR L MG MA G CY TA BL ET LE 68 02 04 6 15 30 TO 81 SC Ac VE 18 -1 -1 00 TA 70 MINAYA ti TI 00 5- 5- .0 L 71 FE ve RA 11 20 20 00 CA R CE 30 13 13 RE NJ TA 2 CH M PH AE 50 AR L 0 MA G MG CY TA BL ET NO 00 01 03 2 60 30 TO 81 SC Ac RT 59 -2 -2 0. TA 51 MINAYA ti RI 15 4- 8- 00 L 29 FE ve PT 78 20 20 0 CA R YL 80 13 13 RE NJ IN 5 CH E PH AE HC AR L L MA G 50 CY MG CA P LE 68 02 03 6 15 30 TO 81 SC Ac VE 18 -1 -1 00 TA 70 MINAYA ti TI 00 5- 5- .0 L 71 FE ve RA 11 20 20 00 CA R CE 30 13 13 RE NJ TA 2 CH M PH AE 50 AR L 0 MA G MG CY TA BL ET [place] 68 02 03 3 30 30 TO 81 SC Ac AV 18 -0 -0 0. TA 58 MINAYA ti 00 1- 7- 00 L 78 FE ve TA 48 20 20 0 CA R TI 80 13 13 RE NJ N 2 CH SO PH AE DI AR L UM MA G CY 80 MG TA B LI 00 07 03 3 90 90 TO 79 SC Ac SI 18 -0 -0 0. TA 88 MINAYA ti NO 50 6- 4- 00 L 56 FE ve W[place] 10 20 20 0 CA R IL 21 12 13 RE NJ 0 CH 20 PH AE AR L MG MA G CY TA BL ET LE 00 11 02 2 30 30 TO 80 SC Ac VO 37 -1 -2 0. TA 90 MINAYA ti TH 81 2- 7- 00 L 11 FE ve YR 80 20 20 0 CA R OX 00 12 13 RE NJ IN 1 CH E PH AE 25 AR L MA G MC CY G TA BL ET AL 00 05 02 11 30 30 TO 79 SC Ac LO 59 -0 -2 0. TA 42 MINAYA ti PU 15 7- 7- 00 L 42 FE ve RI 54 20 20 0 CA R NO 40 12 13 RE NJ L 5 CH 30 PH AE 0 AR L MG MA G CY TA BL ET NO 00 01 02 2 60 30 TO 81 SC Ac RT 59 -2 -2 0. TA 51 MINAYA ti RI 15 4- 7- 00 L 29 FE ve PT 78 20 20 0 CA R YL 80 13 13 RE NJ IN 5 CH E PH AE HC AR L L MA G 50 CY MG CA P LE 68 02 02 6 15 30 TO 81 SC Ac VE 18 -1 -1 00 TA 70 MINAYA ti TI 00 5- 5- .0 L 71 FE ve RA 11 20 20 00 CA R CE 30 13 13 RE NJ TA 2 CH M PH AE 50 AR L 0 MA G MG CY TA #5 BL ET W[place] 68 02 02 3 30 30 TO 81 SC Ac AV 18 -0 -0 0. TA 58 MINAYA ti 00 1- 1- 00 L 78 FE ve TA 48 20 20 0 CA R TI 80 13 13 RE NJ N 2 CH SO PH AE DI AR L UM MA G CY 80 #5 MG TA B NO 00 01 01 2 60 30 TO 81 SC Ac RT 59 -2 -2 0. TA 51 MINAYA ti RI 15 4- 4- 00 L 29 FE ve PT 78 20 20 0 CA R YL 80 13 13 RE NJ IN 1 CH E PH AE HC AR L L MA G 50 CY MG #5 CA P LE 68 07 01 6 15 30 TO 79 SC Ac VE 18 -1 -1 00 TA 97 MINAYA ti TI 00 9- 6- .0 L 87 FE ve RA 11 20 20 00 CA R CE 30 12 13 RE NJ TA 2 CH M PH AE 50 AR L 0 MA G MG CY TA #5 BL ET AL 00 05 01 11 30 30 TO 79 SC Ac LO 59 -0 -0 0. TA 42 MINAYA ti PU 15 7- 9- 00 L 42 FE ve RI 54 20 20 0 CA R NO 40 12 13 RE NJ L 5 CH 30 PH AE 0 AR L MG MA G CY TA BL #5 ET LE 00 11 01 2 30 30 TO 80 SC Ac VO 37 -1 -0 0. TA 90 MINAYA ti TH 81 2- 9- 00 L 11 FE ve YR 80 20 20 0 CA R OX 00 12 13 RE NJ IN 1 CH E PH AE 25 AR L MA G MC CY G TA #5 BL ET NO 00 10 12 2 60 30 TO 80 SC Ac RT 59 -2 -2 0. TA 75 MINAYA ti RI 15 4- 6- 00 L 26 FE ve PT 78 20 20 0 CA R YL 80 12 12 RE NJ IN 1 CH E PH AE HC AR L L MA G 50 CY MG #5 CA P LE 68 07 12 6 15 30 TO 79 SC Ac VE 18 -1 -1 00 TA 97 MINAYA ti TI 00 9- 8- .0 L 87 FE ve RA 11 20 20 00 CA R CE 30 12 12 RE NJ TA 2 CH M PH AE 50 AR L 0 MA G MG CY TA #5 BL ET [place] 68 01 11 3 30 30 TO 78 SC Ac AV 18 -1 -2 0. TA 47 MINAYA ti 00 8- 3- 00 L 65 FE ve TA 48 20 20 0 CA R TI 80 12 12 RE NJ N 2 CH SO PH AE DI AR L UM MA G CY 80 #5 MG TA B NO 00 10 11 2 60 30 TO 80 SC Ac RT 59 -2 -2 0. TA 75 MINAYA ti RI 15 4- 3- 00 L 26 FE ve PT 78 20 20 0 CA R YL 80 12 12 RE NJ IN 1 CH E PH AE HC AR L L MA G 50 CY MG #5 CA P AL 00 05 11 11 30 30 TO 79 SC Ac LO 59 -0 -2 0. TA 42 MINAYA ti PU 15 7- 3- 00 L 42 FE ve RI 54 20 20 0 CA R NO 40 12 12 RE NJ L 5 CH 30 PH AE 0 AR L MG MA G CY TA BL #5 ET LE 68 07 11 6 15 30 TO 79 SC Ac VE 18 -1 -1 00 TA 97 MINAYA ti TI 00 9- 9- .0 L 87 FE ve RA 11 20 20 00 CA R CE 30 12 12 RE NJ TA 2 CH M PH AE 50 AR L 0 MA G MG CY TA #5 BL ET LE 00 11 11 2 30 30 TO 80 SC Ac VO 37 -1 -1 0. TA 90 MINAYA ti TH 81 2- 2- 00 L 11 FE ve YR 80 20 20 0 CA R OX 00 12 12 RE NJ IN 1 CH E PH AE 25 AR L MA G MC CY G TA #5 BL ET LI 00 07 11 3 90 90 TO 79 SC Ac SI 18 -0 -0 0. TA 88 MINAYA ti NO 50 6- 7- 00 L 56 FE ve [place] 10 20 20 0 CA R IL 21 12 12 RE NJ 0 CH 20 PH AE AR L MG MA G CY TA BL #5 ET NO 00 10 10 2 60 30 TO 80 SC Ac RT 59 -2 -2 0. TA 75 MINAYA ti RI 15 4- 4- 00 L 26 FE ve PT 78 20 20 0 CA R YL 80 12 12 RE NJ IN 1 CH E PH AE HC AR L L MA G 50 CY MG #5 CA P AL 00 05 10 11 30 30 TO 79 SC Ac LO 59 -0 -1 0. TA 42 MINAYA ti PU 15 7- 8- 00 L 42 FE ve RI 54 20 20 0 CA R NO 40 12 12 RE NJ L 5 CH 30 PH AE 0 AR L MG MA G CY TA BL #5 ET LE 68 07 10 6 15 30 TO 79 SC Ac VE 18 -1 -1 00 TA 97 MINAYA ti TI 00 9- 7- .0 L 87 FE ve RA 11 20 20 00 CA R CE 30 12 12 RE NJ TA 2 CH M PH AE 50 AR L 0 MA G MG CY TA #5 BL ET [place] 68 01 10 3 30 30 TO 78 SC Ac AV 18 -1 -1 0. TA 47 MINAYA ti 00 8- 3- 00 L 65 FE ve TA 48 20 20 0 CA R TI 80 12 12 RE NJ N 2 CH SO PH AE DI AR L UM MA G CY 80 #5 MG TA B LE 00 07 10 2 30 30 TO 79 SC Ac VO 37 -0 -0 0. TA 89 MINAYA ti TH 81 9- 3- 00 L 98 FE ve YR 80 20 20 0 CA R OX 00 12 12 RE NJ IN 1 CH E PH AE 25 AR L MA G MC CY G TA #5 BL ET NO 00 09 09 0 60 30 TO 80 SC Ac RT 59 -2 -2 0. TA 48 MINAYA ti RI 15 1- 1- 00 L 36 FE ve PT 78 20 20 0 CA R YL 80 12 12 RE NJ IN 1 CH E PH AE HC AR L L MA G 50 CY MG #5 CA P LE 68 07 09 6 15 30 TO 79 SC Ac VE 18 -1 -2 00 TA 97 MINAYA ti TI 00 9- 0- .0 L 87 FE ve RA 11 20 20 00 CA R CE 30 12 12 RE NJ TA 2 CH M PH AE 50 AR L 0 MA G MG CY TA #5 BL ET AL 00 05 09 11 30 30 TO 79 SC Ac LO 59 -0 -0 0. TA 42 MINAYA ti PU 15 7- 5- 00 L 42 FE ve RI 54 20 20 0 CA R NO 40 12 12 RE NJ L 5 CH 30 PH AE 0 AR L MG MA G CY TA BL #5 ET [place] 68 01 09 3 30 30 TO 78 SC Ac AV 18 -1 -0 0. TA 47 MINAYA ti 00 8- 5- 00 L 65 FE ve TA 48 20 20 0 CA R TI 80 12 12 RE NJ N 2 CH SO PH AE DI AR L UM MA G CY 80 #5 MG TA B NO 00 03 08 5 60 30 TO 78 SC Ac RT 59 -1 -2 0. TA 95 MINAYA ti RI 15 2- 0- 00 L 37 FE ve PT 78 20 20 0 CA R YL 80 12 12 RE NJ IN 1 CH E PH AE HC AR L L MA G 50 CY MG #5 CA P LE 00 07 08 2 30 30 TO 79 SC Ac VO 37 -0 -2 0. TA 89 MINAYA ti TH 81 9- 0- 00 L 98 FE ve YR 80 20 20 0 CA R OX 00 12 12 RE NJ IN 1 CH E PH AE 25 AR L MA G MC CY G TA #5 BL ET LE 68 07 08 6 15 30 TO 79 SC Ac VE 18 -1 -2 00 TA 97 MINAYA ti TI 00 9- 0- .0 L 87 FE ve RA 11 20 20 00 CA R CE 30 12 12 RE NJ TA 2 CH M PH AE 50 AR L 0 MA G MG CY TA #5 BL ET AL 00 05 07 11 30 30 TO 79 SC Ac LO 59 -0 -3 0. TA 42 MINAYA ti PU 15 7- 1- 00 L 42 FE ve RI 54 20 20 0 CA R NO 40 12 12 RE NJ L 5 CH 30 PH AE 0 AR L MG MA G CY TA BL #5 ET [place] 68 01 07 3 30 30 TO 78 SC Ac AV 18 -1 -3 0. TA 47 MINAYA ti 00 8- 1- 00 L 65 FE ve TA 48 20 20 0 CA R TI 80 12 12 RE NJ N 2 CH SO PH AE DI AR L UM MA G CY 80 #5 MG TA B NO 00 03 07 5 60 30 TO 78 SC Ac RT 59 -1 -2 0. TA 95 MINAYA ti RI 15 2- 3- 00 L 37 FE ve PT 78 20 20 0 CA R YL 80 12 12 RE NJ IN 1 CH E PH AE HC AR L L MA G 50 CY MG #5 CA P LE 68 07 07 6 15 30 TO 79 SC Ac VE 18 -1 -1 00 TA 97 MINAYA ti TI 00 9- 9- .0 L 87 FE ve RA 11 20 20 00 CA R CE 30 12 12 RE NJ TA 2 CH M PH AE 50 AR L 0 MA G MG CY TA #5 BL ET LE 00 07 07 2 30 30 TO 79 SC Ac VO 37 -0 -0 0. TA 89 MINAYA ti TH 81 9- 9- 00 L 98 FE ve YR 80 20 20 0 CA R OX 00 12 12 RE NJ IN 1 CH E PH AE 25 AR L MA G MC CY G TA #5 BL ET LI 00 07 07 3 90 90 TO 79 SC Ac SI 18 -0 -0 0. TA 88 MINAYA ti NO 50 6- 6- 00 L 56 FE ve [place] 10 20 20 0 CA R IL 21 12 12 RE NJ 0 CH 20 PH AE AR L MG MA G CY TA BL #5 ET NO 00 03 06 5 60 30 TO 78 SC Ac RT 59 -1 -2 0. TA 95 MINAYA ti RI 15 2- 1- 00 L 37 FE ve PT 78 20 20 0 CA R YL 80 12 12 RE NJ IN 1 CH E PH AE HC AR L L MA G 50 CY MG #5 CA P LE 68 12 06 6 15 30 TO 78 SC Ac VE 18 -2 -2 00 TA 22 MINAYA ti TI 00 0- 1- .0 L 69 FE ve RA 11 20 20 00 CA R CE 30 11 12 RE NJ TA 2 CH M PH AE 50 AR L 0 MA G MG CY TA #5 BL ET [place] 68 01 06 3 30 30 TO 78 SC Ac AV 18 -1 -1 0. TA 47 MINAYA ti 00 8- 5- 00 L 65 FE ve TA 48 20 20 0 CA R TI 80 12 12 RE NJ N 2 CH SO PH AE DI AR L UM MA G CY 80 #5 MG TA B LE 00 03 06 3 90 90 TO 79 SC Ac VO 52 -2 -1 0. TA 07 MINAYA ti TH 71 6- 5- 00 L 23 FE ve YR 34 20 20 0 CA R OX 21 12 12 RE NJ IN 0 CH E PH AE 50 AR L MA G MC CY G TA #5 BL ET AL 00 05 06 11 30 30 TO 79 SC Ac LO 59 -0 -1 0. TA 42 MINAYA ti PU 15 7- 5- 00 L 42 FE ve RI 54 20 20 0 CA R NO 40 12 12 RE NJ L 5 CH 30 PH AE 0 AR L MG MA G CY TA BL #5 ET LI 00 09 06 11 30 30 TO 77 SC Ac SI 18 -0 -0 0. TA 30 MINAYA ti NO 50 7- 6- 00 L 88 FE ve WY 10 20 20 0 CA R IL 11 11 12 RE NJ 0 CH 10 PH AE AR L MG MA G CY TA BL #5 ET ME 68 01 05 6 30 30 TO 78 SC Ac LO 38 -1 -3 0. TA 47 MINAYA ti XI 20 8- 1- 00 L 66 FE ve CA 05 20 20 0 CA R M 10 12 12 RE NJ 15 5 CH PH AE MG AR L MA G TA CY BL ET #5 LE 68 12 05 6 15 30 TO 78 SC Ac VE 18 -2 -2 00 TA 22 MINAYA ti TI 00 0- 3- .0 L 69 FE ve RA 11 20 20 00 CA R CE 30 11 12 RE NJ TA 2 CH M PH AE 50 AR L 0 MA G MG CY TA #5 BL ET NO 00 03 05 5 60 30 TO 78 SC Ac RT 59 -1 -2 0. TA 95 MINAYA ti RI 15 2- 1- 00 L 37 FE ve PT 78 20 20 0 CA R YL 80 12 12 RE NJ IN 1 CH E PH AE HC AR L L MA G 50 CY MG #5 CA P AL 00 05 05 11 30 30 TO 79 SC Ac LO 59 -0 -0 0. TA 42 MINAYA ti PU 15 7- 7- 00 L 42 FE ve RI 54 20 20 0 CA R NO 40 12 12 RE NJ L 5 CH 30 PH AE 0 AR L MG MA G CY TA BL #5 ET W[place] 68 01 05 3 30 30 TO 78 SC Ac AV 18 -1 -0 0. TA 47 MINAYA ti 00 8- 7- 00 L 65 FE ve TA 48 20 20 0 CA R TI 80 12 12 RE NJ N 2 CH SO PH AE DI AR L UM MA G CY 80 #5 MG TA B LE 68 12 04 6 15 30 TO 78 SC Ac VE 18 -2 -2 00 TA 22 MINAYA ti TI 00 0- 1- .0 L 69 FE ve RA 11 20 20 00 CA R CE 30 11 12 RE NJ TA 2 CH M PH AE 50 AR L 0 MA G MG CY TA #5 BL ET NO 00 03 04 5 60 30 TO 78 SC Ac RT 59 -1 -1 0. TA 95 MINAYA ti RI 15 2- 0- 00 L 37 FE ve PT 78 20 20 0 CA R YL 80 12 12 RE NJ IN 1 CH E PH AE HC AR L L MA G 50 CY MG #5 CA P ME 68 01 04 6 30 30 TO 78 SC Ac LO 38 -1 -0 0. TA 47 MINAYA ti XI 20 8- 9- 00 L 66 FE ve CA 05 20 20 0 CA R M 10 12 12 RE NJ 15 5 CH PH AE MG AR L MA G TA CY BL ET #5 LI 00 09 04 11 30 0 TO 77 SC Ac SI 18 -0 -0 0. TA 30 MINAYA ti NO 50 7- 3- 00 L 88 FE ve WY 10 20 20 0 CA R IL 11 11 12 RE NJ 0 CH 10 PH AE AR L MG MA G CY TA BL #5 ET AL 00 08 04 6 30 0 TO 77 KA Ac LO 59 -2 -0 0. TA 22 LF ti PU 15 6- 3- 00 L 63 ve RI 54 20 20 0 CA NO 40 11 12 RE NJ L 5 NA 30 PH C 0 AR MG MA CY TA BL #5 ET LE 00 03 03 3 90 0 TO 79 SC Ac VO 52 -2 -2 0. TA 07 MINAYA ti TH 71 6- 6- 00 L 23 FE ve YR 34 20 20 0 CA R OX 21 12 12 RE NJ IN 0 CH E PH AE 50 AR L MA G MC CY G TA #5 BL ET LE 68 12 03 6 15 0 TO 78 SC Ac VE 18 -2 -2 00 TA 22 MINAYA ti TI 00 0- 2- .0 L 69 FE ve RA 11 20 20 00 CA R CE 30 11 12 RE NJ TA 2 CH M PH AE 50 AR L 0 MA G MG CY TA #5 BL ET WY 68 01 03 3 30 0 TO 78 SC Ac AV 18 -1 -1 0. TA 47 MINAYA ti 00 8- 7- 00 L 65 FE ve TA 48 20 20 0 CA R TI 80 12 12 RE NJ N 2 CH SO PH AE DI AR L UM MA G CY 80 #5 MG TA B NO 00 03 03 5 60 0 TO 78 SC Ac RT 59 -1 -1 0. TA 95 MINAYA ti RI 15 2- 2- 00 L 37 FE ve PT 78 20 20 0 CA R YL 80 12 12 RE NJ IN 1 CH E PH AE HC AR L L MA G 50 CY MG #5 CA P AL 00 08 03 6 30 0 TO 77 KA Ac LO 59 -2 -0 0. TA 22 LF ti PU 15 6- 1- 00 L 63 ve RI 54 20 20 0 CA NO 40 11 12 RE NJ L 5 NA 30 PH C 0 AR MG MA CY TA BL #5 ET LI 00 09 03 11 30 0 TO 77 SC Ac SI 18 -0 -0 0. TA 30 MINAYA ti NO 50 7- 1- 00 L 88 FE ve WY 10 20 20 0 CA R IL 11 11 12 RE NJ 0 CH 10 PH AE AR L MG MA G CY TA BL #5 ET ME 68 01 02 6 30 0 TO 78 SC Ac LO 38 -1 -2 0. TA 47 MINAYA ti XI 20 8- 4- 00 L 66 FE ve CA 05 20 20 0 CA R M 10 12 12 RE NJ 15 5 CH PH AE MG AR L MA G TA CY BL ET #5 LE 68 12 02 6 15 0 TO 78 SC Ac VE 18 -2 -2 00 TA 22 MINAAY ti TI 00 0- 1- .0 L 69 FE ve RA 11 20 20 00 CA R CE 30 11 12 RE NJ TA 2 CH M PH AE 50 AR L 0 MA G MG CY TA #5 BL ET NO 00 01 02 1 60 0 TO 78 SC Ac RT 59 -0 -0 0. TA 37 MINAYA ti RI 15 9- 9- 00 L 63 FE ve PT 78 20 20 0 CA R YL 80 12 12 RE NJ IN 1 CH E PH AE HC AR L L MA G 50 CY MG #5 CA P LI 00 09 02 11 30 0 TO 77 SC Ac SI 18 -0 -0 0. TA 30 MINAYA ti NO 50 7- 1- 00 L 88 FE ve WY 10 20 20 0 CA R IL 11 11 12 RE NJ 0 CH 10 PH AE AR L MG MA G CY TA BL #5 ET AL 00 08 02 6 30 0 TO 77 KA Ac LO 59 -2 -0 0. TA 22 LF ti PU 15 6- 1- 00 L 63 ve RI 54 20 20 0 CA NO 40 11 12 RE NJ L 5 NA 30 PH C 0 AR MG MA CY TA BL #5 ET TR 65 01 01 3 90 0 TO 78 SC Ac AM 16 -2 -2 0. TA 54 MINAYA ti AD 20 5- 5- 00 L 59 FE ve OL 62 20 20 0 CA R 71 12 12 RE NJ HC 1 CH L PH AE 50 AR L MA G MG CY TA #5 BL ET LE 68 12 01 6 15 0 TO 78 SC Ac VE 18 -2 -2 00 TA 22 MINAYA ti TI 00 0- 0- .0 L 69 FE ve RA 11 20 20 00 CA R CE 30 11 12 RE NJ TA 2 CH M PH AE 50 AR L 0 MA G MG CY TA #5 BL ET W[place] 68 01 01 3 30 0 TO 78 SC Ac AV 18 -1 -1 0. TA 47 MINAYA ti 00 8- 8- 00 L 65 FE ve TA 48 20 20 0 CA R TI 80 12 12 RE NJ N 2 CH SO PH AE DI AR L UM MA G CY 80 #5 MG TA B ME 68 01 01 6 30 0 TO 78 SC Ac LO 38 -1 -1 0. TA 47 MINAYA ti XI 20 8- 8- 00 L 66 FE ve CA 05 20 20 0 CA R M 10 12 12 RE NJ 15 5 CH PH AE MG AR L MA G TA CY BL ET #5 SI 68 11 01 4 30 0 TO 77 SC Ac MV 38 -0 -1 0. TA 81 MINAYA ti 20 2- 7- 00 L 52 FE ve TA 06 20 20 0 CA R TI 90 11 12 RE NJ N 5 CH 80 PH AE AR L MG MA G CY TA BL #5 ET NO 00 01 01 1 60 0 TO 78 SC Ac RT 59 -0 -0 0. TA 37 MINAYA ti RI 15 9- 9- 00 L 63 FE ve PT 78 20 20 0 CA R YL 80 12 12 RE NJ IN 1 CH E PH AE HC AR L L MA G 50 CY MG #5 CA P LI 00 09 12 11 30 0 TO 77 SC Ac SI 18 -0 -3 0. TA 30 MINAYA ti NO 50 7- 0- 00 L 88 FE ve WY 10 20 20 0 CA R IL 11 11 11 RE NJ 0 CH 10 PH AE AR L MG MA G CY TA BL #5 ET AL 00 08 12 6 30 0 TO 77 KA Ac LO 59 -2 -3 0. TA 22 LF ti PU 15 6- 0- 00 L 63 ve RI 54 20 20 0 CA NO 40 11 11 RE NJ L 5 NA 30 PH C 0 AR MG MA CY TA BL #5 ET LE 68 12 12 6 15 30 78 SC Ac VE 18 -2 -2 0. 22 MINAYA ti TI 00 0- 0- 00 69 FE ve RA 11 20 20 0 R CE 30 11 11 NJ TA 2 CH M AE 50 L 0 G MG TA BL ET SI 68 11 12 4 30 30 77 SC Ac MV 38 -0 -0 .0 81 MINAYA ti 20 2- 7- 00 52 FE ve TA 06 20 20 R TI 90 11 11 NJ N 5 CH 80 AE L MG G TA BL ET NO 00 11 12 1 60 30 77 SC Ac RT 59 -0 -0 .0 81 MINAYA ti RI 15 2- 7- 00 53 FE ve PT 78 20 20 R YL 80 11 11 NJ IN 1 CH E AE HC L L G 50 MG CA P AL 00 08 11 6 30 30 77 KA Ac LO 59 -2 -2 .0 22 LF ti PU 15 6- 3 00 63 ve RI 54 20 20 NO 40 11 11 NJ L 5 NA 30 C 0 MG TA BL ET LI 00 09 11 11 30 30 77 SC Ac SI 18 -0 -2 .0 30 MINAYA ti NO 50 7- 3 88 FE ve WY 10 20 20 R IL 11 11 11 NJ 0 CH 10 AE L MG G TA BL ET LE 68 11 11 6 15 30 77 SC Ac VE 18 -1 -1 0. 96 MINAYA ti TI 00 58 FE ve RA 11 20 20 0 R CE 30 11 11 NJ TA 2 CH M AE 50 L 0 G MG TA BL ET NO 00 11 11 1 60 30 77 SC Ac RT 59 -0 -0 .0 81 MINAYA ti RI 15 2 7 53 FE ve PT 78 20 20 R YL 80 11 11 NJ IN 1 CH E AE HC L L G 50 MG CA P SI 68 11 11 4 30 30 77 SC Ac MV 38 -0 -0 .0 81 MINAYA ti 20 2- 2- 00 52 FE ve TA 06 20 20 R TI 90 11 11 NJ N 5 CH 80 AE L MG G TA BL ET LI 00 09 10 11 30 30 77 SC Ac SI 18 -0 -2 .0 30 MINAYA ti NO 50 7 88 FE ve WY 10 20 20 R IL 11 11 11 NJ 0 CH 10 AE L MG G TA BL ET LE 68 09 10 1 15 30 77 SC Ac VE 18 -1 -1 0. 40 MINAYA ti TI 00 99 FE ve RA 11 20 20 0 R CE 30 11 11 NJ TA 2 CH M AE 50 L 0 G MG TA BL ET AC 64 10 10 3 90 90 77 SC Ac TO 76 -1 -1 .0 66 MINAYA ti S 40 4- 4- 02 FE ve 45 45 20 20 R 12 11 11 NJ MG 4 CH AE TA L BL G ET TR 65 10 10 5 60 30 77 SC Ac AM 16 -1 -1 .0 66 MINAYA ti AD 20 4 13 FE ve OL 62 20 20 R 71 11 11 NJ HC 1 CH L AE 50 L G MG TA BL ET AL 00 08 10 6 30 30 77 KA Ac LO 59 -2 -1 .0 22 LF ti PU 15 6- 3- 00 63 ve RI 54 20 20 NO 40 11 11 NJ L 5 NA 30 C 0 MG TA BL ET NO 00 09 10 1 60 30 77 SC Ac RT 59 -0 -0 .0 27 MINAYA ti RI 15 2- 7- 00 87 FE ve PT 78 20 20 R YL 80 11 11 NJ IN 1 CH E AE HC L L G 50 MG CA P SI 68 04 10 4 30 30 76 KA Ac MV 38 -0 -0 .0 08 LF ti 20 8- 00 95 ve TA 06 20 20 TI 90 11 11 NJ N 5 NA 80 C MG TA BL ET LE 68 09 09 1 15 30 77 SC Ac VE 18 -1 -1 0. 40 MINAYA ti TI 00 9 99 FE ve RA 11 20 20 0 R CE 30 11 11 NJ TA 2 CH M AE 50 L 0 G MG TA BL ET LI 00 09 09 11 30 30 77 SC Ac SI 18 -0 -0 .0 30 MINAYA ti NO 50 7 7 88 FE ve W[place] 10 20 20 R IL 11 11 11 NJ 0 CH 10 AE L MG G TA BL ET NO 00 09 09 1 60 30 77 SC Ac RT 59 -0 -0 .0 27 MINAYA ti RI 15 2- 2- 00 87 FE ve PT 78 20 20 R YL 80 11 11 NJ IN 1 CH E AE HC L L G 50 MG CA P AL 00 08 08 6 30 30 77 KA Ac LO 59 -2 -2 .0 22 LF ti PU 15 6- 6 00 63 ve RI 54 20 20 NO 40 11 11 NJ L 5 NA 30 C 0 MG TA BL ET LE 68 07 08 1 15 30 76 KA Ac VE 18 -1 -1 0. 88 LF ti TI 00 5 00 68 ve RA 11 20 20 0 CE 30 11 11 NJ TA 2 NA M C 50 0 MG TA BL ET NO 00 01 08 3 60 30 75 KA Ac RT 59 -2 -0 .0 42 LF ti RI 15 8- 2- 00 31 ve PT 78 20 20 YL 80 11 11 NJ IN 1 NA E C HC L 50 MG CA P SI 68 04 08 4 30 30 76 KA Ac MV 38 -0 -0 .0 08 LF ti 20 8- 2 00 95 ve TA 06 20 20 TI 90 11 11 NJ N 5 NA 80 C MG TA BL ET LI 00 04 07 3 30 30 76 SC Ac SI 18 -1 -2 .0 13 MINAYA ti NO 50 4- 8- 00 54 CK ve WY 10 20 20 IL 11 11 11 BR 0 IA 10 N MG TA BL ET LE 68 07 07 1 15 30 76 KA Ac VE 18 -1 -1 0. 88 LF ti TI 00 5- 5 00 68 ve RA 11 20 20 0 CE 30 11 11 NJ TA 2 NA M C 50 0 MG TA BL ET AL 00 03 07 3 30 30 75 KA Ac LO 59 -2 -1 .0 94 LF ti PU 15 3- 3- 00 44 ve RI 54 20 20 NO 40 11 11 NJ L 5 NA 30 C 0 MG TA BL ET NO 00 01 06 3 60 30 75 KA Ac RT 59 -2 -2 .0 42 LF ti RI 15 8 9 31 ve PT 78 20 20 YL 80 11 11 NJ IN 1 NA E C HC L 50 MG CA P AC 00 06 06 0 60 30 76 KA Ac ET 40 -2 -2 .0 75 LF ti AM 60 8- 8- 00 38 ve IN 48 20 20 OP 41 11 11 NJ HE 0 NA N- C CO D #3 TA BL ET SI 68 04 06 4 30 30 76 KA Ac MV 38 -0 -2 .0 08 LF ti 20 8- 0- 00 95 ve TA 06 20 20 TI 90 11 11 NJ N 5 NA 80 C MG TA BL ET HY 00 06 06 1 30 [address] 17 -2 -2 .0 68 LF ti OC 22 0- 0- 00 50 ve HL 08 20 20 OR 38 11 11 NJ OT 0 NA HI C AZ ID E 25 MG TA B LI 00 04 06 3 30 30 76 SC Ac SI 18 -1 -2 .0 13 MINAYA ti NO 50 4- 0- 00 54 CK ve WY 10 20 20 IL 11 11 11 BR 0 IA 10 N MG TA BL ET LE 68 05 06 1 15 30 76 KA Ac VE 18 -1 -1 0. 41 LF ti TI 00 7 6 00 34 ve RA 11 20 20 0 CE 30 11 11 NJ TA 2 NA M C 50 0 MG TA BL ET NO 00 01 05 3 60 30 75 KA Ac RT 59 -2 -3 .0 42 LF ti RI 15 8- 1- 00 31 ve PT 78 20 20 YL 80 11 11 NJ IN 1 NA E C HC L 50 MG CA P AL 00 03 05 3 30 30 75 KA Ac LO 59 -2 -3 .0 94 LF ti PU 15 3- 44 ve RI 54 20 20 NO 40 11 11 NJ L 5 NA 30 C 0 MG TA BL ET SI 68 04 05 4 30 30 76 KA Ac MV 38 -0 -1 .0 08 LF ti 20 8 95 ve TA 06 20 20 TI 90 11 11 NJ N 5 NA 80 C MG TA BL ET LE 68 05 05 1 15 30 76 KA Ac VE 18 -1 -1 0. 41 LF ti TI 00 34 ve RA 11 20 20 0 CE 30 11 11 NJ TA 2 NA M C 50 0 MG TA BL ET LI 00 04 05 3 30 30 76 SC Ac SI 18 -1 -1 .0 13 MINAYA ti NO 50 4 54 CK ve [place] 10 20 20 IL 11 11 11 BR 0 IA 10 N MG TA BL ET HY 00 12 05 1 30 [address] 17 -1 -0 .0 03 LF ti OC 22 4 95 ve HL 08 20 20 OR 38 10 11 NJ OT 0 NA HI C AZ ID E 25 MG TA B AC 00 01 05 2 60 30 75 KA Ac ET 40 -3 -0 .0 43 LF ti AM 60 1- 4 00 70 ve IN 48 20 20 OP 41 11 11 NJ HE 0 NA N- C CO D #3 TA BL ET NO 00 03 04 1 60 30 75 KA Ac RT 59 -2 -2 .0 93 LF ti RI 15 2 10 ve PT 78 20 20 YL 80 11 11 NJ IN 1 NA E C HC L 50 MG CA P AL 00 03 04 3 30 30 75 KA Ac LO 59 -2 -1 .0 94 LF ti PU 15 3 00 44 ve RI 54 20 20 NO 40 11 11 NJ L 5 NA 30 C 0 MG TA BL ET LE 68 03 04 1 15 30 75 KA Ac VE 18 -2 -1 0. 92 LF ti TI 00 1 8 43 ve RA 11 20 20 0 CE 30 11 11 NJ TA 2 NA M C 50 0 MG TA BL ET LI 00 04 04 3 30 30 76 SC Ac SI 18 -1 -1 .0 13 MINAYA ti NO 50 4- 4- 00 54 CK ve WY 10 20 20 IL 11 11 11 BR 0 IA 10 N MG TA BL ET SI 68 04 04 4 30 30 76 KA Ac MV 38 -0 -0 .0 08 LF ti 20 8- 8 00 95 ve TA 06 20 20 TI 90 11 11 NJ N 5 NA 80 C MG TA BL ET AL 00 03 03 3 30 30 75 KA Ac LO 59 -2 -2 .0 94 LF ti PU 15 3- 3 00 44 ve RI 54 20 20 NO 40 11 11 NJ L 5 NA 30 C 0 MG TA BL ET NO 00 03 03 1 60 30 75 KA Ac RT 59 -2 -2 .0 93 LF ti RI 15 2- 2- 00 10 ve PT 78 20 20 YL 80 11 11 NJ IN 1 NA E C HC L 50 MG CA P LE 68 03 03 1 15 30 75 KA Ac VE 18 -2 -2 0. 92 LF ti TI 00 43 ve RA 11 20 20 0 CE 30 11 11 NJ TA 2 NA M C 50 0 MG TA BL ET LI 00 01 03 2 30 30 75 KA Ac SI 18 -1 -1 .0 27 LF ti NO 50 05 ve [place] 10 20 20 IL 11 11 11 NJ 0 NA 10 C MG TA BL ET NO 00 11 03 1 30 30 74 KA Ac RT 59 -0 -0 .0 73 LF ti RI 15 9 7 93 ve PT 78 20 20 YL 80 10 11 NJ IN 1 NA E C HC L 50 MG CA P AC 00 01 02 2 60 30 75 KA Ac ET 40 -3 -2 .0 43 LF ti AM 60 70 ve IN 48 20 20 OP 41 11 11 NJ HE 0 NA N- C CO D #3 TA BL ET AL 53 12 02 2 30 30 74 KA Ac LO 48 -0 -1 .0 95 LF ti PU 90 3- 6 06 ve RI 15 20 20 NO 71 10 11 NJ L 0 NA 30 C 0 MG TA BL ET LE 68 01 02 1 15 30 75 KA Ac VE 18 -1 -1 0. 33 LF ti TI 00 8 6 36 ve RA 11 20 20 0 CE 30 11 11 NJ TA 2 NA M C 50 0 MG TA BL ET LI 00 01 02 2 30 30 75 KA Ac SI 18 -1 -1 .0 27 LF ti NO 50 1- 4- 00 05 ve [place] 10 20 20 IL 11 11 11 NJ 0 NA 10 C MG TA BL ET AC 00 01 01 2 60 30 75 KA Ac ET 40 -3 -3 .0 43 LF ti AM 60 1- 1- 00 70 ve IN 48 20 20 OP 41 11 11 NJ HE 0 NA N- C CO D #3 TA BL ET NO 00 01 01 3 60 30 75 KA Ac RT 59 -2 -2 .0 42 LF ti RI 15 8- 8- 00 31 ve PT 78 20 20 YL 80 11 11 NJ IN 1 NA E C HC L 50 MG CA P HY 00 12 01 1 30 [address] 17 -1 -1 .0 03 LF ti OC 22 4 8 00 95 ve HL 08 20 20 OR 38 10 11 NJ OT 0 NA HI C AZ ID E 25 MG TA B LE 68 01 01 1 15 30 75 KA Ac VE 18 -1 -1 0. 33 LF ti TI 00 8 36 ve RA 11 20 20 0 CE 30 11 11 NJ TA 2 NA M C 50 0 MG TA BL ET SI 68 01 01 1 30 30 75 KA Ac MV 38 -1 -1 .0 33 LF ti 20 8 8- 00 37 ve TA 06 20 20 TI 90 11 11 NJ N 5 NA 80 C MG TA BL ET NO 00 11 01 1 30 30 74 KA Ac RT 59 -0 -1 .0 73 LF ti RI 15 9- 3- 00 93 ve PT 78 20 20 YL 80 10 11 NJ IN 1 NA E C HC L 50 MG CA P LI 00 01 01 2 30 30 75 KA Ac SI 18 -1 -1 .0 27 LF ti NO 50 1- 1- 00 05 ve [place] 10 20 20 IL 11 11 11 NJ 0 NA 10 C MG TA BL ET AL 00 12 01 2 30 30 74 KA Ac LO 59 -0 -1 .0 95 LF ti PU 15 3- 0- 00 06 ve RI 54 20 20 NO 40 10 11 NJ L 5 NA 30 C 0 MG [...] 78 20 20 YL 80 10 10 NJ IN 1 NA E C HC L 50 MG CA P LE 68 11 12 1 15 30 74 KA Ac VE 18 -1 -1 0. 77 LF ti TI 00 2 3 12 ve RA 11 20 20 0 CE 30 10 10 NJ TA 2 NA M C 50 0 MG TA BL ET HY 00 10 12 1 30 [address] 17 -1 -0 .0 50 LF ti OC 22 3 9 00 20 ve HL 08 20 20 OR 38 10 10 NJ OT 0 NA HI C AZ ID E 25 MG TA B LI 00 10 12 1 30 30 74 KA Ac SI 18 -1 -0 .0 50 LF ti NO 50 21 ve [place] 10 20 20 IL 21 10 10 NJ 0 NA 20 C MG TA BL ET AL 00 12 12 2 30 30 74 KA Ac LO 59 -0 -0 .0 95 LF ti PU 15 3 06 ve RI 54 20 20 NO 40 10 10 NJ L 5 NA 30 C 0 MG TA BL ET AM 00 11 11 0 20 10 74 KA Ac OX 78 -2 -2 .0 89 LF ti IC 15 9 9 53 ve IL 06 20 20 LI 10 10 10 NJ N 1 NA 87 C 5 MG TA BL ET IN 00 08 11 2 90 30 73 KA Ac DO 09 -0 -2 .0 92 LF ti ME 34 4- 2- 00 73 ve TH 03 20 20 AC 00 10 10 NJ IN 5 NA C 50 MG CA PS UL E AC 00 11 11 0 60 30 74 KA Ac ET 40 -1 -1 .0 81 LF ti AM 60 7- 7- 00 33 ve IN 48 20 20 OP 41 10 10 NJ HE 0 NA N- C CO D #3 TA BL ET NO 00 11 11 1 30 30 74 KA Ac RT 59 -1 -1 .0 79 LF ti RI 15 6- 6 00 63 ve PT 78 20 20 YL 80 10 10 NJ IN 1 NA E C HC L 50 MG CA P LE 68 11 11 1 15 30 74 KA Ac VE 18 -1 -1 0. 77 LF ti TI 00 2 2 12 ve RA 11 20 20 0 CE 30 10 10 NJ TA 2 NA M C 50 0 MG TA BL ET SI 68 10 11 1 30 30 74 KA Ac MV 38 -0 -0 .0 42 LF ti 20 5- 1- 00 30 ve TA 06 20 20 TI 90 10 10 NJ N 5 NA 80 C MG TA BL ET HY 00 10 11 1 30 [address] 17 -1 -0 .0 50 LF ti OC 22 3- 1- 00 20 ve HL 08 20 20 OR 38 10 10 NJ OT 0 NA HI C AZ ID E 25 MG TA B CA 68 09 10 2 60 30 74 KA Ac RV 38 -0 -2 .0 18 LF ti ED 20 7- 5- 00 41 ve IL 09 20 20 OL 30 10 10 NJ 5 NA 6. C 25 MG TA BL ET NO 00 02 10 3 30 30 72 KA Ac RT 59 -0 -1 .0 41 LF ti RI 15 3- 8- 76 ve PT 78 20 20 YL 80 10 10 NJ IN 1 NA E C HC L 50 MG CA P LE 68 08 10 3 12 30 74 KA Ac VE 18 -2 -1 0. 06 LF ti TI 00 0- 8- 08 ve RA 11 20 20 0 CE 30 10 10 NJ TA 2 NA M C 50 0 MG TA BL ET CI 65 05 10 4 15 30 74 KA Ac TA 86 -2 -1 .0 07 LF ti LO 20 6- 3- 00 05 ve [place] 00 20 20 AM 70 10 10 NJ 5 NA HB C R 40 MG TA BL ET LI 00 05 10 0 28 28 74 KA Ac SI 18 -1 -1 .0 47 LF ti NO 50 0- 1- 00 15 ve [place] 10 20 20 IL 21 10 10 NJ 0 NA 20 C MG TA BL ET SI 68 10 10 1 30 30 74 KA Ac MV 38 -0 -0 .0 42 LF ti 20 5- 5- 00 30 ve TA 06 20 20 TI 90 10 10 NJ N 5 NA 80 C MG TA BL ET HY 00 05 10 0 28 [address] 17 -1 -0 .0 41 LF ti OC 22 0- 4- 00 63 ve HL 08 20 20 OR 38 10 10 NJ OT 0 NA HI C AZ ID E 25 MG TA B IN 00 08 10 2 90 30 73 KA Ac DO 09 -0 -0 .0 92 LF ti ME 34 4- 1- 00 73 ve TH 03 20 20 AC 00 10 10 NJ IN 5 NA C 50 MG CA PS UL E AC 00 09 10 0 60 30 74 KA Ac ET 40 -1 -0 .0 27 LF ti AM 60 5- 1- 00 03 ve IN 48 20 20 OP 41 10 10 NJ HE 0 NA N- C CO D #3 TA BL ET LE 68 08 09 3 12 30 74 KA Ac VE 18 -2 -2 0. 06 LF ti TI 00 0- 1- 00 08 ve RA 11 20 20 0 CE 31 10 10 NJ TA 6 NA M C 50 0 MG TA BL ET NO 00 02 09 3 30 30 72 KA Ac RT 59 -0 -1 .0 41 LF ti RI 15 3- 0- 00 76 ve PT 78 20 20 YL 80 10 10 NJ IN 1 NA E C HC L 50 MG CA P CA 68 09 09 2 60 30 74 KA Ac RV 38 -0 -0 .0 18 LF ti ED 20 7- 7- 00 41 ve IL 09 20 20 OL 30 10 10 NJ 5 NA 6. C 25 MG TA BL ET SI 68 12 09 0 30 30 74 KA Ac MV 38 -3 -0 .0 15 LF ti 20 1- 2- 00 27 ve TA 06 20 20 TI 90 09 10 NJ N 5 NA 80 C MG TA BL ET CI 65 08 08 4 15 30 74 KA Ac TA 16 -2 -2 .0 07 LF ti LO 20 3- 3- 00 05 ve [place] 05 20 20 AM 45 10 10 NJ 0 NA HB C R 40 MG TA BL ET AC 00 08 08 0 60 30 74 KA Ac ET 40 -2 -2 .0 06 LF ti AM 60 0- 0- 00 07 ve IN 48 20 20 OP 41 10 10 NJ HE 0 NA N- C CO D #3 TA BL ET LE 68 08 08 3 12 30 74 KA Ac VE 18 -2 -2 0. 06 LF ti TI 00 0- 0- 00 08 ve RA 11 20 20 0 CE 31 10 10 NJ TA 6 NA M C 50 0 MG TA BL ET IN 00 08 08 2 90 30 73 KA Ac DO 09 -0 -0 .0 92 LF ti ME 34 4- 4- 00 73 ve TH 03 20 20 AC 00 10 10 NJ IN 1 NA C 50 MG CA [...] DOS Code Location Performer Comment DIRECT [id number] [facility] HOME HOME HOME HEALTH/HO CARE CARE SPICE SET EA [facility] MIN DIRECT G0299 [facility] 7 [facility] HOME HOME HOME HEALTH/HO CARE CARE SPICE SET EA 15 MIN DIRECT G0299 [facility]HO [facility]ARE CARE SPICE SET EA 15 MIN NONEMERGE [id number] [facility] CAC [facility] NCY 7 INC TRANSPORT TRANSPORT REGION 9 ATION CO ATION: Alexandru Vanegas VAN DIRECT G0299 [facility]/HO CARE CARE SPICE SET EA 15 MIN THER [id number] [facility] PROPH/DX 7 BARBARA BARBARA NJX EA SEQL IV HEALTHCAR HEALTHCAR PUSH E EDGE E EDGE SBST/DRUG FAC NONEMERGE A0130 [facility]KLP CAC [facility] NCY 7 INC TRANSPORT TRANSPORT REGION 9 ATION CO ATION: Alexandru Vanegas VAN INJECTION J0131 [facility] 7 BARBARA BARBARA ACETAMINO PHEN 10 HEALTHCAR HEALTHCAR MG E EDGE E EDGE INJECTION J1642 [facility] HEPARIN 7 BARBARA BARBARA SODIUM PER 10 HEALTHCAR HEALTHCAR UNITS E EDGE E EDGE INJECTION J1650 [facility] 7 BARBARA BARBARA ENOXAPARI N SODIUM HEALTHCAR HEALTHCAR 10 MG E EDGE E EDGE THERAPEUT [id number] [facility] IC 7 BARBARA BARBARA PROPHYLAC TIC/DX HEALTHCAR HEALTHCAR INJECTION E EDGE E EDGE SUBQ/IM OBSERVATI 82454 [facility] ON CARE 7 BARBARA JR DISCHARGE PHYSICIAN MANAGEMEN S T POTASSIUM 89325 [facility] SERUM 7 BARBARA BARBARA PLASMA/WH OLE BLOOD HEALTH[facility] [place] [address] [facility] MAGNESIUM 7 BARBARA BARBARA HEALTHCAR HEALTHCAR E EDGE E EDGE MOD SED 49344 [facility] 7 BARBARA PHYS/QHP INITIAL PHYSICIAN 15 MINS S 5/> YRS MODERATE G0500 [facility] SEDAT 7 BARBARA BARBARA SRVC PROV SAME HEALTHCAR HEALTHCAR PHYS PERF E EDGE E EDGE [facility] [address] [facility] DISCHARGE 7 BARBARA JR DAY MANAGEMEN PHYSICIAN T > 30 S MIN THERAPEUT 69499 [facility] IC 7 BARBARA BARBARA PROPHYLAC TIC/DX HEALTHCAR HEALTHCAR INJECTION E EDGE E EDGE SUBQ/IM MOD SED 48054 [facility] 7 BARBARA PHYS/QHP EACH ADDL PHYSICIAN 15 MINS S INJECTION J1650 [facility] 7 BARBARA BARBARA ENOXAPARI N SODIUM HEALTHCAR HEALTHCAR 10 MG E EDGE E EDGE INJECTION J2250 [facility] 7 BARBARA BARBARA MIDAZOLAM HCL PER HEALTHCAR HEALTHCAR 1 MG E EDGE E EDGE PREALBUMI 81165 [facility] N 7 BARBARA BARBARA HEALTHCAR HEALTHCAR E EDGE E EDGE INJECTION J0131 [facility] 7 BARBARA BARBARA ACETAMINO PHEN 10 HEALTHCAR HEALTHCAR MG E EDGE E EDGE EGD 74601 [facility] PERCUTANE 7 BARBARA OUS PLACEMENT PHYSICIAN S GASTROSTO MY TUBE THER 05638 [facility] PROPH/DX 7 BARBARARED JIMENEZ NJX EA SEQL IV HEALTHCAR HEALTHCAR PUSH E EDGE E EDGE SBST/DRUG FAC INJECTION J1200 [place] [address] BARBARA BARBARA DIPHENHYD RAMINE HEALTHCAR HEALTHCAR HCL UP TO E EDGE E EDGE 50 MG INJECTION [id number] [facility] FENTANYL 7 BARBARA BARBARA CITRATE 0.1 MG [place] [address] [facility] INFUSION 7 BARBARA BARBARA HYDRATION EACH HEALTHCAR HEALTHCAR AD[place] [address] [facility] INFUSION 7 BARBARA BARBARA HYDRATION EACH HEALTHCAR HEALTHCAR ADDITIONA E EDGE E EDGE L HOUR THER 66638 [facility] PROPH/DX 7 BARBARAJOSAFAT JIMENEZ NJX EA SEQL IV HEALTHCAR HEALTHCAR PUSH E EDGE E EDGE SBST/DRUG FAC HOSPITAL G0378 [facility] OBSERVATI 7 BARBARA JIMENEZ ON SERVICE HEALTHCAR HEALTHCAR PER HOUR E EDGE E EDGE INITIAL 60167 [facility] INPATIENT 7 BARBARA CONSULT NEW/ESTAB PHYSICIAN PT 80 S MIN INJECTION J0131 [place] [address] BARBARA JIMENEZ ACETAMINO PHEN 10 HEALTHCAR HEALTHCAR MG E EDGE E EDGE INJECTION J1650 [place] [address] BARBARA BARBARA ENOXAPARI N SODIUM HEALTHCAR HEALTHCAR 10 MG E EDGE E EDGE THERAPEUT 03552 [facility] IC 7 BARBARASARAH JIMENEZ PROPHYLAC TIC/DX HEALTHCAR HEALTHCAR INJECTION E EDGE E EDGE SUBQ/IM SBSQ 03165 [place] [address] BARBARA JR CARE/DAY 25 PHYSICIAN MINUTES S AMBULANCE A0429 SHAI SHAI SERVICE 7 CO CO BLS AMBULANCE AMBULANCE EMERGENCY TAXIN TAXIN TRANSPORT THER [address]92 [facility] PROPH/DX 7 BARBARA BARBARA NJX IV PUSH HEALTHCAR HEALTHCAR SINGLE/1S E EDGE E EDGE T SBST/DRUG GROUND A0425 SHAI SHAI MILEAGE 7 CO CO PER AMBULANCE AMBULANCE STATUTE TAXIN TAXIN MILE THERAPEUT [address]4589 [facility] IC 7 BARBARA BARBARA PROPHYLAC TIC/DX HEALTHCAR HEALTHCAR INJECTION E EDGE E EDGE SUBQ/IM INITIAL 36983 [facility] 7 MORAN CARE/DAY 50 PHYSICIAN MINUTES S INJECTION J0131 [facility] 7 BARBARA BARBARA ACETAMINO PHEN 10 HEALTHCAR HEALTHCAR MG E EDGE E EDGE INJECTION J2270 [facility] MORPHINE 7 BARBARA BARBARA SULFATE UP TO 10 [place] [address] [facility] INFUSION 7 BARBARA BARBARA HYDRATION EACH HEALTHCAR [...] CAPTAINS CHAIR PT TO &=300 LBS CHIROPRAC [address]113 [facility] TIC 7 CHIROPRA CHIROPRAC MANIPULAT TIC TIC [facility] CENTER SPINAL 1-2 REGIONS NONEMERGE A0130 [facility] 7 INC TRANSPORT TRANSPORT REGION 9 ATION CO ATION: Alexandru WILLAMS PHYSICAL 03433 [facility] [...] 9 ACTION_I ATION: MARYCRUZ Vanegas VAN ECG [address] ST JAJA ROUTINE 7 BARBARA ECG MED CTR W/LEAST 12 LDS I&[place] [address] INFUSION 7 BARBARA BRABARA HYDRATION EACH HEALTHCAR HEALTHCAR AD[place] [address] LACTATE 7 BARBARA BARBARA HEALTHCAR HEALTHCAR E EDGE E EDGE RADIOLOGI [address] C EXAM 7 BARBARA BARBARA CHEST 2 VIEWS HEALTHCAR HEALTHCAR FRONTAL&L E EDGE E EDGE ATERAL BASIC [address] METABOLIC 7 BARBARA BARBARA PANEL CALCIUM HEALTHCAR HEALTHCAR TOTAL E EDGE E EDGE THER [address] PROPH/DX 7 BARBARA BARBARA NJX IV PUSH HEALTHCAR HEALTHCAR SINGLE/1S E EDGE E EDGE T SBST/DRUG INJECTION J1642 ST ST HEPARIN 7 BARBARA BARBARA SODIUM PER 10 HEALTHCAR [place]ALTH[place] [address] TROPONIN 7 BARBARA BARBARA QUANTITAT SURENDRA HEALTHCAR HEALTHCAR E EDGE E EDGE BLOOD [address] COUNT 7 BARBARA BARBARA COMPLETE AUTO&AUTO HEALTHCAR HEALTHCAR DIFRNTL E EDGE E EDGE WBC ECG [address] ROUTINE 7 BARBARA BARBARA ECG W/LEAST HEALTHCAR HEALTHCAR 12 LDS E EDGE E EDGE TRCG ONLY W/O I&R COLLECTIO [address] N VENOUS 7 BARBARA BARBARA BLOOD VENIPUNCT HEALTHCAR HEALTHCAR URE E EDGE E EDGE NONEMERGE A0130 [facility] 7 INC TRANSPORT TRANSPORT REGION 9 ATION CO ATION: L MARYCRUZ Vanegas VAN RADIOLOGI 62375 RADIOLOGY DOERGER C EXAM 7 CHEST 2 ASSOCIATE VIEWS S OF NOTH FRONTAL&L ATERAL GROUND A0425 SHAI SHAI MILEAGE 7 CO CO PER AMBULANCE AMBULANCE STATUTE TAXIN TAXIN MILE AMB A0427 SHAI SHAI SERVICE 7 CO CO ALS AMBULANCE AMBULANCE EMERGENCY TAXIN TAXIN TRANSPORT LEVEL 1 IRRIGAJ 12140 [facility] IMPLNTD 7 [facility] VENOUS ACCESS HEALTHCAR HEALTHCAR DRUG E EDGE E EDGE DELIVERY SYST NONEMERGE A0130 [facility] 7 INC TRANSPORT TRANSPORT REGION 9 ATION CO ATION: Alexandru WILLAMS NONEMERGE A0130 LK[facility] 7 INC TRANSPORT TRANSPORT REGION 9 ATION CO ATION: Alexandru WILLAMS LIPID 42129 [facility] PANEL 7 [facility] [facility] E EDGE E EDGE HEPATIC [address]255 [facility] FUNCTION 7 [facility] PANEL HEALTHCAR HEALTHCAR E EDGE E EDGE HEPATITIS [id number] [facility] C ABO SC 7 [facility] IND HIGH RISK&OTH HEALTHCAR HEALTHCAR CVRD E EDGE E EDGE INDIC COLLECTIO 71704 [facility] N VENOUS 7 [facility] BLOOD VENIPUNCT HEALTHCAR HEALTHCAR URE E EDGE E EDGE IRRIGAJ 30100 [facility] IMPLNTD 7 [facility] VENOUS ACCESS HEALTHCAR HEALTHCAR DRUG E EDGE E EDGE DELIVERY SYST BLOOD 86292 [facility] COUNT 7 [facility] COMPLETE AUTO&AUTO HEALTHCAR HEALTHCAR DIFRNTL E EDGE E EDGE WBC NONEMERGE A0130 L[facility]LP CAC [facility]TS NCY 7 INC TRANSPORT TRANSPORT REGION 9 ATION CO ATION: Alexandru WILLAMS COMPREHEN 80576 [facility] SIVE 7 [facility] METABOLIC PANEL HEALTHCAR HEALTHCAR E EDGE E EDGE EGD 87952 [facility] PERCUTANE 7 [facility] OUS PLACEMENT HEALTHCAR HEALTHCAR E EDGE E [...] HEALTHCAR MG E EDGE E EDGE ANES 10486 ANESTHESI CAMILLI UPPER GI 7 A GROUP [...] ATION CO ATION: Alexandru Vanegas VAN MOTION [address] FLUOR 6 BARBARA BARBARA EVAL MED CTR MED CTR SWLNG WATER GAS OPERATOR ST WATER GAS OPERATOR ST FUNCJ C/[place] [address] SWALLOWIN 6 BARBARA BARBARA G MED CTR MED CTR DYSFUNCTI WATER GAS OPERATOR ST WATER GAS OPERATOR ST ON&/ORAL FUNCJ FEEDING SWALLOWIN [address] G FUNCJ 6 BARBARA BARBARA W/CINERAD MED CTR MED CTR IOGRAPY/V WATER GAS OPERATOR ST WATER GAS OPERATOR ST IDRADIOG CT SOFT 63602 RADIOLOGY WELLS SEA TISSUE 6 NECK ASSOCIATE W/CONTRAS S OF NOTH T MATERIAL CT THORAX 52099 RADIOLOGY TONY 6 NORA W/CONTRAS ASSOCIATE T S OF NOTH MATERIAL INJECTION J1642 ST ST HEPARIN 6 BARBARA BARBARA SODIUM MED CTR MED CTR PER [address] WATER GAS OPERATOR ST UNITS CREATININ [address] E BLOOD 6 BARBARA BARBARA MED CTR MED CTR WATER GAS OPERATOR ST WATER GAS OPERATOR ST LOCM Q9967 ST ST 300-399 6 BARBARA BARBARA MG/ML MED CTR MED CTR IODINE WATER GAS OPERATOR [facility] ST CONCENTRA TION [place] TH[place] [address] [place] PROPH/DX 6 [facility] MEM [...] P DAY 8-14 [place]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 NCY 4 INC [facility] 9 ACTION_I ATION: MARYCRUZ WILLAMS NONEMERGE A0130 LKLP CAC LKLP NCY 4 INC [facility] 9 ACTION_[place]: [place] [address] [facility] 4 BARBARA BARBARA RADIATION MED CTR MED CTR THERAPY WATER GAS OPERATOR ST WATER GAS OPERATOR ST FLDS PLACEMENT NTSTY [address] MODUL 4 BARBARA BARBARA DLVR MED CTR MED CTR 1/HAT BRIM CURLER WATER GAS OPERATOR ST WATER GAS OPERATOR ST FLDS/ARCS [place] TX SESSION NTSTY [address] MODUL 4 BARBARA BARBARA DLVR MED CTR MED CTR 1/HAT BRIM CURLER WATER GAS OPERATOR ST WATER GAS OPERATOR ST FLDS/[place] [address] GUIDANCE 4 BARBARA BARBARA RADIATION MED CTR MED CTR THERAPY WATER GAS OPERATOR ST WATER GAS OPERATOR ST FLDS PLACEMENT NONEMERGE A0130 LKLP CAC LKLP NCY 4 INC [facility] 9 ACTION_I ATION: MARYCRUZ WILLAMS THERAPEUT 70997 [facility] IC PX 1/> 4 [place] AREAS CARE & CARE & EACH 15 REHABILI REHABILI MIN EXERCISES THERAPEUT 23968 [place] ACTVITY 4 [place] DIRECT PT CARE & CARE & CONTACT REHABILI REHABILI EACH 15 [place] [address] [place] 1/> AREAS 4 [place] EA 15 CARE & CARE & MIN GAIT REHABILI REHABILI TRAINJ W/STAIR CONTINUIN [address] [facility] 4 BARBARA BARBARA PHYSICS MED CTR MED CTR CONSLTJ WATER GAS OPERATOR ST WATER GAS OPERATOR ST W[place] WK NONEMERGE A0130 LKLP CAC LKLP NCY 4 INC [facility] 9 ACTION_[place]: [place] [address] [facility]UIDANCE 4 BARBARA BARBARA RADIATION MED CTR MED CTR THERAPY WATER GAS OPERATOR ST WATER GAS OPERATOR ST FLDS PLACEMENT NTSTY [address] MODUL 4 BARBARA BARBARA DLVR MED CTR MED CTR 1/HAT BRIM CURLER WATER GAS OPERATOR ST WATER GAS OPERATOR ST FLDS/ARCS [place] TX SESSION NTSTY [address] MODUL 4 BARBARA BARBARA DLVR MED CTR MED CTR 1/HAT BRIM CURLER WATER GAS OPERATOR ST WATER GAS OPERATOR ST FLDS/[place] [address] GUIDANCE 4 BARBARA BARBARA RADIATION MED CTR MED CTR THERAPY WATER GAS OPERATOR ST WATER GAS OPERATOR ST FLDS PLACEMENT RADIATION 92556 ONCOLOGY MORENO PRA 4 HEMATOLOG TREATMENT Y CARE, IN MANAGEMEN T 5 [place] [address] [place] 1/> AREAS 4 [place] EA 15 CARE & CARE & MIN GAIT REHABILI REHABILI TRAINJ W/STAIR THERAPEUT 97963 [place] IC PX 1/> 4 [place] AREAS CARE & CARE & EACH 15 REHABILI REHABILI MIN EXERCISES THERAPEUT 91175 [place] IC PX 1/> 4 [place] AREAS CARE & CARE & EACH 15 REHABILI REHABILI MIN EXERCISES BLOOD 78027 ONCOLOGY CALLI COUNT 4 HEMATOLOG LAW COMPLETE Y CARE, AUTO&AUTO IN DIFRNTL WBC COMPREHEN 68967 ONCOLOGY CALLI SIVE 4 HEMATOLOG LAW METABOLIC Y CARE, PANEL IN THERAPEUT 56089 ONCOLOGY POLI CHR IC 4 HEMATOLOG INJECTION Y CARE, [place] [address] ONCOLOGY POLI CHR INFUSION 4 HEMATOLOG HYDRATION Y CARE, [place] [address] ONCOLOGY POLI CHR INFUSION 4 HEMATOLOG THER Y CARE, PROPH IN ADDL SEQUENTIA L TO 1 HR INJECTION J9060 ONCOLOGY POLI CHR 4 HEMATOLOG CISPLATIN Y CARE, POWDER IN OR SOLUTION 10 MG INJECTION J2469 ONCOLOGY POLI CHR 4 HEMATOLOG PALONOSET Y CARE, VICENTE HCL IN 25 MCG CHEMOTX 74081 ONCOLOGY POLI CHR ADMN IV 4 HEMATOLOG NFS TQ UP Y CARE, 1 HR IN SBST/[place] [address] [facility] 4 BARBARA BARBARA RADIATION MED CTR MED CTR THERAPY WATER GAS OPERATOR ST WATER GAS OPERATOR ST FLDS PLACEMENT NONEMERGE A0130 LKLP CAC LKLP NCY 4 INC [facility] 9 ACTION_I ATION: MARYCRUZ Vanegas VAN INJECTION J1453 ONCOLOGY POLI CHR 4 HEMATOLOG FOSAPREPI Y CARE, TANT 1 [place] [address] [facility] 4 BARBARA BARBARA MED CTR MED CTR WATER GAS OPERATOR ST WATER GAS OPERATOR ST NTSTY 25600 [facility] MODUL 4 [place] DLVR MED CTR COMM CARE 1/HAT BRIM CURLER WATER GAS OPERATOR ST FLDS/ARCS [place] TX SESSION COLLECTIO 85592 ONCOLOGY POLI CHR N 4 HEMATOLOG CAPILLARY Y CARE, BLOOD IN SPECIMEN NTSTY 41068 [facility] MODUL 4 [place] DLVR MED CTR COMM CARE 1/HAT BRIM CURLER WATER GAS OPERATOR ST FLDS/[place] [address] [place] 1/> AREAS 4 [place] EACH 15 CARE & CARE & MIN REHABIL[place] [address] GUIDANCE 4 BARBARA BARBARA RADIATION MED CTR MED CTR THERAPY WATER GAS OPERATOR ST WATER GAS OPERATOR ST FLDS PLACEMENT THERAPEUT 91475 [place] IC PX 1/> 4 [place] AREAS CARE & CARE & EACH 15 REHABILI REHABILI MIN EXERCISES THERAPEUT 50029 [place] IC PX 1/> 4 [place] AREAS CARE & CARE & EACH 15 [place] [address] [place] 1/> AREAS 4 [place] EACH 15 CARE & CARE & MIN REHABILI REHABILI NEUROMUSC REEDUCA CONTINUIN [address] ST [address] G MEDICAL 4 BARBARA BARBARA PHYSICS MED CTR MED CTR CONSLTJ WATER GAS OPERATOR ST [place] [address] GUIDANCE 4 BARBARA BARBARA RADIATION MED CTR MED CTR THERAPY WATER GAS OPERATOR ST WATER GAS OPERATOR ST FLDS PLACEMENT NONEMERGE A0130 LKLP CAC LKLP NCY 4 INC [facility] TRANSP[facility] REG[facility] 9 ACTION_I ATION: MARYCRUZ WILLAMS NTSTY 47933 ST MODUL 4 BARBARA BARBARA DLVR MED CTR MED CTR 1/HAT BRIM CURLER WATER GAS OPERATOR ST WATER GAS OPERATOR ST FLDS/ARCS [place] SESSION NTSTY [address] MODUL 4 BARBARA BARBARA DLVR MED CTR MED CTR 1/HAT BRIM CURLER WATER GAS OPERATOR ST WATER GAS OPERATOR ST FLDS/[place] [address] GUIDANCE 4 BARBARA BARBARA RADIATION MED CTR MED CTR THERAPY WATER GAS OPERATOR ST WATER GAS OPERATOR ST FLDS PLACEMENT THERAPEUT 32215 [place] IC PX 1/> 4 [place] AREAS CARE & CARE & EACH 15 REHABILI REHABILI MIN EXERCISES NONEMERGE A0130 LKLP CAC LKLP NCY 4 INC [facility] TRANSPORT REGION 9 ACTION_I ATION: MARYCRUZ WILLAMS THERAPEUT 36303 [place] ACTVITY 4 [place] DIRECT PT CARE & CARE & CONTACT REHABILI REHABILI EACH [address] [place] [address] [place] 1/> AREAS 4 [place] EA 15 CARE & CARE & MIN GAIT REHABILI REHABILI TRAINJ W/STAIR THERAPEUT 33222 [place] IC PX 1/> 4 [place] AREAS CARE & CARE & EACH 15 REHABILI REHABILI MIN EXERCISES RADIATION 44356 ONCOLOGY [facility] 4 HEMATOLOG TREATMENT Y CARE, IN MANAGEMEN T [address] [place] [address] GUIDANCE 4 BARBARA BARBARA RADIATION MED CTR MED CTR THERAPY WATER GAS OPERATOR ST WATER GAS OPERATOR ST FLDS PLACEMENT NTSTY [address] MODUL 4 BARBARA BARBARA DLVR MED CTR MED CTR 1/HAT BRIM CURLER WATER GAS OPERATOR ST WATER GAS OPERATOR ST FLDS/ARCS WY TX SESSION NONEMERGE A0130 LKLP CAC LKLP NCY 4 INC [facility] 9 ACTION_I ATION: MARYCRUZ WILLAMS NTSTY [address] MODUL 4 BARBARA BARBARA DLVR MED CTR MED CTR 1/HAT BRIM CURLER WATER GAS OPERATOR ST WATER GAS OPERATOR ST FLDS/ARCS WY TX SESSION NONEMERGE A0130 LKLP CAC LKLP NCY 4 INC [facility] TRAN[facility] 9 ACTION_[place]: [place] [address] GUIDANCE 4 BARBARA BARBARA RADIATION MED CTR MED CTR THERAPY WATER GAS OPERATOR ST WATER GAS OPERATOR ST FLDS PLACEMENT INJECTION J1453 ONCOLOGY CALLI 4 HEMATOLOG LAW FOSAPREPI Y CARE, TANT 1 MG IN COMPREHEN 50995 ONCOLOGY CALLI SIVE 4 HEMATOLOG LAW METABOLIC Y CARE, PANEL IN THERAPEUT 46127 ONCOLOGY CALLI IC 4 HEMATOLOG LAW INJECTION Y CARE, [place] [address] ONCOLOGY CALLI INFUSION 4 HEMATOLOG LAW THER Y CARE, PROPH IN ADDL SEQUENTIA L TO 1 HR CHEMOTX 27151 ONCOLOGY CALLI ADMN IV 4 HEMATOLOG LAW NFS TQ UP Y CARE, 1 HR IN SBST/DRUG INJECTION J9060 ONCOLOGY CALLI 4 HEMATOLOG LAW CISPLATIN Y CARE, POWDER IN OR SOLUTION 10 MG INJECTION J2469 ONCOLOGY CALLI 4 HEMATOLOG LAW PALONOSET Y CARE, VICENTE HCL IN 25 MCG BLOOD 29120 ONCOLOGY CALLI COUNT 4 HEMATOLOG LAW COMPLETE Y CARE, AUTO&AUTO IN DIFRNTL WBC THERAPEUT 17894 [place] IC PX 1/> 4 [place] AREAS CARE & CARE & EACH 15 [place] [address] [place] 1/> AREAS 4 [place] EACH 15 CARE & CARE & MIN REHABILI REHABILI NEUROMUSC REEDUCA SELF-CARE 29551 [place] /HOME 4 [place] MGMT CARE & CARE & TRAINING REHABILI REHABILI EACH [address] [place] [address] GUIDANCE 4 BARBARA BARBARA RADIATION MED CTR MED CTR THERAPY WATER GAS OPERATOR ST WATER GAS OPERATOR ST FLDS PLACEMENT NONEMERGE A0130 LKLP CAC LKLP NCY 4 INC [facility] TRANSPORT REGION 9 ACTION_I ATION: MARYCRUZ WILLAMS NTSTY [address] MODUL 4 BARBARA BARBARA DLVR MED CTR MED CTR 1/HAT BRIM CURLER WATER GAS OPERATOR ST WATER GAS OPERATOR ST FLDS/ARCS [place] TX SESSION NTSTY [address] MODUL 4 BARBARA BARBARA DLVR MED CTR MED CTR 1/HAT BRIM CURLER WATER GAS OPERATOR ST WATER GAS OPERATOR ST FLDS/ARCS WY TX SESSION NONEMERGE A0130 LKLP CAC LKLP NCY 4 INC [facility] TRANSP[facility] REGION 9 ACTION_[place]: [place] [address] ONCOLOGY IMWALLE GUIDANCE 4 HEMATOLOG LLOYD RADIATION Y CARE, THERAPY IN FLDS PLACEMENT VASC [address] ACCESS 4 BARBARA BARBARA SITS VSL MED CTR MED CTR PATENCY WATER GAS OPERATOR ST WATER GAS OPERATOR ST NDL ENTRY INSJ [address] TUNNELED 4 BARBARA BARBARA CTR VAD MED CTR MED CTR W/SUBQ WATER GAS OPERATOR ST WATER GAS OPERATOR ST PORT AGE 5 YR/> FLUORO [address] CENTRAL 4 BARBARA BARBARA VENOUS MED CTR MED CTR ACCESS WATER GAS OPERATOR ST WATER GAS OPERATOR ST DEV PLACEMENT CONTINUIN [address] G MEDICAL 4 BARBARA BARBARA PHYSICS MED CTR MED CTR CONSLTJ WATER GAS OPERATOR ST WATER GAS OPERATOR ST [place]Y WK THERAPEUT 17735 [place] IC PX 1/> 4 [place] AREAS CARE & CARE & EACH 15 REHABILI REHABILI MIN EXERCISES BLOOD [address] COUNT 4 BARBARA BARBARA COMPLETE MED CTR MED CTR AUTO&AUTO WATER GAS OPERATOR ST WATER GAS [place] [address] [place] 1/> AREAS 4 [place] EA 15 CARE & CARE & MIN GAIT REHABILI REHABILI TRAINJ W/STAIR COLLECTIO [address] N VENOUS 4 BARBARA BARBARA BLOOD MED CTR MED CTR VENIPUNCT WATER GAS OPERATOR ST WATER GAS OPERATOR ST URE PROTHROMB 87651 [facility] IN TIME 4 [place] MED CTR COMM C[place] [address] ONCOLOGY MINDA GUIDANCE 4 HEMATOLOG JANNA RADIATION Y CARE, THERAPY IN FLDS PLACEMENT NONEMERGE A0130 LKLP CAC LKLP NCY 4 INC [facility] 9 ACTION_I ATION: MARYCRUZ WILLAMS NTSTY [address] MODUL 4 BARBARA BARBARA DLVR MED CTR MED CTR 1/HAT BRIM CURLER WATER GAS OPERATOR ST WATER GAS OPERATOR ST FLDS/ARCS [place] SESSION NTSTY [address] MODUL 4 BARBARA BARBARA DLVR MED CTR MED CTR 1/HAT BRIM CURLER WATER GAS OPERATOR ST WATER GAS OPERATOR ST FLDS/[place] [address] GUIDANCE 4 BARBARA BARBARA RADIATION MED CTR MED CTR THERAPY WATER GAS OPERATOR ST WATER GAS OPERATOR ST FLDS PLACEMENT NONEMERGE A0130 LKLP CAC LKLP NCY 4 INC [facility] TRANSP[facility] REGION 9 ACTION_[place]: [place] [address] [place] 1/> AREAS 4 [place] EA 15 CARE & CARE & MIN GAIT REHABILI REHABILI TRAINJ W/STAIR THERAPEUT 90281 [place] ACTVITY 4 [place] DIRECT PT CARE & CARE & CONTACT REHABILI REHABILI EACH 15 MIN THERAPEUT 11272 [place] IC PX 1/> 4 [place] AREAS CARE & CARE & EACH 15 REHABILI REHABILI MIN EXERCISES RADIATION 73621 ONCOLOGY MORENO PRA 4 HEMATOLOG TREATMENT Y CARE, IN MANAGEMEN T 5 TREATMENT S THERAPEUT 50680 [place] IC PX 1/> 4 [place] AREAS CARE & CARE & EACH 15 [place] [address] [place] 1/> AREAS 4 [place] EACH 15 CARE & CARE & MIN REHABILI REHABILI NEUROMUSC REEDUCA THERAPEUT 12302 [place] ACTVITY 4 [place] DIRECT PT CARE & CARE & CONTACT REHABILI REHABILI EACH [address] TREATMENT 4 BARBARA BARBARA MED CTR MED CTR PROCEDURE WATER GAS OPERATOR ST WATER GAS OPERATOR ST NONEMERGE A0130 LKLP CAC LKLP NCY 4 INC [facility] TRANSPORT REGION 9 ACTION_[place]: [place] [address] GUIDANCE 4 BARBARA BARBARA RADIATION MED CTR MED CTR THERAPY WATER GAS OPERATOR ST WATER GAS OPERATOR ST FLDS PLACEMENT NTSTY [address] MODUL 4 BARBARA BARBARA DLVR MED CTR MED CTR 1/HAT BRIM CURLER WATER GAS OPERATOR ST WATER GAS OPERATOR ST FLDS/ARCS [place] SESSION NTSTY [address] MODUL 4 BARBARA BARBARA DLVR MED CTR MED CTR 1/HAT BRIM CURLER WATER GAS OPERATOR ST WATER GAS OPERATOR ST FLDS/[place] [address] GUIDANCE 4 BARBARA BARBARA RADIATION MED CTR MED CTR THERAPY WATER GAS OPERATOR ST WATER GAS OPERATOR ST FLDS PLACEMENT NONEMERGE A0130 LKLP CAC LKLP NCY 4 [facility] TRANSPORT REGION 9 ACTION_I ATION: MARYCRUZ WILLAMS BLOOD 75275 ONCOLOGY CALLI COUNT 4 HEMATOLOG LAW COMPLETE Y CARE, AUTO&AUTO IN DIFRNTL WBC COMPREHEN 15411 ONCOLOGY ONCOLOGY SIVE 4 HEMATOLOG HEMATOLOG METABOLIC Y CARE, Y CARE, PANEL IN IN CONTINUIN [address] G MEDICAL 4 BARBARA BARBARA PHYSICS MED CTR MED CTR CONSLTJ WATER GAS OPERATOR ST WATER GAS OPERATOR ST WY WK NONEMERGE A0130 LKLP CAC LKLP NCY 4 [facility] TRANSPORT REGION 9 ACTION_I ATION: MARYCRUZ WILLAMS NTSTY [address] MODUL 4 BARBARA BARBARA DLVR MED CTR MED CTR 1/HAT BRIM CURLER WATER GAS OPERATOR ST WATER GAS OPERATOR ST FLDS/[place] [address] GUIDANCE 4 BARBARA BARBARA RADIATION MED CTR MED CTR THERAPY WATER GAS OPERATOR ST WATER [place] [address] GUIDANCE 4 BARBARA BARBARA RADIATION MED CTR MED CTR THERAPY WATER GAS OPERATOR ST WATER GAS OPERATOR ST FLDS PLACEMENT NTSTY [address] MODUL 4 BARBARA BARBARA DLVR MED CTR MED CTR 1/HAT BRIM CURLER WATER GAS OPERATOR ST WATER GAS OPERATOR ST FLDS/ARCS WY TX SESSION NONEMERGE A0130 LKLP CAC LKLP NCY 4 [facility] TRANSPORT REGION 9 ACTION_I ATION: MARYCRUZ [place] [address] SIMULAJ-A 4 BARBARA BARBARA IDED MED CTR MED CTR FIELD WATER GAS OPERATOR ST WATER GAS OPERATOR ST SETTING SIMPLE THERAPEUT 97723 [place] IC PX 1/> 4 [place] AREAS CARE & CARE & EACH 15 [place] [address] [place] 1/> AREAS 4 [place] EA 15 CARE & CARE & MIN GAIT REHABILI REHABILI TRAINJ W/STAIR THERAPEUT 20337 [place] ACTVITY 4 [place] DIRECT PT CARE & CARE & CONTACT REHABILI REHABILI EACH 15 MIN THERAPEUT 72503 [place] IC PX 1/> 4 [place] AREAS CARE & CARE & EACH 15 [place] [address] [place] 1/> AREAS 4 [place] EA 15 CARE & CARE & MIN GAIT REHABILI REHABILI TRAINJ W/STAIR THERAPEUT 25308 [place] IC PX 1/> 4 [place] AREAS CARE & CARE & EACH 15 REHABILI REHABILI MIN EXERCISES THERAPEUT 36723 [place] IC PX 1/> 4 [place] AREAS CARE & CARE & EACH 15 [place] [address] [place] 1/> AREAS 4 [place] EA 15 CARE & CARE & MIN GAIT REHABILI REHABILI TRAINJ W/STAIR SELF-CARE 79793 [place] /HOME 4 [place] MGMT CARE & CARE & TRAINING REHABILI REHABILI EACH [address] MEDICAL 4 BARBARA BARBARA RADJ MED CTR MED CTR PHYSICS WATER GAS OPERATOR ST WATER GAS OPERATOR ST CONSLTJ MLC IMRT [address] DESIGN & 4 BARBARA BARBARA CONSTRUCT MED CTR MED CTR ION PER WATER GAS OPERATOR ST WATER GAS OPERATOR ST IMRT PLAN NTSTY [address] MODUL 4 BARBARA BARBARA RADTHX MED CTR MED CTR PLN WATER GAS OPERATOR ST WATER GAS OPERATOR [place] [address] [place] 1/> AREAS 4 [place] EA 15 CARE & CARE & MIN GAIT REHABILI REHABILI TRAINJ W/STAIR THERAPEUT 27600 [place] ACTVITY 4 [place] DIRECT PT CARE & CARE & CONTACT REHABILI REHABILI EACH 15 MIN THERAPEUT 36488 [place] IC PX 1/> 4 [place] AREAS CARE & CARE & EACH 15 REHABILI REHABILI MIN EXERCISES BASIC [address] RADIATION 4 BARBARA BARBARA MED CTR MED CTR DOSIMETRY WATER GAS OPERATOR ST WATER GAS [place] [address] [place] 1/> AREAS 4 [place] EACH 15 CARE & CARE & MIN REHABILI REHABILI NEUROMUSC REEDUCA THERAPEUT 73304 [place] IC PX 1/> 4 [place] AREAS CARE & CARE & EACH 15 [place] [address] [place] 1/> AREAS 4 [place] EA 15 CARE & CARE & MIN GAIT REHABILI REHABIL[place] TRAINJ W/[place] [address] [place] SWALLOWIN 4 [place] G CARE & CARE & DYSFUNCTI REHABILI REHABILI ON&/[place] [address] [place] SWALLOWIN 4 [place] G CARE & CARE & DYSFUNCTI REHABILI REHABILI ON&/[place] [address] [place] 1/> AREAS 4 [place] EA 15 CARE & CARE & MIN GAIT REHABILI REHABILI TRAINJ W/STAIR THERAPEUT 66496 [place] IC PX 1/> 4 [place] AREAS CARE & CARE & EACH 15 [place] [address] [place] SWALLOWIN 4 [place] G CARE & CARE & DYSFUNCTI REHABILI REHABILI ON&/ORAL FUNCJ FEEDING SELF-CARE 47327 [place] /HOME 4 [place] MGMT CARE & CARE & TRAINING REHABILI REHABILI EACH 15 MINUTES THERAPEUT 76319 BRIDGE BRIDGE IC PX 1/> 4 POINT POINT AREAS CARE & CARE & EACH 15 [place] [address] BRIDGE BRIDGE 1/> AREAS 4 PO[place] POINT EA 15 CARE & CARE & MIN GAIT REHABILI REHABILI TRAINJ W/[place] [address] BRIDGE CUMBERLAN 1/> AREAS 4 [place] EACH 15 CARE & BEHAVIORA [place] RE[place] [address] BRIDGE CUMBERLAN 1/> AREAS 4 [place] EA 15 CARE & BEHAVIORA MIN GAIT REHABILI L TRAINJ W/STAIR THERAPEUT 35549 BRIDGE BRIDGE ACTVITY 4 POINT POINT DIRECT PT CARE & CARE & CONTACT REHABILI REHABILI EACH 15 MIN THERAPEUT 06839 BRIDGE BRIDGE IC PX 1/> 4 [place]INT AREAS CARE & CARE & EACH 15 [place] [address] BRIDGE BRIDGE SWALLOWIN 4 POINT POINT G CARE & CARE & DYSFUNCTI REHABILI REHABILI ON&/[place] [address] BRIDGE BRIDGE SWALLOWIN 4 PO[place] POINT G CARE & CARE & DYSFUNCTI REHABILI REHABILI ON&/ORAL FUNCJ FEEDING SELF-CARE 08347 BRIDGE BRIDGE /HOME 4 POINT POINT MGMT CARE & CARE & TRAINING REHABILI REHABILI EACH 15 MINUTES THERAPEUT 88049 BRIDGE BRIDGE IC PX 1/> 4 [place] AREAS CARE & CARE & EACH 15 [place] [address] BRIDGE BRIDGE 1/> AREAS 4 [place] EA 15 CARE & CARE & MIN GAIT REHABILI REHABILI TRAINJ W/[place] [address] BRIDGE BRIDGE 1/> AREAS 4 [place] EACH 15 CARE & CARE & MIN REHABILI [place]AB[place] [address] BRIDGE BRIDGE 1/> AREAS 4 [place] EA 15 CARE & CARE & MIN GAIT REHABILI REHABILI TRAINJ W/STAIR THERAPEUT 52480 BRIDGE BRIDGE IC PX 1/> 4 PO[place]INT AREAS CARE & CARE & EACH 15 REHABILI REHABILI MIN EXERCISES SELF-CARE 98730 BRIDGE BRIDGE /HOME 4 POINT POINT MGMT CARE & CARE & TRAINING REHABILI REHABILI EACH 15 [place] [address] BRIDGE BRIDGE SWALLOWIN 4 POINT POINT G CARE & CARE & DYSFUNCTI REHABILI REHABILI ON&/[place] [address] BRIDGE BRIDGE SWALLOWIN 4 POINT POINT G CARE & CARE & DYSFUNCTI REHABILI REHABILI ON&/ORAL FUNCJ FEEDING SELF-CARE 61603 BRIDGE BRIDGE /HOME 4 POINT POINT MGMT CARE & CARE & TRAINING REHABILI REHABILI EACH 15 MINUTES THERAPEUT 94032 BRIDGE BRIDGE IC PX 1/> 4 POINT POINT AREAS CARE & CARE & EACH 15 [place] [address] BRIDGE BRIDGE 1/> AREAS 4 [place] EA 15 CARE & CARE & MIN GAIT REHABILI REHABILI TRAINJ W/STAIR THERAPEUT 73829 BRIDGE BRIDGE ACTVITY 4 POINT POINT DIRECT PT CARE & CARE & CONTACT REHABILI REHABILI EACH 15 MIN THER RAD 45980 ONCOLOGY JOSH DIAZ-A 4 HEMATOLOG IDED Y CARE, FIELD IN SETTING COMPLEX THERAPEUT 32204 BRIDGE BRIDGE IC PX 1/> 4 POINT POINT AREAS CARE & CARE & EACH 15 REHABILI REHABILI MIN EXERCISES THERAPEUT 38833 ONCOLOGY MORENO PRA IC 4 HEMATOLOG RADIOLOGY Y CARE, [place] [address] GUIDANCE 4 [facility] RADIATION MED CTR MED CTR THERAPY WATER GAS OPERATOR ST W[place] [address] DEVICES 4 [facility] DESIGN & MED CTR MED CTR CONSTRUCT WATER GAS OPERATOR ST WATER GAS OPERATOR ST ION COMPLEX [place] [address] MEDICAL 4 [facility] RADJ MED CTR MED CTR DOSIM TX WATER GAS OPERATOR ST W[place] [address] BRIDGE BRIDGE SWALLOWIN 4 POINT POINT G CARE & CARE & DYSFUNCTI REHABILI REHABILI ON&/ORAL FUNCJ FEEDING THERAPEUT 69634 BRIDGE BRIDGE IC PX 1/> 4 PO[place] POINT AREAS CARE & CARE & EACH 15 REHABILI REHABILI MIN EXERCISES THERAPEUT 38107 BRIDGE BRIDGE ACTVITY 4 POINT POINT DIRECT PT CARE & CARE & CONTACT REHABILI REHABILI [place]ACH [address] [place] [address] BRIDGE BRIDGE 1/> AREAS 4 PO[place]INT EA 15 CARE & CARE & MIN GAIT REHABILI REHABILI TRAINJ W/[place] [address] BRIDGE CUMBERLAN 1/> AREAS 4 [place] EA 15 CARE & BEHAVIORA MIN GAIT REHABILI L TRAINJ W/STAIR THERAPEUT 66155 [place] IC PX 1/> 4 [place] AREAS CARE & CARE & EACH 15 [place] [address] [place] SWALLOWIN 4 [place] G CARE & CARE & DYSFUNCTI REHABILI REHABILI ON&/[place] [address] [place] SWALLOWIN 4 [place] G CARE & CARE & DYSFUNCTI REHABILI REHABILI ON&/ORAL FUNCJ FEEDING TX SPEECH 29691 [place] LANG 4 [place] VOICE CARE & CARE & COMMJ REHABILI REHABILI &/TRAFFIC OR SYSTEM DISPATCHER Y PROC IND THERAPEUT 99509 [place] IC PX 1/> 4 [place] AREAS CARE & CARE & EACH 15 [place] [address] [place] 1/> AREAS 4 [place] EA 15 CARE & CARE & MIN GAIT REHABILI REHABILI TRAINJ W/STAIR THERAPEUT 79553 BR[place] CUMBERLAN ACTVITY 4 [place] DIRECT PT CARE & BEHAVIORA CONTACT REHABILI L EACH 15 MIN EVAL 57077 [place] ORAL&PHAR 4 [place] YNGEAL CARE & CARE & SWLNG REHABILI REHABILI FUNCJ THERAPEUT 65506 [place] ACTVITY 4 [place] DIRECT PT CARE & CARE & CONTACT REHABILI REHABILI EACH [place] [address] [place] 1/> AREAS 4 [place] EA 15 CARE & CARE & MIN GAIT REHABILI REHABILI TRAINJ W/STAIR THERAPEUT 00639 [place] IC PX 1/> 4 [place] AREAS CARE & CARE & EACH 15 REHABILI REHABILI MIN EXERCISES PHYSICAL 97475 [place] THERAPY 4 [place] EVALUATIO CARE & CARE & N REHABILI REHABILI TX SPEECH 90246 [place] LANG 4 [place] VOICE CARE & CARE & COMMJ REHABILI REHABILI &/TRAFFIC [place] [address] [place] SWALLOWIN 4 [place] G CARE & CARE & DYSFUNCTI REHABILI REHABILI ON&/ORAL FUNCJ FEEDING SELF-CARE 34747 [place] /HOME 4 [place] MGMT CARE & CARE & TRAINING REHABILI REHABILI [place]ACH [place] [address] [place] 1/> AREAS 4 [place] EACH 15 CARE & CARE & MIN REHABILI REHABILI NEUROMUSC REEDUCA INITIAL 07113 JIBRINI JIBRINI NURSING 4 MHA MHA FACILITY CARE/DAY 45 MINUTES OCCUPATIO 82424 [place] NAL 4 [place] THERAPY CARE & CARE & EVALUATIO REHABILI REHABILI N THERAPEUT 31016 [place] ACTVITY 4 [place] DIRECT PT CARE & CARE & CONTACT REHABILI REHABILI EACH 15 MIN ANESTHESI 63393 INDEPENDE CLAYBON A 4 NT LORENZO INTRAORAL ANESTHESI WITH OLOGIST BIOPSY NOS SBSQ 15053 [facility] 4 NECK JAM CARE/DAY SURGERY 15 ASSOC MINUTES ALVEOLOPL 245 [facility] ASTY 4 [place]BAR[place] [address] RADIOLOGY AGOSTO BYR GUIDANCE 4 RADIATION ASSOCIATE [place] [address] ONCOLOGY MORENO RICA DEVICES 4 HEMATOLOG DESIGN & Y CARE, CONSTRUCT IN ION COMPLEX THER RAD 77334 ONCOLOGY JOSH STRAUSS SIMULAJ-A 4 HEMATOLOG IDED Y CARE, FIELD IN SETTING COMPLEX THERAPEUT 49131 ONCOLOGY [facility] IC 4 HEMATOLOG RADIOLOGY Y CARE, TX IN PLANNING COMPLEX SBSQ 85421 [facility] 4 [facility] CARE/DAY 25 PHYSICIAN MINUTES S SBSQ 71988 [place] [address] NECK THE CARE/DAY SURGERY 15 ASSOC MINUTES ANES 60768 INDEPENDE ROSANGELA UPPER GI 4 NT NORA ENDOSCOPY ANESTHESI PROXIMAL OLOGIST TO DUODENUM EGD 17451 [facility] PERCUTANE 4 [facility] OUS PLACEMENT PHYSICIAN S GASTROSTO MY TUBE PET 35497 RADIOLOGY YURIDIA IMAGING [address] ASSOCIATE ATTENUATI S OF NOTH ON SKULL BASE MID-THIGH INITIAL 59638 [facility] INPATIENT 4 [facility] CONSULT NEW/ESTAB PHYSICIAN PT 80 S MIN SBSQ 05499 [place] [address] NECK CARE/DAY SURGERY 15 ASSOC MINUTES SBSQ 52565 [facility] 4 NECK CARE/DAY SURGERY 15 ASSOC MINUTES SBSQ [address] CARE/DAY 25 PHYSICIAN MINUTES S SBSQ 26063 [place] [address] NECK AP CARE/DAY SURGERY 25 ASSOC MINUTES RADIOLOGI 79870 RADIOLOGY ART IVAN ASSOCIATE ON CHEST S OF NOTH [place] FRONTAL SBSQ [address] CARE/DAY 25 PHYSICIAN MINUTES S SBSQ 37398 ONCOLOGY [place] [address] HEMATOLOG LAW CARE/DAY Y CARE, 25 IN MINUTES SBSQ 19236 [facility] 4 BARBARA VINCENT CARE/DAY 35 PHYSICIAN MINUTES S SBSQ 40069 [facility] 4 BARBARA VINCNET CARE/DAY 35 PHYSICIAN MINUTES S INITIAL 18049 ONCOLOGY [facility] 4 HEMATOLOG LAW CARE/DAY Y [...] FT FT TRACHEOSC CHEMO MCLAIN OPY PATH 12283 [facility] CONSLTJ 4 BARBARA DOMINGA SURG 1ST MED CTR BLK [place]CT[place] 1 [place] [address] [address] VANG SURG 4 BARBARA DOMINGA PATHOLOGY MED CTR GROSS&AP ROSCOPIC EXAM INITIAL 62970 [facility] INPATIENT 4 BARBARA VINCENT CONSULT NEW/ESTAB PHYSICIAN PT 80 S MIN ECG [address] ANKUR ROUTINE 4 BARBARA GAR ECG W/LEAST PHYSICIAN 12 LDS S EKG I&R ONLY RADIOLOGI 05363 RADIOLOGY RALPH C 4 GAR EXAMINATI ASSOCIATE ON CHEST S OF NOTH [place] FRONTAL ANES 04155 [facility] NT N ANT THYRD ANESTHESI LARYNX OLOGIST TRACH & LYMPH NECK 1YR NONEMERGE A0130 LKLP CAC BENNETTS NCY 4 INC TRANSPORT TRANSPORT REGION 9 ATION CO ATION: Alexandru WILLAMS NONEMERGE A0130 LKLP CAC [facility] NCY 4 INC TRANSPORT TRANSPORT REGION 9 ATION CO ATION: Alexandru WILLAMS ECG [address] ROUTINE 4 BARBARA BARBARA ECG MED CTR MED CTR W/LEAST WATER GAS OPERATOR ST WATER GAS OPERATOR ST 12 LDS TRCG ONLY W/O I&R ECG [address]706 ST TIO MAR ROUTINE 4 BARBARA ECG MED CTR W/LEAST 12 LDS I&R ONLY CT THORAX 81272 RADIOLOGY KERRI 4 CHR W/CONTRAS ASSOCIATE T S OF NOTH MATERIAL CT SOFT 25642 RADIOLOGY DARYL TISSUE 4 MAR NECK ASSOCIATE W/CONTRAS S OF NOTH T MATERIAL NONEMERGE A0130 LKLP CAC [facility] NCY 4 INC TRANSPORT TRANSPORT REGION 9 ATION CO ATION: Alexandru Vanegas VAN ADLT D T4528 PERSONAL PERSONAL DISPBL 4 TOUCH TOUCH INCONT HOME CHCF CARE PROD OF OF UNDWEAR XTRA LG EA LARYNGOSC 97529 HEAD & KEMPINERS OPY 4 NECK JAM [...] PERSONAL DISPBL 4 TOUCH TOUCH INCONT HOME CHCF CARE PROD OF OF UNDWEAR XTRA LG EA HUMDIFIR E0562 [facility] HEATED 4 SERVICES SERVICES USED INC INC W/POS ARWAY PRESSURE DEVICE RESP ASST E0470 [facility] DEVC 4 SERVICES SERVICES BI-LEVL INC INC PRSS CAPABILIT Y W/O BACKU BASIC [address] METABOLIC 4 BARBARA BARBARA PANEL MED CTR MED CTR CALCIUM WATER GAS OPERATOR [place] [address] [facility] MED CTR NG WATER GAS OPERATOR ST WATER GAS OPERATOR ST HORMONE TSH LIPID [address] PANEL 4 [facility] MED CTR MED CTR WATER GAS OPERATOR ST WATER GAS OPERATOR ST HEPATIC [address] FUNCTION 4 [facility] PANEL MED CTR MED CTR WATER GAS OPERATOR ST WATER GAS OPERATOR ST HEMOGLOBI [address] N 4 [facility] GLYCOSYLA MED CTR MED CTR CASSIUS A1C WATER GAS OPERATOR ST WATER GAS OPERATOR ST RESP ASST E0470 [facility] DEVC 4 SERVICES SERVICES BI-LEVL INC INC PRSS CAPABILIT Y W/O BACKU HUMDIFIR E0562 [facility]ARE HEATED 4 SERVICES SERVICES USED INC INC W/POS ARWAY PRESSURE DEVICE ADLT SZD T4528 PERSONAL PERSONAL DISPBL 4 TOUCH TOUCH INCONT HOME CHCF CARE PROD OF OF UNDWEAR XTRA LG EA NONEMERGE A0130 LKLP CAC [facility] NCY 4 INC TRANSPORT TRANSPORT REGION 9 ATION CO ATION: Alexandru WILLAMS NONEMERGE A0130 LKLP CAC [facility] NCY 4 INC TRANSPORT TRANSPORT REGION 9 ATION CO ATION: Alexandru WILLAMS POLYSOM [address] 6/>YRS 4 BARBARA BARBARA SLEEP MED CTR MED CTR W/CPAP WATER GAS OPERATOR ST WATER GAS OPERATOR ST 4/> ADDL RHIANNA ATTND HEPATIC [address] FUNCTION 3 [facility] MED CTR MED CTR WATER GAS OPERATOR ST WATER GAS OPERATOR ST HEMOGLOBI [address] N 3 [facility] GLYCOSYLA MED CTR MED CTR CASSIUS A1C WATER GAS OPERATOR ST WATER GAS OPERATOR ST IIV3 [address] [place]OCK VACCINE 3 BARBARA AP SPLIT VIRUS 0.5 PHYSICIAN ML S DOSAGE IM USE ADLT SZD T4528 PERSONAL PERSONAL DISPBL 3 TOUCH TOUCH INCONT HOME CHCF CARE PROD OF OF UNDWEAR XTRA LG EA BASIC [address] METABOLIC 3 BARBARA BARBARA PANEL MED CTR MED CTR CALCIUM WATER GAS OPERATOR ST [place] [address] THYROID 3 BARBARA BARBARA STIMULATI MED CTR MED CTR NG WATER GAS OPERATOR ST WATER [place] [address] PROSTATE 3 [facility] SPECIFIC MED CTR MED CTR ANTIGEN WATER GAS OPERATOR ST WATER GAS OPERATOR ST TOTAL COLLECTIO [address] ROCK N VENOUS 3 [facility] BLOOD VENIPUNCT PHYSICIAN WHITNEY GUPTA SZD T4528 PERSONAL PERSONAL DISPBL 3 TOUCH TOUCH INCONT HOME CHCF CARE PROD OF OF UNDWEAR XTRA LG EA POLYSOM [address] 6/>YRS 3 BARBARA BARBARA SLEEP 4/> [facility] C[facility] RHIANNA ATTND NONEMERGE A0130 L[facility] NCY 3 INC TRANSPORT TRANSPORT REGION 9 ATION CO ATION: Alexandru WILLAMS DETERMINA [address], REFRACTIV OD, PSC E STATE OPHTH [address], XM&EVAL OD, PSC COMPRE NEW PT 1/> VST NONEMERGE A0130 LKLP CAC [facility] NCY 3 INC TRANSPORT TRANSPORT REGION 9 ATION CO ATION: Alexandru WILLAMS ADLT SZD T4528 PERSONAL PERSONAL DISPBL 3 TOUCH TOUCH INCONT HOME CHCF CARE PROD OF OF UNDWEAR XTRA LG EA NONEMERGE A0130 LKLP CAC [facility] NCY 3 INC TRANSPORT TRANSPORT REGION 9 ATION CO ATION: Alexandru WILLAMS ECG [address] ST HULLER ROUTINE 3 BARBARA RAL ECG MED CTR W/LEAST 12 LDS I&[place] [address] RADIOLOGY [place] HEAD/BRAI 3 ISAIAH N W/O ASSOCIATE CONTRAST S OF NOT MATERIAL GROUND A0425 SHAI SHAI MILEAGE 3 CO CO PER AMBULANCE AMBULANCE STATUTE TAXIN TAXIN MILE AMB A0427 SHAI SHAI SERVICE 3 CO CO ALS AMBULANCE AMBULANCE EMERGENCY TAXIN TAXIN TRANSPORT LEVEL 1 ADLT SZD T4528 PERSONAL PERSONAL DISPBL 3 TOUCH TOUCH INCONT HOME CHCF CARE PROD OF OF JAIDA SHOOK LG EA IIV3 VACC [address] 2 BARBARA AP PRESERVAT SURENDRA FREE PHYSICIAN 0.5 ML S DOSAGE IM USE REMOVAL 20[address] [facility] SKN TAGS 2 BARBARA AP HAT BRIM CURLER FIBRQ TAGS ANY PHYSICIAN AREA S UPW/15 REPR/SRVC K0739 THE THE DME NOT 2 SCOOTER SCOOTER O2 RQR STORE STORE TECH CMPNT [place] [address] [place] [address] THYROID 2 BARBARA BARBARA STIMULATI NG MEDICALCE MEDICALCE [place] [address] PROSTATE 2 BARBARA BARBARA SPECIFIC ANTIGEN MEDICALCE MEDICALCE TOTAL NTER NTER AMB A0427 SHAI SHAI SERVICE 2 CO CO ALS AMBULANCE AMBULANCE EMERGENCY TAXIN TAXIN TRANSPORT LEVEL 1 GROUND A0425 SHAI SHAI MILEAGE 2 CO CO PER AMBULANCE AMBULANCE STATUTE TAXIN TAXIN MILE HEPATIC [address] FUNCTION 2 BARBARA BARBARA PANEL MEDICALCE MEDICALCE NTER NTER LIPID [address] PANEL 2 BARBARA BARBARA MEDICALCE MEDICALCE NTER NTER HEMOGLOBI [address] N 2 BARBARA BARBARA GLYCOSYLA CASSIUS A1C MEDICALCE MEDICALCE NTER NTER BASIC [address] METABOLIC 2 BARBARA BARBARA PANEL CALCIUM MEDICALCE MEDICALCE TOTAL NTER NTER CREATININ [address] E OTHER 2 BARBARA BARBARA SOURCE [place] [address] FREE 2 BARBARA BARBARA THYROXINE [place] [address] THYROID 2 BARBARA BARBARA STIMULATI NG MEDICALCE MEDICALCE HORMONE NTER NTER TSH NONEMERGE A0100 [facility] 2 COMMUNITY TRANSPORT TRANSPORT ACTION ATION CO ATION; L TAXI ALBUMIN [address] URINE 2 BARBARARED JIMENEZ MICROALBU MIN MEDICALCE MEDICALCE QUANTIATI NTER NTER VE COLLECTIO 16052 ST ROCK N VENOUS 2 BARBARA AP BLOOD VENIPUNCT PHYSICIAN URE S PWR K0825 THE THE GRP 2 2 SCOOTER SCOOTER HEVY DUTY STORE STORE CAPT CHAIR PT 301-450 LBS REPR/SRVC [id number] THE THE DME NOT 2 SCOOTER SCOOTER O2 RQR STORE STORE TECH CMPNT PER 15 MINS PWR E2361 THE THE ACSS 22NF 2 SCOOTER SCOOTER SEALED STORE 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 [place] NONEMERGE A0100 [facility] 2 COMMUNITY TRANSPORT TRANSPORT ACTION ATION CO ATION; L TAXI BLOOD [address] COUNT 1 BARBARA JIMENEZ COMPLETE AUTO&AUTO MEDICALCE MEDICALCE DIFRNTL NTER NTER WBC COMPREHEN [address] SIVE 1 BARBARA BARBARA METABOLIC PANEL MEDICALCE MEDICALCE NTER NTER ECG [address] ST MOHINI ROUTINE 1 BARBARA DEL ECG MED CTR W/LEAST 12 LDS I&R ONLY GLUCOSE [address] BLOOD 1 BARBARA BARBARA REAGENT STRIP MEDICALCE MEDICALCE NTER NTER ECG [address] ROUTINE 1 BARBARA BARBARA ECG W/LEAST MEDICALCE MEDICALCE 12 LDS NTER NTER TRCG ONLY W/O I&R GROUND A0425 SHAI SHAI MILEAGE 1 CO CO PER AMBULANCE AMBULANCE STATUTE TAXIN TAXIN MILE AMB A0427 SHAI SHAI SERVICE 1 CO CO ALS AMBULANCE AMBULANCE EMERGENCY TAXIN TAXIN TRANSPORT LEVEL [address] N VENOUS 1 [facility] BLOOD VENIPUNCT MEDICALCE MEDICALCE URE NTER NTER LIPID [address] PANEL 1 BARBARA BARBARA MEDICALCE MEDICALCE NTER NTER HEPATIC [address] FUNCTION 1 BARBARA BARBARA PANEL MEDICALCE MEDICALCE NTER NTER HEMOGLOBI [address] N 1 [facility] GLYCOSYLA CASSIUS A1C [place] [address] BLOOD/URI 1 [facility] C ACID MEDICALCE MEDICALCE NTER NTER BASIC [address] METABOLIC 1 [facility] PANEL CALCIUM MEDICALCE MEDICALCE TOTAL NTER NTER THERAPEUT [address] IC PX 1/> 1 [facility] EACH 15 MIN EXERCISES NONEMERGE A0100 [facility] 1 COMMUNITY TRANSPORT TRANSPORT ACTION ATION CO ATION; L TAXI THERAPEUT [address] IC PX 1/> 1 [facility] EACH 15 MIN EXERCISES NONEMERGE A0100 LKLP [facility] NCY 1 COMMUNITY TRANSPORT TRANSPORT ACTION ATION CO ATION; L TAXI NONEMERGE A0100 LKLP [facility] NCY 1 COMMUNITY TRANSPORT TRANSPORT ACTION ATION CO ATION; L TAXI NONEMERGE A0100 LK [facility] NCY 1 COMMUNITY TRANSPORT TRANSPORT ACTION ATION CO ATION; L TAXI THERAPEUT [address] IC PX 1/> 1 [facility] EACH 15 MIN EXERCISES THERAPEUT [address] IC PX 1/> 0 [facility] EACH 15 MIN EXERCISES NONEMERG A0120 LKLP LKLP TRNSPRT: 0 [facility] ACTION N [facility]OT SYS THERAPEUT [address] IC PX 1/> 0 [facility] EACH 15 MIN EXERCISES NONEMERG A0120 LKLP LKLP TRNSPRT: 0 [facility] MINI-[facility] ACTION N [facility]OT SYS THERAPEUT [address] IC PX 1/> 0 [facility] EACH 15 MIN EXERCISES PHYSICAL [address] [facility]APY [facility] N NONEMERG A0120 LKLP LKLP TRNSPRT: 0 [facility] ACTION N [facility]/OT SYS NONEMERG A0120 LKLP LKLP TRNSPRT: 0 [facility] ACTION N [facility]/OT SYS HEPATIC [address] FUNCTION 0 BARBARA BARBARA PANEL MEDICALCE MEDICALCE NTER NTER LIPID [address] PANEL 0 BARBARA BARBARA MEDICALCE MEDICALCE NTER NTER NONEMERG A0120 LKLP LKLP TRNSPRT: 0 [facility] ACTION N [facility]/OT SYS IIV3 [address] VACCINE 0 BARBARA BARBARA SPLIT VIRUS 0.5 PHYSICIAN PHYSICIAN ML S S DOSAGE IM USE BASIC [address] METABOLIC 0 BARBARA BARBARA PANEL CALCIUM MEDICALCE [place] [address] BLOOD/URI 0 BARBARA BARBARA C ACID MEDICALCE MEDICALCE NTER NTER BASIC [address] METABOLIC 0 BARBARA BARBARA PANEL CALCIUM MEDICALCE MEDICALCE TOTAL NTER NTER URNLS DIP [address] 0 BARBARA BARBARA STICK/TAB LET RGNT MEDICALCE MEDICALCE NON-AUTO NTER NTER W/O MICRSCP GROUND A0425 SHAI SHAI MILEAGE 0 CO CO PER AMBULANCE AMBULANCE STATUTE TAXIN TAXIN MILE BLOOD [address] COUNT 0 ABRBARA BARBARA COMPLETE AUTO&AUTO MEDICALCE MEDICALCE DIFRNTL NTER NTER WBC AMB A0427 SHAI SHAI SERVICE 0 CO CO ALS AMBULANCE AMBULANCE EMERGENCY TAXIN TAXIN TRANSP[place] [address] [place] [address] MAGNESIUM 0 BARBARA BARBARA MEDICALCE MEDICALCE NTER NTER COLLECTIO [address] N VENOUS 0 [facility] BLOOD VENIPUNCT MEDICALCE MEDICALCE URE [facility] [address] ST [place] DISCHARGE 0 BARBARA MIN DAY MANAGEMEN PHYSICIAN T 30 S MIN/< SBSQ 56959 [facility] 0 S CARE/DAY HEALTHCAR 25 E IN MINUTES ELECTROEN 93918 [facility] CEPHALOGR 0 S AM W/REC HEALTHCAR AWAKE&[place] [address] RADIOLOGY YURIDIA HEAD/BRAI 0 SHARLA N W/O ASSOCIATE CONTRAST S PSC MATERIAL MRI BRAIN 97923 RADIOLOGY ARLINE BRAIN 0 ATT STEM W/O ASSOCIATE W/CONTRAS S PSC T MATERIAL RADIOLOGI 45141 RADIOLOGY YURIDIA C 0 SHARLA EXAMINATI ASSOCIATE ON CHEST S PSC [place] FRONTAL ECG [address] ST TIO MAR ROUTINE 0 BARBARA ECG MED CTR W/LEAST 12 LDS I&R ONLY GROUND A0425 SHAI SHAI MILEAGE 0 CO CO PER AMBULANCE AMBULANCE STATUTE TAXIN TAXIN MILE AMBULANCE A0429 SHAI SHAI SERVICE 0 CO CO BLS AMBULANCE AMBULANCE EMERGENCY TAXIN TAXIN TRANSPORT INITIAL 42879 [facility] 0 BARBARA AP CARE/DAY 50 PHYSICIAN MINUTES S ECG [address] TIO MAR ROUTINE 0 BARBARA ECG MED CTR W/LEAST 12 LDS I&R ONLY CT SOFT 42642 RADIOLOGY [place] TISSUE 0 NORA NECK ASSOCIATE W/CONTRAS S PSC T MATERIAL [facility] 03515 [facility] DISCHARGE 0 BARBARA AP DAY MANAGEMEN PHYSICIAN T 30 S MIN/< INITIAL 27830 [facility] 0 BARBARA AP CARE/DAY 70 PHYSICIAN MINUTES S MRI BRAIN 69095 RADIOLOGY SUMAYA BRAIN 0 III ALICIA STEM W/O ASSOCIATE W/CONTRAS S PSC T MATERIAL ELECTROEN 92138 FIOR GALLARDO TY CEPHALOGR 0 S AM W/REC HEALTHCAR AWAKE&ASL E IN EEP ECG 11034 [facility] MAR ROUTINE 0 BARBARA ECG MED CTR W/LEAST 12 LDS I&R ONLY MRA NECK 95636 RADIOLOGY RADIOLOGY W/O 0 &W/CONTRA ASSOCIATE ASSOCIATE ST S PSC S PSC MATERIAL GROUND A0425 SHAI SHAI MILEAGE 0 CO CO PER AMBULANCE AMBULANCE STATUTE SERVI SERVI MILE ECG 40306 [facility] MAR ROUTINE 0 BARBARA ECG MED CTR W/LEAST 12 LDS I&R ONLY RADIOLOGI 47303 RADIOLOGY RALPH C 0 JAM EXAMINATI ASSOCIATE ON CHEST S PSC [place] FRONTAL AMB A0422 SHAI HSAI OXYGEN&O2 0 CO CO SUPPLIES AMBULANCE AMBULANCE LIFE SERVI SERVI SUSTAININ G SITUATION AMB A0427 SHAI SHAI SERVICE 0 CO CO ALS AMBULANCE AMBULANCE EMERGENCY SERVI SERVI TRANSPORT LEVEL 1 CT LOWER 94602 RADIOLOGY BRANDSER EXTREMITY 0 GUY W/O ASSOCIATE CONTRAST S PSC MATERIAL 3D 90468 RADIOLOGY BRANDSER RENDERING 0 GUY W/INTERP ASSOCIATE & S PSC POSTPROCE SS SUPERVISI ON RADIOLOGI 40730 RADIOLOGY DOERGER C EXAM 0 KIR KNEE ASSOCIATE COMPLETE S PSC 4/MORE VIEWS RADEX 94645 RADIOLOGY ROEBKER SHOULDER 0 JAM COMPLETE ASSOCIATE MINIMUM 2 S PSC VIEWS Encounters Encounter Start End Date Code Location Performer Type Date HOME [place] [address] 7 [facility] 7 [facility]A INPATIENT HOME CARE OFFICE 56254 [facility] 7 7 BARBARA T VISIT 15 PHYSICIAN MINUTES S HOME [facility] 7 7 BARBARA INPATIENT HOME [facility]ARE [facility] - 7 7 [facility] OUTPATIEN T [facility] 99774 7 7 BARBARA DEPARTMEN T VISIT HEALTHCAR HIGH/URGE E EDGE NT SEVERITY OFFICE 41875 [facility] 7 7 BARBARA T VISIT 25 PHYSICIAN MINUTES [facility] [address] [facility] [place] OFFICE 40794 [facility] 7 7 BARBARA T VISIT 25 PHYSICIAN MINUTES S OFFICE 49257 [facility] 7 7 BARBARA T VISIT 15 PHYSICIAN MINUTES S OFFICE 14881 [facility] 7 7 BARBARA T VISIT 5 MINUTES [facility] 91238 7 7 BARBARA DEPARTMEN T VISIT HEALTHCAR MODERATE E EDGE SEVERITY OFFICE 68958 [facility] 7 7 BARBARA L T VISIT 25 PHYSICIAN MINUTES S EMERGENCY 44270 [facility] 7 7 EMERGENCY VISIT HIGH PHYSICIAN SEVERITY& S THREAT [facility] ST - 7 7 BARBARA OUTPATIEN T HEALTHCAR E EDGE EMERGENCY 94037 [facility] 7 7 EMERGENCY DEPARTMEN T VISIT PHYSICIAN HIGH/URGE S NT SEVERITY [facility] ST - 7 7 BARBARA OUTPATIEN T HEALTHCAR E EDGE OFFICE 13201 [facility] 7 7 BARBARA T VISIT [address] - 7 7 BARBARA OUTPATIEN T HEALTHCAR E EDGE OFFICE 55128 [facility] 7 7 BARBARA T VISIT 25 PHYSICIAN MINUTES S OFFICE 74952 [facility] 7 7 BARBARA T VISIT MED CTR [address] - 7 7 BARBARA OUTPATIEN T [facility] - 7 7 BARBARA OUTPATIEN T HEALTHCAR E EDGE OFFICE 31824 [facility] 7 7 BARBARA T VISIT 25 PHYSICIAN MINUTES S OFFICE 58009 [facility] 6 6 [place] TRO T VISIT 15 PHYSICIAN MINUTES [facility] ST - 6 6 [facility] [facility] T [facility] - 6 6 [place] [facility] EMERGENCY 89638 MICHELLE BENNETT DEPT 6 6 PHYSICIAN AP VISIT S, [facility] HIGH SEVERITY& THREAT FUNJ EMERGENCY 70719 [place] 6 6 [facility] DEPARTMEN INC T VISIT MODERATE SEVERITY [facility] [place] - 6 6 [facility] OUTPATIEN INC T OFFICE 13469 ONCOLOGY [facility] OUTPATIEN 6 6 HEMATOLOG T VISIT Y CARE, 15 IN MINUTES [facility] ST - 6 6 [facility]EN [facility] T [facility] - 6 6 [place] [facility] OFF[facility] 64093 [facility] 6 6 NECK JAM T VISIT SURGERY 15 ASSOC MINUTES OFFICE 40603 [facility] 6 6 [place] TRO T VISIT 15 PHYSICIAN MINUTES [facility] ST - 6 6 [facility] OFFICE [address] [facility] OUTPATI[facility] 6 6 [place] TRO T VISIT 25 PHYSICIAN MINUTES S OFFICE [address]3979 ST OUTPATIEN 6 6 [place] T VISIT 5 MED CTR MINUTES [facility] ST - 6 6 [facility]PATIEN [facility] OFF[facility] 99604 [facility] 6 6 NECK JAM T VISIT SURGERY 15 ASSOC MINUTES OFFICE [address] [facility] OUTPATIEN 6 6 [place] TRO T VISIT 25 PHYSICIAN MINUTES [facility] - 6 6 [place] OUTPATIEN MED [facility] T [facility] - 6 6 [facility] OUTPATIEN [facility] ST - 6 6 [facility]PATIEN [facility] OFFICE 21396 [facility] 6 6 NECK JAM T VISIT SURGERY 25 ASSOC MINUTES OFFICE 08719 [facility] OUTPATIEN 6 6 [place] T VISIT 25 PHYSICIAN MINUTES [facility] ST - 6 6 [facility]EN [facility] OFFICE 37497 ST OUTPATIEN 6 6 [place] T VISIT 5 MED CTR MINUTES [facility] OFFICE 46359 ONCOLOGY [facility] PRA OUTPATIEN 6 6 HEMATOLOG T VISIT Y CARE, 25 IN MINUTES OFFICE 54709 ONCOLOGY CALLI OUTPATIEN 6 6 HEMATOLOG LAW T VISIT Y CARE, 15 IN MINUTES [facility], 5 5 TOUCH OTHER HOME CARE OF [facility], 5 5 TOUCH INPATIENT HOME CARE OF OFFICE 32371 [facility] OUT[facility] 5 5 NECK JAM T VISIT SURGERY 15 ASSOC MINUTES [facility], 5 5 TOUCH OTHER HOME CARE OF OFFICE 57162 [facility] OUTPATI[facility] 5 5 [facility] DENIA T VISIT 15 PHYSICIAN MIN[address]ES S [facility] - 5 5 [facility] OUTPATIEN [facility] CTR T [facility] [employer] [facility], 5 5 TOUCH OTHER HOME CARE OF OFFICE 58810 ST OUTPATIEN 5 5 [facility] T VISIT 5 MED CTR MINUTES [facility] OFFICE 03487 ONCOLOGY [facility] PRA OUTPATIEN 5 5 HEMATOLOG T VISIT Y CARE, [address] - 5 5 [facility] OUTPATIEN MED CTR T [facility], 5 5 TOUCH OTHER HOME CARE OF OFFICE [address]1099 [facility] OUTPATIEN 5 5 [place] DENIA T VISIT 25 PHYSICIAN MINUTES S OFFICE 39388 ONCOLOGY CALLI OUTPATIEN 5 5 HEMATOLOG LAW T VISIT Y CARE, 15 IN MINUTES [facility], 5 5 TOUCH OTHER HOME CARE OF [facility], 5 5 TOUCH OUTPATIEN HOME CARE T OF HOME PERSONAL [facility]ALTH, 5 5 TOUCH OTHER HOME CARE OF OFFICE 15346 [facility] 5 5 NECK JAM T VISIT SURGERY 15 ASSOC MINUTES [facility], 5 5 TOUCH OUTPATIEN HOME CARE T OF HOSPITAL ST - 5 5 [facility] OUTPATIEN [facility] T [facility] [facility], 5 5 TOUCH OTHER HOME CARE OF OFFICE [address] [facility] OUTPATIEN 5 5 BARBARA DENIA T VISIT 15 PHYSICIAN MINUTES S HOME PERSONAL HEALTH, 5 5 TOUCH OUTPATIEN HOME CARE T OF OFFICE 29477 ONCOLOGY MORENO PRA OUTPATIEN 5 5 HEMATOLOG T VISIT Y CARE, 25 IN MINUTES OFFICE 48820 ONCOLOGY LUCINDA OUTPATIEN 5 5 HEMATOLOG N ISAIAH T VISIT Y CARE, 15 IN MINUTES HOME PERSONAL HEALTH, 5 5 TOUCH OTHER HOME CARE OF OFFICE 02297 [facility] 5 5 BARBARA DENIA T VISIT 25 PHYSIC[address] S [facility] - 5 5 [facility] OUTPATIEN MED CTR T WATER GAS OPERATOR ST HOME PERSONAL HEALTH, 5 5 TOUCH OUTPATIEN HOME CARE T OF OFFICE 95364 ONCOLOGY MORENO PRA OUTPATIEN 5 5 HEMATOLOG T VISIT Y CARE, 25 IN MINUTES HOME PERSONAL HEALTH, 5 5 TOUCH OUTPATIEN HOME CARE T OF HOME PERSONAL HEALTH, 5 5 TOUCH OTHER HOME CARE OF HOME PERSONAL HEALTH, 5 5 TOUCH OTHER HOME CARE OF HOME PERSONAL HEALTH, 5 5 TOUCH OUTPATIEN HOME CARE T OF OFFICE 49238 ONCOLOGY CALLI OUTPATIEN 5 5 HEMATOLOG LAW T VISIT Y CARE, 15 IN MINUTES OFFICE 77599 [facility] OUTPATIEN 5 5 BARBARA DENIA T VISIT [address] [facility] [address] - 5 5 [facility] OUTPATIEN [facility] T [facility] ST OFFICE 61825 INFECTIOU DEVARAJAN OUTPATIEN 5 5 S DISEASE VID T VISIT [address] [facility] - 4 4 [facility] OUTPATIEN MED CTR T WATER GAS OPERATOR OFFICE 64073 ST OUTPATIEN 4 4 BARBARA T VISIT 5 MED CTR MINUTES [facility] [place] - 4 4 [facility] OUTPATIEN INC T OFFICE 10905 INFECTIOU DEVARAJAN OUTPATIEN 4 4 S DISEASE VID T VISIT [address] [facility] - 4 4 BAR[facility] OUTPATIEN MED CTR T [facility] HOME PERSONAL HEALTH, 4 4 TOUCH OUTPATIEN HOME CARE T OF [facility] [place] - 4 4 [facility]IEN INC [facility] ST - 4 4 BARBARA OUTPATIEN MED CTR T [facility] PERSONAL HEALTH, 4 4 TOUCH OTHER HOME CARE OF HOME PERSONAL HEALTH, 4 4 TOUCH OUTPATIEN HOME CARE T OF HOSPITAL ST - 4 4 [facility] OUTPATIEN MED CTR T [facility] EMERGENCY 51095 [facility] 4 4 BARBARA DEPARTMEN MED CTR T VISIT MODERATE SEVERITY HOME PERSONAL HEALTH, 4 4 TOUCH OUTPATIEN HOME CARE T OF HOSPITAL ST - 4 4 [facility] OUTPATIEN MED CTR T [facility] HOME PERSONAL HEALTH, 4 4 TOUCH OUTPATIEN HOME CARE T OF HOME PERSONAL HEALTH, 4 4 TOUCH OUTPATIEN HOME CARE T OF OFFICE 42070 [facility] OUTPATIEN 4 4 BARBARA DENIA T VISIT 25 PHYSICIAN MINUTES S OFFICE 04118 INFECTIOU DEVARAJAN OUTPATIEN 4 4 S DISEASE VID T VISIT 40 CONSULTAN MINUTES OFFICE 41272 [facility] 4 4 NECK JAM T VISIT SURGERY 10 ASSOC MINUTES OFFICE 66990 [facility] 4 4 NECK JAM T VISIT SURGERY 15 ASSOC [address] [facility] - 4 4 [facility] OUTPATIEN MED CTR T [facility] OFFICE 47526 ONCOLOGY CALLI OUTPATIEN 4 4 HEMATOLOG LAW T VISIT Y CARE, [address] - 4 4 [facility] OUTPATIEN MED CTR T WATER GAS OPERATOR [facility] ST - 4 4 BARBARA INPATIENT MED CTR WATER GAS OPERATOR OFFICE 00501 [facility] CONSULTAT 4 4 BARBARA ION NEW/ESTAB PHYSICIAN PATIENT S 60 MIN EMERGENCY 57543 [facility] DEPT 4 4 BARBARA MICAH VISIT MED CTR HIGH SEVERITY& THREAT FUNCJ OFFICE 30418 ONCOLOGY POLI CHR OUTPATIEN 4 4 HEMATOLOG T VISIT Y CARE, [address] - 4 4 [facility]A OUTPATIEN MED CTR T [facility] OFFICE 34881 ONCOLOGY POLI CHR OUTPATIEN 4 4 HEMATOLOG T VISIT Y CARE, 25 IN MINUTES OFFICE 58075 ONCOLOGY CALLI OUTPATIEN 4 4 HEMATOLOG LAW T VISIT Y CARE, [address] - 4 4 BARBARA OUTPATIEN MED CTR T [facility] 4 4 POINT - OTHER CARE & [facility] - 4 4 [facility]BARA OUTPATIEN MED CTR T [facility] OFFICE 03097 ST OUTPATIEN 4 4 BARBARA T VISIT 5 MED CTR MINUTES [facility] 4 4 POINT - OTHER CARE [facility] ST - 4 4 BARBARA INPATIENT [facility] PERSONAL HEALTH, 4 4 TOUCH OTHER HOME CARE OF HOSPITAL ST - 4 4 [facility] OUTPATIEN MED CTR T WATER GAS OPERATOR [facility] ST - 4 4 BARBARA OUTPATIEN FT T CHEMO HOME PERSONAL HEALTH, 4 4 TOUCH OUTPATIEN HOME CARE T OF OFFICE 49126 [facility] 4 4 NECK JAM ION SURGERY NEW/ESTAB ASSOC PATIENT 80 MIN OFFICE 21945 LAL[facility] OUTPATIEN 4 4 BARBARA DENIA T VISIT 25 PHYSICIAN MINUTES S [facility] [place] - 4 4 [facility] OUTPATIEN INC T [place]ER[place]ENCY 19262 [place] 4 4 [facility] DEPARTMEN INC T VISIT LOW/MODER SEVERITY EMERGENCY 13327 [facility] 4 4 CHERIE DEPARTMEN EMERGENCY T VISIT PHYS MODERATE SEVERITY HOME PERSONAL HEALTH, 4 4 TOUCH OUTPATIEN HOME CARE T OF HOME PERSONAL HEALTH, 4 4 TOUCH OTHER HOME CARE OF HOME PERSONAL HEALTH, 4 4 TOUCH OTHER HOME CARE OF HOSPITAL ST - 4 4 BARBARA OUTPATIEN MED CTR T WATER GAS OPERATOR PERIODIC [address] [facility] 4 4 BARBARA AP E MED EST PATIENT PHYSICIAN 40-64YRS S HOME PERSONAL HEALTH, 4 4 TOUCH OTHER HOME CARE OF HOME PERSONAL HEALTH, 4 4 TOUCH OUTPATIEN HOME CARE T OF HOME PERSONAL HEALTH, 4 4 TOUCH OTHER HOME CARE OF HOSPITAL ST - 4 4 BARBARA OUTPATIEN MED CTR T WATER GAS OPERATOR HOME PERSONAL HEALTH, 4 4 TOUCH OTHER HOME CARE OF HOME PERSONAL HEALTH, 3 3 TOUCH OTHER HOME CARE OF OFFICE 34735 ST OUTPATIEN 3 3 BARBARA T VISIT 5 MED CTR MINUTES W[facility]AS OPERATOR [facility] ST - 3 3 BARBARA OUTPATIEN MED CTR T WATER GAS OPERATOR OFFICE [address] [facility] PAT OUTPATIEN 3 3 BARBARA T VISIT MED CTR [address] - 3 3 BARBARA OUTPATIEN MED CTR T WATER GAS OPERATOR HOME PERSONAL HEALTH, 3 3 TOUCH OUTPATIEN HOME CARE T OF HOME PERSONAL HEALTH, 3 3 TOUCH OTHER HOME CARE OF HOME PERSONAL HEALTH, 3 3 TOUCH OUTPATIEN HOME CARE T OF HOSPITAL ST - 3 3 BARBARA OUTPATIEN [facility] HOME PERSONAL HEALTH, 3 3 TOUCH OTHER HOME CARE OF OFFICE [address] [facility] 3 3 BARBARA ION MED CTR NEW/ESTAB PATIENT 60 MIN OFFICE 15469 [facility] TY CONSULTAT 3 3 BARBARA ION NEW/ESTAB PHYSICIAN PATIENT S 60 MIN HOME PERSONAL HEALTH, 3 3 TOUCH OTHER HOME CARE OF HOME PERSONAL HEALTH, 3 3 TOUCH OUTPATIEN HOME CARE T OF HOME PERSONAL HEALTH, 3 3 TOUCH OTHER HOME CARE OF OFFICE 04495 [facility] [place] OUT[facility] 3 3 BARBARA AP T VISIT 25 PHYSICIAN MINUTES S HOME PERSONAL HEALTH, 3 3 TOUCH OTHER HOME CARE OF EMERGENCY 40688 ST JACY DEPT 3 3 BARBARA CANDE VISIT MED CTR HIGH SEVERITY& THREAT FUNCJ EMERGENCY 25431 ST JACY 3 3 BARBARA CANDE DEPARTMEN [...] OF HOSPITAL ST - 2 2 [facility] Jurado MEDICALDIVYA NT OFFICE 69492 [facility] 2 2 BARBARA DE SOUZA T VISIT [...] OF HOSPITAL ST - [address] [facility] MEDICALCE NTER HOME PERSONAL HEALTH, 2 2 TOUCH OTHER HOME CARE [facility] 2 2 TOUCH OTHER HOME CARE OF HOME PERSONAL HEALTH, 2 2 TOUCH OTHER HOME CARE OF HOME PERSONAL HEALTH, 1 1 TOUCH OTHER HOME CARE OF OFFICE 00750 [facility] 1 2 BARBARA AP T VISIT 15 PHYSICIAN MINUTES S OFFICE 85109 [facility] 1 2 BARBARA AP T VISIT 25 PHYSICIAN MINUTES S EMERGENCY [address]49[address] ST 1 1 BARBARA DEPARTMEN T VISIT MEDICALCE MODERATE NTER SEVERITY HOSPITAL ST - 1 1 BARBARA OUTPATIEN T MEDICALCE NTER EMERGENCY 42970 [facility] 1 1 BAR[facility]AJOSAFAT [facility] T VISIT HIGH/URGE NT SEVERITY HOME PERSONAL HEALTH, 1 1 TOUCH OTHER HOME CARE OF HOSPITAL ST - 1 1 [facility] 92796 [facility] 1 1 BARBARA AP T VISIT 25 [...] CARE OF HOSPITAL ST - 1 1 [facility], 1 1 TOUCH OTHER HOME CARE OF OFFICE 22147 [facility] BARBARA MIN T VISIT 25 PHYSICIAN [address] S [facility] - 1 1 [facility] T HOME PERSONAL HEALTH, 1 1 TOUCH OTHER HOME CARE OF OFFICE 95952 [facility] 1 BARBARA MIN T VISIT 25 PHYSICIAN MINUTES [facility] ST - 1 1 [facility] T HOME PERSONAL HEALTH, 1 1 TOUCH OTHER HOME CARE [facility] 17431 FIOR GALLARDO OUTPATI 0 0 S T VISIT [facility] 25 E IN MINUTES HOME PERSONAL HEALTH, 0 0 TOUCH OTHER HOME CARE OF OFFICE 60015 [facility] 0 0 BARBARA MIN T VISIT 25 PHYSICIAN MINUTES [facility] ST - 0 0 BARBARA OUTPATIEN T MEDICALCE NTER HOME PERSONAL HEALTH, 0 0 TOUCH OTHER HOME CARE OF HOME PERSONAL HEALTH, 0 0 TOUCH OTHER HOME CARE OF HOSPITAL ST - 0 0 BARBARA OUTPATIEN T MEDICALCE NTER EMERGENCY 12914 JACY 0 0 BARBARA CANDE DEPARTMEN MED CTR T VISIT HIGH/URGE NT SEVERITY HOME PERSONAL HEALTH, 0 0 TOUCH OTHER HOME CARE OF EMERGENCY 35369 [facility] DEPT 0 0 BARBARA AP VISIT MED CTR HIGH SE[facility]ITY& [facility] BARBARA INPATIENT MEDICALCE NTER OFFICE 38720 [facility] 0 0 NECK ION SURGERY NEW/ESTAB ASSOC PATIENT 40 MIN OFFICE 56812 [facility] 0 0 BARBARA MIN T VISIT 25 PHYSICIAN MINUTES S EMERGENCY 39823 [facility] DEPT 0 0 BARBARA PAT VISIT MED CTR HIGH SEVERITY& THREAT [facility] ST - 0 0 [facility] ST - 0 0 [facility]
--- OUTSIDE RECORDS SUMMARY | 2017-02-02 04:53 | External Medical Summary Rpt ---
Author Author KITTY Marin, [employer] Organization [employer] Address Unknown Phone Unavailable
--- OUTSIDE RECORDS SUMMARY | 2017-02-02 04:53 | External Medical Summary Rpt | CCD ---
Author Author , KITTY TANG Address Unknown Phone [email or web address] Relationship Address Phone FÉLIX, Next Of Kin Unknown Unavailable [facility] Immunization Name Date Rout CVX Reac Dose Comm Prov Is Faci e tion ent ider Refu lity Give sed n Infl 10-0 0.5 Hist D041 No D041 uenz 5-20 mL oric 01 01 a 17 al Quad Info rmat W/Pr ion es - Sour ce Unsp ecif ied Infl 09-2 Intr 150 999 Hist D041 No D041 uenz 7-20 amus oric 01 01 a 16 cula al Quad r Info Inj rmat ion - Sour ce Unsp ecif ied Infl 10-0 Intr 88 999 Hist ID No ID uenz 4-20 amus oric a, 14 cula al UF r Info rmat ion - Sour ce Unsp ecif ied PPV2 07-0 Intr 33 999 Hist ERIK No ERIK 3 2-20 amus oric TTHO TTHO 14 cula al MAS MAS r Info rmat ion - Sour ce Unsp ecif ied
--- OUTSIDE RECORDS SUMMARY | 2017-02-02 04:53 | External Medical Summary Rpt | CCD ---
Author Author , KITTY TANG Address Unknown Phone [email or web address] Support Name Relationship Address Phone FÉLIX, Next [...] ied Infl 10-0 Intr 88 999 Hist OK No OK uenz 4-20 amus oric a, 14 cula al UF r Info rmat ion - Sour ce Unsp ecif ied PPV2 07-0 Intr 33 999 Hist ERIK No ERIK 3 2-20 amus oric TTHO TTHO 14 cula al MAS MAS r Info rmat ion - Sour ce Unsp ecif ied
== END 2017-01-23 15:28 | disposition home or self-care (01) ==
LOC: ER 15:02
DX: K94.23 Gastrostomy malfunction (principal); Z79.82 Long term (current) use of aspirin; I10 Essential (primary) hypertension; R56.9 Unspecified convulsions